=== PATIENT | male | born 1965 | race Caucasian/White ===

== ENCOUNTER → 2018-09-30 | Outpatient (CLI) | payer OTHER ==
--- NOTE | 2018-09-30 13:27 | XR ---
EXAMINATION TYPE: XR cervical spine comp DATE OF EXAM: 09/30/2018 TECHNIQUE: Frontal, lateral, oblique, and open mouth view of the cervical spine are obtained. HISTORY: M47.22 cervical spondylosis per order . Left arm tingling COMPARISON: None FINDINGS: The cervical spine is visualized in its entirety from C1 thru the top of T1 level, it is s traightened in alignment without evidence of acute fracture or dislocation. The pre-vertebral soft t issue appears within normal limits. The C1-C2 articulation is within normal limits on the open mouth view. There is anterior fusion plate with ossific fusion from C5 through C7 levels. C7 screws are so mewhat low in position encroaching near C7-T1 disc space on lateral view but appear to be within infe rior C7 vertebra and oblique images. There is mild disc space narrowing C3-C4 level. There is moderat e anterior spurring C3 and C4 vertebral body levels. Oblique images are satisfactory. Overlying soft tissue is unremarkable. Absent left C6 screw is noted on frontal view. IMPRESSION: Postsurgical changes C5-C7 level with straightened alignment. Desired arthrodesis felt pr esent. Other findings as noted above.
== END | disposition home or self-care (01) ==
LOC: RADXRMAIN 13:04
PROVIDERS: ATTEND Neurological Surgery
DX: M99.71 Connective tissue and disc stenosis of intervertebral foramina of cervical region (principal); Z98.1 Arthrodesis status
CPT/HCPCS: 72050

== ENCOUNTER → 2018-10-10 | Outpatient (CLI) | payer OTHER ==
--- NOTE | 2018-10-11 22:04 | CT ---
EXAMINATION TYPE: CT cervical spine wo con DATE OF EXAM: 10/10/2018 COMPARISON: 09/16/2018 MRI of the cervical spine from [facility]. HISTORY: Left side neck pain with radiation to the left arm. Left arm numbness also. CT DLP: 1169 mGycm. Automated Exposure Control for Dose Reduction was Utilized. TECHNIQUE: CT scan of the cervical spine is obtained without contrast, axial images are obtained, sa gittal and coronal reformatted images are also reviewed. FINDINGS: Postsurgical changes are seen of C5-C7 with anterior cervical fusion device as seen on the prior exam. There is osseous fusion of these vertebrae is and resultant straightening of the usual ce rvical lordosis. There is grade 1 anterolisthesis of C3 on C4 and a small posterior disc osteophyte c omplex of C4-C5. No evidence of acute fracture or dislocation of the cervical spine is seen. No hardw are fracture. Degenerative endplate changes are most pronounced at C3-C4. Multilevel uncovertebral hy pertrophy and facet arthropathy are seen. C2-C3: There is a small broad-based disc bulge and pronounced left facet arthropathy with uncovertebr al hypertrophy creating severe left neural foraminal narrowing and moderate right neural foraminal na rrowing. No spinal canal stenosis is evident. C3-C4: There is uncovertebral hypertrophy and facet arthropathy creating severe bilateral neural fora sophia narrowing. A left paracentral disc herniation is also seen creating moderate spinal canal steno sis despite the grade 1 anterolisthesis at this level. C4-C5: There is a small central disc herniation, uncovertebral hypertrophy and facet arthropathy crea ting moderate bilateral neural foraminal narrowing and mild spinal canal stenosis. C5-C7 postsurgical changes of anterior cervical fusion device and osseous fusion. At C5-C6 there is m ild bilateral neural foraminal narrowing and at C6-C7 there is severe right neural foraminal narrowin g and moderate left neural foraminal narrowing at C7-T1 there is no significant neural foraminal narr owing. Foraminal narrowing is from uncovertebral hypertrophy and facet arthropathy. Minimal biapical subsegmental atelectasis is seen. IMPRESSION: 1. Small central disc herniation at C4-C5 creating mild spinal canal stenosis. 2. Left paracentral disc herniation at C3-C4 creating moderate spinal canal stenosis. Grade 1 anterol isthesis is seen at this level, likely on a degenerative basis. 3. Moderate to severe multilevel degenerative disc disease creating variable degrees of neural forami nal narrowing as described above most severe at C2-C3 and C3-C4. 4. Postoperative changes of C5-C7 with resultant straightening of usual cervical lordosis. No evidenc e of acute fracture of the cervical spine or hardware fracture.
== END | disposition home or self-care (01) ==
LOC: RADCTMAIN 12:14
PROVIDERS: ATTEND Neurological Surgery
DX: M48.02 Spinal stenosis, cervical region (principal); M99.71 Connective tissue and disc stenosis of intervertebral foramina of cervical region; M50.11 Cervical disc disorder with radiculopathy, high cervical region; M43.12 Spondylolisthesis, cervical region; Z98.890 Other specified postprocedural states
CPT/HCPCS: 72125

== ENCOUNTER → 2019-11-09 | Outpatient (CLI) | payer OTHER ==
--- NOTE | 2019-11-09 12:02 | US ---
EXAMINATION TYPE: US gallbladder DATE OF EXAM: 11/09/2019 COMPARISON: NONE CLINICAL HISTORY: R10.11 RUQ PAIN. RUQ pain, nausea and vomiting for 1 month EXAM MEASUREMENTS: Liver Length: 21.4 cm Gallbladder Wall: 0.4 cm CBD: 0.6 cm Right Kidney: 12.1 x 5.0 x 6.1 cm Pancreas: Tail obscured by overlying bowel gas Liver: enlarged, attenuating Gallbladder: stones noted, with one stone in neck, sludge, thickened GB wall. No pericholecystic flu id is noted. Evidence for sonographic Flores's sign: no CBD: wnl Right Kidney: no evidence of hydronephrosis or mass IMPRESSION: 1. Cholelithiasis. There is a thickened gallbladder wall. Correlate for acute cholecystitis. 2. Hepatomegaly with mild fatty infiltration.
== END | disposition home or self-care (01) ==
LOC: RADUSWWP 10:45
PROVIDERS: ATTEND Family Medicine
DX: K80.20 Calculus of gallbladder without cholecystitis without obstruction (principal); K82.8 Other specified diseases of gallbladder; K76.0 Fatty (change of) liver, not elsewhere classified; R16.0 Hepatomegaly, not elsewhere classified
CPT/HCPCS: 76705

== ENCOUNTER 2019-12-22 07:43 | Day surgery (SDC) | payer OTHER ==
[2019-12-21 10:03] VITALS: BMI 36.5
[~2019-12-22 07:43] MED LIST: DEXAMETHASONE SOD PHOSPHATE 10 MG/ML 1 ML VIAL IV ONE; HEPARIN SODIUM,PORCINE 5,000 UNIT/ML 1 ML VIAL SQ ONE; KETOROLAC 30 MG/ML 1 ML VIAL IVP SCH; LACTATED RINGERS 1,000 ML IV SCH; LIDOCAINE 1% (10MG/ML) FOR IV START INTRADERMA PRN; METOCLOPRAMIDE 5 MG/ML 2 ML VIAL IVP PRN; ONDANSETRON 4 MG/2 ML VIAL IVP ONE
[2019-12-22 08:18] LABS: Glucose,Whole Blood 114 mg/dL (75-99)
--- NOTE | 2019-12-22 08:47 | P.GSHP ---
History of Present Illness H&P Date: 12/22/19 Chief Complaint: Right upper quadrant pain This a 54-year-old male who's had complaints of right quadrant pain. Patient workup found have gallstones. He presents today for laparoscopic cholecystectomy. Past Medical History Past Medical History: COPD, Diabetes Mellitus, Hypertension History of Any Multi-Drug Resistant Organisms: MRSA Date of last positivie culture/infection: 1999 MDRO Source:: face Past Surgical History: Appendectomy Additional Past Surgical History / Comment(s): neck fusion bone from hip. back surgery d/t congenital defect. chain saw to face with sutures Past Anesthesia/Blood Transfusion Reactions: Previous Problems w/ Anesthesia Additional Past Anesthesia/Blood Transfusion Reaction / Comment(s): combative when coming out anesthesia Smoking Status: Current every day smoker - Past Family History Mother Family Medical History: No Reported History Medications and Allergies Home Medications Medication Instructions Recorded Confirmed Type Albuterol Inhaler [Ventolin Hfa 1 - 2 puff INHALATION DAILY PRN 12/21/19 12/22/19 History Inhaler] Gabapentin 800 mg PO QID 12/21/19 12/22/19 History Hydrocodone/Acetaminophen [[place] 1 tab PO TID 12/21/19 12/22/19 History 7.5-325] Ipratropium/Albuterol Sulfate 1 puff INHALATION DAILY PRN 12/21/19 12/22/19 History [Combivent Respimat Inhaler] Omeprazole 20 mg PO DAILY 12/21/19 12/22/19 History PARoxetine HCL [Paxil] 40 mg PO DAILY 12/21/19 12/22/19 History amLODIPine [Norvasc] 10 mg PO DAILY 12/21/19 12/22/19 History buPROPion HCL [buPROPion HCL SR] 150 mg PO DAILY 12/21/19 12/22/19 History metFORMIN HCL [Glucophage] 500 mg PO BID 12/21/19 12/22/19 History Allergies Allergy/AdvReac Type Severity Reaction Status Date / Time No Known Allergies Allergy Verified 12/22/19 08:00 Surgical - Exam Vital Signs Temp Pulse Resp BP Pulse Ox 98 F 51 L 16 146/73 94 L 12/22/19 08:04 12/22/19 08:04 12/22/19 08:04 12/22/19 08:04 12/22/19 08:04 - General well developed, well nourished, no distress - Eyes PERRL - ENT normal pinna - Neck no masses - Respiratory normal expansion - Cardiovascular Rhythm: regular - Abdomen Abdomen: soft Results - Labs Abnormal Lab Results - Last 24 Hours (Table) 12/22/19 Range/Units 08:14 POC Glucose (mg/dL) 114 H (75-99) mg/dL Assessment and Plan Assessment: Right upper quadrant pain Cholelithiasis We'll perform laparoscopic cholecystectomy.
[2019-12-22] MEDS ORDERED: MIDAZOLAM 2 MG/2 ML VIAL ONE (09:00)
[2019-12-22] MEDS ORDERED: GLYCOPYRROLATE 0.2 MG/ML 2 ML VIAL ONE (09:00)
[2019-12-22] MEDS ORDERED: LIDOCAINE 1% INJ 10MG/ML (20 ML MDV) ONE (09:00)
[2019-12-22] MEDS ORDERED: ROCURONIUM BROMIDE 10 MG/ML 5 ML VIAL IV ONE (09:00)
[2019-12-22] MEDS ORDERED: KETOROLAC 30 MG/ML 1 ML VIAL ONE (09:00)
[2019-12-22] MEDS ORDERED: PROPOFOL 10 MG/ML 20 ML VIAL IV ONE (09:00)
[2019-12-22] MEDS ORDERED: fentaNYL (PF) 50 MCG/ML 2 ML AMP ONE (09:00)
[2019-12-22] MEDS ORDERED: SUCCINYLCHOLINE CHLORIDE 100 MG/5 ML SYR IV ONE (09:00)
[2019-12-22] MEDS ORDERED: NEOSTIGMINE 1 MG/ML 10 ML VIAL ONE (09:00)
[2019-12-22] MEDS ORDERED: BUPIVACAINE (PF) 0.5% 30 ML VIAL SQ ONE (09:28)
[2019-12-22] MEDS ORDERED: LACTATED RINGERS 1,000 ML IV ONE ×2 (09:57)
--- NOTE | 2019-12-22 09:58 | P.OP ---
Date of Procedure: 12/22/19 Preoperative Diagnosis: Cholecystitis Cholelithiasis Postoperative Diagnosis: Cholecystitis Cholelithiasis Hydrops of gallbladder Procedure(s) Performed: Laparoscopic cholecystectomy Anesthesia: ILYA Surgeon: Curt Macedo Estimated Blood Loss (ml): 5 Pathology: other (Gallbladder) Condition: stable Disposition: PACU Description of Procedure: The patient was placed on the operating table. The patient received a general endotracheal tube anesthesia. The patients abdomen was prepped and draped in the usual sterile fashion. Through an infraumbilical stab incision, the fascia of the anterior abdominal wall was grasped with a pair of Kochers and then the Veress needle was placed in the peritoneal cavity. Position of the Veress needle was confirmed with positive drop test. The abdomen was then insufflated. After adequate insufflation, the 10 mm trocar was placed in the peritoneal cavity. Following this the laparoscope was placed in the peritoneal cavity. The patient was placed in the head-up, right side up position and then a 5 mm trocar was placed in the right lateral and right subcostal position under direct visualization. A 8 mm trocar was placed in the epigastric position. The gallbladder was grasped in the fundus and infundibulum. Traction on the gallbladder was placed in the lateral and the cephalad positions. The triangle of Calot was visualized.. The cystic duct was bluntly dissected until the union of the cystic duct and common bile duct was seen. A critical view of safety was achieved. The cystic duct was then divided and sealed with the Harmonic scissors. A PDS Endoloop was then placed throughout the cystic duct stump. The cystic artery divided and sealed with the Harmonic scissors. The gallbladder was then removed from the liver bed using Harmonic scissors. The gallbladder was then extracted through the epigastric port site. Operative field was checked for any bleeding spots and Harmonic scissors was used to coagulate the liver bed. The abdomen was irrigated. The trocars were removed. The skin was closed using interrupted 3-0 Vicryl suture. Dermabond dressing were applied. The patient tolerated the procedure well.
[2019-12-22 10:05] VITALS: TEMP 97.2
[2019-12-22 10:15] LABS: Glucose,Whole Blood 134 mg/dL (75-99)
[2019-12-22] MEDS: HYDROmorphone 0.5 MG/0.5 ML SYRINGE IVP PRN ×4 (10:19→10:40)
[2019-12-22 11:45] VITALS: BP 141/78; PULSE 57; RESP 18
== END 2019-12-22 12:03 | disposition home or self-care (01) ==
LOC: OR 07:43
PROVIDERS: ATTEND Surgery
DX: K81.1 Chronic cholecystitis (principal); K82.1 Hydrops of gallbladder; I10 Essential (primary) hypertension; J44.9 Chronic obstructive pulmonary disease, unspecified; E11.9 Type 2 diabetes mellitus without complications; F32.9 Major depressive disorder, single episode, unspecified; K21.9 Gastro-esophageal reflux disease without esophagitis; F17.200 Nicotine dependence, unspecified, uncomplicated; Z86.14 Personal history of Methicillin resistant Staphylococcus aureus infection; Z90.49 Acquired absence of other specified parts of digestive tract; Z79.84 Long term (current) use of oral hypoglycemic drugs; Z79.899 Other long term (current) drug therapy; Z98.1 Arthrodesis status
CPT/HCPCS: 88304; 47562; J2250; J1644; J1100; J2710; J0690; J2405; J2001; J3010; J1885; J0330; J2704; J1170

== ENCOUNTER 2020-01-25 06:34 | Day surgery (SDC) | payer OTHER ==
[2020-01-20 14:07] VITALS: BMI 36.5
[~2020-01-25 06:34] MED LIST changes: -DEXAMETHASONE SOD PHOSPHATE 10 MG/ML 1 ML VIAL IV ONE; -HEPARIN SODIUM,PORCINE 5,000 UNIT/ML 1 ML VIAL SQ ONE; -KETOROLAC 30 MG/ML 1 ML VIAL IVP SCH; -METOCLOPRAMIDE 5 MG/ML 2 ML VIAL IVP PRN; -ONDANSETRON 4 MG/2 ML VIAL IVP ONE
[2020-01-25 07:09] VITALS: TEMP 98.3
[2020-01-25 07:18] LABS: Glucose,Whole Blood 107 mg/dL (75-99)
[2020-01-25] MEDS ORDERED: PROPOFOL 10 MG/ML 20 ML VIAL IV ONE (07:52)
[2020-01-25] MEDS ORDERED: LIDOCAINE 1% INJ 10MG/ML (20 ML MDV) ONE (07:52)
--- NOTE | 2020-01-25 07:54 | P.GSHP ---
History of Present Illness H&P Date: 01/25/20 Chief Complaint: Epigastric pain This a 54-year-old male who presents today for EGD. Patient's had complaints of epigastric pain. Past Medical History Past Medical History: COPD, Diabetes Mellitus, GERD/Reflux, Hypertension History of Any Multi-Drug Resistant Organisms: MRSA Date of last positivie culture/infection: 1999 MDRO Source:: face Past Surgical History: Appendectomy, Cholecystectomy Additional Past Surgical History / Comment(s): neck fusion bone from hip. back surgery d/t congenital defect. chain saw to face with sutures. COLONOSCOPY Past Anesthesia/Blood Transfusion Reactions: Previous Problems w/ Anesthesia Additional Past Anesthesia/Blood Transfusion Reaction / Comment(s): combative when coming out anesthesia Smoking Status: Current every day smoker - Past Family History Mother Family Medical History: Deep Vein Thrombosis (DVT) Medications and Allergies Home Medications Medication Instructions Recorded Confirmed Type Albuterol Inhaler [Ventolin Hfa 1 - 2 puff INHALATION DAILY PRN 12/21/19 01/25/20 History Inhaler] Gabapentin 800 mg PO QID 12/21/19 01/25/20 History Hydrocodone/Acetaminophen [[place] 1 tab PO TID 12/21/19 01/25/20 History 7.5-325] Ipratropium/Albuterol Sulfate 1 puff INHALATION DAILY PRN 12/21/19 01/25/20 History [Combivent Respimat Inhaler] Omeprazole 20 mg PO DAILY 12/21/19 01/25/20 History PARoxetine HCL [Paxil] 40 mg PO DAILY 12/21/19 01/25/20 History amLODIPine [Norvasc] 10 mg PO DAILY 12/21/19 01/25/20 History buPROPion HCL [buPROPion HCL SR] 150 mg PO DAILY 12/21/19 01/25/20 History metFORMIN HCL [Glucophage] 500 mg PO BID 12/21/19 01/25/20 History Sucralfate [Carafate] 1 gm PO BID 01/20/20 01/25/20 History Allergies Allergy/AdvReac Type Severity Reaction Status Date / Time No Known Allergies Allergy Verified 01/25/20 07:07 Surgical - Exam Vital Signs Temp Pulse Resp BP Pulse Ox 98.3 F 59 L 17 159/92 96 01/25/20 07:08 01/25/20 07:08 01/25/20 07:08 01/25/20 07:08 01/25/20 07:08 - General well developed, well nourished, no distress - Eyes PERRL - ENT normal pinna - Neck no masses - Respiratory normal expansion - Cardiovascular Rhythm: regular - Abdomen Abdomen: soft, non tender Results - Labs Abnormal Lab Results - Last 24 Hours (Table) 01/25/20 Range/Units 07:08 POC Glucose (mg/dL) 107 H (75-99) mg/dL Assessment and Plan Assessment: Epigastric pain. We'll perform EGD tonight for gastritis.
--- NOTE | 2020-01-25 08:06 | P.OP ---
Date of Procedure: 01/25/20 Preoperative Diagnosis: Epigastric pain Postoperative Diagnosis: Mild antral gastritis Procedure(s) Performed: EGD Anesthesia: MAC Surgeon: Curt Macedo Pathology: other (Antrum, esophagus) Condition: stable Disposition: PACU Description of Procedure: The patient's placed on the endoscopy table in the lateral position. He received IV sedation. The gastroscope placed oropharynx passed in the esophagus and into the stomach. Scope was then placed through the pylorus. The first and second portion of the duodenum appeared normal. The scope was then brought back the antrum this was mildly inflamed. A biopsies performed. The scope was unretroflexed and remainder the stomach appeared normal. The GE junction was visualized. There is no significant hiatal hernia. The GE junction was at 40 cm The distal esophagus appeared inflamed a biopsies performed. The proximal esophagus appeared normal. Scope was withdrawn for patient.
[2020-01-25 08:24] VITALS: BP 143/85; PULSE 55; RESP 16
== END 2020-01-25 08:38 | disposition home or self-care (01) ==
LOC: ORWHC2ENDO 06:34
PROVIDERS: ATTEND Surgery
DX: K29.50 Unspecified chronic gastritis without bleeding (principal); K21.0 Gastro-esophageal reflux disease with esophagitis; I10 Essential (primary) hypertension; E11.9 Type 2 diabetes mellitus without complications; J44.9 Chronic obstructive pulmonary disease, unspecified; Z90.49 Acquired absence of other specified parts of digestive tract; Z86.14 Personal history of Methicillin resistant Staphylococcus aureus infection; Z79.84 Long term (current) use of oral hypoglycemic drugs; Z79.899 Other long term (current) drug therapy; Z98.1 Arthrodesis status; F17.200 Nicotine dependence, unspecified, uncomplicated
CPT/HCPCS: 88305; 43239; J2001; J2704

== ENCOUNTER 2020-02-04 16:04 | Observation (INO) | payer OTHER ==
[2020-02-04 17:12] LABS: Basophils # (A) 0.1 k/uL (0-0.2); Basophils % (A) 1 %; Eosinophils # (A) 0.2 k/uL (0-0.7); Eosinophils % (A) 2 %; HCT 51.9 % (39.0-53.0); HGB 17.3 gm/dL (13.0-17.5); Lymphocytes # (A) 2.3 k/uL (1.0-4.8); Lymphocytes % (A) 17 %; MCHC 33.4 g/dL (31.0-37.0); MCV 93.1 fL (80.0-100.0); Mean Platelet Volume 6.8; Monocytes # (A) 0.9 k/uL (0-1.0); Monocytes % (A) 7 %; Neutrophils # (A) 9.6 k/uL (1.3-7.7); Neutrophils % (A) 72 %; Platelet Count 364 k/uL (150-450); RBC 5.58 m/uL (4.30-5.90); RDW 13.5 % (11.5-15.5); WBC 13.2 k/uL (3.8-10.6)
[2020-02-04 17:35] LABS: ALT 30 U/L (4-49); AST 66 U/L (17-59); African American GFR (CKD) >90 (>60 ml/min/1.73 sqM); Albumin 4.9 g/dL (3.5-5.0); Alkaline Phosphatase 94 U/L (38-126); Anion Gap 10 mmol/L; Blood Urea Nitrogen 13 mg/dL (9-20); Calcium 9.8 mg/dL (8.4-10.2); Carbon Dioxide 25 mmol/L (22-30); Chloride 102 mmol/L (98-107); Glucose 119 mg/dL (74-99); Magnesium 1.9 mg/dL (1.6-2.3); Non-African American GFR(CKD) >90 (>60 ml/min/1.73 sqM); Potassium 4.1 mmol/L (3.5-5.1); Sodium 137 mmol/L (137-145); Total Bilirubin 1.4 mg/dL (0.2-1.3); Total Protein 7.4 g/dL (6.3-8.2)
[2020-02-04] MEDS ORDERED: ASPIRIN 81 MG PO STA (17:36)
[2020-02-04] MEDS ORDERED: MORPHINE SULFATE 4 MG/ML SYRINGE IVP STA (17:36)
--- NOTE | 2020-02-04 17:38 | ED ---
Chest Pain HPI - General Chief Complaint: Chest Pain Stated Complaint: chest pain Time Seen by Provider: 02/04/20 16:10 Source: patient Mode of arrival: wheelchair Limitations: no limitations - History of Present Illness Initial Comments: The patient is a 54-year-old male with no past cardiac history presents emergency Department with reported chest pain. He states that he has had the pain for several weeks. It all started after he got his gallbladder removed 3 weeks ago. He describes it as a sharp shooting pain which is located in the center of his chest. States he is previously hospitalized at [facility] where they did an upper endoscopy on him. He stated it was negative. He did have a stress test prior to his gall bladder surgery and was normal therefore he was able to proceed with the procedure. He denies any provocative factors. States it awoke him from sleep at 2 AM. Pain has been constant. It does not take any medications for his symptoms. Does make him diaphoretic and short of breath. States the pain is 10 out of 10. He attempted to call his primary care doctor who per the patient has stated that he may require hospitalization for this continued pain. He denies history of cardiac arrhythmias. No ripping or tearing sensation to his back. Denies any vomiting. No changes in his bowel or bladder habits. Denies any unilateral numbness or weakness into his legs. - Related Data Home Medications Medication Instructions Recorded Confirmed Albuterol Inhaler [Ventolin Hfa 1 - 2 puff INHALATION RT-QID PRN 12/21/19 02/05/20 Inhaler] Gabapentin 800 mg PO QID 12/21/19 02/05/20 Hydrocodone/Acetaminophen [[place] 1 tab PO TID 12/21/19 02/05/20 7.5-325] Ipratropium/Albuterol Sulfate 1 puff INHALATION RT-QID PRN 12/21/19 02/05/20 [Combivent Respimat Inhaler] Omeprazole 20 mg PO DAILY 12/21/19 02/05/20 PARoxetine HCL [Paxil] 40 mg PO DAILY 12/21/19 02/05/20 amLODIPine [Norvasc] 10 mg PO DAILY 12/21/19 02/05/20 buPROPion HCL [buPROPion HCL SR] 150 mg PO DAILY 12/21/19 02/05/20 metFORMIN HCL [Glucophage] 500 mg PO BID 12/21/19 02/05/20 Sucralfate [Carafate] 1 gm PO BID 01/20/20 02/05/20 Allergies Allergy/AdvReac Type Severity Reaction Status Date / Time No Known Allergies Allergy Verified 02/05/20 09:58 Review of Systems ROS Statement: Those systems with pertinent positive or pertinent negative responses have been documented in the HPI. ROS Other: All systems not noted in ROS Statement are negative. EKG Findings - EKG Comments: EKG Findings:: EKG demonstrates a sinus bradycardia with a ventricular rate of 54. AK interval 186. QRS 90. QTC 413. No acute ST segment elevations or depressions concerning for ischemic changes Past Medical History Past Medical History: COPD, Diabetes Mellitus, GERD/Reflux, Hypertension History of Any Multi-Drug Resistant Organisms: MRSA Date of last positivie culture/infection: 1999 MDRO Source:: face Past Surgical History: Appendectomy, Cholecystectomy Additional Past Surgical History / Comment(s): neck fusion bone from hip. back surgery d/t congenital defect. chain saw to face with sutures. COLONOSCOPY Past Anesthesia/Blood Transfusion Reactions: Previous Problems w/ Anesthesia Additional Past Anesthesia/Blood Transfusion Reaction / Comment(s): combative when coming out anesthesia Past Psychological History: Anxiety, Depression Smoking Status: Current every day smoker Past Alcohol Use History: None Reported Past Drug Use History: None Reported - Past Family History Mother Family Medical History: Deep Vein Thrombosis (DVT) General Exam Limitations: no limitations General appearance: alert, in no apparent distress Head exam: Present: atraumatic, normocephalic, normal inspection Eye exam: Present: normal appearance, PERRL, EOMI. Absent: scleral icterus, conjunctival injection, periorbital swelling ENT exam: Present: normal exam, mucous membranes moist Neck exam: Present: normal inspection. Absent: tenderness, meningismus, lymphadenopathy Respiratory exam: Present: normal lung sounds bilaterally. Absent: respiratory distress, wheezes, rales, rhonchi, stridor Cardiovascular Exam: Present: regular rate, normal rhythm, normal heart sounds. Absent: systolic murmur, diastolic murmur, rubs, gallop, clicks GI/Abdominal exam: Present: soft, normal bowel sounds. Absent: distended, tenderness, guarding, rebound, rigid Extremities exam: Present: normal inspection, full ROM, normal capillary refill. Absent: tenderness, pedal edema, joint swelling, calf tenderness Back exam: Present: normal inspection Neurological exam: Present: alert, oriented X3, CN II-XII intact Psychiatric exam: Present: normal affect, normal mood Skin exam: Present: warm, dry, intact, normal color. Absent: rash Course Vital Signs 02/04/20 02/04/20 02/04/20 16:07 18:27 20:00 Temperature 97.5 F L 98.1 F Pulse Rate 60 62 Pulse Rate [ 160 H Left] Respiratory 18 16 18 Rate Blood Pressure 159/94 156/88 Blood Pressure 160/84 [Left Arm] O2 Sat by Pulse 97 96 98 Oximetry 02/04/20 20:30 Temperature Pulse Rate 59 L Pulse Rate [ Left] Respiratory 18 Rate Blood Pressure 134/88 Blood Pressure [Left Arm] O2 Sat by Pulse 95 Oximetry Chest Pain MDM - MDM Upon arrival the patient was placed into room 11. A thorough history and physical exam is performed. The patient is given 4 mg of morphine for pain control. He is also given a dose of aspirin. 12-lead EKG was performed which demonstrates no acute ST segment elevation. Laboratory studies were conducted. Because of the patient's persistent chest pain I did CT his chest for possible PE. Laboratory studies ventricular with blood cell count 13.2. Troponin is negative. CT of the patient's chest demonstrates no acute process. The patient does have reproducible pain with palpation of his sternum. I called and discussed case with Dr. Brito who accepted admission for the patient. We will trend his troponins and have cardiology evaluate him. The patient was transferred to the floor in stable condition Disposition Clinical Impression: Chest pain Disposition: ADMITTED IP TO THIS HOSP Condition: Stable Is patient prescribed a controlled substance at d/c from ED?: No Decision to Admit Reason: Admit from EC Decision Date: 02/04/20 Decision Time: 19:42
[2020-02-04] MEDS ORDERED: HYDROmorphone 1 MG/ML 1 ML SYRINGE IVP STA (18:57)
--- NOTE | 2020-02-04 19:25 | CT ---
EXAMINATION TYPE: CT chest angio for PE with contrast with 3-D reconstruction renderings DATE OF EXAM: 02/04/2020 COMPARISON: None HISTORY: Chest pain CT DLP: 805.2 mGycm Automated exposure control for dose reduction was used. CONTRAST: CT Chest for pulmonary embolism performed with with IV Contrast, patient injected with 100 mL of Isovue 370. FINDINGS: LUNGS: The lungs are grossly clear, there is no concerning parenchymal mass or nodule identified. The re is no pleural effusion or pneumothorax seen. The tracheobronchial tree is patent. MEDIASTINUM: There is satisfactory enhancement of the pulmonary artery and its branches, with no CT e vidence for pulmonary embolism. No acute aortic findings. No cardiomegaly or pericardial effusion. No adenopathy. OTHER: No additional significant abnormality is seen. IMPRESSION: No acute process.
[2020-02-04] MEDS ORDERED: NITROGLYCERIN OINT 1 INCH/GM PACKET TOPICAL STA (19:40)
[2020-02-04] MEDS ORDERED: NALOXONE 0.4 MG/ML 1 ML VIAL IV PRN (19:42)
[2020-02-04] MEDS ORDERED: IPRATROPIUM-ALBUTEROL 3 ML NEB INHALATION PRN (20:02)
[2020-02-04] MEDS: MORPHINE SULFATE 4 MG/ML SYRINGE IV PRN (22:03)
[2020-02-04] MEDS: GABAPENTIN 400 MG CAP PO SCH (22:04)
--- NOTE | 2020-02-04 22:59 | CT ---
EXAMINATION TYPE: CT abdomen pelvis wo con DATE OF EXAM: 02/04/2020 COMPARISON: None HISTORY: abd pain CT DLP: 1205.4 mGycm Automated exposure control for dose reduction was used. Images are obtained from the diaphragm to the floor the pelvis with no contrast. There is mild subsegmental atelectasis at both posterior lung bases. Heart appears slightly enlarged. There is no pericardial effusion. Stomach is intact. Liver shows no focal defect. Liver is enlarged and measures 21 cm in length. The bile ducts are not dilated. It is not clear if the gallbladder is p resent. There is probably a contracted gallbladder with some calcified gallstones. There are clips ap parently from cholecystectomy. There is no pancreatic mass. Spleen appears normal. There is no adrenal mass. There is contrast in both kidneys from chest CT scan earlier today. There i s no hydronephrosis. Ureters are not dilated. There is probably a 12 mm cyst in the lateral right kid lola. There is no retroperitoneal adenopathy. Bladder distends smoothly without contrast. There is no inguinal hernia. There is no free fluid in the pelvis. There is no evidence of pelvic mass. Appendix is not seen. There is no sign of a thickened appendix. There is no mesenteric edema. There is no ascites or free air. There is no evidence of bowel obstruct ion. There is some degenerative spurring in the lumbar spine. There is no evidence of focal bone dest ruction. Bony pelvis is intact. IMPRESSION: Mild hepatomegaly. Contracted gallbladder with small calcified gallstones. Mild patchy atelectasis at the lung bases.
[2020-02-05] MEDS: MORPHINE SULFATE 4 MG/ML SYRINGE IV PRN ×3 (01:04→08:50)
--- NOTE | 2020-02-05 04:44 | HP ---
HISTORY AND PHYSICAL 54-year-old white male came to the hospital with chest pain for several weeks, started after he had his gallbladder removed 3 weeks ago. His current pain is in the center of his chest. He had upper endoscopy recently which was normal. He had a stress test prior to his gallbladder surgery which was normal. Does make him diaphoretic and short of breath. Pain is 10/10. He has no ripping or tearing sensation in his back. CT of the chest was negative. He has elevated liver enzymes. Will consult with surgeon who did the surgery. HOME MEDS: Albuterol, gabapentin, Paxil, Norvasc, Wellbutrin, Glucophage, Carafate, [place]. REVIEW OF SYSTEMS: Fourteen-point review of systems negative except for mentioned in HPI. EKG shows sinus bradycardia. No ST-T changes. Negative troponin. PAST MEDICAL HISTORY: COPD, diabetes mellitus, GERD, hypertension, status post cholecystectomy, appendectomy and fusion; anxiety, depression and current everyday smoker. FAMILY HISTORY: Mother DVT. PHYSICAL EXAMINATION: Blood pressure is 150s/80s to 90s, O2 96-97, pulse rate 16, temp 97.5, respiratory 16- 18. CARDIOVASCULAR: S1-S2. LUNGS: Show mild wheeze x4. HEMATOLOGY: Negative Homans. PSYCH: Fair mood and affect. NEUROLOGIC: Alert and oriented x3. LUNGS: Show scattered wheeze, rales at the bases. ASSESSMENT: 1. Atypical chest pain. 2. Chronic obstructive pulmonary disease. 3. Diabetes. 4. Hypertension. Rule out elevated liver enzymes. Will get cardiology to clear him for discharge with possible surgeon to check him out for his liver and elevated liver enzymes. MMODL / IJN: [id number] /
[2020-02-05 06:38] LABS: Glucose,Whole Blood 146 mg/dL (75-99)
[2020-02-05 06:51] LABS: Basophils % (A) 0 %; Eosinophils # (A) 0.1 k/uL (0-0.7); Eosinophils % (A) 1 %; HCT 51.8 % (39.0-53.0); HGB 16.9 gm/dL (13.0-17.5); Lymphocytes # (A) 0.8 k/uL (1.0-4.8); Lymphocytes % (A) 8 %; MCH 30.6 pg (25.0-35.0); MCHC 32.7 g/dL (31.0-37.0); MCV 93.6 fL (80.0-100.0); Mean Platelet Volume 6.9; Monocytes # (A) 0.7 k/uL (0-1.0); Monocytes % (A) 7 %; Neutrophils # (A) 7.6 k/uL (1.3-7.7); Neutrophils % (A) 82 %; Platelet Count 338 k/uL (150-450); RBC 5.54 m/uL (4.30-5.90); RDW 13.4 % (11.5-15.5); WBC 9.3 k/uL (3.8-10.6)
[2020-02-05 06:59] LABS: African American GFR (CKD) >90 (>60 ml/min/1.73 sqM); Anion Gap 10 mmol/L; Blood Urea Nitrogen 11 mg/dL (9-20); Calcium 9.4 mg/dL (8.4-10.2); Carbon Dioxide 25 mmol/L (22-30); Chloride 101 mmol/L (98-107); Glucose 138 mg/dL (74-99); Non-African American GFR(CKD) >90 (>60 ml/min/1.73 sqM); Potassium 4.6 mmol/L (3.5-5.1); Sodium 136 mmol/L (137-145)
[2020-02-05] MEDS ORDERED: MAG HYDROX/AL HYDROX/SIMETH 30 ML, HYOSCYAMINE ELIXIR 10 ML, LIDOCAINE VISCOUS 2% 10 ML PO ONE ×3 (07:59)
[2020-02-05] MEDS: PANTOPRAZOLE 40 MG TABLET PO SCH (08:45)
[2020-02-05] MEDS: GABAPENTIN 400 MG CAP PO SCH ×4 (08:45→20:56)
[2020-02-05] MEDS: buPROPion SR 150 MG TABLET.ER PO SCH (08:45)
[2020-02-05] MEDS: amLODIPine 10 MG TAB PO SCH (08:46)
--- NOTE | 2020-02-05 09:37 | P.CRDCN ---
History of Present Illness History of present illness: HISTORY OF PRESENTING ILLNESS This is a pleasant 54-year-old male past medical history significant for COPD, diabetes mellitus, hypertension, chronic nicotine dependence, regular marijuana use and recent cholecystectomy. 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 We have been asked to see in consultation for chest pain. Patient was seen and examined laying flat resting comfortably in bed. He presented to the hospital with symptoms of epigastric discomfort that radiates around his upper torso. He states the pain is intermittent with no specific aggravating factor. He is starting to have discomfort currently as I'm examining him. He is tender in the epigastric region. He denies shortness of breath, dizziness or palpitations. He does have some mild intermittent nausea. He underwent a cholecystectomy November 2019 and then an EGD last month revealing gastritis. DIAGNOSTICS EKG reveals sinus bradycardia heart rate of 54 and no acute ischemic changes. CTA chest reveals the lungs are grossly clear with no concerning mass or nodule identified, tracheobronchial tree is patent, no CT evidence for pulmonary embolism in no acute aortic findings. Laboratory reviewed, to be VC on admission 13.2 repeat this morning 9.3, hemoglobin 16.9, platelets 338, sodium 136, potassium 4.6, creatinine 0.71, total bilirubin 1.4, cardiac enzymes negative 3. Current cardiac medications include amlodipine 10 mg daily. REVIEW OF SYSTEMS At the time of my exam: CONSTITUTIONAL: Denies fever or chills. CARDIOVASCULAR: Denies chest pain, shortness of breath, orthopnea, PND or palpitations. RESPIRATORY: Denies cough. GASTROINTESTINAL: Complains of epigastric abdominal pain and nausea. Denies diarrhea, constipation or vomiting. MUSCULOSKELETAL: Denies myalgias. NEUROLOGIC: Denies numbness, tingling or weakness. ENDOCRINE: Denies fatigue, weight change, polydipsia or polyurina. GENITOURINARY: Denies burning, hematuria or urgency with micturation. HEMATOLOGIC: Denies history of anemia or bleeding. PHYSICAL EXAMINATION Blood pressure 157/79 heart rate 64 afebrile and maintaining oxygen saturation on room air. CONSTITUTIONAL: No apparent distress. HEENT: Head is normocephalic. Pupils are equal, round. Sclerae anicteric. Mucous membranes of the mouth are moist. No JVD. No carotid bruit. CHEST EXAMINATION: Lungs are clear to auscultation. No chest wall tenderness is noted on palpation or with deep breathing. HEART EXAMINATION: Regular rate and rhythm. S1, S2 heard. No murmurs, gallops or rub. ABDOMEN: Soft, significant epigastric tenderness. Positive bowel sounds. EXTREMITIES: 2+ peripheral pulses, no lower extremity edema and no calf tenderness. NEUROLOGIC EXAMINATION: Patient is awake, alert and oriented x3. ASSESSMENT Epigastric pain and tenderness, atypical for angina. An acute coronary event has been ruled out. Hypertension Diabetes mellitus COPD Chronic nicotine dependence PLAN Pain is atypical to be related to angina likely related to GI etiology. An acute coronary event has been ruled out. Given GI cocktail x1 now. Check lipase. Ongoing medical management and evaluation. Recommend outpatient stress testing when abdominal symptoms have improved. Follow in the office with Dr. Rausch upon discharge. Thank you kindly for this consultation. Nurse Practitioner note has been reviewed, I agree with a documented findings and plan of care. Patient was seen and examined. Past Medical History Past Medical History: COPD, Diabetes Mellitus, GERD/Reflux, Hypertension History of Any Multi-Drug Resistant Organisms: MRSA Date of last positivie culture/infection: 1999 MDRO Source:: face Past Surgical History: Appendectomy, Cholecystectomy Additional Past Surgical History / Comment(s): neck fusion bone from hip. back surgery d/t congenital defect. chain saw to face with sutures. COLONOSCOPY Past Anesthesia/Blood Transfusion Reactions: Previous Problems w/ Anesthesia Additional Past Anesthesia/Blood Transfusion Reaction / Comment(s): combative when coming out anesthesia Past Psychological History: Anxiety, Depression Smoking Status: Current every day smoker Past Alcohol Use History: None Reported Past Drug Use History: None Reported - Past Family History Mother Family Medical History: Deep Vein Thrombosis (DVT) Medications and Allergies Home Medications Medication Instructions Recorded Confirmed Type Albuterol Inhaler [Ventolin Hfa 1 - 2 puff INHALATION DAILY PRN 12/21/19 02/04/20 History Inhaler] Gabapentin 800 mg PO QID 12/21/19 02/04/20 History Hydrocodone/Acetaminophen [[place] 1 tab PO TID 12/21/19 02/04/20 History 7.5-325] Ipratropium/Albuterol Sulfate 1 puff INHALATION DAILY PRN 12/21/19 02/04/20 History [Combivent Respimat Inhaler] Omeprazole 20 mg PO DAILY 12/21/19 02/04/20 History PARoxetine HCL [Paxil] 40 mg PO DAILY 12/21/19 02/04/20 History amLODIPine [Norvasc] 10 mg PO DAILY 12/21/19 02/04/20 History buPROPion HCL [buPROPion HCL SR] 150 mg PO DAILY 12/21/19 02/04/20 History metFORMIN HCL [Glucophage] 500 mg PO BID 12/21/19 02/04/20 History Sucralfate [Carafate] 1 gm PO BID 01/20/20 02/04/20 History Allergies Allergy/AdvReac Type Severity Reaction Status Date / Time No Known Allergies Allergy Verified 02/04/20 22:09 Physical Exam Vitals: Vital Signs Temp Pulse Pulse Pulse Resp BP BP 02/05/20 07:15 98.3 F 64 18 157/79 02/05/20 04:00 98.0 F 76 16 148/76 02/04/20 20:30 59 L 18 134/88 02/04/20 20:00 98.1 F 160 H 18 160/84 02/04/20 18:27 62 16 156/88 02/04/20 16:07 97.5 F L 60 18 159/94 Pulse Ox 02/05/20 07:15 95 02/05/20 04:00 97 02/04/20 20:30 95 02/04/20 20:00 98 02/04/20 18:27 96 02/04/20 16:07 97 Intake and Output 02/04/20 02/05/20 02/05/20 22:59 06:59 14:59 Other: Voiding Method Toilet Toilet # Voids 1 Weight 108.862 kg 109.5 kg Results 02/05/20 06:13 02/05/20 06:13 Cardiac Enzymes 02/04/20 02/04/20 02/04/20 Range/Units 16:56 16:56 23:07 AST 66 H (17-59) U/L Troponin I <0.012 <0.012 (0.000-0.034) ng/mL 02/05/20 Range/Units 06:13 AST (17-59) U/L Troponin I <0.012 (0.000-0.034) ng/mL Coagulation 02/04/20 Range/Units 16:56 PT 10.0 (9.0-12.0) sec APTT 24.0 (22.0-30.0) sec CBC 02/04/20 02/05/20 Range/Units 16:56 06:13 WBC 13.2 H 9.3 (3.8-10.6) k/uL RBC 5.58 5.54 (4.30-5.90) m/uL Hgb 17.3 16.9 (13.0-17.5) gm/dL Hct 51.9 51.8 (39.0-53.0) % Plt Count 364 338 (150-450) k/uL Comprehensive Metabolic Panel 02/04/20 02/05/20 Range/Units 16:56 06:13 Sodium 137 136 L (137-145) mmol/L Potassium 4.1 4.6 (3.5-5.1) mmol/L Chloride 102 101 (98-107) mmol/L Carbon Dioxide 25 25 (22-30) mmol/L BUN 13 11 (9-20) mg/dL Creatinine 0.75 0.71 (0.66-1.25) mg/dL Glucose 119 H 138 H (74-99) mg/dL Calcium 9.8 9.4 (8.4-10.2) mg/dL AST 66 H (17-59) U/L ALT 30 (4-49) U/L Alkaline Phosphatase 94 (38-126) U/L Total Protein 7.4 (6.3-8.2) g/dL Albumin 4.9 (3.5-5.0) g/dL Current Medications Generic Name Dose Route Start Last Admin Trade Name Freq PRN Reason Stop Dose Admin Albuterol/Ipratropium 3 ml 02/04/20 20:02 Duoneb 0.5 Mg-3 Mg/3 Ml Soln INHALATION DAILY PRN Dyspnea Amlodipine Besylate 10 mg 02/05/20 09:00 Norvasc PO DAILY [facility] Bupropion HCl 150 mg 02/05/20 09:00 Wellbutrin Sr PO DAILY [facility] Gabapentin 800 mg 02/04/20 22:00 02/04/20 22:04 Neurontin PO 800 mg QID FROILAN Administration Morphine Sulfate 4 mg 02/04/20 19:42 02/05/20 04:16 Morphine Sulfate (Inj) IV 4 mg Q4HR PRN Administration Severe Pain Naloxone HCl 0.2 mg 03/12/20 19:42 Narcan IV Q2M PRN Opioid Reversal Pantoprazole Sodium 40 mg 02/05/20 07:30 Protonix PO AC-[id number] FROILAN Intake and Output 02/04/20 02/05/20 02/05/20 22:59 06:59 14:59 Other: Voiding Method Toilet Toilet # Voids 1 Weight 108.862 kg 109.5 kg 02/05/20 06:13 02/05/20 06:13
[2020-02-05 09:41] LABS: Albumin 4.5 g/dL (3.5-5.0); Bilirubin, Conjugated 1.3 mg/dL (0.0-0.3); Bilirubin,Unconjugated 1.6 mg/dL (0.0-1.1); Total Bilirubin 3.9 mg/dL (0.2-1.3)
--- NOTE | 2020-02-05 10:52 | P.GSCN ---
History of Present Illness Consult date: 02/05/20 Reason for Consult: abdominal pain Requesting physician: Deuce Brito History of present illness: CHIEF COMPLAINT: Abdominal pain HISTORY OF PRESENT ILLNESS: 54-year-old male who presented to the emergency room with a chief complaint of abdominal pain. Patient has a history of laparoscopic cholecystectomy performed in November [address] Macedo. Patient also underwent EGD in January 2020 revealing mild antral gastritis. Patient reports he began having epigastric pain 2 days ago. He denies nausea or vomiting. Denies fever or chills. Denies diarrhea or constipation. Patient is currently rating his pain 10/10. Denies use of alcohol. Denies use of NSAIDs. PAST MEDICAL HISTORY: See list. PAST SURGICAL HISTORY: See list. SOCIAL HISTORY: No illicit drug use. REVIEW OF SYSTEMS: CONSTITUTIONAL: Denies fever or chills. HEENT: Denies blurred vision, vision changes, or eye pain. Denies hemoptysis CARDIOVASCULAR: Denies chest pain or pressure. RESPIRATORY: No shortness of breath. GASTROINTESTINAL: Refer to HPI for pertinent findings HEMATOLOGIC: Denies bleeding disorders. GENITOURINARY: Denies any blood in urine. SKIN: Denies pruitis. Denies rash. PHYSICAL EXAM: VITAL SIGNS: Reviewed. GENERAL: Well-developed. Appears to be in pain and uncomfortable. HEENT: No sclera icterus. Extraocular movements grossly intact. Moist buccal mucosa. Head is atraumatic, normocephalic. ABDOMEN: Soft. Nondistended. Tenderness with palpation of epigastric region NEUROLOGIC: Alert and oriented. Cranial nerves II through XII grossly intact. LABORATORY DATA: WBC 13.2. Repeat 9.3. Bilirubin 1.4 on admission. AST 66. ALT 30. Repeat labs this morning revealed bilirubin 3.9. AST 683. ALT 501. Amylase 35. Lipase 73. IMAGING: CT abdomen and pelvis: Small calcified gallstones. No pancreatic mass. Spleen appears normal., Bile ducts not dilated. Liver is enlarged and measures 21cm in length. ASSESSMENT: 1. Epigastric pain 2. Transaminitis 3. Hyperbilirubinemia 4. Suspected retained common bile duct stone 5. History of cholecystectomy, November 2019 PLAN: NPO Consult GI for evaluation. Anticipate MRCP/ERCP Pain control No surgical intervention recommended Nurse practitioner note has been reviewed by physician. Signing provider agrees with the documented findings, assessment, and plan of care. Past Medical History Past Medical History: COPD, Diabetes Mellitus, GERD/Reflux, Hypertension History of Any Multi-Drug Resistant Organisms: MRSA Year Discovered:: 1999 MDRO Source:: face Past Surgical History: Appendectomy, Cholecystectomy Additional Past Surgical History / Comment(s): neck fusion bone from hip. back surgery d/t congenital defect. chain saw to face with sutures. COLONOSCOPY Past Anesthesia/Blood Transfusion Reactions: Previous Problems w/ Anesthesia Additional Past Anesthesia/Blood Transfusion Reaction / Comm: combative when coming out anesthesia Past Psychological History: Anxiety, Depression Smoking Status: Current every day smoker Past Alcohol Use History: None Reported Past Drug Use History: None Reported - Past Family History Mother Family Medical History: Deep Vein Thrombosis (DVT) Medications and Allergies Home Medications Medication Instructions Recorded Confirmed Type Albuterol Inhaler [Ventolin Hfa 1 - 2 puff INHALATION RT-QID PRN 12/21/19 02/05/20 History Inhaler] Gabapentin 800 mg PO QID 12/21/19 02/05/20 History Hydrocodone/Acetaminophen [[place] 1 tab PO TID 12/21/19 02/05/20 History 7.5-325] Ipratropium/Albuterol Sulfate 1 puff INHALATION RT-QID PRN 12/21/19 02/05/20 History [Combivent Respimat Inhaler] Omeprazole 20 mg PO DAILY 12/21/19 02/05/20 History PARoxetine HCL [Paxil] 40 mg PO DAILY 12/21/19 02/05/20 History amLODIPine [Norvasc] 10 mg PO DAILY 12/21/19 02/05/20 History buPROPion HCL [buPROPion HCL SR] 150 mg PO DAILY 12/21/19 02/05/20 History metFORMIN HCL [Glucophage] 500 mg PO BID 12/21/19 02/05/20 History Sucralfate [Carafate] 1 gm PO BID 01/20/20 02/05/20 History Allergies Allergy/AdvReac Type Severity Reaction Status Date / Time No Known Allergies Allergy Verified 02/05/20 09:58 Surgical - Exam Vital Signs Temp Pulse Resp BP Pulse Ox 97.5 F L 60 18 159/94 97 02/04/20 16:07 02/04/20 16:07 02/04/20 16:07 02/04/20 16:07 02/04/20 16:07 Results - Labs 02/05/20 06:13 02/05/20 06:13 Abnormal Lab Results - Last 24 Hours (Table) 02/04/20 02/04/20 02/05/20 Range/Units 16:56 16:56 06:13 WBC 13.2 H (3.8-10.6) k/uL Neutrophils # 9.6 H (1.3-7.7) k/uL Lymphocytes # 0.8 L (1.0-4.8) k/uL Sodium (137-145) mmol/L Glucose 119 H (74-99) mg/dL POC Glucose (mg/dL) (75-99) mg/dL Total Bilirubin 1.4 H (0.2-1.3) mg/dL Conjugated Bilirubin (0.0-0.3) mg/dL Unconjugated Bilirubin (0.0-1.1) mg/dL Delta Bilirubin (0.0-0.2) mg/dL AST 66 H (17-59) U/L ALT (4-49) U/L Alkaline Phosphatase (38-126) U/L 02/05/20 02/05/20 02/05/20 Range/Units 06:13 06:13 06:37 WBC (3.8-10.6) k/uL Neutrophils # (1.3-7.7) k/uL Lymphocytes # (1.0-4.8) k/uL Sodium 136 L (137-145) mmol/L Glucose 138 H (74-99) mg/dL POC Glucose (mg/dL) 146 H (75-99) mg/dL Total Bilirubin 3.9 H (0.2-1.3) mg/dL Conjugated Bilirubin 1.3 H (0.0-0.3) mg/dL Unconjugated Bilirubin 1.6 H (0.0-1.1) mg/dL Delta Bilirubin 1.0 H (0.0-0.2) mg/dL AST 683 H (17-59) U/L ALT 501 H (4-49) U/L Alkaline Phosphatase 183 H (38-126) U/L Diabetes panel 02/04/20 02/05/20 02/05/20 Range/Units 16:56 06:13 06:13 Sodium 137 136 L (137-145) mmol/L Potassium 4.1 4.6 (3.5-5.1) mmol/L Chloride 102 101 (98-107) mmol/L Carbon Dioxide 25 25 (22-30) mmol/L BUN 13 11 (9-20) mg/dL Creatinine 0.75 0.71 (0.66-1.25) mg/dL Glucose 119 H 138 H (74-99) mg/dL Calcium 9.8 9.4 (8.4-10.2) mg/dL AST 66 H 683 H (17-59) U/L ALT 30 501 H (4-49) U/L Alkaline Phosphatase 94 183 H (38-126) U/L Total Protein 7.4 7.0 (6.3-8.2) g/dL Albumin 4.9 4.5 (3.5-5.0) g/dL Calcium panel 02/04/20 02/05/20 02/05/20 Range/Units 16:56 06:13 06:13 Calcium 9.8 9.4 (8.4-10.2) mg/dL Albumin 4.9 4.5 (3.5-5.0) g/dL Pituitary panel 02/04/20 02/05/20 Range/Units 16:56 06:13 Sodium 137 136 L (137-145) mmol/L Potassium 4.1 4.6 (3.5-5.1) mmol/L Chloride 102 101 (98-107) mmol/L Carbon Dioxide 25 25 (22-30) mmol/L BUN 13 11 (9-20) mg/dL Creatinine 0.75 0.71 (0.66-1.25) mg/dL Glucose 119 H 138 H (74-99) mg/dL Calcium 9.8 9.4 (8.4-10.2) mg/dL Adrenal panel 02/04/20 02/05/20 02/05/20 Range/Units 16:56 06:13 06:13 Sodium 137 136 L (137-145) mmol/L Potassium 4.1 4.6 (3.5-5.1) mmol/L Chloride 102 101 (98-107) mmol/L Carbon Dioxide 25 25 (22-30) mmol/L BUN 13 11 (9-20) mg/dL Creatinine 0.75 0.71 (0.66-1.25) mg/dL Glucose 119 H 138 H (74-99) mg/dL Calcium 9.8 9.4 (8.4-10.2) mg/dL Total Bilirubin 1.4 H 3.9 H (0.2-1.3) mg/dL AST 66 H 683 H (17-59) U/L ALT 30 501 H (4-49) U/L Alkaline Phosphatase 94 183 H (38-126) U/L Total Protein 7.4 7.0 (6.3-8.2) g/dL Albumin 4.9 4.5 (3.5-5.0) g/dL
[2020-02-05] MEDS ORDERED: HYDROmorphone 1 MG/ML 1 ML SYRINGE IVP PRN (10:59)
[2020-02-05] MEDS: HYDROmorphone 1 MG/ML 1 ML SYRINGE IVP PRN ×4 (11:14→21:43)
[2020-02-05 11:44] LABS: Glucose,Whole Blood 143 mg/dL (75-99)
[2020-02-05] MEDS: HYDROcodone/APAP 7.5-325MG 1 EACH TAB PO SCH ×2 (15:55→20:56)
[2020-02-05 16:33] LABS: Glucose,Whole Blood 124 mg/dL (75-99)
[2020-02-05 20:29] LABS: Glucose,Whole Blood 132 mg/dL (75-99)
[2020-02-05] MEDS: SUCRALFATE 1 GM TAB PO SCH (20:56)
--- NOTE | 2020-02-05 22:31 | CONS ---
CONSULTATION DATE OF DICTATION: 02/05/2020 REASON FOR CONSULTATION: Epigastric pain and elevated LFTs. HISTORY OF PRESENT ILLNESS: The patient is a 54-year-old pleasant white male who presented to the emergency room with severe chest pain that started 2 days ago. The pain was extremely intense in the epigastric area and in the lower sternal area radiating to the right upper quadrant area. When he came to the emergency room, he was noted to have elevated LFTs and mild jaundice and hence we were consulted for possible ERCP. The patient had a similar episode in November of this year. He underwent gallbladder surgery for symptomatic gallstones. During this hospitalization, he did have a CTA of the chest done that was unremarkable. He also had CT of the abdomen and pelvis done, and there was a mention of a contracted gallbladder with calcified gallstones. There was no biliary ductal dilation noted. There was evidence of hepatomegaly seen. Labs done at the time of this admission to the hospital showed a bilirubin of 3.9, AST and ALT of 683 and 501, respectively. Alkaline phosphatase is 183. PAST MEDICAL HISTORY: Past medical history is significant for hypertension, obesity, diabetes mellitus, COPD. PAST SURGICAL HISTORY: Cholecystectomy, appendectomy. HOME MEDICATIONS: Albuterol, gabapentin, Paxil, Norvasc, Wellbutrin, Glucophage, Carafate, [place]. SOCIAL HISTORY: History of smoking. No alcohol use. ALLERGIES: NONE. REVIEW OF SYSTEMS: CARDIOPULMONARY: He does complain of chest pain but no shortness of breath. GENITOURINARY: No dysuria or hematuria. MUSCULOSKELETAL: Unremarkable. SKIN: Unremarkable. ENDOCRINE: Unremarkable. PSYCHIATRIC: Unremarkable. NEUROLOGY: Unremarkable. ENT/VISION: Unremarkable. CONSTITUTIONAL: No recent weight loss. No fever, chills, night sweats. PHYSICAL EXAMINATION: Blood pressure is 133/86, pulse rate 57 per minute and afebrile. HEENT examination unremarkable. Conjunctivae pink. Sclerae anicteric. Oral cavity no lesions. NECK: No JVD or lymph node enlargement. CHEST: Clear to auscultation. HEART: Regular rate and rhythm. ABDOMEN: Soft. Bowel sounds are positive. Tenderness in the epigastric area. EXTREMITIES: No pedal edema. SKIN: No rashes. NEUROLOGIC: Alert and oriented x3. No focal deficits. LABS: WBC 9.3, hemoglobin 16.9. Platelets normal. Basic metabolic panel within normal limits. Bilirubin 3.9. AST and ALT are 683 and 501, respectively. Alkaline phosphatase 183. IMPRESSION: This is a patient who presented with acute onset of severe epigastric and chest pain that started 2 days ago. The pain continued to progressively get worse, radiating to the right upper quadrant area. Noted to have elevated serum transaminases with a bilirubin of 3.9, almost common bile duct stone. He is status post gallbladder surgery 2 months ago for symptomatic gallstones. Most likely we are dealing with choledocholithiasis. RECOMMENDATIONS: I had a lengthy discussion with the patient regarding proceeding with ERCP. He understands the risks, benefits and complications of the procedure. He will be scheduled for ERCP tomorrow morning. Thank you for this consultation. CASANDRA / MAULIKN: [id number] /
[2020-02-06] MEDS: HYDROmorphone 1 MG/ML 1 ML SYRINGE IVP PRN ×2 (01:04→04:07)
[2020-02-06] MEDS ORDERED: INDOMETHACIN 50MG SUPPOSITORY RECTAL ONE ×2 (06:00→07:30)
[2020-02-06] MEDS ORDERED: LEVOFLOXACIN 500MG-D5W PMX 500 MG in DEXTROSE/WATER 1 100ML.BAG IVPB SCH ×2 (06:00→07:00)
[2020-02-06 07:06] LABS: Glucose,Whole Blood 115 mg/dL (75-99)
[2020-02-06] MEDS ORDERED: PROPOFOL 10 MG/ML 20 ML VIAL IV ONE (07:27)
[2020-02-06] MEDS ORDERED: KETAMINE 10 MG/ML 20 ML VIAL ONE (07:27)
[2020-02-06] MEDS ORDERED: SUCCINYLCHOLINE CHLORIDE 100 MG/5 ML SYR IV ONE (07:27)
[2020-02-06] MEDS ORDERED: MIDAZOLAM 2 MG/2 ML VIAL ONE (07:27)
[2020-02-06] MEDS ORDERED: GLYCOPYRROLATE 0.2 MG/ML 2 ML VIAL ONE (07:27)
[2020-02-06] MEDS ORDERED: fentaNYL (PF) 50 MCG/ML 2 ML AMP ONE (07:27)
[2020-02-06] MEDS ORDERED: IOPAMIDOL-300 50ML BTL MISCELLANE ONE (07:50)
--- NOTE | 2020-02-06 08:20 | P.PCN ---
Date of Procedure: 02/06/20 Procedure(s) Performed: Brief history: Patient is a 54 year-old pleasant white male scheduled for an ERCP as part of evaluation of abdominal pain and elevated serum transaminases for the last 2 days' duration. he had gotten surgery for symptomatic gallstones in November of this year. Since then he has been having intermittent episodes of epigastric pain. History had severe low sternal chest pain and epigastric pain radiates to the right upper quadrant area and came into the emergency room and was noted to have elevated LFTs and mild jaundice with a bilirubin of 3.1 g/dL. Because of the clinical suspicion for retained common bile duct stone he scheduled for an ERCP today. Procedure performed: ERCP with biliarysphincterotomy, attempted balloon stone extraction, CBD stent placement Preoperative diagnoses: Epigastric pain/low sternal chest pain and elevated LFTs and jaundice IV sedation per anesthesia: Procedure: After informed consent was obtained from the patient and after the risks benefits and complications including bleeding perforation and pancreatitis explained in detail the patient was brought into the endoscopy unit. The patient was placed in prone position and IV conscious sedation was administered by anesthesia under continuous monitoring. The Olympus side-viewing duode noscope was then inserted into the mouth and esophagus intubated without any difficulty. The scope was gradually advanced into the stomach and duodenum. The major papilla was identified without any difficulty. initial cannulation resulted in opacification of the common bile duct. It appeared dilated measuring 1.5 cm in diameter. There was a almost oblong shaped 1.5 cm filling defect noted in the proximal CBD. There was intrahepatic biliary ductal dilation noted. At this time the catheter was exchanged over a guidewire and a biliary sphincterotome was passed over the guidewire into the common bile duct. A biliary sphincterotomy was performed at 12 o'clock position and was extended to the maximum length of 1 cm. Following this an 11 mm balloon was passed over the guidewire into the proximal CBD and gently withdrawn and despite multiple attempts the CBD stone could not be extracted. After trying this for 20 minutes I decided to place and CBD stent to ensure biliary drainage. Or 7-[place] 5 cm pigtail stent was placed into the common bile duct and the patient tolerated the procedure well. The pancreatic duct was intentionally not cannulated during the entire procedure. Impression: Dilated common bile duct with a 1.5 cm oblong filling defect in the proximal CBD, status post biliary sphincterotomy, attempted CBD stone extraction but unsuccessful followed by CBD stent placement as described above Pancreatic duct intentionally not cannulated Recommendations: The findings of this examination were discussed with the patient.he'll be started on a clear liquid diet. Repeat labs in the morning. If he remains stable he can be discharged home today or tomorrow. He will also be started on a Actigall 250 mg 3 times daily. Will plan a repeat ERCP in 2-3 months for stone extraction.
[2020-02-06] MEDS ORDERED: IV FLUID CONTINUATION 250 ML IV ONE (08:31)
--- NOTE | 2020-02-06 08:43 | FL ---
EXAMINATION TYPE: FL ERCP biliary duct only DATE OF EXAM: 02/06/2020 CLINICAL HISTORY: Fluoroscopic documentation during ERCP TECHNIQUE: Fluoroscopy. COMPARISON: None. FINDINGS: Fluoroscopic guidance was provided during procedure performed by Dr. Rausch. A total of 50 seconds of fluoroscopic time was utilized during the procedure and 5 spot images was acquired during ERCP. IMPRESSION: As Above.
[2020-02-06] MEDS ORDERED: PARoxetine 20 MG TAB PO SCH (09:00)
[2020-02-06 09:39] VITALS: BP 164/77; PULSE 60; RESP 18; TEMP 98.1
[2020-02-06] MEDS: amLODIPine 10 MG TAB PO SCH (09:54)
[2020-02-06] MEDS: HYDROcodone/APAP 7.5-325MG 1 EACH TAB PO SCH (09:54)
[2020-02-06] MEDS: SUCRALFATE 1 GM TAB PO SCH (09:54)
[2020-02-06] MEDS: PANTOPRAZOLE 40 MG TABLET PO SCH (09:54)
[2020-02-06] MEDS: buPROPion SR 150 MG TABLET.ER PO SCH (09:54)
[2020-02-06] MEDS: GABAPENTIN 400 MG CAP PO SCH (09:54)
[2020-02-06 10:01] LABS: Basophils % (A) 1 %; Eosinophils # (A) 0.2 k/uL (0-0.7); Eosinophils % (A) 3 %; HCT 48.9 % (39.0-53.0); Lymphocytes # (A) 0.7 k/uL (1.0-4.8); Lymphocytes % (A) 12 %; MCH 31.2 pg (25.0-35.0); MCHC 32.8 g/dL (31.0-37.0); MCV 95.3 fL (80.0-100.0); Mean Platelet Volume 6.9; Monocytes # (A) 0.5 k/uL (0-1.0); Monocytes % (A) 7 %; Neutrophils # (A) 4.8 k/uL (1.3-7.7); Neutrophils % (A) 76 %; Platelet Count 292 k/uL (150-450); RBC 5.14 m/uL (4.30-5.90); RDW 13.6 % (11.5-15.5); WBC 6.3 k/uL (3.8-10.6)
[2020-02-06 10:13] LABS: AST 708 U/L (17-59); African American GFR (CKD) >90 (>60 ml/min/1.73 sqM); Albumin 4.6 g/dL (3.5-5.0); Alkaline Phosphatase 296 U/L (38-126); Anion Gap 8 mmol/L; Blood Urea Nitrogen 16 mg/dL (9-20); Calcium 9.4 mg/dL (8.4-10.2); Carbon Dioxide 29 mmol/L (22-30); Chloride 100 mmol/L (98-107); Glucose 137 mg/dL (74-99); Non-African American GFR(CKD) 90 (>60 ml/min/1.73 sqM); Potassium 4.4 mmol/L (3.5-5.1); Sodium 137 mmol/L (137-145); Total Protein 7.1 g/dL (6.3-8.2)
[2020-02-06 11:15] LABS: ALT 1007 U/L (4-49)
[2020-02-06] MEDS ORDERED: URSODIOL 300 MG CAP PO SCH (12:30)
--- NOTE | 2020-02-06 13:57 | PN ---
PROGRESS NOTE CHIEF COMPLAINT: Choledocholithiasis. SUBJECTIVE: The patient is doing well after recent ERCP this morning. Denies pain. He is anxious to go home today. He has been cleared for discharge by GI. OBJECTIVE: Abdomen is soft, nondistended. Minimal upper abdominal tenderness. ASSESSMENT: Choledocholithiasis. PLAN: March discharge from surgical standpoint. Follow up with GI and Dr. Macedo post discharge. MMODL / IJN: [id number] /
== END 2020-02-06 11:14 ==
LOC: EC 16:04 → 1SOBS 19:42
PROVIDERS: ADMIT Family Medicine; ATTEND Family Medicine
DX: K80.70 Calculus of gallbladder and bile duct without cholecystitis without obstruction (principal); R07.89 Other chest pain; R00.1 Bradycardia, unspecified; J44.9 Chronic obstructive pulmonary disease, unspecified; E11.9 Type 2 diabetes mellitus without complications; K21.9 Gastro-esophageal reflux disease without esophagitis; I10 Essential (primary) hypertension; Z86.14 Personal history of Methicillin resistant Staphylococcus aureus infection; F41.9 Anxiety disorder, unspecified; F32.9 Major depressive disorder, single episode, unspecified; F17.200 Nicotine dependence, unspecified, uncomplicated; R16.0 Hepatomegaly, not elsewhere classified; R74.0 Nonspecific elevation of levels of transaminase and lactic acid dehydrogenase [LDH]; E80.6 Other disorders of bilirubin metabolism; Z90.49 Acquired absence of other specified parts of digestive tract; Z98.1 Arthrodesis status; Q89.9 Congenital malformation, unspecified; Z82.49 Family history of ischemic heart disease and other diseases of the circulatory system; Z79.84 Long term (current) use of oral hypoglycemic drugs; Z79.899 Other long term (current) drug therapy
CPT/HCPCS: 96376 ×2; 96374; 96375; 99285; 36415; 93005; 80053 ×2; 80048; 80076; 82150; 83690; 83735; 84484 ×2; 85025 ×3; 85610; 85730; 74328; 71275; 74176; 43264; 43274; G0378 ×3; J2250; J2270 ×2; S0106 ×2; J1956; J3010; J1170 ×3; J0330; J2704; Q9967 ×2; C2625 ×2; 43262

== ENCOUNTER → 2020-07-21 | Outpatient (CLI) | payer OTHER ==
--- NOTE | 2020-07-21 12:33 | XR ---
EXAMINATION TYPE: XR shoulder complete RT DATE OF EXAM: 07/21/2020 CLINICAL HISTORY: Pain. TECHNIQUE: Three views of the right shoulder are obtained. COMPARISON: None. FINDINGS: There is no acute fracture/dislocation evident in the right shoulder. [id number] shirley rowing of glenohumeral joint. Acromioclavicular joint is preserved. The visualized ribs are intact a nd unremarkable. IMPRESSION: As above.
--- NOTE | 2020-07-21 12:34 | XR ---
EXAMINATION TYPE: XR knee complete RT DATE OF EXAM: 07/21/2020 COMPARISON: NONE HISTORY: 54-year-old male giving out, M17.9, M75.81 TECHNIQUE: 3 views FINDINGS: Mild tricompartmental degenerative spurring. There may be mild joint space narrowing in the medial co mpartment. Limited assessment of joint effusion due to soft tissue superimposition. No acute fracture , subluxation, or dislocation. IMPRESSION: At least mild tricompartmental osteoarthrosis, greatest in the medial compartment. If instability/me chanical symptoms, MRI can be considered.
== END | disposition home or self-care (01) ==
LOC: RADXRMAIN 11:55
PROVIDERS: ATTEND Family Medicine
DX: M25.811 Other specified joint disorders, right shoulder (principal); M17.11 Unilateral primary osteoarthritis, right knee

== ENCOUNTER → 2021-01-28 | Outpatient (CLI) | payer OTHER ==
--- NOTE | 2021-01-29 12:04 | MR ---
MR right humerus within without contrast HISTORY: M 25.511, mass right deltoid Multiplanar multisequence and postcontrast images following 11.5 cc Gadavist IV. There is an overlyin g marker at the site of patient's palpable abnormality Correlation to plain film 01/16/2021 Patient body habitus and motion somewhat limits the exam. At the site of the overlying marker there i s underlying fat attenuation present. There is no discrete mass. Deltoid muscle show some underlying fatty replacement. Bone marrow signal within the humerus is within normal limits. No evident adenopat hy. IMPRESSION: Findings likely represent lipoma, correlate.
== END | disposition home or self-care (01) ==
LOC: RADMRIMAIN 12:33
PROVIDERS: ATTEND Orthopaedic Surgery
DX: M25.511 Pain in right shoulder (principal)
CPT/HCPCS: 73220; A9585

== ENCOUNTER → 2021-02-13 | Outpatient (CLI) | payer OTHER ==
--- NOTE | 2021-02-13 14:33 | MR ---
EXAMINATION TYPE: MR cervical spine wo con DATE OF EXAM: 02/13/2021 1:04 PM COMPARISON: NONE HISTORY: Neck pain going down arms into fingers x 1.5 years Multiplanar MultiSpin echo imaging of the cervical spine was performed. Comparison: none C2-C3: No evidence for degenerative disc disease. No disc bulge/herniation or protrusion. No Canal stenosis. Foramina are patent bilaterally. C3-C4: There is moderate decreased signal and loss of height. Moderate posterior disc bulge effaces t he ventral thecal sac and results in moderate central stenosis. C4-C5: There is moderate decreased signal and loss of height. Moderate posterior disc bulge effaces t he ventral thecal sac and results in severe central stenosis. There is increased signal within the ce rvical spinal cord suggesting compressive myelopathy. C5-C6: Postsurgical changes of the fusion with anterior cervical discectomy noted. Anterior fixation plate is in place. No evidence for recurrent or residual disease at this level. Normal-appearing alig nment. C6-C7: Postsurgical changes of the fusion with anterior cervical discectomy noted. Anterior fixation plate is in place. No evidence for recurrent or residual disease at this level. Normal-appearing alig nment. C7-T1: Mild to moderate degenerative disc disease with posterior disc bulge. Effacement ventral theca l sac. No evidence for disc herniation or central stenosis. No foraminal encroachment. Cervical segments are intact. There is normal alignment. Scattered ventral spondylosis identified. Craniovertebral junction relationships are within normal limits. IMPRESSION: 1. Moderate to severe central stenosis at C3-4 and C4-5 with changes of compressive myelopathy sugges sruthi. 2. Postsurgical changes of ACDF.
== END ==
LOC: RADMRIMAIN 10:41
PROVIDERS: ATTEND Orthopaedic Surgery
DX: M48.02 Spinal stenosis, cervical region (principal)
CPT/HCPCS: 72141

== ENCOUNTER → 2021-02-13 | Outpatient (CLI) | payer OTHER ==
--- NOTE | 2021-02-13 11:49 | CT ---
EXAMINATION TYPE: CT CervThoracic spine wo con DATE OF EXAM: 02/13/2021 COMPARISON: 10/10/2018 HISTORY: Right arm numbness. Neck and upper back pain. CT DLP: 1485 mGycm CONTRAST: None CT of the cervical spine and thoracic spine is performed in the axial plane at 2 mm thick sections. Reconstructed images in the coronal, and sagittal plane are reviewed on the computer. No acute fractures are evident. Cervical spine: Vertebral body alignment is normal. Post cervical fusion is present. There is diffuse disc space narrowing through the cervical spine. Vertebral body heights are preserved. No spinal canal stenosis is evident Uncovertebral joint hypertrophy is present C2-3 with moderate bilateral foraminal narrowing. Uncovert ebral joint hypertrophy is present on the left with severe foraminal narrowing at C3-4. Moderate narr owing is present on the right at C3-4. Uncovertebral joint hypertrophy with a possible minimal spondy lolisthesis is contributing to bilateral severe foraminal stenosis at C4-5. Mild bilateral foraminal narrowing is present C5-6 and more severe foraminal narrowing is present C6-7. Drastic spine: No spinal canal stenosis through the thoracic spine is evident. Vertebral body height s are preserved. Disc heights have diffuse disc space narrowing. Some anterior spondylosis may have s ome fusion within the mid thoracic spine. IMPRESSIONS: 1. Postsurgical changes cervical spine. 2. Foraminal stenosis due to uncovertebral joint hypertrophy through the cervical spine. 3. No spinal canal stenosis within the thoracic spine. Mild degenerative disc changes are present dif fusely within the thoracic spine
== END ==
LOC: RADCTMAIN 10:47
PROVIDERS: ATTEND Orthopaedic Surgery
DX: M47.814 Spondylosis without myelopathy or radiculopathy, thoracic region (principal); M99.71 Connective tissue and disc stenosis of intervertebral foramina of cervical region; Z98.1 Arthrodesis status
CPT/HCPCS: 72125; 72128

== ENCOUNTER 2021-02-16 10:59 | Emergency (ER) | payer OTHER ==
[2021-02-16 11:05] VITALS: BP 148/91; PULSE 60; RESP 18; TEMP 97.6
[2021-02-16] MEDS ORDERED: HYDROmorphone 0.5 MG/0.5 ML SYRINGE IM STA (11:31)
--- NOTE | 2021-02-16 11:38 | ED ---
General Adult HPI - General Chief complaint: Extremity Problem,Nontraumatic Stated complaint: Neck/arm pain Time Seen by Provider: 02/16/21 11:12 Source: patient Mode of arrival: ambulatory Limitations: no limitations - History of Present Illness Initial comments: 55-year-old male presenting today for chief complaint of chronic neck pain with right hand numbness. Patient states that his right hand has been numb for over a year he states he has chronic neck pain with a previous anterior approach cervical fusion. Patient states that he was told by Dr. Montelongo and his new orthopedic operations systems specialist that he would be another surgery he recently had imaging studies performed. Patient states he thought he could possibly expedite the surgery by coming to the emergency department today. He denies any weakness of the upper extremities he states his hand numbness is not changed. Patient denies a fall tract injury fevers chills or general malaise he denies a chest pain shortness of breath nausea vomiting jaw pain or additional complaints upon arrival patient appears well and nontoxic no acute distress - Related Data Home Medications Medication Instructions Recorded Confirmed Albuterol Inhaler (Mhu) [Ventolin 1 - 2 puff INHALATION RT-QID PRN 12/21/19 02/05/20 Hfa Inhaler] Gabapentin 800 mg PO QID 12/21/19 02/05/20 Hydrocodone/Acetaminophen [[place] 1 tab PO TID 12/21/19 02/05/20 7.5-325] Ipratropium/Albuterol Sulfate 1 puff INHALATION RT-QID PRN 12/21/19 02/05/20 [Combivent Respimat Inhaler] Omeprazole 20 mg PO DAILY 12/21/19 02/05/20 PARoxetine HCL [Paxil] 40 mg PO DAILY 12/21/19 02/05/20 amLODIPine [Norvasc] 10 mg PO DAILY 12/21/19 02/05/20 buPROPion HCL [buPROPion HCL SR] 150 mg PO DAILY 12/21/19 02/05/20 metFORMIN HCL [Glucophage] 500 mg PO BID 12/21/19 02/05/20 Sucralfate [Carafate] 1 gm PO BID 01/20/20 02/05/20 Allergies Allergy/AdvReac Type Severity Reaction Status Date / Time No Known Allergies Allergy Verified 02/16/21 11:05 Review of Systems ROS Statement: Those systems with pertinent positive or pertinent negative responses have been documented in the HPI. ROS Other: All systems not noted in ROS Statement are negative. Past Medical History Past Medical History: COPD, Diabetes Mellitus, GERD/Reflux, Hypertension History of Any Multi-Drug Resistant Organisms: MRSA Date of last positivie culture/infection: 1999 MDRO Source:: face Past Surgical History: Appendectomy, Cholecystectomy Additional Past Surgical History / Comment(s): neck fusion bone from hip. back surgery d/t congenital defect. chain saw to face with sutures. COLONOSCOPY Past Anesthesia/Blood Transfusion Reactions: Previous Problems w/ Anesthesia Additional Past Anesthesia/Blood Transfusion Reaction / Comment(s): combative when coming out anesthesia Past Psychological History: Anxiety, Depression Smoking Status: Current every day smoker Past Alcohol Use History: None Reported Past Drug Use History: Marijuana - Past Family History Mother Family Medical History: Deep Vein Thrombosis (DVT) General Exam - General Exam Comments Initial Comments: General: The patient is awake and alert, in no distress, and does not appear acutely ill. Eye: Pupils are equal, round and reactive to light, extra-ocular movements are intact. No nystagmus. There is normal conjunctiva bilaterally. No signs of icterus. Ears, nose, mouth and throat: There are moist mucous membranes and no oral lesions. Neck: The neck is supple, there is no tenderness or JVD. Scar right side of neck anteriorly. No midline pain. Cardiovascular: There is a regular rate and rhythm. No murmur, rub or gallop is appreciated. Respiratory: Lungs are clear to auscultation, respirations are non-labored, breath sounds are equal. No wheezes, stridor, rales, or rhonchi. Musculoskeletal: Normal ROM, no tenderness. Strength 5/5 of the UE b/l. Sensation intact of the UE exlcuding the right hand where it feels slightly less than the left. Radial pulses equal bilaterally 2+. Neurological: A&O x 3. CN II-XII intact grossly, There are no obvious motor or sensory deficits. Coordination appears grossly intact. Speech is normal. Skin: Skin is warm and dry and no rashes or lesions are noted. Psychiatric: Cooperative, appropriate mood & affect, normal judgment. Limitations: no limitations Course Vital Signs 02/16/21 11:02 Temperature 97.6 F Pulse Rate 60 Respiratory 18 Rate Blood Pressure 148/91 O2 Sat by Pulse 99 Oximetry Medical Decision Making - Medical Decision Making Neck pain no new changes this is chronic. Patient thought he might feel to expedite his surgery. Patient has no weakness or sensation deficit of the upper extremities that are new. Patient is to follow-up with his orthopedic spine surgeon and return for any worsening symptoms patient is agreeable and was discharged appearing well Disposition Clinical Impression: Chronic pain, Paresthesia and pain of both upper extremities Disposition: HOME SELF-CARE Condition: Good Instructions (If sedation given, give patient instructions): Chronic Neck Pain (DC) Additional Instructions: Please use medication as discussed. Please follow-up with Marlen Jeffrey as scheduled. Please return to emergency room if the symptoms increase or worsen or for any other concerns. Is patient prescribed a controlled substance at d/c from ED?: No Referrals: Deuce Brito MD [Primary Care Provider] - 1-2 days Time of Disposition: 11:37
== END 2021-02-16 12:12 | disposition home or self-care (01) ==
LOC: EC 10:59
DX: R20.2 Paresthesia of skin (principal); G89.29 Other chronic pain; M79.622 Pain in left upper arm; M79.621 Pain in right upper arm; J44.9 Chronic obstructive pulmonary disease, unspecified; E11.9 Type 2 diabetes mellitus without complications; K21.9 Gastro-esophageal reflux disease without esophagitis; I10 Essential (primary) hypertension; F17.210 Nicotine dependence, cigarettes, uncomplicated; Z79.84 Long term (current) use of oral hypoglycemic drugs; Z79.51 Long term (current) use of inhaled steroids
CPT/HCPCS: 99283; J1170

== ENCOUNTER → 2021-02-28 | Outpatient (CLI) | payer OTHER ==
[2021-02-28 11:48] LABS: Appearance,Urine Clear (Clear); Bilirubin,Urine Negative (Negative); Blood,Urine Negative (Negative); Color,Urine Yellow; Glucose,Urine (UA) Negative (Negative); Ketones,Urine Negative (Negative); Leukocyte Esterase,Urine Negative (Negative); Nitrite,Urine Negative (Negative); PH, Urine 5.5 (5.0-8.0); Protein,Urine Negative (Negative); Specific Gravity,Urine 1.018 (1.001-1.035); Urobilinogen,Urine <2.0 mg/dL (<2.0)
[2021-02-28 12:05] LABS: Basophils # (A) 0.1 k/uL (0-0.2); Basophils % (A) 1 %; Eosinophils # (A) 0.2 k/uL (0-0.7); Eosinophils % (A) 2 %; HCT 46.9 % (39.0-53.0); HGB 15.6 gm/dL (13.0-17.5); Lymphocytes # (A) 2.4 k/uL (1.0-4.8); Lymphocytes % (A) 24 %; MCH 31.5 pg (25.0-35.0); MCHC 33.3 g/dL (31.0-37.0); MCV 94.7 fL (80.0-100.0); Mean Platelet Volume 6.8; Monocytes # (A) 0.8 k/uL (0-1.0); Monocytes % (A) 8 %; Neutrophils # (A) 6.4 k/uL (1.3-7.7); Neutrophils % (A) 64 %; Platelet Count 369 k/uL (150-450); RBC 4.95 m/uL (4.30-5.90); RDW 14.1 % (11.5-15.5)
[2021-02-28 12:08] LABS: INR 0.9 (<1.2); Partial Thromboplastin Time 23.4 sec (22.0-30.0); Prothrombin Time 9.7 sec (9.0-12.0)
[2021-02-28 12:09] LABS: African American GFR (CKD) >90 (>60 ml/min/1.73 sqM); Anion Gap 11 mmol/L; Blood Urea Nitrogen 18 mg/dL (9-20); Carbon Dioxide 26 mmol/L (22-30); Chloride 102 mmol/L (98-107); Non-African American GFR(CKD) >90 (>60 ml/min/1.73 sqM); Potassium 4.2 mmol/L (3.5-5.1); Sodium 139 mmol/L (137-145)
== END | disposition home or self-care (01) ==
LOC: LABPAT 10:23
PROVIDERS: ATTEND Orthopaedic Surgery
DX: Z01.812 Encounter for preprocedural laboratory examination (principal); M47.12 Other spondylosis with myelopathy, cervical region; G95.9 Disease of spinal cord, unspecified
CPT/HCPCS: 36415; 80051; 81003; 82565; 84520; 85025; 85610; 85730; 87070

== ENCOUNTER 2021-03-07 05:40 | Inpatient (IN) | payer OTHER ==
[2021-03-01 10:54] VITALS: BMI 36.8
[~2021-03-07 05:40] MED LIST changes: +ACETAMINOPHEN TAB 500 MG TAB PO PRN; +DEXAMETHASONE SOD PHOSPHATE 4 MG/ML 1 ML VIAL IV ONE; +GABAPENTIN 300 MG CAP PO PRN; -LACTATED RINGERS 1,000 ML IV SCH; +MIDAZOLAM 2 MG/2 ML VIAL IV PRN; +ONDANSETRON 4 MG/2 ML VIAL IVP ONE; +TRANEXAMIC ACID 1,000 MG in SODIUM CHLORIDE 0.9% 100 ML IVPB PRN; +VANCOMYCIN 1,750 MG in SODIUM CHLORIDE 0.9% 500 ML 500 ML IVPB PRN
[2021-03-07 06:35] LABS: Glucose,Whole Blood 144 mg/dL (75-99)
[2021-03-07] MEDS: LACTATED RINGERS 1,000 ML IV SCH (06:41)
[2021-03-07] MEDS ORDERED: fentaNYL (PF) 50 MCG/ML 2 ML AMP IVP ONE (06:59)
--- NOTE | 2021-03-07 07:03 | P.HPOR ---
History of Present Illness H&P Date: 03/03/21 Chief Complaint: arm weakness, unsteady gait, neck pain this is a pleasant 55-year-old male who presents with complaints of cervical spine pain as well as upper extremity pain and weakness. The patient states that several years prior in [facility] where the patient was living he had a fusion of his cervical spine from C4 to C7. He states that he did well after surgery from this but over the past couple of years it has seemed to declined in nature. He continues to have pain in his neck as well as popping and clicking within his neck that hurt him. He has pain in his bilateral upper extremities that seems to be getting worse. He states weakness in his upper extremities right worse than left and he is right-handed so this affects him quite a bit. He denies any bowel or bladder issues he denies any perineal numbness or tingling he states no falls recently but he does feel somewhat unsteady on his feet.Patient returns for a follow up of his neck pain and MRI results of his cervical and thoracic spine. He notes significant pain. He is unable to move his neck without severe pain. He notes pain that radiates down both his arms. He is taking [place] 10mg three times daily and Gabapentin four times daily. Patient returns for a preoperative appointment for his cervical spine. 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 Patient had a previous C5-7 fusion. He takes Gabapentin and [place] for pain. Patient ambulates independently. He has proximal failure of C3-5 with severe stenosis, mylomalacia, myelopathy and pincer lesions at these levels. He continues to be unsteady on his feet, loosing his balance, falling and having difficulty with fine motor skills. He has weakness in his hands and shoulders as well. Denies any f/c/sob/cp/MCLEOD/n/v/vision changes at this time. Past Medical History Past Medical History: COPD, Diabetes Mellitus, GERD/Reflux, Hypertension, Musculoskeletal Disorder, Osteoarthritis (OA) Additional Past Medical History / Comment(s): DDD, spondylosis, ivy numbness down both arms to fingers History of Any Multi-Drug Resistant Organisms: MRSA Date of last positivie culture/infection: 1999 MDRO Source:: face Past Surgical History: Appendectomy, Back Surgery, Cholecystectomy, Orthopedic Surgery Additional Past Surgical History / Comment(s): neck fusion bone from hip. back surgery d/t congenital defect. chain saw to face with sutures. COLONOSCOPY Past Anesthesia/Blood Transfusion Reactions: Previous Problems w/ Anesthesia Additional Past Anesthesia/Blood Transfusion Reaction / Comment(s): combative when coming out anesthesia Smoking Status: Current every day smoker - Past Family History Mother Family Medical History: Deep Vein Thrombosis (DVT) Medications and Allergies Home Medications Medication Instructions Recorded Confirmed Type Albuterol Inhaler (Mhu) [Ventolin 1 - 2 puff INHALATION RT-QID PRN 12/21/19 03/07/21 History Hfa Inhaler] Gabapentin 800 mg PO QID 12/21/19 03/07/21 History Hydrocodone/Acetaminophen [[place] 1 tab PO TID 12/21/19 03/07/21 History 7.5-325] Ipratropium/Albuterol Sulfate 1 puff INHALATION RT-QID PRN 12/21/19 03/07/21 History [Combivent Respimat Inhaler] Omeprazole 20 mg PO DAILY 12/21/19 03/07/21 History PARoxetine HCL [Paxil] 40 mg PO DAILY 12/21/19 03/07/21 History amLODIPine [Norvasc] 10 mg PO DAILY 12/21/19 03/07/21 History buPROPion HCL [buPROPion HCL SR] 150 mg PO DAILY 12/21/19 03/07/21 History metFORMIN HCL [Glucophage] 500 mg PO BID 12/21/19 03/07/21 History methocarbamoL [Methocarbamol] 500 mg PO HS 03/01/21 03/07/21 History Allergies Allergy/AdvReac Type Severity Reaction Status Date / Time No Known Allergies Allergy Verified 03/01/21 10:31 Physical Examination Osteopathic Statement: *. No significant issues noted on an osteopathic structural exam other than those noted in the History and Physical/Consult. General: Awake, alert, appropriate for age, in no acute distress. HEENT: No unusual neck masses around region of lateral neck triangle, thyroid, supraclavicular groove Heart: Regular rate and rhythm, normal S1, S2 and no murmur/gallop. Lungs: Clear to auscultation bilaterally with no use of accessory muscles. Extremities: Skin warm and dry without acute lesions, coloration, temperature, skin intact, no tenderness or erythema Integument: Hairy patches: Absent Dorsal skin dimples: Absent Cafe au lait spots: Absent Surgical incisions: right-sided anterior neck incision well-healed Palpation: Please see Pain drawing on Intake sheet for further detail. Midline spinal tenderness: yes cervical E6 Paralumbar tenderness: No E6 Parathoracic tenderness: No E6 Buttocks tenderness: No E6 Special findings: posterior cervical spine tenderness. No tenderness anterior cervical spine POSTURAL and MUSCULO-SKELETAL EVALUATION: Coronal Balance: Neutral Recumbent testing: Patient is to lay flat on back Sagittal Balance: positive Shoulder Profile: [Level] Pelvic Girdle: [Level] Neck ROM: restricted secondary to pain and crepitance Lumbar ROM: Unrestricted Shoulder ROM: Symmetric in abduction, ER/IR Hip ROM: Symmetric in abduction, adduction, ER/IR Knee ROM: Symmetric and intact in Flexion / extension Hands: symmetrical some hyperthenar and thenar wasting Feet: symmetrical VASCULAR STATUS : LEFT RIGHT Wrist Pulses intact intact Pedal Pulses (Dors. pedis & post.tibialis) intact intact Color normal normal Edema Absent Absent NEUROLOGIC EXAMINATION: Mental Status: Awake and alert, fully oriented, with normal attention, concentration and memory, and fluent, appropriate speech. Cranial Nerves: I: Olfactory not tested. II: Visual acuity normal, no visual field deficit noted with confrontation. III,IV: Normal pupillary reflexes & intact extraocular movements without nystagmus. V,: Intact symmetrical facial sensation. VII: Intact symmetrical facial motor movement VIII: Hearing intact. IX,X: Intact gag, swallow, & normal voice. XI: Sternocleidomastoid, trapezius function intact. XII: Tongue midline with normal movements. L'hermitte's Sign: Negative / absent Spurling'Sign: positive on the right Cubital percussion test: Absent bilaterally. Luisa-Tinel sign - Carpal region: Absent bilaterally. Straight Leg Raising: Absent bilaterally. Crossed straight leg raise: negative O8 MOTOR EXAM (0-5/5, N/T) STRENGTH RIGHT LEFT Shoulder Abd (not part of the ROSY score) 4 4 Elbow Flexors 4 4 Elbow Extensor 4 4 Wrist Dorsiflexors 4 4 Finger Abductor 4 4 Mri Specialist 4 4 Hip Flexor (Not part of ROSY Motor score) 5 5 Knee Flexor 5 5 Knee Extensor 5 5 Ankle dorsiflexor 5 5 Ankle plantarflexion 5 5 Extensor hallucis 5 5 REFLEXES(0-4/2, NT) RIGHT LEFT Upper Extremities 2 2 Lower Extremities 2 2 Pathological Reflexes RIGHT LEFT Ramirez's Present Present Clonus Absent Absent negative Babinskis bilaterally Muscle appearance: symmetrical Rectal Tone:deferred Sensory system (0-4, N/T) Test type RU PAN RL LL Joint-Position 2 2 2 2 Vibration 2 2 2 2 Pain & LT sense 2 2 2 2 Dermatomal Deficit: C4 5 C4 5 none none Gait and Functional Evaluation: Ambulatory aids: Independent Romberg's test: Intact bilaterally Toe heel walk / heel-toe walk intact while maintaining satisfactory balance? No Squatting/straightening w/o assistance to a min of 60 degree knee flexion? No Single leg stance: Trendelenburg sign negative bilaterally Hand and finger dexterity intact bilaterally? No Disdiadochokinesis examination negative bilaterally? No Results XRAY: AP lateral flexion extension films along of the cervical spine obtained in the office today show postsurgical changes from C5 to C7 with good bony fusion and anterior plate fixation construct. The fusion appears to be in good position the hardware is in good position however there is some fairly severe adjacent segment disease at C4 5 C3 4 and C4 5.there is no instability noted at occipital cervical C1 2 joints however at C4 5 there is slight anterior listhesis with flexion. No other fractures or dislocations are noted. MRI of C spine shows post surgical changes from C5-7 with adjacent segment disease C3-5 with severes stenosis and myelomalacia at these levels with stenosis caudal as well. There is severe facet arthrosis noted as well. No fractures or dislocations. C0-1 and C1-[address] shows spondylosis with previous C5-7 fusion. No fractures or dislocation. - Labs Labs: Abnormal Lab Results - Last 24 Hours (Table) 03/07/21 Range/Units 06:30 POC Glucose (mg/dL) 144 H (75-99) mg/dL Assessment and Plan Assessment: 1. s/p C5-7 ACDF with adjacent segment disease 2. Cervical spondylitic myelopathy 3. RUE weakness Plan: Kvng Molina is a 55 year old male presenting for evaluation of sudden onset of b/l UE pain, wekness difficulty with ambulation as well as falling. It was my pleasure to have seen and examined Mr. Molina. In our visit today we have had a chance to go over subjective complaints, physical examination findings and treatments, including the natural course history without intervention and various interventional options. The imaging demonstrates severe stenosis of C3-5 with myelomalacia, pincer type lesions, spondylosis and s/o C5-7 ACDF . On physical exam, Mr. Molina demonstrates weakness in b/l UE with dermatomal deficits of C4,5,6 as well as unsteady gait and radiculopathy . I explained to the patient that as his condition progresses it could cause increased weakness, paralysis and continued or permanent issues . At this time, based on the patients imaging and physical exam, I recommend surgery in the form or a: revision fusion C3-5 with possible MIGUEL and C2-T2 decompression fusion . I discussed the risk and benefits of this procedure at length with Mr. Molina. The patient and his spouse/partneragreed to consider pursuing the procedure mentioned above. Plan: 1. Revision fusion C3-7 with possible removal of hardware C5-7 with ACDF at C3- 5 as first stage. Second stage: C2-T2 decompression and fusion. 2. Follow up with PCP for surgical clearance 3. Review of surgical risks and benefits as well as an educational packet on the proposed surgical procedure. Risks: All surgical procedures come with inherent risks, including those related to positioning, anesthesia, intraoperative findings, and postoperative complications. It is important to understand that surgery does not come with any guarantee of a successful outcome as complications and adverse events are always possible. The patient was given a handout in office today discussing the surgical procedure and risks associated with the intervention, both of which were discussed with the patient. These risks include but are not limited to the following: ? Experiencing same, different or even worse symptoms in back, neck, arms, or legs compared to before surgery. ? Requiring further surgery or other forms of treatment presently or at some time in the future at same or other levels of the intended spine surgery. ? On an extreme but fortunately relatively rare basis severe complication such as blindness, stroke, heart attack, temporary and/or permanent nerve injury, paralysis, coma, or may occur, sometimes without known explanation. ? Surgical complications may include but are not limited to risk of infection, fluid accumulation in the surgical dissection site, including a seroma or hematoma, that requires additional surgery, wound drainage, bleeding, new numbness or weakness, vision changes/loss, spinal fluid leakage, non-healing and/or infected incision, headaches, difficulty or inability to swallow, hoarseness, hemopneumothorax, pneumothorax, impotence, retrograde ejaculation, vaginal dryness; injury to nerves, spinal cord, blood vessels, lymphatics or other vital organs (i.e., bowel injury, injury to the great vessels); heterotopic bone formation; complications related to the hardware such as screws, rods, cages including misplaced hardware, device failure, instrumentation at the wrong spine level, hardware fracture/breakage, or hardware loosening; vertebral failure of the spinal column above or below the newly placed hardware; retained surgical instrumentations or devices and the need for further surgery. ? Medical risks of the planned spine surgery include but are not limited to generalized Infections to the whole body or local areas outside of the surgical site (sepsis), heart attack, bleeding, anaphylaxis, meningitis, seizure, epilepsy, hearing loss, burn barnes, laceration of the head or other areas of the body, bruising, hypersensitivity of the skin, bladder over distension; allergic reaction; shoulder injury related to positioning; fat, blood and air clots to other areas of the body like heart, lungs, brain; failure of internal organs such as lungs, kidneys, liver and excessive bleeding. If blood transfusions are necessary, note that transfusions may cause intolerance reactions such as anaphylaxis or other complex reactions. Despite best efforts, the results of spine surgery might not heal in terms of bone, soft tissues such as skin, fascia, ligaments, and joints. Additionally, in order to achieve best possible results, spine surgery may be carried out beyond the initially planned levels and involve decompression, fusion including insertion of hardware at levels other than the original intended area of surgical interest change some portions of the procedure in order to ensure the best possible outcomes. With spine surgery and spinal fusion, there are different off label uses of in strumentation (devices, implants and hardware) as well as biological substances (bone morphogenic proteins, demineralized bone matrix) as well as using extra bone from allograft sources (i.e. cadaver bone) or autograft (iliac crest bone, ribs, or the spine itself). The patient has been given information about these practices and their inherent risks and benefits. [facility] Physician Assistants are medically trained surgical providers who function in the outpatient, inpatient, and operating room setting under the direct supervision of the attending surgeon.They assist in the ope rating room with direct supervision of the attending surgeons. The patient has had a chance to review all the listed information, has been given print outs detailing this information, and has had all his/her questions answered to their satisfaction. It was my pleasure to have seen and examined Mr. Molina. In our visit today we have had a chance to go over my understanding of our patient's current condition, the natural course history without intervention and various interventional options. Questions were invited and answered, and the patient wishes to proceed as outlined above. I have seen and examined the patient for 25 minutes and we have spent more than 50% of the time in repeat and detailed counseling about the patient's condition, its natural course history with out and as much as can be predicted with surgery and re-review of various surgical treatment options. In conclusion,Mr. Molina and his spouse/partner requested we proceed with the above suggested surgery and are willing to accept risks and limitations of the suggested surgery as nature of the disease process and our best attempts at treatment for the condition. Thank you again for allowing us to be part of your patient's care. Please don't hesitate to contact me if you have any further questions. Signed and authenticated by: Kenny Azevedo [facility] [address], [address] [address] Time with Patient: Greater than 30
[2021-03-07] MEDS ORDERED: HEPARIN SODIUM,PORCINE 10,000 UNIT/ML 1 ML VIAL ONE (07:27)
[2021-03-07] MEDS ORDERED: FUROSEMIDE 10 MG/ML 2 ML VIAL ONE (07:27)
[2021-03-07] MEDS ORDERED: DEXAMETHASONE SOD PHOSPHATE 10 MG/ML 1 ML VIAL ONE (07:27)
[2021-03-07] MEDS ORDERED: SODIUM CHLORIDE 0.9% IRRIG 1,000 ML BTL IRRIGATION ONE (07:27)
[2021-03-07] MEDS ORDERED: GLYCOPYRROLATE 0.2 MG/ML 2 ML VIAL ONE (07:27)
[2021-03-07] MEDS ORDERED: SUCCINYLCHOLINE CHLORIDE VIAL 200 MG/10 ML VIAL IV ONE (07:27)
[2021-03-07] MEDS ORDERED: hydrALAZINE HCL 20 MG/ML 1 ML VIAL ONE (07:27)
[2021-03-07] MEDS ORDERED: TRANEXAMIC ACID 1,000 MG/10 ML VIAL ONE (07:27)
[2021-03-07] MEDS ORDERED: PROPOFOL 10 MG/ML 20 ML VIAL IV ONE (07:27)
[2021-03-07] MEDS ORDERED: fentaNYL (PF) 50 MCG/ML 2 ML AMP ONE (07:27)
[2021-03-07] MEDS ORDERED: ePHEDrine SULFATE/0.9% NACL/PF 50 MG/5 ML SYRINGE IV ONE (07:27)
[2021-03-07] MEDS ORDERED: LIDOCAINE 1% INJ 10MG/ML (20 ML MDV) ONE (07:27)
[2021-03-07] MEDS ORDERED: KETAMINE 10 MG/ML 20 ML VIAL ONE (07:27)
[2021-03-07] MEDS ORDERED: SODIUM CHLORIDE 0.9% 250 ML BAG ONE (07:27)
[2021-03-07] MEDS ORDERED: ROCURONIUM 10 MG/ML (5 ML VIAL) IV ONE (07:27)
[2021-03-07] MEDS ORDERED: IV FLUID CONTINUATION 1,000 ML IV ONE (07:32)
[2021-03-07] MEDS ORDERED: TRANEXAMIC ACID 2,000 MG in SODIUM CHLORIDE 0.9% 100 ML IVPB PRN (08:00)
[2021-03-07] MEDS ORDERED: BUPIVACAINE (PF) 0.25% 30 ML VIAL SQ ONE (09:03)
[2021-03-07] MEDS ORDERED: GELATIN SPONGE,ABSORB (LARGE) 1 EACH SPONGE TOPICAL ONE (09:03)
[2021-03-07] MEDS ORDERED: THROMBIN (BOVINE) 5,000 UNIT VIAL TOPICAL ONE (09:04)
--- NOTE | 2021-03-07 10:55 | P.ANPRN ---
Procedure Note - Anesthesia - Invasive Line Left Central Line Time Out Performed: Yes Date of Procedure: 03/07/21 Time of Procedure: 07:01 Location of Patient: PreOp Preparation: Sterile Prep, Sterile Dressing Ultrasound Used: No Purpose - Visualization and Identification of Vasculature: No Narrative: Central line placement per sterile protocol utilized. 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
[2021-03-07] MEDS ORDERED: LACTATED RINGERS 1,000 ML IV ONE ×3 (11:57→15:26)
[2021-03-07] MEDS ORDERED: LIDOCAINE 1% INJ 10MG/ML (20 ML MDV) SQ ONE (12:23)
--- NOTE | 2021-03-07 12:32 | P.ANPRN ---
Procedure Note - Anesthesia - Invasive Line Left Arterial Line Time Out Performed: Yes Date of Procedure: 03/07/21 Time of Procedure: 07:15 Location of Patient: PreOp Preparation: Sterile Prep, Sterile Dressing Arterial Line Location: Radial Ultrasound Used: No Purpose - Visualization and Identification of Vasculature: No Narrative: Central line placement per sterile protocol utilized. Arterial line used for intraop monitering ,for hemodynamic monitering
--- NOTE | 2021-03-07 14:44 | XR ---
EXAMINATION TYPE: XR cervical spine 1V, FL guidance operating room DATE OF EXAM: 03/07/2021 CLINICAL HISTORY: Cervical fusion TECHNIQUE: Fluoroscopy. COMPARISON: None. FINDINGS: Fluoroscopic guidance was provided during procedure performed by orthopedic surgery. A to niranjan of 100 seconds of fluoroscopic time was utilized during the procedure and 8 spot images was acqui red. IMPRESSION: As Above.
[2021-03-07] MEDS ORDERED: VANCOMYCIN 1,000 MG VIAL MISCELLANE ONE (14:55)
[2021-03-07] MEDS ORDERED: MAGNESIUM HYDROXIDE 2,400 MG/10 ML CUP PO PRN (16:03)
[2021-03-07] MEDS ORDERED: ONDANSETRON 4 MG/2 ML VIAL IVP PRN (16:03)
[2021-03-07] MEDS ORDERED: SENNOSIDES-DOCUSATE SODIUM 1 EACH TAB PO PRN (16:03)
[2021-03-07] MEDS ORDERED: hydrALAZINE HCL 20 MG/ML 1 ML VIAL IVP ONE (16:31)
[2021-03-07] MEDS: HYDROmorphone 0.5 MG/0.5 ML SYRINGE IVP PRN ×4 (17:18→17:37)
--- NOTE | 2021-03-07 17:58 | XR ---
EXAMINATION TYPE: XR chest 1V DATE OF EXAM: 03/07/2021 COMPARISON: NONE HISTORY: Line placement TECHNIQUE: Single view FINDINGS: There is no heart failure nor confluent pneumonic infiltrate. There is elevated right diaph ragm. There is slight increased interstitial markings. There is left jugular catheter with tip in the superior vena cava. No pneumothorax. IMPRESSION: Catheter in good position. There is some atelectasis right lung base. Increased interstit ial markings.
[2021-03-07 18:27] LABS: Glucose,Whole Blood 203 mg/dL (75-99)
[2021-03-07] MEDS: ACETAMINOPHEN TAB 500 MG TAB PO SCH (19:48)
[2021-03-07] MEDS: HYDROmorphone 1 MG/ML 1 ML SYRINGE IVP PRN ×2 (20:00→23:33)
[2021-03-07] MEDS ORDERED: VANCOMYCIN IV PER PHARMACY 1 EACH MISC MISCELLANE SCH (21:15)
[2021-03-07] MEDS: VANCOMYCIN 1,750 MG in SODIUM CHLORIDE 0.9% 500 ML 500 ML IVPB SCH (23:29)
[2021-03-07] MEDS: CYCLOBENZAPRINE 10 MG TAB PO PRN (23:33)
--- NOTE | 2021-03-08 00:16 | P.PN ---
Progress Note - Text Progress Note Date: 03/08/21 SPoke to nursing over the phone. Pt not maintaining sats >90% at this time with bipap and having wheezing. No overt anterior swelling noted by nursing. Drains in place. Minimal output. Pt was extubated post op and sent to ICU for monitoring. Typically, this pt would be intubated overnight after long surgery. Obtaining AP/lat xray to look for tracheal deviation but pt has hx of smoking as well and desaturation events seem to be related to global issues not necessarily anterior external swelling. Will view films. If pt needs reintubation would recommend. Would also suggest breathing tretments. Will follow.
[2021-03-08] MEDS: ACETAMINOPHEN TAB 500 MG TAB PO SCH ×5 (00:49→23:38)
--- NOTE | 2021-03-08 01:11 | XR ---
EXAM: XR Soft Tissue Neck CLINICAL HISTORY: ITS.REASON XR Reason: swelling TECHNIQUE: Frontal and lateral views of the soft tissues of the neck. COMPARISON: No relevant prior studies available. FINDINGS: Airway: Unremarkable. No abnormal narrowing. Retropharyngeal space: Surgical drains over the anterior and posterior neck. There is a small amount of gas in the retropharyngeal space, not unexpected postsurgery. Bones/joints: There is extensive surgical instrumentation throughout the cervical spine consisting of pedicle screws attached the posterior lateral rods spanning C2 through the upper thoracic spine. There are also anterior corpectomy, discectomy, and fusion plates at C3-C7. Soft tissues: Unremarkable. No abnormal soft tissue prominence. Normal epiglottis. Tubes, lines and devices: Left internal jugular vein central venous catheter extending below the inferior edge of the film. IMPRESSION: 1. There is extensive surgical instrumentation throughout the cervical spine consisting of pedicle screws attached the posterior lateral rods spanning C2 through the upper thoracic spine. There are also anterior corpectomy, discectomy, and fusion plates at C3-C7. 2. Surgical drains over the anterior and posterior neck. There is a small amount of gas in the retropharyngeal space, not unexpected postsurgery.
[2021-03-08] MEDS: DEXAMETHASONE SOD PHOSPHATE 4 MG/ML 1 ML VIAL IV SCH ×7 (02:42→23:38)
[2021-03-08] MEDS: HYDROmorphone 1 MG/ML 1 ML SYRINGE IVP PRN ×5 (02:54→16:10)
[2021-03-08 03:50] LABS: HCT 46.3 % (39.0-53.0); HGB 14.9 gm/dL (13.0-17.5); MCH 30.9 pg (25.0-35.0); MCHC 32.1 g/dL (31.0-37.0); MCV 96.2 fL (80.0-100.0); Mean Platelet Volume 6.9; Platelet Count 298 k/uL (150-450); RBC 4.82 m/uL (4.30-5.90); RDW 14.5 % (11.5-15.5); WBC 29.5 k/uL (3.8-10.6)
[2021-03-08 04:19] LABS: African American GFR (CKD) >90 (>60 ml/min/1.73 sqM); Anion Gap 11 mmol/L; Blood Urea Nitrogen 18 mg/dL (9-20); Carbon Dioxide 25 mmol/L (22-30); Chloride 102 mmol/L (98-107); Glucose 154 mg/dL (74-99); Non-African American GFR(CKD) >90 (>60 ml/min/1.73 sqM); Potassium 4.3 mmol/L (3.5-5.1); Sodium 138 mmol/L (137-145)
[2021-03-08 05:36] LABS: Glucose,Whole Blood 167 mg/dL (75-99)
[2021-03-08 05:41] LABS: ABG HCO3 28 mmol/L (21-25); ABG PCO2 43 mmHg (35-45); ABG PH 7.43 (7.35-7.45); ABG TCO2 30 mmol/L (19-24); Allen Test Performed? Yes
[2021-03-08 05:44] LABS: ABG PO2 55 mmHg (83-108)
--- NOTE | 2021-03-08 06:03 | P.CNPUL ---
History of Present Illness Consult date: 03/08/21 Reason for consult: dyspnea, COPD, hypoxemia History of present illness: A 65-year-old male patient underwent a multilevel cervical spine fusion C3 through C5 anteriorly and C2 through T2 posteriorly with decompression and the patient is currently postop day #1. Immediately following surgery, the patient was extubated and was brought up today intensive care unit. Postop, there was concern for some increased shortness of breath and poor oxygenation. For that reason the patient was In the intensive care unit overnight. He was desaturatin g and his pulse ox was as low as 89%. He was given Decadron and he was also placed on a BiPAP for several hours and currently is on oxygen at 6 L per minute nasal cannula. The x-ray of the neck was also done that showed surgical instrumentation throughout the cervical spine with hardware. Surgical drains were over the anterior and the posterior neck. There was small amount of gas in the retropharyngeal space and there was no evidence of any upper airway obstruction. Clinically, the patient does not have any stridor. A repeat chest x-ray was done today and shows smaller lung volumes. The patient's chronic elevation of the right hemidiaphragm. There is increased interstitial markings in the lung bases along with some atelectasis and some possible early infiltration of the left lower lobe. The patient's white cell count is at 29.5 and hemoglobin 14.9. Rest of the blood work is within normal limits. He is known to have COPD and is also known to have obstructive sleep apnea and the patient does not utilize any form of CPAP therapy on outpatient basis. His active problems forpain may need the surgical site and the patient is receiving a combination of dilated 1 mg every 3 hours, Flexeril and oxycodone 10 mg every 6 hours on a when necessary basis. Antibiotic prophylaxis with vancomycin. He is moving all 4 extremities without any limitation. He is admitted diaphoretic and sweaty because of his ongoing pain. No focal neurological deficit. No altered mentation. Review of Systems Constitutional: Reports fatigue, Reports weakness Eyes: denies as per HPI, denies blurred vision, denies bulging eye, denies decreased vision, denies diplopia, denies discharge, denies dry eye, denies irritation, denies itching, denies pain, denies photophobia, denies loss of peripheral vision, denies loss of vision, denies tunnel vision/blind spots Ears: deny: decreased hearing, ear discharge, earache, tinnitus Ears, nose, mouth and throat: Reports as per HPI Cardiovascular: Reports dyspnea on exertion Respiratory: Reports cough, Reports dyspnea Gastrointestinal: Reports as per HPI Genitourinary: Reports as per HPI Musculoskeletal: Reports limitation of motion, Reports neck pain, Reports neck stiffness Musculoskeletal: absent: ankle pain, ankle stiffness, ankle swelling, as per HPI, elbow pain, elbow stiffness, elbow swelling, foot pain, foot stiffness, foot swelling, hand pain, hand stiffness, hand swelling, hip pain, hip stiffness, hip swelling, knee pain, knee stiffness, knee swelling, shoulder pain, shoulder stiffness, shoulder swelling, wrist pain, wrist stiffness, wrist swelling Integumentary: Reports as per HPI Neurological: Reports as per HPI, Reports weakness Psychiatric: Reports as per HPI Endocrine: Reports as per HPI, Reports fatigue Hematologic/Lymphatic: Reports as per HPI Allergic/Immunologic: Reports as per HPI Past Medical History Past Medical History: COPD, Diabetes Mellitus, GERD/Reflux, Hypertension, Musculoskeletal Disorder, Osteoarthritis (OA) Additional Past Medical History / Comment(s): DDD, spondylosis, ivy numbness down both arms to fingers History of Any Multi-Drug Resistant Organisms: MRSA Date of last positivie culture/infection: 1999 MDRO Source:: face Past Surgical History: Appendectomy, Back Surgery, Cholecystectomy, Orthopedic Surgery Additional Past Surgical History / Comment(s): neck fusion bone from hip. back surgery d/t congenital defect. chain saw to face with sutures. COLONOSCOPY Past Anesthesia/Blood Transfusion Reactions: Previous Problems w/ Anesthesia Additional Past Anesthesia/Blood Transfusion Reaction / Comment(s): combative when coming out anesthesia Smoking Status: Current every day smoker - Past Family History Mother Family Medical History: Deep Vein Thrombosis (DVT) Medications and Allergies Home Medications Medication Instructions Recorded Confirmed Type Albuterol Inhaler (Mhu) [Ventolin 1 - 2 puff INHALATION RT-QID PRN 12/21/19 03/07/21 History Hfa Inhaler] Gabapentin 800 mg PO QID 12/21/19 03/07/21 History Hydrocodone/Acetaminophen [[facility] [place] 1 tab PO TID 12/21/19 03/07/21 History 7.5-325] Ipratropium/Albuterol Sulfate 1 puff INHALATION RT-QID PRN 12/21/19 03/07/21 History [Combivent Respimat Inhaler] Omeprazole 20 mg PO DAILY 12/21/19 03/07/21 History PARoxetine HCL [Paxil] 40 mg PO DAILY 12/21/19 03/07/21 History amLODIPine [Norvasc] 10 mg PO DAILY 12/21/19 03/07/21 History buPROPion HCL [buPROPion HCL SR] 150 mg PO DAILY 12/21/19 03/07/21 History metFORMIN HCL [Glucophage] 500 mg PO BID 12/21/19 03/07/21 History methocarbamoL [Methocarbamol] 500 mg PO HS 03/01/21 03/07/21 History Allergies Allergy/AdvReac Type Severity Reaction Status Date / Time No Known Allergies Allergy Verified 03/01/21 10:31 Physical Exam Vitals: Vital Signs Temp Pulse Pulse Pulse Resp BP BP 03/08/21 05:00 93 21 03/08/21 04:00 70 23 159/89 03/08/21 03:00 84 23 152/97 03/08/21 02:00 86 24 149/91 03/08/21 01:45 86 24 149/91 03/08/21 01:30 80 22 149/91 03/08/21 01:15 77 22 149/91 03/08/21 01:00 79 27 H 149/78 03/08/21 00:45 73 18 149/78 03/08/21 00:30 70 22 149/78 03/08/21 00:15 75 17 149/78 03/08/21 00:00 98.2 F 79 70 23 142/79 03/07/21 23:45 69 21 142/79 03/07/21 23:30 69 21 142/79 03/07/21 23:27 76 16 03/07/21 23:15 98.4 F 81 25 H 142/79 03/07/21 23:00 81 27 H 141/82 03/07/21 22:45 71 22 141/82 03/07/21 22:42 73 22 141/82 03/07/21 20:00 70 16 03/07/21 19:12 03/07/21 19:00 70 16 147/80 03/07/21 18:37 97.4 F L 71 18 126/72 03/07/21 18:01 81 18 167/98 03/07/21 17:45 78 18 168/97 03/07/21 17:30 72 18 156/88 03/07/21 17:15 64 18 162/96 03/07/21 17:02 93 18 183/90 03/07/21 16:45 93 18 210/97 03/07/21 16:27 97.3 F L 89 16 189/106 03/07/21 06:22 96.0 F L 73 16 171/91 Pulse Ox 03/08/21 05:00 91 L 03/08/21 04:00 88 L 03/08/21 03:00 87 L 03/08/21 02:00 90 L 03/08/21 01:45 90 L 03/08/21 01:30 89 L 03/08/21 01:15 93 L 03/08/21 01:00 88 L 03/08/21 00:45 90 L 03/08/21 00:30 91 L 03/08/21 00:15 90 L 03/08/21 00:00 90 L 03/07/21 23:45 91 L 03/07/21 23:30 92 L 03/07/21 23:27 91 L 03/07/21 23:15 92 L 03/07/21 23:00 89 L 03/07/21 22:45 86 L 03/07/21 22:42 86 L 03/07/21 20:00 03/07/21 19:12 92 L 03/07/21 19:00 92 L 03/07/21 18:37 88 L 03/07/21 18:01 93 L 03/07/21 17:45 93 L 03/07/21 17:30 93 L 03/07/21 17:15 92 L 03/07/21 17:02 92 L 03/07/21 16:45 92 L 03/07/21 16:27 92 L 03/07/21 06:22 97 Intake and Output 03/07/21 03/07/21 03/08/21 14:59 22:59 06:59 Intake Total 2500 460 140 Output Total 3471 840 Balance 24991965 700 Intake: IV 2500 460 140 Lactated Ringers 1,000 ml 60 140 @ 20 mls/hr IV .Q24H [facility] Rx#:[id number] Output: Drainage 80 70 Anterior Neck 10 20 Posterior Neck 70 50 Urine 2142 770 Estimated Blood Loss 200 Other: Voiding Method Indwelling Catheter Indwelling Catheter Weight 114.4 kg ABP, PAP, CO, CI - Last 8 Hours Arterial Blood Pressure 157/105 Arterial Blood Pressure 142/138 Arterial Blood Pressure 140/127 Arterial Blood Pressure 71/71 Arterial Blood Pressure 107/74 Arterial Blood Pressure 117/77 Arterial Blood Pressure 145/77 Arterial Blood Pressure 104/68 Arterial Blood Pressure 160/114 Arterial Blood Pressure 162/112 Arterial Blood Pressure 142/94 Arterial Blood Pressure 123/109 Arterial Blood Pressure 142/82 Arterial Blood Pressure 132/76 Arterial Blood Pressure 146/87 Arterial Blood Pressure 133/82 Arterial Blood Pressure 128/76 Arterial Blood Pressure 117/69 Arterial Blood Pressure 122/69 Appearance, calm, slightly diaphoretic, he is still in pain and his pain scale is in order of 8/10 at this point in time. His current BMI 38.3. Head exam was generally normal. There was no scleral icterus or corneal arcus. Mucous membranes were moist. Neck examination reveals a triple lumen catheter in his left IJ. The patient has a surgical wound site over the anterior right lateral neck and on his posterior neck. The patient has HAMLET drains bilaterally and output is serosanguineous. No significant swelling in his neck area. No stridor. He does snore while sleeping. Lungs diminished breath sound bilaterally along with some scattered rhonchi heard throughout the lung simental and there is prolongation of the exhalation phase of breathing. Breath sounds are diminished on the right compared to left. Cardiac exam revealed the PMI to be normally situated and sized. The rhythm was regular and no extrasystoles were noted during several minutes of auscultation. The first and second heart sounds were normal and physiologic splitting of the second heart sound was noted. There were no murmurs, rubs, clicks, or gallops. Abdominal exam revealed normal bowel sounds. The abdomen was soft, non-tender, and without masses, organomegaly, or appreciable enlargement of the abdominal aorta Examination of the extremities revealed easily palpable radial, femoral and pedal pulses. There was no cyanosis, clubbing or edema. Examination of the skin revealed no evidence of significant rashes, suspicious appearing nevi or other concerning lesions. Surgical wound site over the right neck and posterior neck area dry clean and intact. Results - Laboratory Findings CBC and BMP: 03/08/21 03:34 03/08/21 03:34 ABG ABG pH 7.43 (7.35-7.45) 03/08/21 05:35 ABG pCO2 43 mmHg (35-45) 03/08/21 05:35 ABG pO2 55 mmHg (83-108) L* 03/08/21 05:35 ABG O2 Saturation 89.0 % (94-97) L 03/08/21 05:35 Abnormal lab findings: Abnormal Labs 03/07/21 03/07/21 03/08/21 06:30 18:26 03:34 WBC 29.5 H ABG pO2 ABG HCO3 ABG Total CO2 ABG O2 Saturation Creatinine Glucose POC Glucose (mg/dL) 144 H 203 H 03/08/21 03/08/21 03/08/21 03:34 05:23 05:35 WBC ABG pO2 55 L* ABG HCO3 28 H ABG Total CO2 30 H ABG O2 Saturation 89.0 L Creatinine 0.64 L Glucose 154 H POC Glucose (mg/dL) 167 H - Diagnostic Findings Chest x-ray: image reviewed Assessment and Plan Plan: 1 chronic neck pain secondary to cervical spine disease and the patient is post anterior cervical and posterior cervical spine fusion along with decompression. The patient had anterior cervical C3 through C5 fusion and posterior cervical C2 through T2 fusion. The patient is currently postop day #1 2 acute hypoxic respiratory failure. The patient was extubated following surgery and the patient's blood gases showing acute hypoxic respiratory failure. No significant hypercapnia or CO2 retention. Chest x-rays revealing infiltrates in the lung bases along with chronic right hemidiaphragmatic elevation. As such, his hypoxemia is multifactorial. He has underlying COPD, chronic right hemidiaphragmatic elevation, some COPD exacerbation and new infiltrates in the lower lobes more so on the left could be atelectasis versus aspiration. 3 pain secondary to above currently on a combination of oxycodone, Dilaudid and Flexeril of Neurontin 4 COPD 5 obstructive sleep apnea currently on no treatment 6 diabetes mellitus maintained on metformin outpatient basis 7 hypertension 8 osteoarthritis 9 previous history of MRSA infection Plan We'll put the patient on DuoNeb nebulized treatments 4 times a day [id number] Continue Decadron 4 mg every 4 hours IV No signs of any upper airway obstruction at this point in time. Blood gases was noted Check pro calcitonin level Check over 19 by PCR Add IV Zosyn 3.375 g every 8 hours for possibility of aspiration pneumonia Continue pain control with oxycodone and IV Dilaudid. Continue Neurontin flexible Provide the patient incentive spirometer Patient is currently off BiPAP and the patient is currently on oxygen at 8 L. His oxidation is going to a monitored Overall condition is stable and the patient can potentially transferred to a surgical floor with close monitoring, remote telemetry. He may benefit from CPAP overnight and will keep the CPAP machine at the bedside. DVT prophylaxis with Lovenox and this will be added if okay by the surgical team.
[2021-03-08 06:23] LABS: African American GFR (CKD) >90 (>60 ml/min/1.73 sqM); Anion Gap 6 mmol/L; Blood Urea Nitrogen 15 mg/dL (9-20); Calcium 6.7 mg/dL (8.4-10.2); Carbon Dioxide 21 mmol/L (22-30); Chloride 112 mmol/L (98-107); Glucose 125 mg/dL (74-99); Non-African American GFR(CKD) >90 (>60 ml/min/1.73 sqM); Potassium 3.3 mmol/L (3.5-5.1); Sodium 139 mmol/L (137-145)
[2021-03-08] MEDS ORDERED: Potassium Replacement Protocol 1 EACH MISC MISCELLANE PRN (06:42)
[2021-03-08 07:17] LABS: Band Neutrophils % 9 %; Lymphocytes # (M) 0.59 k/uL (1.0-4.8); Monocytes # (M) 0.59 k/uL (0-1.0); Neutrophils % (M) 87 %; Nucleated Red Blood Cells 0 /100 WBC (0-0); Total Cells Counted 100
[2021-03-08] MEDS: POTASSIUM CHLORIDE ER 20 MEQ TAB.ER PO SCH ×2 (07:49→08:45)
--- NOTE | 2021-03-08 08:28 | XR ---
EXAMINATION TYPE: XR chest 1V portable DATE OF EXAM: 03/08/2021 CLINICAL HISTORY: Difficulty breathing progress study. TECHNIQUE: Single AP portable semiupright view of the chest is obtained. COMPARISON: Chest x-ray from one day earlier FINDINGS: Extensive surgical change to the cervical spine is partially imaged. Stable left internal jugular central venous catheter terminating in right atrium. Persistent low lung volumes and cardiomegaly. Elevated right hemidiaphragm with patchy right basilar opacity. Worsening left mid to lower lung opacities. IMPRESSION: Worsening right basilar atelectasis and/or infiltrate. Worsening left mid to lower lung e negro and/or infiltrates.
[2021-03-08] MEDS: DEXMEDETOMIDINE/0.9% NACL(PMX) 400 MCG in EMPTY BAG 1 BAG IV SCH ×2 (08:45→12:32)
[2021-03-08] MEDS: PIPERACILLIN-TAZOBACTAM 3.375 GM in SODIUM CHLORIDE 0.9% 100 ML IVPB SCH ×3 (08:45→23:38)
[2021-03-08] MEDS: GABAPENTIN 400 MG CAP PO SCH ×3 (08:45→21:01)
[2021-03-08] MEDS: ENOXAPARIN 40 MG/0.4 ML SYRINGE SQ SCH (08:49)
[2021-03-08] MEDS: VANCOMYCIN 1,750 MG in SODIUM CHLORIDE 0.9% 500 ML 500 ML IVPB SCH ×2 (09:45→18:03)
--- NOTE | 2021-03-08 11:32 | P.PN ---
Subjective Progress Note Date: 03/08/21 Principal diagnosis: Cervical Myelopathy Patient seen and examined this morning. He is sitting up in bed doing fairly well vital signs are stable. He is able to complete sentences he is on nasal cannula currently. His pain is moderately controlled but he is in some pain right now. He denies any new numbness or tingling. He states that his arms feel well and he is moving them around. He is a little bit confused and try to get out of bed as he has to urinate but he does have a Zavala catheter in place. He denies any fevers chills shortness of breath or chest pain at this time Objective - Vital Signs Vital signs: Vital Signs Temp 98.2 F 03/08/21 00:00 Pulse 89 03/08/21 07:00 Resp 26 H 03/08/21 07:00 BP 156/83 03/08/21 07:00 Pulse Ox 91 L 03/08/21 07:00 Intake & Output 03/07/21 03/08/21 03/08/21 18:59 06:59 18:59 Intake Total 2900 220 20 Output Total 1575 1940 110 Balance 1325 -1720 -90 Weight 114.4 kg Intake: IV 2900 220 20 Lactated Ringers 1,000 ml 220 20 @ 20 mls/hr IV .Q24H [facility] Rx#:[id number] Output: Drainage 150 Anterior Neck 30 Posterior Neck 120 Urine 1375 1790 110 Estimated Blood Loss 200 Other: Voiding Method Indwelling Catheter ABP, PAP, CO, CI - Last Documented Arterial Blood Pressure 183/101 - Exam PHYSICAL EXAMINATION: Vitals: Stable at this time General: Awake, alert, appropriate for age, in no acute distress. HEENT: No unusual neck masses around region of lateral neck triangle, thyroid, supraclavicular groove. Extremities: Skin warm and dry without no acute lesions, coloration, tempe rature, skin intact, no tenderness or erythema. Integument: Hairy patches: Absent Dorsal skin dimples: Absent [employer] spots: Absent Surgical incisions: Clean and dry Palpation: Please see Pain drawing on Intake sheet for further detail. (Tenderness = T, Nontender = NT, Swelling = S, Ecchymosis = E) Findings on Midline and paraspinal palpation and percussion: Cervical: minor TTP Thoracic: NT Lumbar: NT Sacral: NT Special findings: No hematoma no large swelling no masses anterior no tracheal deviation VASCULAR STATUS : Wrist Pulses: 2/4 bilateral radial and ulnar Pedal Pulses: 2/4 bilateral DP and PT Color: Normal Edema: None NEUROLOGIC EXAMINATION: Mental Status: Awake and alert, fully oriented, with normal attention, concentration and memory, and fluent, appropriate speech. Cranial Nerves: I: Olfactory not tested. II: Visual acuity normal, no visual field deficit noted with confrontation. III,IV: Normal pupillary reflexes & intact extraocular movements without nystagmus. V,: Intact symmetrical facial sensation. VII: Intact symmetrical facial motor movement VIII: Hearing intact. IX,X: Intact gag, swallow, & normal voice. XI: Sternocleidomastoid, trapezius function intact. XII: Tongue midline with normal movements. Motor Exam (0-5/5, N/T) STRENGTH UPPER EXTREMITY Shoulder Abd (Not part of ROSY Motor score): RIGHT 4 LEFT 4 Elbow Flexors: RIGHT 4 LEFT 4 Elbow Extensor: RIGHT 4 LEFT 4 Wrrist Dorsiflexors: RIGHT 4 LEFT 4 Finger Abductor: RIGHT 4 LEFT 4 Brass Cleaner: RIGHT 4 LEFT 4 LOWER EXTREMITY Hip Flexor (Not part of ROSY Motor Score): RIGHT 4 LEFT 4 Knee Flexor: RIGHT 4 LEFT 4 Knee Extensor: RIGHT 4 LEFT 4 Ankle Dorsiflexion: RIGHT 4 LEFT 4 Ankle Plantarflexion: RIGHT 4 LEFT 4 EHL: RIGHT 4 LEFT 4 FHL: RIGHT 4 LEFT 4 Somewhat generalized weakness right now however no focal deficits and patient states he feels like he is improving and getting stronger. REFLEXES Biecp: RIGHT 3 LEFT 3 Tricep: RIGHT 3 LEFT 3 Brachioradialis: RIGHT 3 LEFT 3 Patellar: RIGHT 3 LEFT 3 Achilles: RIGHT 3 LEFT 3 Pathological Reflexes Ramirez's: RIGHT present LEFT sent Babinski: RIGHT down going LEFT down going Clonus: RIGHT ten-12 beats LEFT 10-12 beats SENSORY Joint Position: Intact bilaterally Vibration Intact bilaterally Pain and LT sense Intact C5-T1 and L2-S1 Dermatomal deficit None Gait and Functional Evaluation: Difficulty with hand and finger dexterity still. Disdiadochokinesis examination positive bilaterally. - Labs CBC & Chem 7: 03/08/21 03:34 03/08/21 05:10 Labs: Abnormal Lab Results - Last 24 Hours (Table) 03/07/21 03/08/21 03/08/21 Range/Units 18:26 03:34 03:34 WBC 29.5 H (3.8-10.6) k/uL Neutrophils # (Manual) 28.30 H (1.3-7.7) k/uL Lymphocytes # (Manual) 0.59 L (1.0-4.8) k/uL ABG pO2 (83-108) mmHg ABG HCO3 (21-25) mmol/L ABG Total CO2 (19-24) mmol/L ABG O2 Saturation (94-97) % Potassium (3.5-5.1) mmol/L Chloride (98-107) mmol/L Carbon Dioxide (22-30) mmol/L Creatinine 0.64 L (0.66-1.25) mg/dL Glucose 154 H (74-99) mg/dL POC Glucose (mg/dL) 203 H (75-99) mg/dL Calcium (8.4-10.2) mg/dL 03/08/21 03/08/21 03/08/21 Range/Units 05:10 05:23 05:35 WBC (3.8-10.6) k/uL Neutrophils # (Manual) (1.3-7.7) k/uL Lymphocytes # (Manual) (1.0-4.8) k/uL ABG pO2 55 L* (83-108) mmHg ABG HCO3 28 H (21-25) mmol/L ABG Total CO2 30 H (19-24) mmol/L ABG O2 Saturation 89.0 L (94-97) % Potassium 3.3 L (3.5-5.1) mmol/L Chloride 112 H (98-107) mmol/L Carbon Dioxide 21 L (22-30) mmol/L Creatinine 0.44 L (0.66-1.25) mg/dL Glucose 125 H (74-99) mg/dL POC Glucose (mg/dL) 167 H (75-99) mg/dL Calcium 6.7 L (8.4-10.2) mg/dL Assessment and Plan Assessment: 1. s/p C5-7 ACDF with adjacent segment disease 2. Cervical spondylitic myelopathy 3. B/L UE weakness 4. B/L LE weakness Plan: -Appreciate medicine ICU management. Symptom Control: -Pain control: Add Precedex for pain control. -Flexeril 10 3 times a day -Decadron for every 4 Pending tests: -Aggressive ambulation protocol. OOB with all meals. OOB or in chair 4-5x daily. -PT/OT -TLSO brace Prophylaxis: -TEDs, SCDs, mechanical ppx. Early ambulation is best. -GI ppx. -Start Lovenox tomorrow Imaging/labs: -Computed tomography scan of the cervical spine pending at this time -Trend labs as appropriate Intervention: PT OT Decadron Precedex Transfer out of unit per ICU management team Dispo: Pending
[2021-03-08 12:01] LABS: Glucose,Whole Blood 183 mg/dL (75-99)
[2021-03-08 12:08] LABS: ABG HCO3 28 mmol/L (21-25); ABG Oxygen Saturation 91.2 % (94-97); ABG PCO2 40 mmHg (35-45); ABG PH 7.45 (7.35-7.45); ABG TCO2 29 mmol/L (19-24)
[2021-03-08 12:10] LABS: ABG PO2 59 mmHg (83-108)
[2021-03-08] MEDS: IPRATROPIUM-ALBUTEROL 3 ML NEB INHALATION SCH ×4 (12:15→20:31)
[2021-03-08 15:59] LABS: ABG Base Excess 1.3 mmol/L; ABG HCO3 26 mmol/L (21-25); ABG Oxygen Saturation 92.1 % (94-97); ABG PCO2 39 mmHg (35-45); ABG PH 7.43 (7.35-7.45); ABG PO2 63 mmHg (83-108); ABG TCO2 27 mmol/L (19-24)
[2021-03-08 16:00] LABS: Allen Test Performed? yes
[2021-03-08] MEDS: LACTATED RINGERS 1,000 ML IV SCH (16:20)
--- NOTE | 2021-03-08 16:28 | CONS ---
CONSULTATION This 55-year-old male is status post multi-level cervical fusion, C3, C5 anterior C2 with decompression, day 1, extubated in the ICU. Labs were reviewed. X-rays were reviewed. Pain control. Please see further orders. Fourteen-point review of systems negative except for pain, swelling and difficult movement of his joints. PAST MEDICAL HISTORY: COPD, diabetes mellitus, hypertension, GERD, osteoarthritis. SURGERIES: Appendectomy, back surgery, cholecystectomy, orthopedic surgery. HOME MEDICATIONS: Methocarbamol, Glucophage, Wellbutrin, Norvasc, Paxil, gabapentin, Ventolin. ALLERGIES: Negative. PHYSICAL EXAMINATION: VITAL SIGNS: Blood pressure 140s to 150s over 70s, respiratory rate 17 to 22, pulse 70s to 80s. CARDIOVASCULAR: S1, S2. LUNGS: Transmitted upper airway sounds. HEMATOLOGY: Negative Homans. PSYCH: Fair mood and affect. NEUROLOGIC: Alert oriented x3. Surgical packing over the anterior neck. HAMLET drains. White count 29.5, hemoglobin is 14.9. ASSESSMENT: 1. Chronic neck pain, status post surgery, fusion, day 2, due to hypoxemic respiratory failure. 2. Possible pneumonia versus chronic obstructive pulmonary disease. 3. Pain medicines, chronic pain disease. 4. Chronic obstructive pulmonary disease. 5. Sleep apnea. 6. Diabetes mellitus. 7. Hypertension. 8. Osteoarthritis. He is on steroids, IV antibiotics, pain control. Please see further orders. MMODL / IJN: [id number] /
[2021-03-08 16:45] LABS: Glucose,Whole Blood 193 mg/dL (75-99)
[2021-03-08] MEDS ORDERED: FUROSEMIDE 10 MG/ML 2 ML VIAL IV ONE (17:15)
[2021-03-08] MEDS: PARoxetine 20 MG TAB PO SCH (18:03)
[2021-03-08] MEDS: INSULIN ASPART (NovoLOG) 100 UNIT/ML VIAL SQ SCH ×2 (18:11→23:39)
[2021-03-08] MEDS: buPROPion SR 150 MG TABLET.ER PO SCH (20:53)
[2021-03-08] MEDS ORDERED: INSULIN ASPART (NovoLOG) 100 UNIT/ML VIAL SQ SCH (21:00)
[2021-03-08 21:34] LABS: Glucose,Whole Blood 286 mg/dL (75-99)
--- NOTE | 2021-03-08 21:55 | XR ---
EXAMINATION TYPE: XR chest 1V portable DATE OF EXAM: 03/08/2021 COMPARISON: Today HISTORY: Respiratory distress TECHNIQUE: Single view FINDINGS: There is some diffuse pneumonia in the left lung. There is elevated right diaphragm with so me atelectasis and minimal infiltrate right lung base. There is no heart failure. There is left jugul ar catheter with tip in the superior vena cava. IMPRESSION: Bilateral pneumonic infiltrates slightly improved compared to exam this morning.
[2021-03-08 23:15] LABS: Glucose,Whole Blood 260 mg/dL (75-99)
[2021-03-09] MEDS: VANCOMYCIN 1,750 MG in SODIUM CHLORIDE 0.9% 500 ML 500 ML IVPB SCH ×3 (02:58→18:17)
[2021-03-09] MEDS: DEXAMETHASONE SOD PHOSPHATE 4 MG/ML 1 ML VIAL IV SCH ×6 (02:58→23:06)
[2021-03-09 04:34] LABS: Glucose,Whole Blood 177 mg/dL (75-99)
[2021-03-09] MEDS: ACETAMINOPHEN TAB 500 MG TAB PO SCH ×4 (05:55→23:07)
[2021-03-09 06:34] LABS: Glucose,Whole Blood 257 mg/dL (75-99)
[2021-03-09] MEDS: INSULIN ASPART (NovoLOG) 100 UNIT/ML VIAL SQ SCH ×4 (06:36→20:45)
[2021-03-09 07:23] LABS: Basophils % (A) 0 %; Eosinophils # (A) 0.2 k/uL (0-0.7); Eosinophils % (A) 1 %; HCT 41.7 % (39.0-53.0); HGB 14.5 gm/dL (13.0-17.5); Lymphocytes # (A) 0.6 k/uL (1.0-4.8); Lymphocytes % (A) 3 %; MCH 32.6 pg (25.0-35.0); MCHC 34.7 g/dL (31.0-37.0); Mean Platelet Volume 7.1; Monocytes % (A) 4 %; Neutrophils % (A) 92 %; Platelet Count 264 k/uL (150-450); RBC 4.44 m/uL (4.30-5.90); WBC 22.8 k/uL (3.8-10.6)
[2021-03-09 07:45] LABS: African American GFR (CKD) >90 (>60 ml/min/1.73 sqM); Anion Gap 7 mmol/L; Blood Urea Nitrogen 24 mg/dL (9-20); Calcium 8.9 mg/dL (8.4-10.2); Carbon Dioxide 27 mmol/L (22-30); Chloride 103 mmol/L (98-107); Glucose 172 mg/dL (74-99); Magnesium 2.3 mg/dL (1.6-2.3); Non-African American GFR(CKD) >90 (>60 ml/min/1.73 sqM); Potassium 4.3 mmol/L (3.5-5.1); Sodium 137 mmol/L (137-145)
[2021-03-09] MEDS: IPRATROPIUM-ALBUTEROL 3 ML NEB INHALATION SCH ×4 (08:01→20:25)
--- NOTE | 2021-03-09 08:04 | XR ---
EXAMINATION TYPE: XR chest 1V portable DATE OF EXAM: 03/09/2021 CLINICAL HISTORY: Difficulty breathing progress study. TECHNIQUE: Single AP portable upright view of the chest is obtained. COMPARISON: Chest x-ray from one and 2 days earlier FINDINGS: Surgical change to the cervical spine is partially imaged. Prominent multilevel spurring i n thoracic spine. Persistent left internal jugular central venous catheter, tip less well seen on cur rent study. Persistent low lung volumes and cardiomegaly. Elevated right hemidiaphragm with patchy right mid to b asilar opacity. More prominent left mid to lower lung opacities redemonstrated. More prominent conflu ent opacities left lung base noted. IMPRESSION: Continued Worsening right mid to basilar atelectasis and/or infiltrate. Continued worseni ng left mid to lower lung infiltrates.
--- NOTE | 2021-03-09 08:34 | P.PN ---
Subjective Progress Note Date: 03/09/21 Principal diagnosis: Status post C5-C7 ACDF, C2-T2 posterior stabilized fusion, cervical spondylitic myelopathy Patient was evaluated by myself and Dr. Jeffrey today at bedside in the ICU. Patient is currently on BiPAP and being followed by the charter driver on the unit. Patient's home meds were restarted yesterday, the confusion and agitation has improved significantly. Currently patient is feeling well answering questions adequately. He's having no significant neck pain either anterior or posterior. He denies any acute changes in his shortness of breath. He denies any acute chest pain. He denies any worsening symptoms with regards to the numbness and tingling or weakness in the bilateral upper or lower extremities. He was able to get to the side of the bed yesterday, he has not ambulated at this time. There has been some concern with possible fluid overload along surrounding the heart at this time. Positionally in bed, the patient's sats have decreased depending on if the patient is elevated versus lying flat. Patient is scheduled to receive a breathing treatment today. The charter driver has been also updated on his status and will continue to follow. A cardiology consult will also be placed. Objective - Vital Signs Vital signs: Vital Signs Temp 98.3 F 03/09/21 04:00 Pulse 68 03/09/21 08:12 Resp 22 03/09/21 06:00 BP 154/93 03/09/21 06:00 Pulse Ox 100 03/09/21 06:00 Intake & Output 03/08/21 03/09/21 03/09/21 18:59 06:59 18:59 Intake Total 1564.922 340 Output Total 1395 1400 Balance 169.922 -1060 Weight 105.8 kg Intake: IV 1440 340 Lactated Ringers 1,000 ml 240 240 @ 20 mls/hr IV .Q24H [facility] Rx#:[id number] Piperacillin-Tazobactam 3 200 100 .375 gm In Sodium Chloride 0.9% 100 ml @ 25 mls/hr IVPB Q8HR [facility] Rx# :[id number] Vancomycin 1,750 mg In 1000 Sodium Chloride 0.9% 500 ml 500 ml @ 167 mls/hr IVPB Q12HR [facility] Rx#: [id number] Intake, IV Titration 64.922 Amount Dexmedetomidine/0.9% NaCl 64.922 (Pmx) 400 mcg In Empty Bag 1 bag @ Titrate IV . Q0M [facility] Rx#:[id number] Oral 60 Output: Drainage 210 30 Anterior Neck 10 0 Posterior Neck 200 30 Urine 1185 1370 Other: Voiding Method Indwelling Catheter Indwelling Catheter ABP, PAP, CO, CI - Last Documented Arterial Blood Pressure 123/88 - Exam Gen: AOx3, NAD VSS stable at this time Integument: Drains are intact both anterior and posterior. The bandage was changed on the posterior incision, cellerate ointment was then applied. The torsten and sutures are all in good position and condition. There is no active drainage visualized. Palpation: Minimal tenderness with palpation along the paraspinal region of the posterior cervical region. No significant tenderness is appreciated in the anterior neck with palpation ROM: Fullr range of motion is noted in all major muscle groups of the bilateral upper and lower extremities Sensory Exam: Senory exam to light touch is intact C5-T1 Senosry exam to light touch is intact L2-S1 Motor: 4-5 strength is appreciated in all major muscle groups in the bilateral upper and lower extremities Reflexes: 3/4 in all upper extremity and lower extremity Positive Philippe's test bilaterally Positive clonus bilaterally - Labs CBC & Chem 7: 03/09/21 06:49 03/09/21 06:49 Labs: Abnormal Lab Results - Last 24 Hours (Table) 03/08/21 03/08/21 03/08/21 Range/Units 11:59 12:01 15:57 WBC (3.8-10.6) k/uL Neutrophils # (1.3-7.7) k/uL Lymphocytes # (1.0-4.8) k/uL ABG pO2 59 L* 63 L (83-108) mmHg ABG HCO3 28 H 26 H (21-25) mmol/L ABG Total CO2 29 H 27 H (19-24) mmol/L ABG O2 Saturation 91.2 L 92.1 L (94-97) % BUN (9-20) mg/dL Creatinine (0.66-1.25) mg/dL Glucose (74-99) mg/dL POC Glucose (mg/dL) 183 H (75-99) mg/dL 03/08/21 03/08/21 03/08/21 Range/Units 16:43 21:32 23:13 WBC (3.8-10.6) k/uL Neutrophils # (1.3-7.7) k/uL Lymphocytes # (1.0-4.8) k/uL ABG pO2 (83-108) mmHg ABG HCO3 (21-25) mmol/L ABG Total CO2 (19-24) mmol/L ABG O2 Saturation (94-97) % BUN (9-20) mg/dL Creatinine (0.66-1.25) mg/dL Glucose (74-99) mg/dL POC Glucose (mg/dL) 193 H 286 H 260 H (75-99) mg/dL 03/09/21 03/09/21 03/09/21 Range/Units 04:32 06:33 06:49 WBC (3.8-10.6) k/uL Neutrophils # (1.3-7.7) k/uL Lymphocytes # (1.0-4.8) k/uL ABG pO2 (83-108) mmHg ABG HCO3 (21-25) mmol/L ABG Total CO2 (19-24) mmol/L ABG O2 Saturation (94-97) % BUN 24 H (9-20) mg/dL Creatinine 0.58 L (0.66-1.25) mg/dL Glucose 172 H (74-99) mg/dL POC Glucose (mg/dL) 177 H 257 H (75-99) mg/dL 03/09/21 Range/Units 06:49 WBC 22.8 H (3.8-10.6) k/uL Neutrophils # 21.0 H (1.3-7.7) k/uL Lymphocytes # 0.6 L (1.0-4.8) k/uL ABG pO2 (83-108) mmHg ABG HCO3 (21-25) mmol/L ABG Total CO2 (19-24) mmol/L ABG O2 Saturation (94-97) % BUN (9-20) mg/dL Creatinine (0.66-1.25) mg/dL Glucose (74-99) mg/dL POC Glucose (mg/dL) (75-99) mg/dL Assessment and Plan Assessment: Postop day #2 status post C5-C7 ACDF, C2-T2 posterior stabilized patient Cervical spondylitic myelopathy Other medical comorbidities Plan: Pain control, continue with current medication regimen DVT prophylaxis, continue use of PIERRE hose and SCDs, Lovenox can be restarted today Wound care, continue both anterior and posterior drain. We'll likely change anterior dressing and pull anterior drain tomorrow PT/OT evaluation, hopeful for patient to ambulate today with the assistance of walker. Hard c-collar must be worn when ambulating Cardiology consult placed, appreciate recommendations Other medical claims analyst and recommendations We'll continue to follow during inpatient stay Time with Patient: Less than 30
[2021-03-09] MEDS ORDERED: VANCOMYCIN TROUGH DUE 1 EACH MISC MISCELLANE ONE ×2 (09:00→17:00)
--- NOTE | 2021-03-09 09:07 | P.PN ---
Subjective Progress Note Date: 03/09/21 A 65-year-old male patient underwent a multilevel cervical spine fusion C3 through C5 anteriorly and C2 through T2 posteriorly with decompression and the patient is currently postop day #1. Immediately following surgery, the patient was extubated and was brought up today intensive care unit. Postop, there was concern for some increased shortness of breath and poor oxygenation. For that reason the patient was In the intensive care unit overnight. He was desaturating and his pulse ox was as low as 89%. He was given Decadron and he was also placed on a BiPAP for several hours and currently is on oxygen at 6 L per minute nasal cannula. The x-ray of the neck was also done that showed surgical instrumentation throughout the cervical spine with hardware. Surgical drains were over the anterior and the posterior neck. There was small amount of gas in the retropharyngeal space and there was no evidence of any upper airway obstruction. Clinically, the patient does not have any stridor. A repeat chest x-ray was done today and shows smaller lung volumes. The patient's chronic elevation of the right hemidiaphragm. There is increased interstitial markings in the lung bases along with some atelectasis and some possible early infiltration of the left lower lobe. The patient's white cell count is at 29.5 and hemoglobin 14.9. Rest of the blood work is within normal limits. He is known to have COPD and is also known to have obstructive sleep apnea and the patient does not utilize any form of CPAP therapy on outpatient basis. His active problems forpain may need the surgical site and the patient is receiving a combination of dilated 1 mg every 3 hours, Flexeril and oxycodone 10 mg every 6 hours on a when necessary basis. Antibiotic prophylaxis with vancomycin. He is moving all 4 extremities without any limitation. He is admitted diaphoretic and sweaty because of his ongoing pain. No focal neurological deficit. No altered mentation. On 03/09/2021, the patient is on BiPAP. He is postop day #2 following his C- spine surgery and postoperatively developed some increase his fluid distress and hypoxemia along with some restlessness and agitation. For that reason, the meredith ent got admitted to the intensive care unit. I had them on 60 of oxygen by nasal cannula and he was doing relatively okay by yesterday evening and subsequently was placed on BiPAP at the pressures of 14/6 cm of water with an FiO2 of 70%. He is able to generate tidal volumes of 800 mL with a respiration of 22 and a minute ventilation of 20 L per minute. Note that the patient was being treated on and off with BiPAP throughout the day yesterday. The chest x- ray from today showing development of lower lobe active pulmonary infiltrates most consistent with pneumonia/atelectasis. I do not appreciate any fluid. He also has chronic right hemidiaphragmatic elevation. The spine surgeon wanted to get a follow-up CAT scan of his C-spine. He went down to CAT scan and he was unable to lay down flat and the testing was aborted. He was brought back to the ICU. Currently his white cell count of 22.8. The rest of the blood work shows normal renal function, normal electrolytes, the pro-calcitonin level LEVEL WAS AT 0.05. IN ANY RATE, I SUSPECTED PNEUMONIA AND I COVERED THEM WITH with a comb ination of antibiotics including Zosyn and vancomycin. He is afebrile. As stated, the white cell count is mildly elevated at 22.8. He is hemodynamically stable. No hypotension. Neurologically, he is awake and alert and following commands. He is receiving Dilaudid for pain control 1 mg every 3 hours in addition to oxycodone 10 mg every 6 hours. He is also on Flexeril and gabapentin. He is moving all 4 extremities. He has adequate motor function to upper and lower extremities bilaterally. No stridor. He has HAMLET drains in his back and output is 0 mL anterior, 2 50 mL posterior, serosanguineous, bloody. Objective - Vital Signs Vital signs: Vital Signs Temp 98.3 F 03/09/21 04:00 Pulse 68 03/09/21 08:12 Resp 22 03/09/21 06:00 BP 154/93 03/09/21 06:00 Pulse Ox 100 03/09/21 06:00 Intake & Output 03/08/21 03/09/21 03/09/21 18:59 06:59 18:59 Intake Total 1564.922 340 Output Total 1395 1400 Balance 169.922 -1060 Weight 105.8 kg Intake: IV 1440 340 Lactated Ringers 1,000 ml 240 240 @ 20 mls/hr IV .Q24H [facility] Rx#:[id number] Piperacillin-Tazobactam 3 200 100 .375 gm In Sodium Chloride 0.9% 100 ml @ 25 mls/hr IVPB Q8HR [facility] Rx# :[id number] Vancomycin 1,750 mg In 1000 Sodium Chloride 0.9% 500 ml 500 ml @ 167 mls/hr IVPB Q12HR [facility] Rx#: [id number] Intake, IV Titration 64.922 Amount Dexmedetomidine/0.9% NaCl 64.922 (Pmx) 400 mcg In Empty Bag 1 bag @ Titrate IV . Q0M [facility] Rx#:[id number] Oral 60 Output: Drainage 210 30 Anterior Neck 10 0 Posterior Neck 200 30 Urine 1185 1370 Other: Voiding Method Indwelling Catheter Indwelling Catheter ABP, PAP, CO, CI - Last Documented Arterial Blood Pressure 123/88 - Exam Appearance, calm, slightly diaphoretic, he is still in pain and his pain scale is in order of 5/10 at this point in time. His current BMI 38.3. Head exam was generally normal. There was no scleral icterus or corneal arcus. Mucous membranes were moist. Neck examination reveals a triple lumen catheter in his left IJ. The patient has a surgical wound site over the anterior right lateral neck and on his posterior neck. The patient has HAMLET drains bilaterally and output is serosanguineous. No significant swelling in his neck area. No stridor. He does snore while sleeping. Lungs diminished breath sound bilaterally along with some scattered rhonchi heard throughout the lung simental and there is prolongation of the exhalation phase of breathing. Breath sounds are diminished on the right compared to left. Cardiac exam revealed the PMI to be normally situated and sized. The rhythm was regular and no extrasystoles were noted during several minutes of auscultation. The first and second heart sounds were normal and physiologic splitting of the second heart sound was noted. There were no murmurs, rubs, clicks, or gallops. Abdominal exam revealed normal bowel sounds. The abdomen was soft, non-tender, and without masses, organomegaly, or appreciable enlargement of the abdominal aorta Examination of the extremities revealed easily palpable radial, femoral and pedal pulses. There was no cyanosis, clubbing or edema. Examination of the skin revealed no evidence of significant rashes, suspicious appearing nevi or other concerning lesions. Surgical wound site over the right neck and posterior neck area dry clean and intact. - Labs CBC & Chem 7: 03/09/21 06:49 03/09/21 06:49 Labs: Abnormal Lab Results - Last 24 Hours (Table) 03/08/21 03/08/21 03/08/21 Range/Units 11:59 12:01 15:57 WBC (3.8-10.6) k/uL Neutrophils # (1.3-7.7) k/uL Lymphocytes # (1.0-4.8) k/uL ABG pO2 59 L* 63 L (83-108) mmHg ABG HCO3 28 H 26 H (21-25) mmol/L ABG Total CO2 29 H 27 H (19-24) mmol/L ABG O2 Saturation 91.2 L 92.1 L (94-97) % BUN (9-20) mg/dL Creatinine (0.66-1.25) mg/dL Glucose (74-99) mg/dL POC Glucose (mg/dL) 183 H (75-99) mg/dL 03/08/21 03/08/21 03/08/21 Range/Units 16:43 21:32 23:13 WBC (3.8-10.6) k/uL Neutrophils # (1.3-7.7) k/uL Lymphocytes # (1.0-4.8) k/uL ABG pO2 (83-108) mmHg ABG HCO3 (21-25) mmol/L ABG Total CO2 (19-24) mmol/L ABG O2 Saturation (94-97) % BUN (9-20) mg/dL Creatinine (0.66-1.25) mg/dL Glucose (74-99) mg/dL POC Glucose (mg/dL) 193 H 286 H 260 H (75-99) mg/dL 03/09/21 03/09/21 03/09/21 Range/Units 04:32 06:33 06:49 WBC (3.8-10.6) k/uL Neutrophils # (1.3-7.7) k/uL Lymphocytes # (1.0-4.8) k/uL ABG pO2 (83-108) mmHg ABG HCO3 (21-25) mmol/L ABG Total CO2 (19-24) mmol/L ABG O2 Saturation (94-97) % BUN 24 H (9-20) mg/dL Creatinine 0.58 L (0.66-1.25) mg/dL Glucose 172 H (74-99) mg/dL POC Glucose (mg/dL) 177 H 257 H (75-99) mg/dL 03/09/21 Range/Units 06:49 WBC 22.8 H (3.8-10.6) k/uL Neutrophils # 21.0 H (1.3-7.7) k/uL Lymphocytes # 0.6 L (1.0-4.8) k/uL ABG pO2 (83-108) mmHg ABG HCO3 (21-25) mmol/L ABG Total CO2 (19-24) mmol/L ABG O2 Saturation (94-97) % BUN (9-20) mg/dL Creatinine (0.66-1.25) mg/dL Glucose (74-99) mg/dL POC Glucose (mg/dL) (75-99) mg/dL Assessment and Plan Plan: 1 chronic neck pain secondary to cervical spine disease and the patient is post anterior cervical and posterior cervical spine fusion along with decompression. The patient had anterior cervical C3 through C5 fusion and posterior cervical C2 through T2 fusion. The patient is currently postop day #2 2 acute hypoxic respiratory failure. The patient was extubated following surgery and the patient's blood gases showing acute hypoxic respiratory failure. No significant hypercapnia or CO2 retention. Chest x-rays revealing infiltrates in the lung bases along with chronic right hemidiaphragmatic elevation. As such, his hypoxemia is multifactorial. He has underlying COPD, chronic right hemidiaphragmatic elevation, some COPD exacerbation and new infiltrates in the lower lobes more so on the left could be atelectasis versus aspiration. There is further worsening of the infiltration of the left lower lobe. The patient is currently on examination Zosyn and vancomycin. Pro calcitonin levels are low. Suspect atelectasis. Currently on BiPAP at a pressure of 13/6 cm of water. Underlying CHF is doubtful. Cardiology consultation has been obtained. 3 pain secondary to above currently on a combination of oxycodone, Dilaudid and Flexeril of Neurontin 4 COPD 5 obstructive sleep apnea currently on no treatment 6 diabetes mellitus maintained on metformin outpatient basis 7 hypertension 8 osteoarthritis 9 previous history of MRSA infection Plan We'll put the patient on DuoNeb nebulized treatments 4 times a day [id number] Continue Decadron 4 mg every 4 hours IV No signs of any upper airway obstruction at this point in time. Blood gases was noted Check pro calcitonin level came back low Check over 19 by PCR was negative IV Zosyn 3.375 g every 8 hours for possibility of aspiration pneumonia in combination with vancomycin. The pro calcitonin level was negative. Continue pain control with oxycodone and IV Dilaudid. Continue Neurontin flexible Provide the patient incentive spirometer Patient is currently on BiPAP cardiology consult Down the FiO2 down to 50% Depression is bronchospastic and wheezy compared to yesterday HEENT the patient intensive care unit DVT prophylaxis with Lovenox We'll continue to follow.
[2021-03-09] MEDS: buPROPion SR 150 MG TABLET.ER PO SCH ×2 (09:48→21:08)
[2021-03-09] MEDS: GABAPENTIN 400 MG CAP PO SCH ×3 (09:48→21:08)
[2021-03-09] MEDS: PARoxetine 20 MG TAB PO SCH (09:48)
[2021-03-09] MEDS: PIPERACILLIN-TAZOBACTAM 3.375 GM in SODIUM CHLORIDE 0.9% 100 ML IVPB SCH ×3 (09:49→23:06)
[2021-03-09] MEDS: ENOXAPARIN 40 MG/0.4 ML SYRINGE SQ SCH (09:49)
[2021-03-09] MEDS: amLODIPine 10 MG TAB PO SCH (09:50)
[2021-03-09] MEDS ORDERED: FUROSEMIDE 10 MG/ML 4 ML VIAL IV STA (10:15)
--- NOTE | 2021-03-09 10:43 | P.CRDCN ---
History of Present Illness History of present illness: HISTORY OF PRESENTING ILLNESS This is a pleasant 55-year-old male past medical history significant for hypertension, COPD, diabetes mellitus, spondylosis, degenerative disc disease and chronic nicotine/marijuana dependence. He is status post cervical spine fusion with decompression, POD#2. 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 We have been asked to see in consultation for possible heart failure. He was sent to the hospital for upper extremity weakness per ortho and underwent surgery thereafter on the . Initially after extubation he felt ok, per the pt. However, in the eveing of the he began to feel some increased dyspnes. Then yesterday he states he started feeling more short of breath. He denies chest pain, dizziness or palpitations. There is no EKG on the chart. Telemetry tracings reveal sinus mechanism with no arrhythmias. Chest xray this morning reveals worsening right mid to basilar atelectasis and/or infiltrate with worsening left to mid lower lung infiltrates as well. He is currently on Bipap and was given one dose of IV lasix last night per ortho. According to the patient his breathing doesn't feel any better today compared to yesterday. Laboratory data reviewed, WBC 22.8, b ilirubin 0.5, platelets 264, sodium 137, potassium 4.3, creatinine 0.58, magnesium 2.3 and pro-calcitonin 0.05. Current cardiac medications include amlodipine 10 mg daily. REVIEW OF SYSTEMS At the time of my exam: CONSTITUTIONAL: Denies fever or chills. CARDIOVASCULAR: Complains of shortness of breath and orthopnea. Denies chest pain, shortness of breath, orthopnea, PND or palpitations. RESPIRATORY: Denies cough. GASTROINTESTINAL: Denies abdominal pain, diarrhea, constipation, nausea or vomit ing. MUSCULOSKELETAL: Complains of surgical incision site discomfort. NEUROLOGIC: Denies numbness, tingling, headacbe or weakness. ENDOCRINE: Denies fatigue, weight change, polydipsia or polyurina. GENITOURINARY: Denies burning, hematuria or urgency with micturation. HEMATOLOGIC: Denies history of anemia or bleeding. PHYSICAL EXAMINATION Blood pressure 154/93 heart rate 68 afebrile and maintaining oxygen saturation on bipap. CONSTITUTIONAL: No apparent distress. HEENT: Head is normocephalic. Pupils are equal, round. Sclerae anicteric. Mucous membranes of the mouth are moist. No JVD. No carotid bruit. Right neck HAMLET drain with dressing in place, left IJ access. CHEST EXAMINATION: Course crackles in the right mid and base, rhonchi on the left. No wheezes. No chest wall tenderness is noted on palpation or with deep breathing. HEART EXAMINATION: Regular rate and rhythm. S1, S2 heard. No murmurs, gallops or rub. ABDOMEN: Soft, nontender. Positive bowel sounds. EXTREMITIES: 2+ peripheral pulses, no lower extremity edema and no calf tenderness. NEUROLOGIC EXAMINATION: Patient is awake, alert and oriented x3. ASSESSMENT Acute hypoxic respiratory failure Cervical spine disease s/p fusion and decompression POD#2 Hypertension Diabetes mellitus COPD Chronic nicotine dependence Daily marijuana use PLAN Obtain baseline EKG. Obtain 2D echocardiogram and doppler study to assess cardiac structure and function. Check NTproBNP. Add atorvastatin 40 mg daily and losartan 25 mg daily. Initiate daily lasix 40 mg, first dose now. Document accurate intake and output along with daily weights. Follow renal function and electrolytes in the morning. We will continue to follow and make recommendations accordingly. Thank you kindly for this consultation. Nurse Practitioner note has been reviewed, I agree with a documented findings and plan of care. Patient was seen and examined. Past Medical History Past Medical History: COPD, Diabetes Mellitus, GERD/Reflux, Hypertension, Musculoskeletal Disorder, Osteoarthritis (OA) Additional Past Medical History / Comment(s): DDD, spondylosis, ivy numbness down both arms to fingers History of Any Multi-Drug Resistant Organisms: MRSA Date of last positivie culture/infection: 1999 MDRO Source:: face Past Surgical History: Appendectomy, Back Surgery, Cholecystectomy, Orthopedic Surgery Additional Past Surgical History / Comment(s): neck fusion bone from hip. back surgery d/t congenital defect. chain saw to face with sutures. COLONOSCOPY Past Anesthesia/Blood Transfusion Reactions: Previous Problems w/ Anesthesia Additional Past Anesthesia/Blood Transfusion Reaction / Comment(s): combative when coming out anesthesia Smoking Status: Current every day smoker - Past Family History Mother Family Medical History: Deep Vein Thrombosis (DVT) Medications and Allergies Home Medications Medication Instructions Recorded Confirmed Type Albuterol Inhaler (Mhu) [Ventolin 1 - 2 puff INHALATION RT-QID PRN 12/21/19 03/07/21 History Hfa Inhaler] Gabapentin 400 mg PO TID 12/21/19 03/08/21 History Hydrocodone/Acetaminophen [[place] 1 tab PO TID 12/21/19 03/07/21 History 7.5-325] Ipratropium/Albuterol Sulfate 1 puff INHALATION RT-QID PRN 12/21/19 03/07/21 History [Combivent Respimat Inhaler] Omeprazole 20 mg PO DAILY 12/21/19 03/07/21 History PARoxetine HCL [Paxil] 40 mg PO DAILY 12/21/19 03/07/21 History amLODIPine [Norvasc] 10 mg PO DAILY 12/21/19 03/07/21 History buPROPion HCL [buPROPion HCL SR] 150 mg PO BID 12/21/19 03/08/21 History metFORMIN HCL [Glucophage] 500 mg PO BID 12/21/19 03/07/21 History methocarbamoL [Methocarbamol] 500 mg PO HS 03/01/21 03/07/21 History Allergies Allergy/AdvReac Type Severity Reaction Status Date / Time No Known Allergies Allergy Verified 03/01/21 10:31 Physical Exam Vitals: Vital Signs Temp Pulse Pulse Resp BP Pulse Ox 03/09/21 08:12 68 03/09/21 08:02 70 03/09/21 06:00 75 22 154/93 100 03/09/21 05:00 77 26 H 183/103 96 03/09/21 04:00 98.3 F 81 86 29 H 150/98 97 03/09/21 03:00 80 27 H 179/95 100 03/09/21 02:00 94 24 171/101 95 03/09/21 01:00 94 27 H 147/101 95 03/09/21 00:00 99.1 F 100 92 26 H 171/88 92 L 03/08/21 23:40 94 21 99 03/08/21 23:00 97 23 150/96 97 03/08/21 22:00 101 H 26 H 164/109 98 03/08/21 21:00 192/99 03/08/21 20:00 98.2 F 87 84 28 H 91 L 03/08/21 19:00 77 31 H 158/107 91 L 03/08/21 18:00 68 26 H 148/84 92 L 03/08/21 17:00 67 33 H 121/78 92 L 03/08/21 16:00 64 27 H 92/79 93 L 03/08/21 15:00 59 L 25 H 113/90 96 03/08/21 14:00 62 27 H 114/77 97 03/08/21 13:00 58 L 21 116/75 93 L 03/08/21 12:27 68 03/08/21 12:15 64 03/08/21 12:00 72 35 H 119/71 94 L 03/08/21 11:00 69 22 142/78 92 L 03/08/21 10:00 72 22 150/90 94 L 03/08/21 09:00 80 26 H 160/97 91 L Intake and Output 03/08/21 03/09/21 03/09/21 22:59 06:59 14:59 Intake Total 820 260 Output Total 1270 660 Balance -450 -400 Intake: IV 760 260 Lactated Ringers 1,000 ml 160 160 @ 20 mls/hr IV .Q24H [facility] Rx#:[id number] Piperacillin-Tazobactam 3 100 100 .375 gm In Sodium Chloride 0.9% 100 ml @ 25 mls/hr IVPB Q8HR [facility] Rx# :[id number] Vancomycin 1,750 mg In 500 Sodium Chloride 0.9% 500 ml 500 ml @ 167 mls/hr IVPB Q12HR [facility] Rx#: [id number] Oral 60 Output: Drainage 30 30 Anterior Neck 0 Posterior Neck 30 30 Urine 1240 630 Other: Voiding Method Indwelling Catheter Indwelling Catheter Weight 105.8 kg Results 03/09/21 06:49 03/09/21 06:49 CBC 03/09/21 Range/Units 06:49 WBC 22.8 H (3.8-10.6) k/uL RBC 4.44 (4.30-5.90) m/uL Hgb 14.5 (13.0-17.5) gm/dL Hct 41.7 (39.0-53.0) % Plt Count 264 (150-450) k/uL Comprehensive Metabolic Panel 03/09/21 Range/Units 06:49 Sodium 137 (137-145) mmol/L Potassium 4.3 (3.5-5.1) mmol/L Chloride 103 (98-107) mmol/L Carbon Dioxide 27 (22-30) mmol/L BUN 24 H (9-20) mg/dL Creatinine 0.58 L (0.66-1.25) mg/dL Glucose 172 H (74-99) mg/dL Calcium 8.9 (8.4-10.2) mg/dL Current Medications Generic Name Dose Route Start Last Admin Trade Name Freq PRN Reason Stop Dose Admin Acetaminophen 1,000 mg 03/07/21 18:00 03/09/21 05:55 Acetaminophen Tab 500 Mg Tab PO Not Given Q6HR [facility] Hydrocodone Bitart/Acetaminophen 1 each 03/07/21 16:08 Hydrocodone/Apap 7.5-325mg 1 Each Tab PO Q6H PRN Pain Albuterol/Ipratropium 3 ml 03/08/21 08:00 03/09/21 08:01 Ipratropium-Albuterol 3 Ml Neb INHALATION 3 ml RT-QID [facility] Administration Bupropion HCl 150 mg 03/08/21 19:00 03/08/21 20:53 Bupropion Sr 150 Mg Tablet.Er PO 150 mg BID [facility] Administration Cyclobenzaprine HCl 10 mg 03/07/21 16:03 03/07/21 23:33 Cyclobenzaprine 10 Mg Tab PO 10 mg TID PRN Administration Muscle Spasm Dexamethasone Sodium Phosphate 4 mg 03/08/21 01:45 03/09/21 02:58 Dexamethasone Sod Phosphate 4 Mg/Ml 1 Ml Vial IV 4 mg Q4HR [facility] Administration Enoxaparin Sodium 40 mg 03/08/21 09:00 03/08/21 08:49 Enoxaparin 40 Mg/0.4 Ml Syringe SQ Not Given DAILY [facility] Gabapentin 400 mg 03/08/21 22:00 03/08/21 21:01 Gabapentin 400 Mg Cap PO 400 mg TID [facility] Administration Hydromorphone HCl 1 mg 03/07/21 16:03 03/08/21 16:10 Hydromorphone 1 Mg/Ml 1 Ml Syringe IVP 1 mg Q3HR PRN Administration Pain Scale of 7 - 10 Hydromorphone HCl 0.5 mg 03/07/21 16:03 Hydromorphone 0.5 Mg/0.5 Ml Syringe IVP Q3HR PRN Pain Scale 4 - 6 Lactated Ringer's 1,000 mls @ 20 mls/hr 03/06/21 15:30 03/08/21 16:20 Lactated Ringers IV 20 mls/hr .Q24H [facility] Administration Piperacillin Sod/Tazobactam 100 mls @ 25 mls/hr 03/08/21 08:00 03/08/21 23:38 Sod 3.375 gm/ Sodium Chloride IVPB 25 mls/hr Q8HR [facility] Administration Vancomycin HCl 1,750 mg/ 500 mls @ 167 mls/hr 03/08/21 18:00 03/09/21 02:58 Sodium Chloride IVPB 167 mls/hr Q8H [facility] Administration Insulin Aspart 0 unit 03/08/21 17:43 03/09/21 06:36 Insulin Aspart (Novolog) 100 Unit/Ml Vial SQ 6 unit ACHS [facility] Administration Protocol Lidocaine HCl 0.1 ml 03/06/21 15:21 03/07/21 06:43 Lidocaine 1% (10mg/Ml) For Iv Start INTRADERMA 0.1 ml PER PROTOCOL PRN Administration IV Start Magnesium Hydroxide 2,400 mg 03/07/21 16:03 Magnesium Hydroxide 2,400 Mg/10 Ml Cup PO DAILY PRN Constipation Miscellaneous Information 1 each 03/08/21 06:42 Potassium Replacement Protocol 1 Each Misc MISCELLANE DAILY PRN Per Protocol Protocol Miscellaneous Information 0 each 03/09/21 09:00 Vancomycin Trough Due 1 Each Misc MISCELLANE 03/09/21 09:01 DIRECTED ONE Ondansetron HCl 4 mg 03/07/21 16:03 Ondansetron 4 Mg/2 Ml Vial IVP Q8HR PRN Nausea And Vomiting Oxycodone HCl 5 mg 03/07/21 16:03 Oxycodone Hcl 5 Mg Tab PO Q4HR PRN Pain Scale 4 - 6 Oxycodone HCl 10 mg 03/07/21 16:03 03/08/21 20:53 Oxycodone Hcl 5 Mg Tab PO 10 mg Q6H PRN Administration Pain Scale 7 - 10 Paroxetine HCl 40 mg 03/08/21 17:15 03/08/21 18:03 Paroxetine 20 Mg Tab PO 40 mg DAILY [facility] Administration Senna/Docusate Sodium 2 each 03/07/21 16:03 Sennosides-Docusate Sodium 1 Each Tab PO DAILY PRN Constipation Intake and Output 03/08/21 03/09/21 03/09/21 22:59 06:59 14:59 Intake Total 820 260 Output Total 1270 660 Balance -450 -400 Intake: IV 760 260 Lactated Ringers 1,000 ml 160 160 @ 20 mls/hr IV .Q24H [facility] Rx#:[id number] Piperacillin-Tazobactam 3 100 100 .375 gm In Sodium Chloride 0.9% 100 ml @ 25 mls/hr IVPB Q8HR [facility] Rx# :[id number] Vancomycin 1,750 mg In 500 Sodium Chloride 0.9% 500 ml 500 ml @ 167 mls/hr IVPB Q12HR [facility] Rx#: [id number] Oral 60 Output: Drainage 30 30 Anterior Neck 0 Posterior Neck 30 30 Urine 1240 630 Other: Voiding Method Indwelling Catheter Indwelling Catheter Weight 105.8 kg 03/09/21 06:49 03/09/21 06:49
[2021-03-09] MEDS ORDERED: LOSARTAN 25 MG TAB PO SCH (10:45)
--- NOTE | 2021-03-09 11:00 | ECHOF ---
Referral Reason:dypnea, post op MEASUREMENTS -------- HEIGHT: 172.7 cm WEIGHT: 105.7 kg BP: RVIDd: 2.6 cm (< 3.3) IVSd: 1.2 cm (0.6 - 1.1) LVIDd: 4.7 cm (3.9 - 5.3) LVPWd: 1.3 cm (0.6 - 1.1) IVSs: 1.5 cm LVIDs: 3.0 cm LVPWs: 1.8 cm Ao Diam: 3.6 cm (2.0 - 3.7) AV Cusp: 2.2 cm (1.5 - 2.6) LA Diam: 3.5 cm (2.7 - 3.8) MV EXCURSION: 15.618 mm (> 18.000) MV EF SLOPE: 99 mm/s (70 - 150) EPSS: 0.8 cm MV E Jatinder: 0.98 m/s MV DecT: 240 ms MV A Jatinder: 0.88 m/s MV E/A Ratio: 1.11 RAP: 5.00 mmHg RVSP: 15.95 mmHg FINDINGS -------- This was a technically difficult study with suboptimal views. The left ventricular size is normal. There is mild concentric left ventricular hypertrophy. Overa ll left ventricular systolic function is normal with, an EF between 55 - 60 %. The right ventricle is normal in size. The left atrial size is normal. The right atrial size is normal. The aortic valve is trileaflet and appears structurally normal. The mitral valve is normal. There is trace mitral regurgitation. The tricuspid valve appears structurally normal. Trace tricuspid regurgitation present. Right trish tricular systolic pressure is normal at < 35 mmHg. There is no pulmonic regurgitation present. The aortic root size is normal. IVC Not well visulized. There is no pericardial effusion. CONCLUSIONS -------- 1. The left ventricular size is normal. 2. There is mild concentric left ventricular hypertrophy. 3. Overall left ventricular systolic function is normal with, an EF between 55 - 60 %. 4. There is trace mitral regurgitation. 5. Trace tricuspid regurgitation present. 6. There is no pericardial effusion. STEEL WELDER: Swati Lino [facility]
[2021-03-09 12:22] LABS: Glucose,Whole Blood 233 mg/dL (75-99)
[2021-03-09] MEDS: HYDROcodone/APAP 7.5-325MG 1 EACH TAB PO PRN ×2 (12:22→22:22)
[2021-03-09] MEDS: ATORVASTATIN 40 MG TAB PO SCH (12:22)
[2021-03-09] MEDS: CYCLOBENZAPRINE 10 MG TAB PO PRN ×2 (12:23→22:22)
[2021-03-09] MEDS: HYDROmorphone 0.5 MG/0.5 ML SYRINGE IVP PRN (14:30)
[2021-03-09] MEDS: LACTATED RINGERS 1,000 ML IV SCH (16:40)
[2021-03-09 17:14] LABS: Glucose,Whole Blood 482 mg/dL (75-99)
--- NOTE | 2021-03-09 17:29 | PN ---
PROGRESS NOTE This patient is a 55-year-old white male who is desaturating into the 70s when he lies flat for a CT scan of his head, neck and chest which was ordered today. He still remains on 15 L of oxygen. He is sitting up in bed, breathing normally, sitting up in a chair, giving appropriate answers. His pain is not under control, /. We are going to get rid of the fast-acting Oxy and give him long-acting Oxy twice a day and stagger it with [place] and tramadol. Remains on broad-spectrum antibiotics. CT scans have been ordered. Lungs are clear. CARDIOVASCULAR: S1, S2. PSYCH: Fair mood and affect. Ejection fraction 55% to 60% on his echo. Possibly he has some aspiration pneumonia of some kind maybe. CT scan has been ordered. He has a history of COPD and nicotine addiction. He is status post spinal surgery. Continues on BiPAP. Pain control as mentioned above. Prognosis guarded. We are treating him for possible aspiration pneumonia. His COVID is negative. Prognosis guarded. Please see further orders. MMODL / IJN: [id number] /
[2021-03-09 20:47] LABS: Glucose,Whole Blood 121 mg/dL (75-99)
[2021-03-09] MEDS: oxyCODONE ER 10 MG TAB.ER.12H PO SCH (21:08)
[2021-03-09] MEDS: VANCOMYCIN 2,000 MG in SODIUM CHLORIDE 0.9% 500 ML 500 ML IVPB SCH (23:08)
[2021-03-10] MEDS: HYDROcodone/APAP 7.5-325MG 1 EACH TAB PO PRN ×3 (05:44→18:39)
[2021-03-10] MEDS: DEXAMETHASONE SOD PHOSPHATE 4 MG/ML 1 ML VIAL IV SCH ×4 (05:48→20:41)
[2021-03-10 06:07] LABS: Basophils % (A) 0 %; Eosinophils % (A) 0 %; HCT 41.4 % (39.0-53.0); HGB 14.1 gm/dL (13.0-17.5); Lymphocytes # (A) 0.8 k/uL (1.0-4.8); Lymphocytes % (A) 5 %; MCH 31.9 pg (25.0-35.0); MCV 93.9 fL (80.0-100.0); Mean Platelet Volume 7.2; Monocytes # (A) 1.1 k/uL (0-1.0); Monocytes % (A) 6 %; Neutrophils # (A) 15.7 k/uL (1.3-7.7); Neutrophils % (A) 88 %; Platelet Count 292 k/uL (150-450); RBC 4.41 m/uL (4.30-5.90); RDW 13.7 % (11.5-15.5); WBC 17.8 k/uL (3.8-10.6)
[2021-03-10] MEDS: ACETAMINOPHEN TAB 500 MG TAB PO SCH ×2 (06:16→11:03)
[2021-03-10 06:22] LABS: ALT 60 U/L (4-49); AST 48 U/L (17-59); African American GFR (CKD) >90 (>60 ml/min/1.73 sqM); Albumin 3.9 g/dL (3.5-5.0); Alkaline Phosphatase 69 U/L (38-126); Anion Gap 6 mmol/L; Blood Urea Nitrogen 29 mg/dL (9-20); Carbon Dioxide 28 mmol/L (22-30); Chloride 102 mmol/L (98-107); Glucose 167 mg/dL (74-99); Non-African American GFR(CKD) >90 (>60 ml/min/1.73 sqM); Sodium 136 mmol/L (137-145); Total Bilirubin 1.8 mg/dL (0.2-1.3); Total Protein 6.4 g/dL (6.3-8.2)
--- NOTE | 2021-03-10 07:52 | XR ---
EXAMINATION TYPE: XR chest 1V portable DATE OF EXAM: 03/10/2021 COMPARISON: 03/09/2020 INDICATION: Short of breath TECHNIQUE: Single frontal view of the chest is obtained. FINDINGS: The heart size is normal. The pulmonary vasculature is normal. Mild infiltrate remains at the left base. Mild infiltrate is along the right diaphragm. Findings hav e improved. The central venous catheter tip is within the superior vena cava region. IMPRESSION: 1. Improving bibasilar infiltrates.
[2021-03-10 08:09] LABS: Glucose,Whole Blood 224 mg/dL (75-99)
[2021-03-10] MEDS: INSULIN ASPART (NovoLOG) 100 UNIT/ML VIAL SQ SCH ×4 (08:10→22:23)
[2021-03-10] MEDS: IPRATROPIUM-ALBUTEROL 3 ML NEB INHALATION SCH ×4 (08:25→21:11)
--- NOTE | 2021-03-10 08:48 | P.PN ---
Subjective Progress Note Date: 03/10/21 Principal diagnosis: Status post C5-C7 ACDF, C2-T2 posterior stabilized fusion, cervical spondylitic myelopathy Patient was evaluated by myself and Dr. Jeffrey today at bedside in the ICU. Patient was sitting up in the hospital chair. He is utilizing nasal cannula for oxygen at this time. He continues to improve. Currently patient is feeling well answering questions adequately. He's having no significant neck pain either anterior or posterior. He denies any acute ch anges in his shortness of breath. He denies any acute chest pain. He denies any worsening symptoms with regards to the numbness and tingling or weakness in the bilateral upper or lower extremities. Objective - Vital Signs Vital signs: Vital Signs Temp 98.3 F 03/10/21 04:00 Pulse 69 03/10/21 08:00 Resp 18 03/10/21 08:00 BP 160/83 03/10/21 08:00 Pulse Ox 97 03/10/21 08:25 Intake & Output 03/09/21 03/10/21 03/10/21 18:59 06:59 18:59 Intake Total 840 240 20 Output Total 1310 630 30 Balance -470 -390 -10 Intake: IV 840 240 20 Lactated Ringers 1,000 ml 240 240 20 @ 20 mls/hr IV .Q24H [facility] Rx#:[id number] Piperacillin-Tazobactam 3 100 .375 gm In Sodium Chloride 0.9% 100 ml @ 25 mls/hr IVPB Q8HR [facility] Rx# :[id number] Vancomycin 1,750 mg In 500 Sodium Chloride 0.9% 500 ml 500 ml @ 167 mls/hr IVPB Q12HR [facility] Rx#: [id number] Output: Drainage 30 Anterior Neck 0 Posterior Neck 30 Urine 1310 600 30 Other: Voiding Method Indwelling Catheter Indwelling Catheter ABP, PAP, CO, CI - Last Documented Arterial Blood Pressure 123/88 - Exam Gen: AOx3, NAD VSS stable at this time Integument: Drains are intact both anterior and posterior. The bandage was changed on the posterior incision, cellerate ointment was then applied. The torsten and sutures are all in good position and condition. There is no active drainage visualized. Palpation: Minimal tenderness with palpation along the paraspinal region of the posterior cervical region. No significant tenderness is appreciated in the anterior neck with palpation ROM: Fullr range of motion is noted in all major muscle groups of the bilateral upper and lower extremities Sensory Exam: Senory exam to light touch is intact C5-T1 Senos[place] exam to light touch is intact L2-S1 Motor: 4-5 strength is appreciated in all major muscle groups in the bilateral upper and lower extremities Reflexes: 3/4 in all upper extremity and lower extremity Positive Philippe's test bilaterally Positive clonus bilaterally - Labs CBC & Chem 7: 03/10/21 05:30 03/10/21 05:30 Labs: Abnormal Lab Results - Last 24 Hours (Table) 03/09/21 03/09/21 03/09/21 Range/Units 12:20 17:12 20:45 WBC (3.8-10.6) k/uL Neutrophils # (1.3-7.7) k/uL Lymphocytes # (1.0-4.8) k/uL Monocytes # (0-1.0) k/uL Sodium (137-145) mmol/L BUN (9-20) mg/dL Glucose (74-99) mg/dL POC Glucose (mg/dL) 233 H 482 H 121 H (75-99) mg/dL Total Bilirubin (0.2-1.3) mg/dL ALT (4-49) U/L 03/10/21 03/10/21 03/10/21 Range/Units 05:30 05:30 08:06 WBC 17.8 H (3.8-10.6) k/uL Neutrophils # 15.7 H (1.3-7.7) k/uL Lymphocytes # 0.8 L (1.0-4.8) k/uL Monocytes # 1.1 H (0-1.0) k/uL Sodium 136 L (137-145) mmol/L BUN 29 H (9-20) mg/dL Glucose 167 H (74-99) mg/dL POC Glucose (mg/dL) 224 H (75-99) mg/dL Total Bilirubin 1.8 H (0.2-1.3) mg/dL ALT 60 H (4-49) U/L Assessment and Plan Assessment: Postop day #2 status post C5-C7 ACDF, C2-T2 posterior stabilized patient Cervical spondylitic myelopathy Other medical comorbidities Plan: Pain control, continue with current medication regimen Will decrease dexamethasone to 2 mg IV q6hr DVT prophylaxis, continue use of PIERRE hose and SCDs, Lovenox can be restarted today Wound care, drains had been changed to under gravity, we'll hopefully remove anterior drain on 03/11/2021. Anticipate discharge of the posterior drain within the next day or 2. PT/OT evaluation, hopeful for patient to ambulate today with the assistance of walker. Hard c-collar must be worn when ambulating Plan to remove urinary catheter today, patient will be able to use bedside urinal for I/O Other medical staff coordinator recommendations We'll continue to follow during inpatient stay Time with Patient: Less than 30
[2021-03-10] MEDS: oxyCODONE ER 10 MG TAB.ER.12H PO SCH ×2 (08:54→20:41)
[2021-03-10] MEDS: GABAPENTIN 400 MG CAP PO SCH ×3 (08:55→22:23)
[2021-03-10] MEDS: LOSARTAN 50 MG TAB PO SCH (08:55)
[2021-03-10] MEDS: VANCOMYCIN 2,000 MG in SODIUM CHLORIDE 0.9% 500 ML 500 ML IVPB SCH ×2 (08:55→15:49)
[2021-03-10] MEDS: ATORVASTATIN 40 MG TAB PO SCH (08:55)
[2021-03-10] MEDS: amLODIPine 10 MG TAB PO SCH (08:55)
[2021-03-10] MEDS: PARoxetine 20 MG TAB PO SCH (08:55)
[2021-03-10] MEDS: PIPERACILLIN-TAZOBACTAM 3.375 GM in SODIUM CHLORIDE 0.9% 100 ML IVPB SCH ×2 (08:56→15:49)
[2021-03-10] MEDS: ENOXAPARIN 40 MG/0.4 ML SYRINGE SQ SCH (08:56)
[2021-03-10] MEDS ORDERED: FUROSEMIDE 10 MG/ML 4 ML VIAL IV SCH (09:00)
[2021-03-10] MEDS: buPROPion SR 150 MG TABLET.ER PO SCH ×2 (09:08→22:21)
--- NOTE | 2021-03-10 10:20 | P.PN ---
Subjective Progress Note Date: 03/10/21 A 65-year-old male patient underwent a multilevel cervical spine fusion C3 through C5 anteriorly and C2 through T2 posteriorly with decompression and the patient is currently postop day #1. Immediately following surgery, the patient was extubated and was brought up today intensive care unit. Postop, there was concern for some increased shortness of breath and poor oxygenation. For that reason the patient was In the intensive care unit overnight. He was desaturating and his pulse ox was as low as 89%. He was given Decadron and he was also placed on a BiPAP for several hours and currently is on oxygen at 6 L per minute nasal cannula. The x-ray of the neck was also done that showed surgical instrumentation throughout the cervical spine with hardware. Surgical drains were over the anterior and the posterior neck. There was small amount of gas in the retropharyngeal space and there was no evidence of any upper airway obstruction. Clinically, the patient does not have any stridor. A repeat chest x-ray was done today and shows smaller lung volumes. The patient's chronic elevation of the right hemidiaphragm. There is increased interstitial markings in the lung bases along with some atelectasis and some possible early infiltration of the left lower lobe. The patient's white cell count is at 29.5 and hemoglobin 14.9. Rest of the blood work is within normal limits. He is known to have COPD and is also known to have obstructive sleep apnea and the patient does not utilize any form of CPAP therapy on outpatient basis. His active problems forpain may need the surgical site and the patient is receiving a combination of dilated 1 mg every 3 hours, Flexeril and oxycodone 10 mg every 6 hours on a when necessary basis. Antibiotic prophylaxis with vancomycin. He is moving all 4 extremities without any limitation. He is admitted diaphoretic and sweaty because of his ongoing pain. No focal neurological deficit. No altered mentation. On 03/09/2021, the patient is on BiPAP. He is postop day #2 following his C- spine surgery and postoperatively developed some increase his fluid distress and hypoxemia along with some restlessness and agitation. For that reason, the meredith ent got admitted to the intensive care unit. I had them on 60 of oxygen by nasal cannula and he was doing relatively okay by yesterday evening and subsequently was placed on BiPAP at the pressures of 14/6 cm of water with an FiO2 of 70%. He is able to generate tidal volumes of 800 mL with a respiration of 22 and a minute ventilation of 20 L per minute. Note that the patient was being treated on and off with BiPAP throughout the day yesterday. The chest x- ray from today showing development of lower lobe active pulmonary infiltrates most consistent with pneumonia/atelectasis. I do not appreciate any fluid. He also has chronic right hemidiaphragmatic elevation. The spine surgeon wanted to get a follow-up CAT scan of his C-spine. He went down to CAT scan and he was unable to lay down flat and the testing was aborted. He was brought back to the ICU. Currently his white cell count of 22.8. The rest of the blood work shows normal renal function, normal electrolytes, the pro-calcitonin level LEVEL WAS AT 0.05. IN ANY RATE, I SUSPECTED PNEUMONIA AND I COVERED THEM WITH with a comb ination of antibiotics including Zosyn and vancomycin. He is afebrile. As stated, the white cell count is mildly elevated at 22.8. He is hemodynamically stable. No hypotension. Neurologically, he is awake and alert and following commands. He is receiving Dilaudid for pain control 1 mg every 3 hours in addition to oxycodone 10 mg every 6 hours. He is also on Flexeril and gabapentin. He is moving all 4 extremities. He has adequate motor function to upper and lower extremities bilaterally. No stridor. He has HAMLET drains in his back and output is 0 mL anterior, 2 50 mL posterior, serosanguineous, bloody. Or 2020, the patient is awake and alert and sitting up on a chair as the patient is postop day #3. Doing much better. No significant respiratory distress. Currently on 10 L of oxygen by nasal cannula. Given diuretics yesterday which also helped him with his overall respiratory status. His follow-up chest x-ray shows improvement in the lower lobe pulmonary infiltration. There is some atelectatic changes still in the lung bases. Overall lung expansions improved on today's chest x-ray. Her net fluid balance over the past 24 hours while being on Lasix has been -890 mL. He is using incentive spirometer. Overnight, he refused the BiPAP. And is currently off the BiPAP for the past 24 hours. He is producing adequate amount of urine output. Still unable to do the CAT scan of the neck because of inability to lay down flat. Antibiotic coverage includes a combination of Zosyn and vancomycin. He is afebrile. His pro-calcitonin level was low at 0.05. He remains in adequate pain control with a combination of Dilaudid and oxycodone. He is also on Flexeril and gabapentin. Moving all 4 extremities. Drains are in place. Output is minimal anteriorly, posterior drain is draining approximately 1 20 mL throughout the night. In terms of the rest of the blood work, the patient has a white cell count of 17.8 with a hemoglobin of 14. Renal function is stable. Objective - Vital Signs Vital signs: Vital Signs Temp 97.4 F L 03/10/21 09:00 Pulse 69 03/10/21 10:00 Resp 15 03/10/21 10:00 BP 148/84 03/10/21 10:00 Pulse Ox 94 L 03/10/21 10:00 Intake & Output 03/09/21 03/10/21 03/10/21 18:59 06:59 18:59 Intake Total 840 240 80 Output Total 1310 630 880 Balance -470 -390 -800 Intake: IV 840 240 80 Lactated Ringers 1,000 ml 240 240 80 @ 20 mls/hr IV .Q24H [facility] Rx#:[id number] Piperacillin-Tazobactam 3 100 .375 gm In Sodium Chloride 0.9% 100 ml @ 25 mls/hr IVPB Q8HR [facility] Rx# :[id number] Vancomycin 1,750 mg In 500 Sodium Chloride 0.9% 500 ml 500 ml @ 167 mls/hr IVPB Q12HR [facility] Rx#: [id number] Output: Drainage 30 Anterior Neck 0 Posterior Neck 30 Urine 1310 600 880 Other: Voiding Method Indwelling Catheter Indwelling Catheter Indwelling Catheter # Bowel Movements 1 ABP, PAP, CO, CI - Last Documented Arterial Blood Pressure 123/88 - Exam Appearance, calm, slightly diaphoretic, he is still in pain and his pain scale is in order of 5/10 at this point in time. His current BMI 38.3. The patient is currently on 10 L of oxygen by nasal cannula. Head exam was generally normal. There was no scleral icterus or corneal arcus. Mucous membranes were moist. Neck examination reveals a triple lumen catheter in his left IJ. The patient has a surgical wound site over the anterior right lateral neck and on his posterior neck. The patient has HAMLET drains bilaterally and output is serosanguineous. No significant swelling in his neck area. No stridor. He does snore while sleeping. Lungs diminished breath sound bilaterally along with some scattered rhonchi he nica throughout the lung simental and there is prolongation of the exhalation phase of breathing. Breath sounds are diminished on the right compared to left. Cardiac exam revealed the PMI to be normally situated and sized. The rhythm was regular and no extrasystoles were noted during several minutes of auscultation. The first and second heart sounds were normal and physiologic splitting of the second heart sound was noted. There were no murmurs, rubs, clicks, or gallops. Abdominal exam revealed normal bowel sounds. The abdomen was soft, non-tender, and without masses, organomegaly, or appreciable enlargement of the abdominal aorta Examination of the extremities revealed easily palpable radial, femoral and pedal pulses. There was no cyanosis, clubbing or edema. Examination of the skin revealed no evidence of significant rashes, suspicious appearing nevi or other concerning lesions. Surgical wound site over the right neck and posterior neck area dry clean and intact. - Labs CBC & Chem 7: 03/10/21 05:30 03/10/21 05:30 Labs: Abnormal Lab Results - Last 24 Hours (Table) 03/09/21 03/09/21 03/09/21 Range/Units 12:20 17:12 20:45 WBC (3.8-10.6) k/uL Neutrophils # (1.3-7.7) k/uL Lymphocytes # (1.0-4.8) k/uL Monocytes # (0-1.0) k/uL Sodium (137-145) mmol/L BUN (9-20) mg/dL Glucose (74-99) mg/dL POC Glucose (mg/dL) 233 H 482 H 121 H (75-99) mg/dL Total Bilirubin (0.2-1.3) mg/dL ALT (4-49) U/L 03/10/21 03/10/21 03/10/21 Range/Units 05:30 05:30 08:06 WBC 17.8 H (3.8-10.6) k/uL Neutrophils # 15.7 H (1.3-7.7) k/uL Lymphocytes # 0.8 L (1.0-4.8) k/uL Monocytes # 1.1 H (0-1.0) k/uL Sodium 136 L (137-145) mmol/L BUN 29 H (9-20) mg/dL Glucose 167 H (74-99) mg/dL POC Glucose (mg/dL) 224 H (75-99) mg/dL Total Bilirubin 1.8 H (0.2-1.3) mg/dL ALT 60 H (4-49) U/L Assessment and Plan Plan: 1 chronic neck pain secondary to cervical spine disease and the patient is post anterior cervical and posterior cervical spine fusion along with decompression. The patient had anterior cervical C3 through C5 fusion and posterior cervical C2 through T2 fusion. The patient is currently postop day #3 2 acute hypoxic respiratory failure. The patient was extubated following surgery and the patient's blood gases showing acute hypoxic respiratory failure. No significant hypercapnia or CO2 retention. Chest x-rays revealing infi ltrates in the lung bases along with chronic right hemidiaphragmatic elevation. As such, his hypoxemia is multifactorial. He has underlying COPD, chronic right hemidiaphragmatic elevation, some COPD exacerbation and new infiltrates in the lower lobes more so on the left could be atelectasis versus aspiration. The patient further improvement with the use of diuretics. He is using incentive spirometer. His currently off the BiPAP at 10 L about 2 by nasal cannula. No stridor. 3 pain secondary to above currently on a combination of oxycodone, Dilaudid and Flexeril of Neurontin 4 COPD 5 obstructive sleep apnea currently on no treatment 6 diabetes mellitus maintained on metformin outpatient basis 7 hypertension 8 osteoarthritis 9 previous history of MRSA infection Plan We'll put the patient on DuoNeb nebulized treatments 4 times a day [id number] Continue Decadron 4 mg every 4 hours IV, may taper off the Decadron dose No signs of any upper airway obstruction at this point in time. Repeat chest x-ray showing improvement in the aeration and atelectatic changes in the lower lobes Check pro calcitonin level came back low Check over 19 by PCR was negative IV Zosyn 3.375 g every 8 hours for possibility of aspiration pneumonia in combination with vancomycin. The pro calcitonin level was negative. Continue pain control with oxycodone and IV Dilaudid. Continue Neurontin flexible Provide the patient incentive spirometer Patient is currently on BiPAP cardiology consult Down the FiO2 down to 50%, we'll place the patient on 8l by nasal cannula and gradually wean it down to maintain a saturation above 90%. May remove the Zavala catheter. DVT prophylaxis with Lovenox We'll continue to follow. HAMLET drain to gravity. The patient can be transferred out of the intensive care unit today.
--- NOTE | 2021-03-10 10:24 | PN ---
PROGRESS NOTE Mr. Molina is a 55-year-old male with a known history of tobacco use, who underwent cervical fusion. Postoperatively and post extubation he became is dyspneic and that persisted. Cardiology consultation was requested. He is feeling much better this morning. He is sitting up in the chair. His breathing is better. He denies any chest pain. He denies any dizziness or palpitation. Hemodynamically, he is stable. His blood pressure is under better control. He had an echocardiogram that revealed a preserved left ventricular size and systolic function with no significant valvular disease. He continues to be at this time on atorvastatin 40 mg daily, amlodipine 10 mg daily. He is on Lasix 40 mg IV q24 hours, Cozaar 25 mg daily. PHYSICAL EXAMINATION: Blood pressure running in the 140s with a heart rate in 60s LUNGS: No wheezes or rales. HEART: Regular rate and rhythm, S1, S2. No S3. No rub appreciated. ABDOMEN: Soft, nontender. EXTREMITIES: No edema. LAB DATA: Revealed a hemoglobin of 14.1, white blood cells 17.8. BUN and creatinine 29 and 0.6. His NT proBNP was 361. IMPRESSION: 1. Respiratory difficulty with no clear evidence of congestive heart failure. Patient did not have fluid overload and some of it could be related to his chronic obstructive lung disease. 2. Status post cervical fusion. 3. Prior history of smoking. 4. History of hypertension. RECOMMENDATION: I will continue IV diuretic for 24 hours. I will increase the dose of his losartan. We will follow his renal function and depending on his progress further recommendation will be made. MMODL / IJN: [id number] /
[2021-03-10] MEDS: CYCLOBENZAPRINE 10 MG TAB PO PRN ×3 (11:03→22:21)
[2021-03-10] MEDS: HYDROmorphone 0.5 MG/0.5 ML SYRINGE IVP PRN ×3 (11:03→17:17)
[2021-03-10] MEDS ORDERED: ACETAMINOPHEN TAB 500 MG TAB PO PRN (11:34)
[2021-03-10 12:18] LABS: Glucose,Whole Blood 161 mg/dL (75-99)
[2021-03-10 17:09] LABS: Glucose,Whole Blood 174 mg/dL (75-99)
[2021-03-10 21:16] LABS: Glucose,Whole Blood 163 mg/dL (75-99)
[2021-03-10] MEDS: LACTATED RINGERS 1,000 ML IV SCH (22:20)
[2021-03-11] MEDS: DEXAMETHASONE SOD PHOSPHATE 4 MG/ML 1 ML VIAL IV SCH ×4 (00:59→08:40)
[2021-03-11] MEDS: HYDROmorphone 0.5 MG/0.5 ML SYRINGE IVP PRN ×2 (01:03→11:19)
[2021-03-11] MEDS: VANCOMYCIN 2,000 MG in SODIUM CHLORIDE 0.9% 500 ML 500 ML IVPB SCH ×4 (01:07→23:13)
[2021-03-11] MEDS: PIPERACILLIN-TAZOBACTAM 3.375 GM in SODIUM CHLORIDE 0.9% 100 ML IVPB SCH ×2 (01:08→08:41)
[2021-03-11] MEDS: HYDROcodone/APAP 7.5-325MG 1 EACH TAB PO PRN ×4 (03:36→21:59)
[2021-03-11 07:13] LABS: Glucose,Whole Blood 179 mg/dL (75-99)
[2021-03-11] MEDS: LOSARTAN 50 MG TAB PO SCH (08:39)
[2021-03-11] MEDS: GABAPENTIN 400 MG CAP PO SCH ×3 (08:39→20:17)
[2021-03-11] MEDS: oxyCODONE ER 10 MG TAB.ER.12H PO SCH ×2 (08:39→20:17)
[2021-03-11] MEDS: amLODIPine 10 MG TAB PO SCH (08:39)
[2021-03-11] MEDS: ENOXAPARIN 40 MG/0.4 ML SYRINGE SQ SCH (08:39)
[2021-03-11] MEDS: buPROPion SR 150 MG TABLET.ER PO SCH ×2 (08:39→20:17)
[2021-03-11] MEDS: INSULIN ASPART (NovoLOG) 100 UNIT/ML VIAL SQ SCH ×4 (08:39→20:16)
[2021-03-11] MEDS: ATORVASTATIN 40 MG TAB PO SCH (08:39)
[2021-03-11] MEDS: PARoxetine 20 MG TAB PO SCH (08:41)
[2021-03-11 08:50] LABS: African American GFR (CKD) >90 (>60 ml/min/1.73 sqM); Anion Gap 7 mmol/L; Blood Urea Nitrogen 33 mg/dL (9-20); Calcium 9.2 mg/dL (8.4-10.2); Carbon Dioxide 31 mmol/L (22-30); Chloride 99 mmol/L (98-107); Glucose 167 mg/dL (74-99); Non-African American GFR(CKD) >90 (>60 ml/min/1.73 sqM); Potassium 4.4 mmol/L (3.5-5.1); Sodium 137 mmol/L (137-145)
[2021-03-11] MEDS: IPRATROPIUM-ALBUTEROL 3 ML NEB INHALATION SCH ×4 (09:38→21:02)
--- NOTE | 2021-03-11 10:03 | P.PN ---
Subjective Progress Note Date: 03/11/21 Principal diagnosis: Cervical Myelopathy Pt s/e this AM. Doing very well and much better than first few pos top days. He is sitting in chair has been up and about. Zavala is out and voiding appropriately. Has had BM. Denies any f/c/sob/cp at this time. Denies any other symptoms. States his arms feel much better and that they are regaining their strength and function. No new numbness/tingling. Denies any perineal numbness/tingling. Denies any UI or BI. Objective - Vital Signs Vital signs: Vital Signs Temp 98.2 F 03/11/21 07:33 Pulse 63 03/11/21 09:38 Resp 18 03/11/21 07:33 BP 132/86 03/11/21 07:33 Pulse Ox 96 03/11/21 09:43 Intake & Output 03/10/21 03/11/21 03/11/21 18:59 06:59 18:59 Intake Total 1400 222 Output Total 2020 Balance -620 222 Weight 109.5 kg Intake: IV 200 Lactated Ringers 1,000 ml 200 @ 20 mls/hr IV .Q24H [facility] Rx#:[id number] Oral 1200 222 Output: Drainage 90 Anterior Neck 30 Posterior Neck 60 Urine 1930 Other: Voiding Method Urinal # Voids 1 # Bowel Movements 1 ABP, PAP, CO, CI - Last Documented Arterial Blood Pressure 123/88 - Exam PHYSICAL EXAMINATION: Vitals: Stable at this time General: Awake, alert, appropriate for age, in no acute distress. HEENT: No unusual neck masses around region of lateral neck triangle, thyroid, supraclavicular groove. Extremities: Skin warm and dry without no acute lesions, coloration, temperature, skin intact, no tenderness or erythema. Integument: Hairy patches: Absent Dorsal skin dimples: Absent [employer] au la[employer] spots: Absent Surgical incisions: Clean and dry Palpation: Please see Pain drawing on Intake sheet for further detail. (Tenderness = T, Nontender = NT, Swelling = S, Ecchymosis = E) Findings on Midline and paraspinal palpation and percussion: Cervical: minor TTP Thoracic: NT Lumbar: NT Sacral: NT Special findings: No hematoma no large swelling no masses anterior no tracheal deviation VASCULAR STATUS : Wrist Pulses: 2/4 bilateral radial and ulnar Pedal Pulses: 2/4 bilateral DP and PT Color: Normal Edema: None NEUROLOGIC EXAMINATION: Mental Status: Awake and alert, fully oriented, with normal attention, concentration and memory, and fluent, appropriate speech. Cranial Nerves: I: Olfactory not tested. II: Visual acuity normal, no visual field deficit noted with confrontation. III,IV: Normal pupillary reflexes & intact extraocular movements without nystagmus. V,: Intact symmetrical facial sensation. VII: Intact symmetrical facial motor movement VIII: Hearing intact. IX,X: Intact gag, swallow, & normal voice. XI: Sternocleidomastoid, trapezius function intact. XII: Tongue midline with normal movements. Motor Exam (0-5/5, N/T) STRENGTH UPPER EXTREMITY Shoulder Abd (Not part of ROSY Motor score): RIGHT 4 LEFT 4 Elbow Flexors: RIGHT 4 LEFT 4 Elbow Extensor: RIGHT 4 LEFT 4 Wrrist Dorsiflexors: RIGHT 4 LEFT 4 Finger Abductor: RIGHT 4 LEFT 4 Relationship Mgr: RIGHT 4 LEFT 4 LOWER EXTREMITY Hip Flexor (Not part of ROSY Motor Score): RIGHT 4 LEFT 4 Knee Flexor: RIGHT 4 LEFT 4 Knee Extensor: RIGHT 4 LEFT 4 Ankle Dorsiflexion: RIGHT 4 LEFT 4 Ankle Plantarflexion: RIGHT 4 LEFT 4 EHL: RIGHT 4 LEFT 4 FHL: RIGHT 4 LEFT 4 Somewhat generalized weakness right now however no focal deficits and patient states he feels like he is improving and getting stronger. REFLEXES Biecp: RIGHT 3 LEFT 3 Tricep: RIGHT 3 LEFT 3 Brachioradialis: RIGHT 3 LEFT 3 Patellar: RIGHT 3 LEFT 3 Achilles: RIGHT 3 LEFT 3 Pathological Reflexes Ramirez's: RIGHT present LEFT Present much improved and less brisk than previously. Babinski: RIGHT down going LEFT down going Clonus: RIGHT ten-12 beats LEFT 10-12 beats improving. Less brisk. SENSORY Joint Position: Intact bilaterally Vibration Intact bilaterally Pain and LT sense Intact C5-T1 and L2-S1 Dermatomal deficit None Gait and Functional Evaluation: Difficulty with hand and finger dexterity still. Disdiadochokinesis examination positive bilaterally. - Labs CBC & Chem 7: 03/10/21 05:30 03/11/21 07:57 Labs: Abnormal Lab Results - Last 24 Hours (Table) 03/10/21 03/10/21 03/10/21 Range/Units 12:07 17:07 21:15 Carbon Dioxide (22-30) mmol/L BUN (9-20) mg/dL Creatinine (0.66-1.25) mg/dL Glucose (74-99) mg/dL POC Glucose (mg/dL) 161 H 174 H 163 H (75-99) mg/dL 03/11/21 03/11/21 Range/Units 07:11 07:57 Carbon Dioxide 31 H (22-30) mmol/L BUN 33 H (9-20) mg/dL Creatinine 0.65 L (0.66-1.25) mg/dL Glucose 167 H (74-99) mg/dL POC Glucose (mg/dL) 179 H (75-99) mg/dL Assessment and Plan Assessment: 55 yo male POD4 Revision fusion C3-7 with Posterior C2-T2 decompression fusion. for cervical spondylotic mylopathy. 1. s/p C5-7 ACDF with adjacent segment disease C3-5 2. Cervical spondylitic myelopathy 3. B/L UE weakness 4. B/L LE weakness Plan: -Appreciate medicine, cardio and pulmonary management. Symptom Control: -Pain control: Adequate at this time -Flexeril 10 3 times a day -Stop decadron Pending tests: -Aggressive ambulation protocol. OOB with all meals. OOB or in chair 4-5x daily. -PT/OT -Hard C collar when up and about. NO need when sleeping or sitting still. Prophylaxis: -TEDs, SCDs, mechanical ppx. Early ambulation is best. -GI ppx. -Lovenox Imaging/labs: -Computed tomography scan of the cervical spine pending at this time, He has been unable to lay flat for CT of C spine post op. We will attempt one more time today. -Trend labs as appropriate Intervention: PT OT CT scan attempt today Anterior drain DC DC posterior tomorrow Cont vanco/zosyn Case management eval and set up for home care Dispo: Home with home care tomorrow 03/12
[2021-03-11] MEDS: FUROSEMIDE 20 MG TAB PO SCH (10:10)
[2021-03-11 12:05] LABS: Glucose,Whole Blood 164 mg/dL (75-99)
--- NOTE | 2021-03-11 14:08 | CT ---
EXAMINATION TYPE: CT cervical spine wo con DATE OF EXAM: 03/11/2021 COMPARISON: CT cervical spine February 13, 2021 HISTORY: S/P Cervical Fusion CT DLP: 806.2 mGycm. Automated Exposure Control for Dose Reduction was Utilized. TECHNIQUE: CT scan of the cervical spine is obtained without contrast, axial images are obtained, sa gittal and coronal reformatted images are also reviewed. FINDINGS: There is new long segment posterior fusion hardware running from C2 level through the T2 ve rtebra bilaterally. There is persistent anterior fusion plate with ossific fusion involving the C5-C7 vertebra. There is new anterior fusion hardware and metallic disc material at C3-C4 and C4-C5 levels on current study. There is long segment spinous process resection. Spinal canal grossly preserved. A lignment is straightened and satisfactory. Axial images redemonstrate multilevel uncovertebral facet degenerative changes contributing to multil evel bilateral neural foraminal narrowing. There is posterior percutaneous drainage catheter terminat ing at the posterior C3 level. There is artifact from extensive metallic hardware. There is more foca l posterior fluid collection in the upper thoracic spine axial image 97 for reference along the poste rior incision. Overlying vertical skin torsten noted. Visualized lung apices show groundglass opaciti es without pneumothorax. Respiratory motion artifact degradation is present. IMPRESSION: As above.
--- NOTE | 2021-03-11 14:20 | P.PN ---
Subjective Progress Note Date: 03/11/21 A 65-year-old male patient underwent a multilevel cervical spine fusion C3 through C5 anteriorly and C2 through T2 posteriorly with decompression and the patient is currently postop day #1. Immediately following surgery, the patient was extubated and was brought up today intensive care unit. Postop, there was concern for some increased shortness of breath and poor oxygenation. For that reason the patient was In the intensive care unit overnight. He was desaturating and his pulse ox was as low as 89%. He was given Decadron and he was also placed on a BiPAP for several hours and currently is on oxygen at 6 L per minute nasal cannula. The x-ray of the neck was also done that showed surgical instrumentation throughout the cervical spine with hardware. Surgical drains were over the anterior and the posterior neck. There was small amount of gas in the retropharyngeal space and there was no evidence of any upper airway obstruction. Clinically, the patient does not have any stridor. A repeat chest x-ray was done today and shows smaller lung volumes. The patient's chronic elevation of the right hemidiaphragm. There is increased interstitial markings in the lung bases along with some atelectasis and some possible early infiltration of the left lower lobe. The patient's white cell count is at 29.5 and hemoglobin 14.9. Rest of the blood work is within normal limits. He is known to have COPD and is also known to have obstructive sleep apnea and the patient does not utilize any form of CPAP therapy on outpatient basis. His active problems forpain may need the surgical site and the patient is receiving a combination of dilated 1 mg every 3 hours, Flexeril and oxycodone 10 mg every 6 hours on a when necessary basis. Antibiotic prophylaxis with vancomycin. He is moving all 4 extremities without any limitation. He is admitted diaphoretic and sweaty because of his ongoing pain. No focal neurological deficit. No altered mentation. On 03/09/2021, the patient is on BiPAP. He is postop day #2 following his C- spine surgery and postoperatively developed some increase his fluid distress and hypoxemia along with some restlessness and agitation. For that reason, the patient got admitted to the intensive care unit. I had them on 60 of oxygen by nasal cannula and he was doing relatively okay by yesterday evening and subsequently was placed on BiPAP at the pressures of 14/6 cm of water with an FiO2 of 70%. He is able to generate tidal volumes of 800 mL with a respiration of 22 and a minute ventilation of 20 L per minute. Note that the patient was being treated on and off with BiPAP throughout the day yesterday. The chest x- ray from today showing development of lower lobe active pulmonary infiltrates most consistent with pneumonia/atelectasis. I do not appreciate any fluid. He also has chronic right hemidiaphragmatic elevation. The spine surgeon wanted to get a follow-up CAT scan of his C-spine. He went down to CAT scan and he was unable to lay down flat and the testing was aborted. He was brought back to the ICU. Currently his white cell count of 22.8. The rest of the blood work shows normal renal function, normal electrolytes, the pro-calcitonin level LEVEL WAS AT 0.05. IN ANY RATE, I SUSPECTED PNEUMONIA AND I COVERED THEM WITH with a combination of antibiotics including Zosyn and vancomycin. He is afebrile. As stated, the white cell count is mildly elevated at 22.8. He is hemodynamically stable. No hypotension. Neurologically, he is awake and alert and following commands. He is receiving Dilaudid for pain control 1 mg every 3 hours in addition to oxycodone 10 mg every 6 hours. He is also on Flexeril and gabapentin. He is moving all 4 extremities. He has adequate motor function to upper and lower extremities bilaterally. No stridor. He has HAMLET drains in his back and output is 0 mL anterior, 2 50 mL posterior, serosanguineous, bloody. Or 2020, the patient is awake and alert and sitting up on a chair as the patient is postop day #3. Doing much better. No significant respiratory distress. Currently on 10 L of oxygen by nasal cannula. Given diuretics yesterday which also helped him with his overall respiratory status. His follow-up chest x-ray shows improvement in the lower lobe pulmonary infiltration. There is some atelectatic changes still in the lung bases. Overall lung expansions improved on today's chest x-ray. Her net fluid balance over the past 24 hours while being on Lasix has been -890 mL. He is using incentive spirometer. Overnight, he refused the BiPAP. And is currently off the BiPAP for the past 24 hours. He is producing adequate amount of urine output. Still unable to do the CAT scan of the neck because of inability to lay down flat. Antibiotic coverage includes a combination of Zosyn and vancomycin. He is afebrile. His pro-calcitonin level was low at 0.05. He remains in adequate pain control with a combination of Dilaudid and oxycodone. He is also on Flexeril and gabapentin. Moving all 4 extremities. Drains are in place. Output is minimal anteriorly, posterior drain is draining approximately 1 20 mL throughout the night. In terms of the rest of the blood work, the patient has a white cell count of 17.8 with a hemoglobin of 14. Renal function is stable. On 03/11/2021 patient seen in follow-up on medical surgical floor, today is postoperative day #4, status post multilevel cervical spine fusion. he is doing very well, currently on room air, satting 94%, he is afebrile, lung sounds are clear to auscultation, he is working on his incentive spirometer, doing well, no altered mentation, no confusional agitation, he is sitting up in the chair, eating lunch, he responded well to diuretics, his oxygen was weaned off, and we canceled CTA chest. His echocardiogram has been reviewed showing preserved LV function. Renal function is stable, today's labs have been reviewed, patient remains on a combination of Zosyn and vancomycin. His had no fever or chills, last white blood cell count was trending down, was down to 17.8, hemoglobin was 14.1. Despite calcitonin level was negative at 0.05. Objective - Vital Signs Vital signs: Vital Signs Temp 98.2 F 03/11/21 07:33 Pulse 63 03/11/21 09:38 Resp 18 03/11/21 07:33 BP 132/86 03/11/21 07:33 Pulse Ox 94 L 03/11/21 11:22 Intake & Output 03/10/21 03/11/21 03/11/21 18:59 06:59 18:59 Intake Total 1400 222 600 Output Total 2019 Balance -620 222 600 Weight 109.5 kg Intake: IV 200 600 Lactated Ringers 1,000 ml 200 @ 20 mls/hr IV .Q24H [facility] Rx#:[id number] Piperacillin-Tazobactam 3 100 .375 gm In Sodium Chloride 0.9% 100 ml @ 25 mls/hr IVPB Q8HR [facility] Rx# :[id number] Vancomycin 2,000 mg In 500 Sodium Chloride 0.9% 500 ml 500 ml @ 167 mls/hr IVPB Q8H [facility] Rx#: [id number] Oral 1200 222 Output: Drainage 90 Anterior Neck 30 Posterior Neck 60 Urine 1930 Other: Voiding Method Urinal # Voids 1 # Bowel Movements 1 ABP, PAP, CO, CI - Last Documented Arterial Blood Pressure 123/88 - Exam GENERAL EXAM: Alert, very pleasant, 55-year-old white male, sitting up in the chair, eating lunch, he is currently on room air, comfortable, room air pulse ox is 94% comfortable in no apparent distress. HEAD: Normocephalic/atraumatic. EYES: Normal reaction of pupils, equal size. Conjunctiva pink, sclera white. NOSE: Clear with pink turbinates. THROAT: No erythema or exudates. NECK: No masses, no JVD, no thyroid enlargement, no adenopathy. Patient has a surgical incision on the back of his neck, covered with a dressing, there is a HAMLET drain with minimal amount of serosanguineous output CHEST: No chest wall deformity. Symmetrical expansion. LUNGS: Equal air entry with no crackles, wheeze, rhonchi or dullness. CVS: Regular rate and rhythm, normal S1 and S2, no gallops, no murmurs, no rubs ABDOMEN: Soft, nontender. No hepatosplenomegaly, normal bowel sounds, no guarding or rigidity. EXTREMITIES: No clubbing, no edema, no cyanosis, 2+ pulses and upper and lower extremities. MUSCULOSKELETAL: Muscle strength and tone normal. SPINE: No scoliosis or deformity SKIN: No rashes CENTRAL NERVOUS SYSTEM: Alert and oriented -3. No focal deficits, tone is normal in all 4 extremities. PSYCHIATRIC: Alert and oriented -3. Appropriate affect. Intact judgment and insight. - Labs CBC & Chem 7: 03/10/21 05:30 03/11/21 07:57 Labs: Abnormal Lab Results - Last 24 Hours (Table) 03/10/21 03/10/21 03/11/21 Range/Units 17:07 21:15 07:11 Carbon Dioxide (22-30) mmol/L BUN (9-20) mg/dL Creatinine (0.66-1.25) mg/dL Glucose (74-99) mg/dL POC Glucose (mg/dL) 174 H 163 H 179 H (75-99) mg/dL 03/11/21 03/11/21 Range/Units 07:57 12:02 Carbon Dioxide 31 H (22-30) mmol/L BUN 33 H (9-20) mg/dL Creatinine 0.65 L (0.66-1.25) mg/dL Glucose 167 H (74-99) mg/dL POC Glucose (mg/dL) 164 H (75-99) mg/dL Assessment and Plan Plan: 1 chronic neck pain secondary to cervical spine disease and the patient is post anterior cervical and posterior cervical spine fusion along with decompression. The patient had anterior cervical C3 through C5 fusion and posterior cervical C2 through T2 fusion. The patient is currently postop day #4 2 acute hypoxic respiratory failure. The patient was extubated following surgery and the patient's blood gases showing acute hypoxic respiratory failure. No significant hypercapnia or CO2 retention. Chest x-rays revealing infiltrates in the lung bases along with chronic right hemidiaphragmatic e levation. As such, his hypoxemia is multifactorial. He has underlying COPD, chronic right hemidiaphragmatic elevation, some COPD exacerbation and new infiltrates in the lower lobes more so on the left could be atelectasis versus aspiration. The patient further improvement with the use of diuretics. He is using incentive spirometer. His currently off the BiPAP at 10 L about 2 by nasal cannula. No stridor. 3 pain secondary to above currently on a combination of oxycodone, Dilaudid and Flexeril of Neurontin 4 COPD 5 obstructive sleep apnea currently on no treatment 6 diabetes mellitus maintained on metformin outpatient basis 7 hypertension 8 osteoarthritis 9 previous history of MRSA infection Plan: Patient is currently on room air Maintaining stable O2 saturations Continue oral diuretics Procalcitonin level was low Discontinue antibiotics Clinical stable Anticipated discharge home in the next 24 hours I performed a history & physical examination of the patient and discussed their management with my nurse practitioner, Manda Vaca. I reviewed the nurse practitioner's note and agree with the documented findings and plan of care. Lung sounds are positive for diminished breath sounds The findings and the impression was discussed with the patient. I attest to the documentation by the nurse practitioner. Time with Patient: Less than 30
[2021-03-11] MEDS: LACTATED RINGERS 1,000 ML IV SCH (15:31)
[2021-03-11 16:34] LABS: Glucose,Whole Blood 174 mg/dL (75-99)
--- NOTE | 2021-03-11 17:37 | PN ---
PROGRESS NOTE 55-year-old white male, examined in ICU on 03/10/2021. He is breathing better. He is on 4 L oxygen. He is sitting up in bed. He says his arms have no numbness and tingling. He feels much better. He can tell his surgery helped him. Blood pressure 130s over 80s, pulse 60s, respiratory 18, O2 is 96 on 2-4 L, temp 98.2. LUNGS show scattered rhonchi and wheeze. CARDIOVASCULAR S1, S2. GI soft. ASSESSMENT: 1. Nicotine addiction. 2. Chronic obstructive pulmonary disease exacerbation, status post surgical laminectomy. 3. Cranial nerves are intact. 4. White count 17.8 secondary to possible aspiration pneumonia. 5. He has some prerenal renal azotemia secondary to dehydration. 6. Continue oral intake, fluids, antibiotics. 7. Prognosis guarded. The patient is getting better, was sent out of the ICU on 03/10/2021. MMODL / MAULIKN: [id number] /
--- NOTE | 2021-03-11 17:46 | PN ---
PROGRESS NOTE 55-year-old white male on room air. Sitting up in on the 3rd floor, doing well. O2 saturation 91-94 on room air, pulse 65, respiratory 16 to 18, blood pressure 128/75, temp 98.4. CARDIOVASCULAR S1-S2. LUNGS clear. GI soft. HEMATOLOGY: Negative Homans. PSYCH: Fair mood and affect. ASSESSMENT: 1. Status post cervical decompression. 2. Chronic obstructive pulmonary disease. 3. Nicotine addiction. 4. Possible aspiration pneumonia. He will possibly be able to be discharged home in the morning as he is doing much better. He is back on room air now. Sating in the 90s. Possible discharge home tomorrow. MMODL / IJN: [id number] /
[2021-03-11 20:10] LABS: Glucose,Whole Blood 158 mg/dL (75-99)
[2021-03-12] MEDS: HYDROcodone/APAP 7.5-325MG 1 EACH TAB PO PRN (05:08)
[2021-03-12 07:01] LABS: Glucose,Whole Blood 94 mg/dL (75-99)
[2021-03-12] MEDS: INSULIN ASPART (NovoLOG) 100 UNIT/ML VIAL SQ SCH ×2 (07:17→11:46)
[2021-03-12] MEDS: ENOXAPARIN 40 MG/0.4 ML SYRINGE SQ SCH (07:42)
[2021-03-12] MEDS: GABAPENTIN 400 MG CAP PO SCH (07:43)
[2021-03-12] MEDS: ATORVASTATIN 40 MG TAB PO SCH (07:43)
[2021-03-12] MEDS: PARoxetine 20 MG TAB PO SCH (07:43)
[2021-03-12] MEDS: VANCOMYCIN 2,000 MG in SODIUM CHLORIDE 0.9% 500 ML 500 ML IVPB SCH (07:43)
[2021-03-12] MEDS: FUROSEMIDE 20 MG TAB PO SCH (07:43)
[2021-03-12] MEDS: oxyCODONE ER 10 MG TAB.ER.12H PO SCH (07:43)
[2021-03-12] MEDS: LOSARTAN 50 MG TAB PO SCH (07:43)
[2021-03-12] MEDS: amLODIPine 10 MG TAB PO SCH (07:43)
[2021-03-12] MEDS: buPROPion SR 150 MG TABLET.ER PO SCH (07:43)
[2021-03-12 07:53] LABS: African American GFR (CKD) >90 (>60 ml/min/1.73 sqM); Non-African American GFR(CKD) >90 (>60 ml/min/1.73 sqM)
[2021-03-12 08:24] VITALS: BP 159/91; PULSE 51; RESP 17; TEMP 98.1
[2021-03-12] MEDS: IPRATROPIUM-ALBUTEROL 3 ML NEB INHALATION SCH ×2 (08:33→13:02)
[2021-03-12] MEDS: HYDROmorphone 0.5 MG/0.5 ML SYRINGE IVP PRN (09:29)
[2021-03-12 11:22] LABS: Basophils # (A) 0.01 X 10*3/uL (0.00-0.10); Basophils % (A) 0.1 %; Eosinophils % (A) 1.8 %; HGB 12.5 g/dL (13.0-17.0); Lymphocytes # (A) 2.37 X 10*3/uL (0.90-5.00); Lymphocytes % (A) 21.9 %; MCH 31.3 pg (27.0-32.0); MCHC 32.1 g/dL (32.0-37.0); MCV 97.5 fL (80.0-97.0); Mean Platelet Volume 9.3 fL (9.5-12.2); Monocytes # (A) 0.99 X 10*3/uL (0.20-1.00); Monocytes % (A) 9.1 %; Neutrophils # (A) 7.13 X 10*3/uL (1.80-7.70); Neutrophils % (A) 65.8 %; Platelet Count 303 X 10*3/uL (140-440); RDW 14.3 % (11.5-14.5); WBC 10.84 X 10*3/uL (4.50-10.00)
[2021-03-12 11:44] LABS: Glucose,Whole Blood 119 mg/dL (75-99)
--- NOTE | 2021-03-12 12:00 | P.DS ---
Providers Date of admission: 03/07/21 05:40 Expected date of discharge: 03/12/21 Attending physician: Kenny Jeffrey DO Consults: 03/07/21 16:03 Consult Physician Routine Consulting Provider: Deuce Brito Consult Reason/Comments: medical management Do you want consulting provider notified?: Yes 03/07/21 17:38 Consult Physician Routine Consulting Provider: Marine Ramírez Consult Reason/Comments: icu management Do you want consulting provider notified?: Yes 03/09/21 08:08 Consult Physician Routine Consulting Provider: Antony Menard Consult Reason/Comments: Evaluate heart function Do you want consulting provider notified?: Already Contacted Primary care physician: Deuce Brito [facility] Course: Date of admission: 03/07/2021 Date of discharge: 03/12/2021 Admission diagnosis: Cervical myelopathy Discharge diagnosis: Same Attending physician: Dr. Jeffrey Surgical procedures: Revision fusion C3-7 with Posterior C2-T2 decompression fusion; C5-7 ACDF Brief history: Patient is a 55-year-old male with a history of cervical myelopathy. At this point patient has failed conservative treatment measures and has opted to proceed with a elective Revision fusion C3-7 with Posterior C2- T2 decompression fusion; C5-7 ACDF. Hospital course: Details of patient's surgery can be found in operative report. Patient tolerated the procedure well and was subsequently transported to orthopedic floor. Patient's orthopeidc and medical care was provided daily. Patient had daily laboratory tests performed for evaluation of overall blood counts. Patient had daily physical therapy to include strengthening range of motion as well as education with walker ambulation. Patient was treated with Lovenox for their postoperative DVT prophylaxis during their inpatient stay. Patient was noted to have a relatively uneventful postoperative course. Patient reported satisfactory pain control with oral pain medications by postoperative day 5. Patient showed satisfactory progress with physical therapy. Patient moved steadily through the program and had no difficulty meeting the goals by postoperative day 5. Given patient's otherwise satisfactory course and having met physical therapy goals, plan is to discharge patient home on postoperative day 5. Discharge condition/disposition: Patient will be discharged home in stable condition. Discharge medications: Instructions are given on resumption of patient's normal daily medications per primary care recommendation, in addition patient will be prescribed oxycodone 10 mg ER; Flexeril 10 mg; gabapentin 400 mg; senna.. Spine Discharge and Recovery Instructions Medications: See medication list All medication refills should be obtained through your primary care doctor or your clinic spine surgeon. Please discuss prescription refills at your follow up appointment. Do not call the hospital for medication refills. Dressing: Leave your dressing in place for a total of 5 days post operatively. Then you may remove your dressing and leave open to air. Keep the area clean and if not able to keep area clean, then cover with sterile gauze and tape. Showering: You may shower 3 days after your procedure allowing soap and water to run over incision. Do not scrub. Do not soak. Blot dry. Follow up: Please confirm a follow up appointment with your surgeon 3 weeks post operatively. Please make an appointment to follow up with your PCP in 1-2 weeks after surgery for evaluation 3 phase, 3-week plan POST OP WEEKS 1-3 1. Lifting/carrying/pushing/pulling limited to less than 5 pounds. 2. Do not sit for longer than 15 minutes at one time. Get up and walk around. Prolonged sitting is NOT advised. If you lay down, see if you can tolerate laying down on you front (belly side) 3. Walk for periods of 15 minutes = 1 mile but no longer; do it multiple times times each day. 4. Ice your low back after activity. POST OP WEEKS 3-6 1. Lifting limited to less than 20 pounds. 2. Do not sit for longer than 30 minutes at a time. Frequently change positions. Use a sit-to stand workstation or take frequent breaks from sitting if you have returned to work. 3. Walk for 30 minutes each day. If possible, do these three or more times a day POST OP WEEKS 6+ At your 6-week appointment we will give you a physical therapy referral to focus on a core stabilization and strengthening program. You should also work on leg & buttock strengthening, hamstring & quadriceps stretching, and continue a low impact aerobic activity program such as swimming, walking, or riding a stationary bicycle. During the initial 6 weeks after your surgery, you are at the highest risk of re-injuring your spine. You should generally avoid BLTs (bending, lifting and twisting combination motions) and follow the above guidelines to reduce the chance of reinjury. You can anticipate post op appointments in our office at approximately 3 weeks and 6 weeks after your surgery. INCISION CARE: If your incision is not draining you do NOT need to cover it with a dressing. Keep your incision clean, dry and intact. In most cases, we apply skin glue, torsten or sutures to the incision at the time of surgery. This will be like a crust or have the appearance of a scab and will fall off in time on its own. The stitches or torsten need to be removed at 3 weeks post op appointment. You may begin to shower 3 days after surgery (this allows the glue to holden well). However, please avoid scrubbing the incision site or peeling off any of the skin glue. This will ensure optimal healing of your incision. Also, during this time avoid soaking the incision area in water - this includes swimming pools, hot tubs or baths. No ointments, lotions or oils on the incision until your surgeon allows. Leave torsten, sutures or glue in place. Neurological dysfunction that comes on suddenly can also be a sign of a stroke. Below some common symptoms of a stroke are listed: B - balance difficulty such as sudden onset walking or leaning to one side - NEW E - eye problem such as sudden double vision or trouble seeing on one side - NEW F - Facial weakness or numbness on one side - NEW A - Arm or leg weakness or numbness on one side - NEW S - Slurred speech or difficulty with word finding - NEW T - Time is BRAIN! Call 911 as soon as you recognize these symptoms Diet: Consume a regular diet rich in vegetables and lean protein such as chicken or fish. You should consume in a ratio of approximately 20% fats|40% carbohydrates|40%protein. Vegetables, sweet potatoes, brown rice or quinoa are examples of good carbohydrates. Chips, white bread, cookies and sweets/sugar are examples of bad carbohydrates. Limit your bad carbs, go wild with good carbs. "Life's Simple 7" Guidelines as per [place] [employer] These will help you reclaim your life after surgery and vessel scrapper helper in your recovery, keeping in mind your restrictions. (1) Get Active. Physical activity can help people lose weight, control high blood pressure and cholesterol, feel emotionally better, and sleep better. (2) Control Cholesterol. Avoid a diet high in saturated fat, trans fat, & chol esterol. Limit whole milk & cream, ice cream, butter, egg yolks, processed meats (like sausage and hot dogs), and fatty meats. Choose healthy foods that are low in saturated fat, trans fat and cholesterol which include: Fruits and vegetables, fiber rich grain products (like whole grain pasta and brown rice), lean meat such as chicken, fish, nuts, seeds, and legumes. (3) Eat Better. Eat small portions. Shop at the grocery with a list and do not stray from it. Tips for a healthy diet include: Limit sodium intake to less than 1500mg daily, avoid prepackaged, processed, and fast foods, choose a diet rich in fruits, vegetables, and whole grain, high fiber foods, and limit saturated & cholesterol in your diet. (4) Manage Blood Pressure. If you have high blood pressure, you should have a cuff at home so that you can check your blood pressure regularly. Be sure you have a good cuff. An arm one is generally better than a wrist one. Bring the cuff to a doctor's appointment to validate that the measurements that your cuff are taking are accurate. Take your blood pressure twice daily when you are sitting down and relaxing. Record the numbers in a log and bring this log with you to your doctors' appointments. (5) Lose Weight if your BMI is above 25. A healthy BMI is between 19-25. To calculate Your BMI, you may use a Standard BMI Calculator on the NIH BMI websi te: <www.nhlbi.nih.gov/guidelines/obesity/BMI/bmicalc.htm>. Weigh oneself daily. If you are overweight, set a goal to lose weight. A pound a week loss if needed is a good target. (6) Reduce Blood Sugar. Limit foods and liquids with "added sugars." (Added sugars include sucrose, fructose, glucose, maltose, dextrose, high fructose corn syrup, corn syrup, concentrated fruit juice and honey). (7) Stop Smoking. If you smoke, quitting smoking is one of the best things that you can do for your health. Smoking increases your risk of heart attack, stroke, and peripheral vascular disease, which is a build-up of plaque in your arteries. Please discard all the cigarettes and lighters in your house. Have a plan for what you will do when you have the urge to smoke. Direct and second-hand smoke shortens your life as well as the lives of your family, friends and others around you. For your health and the health of those around you, please consider quitting! Proper Bending Body Mechanics: Maintain a wide stance with one foot slightly in front of the other. Keep your back straight. Bend utilizing the strength in your hips and knees. Do not bend at the waist. Maintain the lifted object at your waist-level close to your body. Avoid lifting weight that causes immediately pain or pain anywhere in the body afterwards. Smoking/Nicotine If there was ever one thing that you could do to increase your overall health, decrease your risk of cardiovascular problems by about 39% the second you make the choice, it is to STOP SMOKING. Your body's most instant gratification is the second you stop smoking. We have all heard the studies, read the articles but it is true, smoking is extremely bad for your overall health, and moreover it is detrimental to your bone health. Nicotine, IN ANY FORM, kills bone cells, prevents your body from healing fractures, and significantly prolongs healing after surgery. In spine surgery specifically, it increases your risk of not healing your bones to create a fusion and increases your risk of having a revision surgery due to this up to 60%. I know it is hard. I know it feels impossible. But there are ways. Take control of your life. We are here to help you through it. And when you are ready, ask us and we can direct you to help if you desire. Use the START Plan to Quit Smoking (please visit the Helpguide.org website listed below for more information): S = Set a quit date. Choose a date within the next 2 weeks, so you have enough time to prepare without losing your motivation to quit. If you mainly smoke at work, quit on the weekend, so you have a few days to adjust to the change. T = Tell family, friends, and co-workers that you plan to quit. Let your friends and family in on your plan to quit smoking and tell them you need their support and encouragement to stop. Look for a quit alistair who wants to stop smoking as well. You can help each other get through the rough times. A = Anticipate and plan for the challenges you'll face while quitting. Most people who begin smoking again do so within the first 3 months. You can help yourself make it through by preparing ahead for common challenges, such as nicotine withdrawal and cigarette cravings. R = Remove cigarettes and other tobacco products from your home, car, and work. Throw away all your cigarettes (no emergency pack!), lighters, ashtrays, and matches. Wash your clothes and freshen up anything that smells like smoke. Shampoo your car, clean your drapes and carpet, and steam your furniture. T = Talk to your doctor about getting help to quit. Your doctor can prescribe medication to help with withdrawal and suggest other alternatives. If you can't see a doctor, you can get many products over the counter at your local pharmacy or grocery store, including the nicotine patch, nicotine lozenges, and nicotine gum. Resources for Quitting Smoking: <https://www.[place].gov/documents/[facility]/Quit_Tobacco_Resources_for_patients_313 480_7.pdf> Supplementation: Take recommended dosages of Vitamin D and Calcium to help fortify your bones and help them to heal. See your health maintenance packet for dosages and recommended levels. DVT/VTE prophylaxis: You will be given compression stockings from the hospital. Wear these daily for the first two weeks after surgery. You may take them off at night. You may be prescribed a medication to help thin your blood. Take this as directed. If you are not prescribed this medication, early and frequent ambulation has been shown to be the best prophylaxis to deep vein thrombosis and sequelae related to this event. Assessment: Cervical myelopathy Procedures: -Revision fusion C3-7 with Posterior C2-T2 decompression fusion -C5-7 ACDF Patient Condition at Discharge: Good Plan - Discharge Summary Discharge Rx Participant: Yes New Discharge Prescriptions: New Cyclobenzaprine [Flexeril] 10 mg PO HS #30 tab oxyCODONE ER [OxyCONTIN] 10 mg PO Q12HR #10 tab Sennosides/Docusate Sodium [Senna-S 8.6-50 mg Tablet] 1 each PO BID #20 tablet Changed Gabapentin 400 mg PO TID PRN #30 tab PRN Reason: Pain No Action buPROPion HCL [buPROPion HCL SR] 150 mg PO BID PARoxetine HCL [Paxil] 40 mg PO DAILY metFORMIN HCL [Glucophage] 500 mg PO BID amLODIPine [Norvasc] 10 mg PO DAILY Omeprazole 20 mg PO DAILY Hydrocodone/Acetaminophen [Peosta 7.5-325] 1 tab PO TID Ipratropium/Albuterol Sulfate [Combivent Respimat Inhaler] 1 puff INHALATION RT-QID PRN PRN Reason: Dyspnea Albuterol Inhaler (Mhu) [Ventolin Hfa Inhaler] 1 - 2 puff INHALATION RT-QID PRN PRN Reason: Dyspnea methocarbamoL [Methocarbamol] 500 mg PO HS Discharge Medication List Albuterol Inhaler (Mhu) [Ventolin Hfa Inhaler] 1 - 2 puff INHALATION RT-QID PRN 12/21/19 [History] Hydrocodone/Acetaminophen [Peosta 7.5-325] 1 tab PO TID 12/21/19 [History] Ipratropium/Albuterol Sulfate [Combivent Respimat Inhaler] 1 puff INHALATION RT- QID PRN 12/21/19 [History] Omeprazole 20 mg PO DAILY 12/21/19 [History] PARoxetine HCL [Paxil] 40 mg PO DAILY 12/21/19 [History] amLODIPine [Norvasc] 10 mg PO DAILY 12/21/19 [History] buPROPion HCL [buPROPion HCL SR] 150 mg PO BID 12/21/19 [History] metFORMIN HCL [Glucophage] 500 mg PO BID 12/21/19 [History] methocarbamoL [Methocarbamol] 500 mg PO HS 03/01/21 [History] Cyclobenzaprine [Flexeril] 10 mg PO HS #30 tab 03/12/21 [Rx] Gabapentin 400 mg PO TID PRN #30 tab 03/12/21 [Rx] Sennosides/Docusate Sodium [Senna-S 8.6-50 mg Tablet] 1 each PO BID #20 tablet 03/12/21 [Rx] oxyCODONE ER [OxyCONTIN] 10 mg PO Q12HR #10 tab 03/12/21 [Rx] Follow up Appointment(s)/Referral(s): [facility], [NON-STAFF] - ([facility] will call you to arrange your first visit. ) Marine Ramírez MD [STAFF PHYSICIAN] - 2 Weeks Kenny Jeffrey DO [Doctor of Osteopathic Medicine] - 10 Days Patient Instructions/Handouts: *Surgery [facility] - ([place]) Cervical Surgery Discharge Instructions Activity/Diet/Wound Care/Special Instructions: Spine Discharge and Recovery Instructions Date of Surgery: 03/07/2021 Diagnosis: Cervical myelopathy Procedure: -Revision fusion C3-7 with Posterior C2-T2 decompression fusion -C5-7 ACDF] Medications: See medication list All medication refills should be obtained through your primary care doctor or your clinic spine surgeon. Please discuss prescription refills at your follow up appointment. Do not call the hospital for medication refills. Dressing: Leave your dressing in place for a total of 5 days post operatively. Then you m ay remove your dressing and leave open to air. Keep the area clean and if not able to keep area clean, then cover with sterile gauze and tape. Showering: You may shower 3 days after your procedure allowing soap and water to run over incision. Do not scrub. Do not soak. Blot dry. Follow up: Please confirm a follow up appointment with your surgeon 3 weeks post operatively. Please make an appointment to follow up with your PCP in 1-2 weeks after surgery for evaluation 3 phase, 3-week plan POST OP WEEKS 1-3 1. Lifting/carrying/pushing/pulling limited to less than 5 pounds. 2. Do not sit for longer than 15 minutes at one time. Get up and walk around. Prolonged sitting is NOT advised. If you lay down, see if you can tolerate laying down on you front (belly side) 3. Walk for periods of 15 minutes = 1 mile but no longer; do it multiple times times each day. 4. Ice your low back after activity. POST OP WEEKS 3-6 1. Lifting limited to less than 20 pounds. 2. Do not sit for longer than 30 minutes at a time. Frequently change positions. Use a sit-to stand workstation or take frequent breaks from sitting if you have returned to work. 3. Walk for 30 minutes each day. If possible, do these three or more times a day POST OP WEEKS 6+ At your 6-week appointment we will give you a physical therapy referral to focus on a core stabilization and strengthening program. You should also work on leg & buttock strengthening, hamstring & quadriceps stretching, and continue a low i mpact aerobic activity program such as swimming, walking, or riding a stationary bicycle. During the initial 6 weeks after your surgery, you are at the highest risk of re-injuring your spine. You should generally avoid BLTs (bending, lifting and twisting combination motions) and follow the above guidelines to reduce the chance of reinjury. You can anticipate post op appointments in our office at approximately 3 weeks and 6 weeks after your surgery. INCISION CARE: If your incision is not draining you do NOT need to cover it with a dressing. Keep your incision clean, dry and intact. In most cases, we apply skin glue, torsten or sutures to the incision at the time of surgery. This will be like a crust or have the appearance of a scab and will fall off in time on its own. The stitches or torsten need to be removed at 3 weeks post op appointment. You may begin to shower 3 days after surgery (this allows the glue to holden well). However, please avoid scrubbing the incision site or peeling off any of the skin glue. This will ensure optimal healing of your incision. Also, during this time avoid soaking the incision area in water - this includes swimming pools, hot tubs or baths. No ointments, lotions or oils on the incision until your surgeon allows. Leave torsten, sutures or glue in place. Neurological dysfunction that comes on suddenly can also be a sign of a stroke. Below some common symptoms of a stroke are listed: B - balance difficulty such as sudden onset walking or leaning to one side - NEW E - eye problem such as sudden double vision or trouble seeing on one side - NEW F - Facial weakness or numbness on one side - NEW A - Arm or leg weakness or numbness on one side - NEW S - Slurred speech or difficulty with word finding - NEW T - Time is BRAIN! Call 911 as soon as you recognize these symptoms Diet: Consume a regular diet rich in vegetables and lean protein such as chicken or fish. You should consume in a ratio of approximately 20% fats|40% carbohydrates|40%protein. Vegetables, sweet potatoes, brown rice or quinoa are examples of good carbohydrates. Chips, white bread, cookies and sweets/sugar are examples of bad carbohydrates. Limit your bad carbs, go wild with good carbs. "Life's Simple 7" Guidelines as per [place] [employer] These will help you reclaim your life after surgery and vessel scrapper helper in your recovery, keeping in mind your restrictions. (1) Get Active. Physical activity can help people lose weight, control high blood pressure and cholesterol, feel emotionally better, and sleep better. (2) Control Cholesterol. Avoid a diet high in saturated fat, trans fat, & cholesterol. Limit whole milk & cream, ice cream, butter, egg yolks, processed meats (like sausage and hot dogs), and fatty meats. Choose healthy foods that are low in saturated fat, trans fat and cholesterol which include: Fruits and vegetables, fiber rich grain products (like whole grain pasta and brown rice), lean meat such as chicken, fish, nuts, seeds, and legumes. (3) Eat Better. Eat small portions. Shop at the grocery with a list and do n ot stray from it. Tips for a healthy diet include: Limit sodium intake to less than 1500mg daily, avoid prepackaged, processed, and fast foods, choose a diet rich in fruits, vegetables, and whole grain, high fiber foods, and limit saturated & cholesterol in your diet. (4) Manage Blood Pressure. If you have high blood pressure, you should have a cuff at home so that you can check your blood pressure regularly. Be sure you have a good cuff. An arm one is generally better than a wrist one. Bring the cuff to a doctor's appointment to validate that the measurements that your cuff are taking are accurate. Take your blood pressure twice daily when you are sitting down and relaxing. Record the numbers in a log and bring this log with you to your doctors' appointments. (5) Lose Weight if your BMI is above 25. A healthy BMI is between 19-25. To calculate Your BMI, you may use a Standard BMI Calculator on the NIH BMI website: <www.nhlbi.nih.gov/guidelines/obesity/BMI/bmicalc.htm>. Weigh oneself daily. If you are overweight, set a goal to lose weight. A pound a week loss if needed is a good target. (6) Reduce Blood Sugar. Limit foods and liquids with "added sugars." (Added sugars include sucrose, fructose, glucose, maltose, dextrose, high fructose corn syrup, corn syrup, concentrated fruit juice and honey). (7) Stop Smoking. If you smoke, quitting smoking is one of the best things that you can do for your health. Smoking increases your risk of heart attack, stroke, and peripheral vascular disease, which is a build-up of plaque in your arteries. Please discard all the cigarettes and lighters in your house. Have a plan for what you will do when you have the urge to smoke. Direct and second- hand smoke shortens your life as well as the lives of your family, friends and others around you. For your health and the health of those around you, please consider quitting! Proper Bending Body Mechanics: Maintain a wide stance with one foot slightly in front of the other. Keep your back straight. Bend utilizing the strength in your hips and knees. Do not bend at the waist. Maintain the lifted object at your waist-level close to your body. Avoid lifting weight that causes immediately pain or pain anywhere in the body afterwards. Smoking/Nicotine If there was ever one thing that you could do to increase your overall health, decrease your risk of cardiovascular problems by about 39% the second you make the choice, it is to STOP SMOKING. Your body's most instant gratification is the second you stop smoking. We have all heard the studies, read the articles but it is true, smoking is extremely bad for your overall health, and moreover it is detrimental to your bone health. Nicotine, IN ANY FORM, kills bone cells, prevents your body from healing fractures, and significantly prolongs healing after surgery. In spine surgery specifically, it increases your risk of not healing your bones to create a fusion and increases your risk of having a revision surgery due to this up to 60%. I know it is hard. I know it feels impossible. But there are ways. Take control of your life. We are here to help you through it. And when you are ready, ask us and we can direct you to help if you desire. Use the START Plan to Quit Smoking (please visit the Helpguide.org website listed below for more information): S = Set a quit date. Choose a date within the next 2 weeks, so you have enough time to prepare without losing your motivation to quit. If you mainly smoke at work, quit on the weekend, so you have a few days to adjust to the change. T = Tell family, friends, and co-workers that you plan to quit. Let your friends and family in on your plan to quit smoking and tell them you need their support and encouragement to stop. Look for a quit alistair who wants to stop smoking as well. You can help each other get through the rough times. A = Anticipate and plan for the challenges you'll face while quitting. Most people who begin smoking again do so within the first 3 months. You can help yourself make it through by preparing ahead for common challenges, such as nicotine withdrawal and cigarette cravings. R = Remove cigarettes and other tobacco products from your home, car, and work. Throw away all your cigarettes (no emergency pack!), lighters, ashtrays, and matches. Wash your clothes and freshen up anything that smells like smoke. Shampoo your car, clean your drapes and carpet, and steam your furniture. T = Talk to your doctor about getting help to quit. Your doctor can prescribe medication to help with withdrawal and suggest other alternatives. If you can't see a doctor, you can get many products over the counter at your local pharmacy or grocery store, including the nicotine patch, nicotine lozenges, and nicotine gum. Resources for Quitting Smoking: <https://www.[place].gov/documents/mdch/Quit_Toba cco_Resources_for_patients_313480_7.pdf> Supplementation: Take recommended dosages of Vitamin D and Calcium to help fortify your bones and help them to heal. See your health maintenance packet for dosages and recommended levels. DVT/VTE prophylaxis: You will be given compression stockings from the hospital. Wear these daily for the first two weeks after surgery. You may take them off at night. You may be prescribed a medication to help thin your blood. Take this as directed. If you are not prescribed this medication, early and frequent ambulation has been shown to be the best prophylaxis to deep vein thrombosis and sequelae related to this event. Discharge Disposition: HOME SELF-CARE
--- NOTE | 2021-03-12 12:08 | P.PN ---
Subjective Progress Note Date: 03/12/21 Principal diagnosis: Cervical myelopathy Upon entering room patient was sitting in chair. Patient said he is comfortable and ready to go home. Patient said he is having minimal neck pain. He did say he did have a little bit of itching right at the site of where the drain tube was inserted. He denies any fever, chills, chest pain, shortness of breath. Denies any vision changes. Objective - Vital Signs Vital signs: Vital Signs Temp 98.1 F 03/12/21 07:22 Pulse 51 L 03/12/21 07:22 Resp 17 03/12/21 07:22 BP 159/91 03/12/21 07:22 Pulse Ox 93 L 03/12/21 07:22 Intake & Output 03/11/21 03/12/21 03/12/21 18:59 06:59 18:59 Intake Total 600 500 Output Total 20 Balance 580 500 Weight 112.037 kg Intake: IV 600 500 Piperacillin-Tazobactam 3 100 .375 gm In Sodium Chloride 0.9% 100 ml @ 25 mls/hr IVPB Q8HR FROILAN Rx# :[id number] Vancomycin 2,000 mg In 500 500 Sodium Chloride 0.9% 500 ml 500 ml @ 167 mls/hr IVPB Q8H FROILAN Rx#: [id number] Output: Drainage 20 Posterior Neck 20 Other: # Voids 1 ABP, PAP, CO, CI - Last Documented Arterial Blood Pressure 123/88 - Exam The incision site is clean, dry, and intact. Posterior tube was removed with minimal serosanguineous drainage. Posterior cervical dressing was replaced. - Labs CBC & Chem 7: 03/12/21 07:00 03/12/21 07:00 Labs: Abnormal Lab Results - Last 24 Hours (Table) 03/11/21 03/11/21 03/11/21 Range/Units 12:02 16:32 20:08 WBC (4.50-10.00) X 10*3/uL RBC (4.40-5.60) X 10*6/uL Hgb (13.0-17.0) g/dL Hct (39.6-50.0) % MCV (80.0-97.0) fL MPV (9.5-12.2) fL Immature Gran # (0.00-0.04) X 10*3/uL Creatinine (0.66-1.25) mg/dL POC Glucose (mg/dL) 164 H 174 H 158 H (75-99) mg/dL 03/12/21 03/12/21 03/12/21 Range/Units 07:00 07:00 11:41 WBC 10.84 H (4.50-10.00) X 10*3/uL RBC 4.00 L (4.40-5.60) X 10*6/uL Hgb 12.5 L (13.0-17.0) g/dL Hct 39.0 L (39.6-50.0) % MCV 97.5 H (80.0-97.0) fL MPV 9.3 L (9.5-12.2) fL Immature Gran # 0.14 H (0.00-0.04) X 10*3/uL Creatinine 0.63 L (0.66-1.25) mg/dL POC Glucose (mg/dL) 119 H (75-99) mg/dL Assessment and Plan Plan: Assessment: 55 yo male POD4 Revision fusion C3-7 with Posterior C2-T2 decompression fusion. for cervical spondylotic mylopathy. 1. s/p C5-7 ACDF with adjacent segment disease C3-5 2. Cervical spondylitic myelopathy 3. B/L UE weakness 4. B/L LE weakness Plan: -Appreciate medicine, cardio and pulmonary management. Symptom Control: -Pain control: Adequate at this time -Flexeril 10 3 times a day Pending tests: -Aggressive ambulation protocol. OOB with all meals. OOB or in chair 4-5x daily. -PT/OT -Hard C collar when up and about. NO need when sleeping or sitting still. Prophylaxis: -TEDs, SCDs, mechanical ppx. Early ambulation is best. -GI ppx. -Lovenox Imaging/labs: -Computed tomography scan of the cervical spine completed -Trend labs as appropriate Intervention: PT OT Posterior drain removed Cont vanco/zosyn Case management eval and set up for home care -Discharge home today -F/u in 10 days in office Time with Patient: Less than 30
--- NOTE | 2021-03-14 11:41 | P.OP ---
Date of Procedure: 03/07/21 Preoperative Diagnosis: 1. Cervical spondylotic Myelopathy 2. C3-4 and C4-5 adaject segment disease 3. s/p C5-7 ACDF 4. Severe cervical stenosis C3-4 and C4-5 with myelopathy 5. UE weakness 6. LE weakness 7. Mechanical neck pain Postoperative Diagnosis: 1. Cervical spondylotic Myelopathy 2. C3-4 and C4-5 adaject segment disease 3. s/p C5-7 ACDF 4. Severe cervical stenosis C3-4 and C4-5 with myelopathy 5. UE weakness 6. LE weakness 7. Mechanical neck pain Implants: [place] anterior cervical interbody 8 mm x 8 deg lordotic 14x16 footprint x2. Anesthesia: GETA Surgeon: Kenny Jeffrey Staff Technologist #1: Gideon Tapia (Stage I: Was present for the entire case and was necessary due to the complexity of the case. Stage II:) Estimated Blood Loss (ml): 25 (Stage II: ) IV fluids (ml): 1,200 (Stage II:) Urine output (ml): 0 (Stage II:) Pathology: none sent Condition: stable Disposition: ICU Indications for Procedure: this is a pleasant 55-year-old male who presents with complaints of cervical spine pain as well as upper extremity pain and weakness. The patient states that several years prior in [facility] where the patient was living he had a fusion of his cervical spine from C4 to C7. He states that he did well after surgery from this but over the past couple of years it has seemed to declined in nature. He continues to have pain in his neck as well as popping and clicking within his neck that hurt him. He has pain in his bilateral upper extremities that seems to be getting worse. He states weakness in his upper extremities right worse than left and he is right-handed so this affects him quite a bit. He denies any bowel or bladder issues he denies any perineal numbness or tingling he states no falls recently but he does feel somewhat unsteady on his feet.Patient returns for a follow up of his neck pain and MRI results of his cervical and thoracic spine. He notes significant pain. He is unable to move his neck without severe pain. He notes pain that radiates down both his arms. He is taking [place] 10mg three times daily and Gabapentin four times daily. Patient returns for a preoperative appointment for his cervical spine. 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 Patient had a previous C5-7 fusion. He takes Gabapentin and [place] for pain. Patient ambulates independently. He has proximal failure of C3-5 with severe stenosis, mylomalacia, myelopathy and pincer lesions at these levels. He continues to be unsteady on his feet, loosing his balance, falling and having difficulty with fine motor skills. He has weakness in his hands and shoulders as well. Denies any f/c/sob/cp/MCLEOD/n/v/vision changes at this time. Operative Findings: Stage I: Severely stenotic and spondylotic C3-5 with anterior plate fixation C5- 7 with osteophytic overgrowth and good fusion at C5-7. Description of Procedure: The patient was seen and examined in the preoperative area. All preoperative protocols were followed. Informed consent was obtained risks and benefits of the procedure were discussed at length. Risks including bleeding infection michael ge to the surrounding tissue and risk of reoperation were discussed with the patient. Risk of anesthesia up to and including was a discussed with the patient. These are outlined in the risk review. They were willing to accept these risks and all of the risks of surgery. The patient was given a weight- based dose of antibiotics in the form of vancomycin weight-based dose. The patient was seen and evaluated by the anesthesia team who deemed them fit for surgery. The site was marked, the patient was willing to proceed with the procedure. The patient was transferred to the operative suite by the Department of anesthesia. They were then drifted off to sleep by the department anesthesia general endotracheal intubation. The patient tolerated this well. Arterial line as well as central line were placed by anesthesia [Zavala catheter was placed by nursing staff, atraumatically]. Once confirmation of lines and ventilation the patient was transferred to a flattop Waldo table very carefully. Calvillo-Wells tongs were placed and 10 pounds of traction placed on the head. Shoulder roll was placed as well as neck roll for appropriate visualization and extension. Shoulders were then taped down with 3 inch tape. All bony prominences including wrists, elbows, axilla, chest, hips, and thighs, and feet were padded very well. Special attention was paid to the genitalia and these were padded accordingly. SCDs were placed on bilateral lower extremities and were connected. Arms were well padded and placed at the patient's side tucked and secured. Once in position, again we confirmed good ventilation capabilities and that lines were running appropriately. The patient's anterior cervical spine was then exposed. 1010s were placed outlining the incision site. Standard alcohol was used to clean the incision site and allowed to dry. C-arm was used to biomark the patient and confirm level for incision which was marked with a skin marker. Operative briefing was performed with all teams and everyone in agreement to proceed. The patient was then prepped and draped in a normal sterile fashion. Timeout was then performed and all parties were in agreement with the procedure to be performed. Stage I: The previous incision site was identified and infiltrated with quarter percent Marcaine epinephrine. A standard Streeter-Alvarado approach to the anterior cervical neck was then taken through this previous incision. There were good planes identified between the sternocleidomastoid and the strap muscles medially the omohyoid was identified. Deep cervical fascia was identified. The esophagus and trachea were gently and atraumatically released. Deep cervical fascia was released which allowed identification of the anterior longitudinal ligament as well as the scar over the previous plate. We then used blunt dissection to mobilize the esophagus and trachea cranially as well as caudally from this area to allow full visualization of the anterior cervical spine. Once we had good visualization of longus coli bilaterally a [place] was used and a lateral fluoroscopy taken to confirm levels C3-C4 and C4-C5. Plate was also visualized. These were then marked with a little Bovie. We then proceeded with dissection of the anterior longitudinal ligament and the longus coli bilaterally as well as visualization of the plate and dissection of this. We explored the fusion and the plate at C5 to C7. There was solid fusion in this area of the plate was nonmobile there was no loose screws and so was elected to keep this in place. Once the longus coli were dissected laterally and the uncovertebral joints visualized at C3 4 and 45 we placed the Trimline retractors underneath the longus coli. This allowed for good visualization of the disc spaces at 3445. We then performed discectomy L3 4 using curettes Harpal Danita as well as Kerrisons and pituitary. We cleaned off anterior osteophytes with rongeur. Traction pins were placed under lateral fluoroscopic guidance. Distractor was placed which allowed for visualization posteriorly. Discectomy was taken back to the posterior longitudinal ligament was then identified. We then used a high-speed bur to bur off the cranial portion of the C3 posterior endplate and osteophyte complex as well as the cranial portion of the C4 superior endplate. This allowed for good visualization in this area of the PLL. 60 curet was then used to access posterior to the PLL and PLL was released using curette as well as Kerrison rongeur. Bilateral foraminotomies were performed at the C4 3 C4 level. Once good decompression was accomplished meticulous hemostasis was performed with FloSeal. The disc space was irrigated thoroughly. End plates were scraped and made flush. We then trialed our spacers. We placed an 8 mm 8 lordotic interbody spacer with graft. This was impacted into place under lateral fluoroscopy. Once in good position distraction was removed. We then placed the superior and inferior screws through the anterior plate on this graft. 1 superior screw and one inferior screw were placed with a punch followed by the screw. These had good purchase and was in good position on AP and lateral fluoroscopy. The distraction pin and C3 was then removed and bone wax was placed in its void. Motors were checked after decompression and after graft placement and there was no changes. Attention was then drawn to the C4-C5 interspace. Distraction pin was unable to be placed in C5 secondary to the plate fixation was artery there and so a lamina resin filterer distractor was used for distraction. C4 distraction pin was then removed and bone wax placed in its void. Anterior osteophytes were removed from C4 and C5 using Kerrison rongeur and Harpal Danita. Discectomy was performed using Kerrison rongeurs as well as curettes. Once PLL was identified distractor was placed to allow for visualization of PLL and foramen. We first placed a distractor on the left-hand side of the disc space which allowed us to clear the right-hand side PLL as well as perform foraminotomies on the side. We then replaced the lamina resin filterer on the left-hand side and were able to perform the PLL release decompression and foraminotomies on the right-hand side. Once good decompression and release had been performed we then placed a sizer into the interspace under lateral fluoroscopy. An 8 mm 8 lordotic spacer was chosen. This was filled with bone graft and was then impacted under lateral fluoroscopy. Once in good position the screws were placed through the anterior plate of this graft 1 superior one inferior. An awl was placed first through these followed by the screw. There is good purchase in both of the screws. AP and lateral fluoroscopy confirmed good placement of the grafts as well as good reduction of kyphosis at these levels as well as distraction of the interspace. Motors were checked after decompression and graft placement with no changes. Meticulous hemostasis was then performed using FloSeal as well as irrigation. The wound was copiously irrigated with normal sterile saline. Final AP and lateral fluoroscopy's taken. We then placed Surgicel over these areas. The fusion was once again investigated caudally and there was good perfusion block failure. We then placed a drain deep to the fascia. A layered closure was then performed first with 3-0 Vicryl in the platysma followed by 3-0 Vicryl in the subcu followed by 4-0 running Monocryl in the subcuticular region. This was then cleaned and sterilely dressed with ex-glue Telfa 4 x 4's and Tegaderm. The drain was sewn in to place with nylon stitch and was holding good suction. The patient was placed in a soft collar and was moved from the [facility] table to his hospital bed atraumatically. The beds were then changed to the [facility]. Calvillo-Wells tongs as well as the 10 pounds of traction had been removed prior to this without any issue. Seville head track coach was then placed on the patient. [place] was then positioned on the table. Once everyone was ready we position the patient prone on the [facility] table with the [place] head track coach. Stage II: Once the patient was in position prone within [place] headholder in a spine [facility] we took lateral fluoroscopy to position the patient's neck once he was in a good position we visualized that the grafts were sewn in place with no issues and the c-collar was removed. The patient's arms were then well padded and tucked at his side attention was paid to the patient's chest axilla hips genitalia and knees and ankles to make sure that there are completely padded. Zavala was still in place. Arms were then tucked to the side and he was wrapped and taped to the table. 3 inch tape was then used to take down the shoulders lateral fluoroscopy again confirmed good visualization. We then prepped and draped the patient normal sterile fashion. Timeout was again performed and all parties in agreement with the second stage procedure to be performed. No new antibiotics were needed and the patient was still running on a TXA infusion. Midline skin incision was made from just below the inion to around the level of T2. Subcu dissection was taken down to the cervical thoracic fascia the nuchal ligament was identified and split. Palpation then revealed the spinous processes from C2 down to T2. The fascia was then opened midline in this area and subperiosteal dissection was taken out over the lamina of C2 through T2. We identified the joints at each of these levels as well as the transverse processes at T2 and T1. Once dissection was complete good visualization was intact. Meticulous hemostasis was performed. We then under lateral fluoroscopy placed the C2 screw on the left using first a high-speed bur followed by a drill in increments of 2 mm up to 22 mm. After each drilling 2 mm we used a ball probe to palpate the pedicle which was congruent and had 4 tracey. Under lateral fluoroscopy then we placed a C2 screw on the left atraumatically with no issues. We then turned our attention to the right handed C2 screw in the same process was formed under lateral fluoroscopy high-speed bur was used to create a starting point and then a drill with drill guide was used in 2 mm increments to a 24 mm screw. After each drilling session ball probe was used to confirm within the pedicle. Once this was confirmed a screw was placed under lateral fluoroscopy in this area. There were no issues with the screw placement either. High-speed bur was then used to create starting points in the lateral masses of C3 through C6 as well as in T1 and T2 bilaterally. We then drilled lateral masses at a 14 mm depth under lateral fluoroscopy bilaterally. Ball probe was then used to probe each of these holes male had good bony bottoms. We then placed the screws atraumatically from C3 to C6 bilaterally. Then under AP fluoroscopy we placed T2 screws using a pedicle finder as well as a probe. Pedicle finder was placed under AP fluoroscopy and measured and a 35 mm 5 hole screw was placed in T2 on the right followed by a 35 mm 50 screw on the right T1 and the similar fashion. We then repeated this on the left-hand side. Final AP and lateral fluoroscopy confirmed good placement of screws from C2 to T2. C2 screw on the left had a slightly lateral starting point but was safe. We then measured and cut a dual core armand from 3.5 to 4.0 armand. This was then bent into position for lordosis in the cervical spine and transition into T1 and T2. The armand on the right hand side was then placed loosely. We then performed a reduction of the head into a more lordotic position. Motors were checked after this and were stable. We then locked the right handed armand into place with set screws. We then bent and placed the left-handed armand. A connector was placed on the end of the armand to allow for connection to the C2 screw as it was a slightly lateral starting point however was still safe. The left-sided armand was then tightened. All set screws were then final tightened from C2 to T2 bilaterally. There confirmed in good position. We then performed a bilateral laminotomy decompression of C2 to C7. We then removed the lamina from C2 to C7 atraumatically. Meticulous hemostasis was performed. We performed bilateral foraminotomies at C4 5 and C3 4. This was done with Kerrison Ronjair. Again meticulous hemostasis was performed. Motors were run after decompression and were stable. The patient's MA P was maintained at 80 or above during this no issue. We then copiously irrigated the wound with normal sterile saline 3 L. FloSeal was then placed in the gutters followed by Surgicel. We then placed 2 cross connectors at the before meals 6 C7 level and the see to C3 level. The facet joints had been decorticated bilaterally from C2 to C7 prior to screw placement. We then placed bone graft posterior lateral as well as in the facet joints that had been decorticated. We placed Surgicel over this to hold it in place. We inspected the wounds the screws had been placed and final tightened with the rods in good position bone graft had been placed. We then placed 2 g of vancomycin deep within the wound. Surgicel had been placed over the dura there was meticulous hemostasis in this area a deep drain was then placed in this wound as well. We then proceeded with layered closure of the trapezial fascia and the posterior cervical fascia with #1 Vicryl followed by a running unidirectional barbed strata fix suture oh size. We then placed 0 PDS in the subcu region followed by a second running unidirectional strata fix suture. We then placed 2-0 PDS suture in the subcu region followed by a running 2-0 nylon stitch in the skin. The drain was sewn in with 2-0 nylon. Igor were used for skin closure as well. Cellerate powder was placed in the subcu region prior to closure. We then cleaned the wound thoroughly and dressed it sterilely with Cellerate gel followed by Telfa 4 x 4's and Tegaderm. Final motors were run all intraoperative neuro monitoring showed good motors SSEPs and MEP's with no changes from baseline during first stage and second stage procedure. The patient was transferred back to her hospital bed atraumatically. The Alonso clamp was removed and the pinholes inspected there was no drainage or bleeding from these areas. Drains continued to hold suction and were in good position. Patient was then awakened slowly by anesthesia and extubated by the department of anesthesia having tolerated the procedure very well with no complications. He was transferred to the postoperative care unit in stable condition with plans for ICU stay overnight due to his breathing status, COPD and health status. He was stable in PACU on 5 L O2.
== END 2021-03-12 13:01 | disposition home health service (06) | DRG 453 ==
LOC: 2ORMAIN 05:40 → 2SICU 18:30 → 4SSUR 03-10 20:54
PROVIDERS: ADMIT Orthopaedic Surgery; ATTEND Orthopaedic Surgery
PROC: 5A09457 Assistance with Respiratory Ventilation, 24-96 Consecutive Hours, Continuous Positive Airway Pressure (ICD-10-PCS; 2021-03-07)
PROC: 0RG4071 Fusion of Cervicothoracic Vertebral Joint with Autologous Tissue Substitute, Posterior Approach, Posterior Column, Open Approach (ICD-10-PCS; principal; 2021-03-07 07:30)
PROC: 0RB30ZZ Excision of Cervical Vertebral Disc, Open Approach (ICD-10-PCS; principal; 2021-03-07 07:30)
PROC: 0RG20A0 Fusion of 2 or more Cervical Vertebral Joints with Interbody Fusion Device, Anterior Approach, Anterior Column, Open Approach (ICD-10-PCS; principal; 2021-03-07 07:30)
PROC: 4A11X4G Monitoring of Peripheral Nervous Electrical Activity, Intraoperative, External Approach (ICD-10-PCS; principal; 2021-03-07 07:30)
PROC: 0RP104Z Removal of Internal Fixation Device from Cervical Vertebral Joint, Open Approach (ICD-10-PCS; principal; 2021-03-07 07:30)
PROC: 0RG2071 Fusion of 2 or more Cervical Vertebral Joints with Autologous Tissue Substitute, Posterior Approach, Posterior Column, Open Approach (ICD-10-PCS; principal; 2021-03-07 07:30)
PROC: 05HN33Z Insertion of Infusion Device into Left Internal Jugular Vein, Percutaneous Approach (ICD-10-PCS; 2021-03-07 07:30)
PROC: 4A133B1 Monitoring of Arterial Pressure, Peripheral, Percutaneous Approach (ICD-10-PCS; 2021-03-07 07:30)
PROC: 4A133J1 Monitoring of Arterial Pulse, Peripheral, Percutaneous Approach (ICD-10-PCS; 2021-03-07 07:30)
PROC: 03HY32Z Insertion of Monitoring Device into Upper Artery, Percutaneous Approach (ICD-10-PCS; 2021-03-07 07:30)
PROC: 5A0935A Assistance with Respiratory Ventilation, Less than 24 Consecutive Hours, High Flow/Velocity Cannula (ICD-10-PCS; 2021-03-11)
DX: M47.12 Other spondylosis with myelopathy, cervical region (principal); J69.0 Pneumonitis due to inhalation of food and vomit; J96.01 Acute respiratory failure with hypoxia; G95.89 Other specified diseases of spinal cord; J98.11 Atelectasis; J44.1 Chronic obstructive pulmonary disease with (acute) exacerbation; E11.9 Type 2 diabetes mellitus without complications; M47.22 Other spondylosis with radiculopathy, cervical region; G47.33 Obstructive sleep apnea (adult) (pediatric); K21.9 Gastro-esophageal reflux disease without esophagitis; I10 Essential (primary) hypertension; M19.90 Unspecified osteoarthritis, unspecified site; M48.02 Spinal stenosis, cervical region; Z20.822 Contact with and (suspected) exposure to COVID-19; E86.0 Dehydration; G89.29 Other chronic pain; Q89.9 Congenital malformation, unspecified; R26.81 Unsteadiness on feet; F17.200 Nicotine dependence, unspecified, uncomplicated; F12.90 Cannabis use, unspecified, uncomplicated; Z71.6 Tobacco abuse counseling; Z79.84 Long term (current) use of oral hypoglycemic drugs; Z79.899 Other long term (current) drug therapy; Z98.1 Arthrodesis status; Z86.14 Personal history of Methicillin resistant Staphylococcus aureus infection; Z90.49 Acquired absence of other specified parts of digestive tract; Z87.19 Personal history of other diseases of the digestive system; Z98.890 Other specified postprocedural states; Z83.2 Family history of diseases of the blood and blood-forming organs and certain disorders involving the immune mechanism
CPT/HCPCS: 36600; 70360; 71045; 72020; 72125; 80048; 80053; 80202; 82565; 82805; 83735; 83880; 84145; 85025; 86850; 86891; 86900; 86901; 93306; 94640; 94660; C1762

== ENCOUNTER → 2021-06-15 | Outpatient (CLI) | payer OTHER ==
--- NOTE | 2021-06-15 16:24 | XR ---
EXAMINATION TYPE: XR shoulder complete RT DATE OF EXAM: 06/15/2021 CLINICAL HISTORY: pain TECHNIQUE: Three views of the right shoulder are obtained. COMPARISON: None FINDINGS: There is no acute fracture/dislocation evident. The acromioclavicular and glenohumeral po int spaces appear within normal limits. The visualized ribs are intact and unremarkable. IMPRESSION: 1. There is no acute fracture or dislocation. ICD 10 NO FRACTURE, INITIAL EVALUATION
== END | disposition home or self-care (01) ==
LOC: RADXRMAIN 15:52
PROVIDERS: ATTEND Family Medicine
DX: M75.81 Other shoulder lesions, right shoulder (principal)

== ENCOUNTER → 2021-09-11 | Outpatient (CLI) | payer OTHER ==
[2021-09-11 18:52] LABS: Basophils # (A) 0.06 X 10*3/uL (0.00-0.10); Basophils % (A) 0.7 %; Eosinophils # (A) 0.25 X 10*3/uL (0.04-0.35); Eosinophils % (A) 2.8 %; HCT 45.8 % (39.6-50.0); HGB 15.4 g/dL (13.0-17.0); Lymphocytes # (A) 2.16 X 10*3/uL (0.90-5.00); Lymphocytes % (A) 23.8 %; MCH 30.3 pg (27.0-32.0); MCHC 33.6 g/dL (32.0-37.0); MCV 90.2 fL (80.0-97.0); Mean Platelet Volume 9.3 fL (9.5-12.2); Monocytes # (A) 0.97 X 10*3/uL (0.20-1.00); Monocytes % (A) 10.7 %; Neutrophils % (A) 61.7 %; Platelet Count 369 X 10*3/uL (140-440); RBC 5.08 X 10*6/uL (4.40-5.60); RDW 15.2 % (11.5-14.5); WBC 9.07 X 10*3/uL (4.50-10.00)
[2021-09-11 20:43] LABS: Erythrocyte Sedimentation Rate 3 mm/Hr (0-20)
[2021-09-11 21:23] LABS: Albumin 4.5 g/dL (3.8-4.9); C Reactive Protein 0.5 mg/dL (0.00-0.80); Total Protein 6.6 g/dL (6.2-8.2)
== END | disposition home or self-care (01) ==
LOC: LABWHC1 13:51
PROVIDERS: ATTEND Orthopaedic Surgery
DX: M54.2 Cervicalgia (principal)
CPT/HCPCS: 36415; 82040; 82306; 84155; 85025; 85652; 86140

== ENCOUNTER → 2021-10-04 | Outpatient (CLI) | payer OTHER ==
--- NOTE | 2021-10-04 09:11 | MR ---
MRI CERVICAL SPINE: CLINICAL HISTORY: Neck pain. Prior surgery. TECHNIQUE: Multiplanar, multisequence imaging of the cervical spine is performed without IV contrast. COMPARISON: MRI cervical spine February 13, 2021. Cervical spine x-ray September 08, 2021 FINDINGS: Sagittal images of the cervical spine show the craniocervical junction to remain within nor mal limits. There is interval successful decompression of the spinal canal narrowing and cord comprom ise at C3-C4 and C4-C5 levels. Spinal cord shows satisfactory caliber and signal as it courses the ce rvical spine on current study. Vertebral alignment is satisfactory. There is extensive artifact from anterior fusion devices and lower cervical fusion plate along with artificial disc material C3-C4 an d C4-C5 levels and posterior fusion hardware running entire cervical spine into upper thoracic spine. Some ossific fusion in the lower cervical spine is redemonstrated. Axial images show C2-C3 level to appear within normal limits. Axial images at C3-C4 and C4-C5 levels show artifact from surgical change, there are patent bilateral neural foramina and spinal canal is grossly preserved. Axial images at C5-C6 and C6-C7 and C7-T1 levels show significant artifact and surgical change. Spina l canal is grossly preserved. Neural foramina are grossly patent. Extensive posterior scar tissue is seen. There is a suspected tiny 9 mm thin-walled fluid collection posteriorly sagittal image 15 presumed postsurgical seroma. IMPRESSION: Interval successful spinal canal and cord decompression. Spinal cord shows normal caliber and signal currently. Alignment is straightened and satisfactory.
== END | disposition home or self-care (01) ==
LOC: RADMRIMAIN 08:05
PROVIDERS: ATTEND Orthopaedic Surgery
DX: M54.2 Cervicalgia (principal)
CPT/HCPCS: 72141

== ENCOUNTER 2021-10-18 11:25 | Day surgery (SDC) | payer OTHER ==
[2021-10-13 13:58] VITALS: BMI 36.5
[~2021-10-18 11:25] MED LIST changes: -GABAPENTIN 300 MG CAP PO PRN; +HYDROmorphone 0.5 MG/0.5 ML SYRINGE IVP PRN; +LACTATED RINGERS 1,000 ML IV SCH; +ONDANSETRON 4 MG/2 ML VIAL IVP PRN; +Pre Op ABX Message 1 EACH MISC MISCELLANE ONE; -TRANEXAMIC ACID 1,000 MG in SODIUM CHLORIDE 0.9% 100 ML IVPB PRN
--- NOTE | 2021-10-18 12:09 | P.HPOR ---
History of Present Illness H&P Date: 10/09/21 Age: 56 year Height: 5'8" Weight: 240 lbs BP:138/70 BMI: 36.49 kg/m2 Occupation: Disabled VAS: 5 CHIEF COMPLAINT: S/P C5-C7 cervical fusion HISTORY: Xrays No new xrays taken today. Trauma or injury No Work-Related No Pain description aching. Location posterior Activity Modification No Hand Dominance right DOI: Chronic, no injury or trauma. DOS: (03/07/2021) TREATMENTS COMPLETED: 6 weeks of PT completed? None post-op Physician directed home exercise completed? None post-op Medications No Alternative interventions Chiropractic?: No Brace: No Injections No RFA: No SUBJECTIVE: Today Mr. Molina presents to the office for a follow up evaluation of his cervical spine. Since the time of the last appointment the patient notes that he has had continued drainage about the surgical sites on the posterior cervical spine, with clear fluid. Patient denies any fevers or chills associated with this. Otherwise he does report some intermittent cervical pain but this does wax and wane, describing it as a general "soreness". Patient is currently taking [place]/Gabapentin for pain with good effect. Otherwise the patient denies any issues at this time. HPI: Mr. Molina was last seen on 09/08/2021 regarding his cervical spine. Today he notes that he has been improving since the last appointment, still reporting some intermittent drainage from a cyst near the incision but minimal pain at this time. Additionally the patient has since completed his course of anti- biotics given to him at his last appointment. Overall the patient is happy with the progress that he has made. He states he fell recently however, and is having low back pain related to this. He states his RUE is having some issues today and states that it seems weaker than normal. The incision is well healed except for the one area with cyst where there is still some drainage. Patient last presented on 07/28/2021 for a follow up appointment regarding his cervical spine. He noted that he has been having some drainage from a pinhole region in the incision and that he previously had a sebaceous cyst in this area that was taken care of by his PCP. This had been ongoing, he reported, since after his surgery. These cysts did not bring him pain but he was concerned about the amount of drainage he has at the surgical site. Other than this the patient denied any pain or noteworthy issues at this time. Of note, Mr. Molina did note that he had been having increased lower back pain over the last several months that was starting to limit his ambulation. He described increased pain with ambulation and standing for extended periods of time.Despite this, at the time of his last appointment he states that he was improving and denied any other issues at that time. The patients' past social, medical, family, surgical history, as well as review of systems, have been reviewed. Please refer to the Neurosurgery History and Physical form that has been scanned in to our electronic medical record system. Review of Systems 14 points review of systems completed and as stated in HPI, all other systems reviewed are negative. Constitutional: Reports as per HPI Past Medical History Past Medical History: COPD, Diabetes Mellitus, GERD/Reflux, Hypertension, Musculoskeletal Disorder Additional Past Medical History / Comment(s): Degenerative Disc Disease, Spondylosis, bilateral numbness down both arms to fingers. Wears right knee brace. History of Any Multi-Drug Resistant Organisms: MRSA Date of last positivie culture/infection: 1999 MDRO Source:: face Past Surgical History: Appendectomy, Cholecystectomy Additional Past Surgical History / Comment(s): Neck fusion with bone from hip, back surgery d/t congenital defect,. multiple sutures to face due to chain saw accident, Colonoscopy. Past Anesthesia/Blood Transfusion Reactions: Previous Problems w/ Anesthesia Additional Past Anesthesia/Blood Transfusion Reaction / Comment(s): "Combative when coming out anesthesia." Past Psychological History: Anxiety, Depression Smoking Status: Current every day smoker Past Alcohol Use History: None Reported, Rare Additional Past Alcohol Use History / Comment(s): Smoker for 30 years, 1 ppd. Past Drug Use History: Marijuana Additional Drug Use History / Comment(s): USES MARIJUANA DAILY-INSTRUCTED TO REFRAIN FROM USE FOR AT LEAST 24 HOURS PRIOR TO PROCEDURE. - Past Family History Mother Family Medical History: Deep Vein Thrombosis (DVT) Sister(s) Family Medical History: Cancer Additional Family Medical History / Comment(s): Colon cancer X2 sisters. Medications and Allergies Home Medications Medication Instructions Recorded Confirmed Type Albuterol Inhaler (Mhu) [Ventolin 1 - 2 puff INHALATION RT-QID PRN 12/21/1909/25 History Hfa Inhaler] Hydrocodone/Acetaminophen [[place] 1 tab PO TID PRN 12/21/19 10/13/21 History 7.5-325] Ipratropium/Albuterol Sulfate 1 puff INHALATION RT-QID PRN 12/21/19 10/13/21 History [Combivent Respimat Inhaler] Omeprazole 20 mg PO QAM 12/21/19 10/13/21 History PARoxetine HCL [Paxil] 40 mg PO QAM 12/21/19 10/13/21 History amLODIPine [Norvasc] 10 mg PO QAM 12/21/19 10/13/21 History buPROPion HCL [buPROPion HCL SR] 150 mg PO BID 12/21/19 10/13/21 History metFORMIN HCL [Glucophage] 500 mg PO BID 12/21/19 10/13/21 History methocarbamoL [Methocarbamol] 500 mg PO HS 03/01/21 10/13/21 History Docusate [Colace] 100 mg PO DAILY 10/13/21 10/13/21 History Gabapentin 400 mg PO QID 10/13/21 10/13/21 History Allergies Allergy/AdvReac Type Severity Reaction Status Date / Time No Known Allergies Allergy Verified 10/13/21 13:38 Physical Examination Osteopathic Statement: *. No significant issues noted on an osteopathic structural exam other than those noted in the History and Physical/Consult. General: Awake, alert, appropriate for age, in no acute distress. HEENT: No unusual neck masses around region of lateral neck triangle, thyroid, supraclavicular groove Heart: Regular rate and rhythm, normal S1, S2 and no murmur/gallop. Lungs: Clear to auscultation bilaterally with no use of accessory muscles. Extremities: Skin warm and dry without acute lesions, coloration, temperature, skin intact, no tenderness or erythema Integument: Hairy patches: Absent Dorsal skin dimples: Absent Cafe au lait spots: Absent Surgical incisions: No Palpation: Please see Pain drawing on Intake sheet for further detail. Midline spinal tenderness: No E6 Paralumbar tenderness: No E6 Parathoracic tenderness: No E6 Buttocks tenderness: No E6 Special findings: -There is NO irritation or erythema around the posterior incision which is healing. There is an area in the midportion the incision which is still healing.There is mild serous drainage likely from suture irritation below the skin. No purulence noted. Serous drainage from this area mild. - The anterior wound is healing very well there is still some glue in place which is removed there is no erythema or ecchymosis or edema no tenderness to palpation around either wounds. POSTURAL and MUSCULO-SKELETAL EVALUATION: Coronal Balance: NEUTRAL Recumbent testing: Patient is able to lay flat on back Sagittal Balance: NEUTRAL Shoulder Profile: LEVEL Pelvic Girdle: LEVEL Neck ROM: RESTRICTED Lumbar ROM: UNRESTRICTED Shoulder ROM: Symmetrical Hip ROM: Symmetrical Knee ROM: Symmetrical Hands: Normal appearance, symmetrical Feet: Normal appearance, Symmetrical VASCULAR STATUS : LEFT RIGHT Wrist Pulses INTACT INTACT Pedal Pulses (Dors. pedis & post.tibialis) INTACT INTACT Color NORMAL NORMAL Edema Absent Absent NEUROLOGIC EXAMINATION: Mental Status:Awake and alert, fully oriented, with normal attention, concentration and memory, and fluent, appropriate speech. Cranial Nerves: I: Olfactory not tested. II: Visual acuity normal, no visual field deficit noted with confrontation. III,IV: Normal pupillary reflexes & intact extraocular movements without nystagmus. V,: Intact symmetrical facial sensation. VII: Intact symmetrical facial motor movement VIII: Hearing intact. IX,X: Intact gag, swallow, & normal voice. XI: Sternocleidomastoid, trapezius function intact. XII: Tongue midline with normal movements. L'hermitte's Sign: Negative / absent Spurling'Sign: Absent bilaterally. Cubital percussion test: Absent bilaterally. Luisa-Tinel sign - Carpal region: Absent bilaterally. Straight Leg Raising: Absent bilaterally. Crossed straight leg raise: negative O8 MOTOR EXAM (0-5/5, N/T) STRENGTH RIGHT LEFT Shoulder Abd (not part of the ROSY score) 5 5 Elbow Flexors 4+ 4+ Elbow Extensor 4+ 4+ Wrist Dorsiflexors 5 5 Finger Abductor 5 5 Career Development Engineer 4+ 4+ Hip Flexor (Not part of ROSY Motor score) 5 5 Knee Flexor 5 5 Knee Extensor 5 5 Ankle dorsiflexor 5 5 Ankle plantarflexion 5 5 Extensor hallucis 5 5 REFLEXES(0-4/2, NT) RIGHT LEFT Upper Extremities 2 2 Lower Extremities 2 2 Pathological Reflexes RIGHT LEFT Ramirez's Present Present Clonus # of beats: 5 # of beats: 5 Babinski Absent Absent # Indicates mechanical impairment Muscle appearance: Symmetrical, without signs of atrophy or dystrophy. Sensory system (0-4, N/T) Test type RU PAN RL LL Joint-Position 2 2 2 2 Vibration 2 2 2 2 Pain & LT sense 2 2 2 2 Dermatomal Deficit: C4-C5 C6-7 None None Gait and Functional Evaluation: Ambulatory aids: Independent Romberg's test: Intact bilaterally Toe heel walk / heel-toe walk intact while maintaining satisfactory balance? yes Squatting/straightening w/o assistance to a min of 60 degree knee flexion? yes Single leg stance: intact Trendelenburg sign negative bilaterally Hand and finger dexterity intact bilaterally? yes Disdiadochokinesis examination negative bilaterally? yes Results RADIOGRAPHIC STUDIES: XRay taken on 06/26/21 of Cervical was reviewed by Dr. Hassan and indicates: -hardware in good position of evidence of fracture or hardware failure or migration at this time overall alignment maintained as well and good healing noted XRay taken on 07/28/21 of Cervical was reviewed by Dr. Hassan and indicates: - hardware in position no interval changes no hardware failure or migration maintained alignment with good bony fusion XRay taken on 09/08/21 of Cervical and Lumbar spine was reviewed by Dr. Hassan and indicates: These are reviewed. There is good fusion of the C spine noted anterior and posterior with hardware in position without evidence of fracture failure or migration. lumbar spine films demonstrate spondylosis in the lower lumbar regions L4 to S1. There is no acute fracture or dislocation. Overall alignment is fairly well maintained. No instability. AP pelvis demonstrates congruent level pelvis O fracture dislocation MRI scan from 10/04/21 of Cervical Spine: This demonstrates a small superficial collection of fluid, seroma like and cyst like. This is likely from previous cyst in this area but it seems to be communicating with superficial space. There is no evidence of deep fluid collection, infection or hardware involvement. This is all suprafacial. There are no other lesions noted at this time. Hardware in goodposition. Assessment and Plan Assessment: It was my pleasure to have seen and examined Kvng. I reviewed the patient's clinical syndrome, physical findings, and imaging studies during the appointment today. It is my impression that the patient has a diagnosis of. 1. S/P C5-C7 cervical fusion- recovering appropriately at this time. The drainage that was prevalent at the time of the previous appointment has waned significantly this is also likely coming from a cyst that is in his skin near the incision site. Overall he has made great progress since the last appointment. 2. Low back contusion status post fall from standing I outlined the natural course history without intervention and various interventional options. Plan: 1. Based on the patient's continued drainage and seroma, in order to prevent any future complications, I do feel a I&D is needed to resolve this. We will plan on incision and drainage of posterior neck. All risks and benefits were discussed and the patient expressed understanding. He would like to proceed with scheduling. 2. Continue with supplements, health maintenance, home exercise programs. Ambulate daily Take medications as directed Ice and rest for pain and swelling control. Surgical Procedure Risk Review Kvng Molina is a 56 year old male presenting for evaluation of sudden onset of *cyst formation with drainage from posterior neck. It was my pleasure to have seen and examined Mr. Molina. In our visit today we have had a chance to go over subjective complaints, physical examination findings and treatments, including the natural course history without intervention and various interventional options. The imaging demonstrates *small superficial fluid collection with skin communication, no deep fluid collections . On physical exam, Mr. Molina demonstrates *small cyst sinus tract post neck . I explained to the patient that as his condition progresses it could cause *continued drainage, possible adjunct faculty for medical terminology and infective processes . At this time, based on the patients imaging and physical exam, I recommend surgery in the form or a: *incision and drainage with cyst evacuation and closure . I discussed the risk and benefits of this procedure at length with Mr. Molina. The patient spouseagreed to consider pursuing the procedure mentioned above. Plan: 1. *Incision and drainage posterior neck wound 2. * Follow up with PCP for surgical clearance 3. * Review of surgical risks and benefits as well as an educational packet on the proposed surgical procedure. 4. DEL Risks: All surgical procedures come with inherent risks, including those related to positioning, anesthesia, intraoperative findings, and postoperative complications. It is important to understand that surgery does not come with any guarantee of a successful outcome as complications and adverse events are always possible. The patient was given a handout in office today discussing the surgical procedure and risks associated with the intervention, both of which were discussed with the patient. These risks include but are not limited to the following: ? Experiencing same, different or even worse symptoms in back, neck, arms, or legs compared to before surgery. ? Requiring further surgery or other forms of treatment presently or at some time in the future at same or other levels of the intended spine surgery. ? On an extreme but fortunately relatively rare basis severe complication such as blindness, stroke, heart attack, temporary and/or permanent nerve injury, paralysis, coma, or may occur, sometimes without known explanation. ? Surgical complications may include but are not limited to risk of infection, fluid accumulation in the surgical dissection site, including a seroma or hematoma, that requires additional surgery, wound drainage, bleeding, new numbness or weakness, vision changes/loss, spinal fluid leakage, non-healing and/or infected incision, headaches, difficulty or inability to swallow, hoarseness, hemopneumothorax, pneumothorax, impotence, retrograde ejaculation, vaginal dryness; injury to nerves, spinal cord, blood vessels, lymphatics or other vital organs (i.e., bowel injury, injury to the great vessels); heterotopic bone formation; complications related to the hardware such as screws, rods, cages including misplaced hardware, device failure, instrumentation at the wrong spine level, hardware fracture/breakage, or hardware loosening; vertebral failure of the spinal column above or below the newly placed hardware; retained surgical instrumentations or devices and the need for further surgery. ? Medical risks of the planned spine surgery include but are not limited to generalized Infections to the whole body or local areas outside of the surgical site (sepsis), heart attack, bleeding, anaphylaxis, meningitis, seizure, epilepsy, hearing loss, burn barnes, laceration of the head or other areas of the body, bruising, hypersensitivity of the skin, bladder over distension; allergic reaction; shoulder injury related to positioning; fat, blood and air clots to other areas of the body like heart, lungs, brain; failure of internal organs such as lungs, kidneys, liver and excessive bleeding. If blood transfusions are necessary, note that transfusions may cause intolerance reactions such as anaphylaxis or other complex reactions. Despite best efforts, the results of spine surgery might not heal in terms of bone, soft tissues such as skin, fascia, ligaments, and joints. Additionally, in order to achieve best possible results, spine surgery may be carried out beyond the initially planned levels and involve decompression, fusion including insertion of hardware at levels other than the original intended area of surgical interest change some portions of the procedure in order to ensure the best possible outcomes. With spine surgery and spinal fusion, there are different off label uses of instrumentation (devices, implants and hardware) as well as biological substances (bone morphogenic proteins, demineralized bone matrix) as well as using extra bone from allograft sources (i.e. cadaver bone) or autograft (iliac crest bone, ribs, or the spine itself). The patient has been given information about these practices and their inherent risks and benefits. [facility] Physician Assistants are medically trained surgical providers who function in the outpatient, inpatient, and operating room setting under the direct supervision of the attending surgeon.They assist in the operating room with direct supervision of the attending surgeons. The patient has had a chance to review all the listed information, has been given print outs detailing this information, and has had all his/her questions answered to their satisfaction. It was my pleasure to have seen and examined Mr. Molina. In our visit today we have had a chance to go over my understanding of our patient's current condition, the natural course history without intervention and various interventional options. Questions were invited and answered, and the patient wishes to proceed as outlined above. I have seen and examined the patient for 25 minutes and we have spent more than 50% of the time in repeat and detailed counseling about the patient's condition, its natural course history with out and as much as can be predicted with surgery and re-review of various surgical treatment options. In conclusion,Mr. Molina and his spouse/partner requested we proceed with the yosi joseph suggested surgery and are willing to accept risks and limitations of the suggested surgery as nature of the disease process and our best attempts at treatment for the condition. Thank you again for allowing us to be part of your patient's care. Please don't hesitate to contact me if you have any further questions. Signed and authenticated by: Kenny Azevedo [facility] [address] [address]
[2021-10-18 12:11] LABS: Glucose,Whole Blood 116 mg/dL (75-99)
[2021-10-18] MEDS ORDERED: VANCOMYCIN IV PER PHARMACY 1 EACH MISC MISCELLANE PRN (12:18)
[2021-10-18] MEDS ORDERED: NEOSTIGMINE 1 MG/ML 10 ML VIAL ONE (12:44)
[2021-10-18] MEDS ORDERED: ePHEDrine 50 MG/ML 1 ML AMP ONE (12:44)
[2021-10-18] MEDS ORDERED: MIDAZOLAM 2 MG/2 ML VIAL ONE (12:44)
[2021-10-18] MEDS ORDERED: PROPOFOL 10 MG/ML 20 ML VIAL IV ONE (12:44)
[2021-10-18] MEDS ORDERED: ROCURONIUM 10 MG/ML (5 ML VIAL) IV ONE (12:44)
[2021-10-18] MEDS ORDERED: PHENYLEPHRINE-0.9% NACL SYG 1,000 MCG/10 ML SYRINGE ONE (12:44)
[2021-10-18] MEDS ORDERED: fentaNYL (PF) 50 MCG/ML 2 ML AMP ONE (12:44)
[2021-10-18] MEDS ORDERED: GLYCOPYRROLATE 0.2 MG/ML 2 ML VIAL ONE (12:44)
[2021-10-18] MEDS ORDERED: LIDOCAINE 1% INJ 10MG/ML (20 ML MDV) ONE (12:44)
[2021-10-18] MEDS ORDERED: ALBUTEROL HFA INHALER INHALATION ONE (12:44)
[2021-10-18] MEDS ORDERED: SUCCINYLCHOLINE CHLORIDE 100 MG/5 ML SYR IV ONE (12:44)
[2021-10-18] MEDS ORDERED: ceFAZolin 3,000 MG in SODIUM CHLORIDE 0.9% IRRIGATIO 3,000 ML IRRIGATION ONE (13:23)
[2021-10-18] MEDS ORDERED: BUPIVACAINE (PF) 0.25% 30 ML VIAL SQ ONE ×2 (13:44)
[2021-10-18] MEDS ORDERED: VANCOMYCIN 1,000 MG VIAL MISCELLANE ONE (13:45)
[2021-10-18] MEDS ORDERED: LACTATED RINGERS 1,000 ML IV ONE (14:05)
--- NOTE | 2021-10-18 14:29 | P.OP ---
Date of Procedure: 10/18/21 Preoperative Diagnosis: 1. Posterior neck cyst Postoperative Diagnosis: 1. Posterior neck cyst Procedure(s) Performed: 1. Incision and drainage Posterior neck using the following: -Knife for incision and excision of cyst material, tracey and skin 2. Excision of posterior neck cyst 4 x 5 x 3 cm using the following: -Knife and bovi for excision of cyst material, tracey and skin -Cuette to scrape out cyst material -6L irrigation for irrigation of materials 3. Irrigation and debridment of skin, soft tissue and bone using the following: -Knife for excision of cyst material, tracey and skin -Cuette to scrape out cyst material -6L irrigation for irrigation of materials -Rongure for bone removal 4. Complex closure posterior neck 4 x 5 x 3 cm Anesthesia: GETA Surgeon: Kenny Jeffrey Photo Lab Manager #1: Cliff Ny (Was present and necessary for the entire case due to complexity of the case) Estimated Blood Loss (ml): 20 IV fluids (ml): 1,500 Urine output (ml): 0 Pathology: other (x 2 cultures posterior superficial neck; Post neck cyst specimine) Condition: stable Disposition: PACU Indications for Procedure: 56-year-old male who is being followed in the office presented after 9 months for small pinhole drainage area in his posterior neck. This was about the incision however was not necessarily related to the incision the patient has multiple different areas of sebaceous cysts on the back of his neck. The patient's primary care doctor apparently tried to take care of this and removed the sebaceous cyst however it has not stopped draining since. The patient was worked up with labs MRI and found to have what appears to be a intra-nuchal ligament cyst like fluid collection. The patient's labs were negative for gross infection there is no deep tracking fluid or infection. The patient denies any fevers or chills. We discussed that since this been going on for some time now that the best course of action would likely to be to cut it out and he agreed. We discussed all risks and benefits related to this clinic risk of bleeding infection damage to the surrounding tissue and risk of reoperation risk of anesthesia up to and including use willing to assume these risks and all the risks outlined in the risk review. Patient seen preoperatively all preoperative protocols followed. The patient's consent was confirmed with him and signed. The site was marked patient was given a weight-based dose of vancomycin anesthesia see the patient and deemed them fit for surgery. Description of Procedure: The patient was seen and examined in the preoperative area. All preoperative protocols were followed. Informed consent was obtained risks and benefits of the procedure were discussed at length. Risks including bleeding infection damage to the surrounding tissue and risk of reoperation were discussed with the patient. Risk of anesthesia up to and including was a discussed with the patient. These are outlined in the risk review. They were willing to accept these risks and all of the risks of surgery. The patient was given a weight- based dose of antibiotics in the form of vancomycin weight-based dose. The patient was seen and evaluated by the anesthesia team who deemed them fit for surgery. The site was marked, the patient was willing to proceed with the procedure. The patient was transferred to the operative suite by the Department of anesthesia. They were then drifted off to sleep by the department anesthesia and GETA was performed. The patient tolerated this well. . Once confirmation of lines and ventilation the patient was transferred to a prone Waldo table very carefully. All bony prominences including wrists, elbows, axilla, chest, hips, and thighs, and feet were padded very well. Special attention was paid to the genitalia and these were padded accordingly. SCDs were placed on bilateral lower extremities and were connected. Arms were well padded and placed on arm boards up and out in the 90/90 position. Once in position, again we confirmed good ventilation capabilities and that lines were running appropriately. The patient's posterior cervical spine was then exposed. 1010s were placed ou tlining the incision site. Standard alcohol was used to clean the incision site and allowed to dry. C-arm was used to biomark the patient and confirm level for incision which was marked with a skin marker. Operative briefing was performed with all teams and everyone in agreement to proceed. The patient was then prepped and draped in a normal sterile fashion. Timeout was then performed and all parties were in agreement with the procedure to be performed. Area was then marked with a skin marker and a an elliptical incision was made around the pinhole area of the cyst track. This was dissected down following the track and removing the skin and the tract until it was removed. We then performed blunt dissection down to where the cyst was more open which was seemingly within the nuchal ligament posteriorly. We then excised the capsule of the cyst we took cultures of it as well as remove the gelatinous type material that was inside of it and sent this for culture and for pathology. O nce this was removed entirely we did probe and used curettes to scrape the sides and tracey and there was no deep communication nor fluid other fluid collections and the tracey were completely removed. We then created flaps within the scarred muscle tissue and superficial to the nuchal ligament to allow for good closure using a Bovie. We excised any other tissue using a knife and curet. We used shahid Calvo to remove some intra-nuchal ligament bone that was still present. This is done with the Umesh as well. We removed any other material that appeared cystlike or scarlike to clean the area. We then irrigated the area with 6 L of antibiotic solution followed by Irricept followed by 6 L of normal sterile saline. Thoroughly and this time we were scraping with a curette as well. Once we cleared the whole area and placed vancomycin deep within the void as well as Cellerate powder. We then performed a layered closure first with 0 PDS to close the deep scar tissue as well as approximate the scrape the edges of the removed cyst tracey to decrease th. We then closed the scarred muscle layers as well as the nuchal ligament layers. We followed this with a superficial subcu tissue closure with 2-0 PDS and then closed the skin with a 2-0 nylon. The wound edges approximated very well. We then cleaned it and sterilely dressed it with an opti foam dressing. The patient was transferred back to their hospital bed atraumatically. Patient was then awakened and extubated by the department of anesthesia having tolerated the procedure very well with no complications. They were transferred to the postoperative care unit in stable condition.
--- NOTE | 2021-10-18 14:31 | P.PN ---
Progress Note - Text Progress Note Date: 10/18/21 Brief Post Op: Surgeon: Rachele Assist: Bobby Pre op dx; posterior neck cyst Post op dx: Of severe neck cyst Procedure: Incision and drainage with irrigation and debridement and excision of posterior neck cyst Anesthesia: GETA EBL: 20 mL Fluids: 1100 cc UO: 0 mL Dispo: Stable to PACU Post op Plan: DC home when awake and stable for home with self care per PACU and anesthesia Keep dressing CDI, remove in 3-5 days OK toshower, do not submerge incision No creames or savs on incision Take abx and meds as directed f/u in 2 weeks in office
[2021-10-18 14:32] VITALS: RESP 16
[2021-10-18 14:37] VITALS: TEMP 97.7
[2021-10-18 14:42] LABS: Glucose,Whole Blood 142 mg/dL (75-99)
[2021-10-18 15:22] VITALS: BP 123/79; PULSE 74
== END 2021-10-18 15:37 | disposition home or self-care (01) ==
LOC: OR 11:25
PROVIDERS: ATTEND Orthopaedic Surgery
DX: L72.0 Epidermal cyst (principal); J44.9 Chronic obstructive pulmonary disease, unspecified; E11.9 Type 2 diabetes mellitus without complications; K21.9 Gastro-esophageal reflux disease without esophagitis; I10 Essential (primary) hypertension; F41.9 Anxiety disorder, unspecified; F32.A Depression, unspecified; F17.210 Nicotine dependence, cigarettes, uncomplicated; R20.0 Anesthesia of skin; Z86.14 Personal history of Methicillin resistant Staphylococcus aureus infection; Z90.49 Acquired absence of other specified parts of digestive tract; Z98.1 Arthrodesis status; S30.0XXA Contusion of lower back and pelvis, initial encounter; W18.30XA Fall on same level, unspecified, initial encounter; Z98.890 Other specified postprocedural states; Z82.49 Family history of ischemic heart disease and other diseases of the circulatory system; Z80.0 Family history of malignant neoplasm of digestive organs; Z79.84 Long term (current) use of oral hypoglycemic drugs; Z79.899 Other long term (current) drug therapy
CPT/HCPCS: 11426; 13132; 13133 ×3; 88304; 87070; 87205; 87075; J2250; J3370; J1100; J2710; J2405; J0690; J2001; J3010; J2370; J0330; J2704

== ENCOUNTER → 2022-03-29 | Outpatient (CLI) | payer OTHER ==
--- NOTE | 2022-03-29 08:41 | CT ---
EXAMINATION TYPE: CT lumbar spine wo con DATE OF EXAM: 03/29/2022 8:21 AM COMPARISON: None HISTORY: Low back pain, DDD CT DLP: 2459.7 mGycm Automated exposure control for dose reduction was used. Unenhanced CT of the lumbar spine was performed. Bone and soft tissue window settings are submitted as well as coronal and sagittal reconstructions. L1-L2: Normal disc space height. No disc herniation protrusion or central stenosis. No facet joint arthropathy. No evidence for foraminal encroachment. Ventral spondylosis. L2-L3: Moderate degenerative disc space narrowing with moderate broad-based posterior disc bulge. Eff acement ventral thecal sac with mild central stenosis noted. Mild facet joint arthropathy. Foramina a re patent bilaterally. L3-L4: Mild degenerative disc space narrowing. Posterior disc bulge. Effacement ventral thecal sac. B ilateral lateral recess stenosis suggested. No evidence for tara central stenosis. Foramina are aleman nt bilaterally. L4-L5: Mild degenerative disc space narrowing. Decompressive laminectomy change. Broad-based posterio r disc bulge effaces the ventral thecal sac without overt central stenosis. Mild bilateral foraminal encroachment. Minimal ventral spondylosis. L5-S1: Normal disc space height. No disc herniation protrusion or central stenosis. No facet joint arthropathy. No evidence for foraminal encroachment. IMPRESSION: 1. Multilevel degenerative disc disease. 2. Mild central stenosis L2-3 with bilateral lateral recess stenosis at L3-4. 2. Decompressive laminectomy L4-5
== END | disposition home or self-care (01) ==
LOC: RADCTMAIN 08:03
PROVIDERS: ATTEND Family Medicine
DX: M51.36 Other intervertebral disc degeneration, lumbar region (principal)
CPT/HCPCS: 72131

== ENCOUNTER → 2022-04-09 | Outpatient (CLI) | payer OTHER ==
--- NOTE | 2022-04-09 15:50 | XR ---
EXAMINATION TYPE: XR knee complete RT DATE OF EXAM: 04/09/2022 CLINICAL HISTORY: Pain for 4 months TECHNIQUE: Three views of the right knee are obtained. COMPARISON: Right knee x-ray July 21, 2020. FINDINGS: There is no acute fracture/dislocation evident in right knee. Moderate narrowing with mild spurring patellofemoral compartment redemonstrated. Moderate narrowing with mild/moderate spurring m edial tibial femoral compartment redemonstrated. The overlying soft tissue appears unremarkable. IMPRESSION: As above. No significant change or degenerative progression from prior.
== END | disposition home or self-care (01) ==
LOC: RADXRMAIN 14:07
PROVIDERS: ATTEND Family Medicine
DX: M17.11 Unilateral primary osteoarthritis, right knee (principal); M25.661 Stiffness of right knee, not elsewhere classified

== ENCOUNTER → 2022-06-06 | Outpatient (CLI) | payer OTHER ==
--- NOTE | 2022-06-06 14:48 | MR ---
EXAMINATION TYPE: MR lumbar spine wo con DATE OF EXAM: 06/06/2022 COMPARISON: None HISTORY: Low back pain into buttocks/legs. Hx surgery. TECHNIQUE: Multiplanar, multisequence images of the lumbar spine were acquired without IV contrast. L1-L2: Mild decreased signal and loss of height compatible with degenerative disc disease. Posterior disc bulge with effacement of the ventral thecal sac. There is no evidence for central stenosis or di sc herniation. Foramina are patent. L2-L3: Mild decreased signal ossified compatible degenerative disc disease. Circumferential disc bulg e greatest posteriorly with effacement of the ventral thecal sac. Hypertrophy of the ligamentum flavu m and facet joint arthropathy contribute to a mild to moderate central stenosis. L3-L4: Mild decreased signal and loss of height compatible with degenerative disc disease. Posterior disc bulge with effacement of the ventral thecal sac. There is no evidence for central stenosis or di sc herniation. Foramina are patent. Lumbar laminectomy with fusion. L4-L5: Mild decreased signal and loss of height compatible with degenerative disc disease. Posterior disc bulge with effacement of the ventral thecal sac. There is no evidence for central stenosis or di sc herniation. Moderate foraminal encroachment bilaterally. Lumbar laminectomy with fusion. L5-S1: Normal disc appearance without desiccation. No herniation, protrusion or disc bulging. No ca nal stenosis is present. Foramina are patent bilaterally. Lumbar segments are intact. No paraspinal masses are identified. Conus medullaris has a normal appe arance. IMPRESSION: 1. Multilevel degenerative disc disease. 2. Central stenosis at L2-3. 3. Postoperative lumbar laminectomy and fusion L4-5 and L5-S1.
== END | disposition home or self-care (01) ==
LOC: RADMRIMAIN 12:37
PROVIDERS: ATTEND Orthopaedic Surgery
DX: M47.26 Other spondylosis with radiculopathy, lumbar region (principal); M48.062 Spinal stenosis, lumbar region with neurogenic claudication
CPT/HCPCS: 72148

== ENCOUNTER → 2022-09-27 | Outpatient (CLI) | payer OTHER ==
[2022-09-27 12:49] VITALS: BP 155/125; PULSE 98; RESP 18
--- NOTE | 2022-09-27 15:05 | P.PAINPG ---
PQRS Measure Charge Sheet Comment: HISTORY OF PRESENT ILLNESS: 57 yr old male w at side as a referral from Dr Jeffrey/ Dr Brito presents today w severe and chronic LBP secondary to DDD, spondylosis and facet arthropathy without myelopathy for evaluation. Pt states his pain level is 10/10 in intensity, constant, localized in the mid to lower aspect of his lumbar spine, sharp/ burning in character w shooting pain towards the BL buttocks. Pain is provoked by walking for periods of 15 min or more. Pain is alleviated w meds (Tyl, Neurontin, Moran), heat, ice, laying supine, repositioning and rest. States he can not afford PT due to the couple living on $800 per month and can not travel multiple times a week to another town for PT. PMH: COPD, Diabetes Mellitus, GERD, HTN, MDD/ Anxiety PSH: C5-C7 Fusion, C2-T2 Decompressive Laminectomy, L3-L5 Laminectomy w Fusion, Appendectomy, Cholecystectomy, Hx of Facial Laceration, Colonoscopy (2020) SH: 30 pack/ yr tobacco user, +Cannabis use, Rare ETOH use FH: Mo- DVT. Sister- Colon CA. Sister 32- Colon CA. All: NKDA Meds: See list REVIEW OF ORGAN SYSTEMS: CONSTITUTIONAL: No fevers or chills. No recent weight loss. NEUROLOGICAL: + numbness and tingling along the distal extremities. No seizure disorders or headaches. MUSCULOSKELETAL: + pain PSYCHIATRIC: Denies current depression or suicidal thoughts. Physical Examinations : Constitutional : Cooperative , not in acute distress . Neurologic : Cranial nerve II to XII intact. No focal neurological deficits. Psychiatric : alert & oriented x 3. Matching mood & appropriate affect. Judgment & insight intact. Musculoskeletal : Cervical Spine Motor strength in the deltoid and biceps: Normal right side. Normal Left side Motor strength biceps and the wrist extensors: Normal right side . Normal left side Motor strength in the triceps muscle: Normal right side. Normal left side Deep tendon reflexes: Normal at the biceps. Normal at Brachioradialis. Normal at triceps Vertebral body tenderness to deep palpation over Cervical facet loading test: positive bilaterally Spurling test: positive bilaterally Neck distraction test: positive bilaterally Philippe sign: positive bilaterally Lumbar spine Motor strength lower extremities ,thigh and legs 5/5 Right side , 5/5 Left side Deep tendon reflexes : Normal Knee Jerk. Normal Ankle Jerk Vertebral body tenderness over L4, L5 Lumbar facet Loading Test: positive Right / positive Left Range of motion of the lumbar spine Flexion 30 degrees, extension 10 degrees Straight Leg Raise test: Left/ Right positive at <40 degree Liv test: positive right / positive left. Severe tenderness over the Sacroiliac joint on the Right / Left sides Gaenslen test: positive bilaterally Seated flexion test: positive bilaterally. Sacral spine : Severe tenderness over the Sacroiliac joint: right side / left side Range of motion: Flexion of the lumbar spine <60 degrees Range of motion: Extension of the lumbar spine <20 degrees Gaenslen's Test positive Stas's Test positive Liv test: positive right side / left side Thigh Thrust Test Sacral Thrust Test Imaging: MRI without contrast of the lumbar spine from 06/06/22 reviewed Assessment/ Plan : Lumbar DDD, lumbar spondylosis, Post laminectomy syndrome Recommendation of BL TFESI L4-L5. May need a series of injections, up to 3 w ithin a 6 mo period ,for optimal pain relief. Risks, benefits of procedure discussed and patient verbalized understanding. Denies aspirin or anti- coagulant use and admits to medical history of diabetes. Protocol for discontinuation/ continuation of medications jon procedure discussed. All questions answered. I have spent greater than 30 minutes on patient care today. Dr German was available by phone for the evaluation of this patient. The time was used to review the medical records including relevant urine studies and Prescription history (MAPs), review of the available imaging, evaluation and examination of the patient, coordination of care with the medical staff and if applicable referring physicians, as well as creation of the medical record PQRS Narrative: Smoking Status Current every day smoker Home Medications: Ambulatory Orders Albuterol Inhaler [Ventolin Hfa Inhaler] 1 - 2 puff INHALATION RT-QID PRN 12/21/19 Hydrocodone/Acetaminophen [Moran 7.5-325] 1 tab PO TID PRN 12/21/19 Ipratropium/Albuterol Sulfate [Combivent Respimat Inhaler] 1 puff INHALATION RT- QID PRN 12/21/19 Omeprazole 20 mg PO QAM 12/21/19 PARoxetine HCL [Paxil] 40 mg PO QAM 12/21/19 amLODIPine [Norvasc] 10 mg PO QAM 12/21/19 buPROPion HCL [buPROPion HCL SR] 150 mg PO BID 12/21/19 metFORMIN HCL [Glucophage] 500 mg PO BID 12/21/19 methocarbamoL [Methocarbamol] 500 mg PO HS 03/01/21 Docusate [Colace] 100 mg PO DAILY 10/13/21 Gabapentin 400 mg PO QID 10/13/21 HYDROcodone/APAP 7.5-325MG [Moran 7.5] 1 each PO Q8HR PRN #24 tab 10/18/21 cefaDROXiL [Duricef] 500 mg PO Q12HR #28 cap 10/18/21 Controlled Substance Measures - Controlled Substance Measures Is patient prescribed a controlled substance at discharge?: No
== END | disposition home or self-care (01) ==
LOC: PNWHC3 12:02
PROVIDERS: ATTEND Specialist
DX: M47.896 Other spondylosis, lumbar region (principal); M51.36 Other intervertebral disc degeneration, lumbar region
CPT/HCPCS: 99211

== ENCOUNTER 2022-11-08 09:35 | Day surgery (SDC) | payer OTHER ==
[2022-11-06 11:03] VITALS: BMI 35.4
[~2022-11-08 09:35] MED LIST changes: -ACETAMINOPHEN TAB 500 MG TAB PO PRN; -DEXAMETHASONE SOD PHOSPHATE 4 MG/ML 1 ML VIAL IV ONE; -HYDROmorphone 0.5 MG/0.5 ML SYRINGE IVP PRN; -LIDOCAINE 1% (10MG/ML) FOR IV START INTRADERMA PRN; -MIDAZOLAM 2 MG/2 ML VIAL IV PRN; -ONDANSETRON 4 MG/2 ML VIAL IVP ONE; -ONDANSETRON 4 MG/2 ML VIAL IVP PRN; -Pre Op ABX Message 1 EACH MISC MISCELLANE ONE; -VANCOMYCIN 1,750 MG in SODIUM CHLORIDE 0.9% 500 ML 500 ML IVPB PRN
[2022-11-08 10:15] LABS: Glucose,Whole Blood 130 mg/dL (70-110)
[2022-11-08 10:18] VITALS: RESP 16; TEMP 97.7
[2022-11-08] MEDS ORDERED: DEXAMETHASONE SOD PHOSPHATE 10 MG/ML 1 ML VIAL ONE (11:20)
[2022-11-08] MEDS ORDERED: LIDOCAINE 4% (PF) 5 ML AMP ONE (11:20)
[2022-11-08] MEDS ORDERED: fentaNYL (PF) 50 MCG/ML 2 ML AMP ONE (11:20)
[2022-11-08] MEDS ORDERED: IOPAMIDOL M200 10 ML VIAL ONE (11:20)
[2022-11-08] MEDS ORDERED: MIDAZOLAM 2 MG/2 ML VIAL ONE (11:20)
--- NOTE | 2022-11-08 11:38 | P.PCN ---
Description of Procedure: Date of Procedure: 11/08/22 Surgeon: Gil Ulrich Pathology: none sent Condition: stable Disposition: PACU Description of Procedure: Preoperative Diagnosis: lumbar radiculopathy Postoperative Diagnosis: Same as above Procedure(s) Performed: Bilateral Transforaminal epidural steroid injection for level L4-L5 on side under fluoroscopic guidance Anesthesia: MAC (IV moderate conscious sedation with fentanyl and Versed) Surgeon: Gil Ulrich Condition: stable Disposition: PACU Description of Procedure: . The patient was seen and identified in the preoperative area. Risks, benefits, complications, and alternatives were discussed with the patient. The patient agreed to proceed with the procedure and signed the consent. IV was started, and vital signs were stable. Patient was taken to the OR and time out was completed. The patient was placed in the prone position on procedure table and a pillow was placed under the abdomen to reduce lumbar lordosis. The lumbosacral area was prepped and draped in the usual sterile fashion. Critical pause was taken. Vital signs were closely monitored during the procedure. Conscious sedation was used during the procedure to decrease patients anxiety. Lidocaine 1% was used to numb the skin up at the target points that were chosen as follows: For the L4--L5 level the target point was at the 6 o'clock position of L-4 pedicle in the Rt oblique view. The correct view was obtained by squaring off the L4 vertebra on the AP view of fluoroscopy then the C-arm was tilted to the Rt oblique position to an angle at which the superior articular process of the lower vertebra would point to the middle of the pedicle above it at the 6 o'clock position as mentioned above . Then I used 3-1/2 inch 22-gauge Quincke spinal needle to get to the target point mentioned above by touching the inferior edge of the L4 pedicle and then walking off the bone and into the superior part of the L4-5 foramen using the lateral view of fluoroscopy. I then injected 1 mL of Isovue contrast dye which showed typical epidurogram around the L4 nerve root and into the epidural space. Then I injected 1 mL of lidocaine 2% +7.5 mg of Decadron.. The procedure was repeated on the left side in the same manner. Patient tolerated procedure well,and was transferred to PACU in stable condition. A copy of the needle placement picture was saved to the fluoroscopy machine. Sedation time:[id number]
[2022-11-08] MEDS ORDERED: IV FLUID CONTINUATION 1,000 ML IV ONE (11:41)
--- NOTE | 2022-11-08 11:50 | FL ---
Intraoperative/procedural fluoroscopic services were provided. Total fluoroscopy time is 27 seconds w ith a total of 4 submitted images to PACS. Please see the operative/procedural note for further detai ls.
[2022-11-08 12:05] VITALS: BP 138/83; PULSE 72
== END 2022-11-08 12:14 | disposition home or self-care (01) ==
LOC: ORPAIN 09:35
PROVIDERS: ATTEND Anesthesiology
DX: M54.16 Radiculopathy, lumbar region (principal); J44.9 Chronic obstructive pulmonary disease, unspecified; F17.200 Nicotine dependence, unspecified, uncomplicated; E11.9 Type 2 diabetes mellitus without complications
CPT/HCPCS: 64483; J2001; J2250; J1100; J3010; Q9966; 99152

== ENCOUNTER 2023-03-05 05:33 | Day surgery (SDC) | payer OTHER ==
[2023-03-05] MEDS ORDERED: LIDOCAINE 1% (10MG/ML) FOR IV START INTRADERMA PRN (05:47)
[2023-03-05] MEDS ORDERED: LACTATED RINGERS 1,000 ML IV SCH (05:47)
[2023-03-05 06:25] LABS: Glucose,Whole Blood 143 mg/dL (70-110)
[2023-03-05 06:33] VITALS: TEMP 97.8
[2023-03-05] MEDS ORDERED: PROPOFOL 10 MG/ML 20 ML VIAL IV ONE (07:15)
[2023-03-05] MEDS ORDERED: LIDOCAINE 2% INJ 20 MG/ML (2 ML VIAL) ONE (07:15)
[2023-03-05] MEDS ORDERED: BENZOCAINE SPRAY 1 CAN TOPICAL ONE (07:18)
[2023-03-05] MEDS ORDERED: HYDROcodone/APAP 7.5-325MG 1 EACH TAB PO PRN (07:39)
[2023-03-05] MEDS ORDERED: NON FORMULARY DRUG (Ipratropium/Albuterol Sulfate [Combivent Respimat Inhaler] 1 INHALER M INHALATION PRN (07:39)
[2023-03-05] MEDS ORDERED: methocarbamoL 500 MG TAB PO PRN (07:39)
[2023-03-05] MEDS ORDERED: SODIUM CHLORIDE 0.9% 1,000 ML IV SCH (07:45)
--- NOTE | 2023-03-05 07:45 | P.PCN ---
Date of Procedure: 03/05/23 Description of Procedure: Indication: Atrial fibrillation Procedure Description: After explaining the procedure to the patient, it's risk and complications, blood pressure, heart rate and O2 saturation were monitored. The throat was sprayed with Cetacaine. Patient received sedation per anesthesia department. The probe was introduced into the esophagus without difficulty. Images were obtained. Following that, the probe was removed. There was no immediate complication. Findings: Left atrial size is mildly dilated, left atrial appendage is normal. Left ventricular size is normal. Ejection fraction is 50-55%. The aortic valve, mitral valve and tricuspid valve appeared to be normal. Descending thoracic aorta appears to be normal. The intra-atrial septum is highly mobile. No pericardial effusion was noted. Descending thoracic aorta appears to be normal. Contrast bubble study revealed leads mild shunting across the intra-atrial septum. Doppler: Pulse wave and color Doppler were obtained, and revealed mild mitral and tricuspid regurgitation, there was no shunting across the intra-atrial septum Conclusion: 1. Mildly dilated left atrium with normal appearance of the left atrial appendage 2. Left ventricle systolic function is borderline normal 3. Mild mitral and tricuspid regurgitation 4. Intra-atrial septum is highly mobile with late mild shunting with contrast bubble study 5. No pericardial effusion Cardioversion: After obtaining sedated state and performing CAITLYN a synchronized biphasic cardioversion using 150 and subsequently 200 J was successful in restoring sinus mechanism. There was no immediate complication.
[2023-03-05 08:39] VITALS: RESP 15
[2023-03-05 08:58] VITALS: BP 122/82; PULSE 65
[2023-03-05] MEDS ORDERED: amLODIPine 10 MG TAB PO SCH (09:00)
[2023-03-05] MEDS ORDERED: SENNOSIDES-DOCUSATE SODIUM 1 EACH TAB PO SCH (09:00)
[2023-03-05] MEDS ORDERED: LOSARTAN 50 MG TAB PO SCH (09:00)
[2023-03-05] MEDS ORDERED: NON FORMULARY DRUG (Paroxetine Hcl [Paxil] 40 MG Tablet) PO SCH (09:00)
[2023-03-05] MEDS ORDERED: NON FORMULARY DRUG (Bupropion Hcl [Bupropion Hcl Sr] 150 MG Tab.Er.12h) PO SCH (09:00)
[2023-03-05] MEDS ORDERED: NON FORMULARY DRUG (Omeprazole [Omeprazole] 20 MG Capsule.Dr) PO SCH (09:00)
[2023-03-05] MEDS ORDERED: APIXABAN 5 MG TAB PO SCH (09:00)
[2023-03-05] MEDS ORDERED: NON FORMULARY DRUG (Gabapentin [Gabapentin] 800 MG Tablet) PO SCH (09:00)
[2023-03-05] MEDS ORDERED: metFORMIN 500 MG TAB PO SCH (09:00)
[2023-03-05] MEDS ORDERED: METOPROLOL SUCCINATE (ER) 50 MG TAB.ER.24H PO SCH (18:30)
[2023-03-05] MEDS ORDERED: hydroCHLOROthiazide 12.5 MG CAP PO SCH (18:30)
[2023-03-05] MEDS ORDERED: ATORVASTATIN 40 MG TAB PO SCH (21:00)
== END 2023-03-05 09:05 | disposition home or self-care (01) ==
LOC: OR 05:33
PROVIDERS: ATTEND Internal Medicine Interventional Cardiology
DX: I08.1 Rheumatic disorders of both mitral and tricuspid valves (principal); I48.11 Longstanding persistent atrial fibrillation; E78.2 Mixed hyperlipidemia; I10 Essential (primary) hypertension; G47.33 Obstructive sleep apnea (adult) (pediatric); E11.9 Type 2 diabetes mellitus without complications; J44.1 Chronic obstructive pulmonary disease with (acute) exacerbation; F17.210 Nicotine dependence, cigarettes, uncomplicated; F12.90 Cannabis use, unspecified, uncomplicated; K21.9 Gastro-esophageal reflux disease without esophagitis; Z79.01 Long term (current) use of anticoagulants; Z79.84 Long term (current) use of oral hypoglycemic drugs; Z79.899 Other long term (current) drug therapy; Z79.52 Long term (current) use of systemic steroids
CPT/HCPCS: 93312; 93320; 93325; 92960; J2704; J2001

== ENCOUNTER → 2023-03-11 | Outpatient (CLI) | payer OTHER ==
[~2023-03-11] MED LIST changes: -LACTATED RINGERS 1,000 ML IV SCH; +REGADENOSON 0.4 MG/5 ML SYRINGE IV PRN
--- NOTE | 2023-03-11 18:08 | CA ---
Lexiscan Nuclear Stress Test Report Name: Kvng Molina Exam Date: 03/11/2023 10:23 Exam Location: [facility] Ht (in): 68 Wt (lb): 240 BSA: 2.21 Ordering Phys: Antony Menard MD Referring Phys: NI, Technologist: EVERTON,, Age: 57 Gender: M : 1965 Procedure CPT: Indications: R07.9 CHEST PAIN ICD-10 Codes: Patient History: A-fib, Palpitations and pre surgery Medications: Meds past 24 hrs: Pretest Chest Pain: STRESS TEST Lexiscan Protocol Exercise Duration (min:sec): 01:[address] Depressions (mm): Angina Score: Carrasco Score: Resting HR (bpm): 79 Peak HR (bpm): 141 Resting BP (mmHg): 138 / 103 Peak BP (mmHg): 150 / 92 MPHR: 161 Target HR: 137 % MPHR: 88 METS: 1.0 Total Dose: Peak Dose: Atropine: Double Product: 79885 BP Response: Stress Termination: INFUSION COMPLETE Stress Symptoms: VOMITING Stress Summary: ECG ANALYSIS Resting ECG: Baseline EKG shows atrial fibrillation with nonspecific ST-T wave changes Stress ECG: Patient was given intravenous Lexiscan as a protocol did not have chest pain or diagnostic ST segment depression CONCLUSIONS Negative stress test by EKG criteria Cardiolite portion of the stress test will be reported separately Dr. Nate Rausch MD (Electronically Signed) Final Date: 11 March 2023 18:08
--- NOTE | 2023-03-13 07:29 | NM ---
EXAMINATION TYPE: NM stress lexiscan cardiolite DATE OF EXAM: 03/11/2023 COMPARISON: NONE HISTORY: Chest pain TECHNIQUE: After the intravenous administration of 9.6 mCi Tc 99m Sestamibi - Cardiolite resting SPE CT images acquired 75 minutes post injection. At peak stress 24.8 mCi Tc 99m Sestamibi - Stress images obtained 40 minutes post injection The patient was stressed with 0.4mg Lexiscan. FINDINGS: There is a small fixed defect along the inferior wall with some extension towards the lateral wall. C orrelate for prior infarct. This defect appears underrepresented on the polar maps. Wall motion is no rmal. Ejection fraction is calculated to be 75 %. IMPRESSION: 1. Suggestion of a small fixed defect along the distal inferior wall extending to the apex. 2. No stress-induced ischemic changes.
== END | disposition home or self-care (01) ==
LOC: RADNMMAIN 08:16
PROVIDERS: ATTEND Internal Medicine Interventional Cardiology
DX: R07.9 Chest pain, unspecified (principal); I48.11 Longstanding persistent atrial fibrillation; Z82.49 Family history of ischemic heart disease and other diseases of the circulatory system
CPT/HCPCS: 93017; 78452; A9500; J2785

== ENCOUNTER → 2023-11-15 | Outpatient (CLI) | payer OTHER ==
--- NOTE | 2023-11-15 13:40 | CT ---
EXAMINATION TYPE: CT lumbar spine wo con CT DLP: 2240.9 mGycm, Automated exposure control for dose reduction was used. DATE OF EXAM: 11/15/2023 11:04 AM COMPARISON: 03/29/2022.. CLINICAL INDICATION:Male, 58 years old with history of M54.50 LOW BACK PAIN; PHH, low back pain TECHNIQUE: Multiple axial images were obtained from the midportion of T11 through the sacroiliac taty nts. Soft tissue and bone windows in coronal and sagittal planes were obtained and reviewed. Contrast used: mL of , none. Oral contrast used: none. FINDINGS: Multilevel degeneration changes throughout the spine with osteophyte formation disc space n arrowing and facet joint arthropathy. There is post surgical change at L4 with laminectomy changes. T here is a small caliber of the spinal canal throughout the visualized spine. Visualized neural forame n demonstrate narrowing worse at L4-L5 which is severe bilaterally due to facet joint arthropathy and disc bulging. There is multilevel neural foraminal stenosis which is mild at the other levels throug hout the spine. There is no evidence for significant spinal canal stenosis. No evidence of fracture. Alignment is within normal limits. L5 hemisacralization of the right transverse process. IMPRESSION: Moderate degeneration changes of the spine with postsurgical changes of L4 laminectomy. There is [place] re bilateral L4-L5 neural foraminal stenosis. Findings are not significantly changed from prior.. 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
== END | disposition home or self-care (01) ==
LOC: RADCTMAIN 10:11
PROVIDERS: ATTEND Orthopaedic Surgery
DX: M47.816 Spondylosis without myelopathy or radiculopathy, lumbar region (principal); M99.73 Connective tissue and disc stenosis of intervertebral foramina of lumbar region
CPT/HCPCS: 72131

== ENCOUNTER 2023-11-18 11:26 | Inpatient (IN) | payer OTHER ==
[2023-11-18] MEDS ORDERED: NITROGLYCERIN OINT 1 INCH/GM PACKET TOPICAL STA (11:31)
[2023-11-18] MEDS ORDERED: ASPIRIN 81 MG PO STA (11:31)
--- NOTE | 2023-11-18 12:42 | ED ---
General Adult HPI - General Chief complaint: Chest Pain Stated complaint: Chest pain Time Seen by Provider: 11/18/23 11:35 Source: patient, EMS, RN notes reviewed, old records reviewed Mode of arrival: EMS Limitations: no limitations - History of Present Illness Initial comments: This is a 58-year-old male who presents emergency Department complaining of chest pain radiated to his back according to EMS family stated he also got up and was lightheaded and passed out hit his head on the floor. Patient is on blood thinners. Patient denies headache patient denies neck pain patient denies numbness weakness. Patient does admit that he was having chest pain radiated to his back earlier. Patient states he is a smoker does have diabetes high blood pressure and high cholesterol. Patient states she does occasionally get chest pain but he would've come in today but his called EMS. - Related Data Home Medications Medication Instructions Recorded Confirmed PARoxetine HCL [Paxil] 40 mg PO DAILY 12/21/19 11/18/23 amLODIPine [Norvasc] 10 mg PO DAILY 12/21/19 11/18/23 buPROPion HCL [buPROPion HCL SR] 150 mg PO BID 12/21/19 11/18/23 metFORMIN HCL [Glucophage] 500 mg PO BID 12/21/19 11/18/23 Gabapentin 800 mg PO QID 11/06/22 11/18/23 Apixaban [Eliquis] 5 mg PO DAILY 03/01/23 11/18/23 Atorvastatin [Lipitor] 40 mg PO HS 03/01/23 11/18/23 Metoprolol Succinate (ER) [Toprol 50 mg PO DAILY 03/01/23 11/18/23 XL] Budesonide [Pulmicort] 1 mg INHALATION RT-BID 11/18/23 11/18/23 Budesonide/Formoterol Fumarate 2 puff INHALATION RT-BID 11/18/23 11/18/23 [Symbicort 160-4.5 Mcg Inhaler] HYDROcodone/APAP 10-325MG [[place] 1 tab PO QID 11/18/23 11/18/23 10-325] Ipratropium Nebulized [Atrovent 0.5 mg INHALATION RT-QID 11/18/23 11/18/23 Nebulized 0.2 MG/ML] Montelukast [Singulair] 10 mg PO HS 11/18/23 11/18/23 Omeprazole [PriLOSEC] 40 mg PO DAILY 11/18/23 11/18/23 Rivaroxaban [Xarelto] 10 mg PO DAILY 11/18/23 11/18/23 dilTIAZem HCL [Cardizem CD] 120 mg PO DAILY 11/18/23 11/18/23 Allergies Allergy/AdvReac Type Severity Reaction Status Date / Time No Known Allergies Allergy Verified 11/18/23 11:42 Review of Systems ROS Statement: Those systems with pertinent positive or pertinent negative responses have been documented in the HPI. ROS Other: All systems not noted in ROS Statement are negative. Past Medical History Past Medical History: Atrial Fibrillation, COPD, Diabetes Mellitus, GERD/Reflux, Hyperlipidemia, Hypertension, Musculoskeletal Disorder, Sleep Apnea/CPAP/BIPAP Additional Past Medical History / Comment(s): Pt recently hospitalized [facility] for afib/palpitations/difficulty breathing, NIDDM type II, muscle cramps, SU with current testing being done, DDD, spinal spondylosis, bilateral numbness down both arms to fingers, bilateral knees occasionally buckle/wears right knee brace at times, chronic pain. History of Any Multi-Drug Resistant Organisms: MRSA Date of last positivie culture/infection: 1999 MDRO Source:: face Past Surgical History: Appendectomy, Cholecystectomy, Orthopedic Surgery Additional Past Surgical History / Comment(s): Cervical fusion/cage with bone from hip, back surgery d/t congenital defect,. 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 Past Anesthesia/Blood Transfusion Reactions: Previous Problems w/ Anesthesia Additional Past Anesthesia/Blood Transfusion Reaction / Comment(s): "Combative when coming out anesthesia." Pt has never had a blood transfusion. Past Psychological History: Anxiety, Depression, PTSD Smoking Status: Former smoker - Past Family History Mother Family Medical History: Deep Vein Thrombosis (DVT) Sister(s) Family Medical History: Cancer Additional Family Medical History / Comment(s): Colon cancer X2 sisters. Father Family Medical History: Myocardial Infarction (NE) Additional Family Medical History / Comment(s): at 43 yrs of NE General Exam - General Exam Comments Initial Comments: GENERAL: Patient is well-developed and well-nourished. Patient is nontoxic and well- hydrated and is in no acute distress. Patient with fall sleep as soon as he stopped talking to him ENT: Neck is soft and supple. No significant lymphadenopathy is noted. Oropharynx is clear. Moist mucous membranes. Neck has full range of motion without eliciting any pain. EYES: The sclera were anicteric and conjunctiva were pink and moist. Extraocular movements were intact and pupils were equal round and reactive to light. Eyelids were unremarkable. PULMONARY: Unlabored respirations. Good breath sounds bilaterally. No audible rales rhonchi or wheezing was noted. CARDIOVASCULAR: There is a regular rate and rhythm without any murmurs gallops or rubs. ABDOMEN: Soft and nontender with normal bowel sounds. SKIN: Skin is clear with no lesions or rashes and otherwise unremarkable. NEUROLOGIC: Patient is alert and oriented x3. Cranial nerves II through XII are grossly intact. Motor and sensory are also intact. Normal speech, volume and content. Symmetrical smile. MUSCULOSKELETAL: Normal extremities with adequate strength and full range of motion. LYMPHATICS: No significant lymphadenopathy is noted PSYCHIATRIC: Normal psychiatric evaluation. 664 Limitations: no limitations Course Vital Signs 11/18/23 11/18/23 11/18/23 11:31 12:53 13:17 Temperature 97.9 F Pulse Rate 91 105 H 99 Respiratory 28 H 18 22 Rate Blood Pressure 145/108 196/131 141/120 O2 Sat by Pulse 95 85 L 93 L Oximetry 11/18/23 11/18/23 11/18/23 13:36 13:38 14:12 Temperature Pulse Rate 116 H 103 H Respiratory 24 26 H Rate Blood Pressure 183/140 179/116 O2 Sat by Pulse 87 L 91 L 91 L Oximetry 11/18/23 11/18/23 15:07 15:17 Temperature Pulse Rate 84 112 H Respiratory Rate Blood Pressure O2 Sat by Pulse Oximetry Medical Decision Making - Medical Decision Making EKG is interpreted by myself. EKG shows atrial fibrillation at 92 bpm QRS is under 40 QT interval 347 QTC is 397. Patient's EKG shows no ST segment elevation or depression. Was pt. sent in by a medical professional or institution (, PA, [employer], urgent care, hospital, or intermediate...) When possible be specific @ -No Did you speak to anyone other than the patient for history (EMS, parent, family, police, friend...)? What history was obtained from this source @ -EMS gave quite a bit of the history from family Did you review nursing and triage notes (agree or disagree)? Why? @ -I reviewed and agree with nursing and triage notes Were old charts reviewed (outside hosp., previous admission, EMS record, old EKG, old radiological studies, urgent care reports/EKG's, intermediate records)? Report findings @ -I reviewed prior charts in prior laboratory on this patient Differential Diagnosis (chest pain, altered mental status, abdominal pain women, abdominal pain men, vaginal bleeding, weakness, fever, dyspnea, syncope, headache, dizziness, GI bleed, back pain, seizure, CVA, palpatations, mental health, musculoskeletal)? @ -Differential Dyspnea: Coronary syndrome, arrhythmia, tamponade, asthma, COPD, pulmonary embolism, p neumonia, pneumothorax, pulmonary effusion, anaphylaxis, diabetic ketoacidosis, flailed chest, pulmonary contusion, diaphragmatic rupture, anemia, neuromuscular, this is not meant to be an all-inclusive list. Differential Chest Pain: Stable Angina, Unstable Angina, STEMI, NSTEMI Aortic Dissection, Pneumothorax, Musculoskeletal, Esophageal Spasm GERD, Cholecystitis, Pancreatitis, Zoster, this is not meant to be an all-inclusive list. EKG interpreted by me (3pts min.). @ -As above X-rays interpreted by me (1pt min.). @ -Chest x-ray is consistent with pulmonary edema CT interpreted by me (1pt min.). @ -CT of the brain and C-spine showed no acute abnormality U/S interpreted by me (1pt. min.). @ -None done What testing was considered but not performed or refused? (CT, X-rays, U/S, labs)? Why? @ -None What meds were considered but not given or refused? Why? @ -None Did you discuss the management of the patient with other professionals (professionals i.e. DrJohnnie, PA, [employer], lab, RT, psych nurse, oncology social work, category analyst, teacher, border patrol officer, telephonic nurse case manager)? Give summary @ -I spoke with Dr. Brito he agreed to admit the patient Was smoking cessation discussed for >3mins.? @ -No Was critical care preformed (if so, how long)? @ -No Were there social determinants of health that impacted care today? How? (Homelessness, low income, unemployed, alcoholism, drug addiction, transportation, low edu. Level, literacy, decrease access to med. care, long-term, rehab)? @ -No Was there de-escalation of care discussed even if they declined (Discuss DNR or withdrawal of care, Hospice)? DNR status @ -No What co-morbidities impacted this encounter? (DM, HTN, Smoking, COPD, CAD, Cancer, CVA, ARF, Chemo, Hep., AIDS, mental health diagnosis, sleep apnea, morbid obesity)? @ -None Was patient admitted / discharged? Hospital course, mention meds given and route, prescriptions, significant lab abnormalities, going to OR and other pertinent info. @ -Patient has some congestive heart failure patient was given Lasix Nitropaste emergency department. Patient had high blood pressure was given 5 hydralazine. Patient no longer had any chest pain after he was here for a while. Patient's computed tomography scan of the brain and C-spine were negative. Patient's cardiac enzymes are negative. I will admit the patient to Dr. Brito consult cardiology Undiagnosed new problem with uncertain prognosis? @ -No Drug Therapy requiring intensive monitoring for toxicity (Heparin, Nitro, Insulin, Cardizem)? @ -No Were any procedures done? @ -No Diagnosis/symptom? @ -Chest pain Acute, or Chronic, or Acute on Chronic? @ -Acute Uncomplicated (without systemic symptoms) or Complicated (systemic symptoms)? @ -Complicated Side effects of treatment? @ -No Exacerbation, Progression, or Severe Exacerbation? @ -No Poses a threat to life or bodily function? How? (Chest pain, [place], [place], pneumonia, PE, COPD, DKA, ARF, appy, cholecystitis, CVA, Diverticulitis, Homicidal, Suicidal, threat to staff... and all critical care pts) @ -Yes this did lead to an NE and an organ dysfunction Diagnosis/symptom? @ -Pulmonary edema Acute, or Chronic, or Acute on Chronic? @ -Acute Uncomplicated (without systemic symptoms) or Complicated (systemic symptoms)? @ -Complicated Side effects of treatment? @ -none Exacerbation, Progression, or Severe Exacerbation] @ -no Poses a threat to life or bodily function? @ -Yes this could lead to hypoxia and an organ dysfunction Diagnosis/symptom? @ -Hypertensive urgency Acute, or Chronic, or Acute on Chronic? @ -Acute Uncomplicated (without systemic symptoms) or Complicated (systemic symptoms)? @ -Complicated Side effects of treatment? @ -none Exacerbation, Progression, or Severe Exacerbation] @ -no Poses a threat to life or bodily function? @ -no - Lab Data Result diagrams: 11/18/23 11:42 11/18/23 11:42 Lab Results 11/18/23 11/18/23 11/18/23 Range/Units 11:42 11:42 11:42 WBC 9.6 (3.8-10.6) k/uL RBC 4.65 (4.30-5.90) m/uL Hgb 13.4 (13.0-17.5) gm/dL Hct 40.8 (39.0-53.0) % MCV 87.8 (80.0-100.0) fL MCH 28.9 (25.0-35.0) pg MCHC 33.0 (31.0-37.0) g/dL RDW 15.8 H (11.5-15.5) % Plt Count 314 (150-450) k/uL MPV 8.5 Neutrophils % 67 % Lymphocytes % 19 % Monocytes % 10 % Eosinophils % 3 % Basophils % 1 % Neutrophils # 6.4 (1.3-7.7) k/uL Lymphocytes # 1.8 (1.0-4.8) k/uL Monocytes # 0.9 (0-1.0) k/uL Eosinophils # 0.3 (0-0.7) k/uL Basophils # 0.1 (0-0.2) k/uL Hypochromasia Slight PT 11.6 (10.0-12.5) sec INR 1.1 (<1.2) APTT 20.3 L (22.0-30.0) sec D-Dimer 0.38 (<0.60) mg/L FEU VBG pH (7.31-7.41) VBG pCO2 (37-51) mmHg VBG HCO3 (24-28) mmol/L Sodium 137 (137-145) mmol/L Potassium 5.7 H (3.5-5.1) mmol/L Chloride 105 (98-107) mmol/L Carbon Dioxide 23 (22-30) mmol/L Anion Gap 9 mmol/L BUN 17 (9-20) mg/dL Creatinine 0.64 L (0.66-1.25) mg/dL Est GFR (CKD-EPI)AfAm >90 (>60 ml/min/1.73 sqM) Est GFR (CKD-EPI)NonAf >90 (>60 ml/min/1.73 sqM) Glucose 115 H (74-99) mg/dL Calcium 8.5 (8.4-10.2) mg/dL Magnesium 1.7 (1.6-2.3) mg/dL Total Bilirubin 1.1 (0.2-1.3) mg/dL AST 47 (17-59) U/L ALT 30 (4-49) U/L Alkaline Phosphatase 65 (38-126) U/L Troponin I (0.000-0.034) ng/mL NT-Pro-B Natriuret Pep pg/mL Total Protein 6.6 (6.3-8.2) g/dL Albumin 4.0 (3.5-5.0) g/dL 11/18/23 11/18/23 11/18/23 Range/Units 11:42 14:32 14:32 WBC (3.8-10.6) k/uL RBC (4.30-5.90) m/uL Hgb (13.0-17.5) gm/dL Hct (39.0-53.0) % MCV (80.0-100.0) fL MCH (25.0-35.0) pg MCHC (31.0-37.0) g/dL RDW (11.5-15.5) % Plt Count (150-450) k/uL MPV Neutrophils % % Lymphocytes % % Monocytes % % Eosinophils % % Basophils % % Neutrophils # (1.3-7.7) k/uL Lymphocytes # (1.0-4.8) k/uL Monocytes # (0-1.0) k/uL Eosinophils # (0-0.7) k/uL Basophils # (0-0.2) k/uL Hypochromasia PT (10.0-12.5) sec INR (<1.2) APTT (22.0-30.0) sec D-Dimer (<0.60) mg/L FEU VBG pH 7.33 (7.31-7.41) VBG pCO2 52 H (37-51) mmHg VBG HCO3 27 (24-28) mmol/L Sodium (137-145) mmol/L Potassium (3.5-5.1) mmol/L Chloride (98-107) mmol/L Carbon Dioxide (22-30) mmol/L Anion Gap mmol/L BUN (9-20) mg/dL Creatinine (0.66-1.25) mg/dL Est GFR (CKD-EPI)AfAm (>60 ml/min/1.73 sqM) Est GFR (CKD-EPI)NonAf (>60 ml/min/1.73 sqM) Glucose (74-99) mg/dL Calcium (8.4-10.2) mg/dL Magnesium (1.6-2.3) mg/dL Total Bilirubin (0.2-1.3) mg/dL AST (17-59) U/L ALT (4-49) U/L Alkaline Phosphatase (38-126) U/L Troponin I 0.018 (0.000-0.034) ng/mL NT-Pro-B Natriuret Pep 1750 pg/mL Total Protein (6.3-8.2) g/dL Albumin (3.5-5.0) g/dL Disposition Clinical Impression: Chest pain, Hypertensive urgency, Pulmonary edema Disposition: ADMITTED IP TO THIS HOSP Referrals: Deuce Brito MD [Primary Care Provider] - 1-2 days Time of Disposition: 15:34
[2023-11-18 12:59] LABS: Basophils # (A) 0.1 k/uL (0-0.2); Basophils % (A) 1 %; Eosinophils # (A) 0.3 k/uL (0-0.7); Eosinophils % (A) 3 %; HCT 40.8 % (39.0-53.0); HGB 13.4 gm/dL (13.0-17.5); Hypochromasia Slight; Lymphocytes # (A) 1.8 k/uL (1.0-4.8); Lymphocytes % (A) 19 %; MCH 28.9 pg (25.0-35.0); MCV 87.8 fL (80.0-100.0); Mean Platelet Volume 8.5; Monocytes # (A) 0.9 k/uL (0-1.0); Monocytes % (A) 10 %; Neutrophils # (A) 6.4 k/uL (1.3-7.7); Neutrophils % (A) 67 %; Platelet Count 314 k/uL (150-450); RBC 4.65 m/uL (4.30-5.90); RDW 15.8 % (11.5-15.5); WBC 9.6 k/uL (3.8-10.6)
[2023-11-18 13:01] LABS: INR 1.1 (<1.2); Prothrombin Time 11.6 sec (10.0-12.5)
--- NOTE | 2023-11-18 13:05 | CT ---
EXAMINATION TYPE: CT brain rocioine wo con DATE OF EXAM: 11/18/2023 COMPARISON: Cervical spine 03/11/2021 HISTORY: 58-year-old male trauma, pain, Got dizzy and fell, on Apmetrix CT DLP: 2022.3 mGycm Automated exposure control for dose reduction was used. Technique: Examination of the head was done in axial plane without intravenous contrast. Coronal and sagittal reconstructions performed. CT of the cervical spine was obtained in axial plane without intravenous injection of contrast mater ial. Coronal and sagittal reformatted images were obtained from the axial views for evaluation of f ractures, spinal alignment and canal. FINDINGS: Head: There is no evidence of acute intracranial hemorrhage, acute ischemic changes, mass, mass-effect, or extra-axial fluid collection. There is no effacement of cerebral sulci or basal subarachnoid cister ns. There is no hydrocephalus. There is no midline shift. Schrader-white matter distinction is preserv ed. Leftward nasal septal deviation. Old blowout fracture medial right orbital wall. Trace mucosal thicke ba ethmoid air cells. Mastoid air cells are well pneumatized. Cervical spine: Assessment of the cervical spine is markedly degraded by the patient moving. No cranial cervical junction abnormality or predental space widening. Degenerative change of the C1 d ens articulation. There are postsurgical change of ACDF from C3 through C7 levels and posterior cervical fusion from C2 through T2 levels. Laminectomy change along the levels of ACDF. There is a fixed grade 1 anterolisthesis along the fused C7-T1. No obvious displaced fracture is seen. Hyperostotic changes contribute to variable moderate neuroforaminal stenoses throughout. Sagittal and coronal reformatted images confirm above findings. COMBINED IMPRESSION: 1. No acute intracranial abnormality seen. 2. Very limited assessment of the cervical spine as the patient was moving. Extensive ACDF C3-C7 and extensive posterior cervical fusion from C2-T2 levels. Laminectomy along the ACDF levels. No displace d fracture is seen.
[2023-11-18 13:07] LABS: ALT 30 U/L (4-49); African American GFR (CKD) >90 (>60 ml/min/1.73 sqM); Anion Gap 9 mmol/L; Blood Urea Nitrogen 17 mg/dL (9-20); Calcium 8.5 mg/dL (8.4-10.2); Carbon Dioxide 23 mmol/L (22-30); Chloride 105 mmol/L (98-107); Glucose 115 mg/dL (74-99); Non-African American GFR(CKD) >90 (>60 ml/min/1.73 sqM); Sodium 137 mmol/L (137-145); Total Bilirubin 1.1 mg/dL (0.2-1.3); Total Protein 6.6 g/dL (6.3-8.2)
[2023-11-18 13:21] LABS: AST 47 U/L (17-59); Alkaline Phosphatase 65 U/L (38-126); Magnesium 1.7 mg/dL (1.6-2.3); Potassium 5.7 mmol/L (3.5-5.1)
[2023-11-18 13:26] LABS: Partial Thromboplastin Time 20.3 sec (22.0-30.0)
--- NOTE | 2023-11-18 13:36 | XR ---
EXAMINATION TYPE: XR chest 2V DATE OF EXAM: 11/18/2023 COMPARISON: 03/10/2021 HISTORY: 58-year-old male with chest pain TECHNIQUE: AP and lateral views FINDINGS: The heart is moderately enlarged. Diffuse interstitial and vascular density. Some Aleksandar B lines are also present. Prominent ACDF and posterior cervical fusion hardware. No sizable pleural effusion. IMPRESSION: CHF with cardiomegaly and interstitial pulmonary edema.
[2023-11-18] MEDS ORDERED: methylPREDNISolone SOD SUCCI 125 MG/2 ML VIAL IV STA (14:06)
[2023-11-18] MEDS ORDERED: IPRATROPIUM-ALBUTEROL 3 ML NEB INHALATION STA (14:06)
[2023-11-18] MEDS ORDERED: FUROSEMIDE 10 MG/ML 4 ML VIAL IV STA (14:08)
[2023-11-18 14:45] LABS: VBG PH 7.33 (7.31-7.41)
[2023-11-18] MEDS ORDERED: hydrALAZINE HCL 20 MG/ML 1 ML VIAL IVP STA (15:48)
[2023-11-18] MEDS: DILTIAZEM CD 120 MG CAP.ER.24H PO SCH (22:18)
[2023-11-18] MEDS: amLODIPine 10 MG TAB PO SCH (22:19)
[2023-11-18] MEDS: metFORMIN 500 MG TAB PO SCH (22:19)
[2023-11-18] MEDS: MONTELUKAST 10 MG TAB PO SCH (22:20)
[2023-11-18] MEDS: HYDROcodone/APAP 10-325MG 1 EACH TAB PO SCH (22:30)
[2023-11-18] MEDS: GABAPENTIN 400 MG CAP PO SCH (22:30)
[2023-11-19] MEDS: FUROSEMIDE 10 MG/ML 4 ML VIAL IV SCH ×3 (03:07→21:20)
[2023-11-19] MEDS ORDERED: ASPIRIN 325 MG TAB PO SCH (09:00)
[2023-11-19] MEDS ORDERED: METOPROLOL SUCCINATE (ER) 50 MG TAB.ER.24H PO SCH (09:00)
[2023-11-19] MEDS: HYDROcodone/APAP 10-325MG 1 EACH TAB PO SCH ×4 (10:21→21:19)
[2023-11-19] MEDS: DILTIAZEM CD 120 MG CAP.ER.24H PO SCH (10:22)
[2023-11-19] MEDS: amLODIPine 10 MG TAB PO SCH (10:22)
[2023-11-19] MEDS: PARoxetine 20 MG TAB PO SCH (10:22)
[2023-11-19] MEDS: GABAPENTIN 400 MG CAP PO SCH ×4 (10:22→21:18)
[2023-11-19] MEDS: metFORMIN 500 MG TAB PO SCH ×2 (10:22→17:04)
--- NOTE | 2023-11-19 10:30 | P.CRDCN ---
History of Present Illness Consult date: 11/19/23 History of present illness: History of Present Illness: The patient is a 58-year-old male with a history of hypertension, hyperlipidemia, diabetes and chronic persistent atrial fibrillation who presented with symptoms of dyspnea and cough. He has been complaining of dys pnea for a week, worse today. He has a history of chronic tobacco use. He has underwent cardioversion in February that was successful in restoring sinus mechanism but shortly after reverted to atrial fibrillation and has been evaluated to undergo ablation following his back surgery. The patient denies any PND, orthopnea or peripheral edema. He has no chest discomfort. He denies any dizziness or palpitations. He is unaware of the atrial fibrillation. His echocardiogram showed an ejection fraction of 50-55% and his MPI showed no evidence of stress-induced ischemia. His coronary risk factors are positive for hypertension, hyperlipidemia, diabetes and chronic tobacco use. Medications: Amlodipine 10 mg daily, atorvastatin 40 mg daily, gabapentin, losartan 50 mg daily, metformin,Xarelto 20 mg daily Review of Systems: Respiratory: Dyspnea on exertion, cough and wheezing GI: No nausea or vomiting . No history of peptic ulcer disease. No recent GI bleed. : No hematuria or dysuria. Nervous System: No stroke or seizure. Physical Examination: 4-year-old male, alert and oriented no apparent distress ,Blood pressure 125/90, Heart rate 120 Head: Normocephalic. Eyes: Sclerae nonicteric. Neck: Good carotid upstroke, no bruit, no jugular venous distention. Lungs: Decreased breath sounds bilaterally with rhonchi Heart: Irregular rate and rhythm, S1-S2, no S3, no rub. No murmur. Abdomen: Soft nontender, positive bowel sounds no organomegaly. Extremities: No edema, intact distal pulses. Labs: Hemoglobin 13.4, potassium 5.7, BUN 17, creatinine 0.64. Troponin 0.018. NT proBNP 1750. Chest x-ray with mild CHF EKG: Atrial fibrillation with nonspecific ST-T wave changes Impression: 1. Progressive dyspnea with a combination of exacerbation of COPD and mild CHF with preserved systolic function 2. Chronic persistent atrial fibrillation, scheduled to undergo ablation 3. Hypertension 4. Hyperlipidemia 5. Chronic tobacco use 6. History of diabetes Plan: 1. Stop IV Cardizem 2. Start beta rylan 3. Continue anticoagulation 4. IV diuresis for 24 hours 5. Smoking cessation 6. Depending on his progress further recommendations will be made, thank you for this consult we will follow with you. Past Medical History Past Medical History: Atrial Fibrillation, COPD, Diabetes Mellitus, GERD/Reflux, Hyperlipidemia, Hypertension, Musculoskeletal Disorder, Sleep Apnea/CPAP/BIPAP Additional Past Medical History / Comment(s): Pt recently hospitalized [facility] for afib/palpitations/difficulty breathing, NIDDM type II, muscle cramps, SU with current testing being done, DDD, spinal spondylosis, bilateral numbness down both arms to fingers, bilateral knees occasionally buckle/wears right knee brace at times, chronic pain. History of Any Multi-Drug Resistant Organisms: MRSA Date of last positivie culture/infection: 1999 MDRO Source:: face Past Surgical History: Appendectomy, Cholecystectomy, Orthopedic Surgery Additional Past Surgical History / Comment(s): Cervical fusion/cage with bone from hip, back surgery d/t congenital defect,. 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 Past Anesthesia/Blood Transfusion Reactions: Previous Problems w/ Anesthesia Additional Past Anesthesia/Blood Transfusion Reaction / Comment(s): "Combative when coming out anesthesia." Pt has never had a blood transfusion. Past Psychological History: Anxiety, Depression, PTSD Smoking Status: Former smoker - Past Family History Mother Family Medical History: Deep Vein Thrombosis (DVT) Sister(s) Family Medical History: Cancer Additional Family Medical History / Comment(s): Colon cancer X2 sisters. Father Family Medical History: Myocardial Infarction ([place]) Additional Family Medical History / Comment(s): at 43 yrs of [place] Medications and Allergies Home Medications Medication Instructions Recorded Confirmed Type PARoxetine HCL [Paxil] 40 mg PO DAILY 12/21/19 11/18/23 History amLODIPine [Norvasc] 10 mg PO DAILY 12/21/19 11/18/23 History buPROPion HCL [buPROPion HCL SR] 150 mg PO BID 12/21/19 11/18/23 History metFORMIN HCL [Glucophage] 500 mg PO BID 12/21/19 11/18/23 History Gabapentin 800 mg PO QID 11/06/22 11/18/23 History Apixaban [Eliquis] 5 mg PO DAILY 03/01/23 11/18/23 History Atorvastatin [Lipitor] 40 mg PO HS 03/01/23 11/18/23 History Metoprolol Succinate (ER) [Toprol 50 mg PO DAILY 03/01/23 11/18/23 History XL] Budesonide [Pulmicort] 1 mg INHALATION RT-BID 11/18/23 11/18/23 History Budesonide/Formoterol Fumarate 2 puff INHALATION RT-BID 11/18/23 11/18/23 History [Symbicort 160-4.5 Mcg Inhaler] HYDROcodone/APAP 10-325MG [[place] 1 tab PO QID 11/18/23 11/18/23 History 10-325] Ipratropium Nebulized [Atrovent 0.5 mg INHALATION RT-QID 11/18/23 11/18/23 H istory Nebulized 0.2 MG/ML] Montelukast [Singulair] 10 mg PO HS 11/18/23 11/18/23 History Omeprazole [PriLOSEC] 40 mg PO DAILY 11/18/23 11/18/23 History Rivaroxaban [Xarelto] 10 mg PO DAILY 11/18/23 11/18/23 History dilTIAZem HCL [Cardizem CD] 120 mg PO DAILY 11/18/23 11/18/23 History Allergies Allergy/AdvReac Type Severity Reaction Status Date / Time No Known Allergies Allergy Verified 11/18/23 11:42 Physical Exam Vitals: Vital Signs Temp Pulse Resp BP Pulse Ox 11/19/23 02:00 111 H 18 112/88 97 11/18/23 22:32 120 H 18 125/95 97 11/18/23 21:38 110 H 142/106 95 11/18/23 18:59 112 H 22 153/128 94 L 11/18/23 17:30 142/97 11/18/23 17:16 101 H 22 149/107 95 11/18/23 15:20 108 H 24 143/101 94 L 11/18/23 15:17 112 H 11/18/23 15:07 84 11/18/23 14:12 103 H 26 H 179/116 91 L 11/18/23 13:38 91 L 11/18/23 13:36 116 H 24 183/140 87 L 11/18/23 13:17 99 22 141/120 93 L 11/18/23 12:53 105 H 18 196/131 85 L 11/18/23 11:31 97.9 F 91 28 H 145/108 95 Intake and Output 11/18/23 11/19/23 11/19/23 22:59 06:59 14:59 Output Total 1550 900 Balance -1550 -900 Output: Urine 1550 900 Male - External 1550 900 Results 11/18/23 11:42 11/18/23 11:42 Cardiac Enzymes 11/18/23 11/18/23 Range/Units 11:42 11:42 AST 47 (17-59) U/L Troponin I 0.018 (0.000-0.034) ng/mL Coagulation 11/18/23 Range/Units 11:42 PT 11.6 (10.0-12.5) sec APTT 20.3 L (22.0-30.0) sec CBC 11/18/23 Range/Units 11:42 WBC 9.6 (3.8-10.6) k/uL RBC 4.65 (4.30-5.90) m/uL Hgb 13.4 (13.0-17.5) gm/dL Hct 40.8 (39.0-53.0) % Plt Count 314 (150-450) k/uL Comprehensive Metabolic Panel 11/18/23 Range/Units 11:42 Sodium 137 (137-145) mmol/L Potassium 5.7 H (3.5-5.1) mmol/L Chloride 105 (98-107) mmol/L Carbon Dioxide 23 (22-30) mmol/L BUN 17 (9-20) mg/dL Creatinine 0.64 L (0.66-1.25) mg/dL Glucose 115 H (74-99) mg/dL Calcium 8.5 (8.4-10.2) mg/dL AST 47 (17-59) U/L ALT 30 (4-49) U/L Alkaline Phosphatase 65 (38-126) U/L Total Protein 6.6 (6.3-8.2) g/dL Albumin 4.0 (3.5-5.0) g/dL Current Medications Generic Name Dose Route Start Last Admin Trade Name Freq PRN Reason Stop Dose Admin Hydrocodone Bitart/Acetaminophen 1 each 11/18/23 22:00 11/19/23 10:21 Hydrocodone/Apap 10-325mg 1 Each Tab PO 1 each QID FROILAN Administration Amlodipine Besylate 10 mg 11/18/23 20:45 11/18/23 22:19 Amlodipine 10 Mg Tab PO 10 mg DAILY FROILAN Administration Aspirin 325 mg 11/19/23 09:00 Aspirin 325 Mg Tab PO DAILY FROILAN Diltiazem HCl 120 mg 11/18/23 20:45 11/18/23 22:18 Diltiazem Cd 120 Mg Cap.Er.24h PO 120 mg DAILY FROILAN Administration Furosemide 40 mg 11/19/23 00:00 11/19/23 03:07 Furosemide 10 Mg/Ml 4 Ml Vial IV Not Given Q8H FROILAN Gabapentin 800 mg 11/18/23 22:00 11/19/23 10:22 Gabapentin 400 Mg Cap PO 800 mg QID FROILAN Administration Metformin HCl 500 mg 11/18/23 21:00 11/18/23 22:19 Metformin 500 Mg Tab PO 500 mg AC-BID FROILAN Administration Metoprolol Succinate 50 mg 11/19/23 09:00 Metoprolol Succinate (Er) 50 Mg Tab.Er.24h PO DAILY FROILAN Montelukast Sodium 10 mg 11/18/23 21:00 11/18/23 22:20 Montelukast 10 Mg Tab PO 10 mg HS FROILAN Administration Paroxetine HCl 40 mg 11/19/23 09:00 Paroxetine 20 Mg Tab PO DAILY FROILAN Intake and Output 11/18/23 11/19/23 11/19/23 22:59 06:59 14:59 Output Total 1550 900 Balance -1550 -900 Output: Urine 1550 900 Male - External 1550 900 11/18/23 11:42 11/18/23 11:42
[2023-11-19] MEDS ORDERED: SYMBICORT 160-4.5 MCG INHALER INHALATION SCH ×2 (10:33→20:00)
[2023-11-19] MEDS ORDERED: BUDESONIDE 1 MG/2 ML NEBU INHALATION SCH (10:33)
[2023-11-19] MEDS: ATORVASTATIN 40 MG TAB PO SCH (11:59)
[2023-11-19] MEDS: PANTOPRAZOLE 40 MG TABLET PO SCH (11:59)
[2023-11-19] MEDS: DAPAGLIFLOZIN PROPANEDIOL 10 MG TABLET PO SCH (12:00)
[2023-11-19] MEDS: buPROPion SR 150 MG TABLET.ER PO SCH ×2 (12:00→21:18)
[2023-11-19] MEDS ORDERED: NALOXONE 0.4 MG/ML 1 ML VIAL IV PRN (12:12)
[2023-11-19] MEDS ORDERED: MELATONIN 3 MG TABLET PO PRN (12:12)
[2023-11-19] MEDS ORDERED: ALPRAZolam 0.25 MG TAB PO PRN (12:12)
[2023-11-19] MEDS ORDERED: ONDANSETRON 4 MG/2 ML VIAL IVP PRN (12:12)
[2023-11-19] MEDS ORDERED: CALCIUM CARBONATE 500 MG CHEWABLE PO PRN (12:12)
[2023-11-19] MEDS ORDERED: LACTULOSE 20 GM/30 ML CUP PO PRN (12:12)
[2023-11-19] MEDS ORDERED: ACETAMINOPHEN TAB 325 MG TAB PO PRN (12:12)
[2023-11-19] MEDS: IPRATROPIUM 0.5 MG/2.5 ML NEBU INHALATION SCH ×3 (12:13→21:33)
[2023-11-19] MEDS: methylPREDNISolone SOD SUCCI 40 MG/ML 1 ML VIAL IV SCH ×3 (14:00→23:38)
[2023-11-19] MEDS: guaiFENesin 600 MG TABLET.ER PO SCH ×3 (14:00→21:19)
[2023-11-19] MEDS: NICOTINE 21MG/24HR PATCH TRANSDERM SCH (14:00)
[2023-11-19 16:28] LABS: Glucose,Whole Blood 185 mg/dL (70-110)
[2023-11-19] MEDS ORDERED: RIVAROXABAN 20 MG TAB PO SCH (17:30)
--- NOTE | 2023-11-19 19:54 | P.HPIM ---
History of Present Illness H&P Date: 11/19/23 Chief Complaint: Short of breath This is a 58-year-old patient who follows with Dr. Deuce Brito. I'm rounding for Dr. Deuce Brito Patient has multiple medical problems. Presents with increasing shortness of breath with activity even walking about 10 feet. No fever no chills. Wheezing. Has been a smoker up to about a week ago. Appetite is fair. Questionable mesha st discomfort. Patient is disabled. Lives with his ex-. Smoked for a long time. Denies any edema. No obvious orthopnea. Review of systems: GEN.: Tired EYES: None HEENT: None NECK: None RESPIRATORY: As above CARDIOVASCULAR: As above GASTROINTESTINAL: None GENITOURINARY: None MUSCULOSKELETAL: None LYMPHATICS: None HEMATOLOGICAL: None PSYCHIATRY: None NEUROLOGICAL: None Past medical history to include: Ht fibrillation, COPD, diabetes, GERD, hypertension, hyperlipidemia, obstructive sleep apnea, spondylosis, anxiety depression Social history: This is his ex-. Patient smoked for 43 years stopped week ago. Have finished a pack a day. Also does marijuana and the formal smoking and intervals. Physical examination: VITAL SIGNS: 97.9, 105, 18, 140/100, 85% on 3 L upon presentation GENERAL: BMI 39.5, declining but awake tired. EYES: Pupils equal. Conjunctiva normal. HEENT: External appearance of nose and ears normal, oral cavity grossly normal. NECK: JVD unable to assess; masses not palpable. HEART: First and second heart sounds are normal; no edema. LUNGS: Respiratory rate increased, diminished breath sound Protonix patient. ABDOMEN: Soft, nontender, liver spleen not palpable, no masses palpable. PSYCH: Alert and oriented x3; mood and affect normal. MUSCULOSKELETAL:No Clubbing/cyanosis;muscles-grossly intact NEUROLOGICAL: Cranial nerves grossly intact; no facial asymmetry, power and sensation grossly intact. LYMPHATICS: No lymph nodes palpable in the axilla and neck INVESTIGATIONS, reviewed in the clinical context: White count 9.60 globin 30.4 platelets 314 sodium 137 potassium 5.7 creatinine 0.64 Troponin I 0.018. ProBNP 1750 EKG tracing personally reviewed by me-atrial fibrillation. Rate 92 Chest x-ray film personally reviewed by me-cardiomegaly, venous prominence Assessment and plan: -Acute congestive heart failure exacerbation. EF not known. 2-D echocardiogram. IV Lasix 40 mg every 12 Sodium chloride restricted 2000 mL a day. Follow with cardiology -Acute COPD exacerbation in a current smoker Atrovent. IV Solu-Medrol. Nebulized Perforomist and Pulmicort -Obesity BMI 39.5 Weight loss measures -Persistent atrial fibrillation, rate controlled Xarelto. Toprol-XL 50 mg twice a day -Chronic nicotine dependence cigarette smoker Nicotine patch -Hyperlipidemia Lipitor 40 mg daily at bedtime -Essential hypertension Toprol-XL 50 mg twice a day. -Diabetes mellitus type 2 on oral hypoglycemic Follow Accu-Cheks with sliding scale -Obstructive sleep apnea-testing of the abdomen. Pending CPAP -Primary osteoarthritis -Full code 2-D echocardiogram. IV Lasix. Bronchodilators steroids. Discussed with patient. Past Medical History Past Medical History: Atrial Fibrillation, COPD, Diabetes Mellitus, GERD/Reflux, Hyperlipidemia, Hypertension, Musculoskeletal Disorder, Sleep Apnea/CPAP/BIPAP Additional Past Medical History / Comment(s): Pt recently hospitalized [facility] for afib/palpitations/difficulty breathing, NIDDM type II, muscle cramps, SU with current testing being done, DDD, spinal spondylosis, bilateral numbness down both arms to fingers, bilateral knees occasionally buckle/wears right knee brace at times, chronic pain. History of Any Multi-Drug Resistant Organisms: MRSA Date of last positivie culture/infection: 1999 MDRO Source:: face Past Surgical History: Appendectomy, Cholecystectomy, Orthopedic Surgery Additional Past Surgical History / Comment(s): Cervical fusion/cage with bone from hip, back surgery d/t congenital defect,. 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 Past Anesthesia/Blood Transfusion Reactions: Previous Problems w/ Anesthesia Additional Past Anesthesia/Blood Transfusion Reaction / Comment(s): "Combative when coming out anesthesia." Pt has never had a blood transfusion. Past Psychological History: Anxiety, Depression, PTSD Smoking Status: Former smoker - Past Family History Mother Family Medical History: Deep Vein Thrombosis (DVT) Sister(s) Family Medical History: Cancer Additional Family Medical History / Comment(s): Colon cancer X2 sisters. Father Family Medical History: Myocardial Infarction ([place]) Additional Family Medical History / Comment(s): at 43 yrs of [place] Medications and Allergies Home Medications Medication Instructions Recorded Confirmed Type PARoxetine HCL [Paxil] 40 mg PO DAILY 12/21/19 11/18/23 History amLODIPine [Norvasc] 10 mg PO DAILY 12/21/19 11/18/23 History buPROPion HCL [buPROPion HCL SR] 150 mg PO BID 12/21/19 11/18/23 History metFORMIN HCL [Glucophage] 500 mg PO BID 12/21/19 11/18/23 History Gabapentin 800 mg PO QID 11/06/22 11/18/23 History Apixaban [Eliquis] 5 mg PO DAILY 03/01/23 11/18/23 History Atorvastatin [Lipitor] 40 mg PO HS 03/01/23 11/18/23 History Metoprolol Succinate (ER) [Toprol 50 mg PO DAILY 03/01/23 11/18/23 History XL] Budesonide [Pulmicort] 1 mg INHALATION RT-BID 11/18/23 11/18/23 History Budesonide/Formoterol Fumarate 2 puff INHALATION RT-BID 11/18/23 11/18/23 History [Symbicort 160-4.5 Mcg Inhaler] HYDROcodone/APAP 10-325MG [[place] 1 tab PO QID 11/18/23 11/18/23 History 10-325] Ipratropium Nebulized [Atrovent 0.5 mg INHALATION RT-QID 11/18/23 11/18/23 History Nebulized 0.2 MG/ML] Montelukast [Singulair] 10 mg PO HS 11/18/23 11/18/23 History Omeprazole [PriLOSEC] 40 mg PO DAILY 11/18/23 11/18/23 History Rivaroxaban [Xarelto] 10 mg PO DAILY 11/18/23 11/18/23 History dilTIAZem HCL [Cardizem CD] 120 mg PO DAILY 11/18/23 11/18/23 History Allergies Allergy/AdvReac Type Severity Reaction Status Date / Time No Known Allergies Allergy Verified 11/18/23 11:42 Physical Exam Vitals: Vital Signs Temp Pulse Resp BP Pulse Ox 11/19/23 02:00 111 H 18 112/88 97 11/18/23 22:32 120 H 18 125/95 97 11/18/23 21:38 110 H 142/106 95 11/18/23 18:59 112 H 22 153/128 94 L 11/18/23 17:30 142/97 11/18/23 17:16 101 H 22 149/107 95 11/18/23 15:20 108 H 24 143/101 94 L 11/18/23 15:17 112 H 11/18/23 15:07 84 11/18/23 14:12 103 H 26 H 179/116 91 L 11/18/23 13:38 91 L 11/18/23 13:36 116 H 24 183/140 87 L 11/18/23 13:17 99 22 141/120 93 L 11/18/23 12:53 105 H 18 196/131 85 L 11/18/23 11:31 97.9 F 91 28 H 145/108 95 Intake and Output 11/18/23 11/19/23 11/19/23 22:59 06:59 14:59 Output Total 1550 900 Balance -1550 -900 Output: Urine 1550 900 Male - External 1550 900 Results CBC & Chem 7: 11/18/23 11:42 11/18/23 11:42 Labs: Abnormal Lab Results - Last 24 Hours (Table) 11/18/23 11/18/23 11/18/23 Range/Units 11:42 11:42 11:42 RDW 15.8 H (11.5-15.5) % APTT 20.3 L (22.0-30.0) sec VBG pCO2 (37-51) mmHg Potassium 5.7 H (3.5-5.1) mmol/L Creatinine 0.64 L (0.66-1.25) mg/dL Glucose 115 H (74-99) mg/dL 11/18/23 Range/Units 14:32 RDW (11.5-15.5) % APTT (22.0-30.0) sec VBG pCO2 52 H (37-51) mmHg Potassium (3.5-5.1) mmol/L Creatinine (0.66-1.25) mg/dL Glucose (74-99) mg/dL
[2023-11-19 20:06] LABS: Glucose,Whole Blood 171 mg/dL (70-110)
[2023-11-19 20:40] LABS: African American GFR (CKD) 82 (>60 ml/min/1.73 sqM); Anion Gap 15 mmol/L; Blood Urea Nitrogen 24 mg/dL (9-20); Calcium 9.7 mg/dL (8.4-10.2); Carbon Dioxide 22 mmol/L (22-30); Chloride 101 mmol/L (98-107); Glucose 152 mg/dL (74-99); Non-African American GFR(CKD) 71 (>60 ml/min/1.73 sqM); Potassium 4.5 mmol/L (3.5-5.1); Sodium 138 mmol/L (137-145)
[2023-11-19] MEDS: METOPROLOL SUCCINATE (ER) 50 MG TAB.ER.24H PO SCH (21:18)
[2023-11-19] MEDS: MONTELUKAST 10 MG TAB PO SCH (21:19)
[2023-11-19] MEDS: BUDESONIDE 1 MG/2 ML NEBU INHALATION SCH (21:33)
[2023-11-19] MEDS: FORMOTEROL FUMARATE 20 MCG/2 ML NEBU INHALATION SCH (21:33)
[2023-11-20 05:55] LABS: Glucose,Whole Blood 172 mg/dL (70-110)
[2023-11-20] MEDS: metFORMIN 500 MG TAB PO SCH (06:42)
--- NOTE | 2023-11-20 08:08 | CA ---
Transthoracic Echo Report Name: Kvng Molina Age: 58 Gender: M : 1965 Exam Date: 11/19/2023 14:43 Exam Location: [facility] Ht (in): 68 Wt (lb): 260 Ordering Physician: Clarisse Gaffney Attending/Referring Phys: [id number], Yeimy Grid Maker Angelika Macdonald RDCS Procedure CPT: Indications: Chest Pain Cardiac Hx: Technical Quality: Technically difficult study Contrast 1: Definity Total Dose (mL): 2 Contrast 2: Total Dose (mL): MEASUREMENTS (Male / Female) Normal Values 2D ECHO LV Diastolic Diameter PLAX 3.8 cm 4.2 - 5.9 / 3.9 - 5.3 cm LV Systolic Diameter PLAX 2.8 cm IVS Diastolic Thickness 1.9 cm 0.6 - 1.0 / 0.6 - 0.9 cm LVPW Diastolic Thickness 1.7 cm 0.6 - 1.0 / 0.6 - 0.9 cm LV Relative Wall Thickness 1.0 RV Internal Dim ED PLAX 4.2 cm LA Volume 93.9 cm??? 18 - 58 / 22 - 52 cm??? LA Volume Index 38.6 cm???/m??? 16 - 28 cm???/m??? M-MODE Aortic Root Diameter MM 3.9 cm LA Systolic Diameter MM 5.1 cm LA Ao Ratio MM 1.3 AV Cusp Separation MM 1.9 cm DOPPLER AV Peak Velocity 138.0 cm/s AV Peak Gradient 7.6 mmHg AV Mean Velocity 81.1 cm/s AV Mean Gradient 3.2 mmHg AV Velocity Time Integral 22.5 cm LVOT Peak Velocity 105.8 cm/s LVOT Peak Gradient 4.5 mmHg LVOT Velocity Time Integral 20.2 cm MV Area PHT 3.3 cm??? Mitral E Point Velocity 122.6 cm/s Mitral A Point Velocity 0.7 cm/s Mitral E to A Ratio 173.1 MV Deceleration Time 227.0 ms MV E' Velocity 7.2 cm/s Mitral E to MV E' Ratio 17.0 FINDINGS Left Ventricle Moderately increased left ventricular wall thickness. Left ventricular cavity size normal. No obvious regional wall motion abnormalities. Left ventricular ejection fraction is estimated at 50-55 %. Right Ventricle Mild right ventricular dilatation. Right Atrium Normal right atrial size. Left Atrium Moderately increased left atrial volume. Mildly increased left atrial area. Mitral Valve Structurally normal mitral valve. Mild mitral annular calcification. Mitral valve thickened. Mild mitral regurgitation. Aortic Valve No aortic valve stenosis or regurgitation. Tricuspid Valve Structurally normal tricuspid valve. Trace to mild tricuspid regurgitation. Pulmonic Valve Structurally normal pulmonic valve. Pericardium No pericardial effusion. Aorta Normal size aortic root and proximal ascending aorta. CONCLUSIONS Left ventricular ejection fraction 50-55% Moderately increased left ventricular wall thickness Mild right ventricular dilation Moderately dilated left atrium Mild mitral calcification Mild mitral regurgitation Previewed by: Dr. Luis Carlos Kim DO (Electronically Signed) Final Date: 20 November 2023 08:08
[2023-11-20 08:18] LABS: African American GFR (CKD) >90 (>60 ml/min/1.73 sqM); Anion Gap 13 mmol/L; Blood Urea Nitrogen 29 mg/dL (9-20); Calcium 9.7 mg/dL (8.4-10.2); Carbon Dioxide 25 mmol/L (22-30); Chloride 100 mmol/L (98-107); Glucose 175 mg/dL (74-99); Non-African American GFR(CKD) >90 (>60 ml/min/1.73 sqM); Potassium 4.1 mmol/L (3.5-5.1); Sodium 138 mmol/L (137-145)
[2023-11-20] MEDS: FORMOTEROL FUMARATE 20 MCG/2 ML NEBU INHALATION SCH (08:32)
[2023-11-20] MEDS: BUDESONIDE 1 MG/2 ML NEBU INHALATION SCH (08:32)
[2023-11-20] MEDS: IPRATROPIUM 0.5 MG/2.5 ML NEBU INHALATION SCH ×2 (08:32→11:36)
[2023-11-20] MEDS: methylPREDNISolone SOD SUCCI 40 MG/ML 1 ML VIAL IV SCH (09:05)
[2023-11-20] MEDS: PANTOPRAZOLE 40 MG TABLET PO SCH (09:06)
[2023-11-20] MEDS: GABAPENTIN 400 MG CAP PO SCH (09:06)
[2023-11-20] MEDS: ATORVASTATIN 40 MG TAB PO SCH (09:06)
[2023-11-20] MEDS: PARoxetine 20 MG TAB PO SCH (09:06)
[2023-11-20] MEDS: METOPROLOL SUCCINATE (ER) 50 MG TAB.ER.24H PO SCH (09:06)
[2023-11-20] MEDS: HYDROcodone/APAP 10-325MG 1 EACH TAB PO SCH (09:06)
[2023-11-20] MEDS: guaiFENesin 600 MG TABLET.ER PO SCH (09:06)
[2023-11-20] MEDS: FUROSEMIDE 10 MG/ML 4 ML VIAL IV SCH (09:06)
[2023-11-20] MEDS: buPROPion SR 150 MG TABLET.ER PO SCH (09:07)
[2023-11-20] MEDS: DAPAGLIFLOZIN PROPANEDIOL 10 MG TABLET PO SCH (09:08)
[2023-11-20] MEDS: NICOTINE 21MG/24HR PATCH TRANSDERM SCH (09:08)
[2023-11-20 10:36] VITALS: BP 133/95; RESP 18; TEMP 97.9
--- NOTE | 2023-11-20 11:40 | P.PN ---
Subjective HISTORY OF PRESENT ILLNESS: 11/19/2023 The patient is a 58-year-old male with a history of hypertension, hyperlipidemia, diabetes and chronic persistent atrial fibrillation who presented with symptoms of dyspnea and cough. He has been complaining of dyspnea for a week, worse today. He has a history of chronic tobacco use. He has underwent cardioversion in February that was successful in restoring sinus mechanism but shortly after reverted to atrial fibrillation and has been evaluated to undergo ablation following his back surgery. The patient denies any PND, orthopnea or peripheral edema. He has no chest discomfort. He denies any dizziness or palpitations. He is unaware of the atrial fibrillation. His echocardiogram showed an ejection fraction of 50-55% and his MPI showed no evidence of stress-induced ischemia. His coronary risk factors are positive for hypertension, hyperlipidemia, diabetes and chronic tobacco use. Medications: Amlodipine 10 mg daily, atorvastatin 40 mg daily, gabapentin, losartan 50 mg daily, metformin,Xarelto 20 mg daily 11/20/2023 Patient examined this morning at the bedside. Patient currently denies chest pain or pressure. He denies shortness of breath. He remains on IV Lasix 40 mg every 12 hours. Telemetry reveals atrial fibrillation with controlled ventricular rate. PHYSICAL EXAM: VITAL SIGNS: Reviewed. GENERAL: Well-developed in no acute distress. NECK: Supple. No JVD or thyromegaly LUNGS: Respirations even and unlabored. Lungs essentially clear to auscultation bilaterally. HEART: Irregular rate and rhythm. S1 and S2 heard. EXTREMITIES: Normal range of motion. No clubbing or cyanosis. Peripheral pulses intact. No lower extremity edema ASSESSMENT: Progressive dyspnea with accommodation of exacerbation of COPD and mild CHF with preserved EF Persistent atrial fibrillation scheduled to undergo ablation in near future Hypertension Hyperlipidemia Diabetes Nicotine dependence PLAN: Discontinue IV Lasix Begin oral Lasix 40 mg daily Continue additional cardiac medications Patient is currently stable from a cardiac perspective Patient to follow-up post discharge with Dr. Menard Nurse practitioner note has been reviewed by physician. Signing provider agrees with the documented findings, assessment, and plan of care. Objective - Vital Signs Vital signs: Vital Signs Temp 97.9 F 11/20/23 09:05 Pulse 86 11/20/23 09:05 Resp 18 11/20/23 09:05 BP 133/95 11/20/23 09:05 Pulse Ox 97 11/20/23 09:05 FiO2 Intake & Output 11/19/23 11/20/23 11/20/23 18:59 06:59 18:59 Intake Total 358 702 Output Total 2525 500 Balance 358 -2525 202 Weight 117.934 kg 106.1 kg Intake: Oral 358 702 Output: Urine 2525 500 Other: # Voids 1 1 # Bowel Movements 1 - Labs CBC & Chem 7: 11/18/23 11:42 11/20/23 07:23 Labs: Abnormal Lab Results - Last 24 Hours (Table) 11/19/23 11/19/23 11/19/23 Range/Units 16:26 19:57 20:05 BUN 24 H (9-20) mg/dL Glucose 152 H (74-99) mg/dL POC Glucose (mg/dL) 185 H 171 H (70-110) mg/dL 11/20/23 11/20/23 Range/Units 05:54 07:23 BUN 29 H (9-20) mg/dL Glucose 175 H (74-99) mg/dL POC Glucose (mg/dL) 172 H (70-110) mg/dL
[2023-11-20 11:52] VITALS: PULSE 80
--- NOTE | 2023-11-20 19:11 | P.DS ---
Providers Date of admission: 11/18/23 15:36 Expected date of discharge: 11/20/23 Attending physician: Deuce Brito Consults: 11/18/23 15:34 Consult Physician Routine Consulting Provider: [facility] Consult Reason/Comments: Chest pain, hypertensive urgency Do you want consulting provider notified?: Yes Primary care physician: Deuce Pandyatnceasar [facility] Course: Chief Complaint: Short of breath This is a 58-year-old patient who follows with Dr. Deuce Brito. I'm rounding for Dr. Deuce Brito Patient has multiple medical problems. Presents with increasing shortness of breath with activity even walking about 10 feet. No fever no chills. Wheezing. Has been a smoker up to about a week ago. Appetite is fair. Questionable chest discomfort. Patient is disabled. Lives with his ex-. Smoked for a long time. Denies any edema. No obvious orthopnea. 11/20/2023: Admitted with acute COPD exacerbation and CHF exacerbation. Was put on steroids bronchodilators with Lasix. This morning doing much better. Up and about. Breathing much improved. Counseled about smoking. Seen by cardiology. Patient placed on Farxiga. Prednisone taper. Apparently patient is taking both eliquis and xarelto at home. Reminded not to take eliquis. Nicotine patch. Discussion and discharge planning more than 35 minutes Past medical history to include: Ht fibrillation, COPD, diabetes, GERD, hypertension, hyperlipidemia, obstructive sleep apnea, spondylosis, anxiety depression Social history: This is his ex-. Patient smoked for 43 years stopped week ago. Have finished a pack a day. Also does marijuana and the formal smoking and intervals. Physical examination: VITAL SIGNS: 87.9, 86, 18, 133/95, 97% room air GENERAL: Laying of more comfortable EYES: Pupils equal. Conjunctiva normal. HEENT: External appearance of nose and ears normal, oral cavity grossly normal. NECK: JVD unable to assess; masses not palpable. HEART: First and second heart sounds are normal; no edema. LUNGS: Respiratory rate was, diminished breath sound ABDOMEN: Soft, nontender, liver spleen not palpable, no masses palpable. PSYCH: Alert and oriented x3; mood and affect normal. MUSCULOSKELETAL:No Clubbing/cyanosis;muscles-grossly intact INVESTIGATIONS, reviewed in the clinical context: 2-D echocardiogram: Moderate left ventricle wall thickness. EF 50-55%. December 21: Potassium 4.1 creatinine 0.87 White count 9.60 globin 30.4 platelets 314 sodium 137 potassium 5.7 creatinine 0.64 Troponin I 0.018. ProBNP 1750 EKG tracing personally reviewed by me-atrial fibrillation. Rate 92 Chest x-ray film personally reviewed by me-cardiomegaly, venous prominence Assessment and plan: -Acute congestive heart failure exacerbation. Diastolic dysfunction EF 50-55% IV Lasix discontinue. Lasix 40 mg by mouth daily. Farxiga Fluid restricted 2000 mL a day. -Acute COPD exacerbation in a current smoker: Better Atrovent. IV Solu-Medrol. Nebulized Perforomist and Pulmicort DC on prednisone taper. -Obesity BMI 39.5 Weight loss measures -Persistent atrial fibrillation, rate controlled Xarelto. Toprol-XL 50 mg twice a day Patient told to stop eliquis study was also taking at home. -Chronic nicotine dependence cigarette smoker Nicotine patch -Hyperlipidemia Lipitor 40 mg daily at bedtime -Essential hypertension Toprol-XL 50 mg a day. -Diabetes mellitus type 2 on oral hypoglycemic Follow Accu-Cheks with sliding scale. Farxiga -Obstructive sleep apnea-testing of the abdomen. Pending CPAP -Primary osteoarthritis -Full code Disposition: Home Past Medical History Past Medical History: Atrial Fibrillation, COPD, Diabetes Mellitus, GERD/Reflux, Hyperlipidemia, Hypertension, Musculoskeletal Disorder, Sleep Apnea/CPAP/BIPAP Additional Past Medical History / Comment(s): Pt recently hospitalized [facility] for afib/palpitations/difficulty breathing, NIDDM type II, muscle cramps, SU with current testing being done, DDD, spinal spondylosis, bilateral numbness down both arms to fingers, bilateral knees occasionally buckle/wears right knee brace at times, chronic pain. History of Any Multi-Drug Resistant Organisms: MRSA Date of last positivie culture/infection: 1999 MDRO Source:: face Past Surgical History: Appendectomy, Cholecystectomy, Orthopedic Surgery Additional Past Surgical History / Comment(s): Cervical fusion/cage with bone from hip, back surgery d/t congenital defect,. 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 Past Anesthesia/Blood Transfusion Reactions: Previous Problems w/ Anesthesia Additional Past Anesthesia/Blood Transfusion Reaction / Comment(s): "Combative when coming out anesthesia." Pt has never had a blood transfusion. Past Psychological History: Anxiety, Depression, PTSD Smoking Status: Former smoker - Past Family History Mother Family Medical History: Deep Vein Thrombosis (DVT) Sister(s) Family Medical History: Cancer Additional Family Medical History / Comment(s): Colon cancer X2 sisters. Father Family Medical History: Myocardial Infarction ([place]) Additional Family Medical History / Comment(s): at 43 yrs of [place] Plan - Discharge Summary Discharge Rx Participant: No New Discharge Prescriptions: New Dapagliflozin Propanediol [Farxiga] 10 mg PO DAILY #30 tab predniSONE 10 mg PO DAILY #30 tab Rivaroxaban [Xarelto] 20 mg PO W/SUPPER #30 tab Nicotine 21Mg/24Hr Patch [Habitrol] 1 patch TRANSDERM DAILY #14 patch Furosemide [Lasix] 40 mg PO DAILY #30 tab Continue buPROPion HCL [buPROPion HCL SR] 150 mg PO BID PARoxetine HCL [Paxil] 40 mg PO DAILY metFORMIN HCL [Glucophage] 500 mg PO BID Omeprazole [PriLOSEC] 40 mg PO DAILY HYDROcodone/APAP 10-325MG [[place] 10-325] 1 tab PO QID Montelukast [Singulair] 10 mg PO HS Gabapentin 800 mg PO QID Metoprolol Succinate (ER) [Toprol XL] 50 mg PO DAILY Atorvastatin [Lipitor] 40 mg PO HS dilTIAZem HCL [Cardizem CD] 120 mg PO DAILY Ipratropium Nebulized [Atrovent Nebulized 0.2 MG/ML] 0.5 mg INHALATION RT-QID Budesonide/Formoterol Fumarate [Symbicort 160-4.5 Mcg Inhaler] 2 puff INHALATION RT-BID Budesonide [Pulmicort] 1 mg INHALATION RT-BID Discontinued amLODIPine [Norvasc] 10 mg PO DAILY Rivaroxaban [Xarelto] 10 mg PO DAILY Apixaban [Eliquis] 5 mg PO DAILY Discharge Medication List PARoxetine HCL [Paxil] 40 mg PO DAILY 12/21/19 [History] buPROPion HCL [buPROPion HCL SR] 150 mg PO BID 12/21/19 [History] metFORMIN HCL [Glucophage] 500 mg PO BID 12/21/19 [History] Gabapentin 800 mg PO QID 11/06/22 [History] Atorvastatin [Lipitor] 40 mg PO HS 03/01/23 [History] Metoprolol Succinate (ER) [Toprol XL] 50 mg PO DAILY 03/01/23 [History] Budesonide [Pulmicort] 1 mg INHALATION RT-BID 11/18/23 [History] Budesonide/Formoterol Fumarate [Symbicort 160-4.5 Mcg Inhaler] 2 puff INHALATION RT-BID 11/18/23 [History] HYDROcodone/APAP 10-325MG [[place] 10-325] 1 tab PO QID 11/18/23 [History] Ipratropium Nebulized [Atrovent Nebulized 0.2 MG/ML] 0.5 mg INHALATION RT-QID 11/18/23 [History] Montelukast [Singulair] 10 mg PO HS 11/18/23 [History] Omeprazole [PriLOSEC] 40 mg PO DAILY 11/18/23 [History] dilTIAZem HCL [Cardizem CD] 120 mg PO DAILY 11/18/23 [History] Dapagliflozin Propanediol [Farxiga] 10 mg PO DAILY #30 tab 11/20/23 [Rx] Furosemide [Lasix] 40 mg PO DAILY #30 tab 11/20/23 [Rx] Nicotine 21Mg/24Hr Patch [Habitrol] 1 patch TRANSDERM DAILY #14 patch 11/20/23 [Rx] Rivaroxaban [Xarelto] 20 mg PO W/SUPPER #30 tab 11/20/23 [Rx] predniSONE 10 mg PO DAILY #30 tab 11/20/23 [Rx] Follow up Appointment(s)/Referral(s): Randa Marino MD [STAFF PHYSICIAN] - 12/02/23 2:15 pm Deuce Brito MD [Primary Care Provider] - 1-2 days Patient Instructions/Handouts: Heart Failure (DC) Discharge Disposition: HOME SELF-CARE
[2023-11-21] MEDS ORDERED: FUROSEMIDE 40 MG TAB PO SCH (09:00)
== END 2023-11-20 12:30 | disposition home or self-care (01) | DRG 199 ==
LOC: EC 11:26 → 3SCARD 15:36
PROVIDERS: ADMIT Family Medicine; ATTEND Family Medicine
DX: I16.0 Hypertensive urgency (principal); I11.0 Hypertensive heart disease with heart failure; I50.33 Acute on chronic diastolic (congestive) heart failure; J44.1 Chronic obstructive pulmonary disease with (acute) exacerbation; I48.19 Other persistent atrial fibrillation; E11.42 Type 2 diabetes mellitus with diabetic polyneuropathy; Z68.39 Body mass index [BMI] 39.0-39.9, adult; E66.9 Obesity, unspecified; F17.210 Nicotine dependence, cigarettes, uncomplicated; G47.33 Obstructive sleep apnea (adult) (pediatric); G89.29 Other chronic pain; M47.9 Spondylosis, unspecified; G47.30 Sleep apnea, unspecified; E78.5 Hyperlipidemia, unspecified; M19.91 Primary osteoarthritis, unspecified site; Z79.01 Long term (current) use of anticoagulants; Z87.798 Personal history of other (corrected) congenital malformations; Z86.14 Personal history of Methicillin resistant Staphylococcus aureus infection; Z82.49 Family history of ischemic heart disease and other diseases of the circulatory system; Z79.84 Long term (current) use of oral hypoglycemic drugs; Z79.899 Other long term (current) drug therapy; Z79.51 Long term (current) use of inhaled steroids; Z79.891 Long term (current) use of opiate analgesic; Z98.1 Arthrodesis status
CPT/HCPCS: 36415; 70450; 71046; 72125; 80048; 80053; 82803; 83735; 83880; 84484; 85025; 85379; 85610; 85730; 93005; 93306; 94640; 94760; 96374; 96375; 99285

== ENCOUNTER 2023-12-31 12:17 | Observation (INO) | payer OTHER ==
--- NOTE | 2023-12-31 12:34 | ED ---
General Adult HPI - General Chief complaint: Chest Pain Stated complaint: Chest Pain Time Seen by Provider: 12/31/23 12:27 Source: patient, EMS, RN notes reviewed Mode of arrival: EMS Limitations: no limitations - History of Present Illness Initial comments: Patient is a pleasant 58-year-old male present to the emergency department with concerns with chest discomfort. Onset of symptoms was prior to arrival. Discomfort felt like an ache. Discomfort was 7/10. Patient did have associated dyspnea and diaphoresis. Patient had mild nausea. Those have resolved. Discomfort improved to 3/10 with nitroglycerin and aspirin. No history of similar symptoms previously. No new back pain. No leg pain or swelling. - Related Data Home Medications Medication Instructions Recorded Confirmed PARoxetine HCL [Paxil] 40 mg PO DAILY 12/21/19 11/18/23 buPROPion HCL [buPROPion HCL SR] 150 mg PO BID 12/21/19 11/18/23 metFORMIN HCL [Glucophage] 500 mg PO BID 12/21/19 11/18/23 Gabapentin 800 mg PO QID 11/06/22 11/18/23 Atorvastatin [Lipitor] 40 mg PO HS 03/01/23 11/18/23 Metoprolol Succinate (ER) [Toprol 50 mg PO DAILY 03/01/23 11/18/23 XL] Budesonide [Pulmicort] 1 mg INHALATION RT-BID 11/18/23 11/18/23 Budesonide/Formoterol Fumarate 2 puff INHALATION RT-BID 11/18/23 11/18/23 [Symbicort 160-4.5 Mcg Inhaler] HYDROcodone/APAP 10-325MG [[place] 1 tab PO QID 11/18/23 11/18/23 10-325] Ipratropium Nebulized [Atrovent 0.5 mg INHALATION RT-QID 11/18/23 11/18/23 Nebulized 0.2 MG/ML] Montelukast [Singulair] 10 mg PO HS 11/18/23 11/18/23 Omeprazole [PriLOSEC] 40 mg PO DAILY 11/18/23 11/18/23 dilTIAZem HCL [Cardizem CD] 120 mg PO DAILY 11/18/23 11/18/23 Previous Rx's Medication Instructions Recorded Dapagliflozin Propanediol [Farxiga] 10 mg PO DAILY #30 tab 11/20/23 Furosemide [Lasix] 40 mg PO DAILY #30 tab 11/20/23 Nicotine 21Mg/24Hr Patch [Habitrol] 1 patch TRANSDERM DAILY #14 patch 11/20/23 Rivaroxaban [Xarelto] 20 mg PO W/SUPPER #30 tab 11/20/23 predniSONE 10 mg PO DAILY #30 tab 11/20/23 Allergies Allergy/AdvReac Type Severity Reaction Status Date / Time No Known Allergies Allergy Verified 12/31/23 12:26 Review of Systems ROS Statement: Those systems with pertinent positive or pertinent negative responses have been documented in the HPI. ROS Other: All systems not noted in ROS Statement are negative. Constitutional: Denies: fever Eyes: Denies: eye pain ENT: Denies: ear pain Respiratory: Reports: as per HPI Cardiovascular: Reports: as per HPI, chest pain Endocrine: Denies: fatigue Gastrointestinal: Denies: abdominal pain Past Medical History Past Medical History: Atrial Fibrillation, COPD, Diabetes Mellitus, GERD/Reflux, Hyperlipidemia, Hypertension, Musculoskeletal Disorder, Sleep Apnea/CPAP/BIPAP Additional Past Medical History / Comment(s): Pt recently hospitalized [facility] for afib/palpitations/difficulty breathing, NIDDM type II, muscle cramps, SU with current testing being done, DDD, spinal spondylosis, bilateral numbness down both arms to fingers, bilateral knees occasionally buckle/wears right knee brace at times, chronic pain. History of Any Multi-Drug Resistant Organisms: MRSA Date of last positivie culture/infection: 1999 MDRO Source:: face Past Surgical History: Appendectomy, Cholecystectomy, Orthopedic Surgery Additional Past Surgical History / Comment(s): Cervical fusion/cage with bone from hip, back surgery d/t congenital defect,. 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 Past Anesthesia/Blood Transfusion Reactions: Previous Problems w/ Anesthesia Additional Past Anesthesia/Blood Transfusion Reaction / Comment(s): "Combative when coming out anesthesia." Pt has never had a blood transfusion. Past Psychological History: Anxiety, Depression, PTSD Smoking Status: Former smoker Past Alcohol Use History: None Reported Past Drug Use History: None Reported - Past Family History Mother Family Medical History: Deep Vein Thrombosis (DVT) Sister(s) Family Medical History: Cancer Additional Family Medical History / Comment(s): Colon cancer X2 sisters. Father Family Medical History: Myocardial Infarction ([place]) Additional Family Medical History / Comment(s): at 43 yrs of [place] General Exam Limitations: no limitations General appearance: alert, in no apparent distress Head exam: Present: normocephalic Eye exam: Present: normal appearance Neck exam: Present: normal inspection Respiratory exam: Present: normal lung sounds bilaterally Cardiovascular Exam: Present: regular rate, irregular rhythm Expanded Peripheral pulses: 2+: Radial (R), Radial (L), Posterior Tibialis (R), Posterior Tibialis (L) GI/Abdominal exam: Present: soft. Absent: tenderness, pulsatile mass Extremities exam: Present: normal inspection. Absent: pedal edema, calf tenderness Neurological exam: Present: alert Psychiatric exam: Present: normal affect, normal mood Skin exam: Present: normal color Course Vital Signs 12/31/23 12:29 Temperature 98.6 F Pulse Rate 79 Respiratory 18 Rate Blood Pressure 115/73 O2 Sat by Pulse 95 Oximetry EKG Findings - EKG Results: EKG: interpreted by FLORINDA, normal axis, normal QRS, normal ST/T EKG shows: atrial fibrillation Medical Decision Making - Medical Decision Making Was pt. sent in by a medical professional or institution (, PA, PHARMACEUTICAL SERVICE REPRESENTATIVE, urgent care, hospital, or fpc...) When possible be specific @ -No Did you speak to anyone other than the patient for history (EMS, parent, family, police, friend...)? What history was obtained from this source @ -No Did you review nursing and triage notes (agree or disagree)? Why? @ -I reviewed and agree with nursing and triage notes Were old charts reviewed (outside hosp., previous admission, EMS record, old EKG, old radiological studies, urgent care reports/EKG's, fpc records)? Report findings @ -Previous chest x-ray reviewed Differential Diagnosis (chest pain, altered mental status, abdominal pain women, abdominal pain men, vaginal bleeding, weakness, fever, dyspnea, syncope, h eadache, dizziness, GI bleed, back pain, seizure, CVA, palpatations, mental health, musculoskeletal)? @ -Differential Chest Pain: Stable Angina, Unstable Angina, STEMI, NSTEMI Aortic Dissection, Pneumothorax, Musculoskeletal, Esophageal Spasm GERD, Cholecystitis, Pancreatitis, Zoster, this is not meant to be an all-inclusive list. EKG interpreted by me (3pts min.). @ -As above X-rays interpreted by me (1pt min.). @ -Chest x-ray shows cardiomegaly and mild interstitial changes, improved from previous CT interpreted by me (1pt min.). @ -None done U/S interpreted by me (1pt. min.). @ -None done What testing was considered but not performed or refused? (CT, X-rays, U/S, labs)? Why? @ -None What meds were considered but not given or refused? Why? @ -None Did you discuss the management of the patient with other professionals (professionals i.e. DrJohnnie, PA, PHARMACEUTICAL SERVICE REPRESENTATIVE, lab, RT, psych nurse, social media marketing specialist, compensation advisor, teacher, ecological technical officer, correctional case records supervisor)? Give summary @ -Dr. Brito who will admit his patient. Was smoking cessation discussed for >3mins.? @ -No Was critical care preformed (if so, how long)? @ -No Were there social determinants of health that impacted care today? How? (Home lessness, low income, unemployed, alcoholism, drug addiction, transportation, low edu. Level, literacy, decrease access to med. care, mcc, rehab)? @ -No Was there de-escalation of care discussed even if they declined (Discuss DNR or withdrawal of care, Hospice)? DNR status @ -No What co-morbidities impacted this encounter? (DM, HTN, Smoking, COPD, CAD, Cancer, CVA, ARF, Chemo, Hep., AIDS, mental health diagnosis, sleep apnea, morbid obesity)? @ -None Was patient admitted / discharged? Hospital course, mention meds given and route, prescriptions, significant lab abnormalities, going to OR and other pertinent info. @ -Patient reevaluated and somewhat further improved. Discomfort 01/04. P atient presents with chest pain that does sound anginal with improvement with nitroglycerin. Patient will be admitted with cardiac consult. 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 Admission orders written. Consult placed. Undiagnosed new problem with uncertain prognosis? @ -No Drug Therapy requiring intensive monitoring for toxicity (Heparin, Nitro, Insulin, Cardizem)? @ -No Were any procedures done? @ -No Diagnosis/symptom? @ -Chest pain Acute, or Chronic, or Acute on Chronic? @ -Acute Uncomplicated (without systemic symptoms) or Complicated (systemic symptoms)? @ -Default Side effects of treatment? @ -No Exacerbation, Progression, or Severe Exacerbation? @ -No Poses a threat to life or bodily function? How? (Chest pain, [place], [place], pneumonia, PE, COPD, DKA, ARF, appy, cholecystitis, CVA, Diverticulitis, Homicidal, Suicidal, threat to staff... and all critical care pts) @ -Potential threat to cardiac function with pain - Lab Data Result diagrams: 12/31/23 12:42 12/31/23 12:42 Lab Results 12/31/23 12/31/23 12/31/23 Range/Units 12:42 12:42 12:42 WBC 9.9 (3.8-10.6) k/uL RBC 4.71 (4.30-5.90) m/uL Hgb 13.5 (13.0-17.5) gm/dL Hct 41.0 (39.0-53.0) % MCV 87.1 (80.0-100.0) fL MCH 28.7 (25.0-35.0) pg MCHC 33.0 (31.0-37.0) g/dL RDW 16.3 H (11.5-15.5) % Plt Count 291 (150-450) k/uL MPV 6.9 Neutrophils % 77 % Lymphocytes % 13 % Monocytes % 6 % Eosinophils % 1 % Basophils % 1 % Neutrophils # 7.6 (1.3-7.7) k/uL Lymphocytes # 1.3 (1.0-4.8) k/uL Monocytes # 0.6 (0-1.0) k/uL Eosinophils # 0.1 (0-0.7) k/uL Basophils # 0.1 (0-0.2) k/uL Anisocytosis Slight PT 10.7 (10.0-12.5) sec INR 1.0 (<1.2) APTT 24.3 (22.0-30.0) sec Sodium 139 (137-145) mmol/L Potassium 3.9 (3.5-5.1) mmol/L Chloride 108 H (98-107) mmol/L Carbon Dioxide 26 (22-30) mmol/L Anion Gap 5 mmol/L BUN 13 (9-20) mg/dL Creatinine 0.79 (0.66-1.25) mg/dL Est GFR (CKD-EPI)AfAm >90 (>60 ml/min/1.73 sqM) Est GFR (CKD-EPI)NonAf >90 (>60 ml/min/1.73 sqM) Glucose 136 H (74-99) mg/dL Calcium 9.0 (8.4-10.2) mg/dL Magnesium 1.8 (1.6-2.3) mg/dL Total Bilirubin 0.9 (0.2-1.3) mg/dL AST 32 (17-59) U/L ALT 26 (4-49) U/L Alkaline Phosphatase 79 (38-126) U/L Troponin I (0.000-0.034) ng/mL Total Protein 6.2 L (6.3-8.2) g/dL Albumin 4.0 (3.5-5.0) g/dL 12/31/23 Range/Units 12:42 WBC (3.8-10.6) k/uL RBC (4.30-5.90) m/uL Hgb (13.0-17.5) gm/dL Hct (39.0-53.0) % MCV (80.0-100.0) fL MCH (25.0-35.0) pg MCHC (31.0-37.0) g/dL RDW (11.5-15.5) % Plt Count (150-450) k/uL MPV Neutrophils % % Lymphocytes % % Monocytes % % Eosinophils % % Basophils % % Neutrophils # (1.3-7.7) k/uL Lymphocytes # (1.0-4.8) k/uL Monocytes # (0-1.0) k/uL Eosinophils # (0-0.7) k/uL Basophils # (0-0.2) k/uL Anisocytosis PT (10.0-12.5) sec INR (<1.2) APTT (22.0-30.0) sec Sodium (137-145) mmol/L Potassium (3.5-5.1) mmol/L Chloride (98-107) mmol/L Carbon Dioxide (22-30) mmol/L Anion Gap mmol/L BUN (9-20) mg/dL Creatinine (0.66-1.25) mg/dL Est GFR (CKD-EPI)AfAm (>60 ml/min/1.73 sqM) Est GFR (CKD-EPI)NonAf (>60 ml/min/1.73 sqM) Glucose (74-99) mg/dL Calcium (8.4-10.2) mg/dL Magnesium (1.6-2.3) mg/dL Total Bilirubin (0.2-1.3) mg/dL AST (17-59) U/L ALT (4-49) U/L Alkaline Phosphatase (38-126) U/L Troponin I <0.012 (0.000-0.034) ng/mL Total Protein (6.3-8.2) g/dL Albumin (3.5-5.0) g/dL Disposition Clinical Impression: Chest pain Disposition: ADMITTED IP TO THIS HOSP Is patient prescribed a controlled substance at d/c from ED?: No Referrals: Deuce Brito MD [Primary Care Provider] - 1-2 days Time of Disposition: 13:19
[2023-12-31] MEDS: ASPIRIN 81 MG PO STA (12:35)
[2023-12-31 12:46] LABS: Anisocytosis Slight; Basophils # (A) 0.1 k/uL (0-0.2); Basophils % (A) 1 %; Eosinophils # (A) 0.1 k/uL (0-0.7); Eosinophils % (A) 1 %; HGB 13.5 gm/dL (13.0-17.5); Lymphocytes # (A) 1.3 k/uL (1.0-4.8); Lymphocytes % (A) 13 %; MCH 28.7 pg (25.0-35.0); MCV 87.1 fL (80.0-100.0); Mean Platelet Volume 6.9; Monocytes # (A) 0.6 k/uL (0-1.0); Monocytes % (A) 6 %; Neutrophils # (A) 7.6 k/uL (1.3-7.7); Neutrophils % (A) 77 %; Platelet Count 291 k/uL (150-450); RBC 4.71 m/uL (4.30-5.90); RDW 16.3 % (11.5-15.5); WBC 9.9 k/uL (3.8-10.6)
[2023-12-31] MEDS: NITROGLYCERIN OINT 1 INCH/GM PACKET TOPICAL STA (12:47)
[2023-12-31 12:55] LABS: Partial Thromboplastin Time 24.3 sec (22.0-30.0); Prothrombin Time 10.7 sec (10.0-12.5)
[2023-12-31 12:58] LABS: ALT 26 U/L (4-49); AST 32 U/L (17-59); African American GFR (CKD) >90 (>60 ml/min/1.73 sqM); Alkaline Phosphatase 79 U/L (38-126); Anion Gap 5 mmol/L; Blood Urea Nitrogen 13 mg/dL (9-20); Carbon Dioxide 26 mmol/L (22-30); Chloride 108 mmol/L (98-107); Glucose 136 mg/dL (74-99); Magnesium 1.8 mg/dL (1.6-2.3); Non-African American GFR(CKD) >90 (>60 ml/min/1.73 sqM); Potassium 3.9 mmol/L (3.5-5.1); Sodium 139 mmol/L (137-145); Total Bilirubin 0.9 mg/dL (0.2-1.3); Total Protein 6.2 g/dL (6.3-8.2)
--- NOTE | 2023-12-31 13:09 | XR ---
EXAMINATION TYPE: XR chest 2V DATE OF EXAM: 12/31/2023 12:55 PM CLINICAL INDICATION:Male, 58 years old with history of Chest Pain; [facility] COMPARISON: Chest radiographs from 11/18/2023 TECHNIQUE: XR chest 2V Frontal and lateral views of the chest. FINDINGS: Lungs/Pleura: There is no evidence of pleural effusion, focal consolidation, or pneumothorax. Pulmonary vascularity: Pulmonary vascular congestion. Heart/mediastinum: Cardiomediastinal silhouette is enlarged and stable. Musculoskeletal: No acute osseous pathology. There is fixation hardware in the lower cervical spine. IMPRESSION: Cardiomegaly and mild pulmonary vascular congestion. Correlate with BNP for congestive heart failure.
[2023-12-31] MEDS ORDERED: NITROGLYCERIN SL TABS 0.4 MG TAB SUBLINGUAL PRN (13:16)
[2023-12-31] MEDS: GABAPENTIN 400 MG CAP PO SCH (17:24)
[2023-12-31] MEDS: HYDROcodone/APAP 10-325MG 1 EACH TAB PO SCH (17:24)
[2023-12-31] MEDS: NITROGLYCERIN OINT 1 INCH/GM PACKET TOPICAL SCH (17:25)
[2023-12-31] MEDS: RIVAROXABAN 20 MG TAB PO SCH (17:25)
--- NOTE | 2023-12-31 18:01 | CT ---
EXAMINATION TYPE: CT chest wo con DATE OF EXAM: 12/31/2023 COMPARISON: None HISTORY: Chest and back pain. CT DLP: 771.[address] of the chest was performed with lung and mediastinal window settings submitted. The la ck of contrast limits evaluation of the vascular, mediastinal and parenchymal structures including th e upper abdomen. LUNGS: The lungs are clear and free of infiltrate. No atelectasis. No pulmonary nodule or mass is de tected. No pleural effusion. No CT evidence of interstitial lung disease. MEDIASTINUM/GALO: Thoracic aorta is of normal caliber with limited evaluation given lack of contrast . The heart is mildly enlarged. No evidence for mediastinal mass. No lymph nodes greater than 1cm . UPPER ABDOMEN: No significant abnormality is seen. OTHER: No significant other abnormality. IMPRESSION: 1. No significant abnormality appreciated.
[2023-12-31] MEDS: SYMBICORT 160-4.5 MCG INHALER INHALATION SCH (18:18)
[2023-12-31] MEDS: IPRATROPIUM 0.5 MG/2.5 ML NEBU INHALATION SCH (18:19)
[2023-12-31] MEDS: BUDESONIDE 1 MG/2 ML NEBU INHALATION SCH (18:20)
[2023-12-31 21:11] LABS: Glucose,Whole Blood 105 mg/dL (70-110)
[2023-12-31] MEDS: buPROPion SR 150 MG TABLET.ER PO SCH (21:14)
[2023-12-31] MEDS: DILTIAZEM CD 120 MG CAP.ER.24H PO SCH (21:14)
[2023-12-31] MEDS: PARoxetine 20 MG TAB PO SCH (21:15)
[2023-12-31] MEDS: metFORMIN 500 MG TAB PO SCH (21:15)
[2023-12-31] MEDS: MONTELUKAST 10 MG TAB PO SCH (21:15)
[2023-12-31] MEDS: ATORVASTATIN 40 MG TAB PO SCH (21:15)
--- NOTE | 2023-12-31 22:01 | HP ---
HISTORY AND PHYSICAL HISTORY OF PRESENT ILLNESS: This is a 58-year-old male complaining of chest discomfort, felt like an ache, 06/03, associated with dyspnea, diaphoresis, nausea. Nitroglycerin took his pain down to 3/10 from a 06/03. MEDICINES: 1. Paxil 40 daily. 2. Wellbutrin 150 b.i.d. 3. Metformin 500 b.i.d. 4. Gabapentin 800 t.i.d. 5. Lipitor 40 daily. 6. Metoprolol-XL 50 daily. 7. Pulmicort 1 mg b.i.d. 8. Symbicort 160/4.5 two puffs b.i.d. 9. [place] 10/325 q.i.d. 10.Cardizem 120 daily. 11.Prilosec 40 daily. 12.Singulair 10 daily. 13.DuoNeb updrafts q.i.d. ALLERGIES: Negative. REVIEW OF SYSTEMS: A 14-point review of systems negative except for mentioned in HPI. PAST MEDICAL HISTORY: Atrial fibrillation, COPD, diabetes, GERD, hypertension, anemia, history of MRSA, appendectomy, cholecystectomy, orthopedic surgery. FAMILY HISTORY: Mother with DVT. Sister with cancer of the colon. Father, myocardial infarction. PHYSICAL EXAMINATION: VITAL SIGNS: Temperature 98.6, pulse 79, respiratory rate 16 to 18, blood pressure 115/73, O2 95. Rule out myocardial infarction. Check a D-dimer. Continue on home medicines. Wait for Cardiology consult. Possibly order echo if not done. Prognosis guarded. MMODL / IJN: [id number] /
[2024-01-01] MEDS: PANTOPRAZOLE 40 MG TABLET PO SCH (05:40)
[2024-01-01 07:35] VITALS: BP 153/85; RESP 20; TEMP 97.9
[2024-01-01] MEDS ORDERED: ASPIRIN 325 MG TAB PO SCH (09:00)
[2024-01-01 09:01] LABS: Chol/HDL Ratio 3.91 Ratio; LDL Cholesterol,Calculated 60.8 mg/dL (0.0-131.0)
[2024-01-01] MEDS: DAPAGLIFLOZIN PROPANEDIOL 10 MG TABLET PO SCH (09:22)
[2024-01-01] MEDS: METOPROLOL SUCCINATE (ER) 50 MG TAB.ER.24H PO SCH (09:22)
[2024-01-01] MEDS: FUROSEMIDE 40 MG TAB PO SCH (09:22)
[2024-01-01] MEDS: NICOTINE 21MG/24HR PATCH TRANSDERM SCH (09:23)
--- NOTE | 2024-01-01 10:57 | P.CRDCN ---
History of Present Illness Consult date: 01/01/24 Consult reason: chest pain History of present illness: History of present illness: This is a 58-year-old male patient of Dr. Menard with past medical history of COPD, chronic diastolic heart failure, tobacco use and dependence, persistent atrial fibrillation on Xarelto, diabetes mellitus type 2, hypertension, hyperlipidemia. We have been asked to evaluate the patient for chest pain. Patient states that he came in the hospital due to shortness of breath and pain on the left side that seems to be worsening. He states that he has quit smoking since he was in the office on December 26 and is now vaping. He complains of cough with sputum production and wheezing. No lower extremity edema. He denies any palpitations, no lightheadedness or dizziness, no syncopal episodes. He denies having any fever. He states that shortness of breath have been going on for about a few days. Patient was last seen in the office on December 26 and plan for evaluation by Dr. Silveira for ablation prior to spinal surgery that is currently on hold. Recommendations were for patient to undergo spinal surgery prior to ablation due to needing to hold anticoagulation for the surgery. Dr. Jeffrey will not perform the back surgery until patient has completed his cardiac procedure. EKG atrial fibrillation with ventricular rate of 83 bpm. Chest x-ray: Cardiomegaly and mild pulmonary vascular congestion. Correlate for congestive heart failure. CT of the chest without contrast revealed no significant abnormality. CBC is unremarkable. INR is 1, D-dimer 0.38. Potassium 3.9, BUN 13 creatinine 0.79. Liver function tests are normal. Magnesium 1.8. Troponin negative x 3 draws. Triglycerides 124, cholesterol 115, LDL 60, HDL 29. Home cardiac medications: Atorvastatin 40 mg at bedtime, Farxiga 10 mg daily, Cardizem CD 120 mg at bedtime, Lasix 40 mg daily, Toprol XL 50 mg daily, Xarelto 20 mg with supper. Patient is also on nicotine patch. Echocardiogram performed on 11/19/2023 revealed EF of 50 to 55%, moderately increased left ventricular wall thickness. Mild right ventricular dilation. Moderately dilated left atrium. Mild mitral calcification. Mild mitral regurgitation. Lexiscan stress test performed on 03/13/2023 revealed suggestion of small fixed defect along the distal inferior wall extending to the apex. No stress-induced ischemic changes. Review Of Systems: At the time of my exam: CONSTITUTIONAL: Denies fever or chills. HEENT: Denies blurred vision, vision changes, or eye pain. Denies hemoptysis CARDIOVASCULAR: Denies chest pain. Denies orthopnea. Denies PND. Denies palpitations RESPIRATORY: Reports shortness of breath. Reports cough, reports wheezing. GASTROINTESTINAL: Denies abdominal pain. Denies nausea or vomiting. HEMATOLOGIC: Denies bleeding disorders. GENITOURINARY: Denies any blood in urine. SKIN: Denies pruitis. Denies rash. Physical examination: Gen: This is a 58-year-old male resting on the edge of the bed in no acute distress VS: reviewed HEENT: Head is atraumatic, normocephalic. Pupils equal, round. Sclerae is anicteric. NECK: Supple. No JVD. LUNGS: Clear to auscultation. No wheezes or rhonchi. No intercostal retractions. HEART: Irregular rate and rhythm. No murmur. ABDOMEN: Soft No tenderness. EXTREMITIES: No pedal edema. No calf tenderness. NEUROLOGICAL: Patient is awake, alert and oriented x3. Assessment: Atypical chest pain, acute coronary syndrome ruled out Shortness of breath secondary to chronic obstructive pulmonary disease Persistent atrial fibrillation on Xarelto Chronic diastolic heart failure Tobacco use and dependence, continue abstinence Diabetes mellitus type 2 Hypertension Dyslipidemia Plan: Continue patient's home cardiac medications Discontinue aspirin and Nitropaste Patient is cleared for discharge and may follow-up in the office as planned. Thank you kindly for this consultation. Nurse practitioner note has been reviewed, I agree with documented findings and plan of care. Patient was seen and examined. Past Medical History Past Medical History: Atrial Fibrillation, Heart Failure, COPD, Diabetes Me llitus, GERD/Reflux, Hyperlipidemia, Hypertension, Musculoskeletal Disorder, Sleep Apnea/CPAP/BIPAP Additional Past Medical History / Comment(s): Pt recently hospitalized [facility] for afib/palpitations/difficulty breathing, NIDDM type II, muscle cramps, SU with current testing being done, DDD, spinal spondylosis, bilateral numbness down both arms to fingers, bilateral knees occasionally buckle/wears right knee brace at times, chronic pain. History of Any Multi-Drug Resistant Organisms: MRSA Date of last positivie culture/infection: 1999 MDRO Source:: face Past Surgical History: Appendectomy, Cholecystectomy, Orthopedic Surgery Additional Past Surgical History / Comment(s): Cervical fusion/cage with bone from hip, back surgery d/t congenital defect,. 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 Past Anesthesia/Blood Transfusion Reactions: Previous Problems w/ Anesthesia Additional Past Anesthesia/Blood Transfusion Reaction / Comment(s): "Combative when coming out anesthesia." Pt has never had a blood transfusion. Past Psychological History: Anxiety, Depression, PTSD Additional Psychological History / Comment(s): Pt resides with exspouse. Smoking Status: Former smoker Past Alcohol Use History: None Reported Additional Past Alcohol Use History / Comment(s): Pt started smoking 1979 and was a ppd smoker. Pt quit smoking 01/2023. Past Drug Use History: None Reported Additional Drug Use History / Comment(s): USES MARIJUANA DAILY BOTH SMOKING AND EDIBLES-INSTRUCTED TO REFRAIN FROM USE FOR AT LEAST 24 HOURS PRIOR TO PROCEDURE. - Past Family History Mother Family Medical History: Deep Vein Thrombosis (DVT) Sister(s) Family Medical History: Cancer Additional Family Medical History / Comment(s): Colon cancer X2 sisters. Father Family Medical History: Myocardial Infarction (AR) Additional Family Medical History / Comment(s): at 43 yrs of [place] Medications and Allergies Home Medications Medication Instructions Recorded Confirmed Type PARoxetine HCL [Paxil] 40 mg PO HS 12/21/19 12/31/23 History buPROPion HCL [buPROPion HCL SR] 150 mg PO BID 12/21/19 12/31/23 History metFORMIN HCL [Glucophage] 500 mg PO BID 12/21/19 12/31/23 History Gabapentin 800 mg PO QID 11/06/22 12/31/23 History Atorvastatin [Lipitor] 40 mg PO HS 03/01/23 12/31/23 History Metoprolol Succinate (ER) [Toprol 50 mg PO DAILY 03/01/23 12/31/23 History XL] Budesonide [Pulmicort] 1 mg INHALATION RT-BID 11/18/23 12/31/23 History Budesonide/Formoterol Fumarate 2 puff INHALATION RT-BID 11/18/23 12/31/23 History [Symbicort 160-4.5 Mcg Inhaler] HYDROcodone/APAP 10-325MG [[place] 1 tab PO QID 11/18/23 12/31/23 History 10-325] Ipratropium Nebulized [Atrovent 0.5 mg INHALATION RT-QID 11/18/23 12/31/23 History Nebulized 0.2 MG/ML] Montelukast [Singulair] 10 mg PO HS 11/18/23 12/31/23 History Omeprazole [PriLOSEC] 40 mg PO DAILY 11/18/23 12/31/23 History dilTIAZem HCL [Cardizem CD] 120 mg PO HS 11/18/23 12/31/23 History Dapagliflozin Propanediol [Farxiga] 10 mg PO DAILY #30 tab 11/20/23 12/31/23 Rx Furosemide [Lasix] 40 mg PO DAILY #30 tab 11/20/23 12/31/23 Rx Nicotine 21Mg/24Hr Patch [Habitrol] 1 patch TRANSDERM DAILY #14 patch 11/20/23 12/31/23 Rx Rivaroxaban [Xarelto] 20 mg PO W/SUPPER #30 tab 11/20/23 12/31/23 Rx Allergies Allergy/AdvReac Type Severity Reaction Status Date / Time No Known Allergies Allergy Verified 12/31/23 14:14 Physical Exam Vitals: Vital Signs Temp Pulse Pulse Resp BP BP Pulse Ox 01/01/24 07:00 97.9 F 72 20 153/85 95 01/01/24 01:14 98.2 F 80 16 156/99 96 12/31/23 21:01 98.1 F 84 15 190/103 98 12/31/23 20:24 98.3 F 72 18 152/95 100 12/31/23 18:58 69 18 144/84 95 12/31/23 18:30 65 12/31/23 18:21 69 12/31/23 17:17 72 18 151/100 95 12/31/23 15:33 84 18 142/97 96 12/31/23 12:29 98.6 F 79 18 115/73 95 Intake and Output 12/31/23 01/01/24 01/01/24 22:59 06:59 14:59 Other: # Voids 1 3 Weight 108.862 kg Results 12/31/23 12:42 12/31/23 12:42 Cardiac Enzymes 12/31/23 12/31/23 12/31/23 Range/Units 12:42 12:42 15:31 AST 32 (17-59) U/L Troponin I <0.012 <0.012 (0.000-0.034) ng/mL 12/31/23 Range/Units 18:36 AST (17-59) U/L Troponin I <0.012 (0.000-0.034) ng/mL Coagulation 12/31/23 Range/Units 12:42 PT 10.7 (10.0-12.5) sec APTT 24.3 (22.0-30.0) sec CBC 12/31/23 Range/Units 12:42 WBC 9.9 (3.8-10.6) k/uL RBC 4.71 (4.30-5.90) m/uL Hgb 13.5 (13.0-17.5) gm/dL Hct 41.0 (39.0-53.0) % Plt Count 291 (150-450) k/uL Comprehensive Metabolic Panel 12/31/23 Range/Units 12:42 Sodium 139 (137-145) mmol/L Potassium 3.9 (3.5-5.1) mmol/L Chloride 108 H (98-107) mmol/L Carbon Dioxide 26 (22-30) mmol/L BUN 13 (9-20) mg/dL Creatinine 0.79 (0.66-1.25) mg/dL Glucose 136 H (74-99) mg/dL Calcium 9.0 (8.4-10.2) mg/dL AST 32 (17-59) U/L ALT 26 (4-49) U/L Alkaline Phosphatase 79 (38-126) U/L Total Protein 6.2 L (6.3-8.2) g/dL Albumin 4.0 (3.5-5.0) g/dL Current Medications Generic Name Dose Route Start Last Admin Trade Name Freq PRN Reason Stop Dose Admin Hydrocodone Bitart/Acetaminophen 1 each 12/31/23 18:00 12/31/23 21:15 Hydrocodone/Apap 10-325mg 1 Each Tab PO 1 each QID [facility] Administration Aspirin 325 mg 01/01/24 09:00 Aspirin 325 Mg Tab PO DAILY FRO[facility]AN Atorvastatin Calcium 40 mg 12/31/23 21:00 12/31/23 21:15 Atorvastatin 40 Mg Tab PO 40 mg HS FROILAN Administration Budesonide 1 mg 12/31/23 20:00 12/31/23 18:20 Budesonide 1 Mg/2 Ml Nebu INHALATION 1 mg RT-BID [facility] Administration Budesonide/Formoterol Fumarate 2 puff 12/31/23 20:00 12/31/23 18:18 Symbicort 160-4.5 Mcg Inhaler INHALATION Not Given RT-BID [facility] Bupropion HCl 150 mg 12/31/23 21:00 12/31/23 21:14 Bupropion Sr 150 Mg Tablet.Er PO 150 mg BID [facility]AN Administration Dapagliflozin 10 mg 01/01/24 09:00 Dapagliflozin Propanediol 10 Mg Tablet PO DAILY [facility] Diltiazem HCl 120 mg 12/31/23 21:00 12/31/23 21:14 Diltiazem Cd 120 Mg Cap.Er.24h PO 120 mg [facility] Administration Furosemide 40 mg 01/01/24 09:00 Furosemide 40 Mg Tab PO DAILY [facility] Gabapentin 800 mg 12/31/23 18:00 12/31/23 21:15 Gabapentin 400 Mg Cap PO 800 mg QID [facility] Administration Ipratropium [place] 0.5 mg 12/31/23 20:00 12/31/23 18:19 Ipratropium 0.5 Mg/2.5 Ml Nebu INHALATION 0.5 mg RT-QID [facility] Administration Metformin HCl 500 mg 12/31/23 21:00 12/31/23 21:15 Metformin 500 Mg Tab PO 500 mg BID [facility] Administration Metoprolol Succinate 50 mg 01/01/24 09:00 Metoprolol Succinate (Er) 50 Mg Tab.Er.24h PO DAILY [facility] Montelukast Sodium 10 mg 12/31/23 21:00 12/31/23 21:15 Montelukast 10 Mg Tab PO 10 mg [facility] Administration Nicotine 1 patch 01/01/24 09:00 Nicotine 21mg/24hr Patch TRANSDERM DAILY [facility] Nitroglycerin 0.4 mg 12/31/23 13:16 Nitroglycerin Sl Tabs 0.4 Mg Tab SUBLINGUAL Q5M PRN Chest Pain Nitroglycerin 1 inch 12/31/23 18:00 01/01/24 05:40 Nitroglycerin Oint 1 Inch/Gm Packet TOPICAL Not Given Q6HR [facility] Pantoprazole Sodium 40 mg 01/01/24 07:30 01/01/24 05:40 Pantoprazole 40 Mg Tablet PO 40 mg DAILY@0730 [facility] Administration Paroxetine HCl 40 mg 12/31/23 21:00 12/31/23 21:15 Paroxetine 20 Mg Tab PO 40 mg HS [facility] Administration Rivaroxaban 20 mg 12/31/23 17:30 12/31/23 17:25 Rivaroxaban 20 Mg Tab PO 20 mg W/SUPPER [facility]AN Administration Protocol Intake and Output 12/31/23 01/01/24 01/01/24 22:59 06:59 14:59 Other: # Voids 1 3 Weight 108.862 kg 12/31/23 12:42 12/31/23 12:42
[2024-01-01 12:44] VITALS: PULSE 68
== END 2024-01-01 14:14 | disposition home or self-care (01) ==
LOC: EC 12:17 → 6NMEDSUR 13:17
PROVIDERS: ADMIT Family Medicine; ATTEND Family Medicine
DX: R07.89 Other chest pain (principal); I48.19 Other persistent atrial fibrillation; J44.9 Chronic obstructive pulmonary disease, unspecified; I11.0 Hypertensive heart disease with heart failure; I50.32 Chronic diastolic (congestive) heart failure; I34.0 Nonrheumatic mitral (valve) insufficiency; E11.9 Type 2 diabetes mellitus without complications; E78.5 Hyperlipidemia, unspecified; Z79.84 Long term (current) use of oral hypoglycemic drugs; Z79.51 Long term (current) use of inhaled steroids; Z79.01 Long term (current) use of anticoagulants; Z79.52 Long term (current) use of systemic steroids; Z79.899 Other long term (current) drug therapy; F17.290 Nicotine dependence, other tobacco product, uncomplicated; Z82.49 Family history of ischemic heart disease and other diseases of the circulatory system
CPT/HCPCS: 99285; 36415; 94640 ×3; 93005; 85379; 80061; 80053; 83735; 84484; 85025; 85610; 85730; 71046; 71250; G0378 ×2; S4990; S0106 ×2

== ENCOUNTER → 2024-02-22 | Outpatient (CLI) | payer OTHER ==
--- NOTE | 2024-02-25 16:20 | MR ---
EXAMINATION TYPE: MR lumbar spine wo con DATE OF EXAM: 02/22/2024 COMPARISON: 06/06/2022 HISTORY: Low back pain that radiates down left and right leg. CONTRAST: 0 mL intravenous Gadavist. TECHNIQUE: Multiplanar, multisequence images of the lumbar spine were acquired. FINDINGS: L5-S1: No significant disc bulge or disc herniation. No spinal canal stenosis. No foraminal stenosi s. This level is decompressed with a laminectomy L4-L5: Mild disc bulging is present with anterior thecal sac contact. No AP spinal canal stenosis pre sent. This level is decompressed with a laminectomy No spinal canal stenosis. No foraminal stenosis . L3-L4: No significant disc bulge or disc herniation. No spinal canal stenosis. No foraminal stenosi s. Some facet hypertrophy is present with mild posterior lateral thecal sac contact. L2-L3: No significant disc bulge or disc herniation. No spinal canal stenosis. No foraminal stenosi s. Left facet hypertrophy is present without significant thecal sac compression L1-L2: No significant disc bulge or disc herniation. No spinal canal stenosis. No foraminal stenosi s. T12-L1: No significant disc bulge or disc herniation. No spinal canal stenosis. No foraminal stenos is. Comparison: No significant interval change is evident. IMPRESSION: 1. Mild disc bulging L4-5 without spinal canal stenosis. 2. Mild facet hypertrophy on the left L3-4 with mild thecal sac contact.
== END | disposition home or self-care (01) ==
LOC: RADMRIMAIN 09:16
PROVIDERS: ATTEND Orthopaedic Surgery
DX: M43.26 Fusion of spine, lumbar region (principal); M47.816 Spondylosis without myelopathy or radiculopathy, lumbar region; M51.36 Other intervertebral disc degeneration, lumbar region
CPT/HCPCS: 72148

== ENCOUNTER → 2024-05-13 | Outpatient (CLI) | payer OTHER ==
[2024-05-13 10:39] LABS: INR 0.9 (<1.2); Partial Thromboplastin Time 25.1 sec (22.0-30.0); Prothrombin Time 10.3 sec (10.0-12.5)
[2024-05-13 15:21] LABS: Basophils # (A) 0.08 X 10*3/uL (0.00-0.10); Basophils % (A) 0.9 %; Eosinophils # (A) 0.22 X 10*3/uL (0.04-0.35); Eosinophils % (A) 2.6 %; HCT 48.9 % (39.6-50.0); HGB 15.4 g/dL (13.0-17.0); Lymphocytes % (A) 23.2 %; MCH 27.6 pg (27.0-32.0); MCHC 31.5 g/dL (32.0-37.0); MCV 87.8 FL (80.0-97.0); Mean Platelet Volume 9.1 FL (9.5-12.2); Monocytes # (A) 0.98 X 10*3/uL (0.20-1.00); Monocytes % (A) 11.4 %; NRBC Per 100 WBC 0 X 10*3/uL (0.00-0.01); Neutrophils % (A) 61.6 %; Platelet Count 352 X 10*3/uL (140-440); RBC 5.57 X 10*6/uL (4.40-5.60); WBC 8.61 X 10*3/uL (4.50-10.00)
[2024-05-13 16:13] LABS: BUN/Creat Ratio 25.89 Ratio (12.00-20.00); Blood Urea Nitrogen 23.3 mg/dL (9.0-27.0); Calcium 9.7 mg/dL (8.7-10.3); Carbon Dioxide 21.6 mmol/L (21.6-31.8); Chloride 104 mmol/L (96-109); Glucose 146 mg/dL (70-110); Potassium 4.6 mmol/L (3.5-5.5); Sodium 140 mmol/L (135-145)
== END | disposition home or self-care (01) ==
LOC: LABPAT 09:02
PROVIDERS: ATTEND Orthopaedic Surgery
DX: Z01.812 Encounter for preprocedural laboratory examination (principal); M48.061 Spinal stenosis, lumbar region without neurogenic claudication; M47.26 Other spondylosis with radiculopathy, lumbar region; Z22.322 Carrier or suspected carrier of Methicillin resistant Staphylococcus aureus; Z79.01 Long term (current) use of anticoagulants
CPT/HCPCS: 80048; 85025; 85610; 85730; 86850; 86900; 86901; 87070

== ENCOUNTER 2024-05-19 08:11 | Inpatient (IN) | payer OTHER ==
--- NOTE | 2024-05-19 06:20 | P.HPOR ---
History of Present Illness H&P Date: 05/13/24 .D:Date: 05/13/24 : 08:51am .T:Title: [facility] HISTORY AND PHYSICAL Age: 58 year Height: 5'8" Weight: 243 lbs BP:138/70 BMI: 36.95 kg/m2 Occupation: Disabled VAS: 5 IMPRESSION: It was my pleasure to have seen and examined Kvng. I reviewed the patient's clinical syndrome, physical findings, and imaging studies during the appointment today. It is my impression that the patient has a diagnosis of. 1. L2-S1 spondylosis with stenosis s/o previous L4-5 laminectomy with Adjacent segment disease 2. Bilateral lower extremity radiculopathy 3. Bilateral lower extremity weakness 4. Neurogenic claudication Spine Surgery Risk Review Mr. Molina is presenting for evaluation of low back pain. It was my pleasure to have seen and examined Mr. Molina. In our visit today we have had a chance to go over subjective complaints, physical examination findings and treatments including the natural course history without intervention and various interventional options. The patients imaging demonstrates: [facility] Lum[facility]: - Re-reviewed with the patient today. FINDINGS: Multilevel degeneration changes throughout the spine with osteophyte formation disc space narrowing and facet joint arthropathy. There is post fox gical change at L4 with laminectomy changes. There is a small caliber of the spinal canal throughout the visualized spine. Visualized neural foramen demonstrate narrowing worse at L4-L5 which is severe bilaterally due to facet joint arthropathy and disc bulging. There is multilevel neural foraminal stenosis which is mild at the other levels throughout the spine. There is no evidence for significant spinal canal stenosis. No evidence of fracture. Alignment is within normal limits. L5 hemisacralization of the right transverse process. IMPRESSION: Moderate degeneration changes of the spine with postsurgical changes of L4 laminectomy. There is severe bilateral L4-L5 neural foraminal stenosis. Findings are not significantly changed from prior.. 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 XRay taken on 05/07/22 of Lumbar Spine and Pelvis: - Re-reviewed with the patient today. AP pelvis shows severe R hip OA with joint space narrowing, subchondral sclerosis and cysts as well as femoral head remodeling. Lumbar films show severe spondylosis of L5-S1 with near complete disc collapse and evidence of vacuum disc. There are anterior osteophyte changes from L3-S1 with L4-5 disc collapse as well. N ofracture noted. no lesions noted. There is flattening of the normal lumbar lordosis with only about 20 deg of LL measured with a PI of 45. No other lesions noted. Coronal balance maintained. Post surgical changes noted at L4-5 with lami defect centrally. MRI from 06/06/2022 of the lumbar spine demonstrates: - Re-reviewed with the patient today. images reviewed with the patient demonstrate postsurgical changes L4-L5 with laminectomy defect good decompression as noted in this area. There is disc bulging with a annular defect at L4-L5 there is bilateral foraminal stenosis right greater than left at L4-L5 which could be contributing to the patient's symptoms. There is also spondylosis noted at L4 through S1 with disc height loss desiccation facet arthropathy and overgrowth contributing to foraminal stenosis as well. No lesions or fractures noted. Somewhat flattened lumbar lordosis at around 20. On physical exam, Mr. Molina demonstrates: A continued ache-like, throbbing, burning pain throughout the low back that radiates down into the bilateral lower extremities from the anterior thighs down into the feet. He states his leg pain is associated with numbness and tingling. He notes intermittent cold "icicle" sensations throughout the bilateral foot. The patient states his symptoms worsen after prolonged sitting. He reports experiencing severe sleep disturbances related to his ongoing pain and associated symptoms. The patient notes his symptoms have become debilitating. He can barly walk today in clinic because his legs have become so weak and painful. I have explained to the patient that as their condition progresses it will cause further neurological deficits and eventual paralysis. Based on the patients imaging, physical exam, and the rapid progression and disabling nature of their symptoms, at this time I recommend surgery in the form of a: revision L2-S1 decompression and fusion. I discussed the risk and benefits of this procedure at length with Mr. Molina. The patient agreed to considered pursuing the procedure abovementioned. Prior to surgery, she should follow up with her PCP (Cardio, ID, IM etc) for clearance. Questions were invited and answered, and the patient wishes to proceed as outlined below. Currently, I am recommendin.Revision L2-S1 decompression and fusion 3.Review of surgical risks and benefits as well as an educational packet on the proposed surgical procedure. Risks: All surgical procedures come with inherent risks, including those related to positioning, anesthesia, intraoperative findings, and postoperative complications. It is important to understand that surgery does not come with any guarantee of a successful outcome as complications and adverse events are always possible. The patient was given a handout in office today discussing the surgical p rocedure and risks associated with the intervention, both of which were discussed with the patient. These risks include but are not limited to the following: * Experiencing same, different or even worse symptoms in back, neck, arms, or legs compared to before surgery. Requiring further surgery or other forms of treatment presently or at some time in the future at same or other levels of the intended spine surgery. On an extreme but fortunately relatively rare basis severe complication such as blindness, stroke, heart attack, temporary and/or permanent nerve injury, paralysis, coma, or may occur, sometimes without known explanation. Surgical complications may include but are not limited to risk of infection, fluid accumulation in the surgical dissection site, including a seroma or h ematoma, that requires additional surgery, wound drainage, bleeding, new numbness or weakness, vision changes/loss, spinal fluid leakage, non-healing and/or infected incision, headaches, difficulty or inability to swallow, hoarseness, hemopneumothorax, pneumothorax, impotence, retrograde ejaculation, vaginal dryness; injury to nerves, spinal cord, blood vessels, lymphatics or other vital organs (i.e., bowel injury, injury to the great vessels); heterotopic bone formation; complications related to the hardware such as screws, rods, cages including misplaced hardware, device failure, instrumenta tion at the wrong spine level, hardware fracture/breakage, or hardware loosening; vertebral failure of the spinal column above or below the newly placed hardware; retained surgical instrumentations or devices and the need for further surgery. * Medical risks of the planned spine surgery include but are not limited to generalized Infections to the whole body or local areas outside of the surgica l site (sepsis), heart attack, bleeding, anaphylaxis, meningitis, seizure, epilepsy, hearing loss, burn barnes, laceration of the head or other areas of the body, bruising, hypersensitivity of the skin, bladder over distension; allergic reaction; shoulder injury related to positioning; fat, blood and air clots to other areas of the body like heart, lungs, brain; failure of internal organs such as lungs, kidneys, liver and excessive bleeding. If blood transfusions are necessary, note that transfusions may cause intolerance reactions such as anaphylaxis or other complex reactions. Despite best efforts, the results of spine surgery might not heal in terms of bone, soft tissues such as skin, fascia, ligaments, and joints. Additionally, in order to achieve best possible results, spine surgery may be carried out beyond the initially planned levels and involve decompression, fusion including insertion of hardware at levels other than the original intended area of surgical interest change some portions of the procedure in order to ensure the best possible outcomes. With spine surgery and spinal fusion, there are different off label uses of instrumentation (devices, implants and hardware) as well as biological substances (bone morphogenic proteins, demineralized bone matrix) as well as using extra bone from allograft sources (i.e. cadaver bone) or autograft (iliac crest bone, ribs, or the spine itself). The patient has been given information about these practices and their inherent risks and benefits. [facility] is an educational center that serves as a training facility for neurosurgical and orthopedic [employer] and Nursing students. Physician assistants are medically trained surgical providers who function in the outpatient, inpatient, and operating room setting under the direct supervision of the attending surgeon. [facility] has multiple operating rooms with single and overlapping rooms running daily. They currently function under the required guidelines as produced by the [facility] Finance Committee with regards to the overlapping rooms and will continue to comply with changes to this policy as they occur. The requirements include and are complied with as follows: (1) the critical portions of the overlapping rooms will not occur at the same time, (2) the attending physician will be physically present during the critical portions of the procedure and immediately available during the entire case, and (3) a back-up attending is designated should the primary attending not be immediately available. The patient has had a chance to review all the listed information, has been given print outs detailing this information, and has had all his/her questions answered to their satisfaction. It was my pleasure to have seen and examined Mr. Molina. In our visit today we have had a chance to go over my understanding of our patient's current condition, the natural course history without intervention and various interventional options. Questions were invited and answered, and the patient wishes to proceed as outlined above. I have seen and examined the patient for 25 minutes and we have spent more than 50% of the time in repeat and detailed couns eling about the patient's condition, its natural course history with out and as much as can be predicted with surgery and re-review of various surgical treatment options. In conclusion, Mr. Molina requested we proceed with the above suggested surgery and are willing to accept risks and limitations of the suggested surgery as nature of the disease process and our best attempts at treatment for the condition. Thank you again for allowing us to be part of your patient's care. Please don't hesitate to contact me if you have any further questions. FOLLOW UP: Post Procedure PLAN AT NEXT VISIT: X-Rays AP/LAT of Lumbar Spine PATIENT EDUCATION: Medications Reviewed: YES In our visit today Mr. Molina and I have had a chance to go over my understanding of the patient's current condition, the natural course history without intervention and various interventional options. Questions were invited and answered, and the patient wishes to proceed as outlined above. I will be sure to keep you updated after Mr. Molina returns here for further follow-up. Thank you again for your referral. Please do not hesitate to contact me if you have any further questions. Signed and authenticated by: Kenny Osorio [facility] [address] [place] [id number] This message is confidential, intended only for the named recipient(s) and may contain information that is privileged or exempt from disclosure under applicable law. If you are not the intended recipient(s), you are notified that the dissemination, distribution or copying of this information is strictly prohibited. If you received this message in error, please notify the sender then delete this message. # SIGNED BY Kenny Jeffrey (GOO)05/13/2024 12:32PM Past Medical History Past Medical History: Atrial Fibrillation, Heart Failure, COPD, Diabetes Mellitus, GERD/Reflux, Hypertension, Musculoskeletal Disorder, Sleep Apnea/CPAP/BIPAP Additional Past Medical History / Comment(s): DDD, spinal spondylosis, RT ARM numbness down armto fingers, bilateral knees occasionally buckle/wears right knee brace at times, chronic pain. NO CPAP USED History of Any Multi-Drug Resistant Organisms: MRSA Date of last positivie culture/infection: 1999 MDRO Source:: face Past Surgical History: Appendectomy, Cholecystectomy, Orthopedic Surgery Additional Past Surgical History / Comment(s): Cervical fusion/cage with bone from hip, back surgery d/t congenital defect,. 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 Past Anesthesia/Blood Transfusion Reactions: Previous Problems w/ Anesthesia Additional Past Anesthesia/Blood Transfusion Reaction / Comment(s): "Combative when coming out anesthesia." Pt has never had a blood transfusion. Smoking Status: Former smoker - Past Family History Mother Family Medical History: Deep Vein Thrombosis (DVT) Sister(s) Family Medical History: Cancer Additional Family Medical History / Comment(s): Colon cancer X2 sisters. Father Family Medical History: Myocardial Infarction ([place]) Additional Family Medical History / Comment(s): at 43 yrs of [place] Medications and Allergies Home Medications Medication Instructions Recorded Confirmed Type PARoxetine HCL [Paxil] 40 mg PO HS 12/21/19 05/18/24 History buPROPion HCL [buPROPion HCL SR] 150 mg PO BID 12/21/19 05/18/24 History metFORMIN HCL [Glucophage] 500 mg PO BID 12/21/19 05/18/24 History Gabapentin 800 mg PO QID 11/06/22 05/18/24 History Atorvastatin [Lipitor] 40 mg PO HS 03/01/23 05/18/24 History Budesonide [Pulmicort] 1 mg INHALATION RT-BID 11/18/23 05/18/24 History Budesonide/Formoterol Fumarate 2 puff INHALATION RT-BID 11/18/23 05/18/24 History [Symbicort 160-4.5 Mcg Inhaler] HYDROcodone/APAP 10-325MG [[place] 1 tab PO QID 11/18/23 05/18/24 History 10-325] Ipratropium Nebulized [Atrovent 0.5 mg INHALATION RT-QID 11/18/23 05/18/24 History Nebulized 0.2 MG/ML] Montelukast [Singulair] 10 mg PO HS 11/18/23 05/18/24 History Omeprazole [PriLOSEC] 40 mg PO DAILY 11/18/23 05/18/24 History Dapagliflozin Propanediol [Farxiga] 10 mg PO DAILY #30 tab 11/20/23 05/18/24 Rx Furosemide [Lasix] 40 mg PO DAILY #30 tab 11/20/23 05/18/24 Rx Rivaroxaban [Xarelto] 20 mg PO W/SUPPER #30 tab 11/20/23 05/18/24 Rx Doxycycline [Vibramycin] 100 mg PO BID 05/18/24 05/18/24 History Allergies Allergy/AdvReac Type Severity Reaction Status Date / Time No Known Allergies Allergy Verified 05/18/24 12:15 Physical Examination Osteopathic Statement: *. No significant issues noted on an osteopathic structural exam other than those noted in the History and Physical/Consult.
[~2024-05-19 08:11] MED LIST changes: +ACETAMINOPHEN TAB 500 MG TAB PO PRN; +GABAPENTIN 300 MG CAP PO PRN; +ONDANSETRON 4 MG/2 ML VIAL IVP PRN; -REGADENOSON 0.4 MG/5 ML SYRINGE IV PRN; +TRANEXAMIC 1,000 MG/100ML-NACL 1,000 MG in SALINE 1 100ML.BAG IVPB PRN
[2024-05-19] MEDS ORDERED: MIDAZOLAM 2 MG/2 ML VIAL IV PRN (08:26)
[2024-05-19] MEDS ORDERED: fentaNYL (PF) 50 MCG/ML 2 ML AMP IVP PRN (08:26)
[2024-05-19] MEDS ORDERED: LIDOCAINE 1% (10MG/ML) FOR IV START INTRADERMA PRN (08:26)
[2024-05-19 09:13] LABS: Glucose,Whole Blood 130 mg/dL (70-110)
[2024-05-19] MEDS: MIDAZOLAM 2 MG/2 ML VIAL IVP ONE (09:15)
[2024-05-19] MEDS: fentaNYL (PF) 50 MCG/ML 2 ML AMP IVP ONE (09:17)
[2024-05-19] MEDS: LACTATED RINGERS 1,000 ML IV SCH (09:29)
[2024-05-19] MEDS ORDERED: VANCOMYCIN IV PER PHARMACY 1 EACH MISC MISCELLANE PRN (09:30)
[2024-05-19] MEDS: IV FLUID CONTINUATION 1,000 ML IV ONE (09:38)
[2024-05-19] MEDS: DEXAMETHASONE SOD PHOSPHATE 4 MG/ML 1 ML VIAL IV ONE (10:00)
[2024-05-19] MEDS: ONDANSETRON 4 MG/2 ML VIAL IVP ONE (10:00)
--- NOTE | 2024-05-19 10:05 | P.ANPRN ---
Procedure Note - Anesthesia - Invasive Line Right Central Line Time Out Performed: Yes Date of Procedure: 05/19/24 Time of Procedure: 09:15 Location of Patient: PreOp Preparation: Sterile Prep, Sterile Dressing [place] Estephania Line Location: Internal Jugular Ultrasound Used: Yes Purpose - Visualization and Identification of Vasculature: Yes Needle Guage: 7 f Narrative: Invasive line placement per sterile protocol utilized. triple lumen Central line
--- NOTE | 2024-05-19 10:06 | P.ANPRN ---
Procedure Note - Anesthesia - Invasive Line Right Arterial Line Time Out Performed: Yes Date of Procedure: 05/19/24 Time of Procedure: 09:33 Location of Patient: PreOp Preparation: Sterile Prep, Sterile Dressing Arterial Line Location: Radial Ultrasound Used: No Purpose - Visualization and Identification of Vasculature: No Image Stored and Saved: No Narrative: Invasive line placement per sterile protocol utilized.
[2024-05-19] MEDS ORDERED: NEOSTIGMINE 1 MG/ML 10 ML VIAL ONE (10:07)
[2024-05-19] MEDS ORDERED: PROPOFOL 10 MG/ML 20 ML VIAL IV ONE (10:07)
[2024-05-19] MEDS ORDERED: HYDROmorphone (PF) 1 MG/ML ONE (10:07)
[2024-05-19] MEDS ORDERED: ROCURONIUM 10 MG/ML (5 ML VIAL) IV ONE (10:07)
[2024-05-19] MEDS ORDERED: TRANEXAMIC 1,000 MG/100ML-NACL PREMIX BAG ONE (10:07)
[2024-05-19] MEDS ORDERED: PHENYLEPHRINE 10 MG/ML VIAL ONE (10:07)
[2024-05-19] MEDS ORDERED: SUCCINYLCHOLINE CHLORIDE 200 MG/10 ML VIAL IV ONE (10:07)
[2024-05-19] MEDS ORDERED: fentaNYL (PF) 50 MCG/ML 2 ML AMP ONE (10:07)
[2024-05-19] MEDS ORDERED: LIDOCAINE 1% INJ 10MG/ML (20 ML MDV) ONE (10:07)
[2024-05-19] MEDS ORDERED: GLYCOPYRROLATE 0.2 MG/ML 2 ML VIAL ONE (10:07)
[2024-05-19] MEDS ORDERED: KETAMINE HCL IN 0.9 % NACL 50 MG/5 ML SYRINGE ONE (10:07)
[2024-05-19] MEDS ORDERED: MIDAZOLAM 2 MG/2 ML VIAL ONE (10:07)
[2024-05-19] MEDS ORDERED: ALBUMIN HUMAN 5% (25gm) 500 ML VIAL IVPB ONE (10:07)
--- NOTE | 2024-05-19 10:23 | XR ---
EXAMINATION TYPE: XR chest 1V DATE OF EXAM: 05/19/2024 COMPARISON: 12/31/2023 HISTORY: 58-year-old male Central line placement TECHNIQUE: Single frontal view of the chest is obtained. FINDINGS: ACDF and posterior cervical fusion hardware noted. Heart mildly enlarged. Slight increased interstitial and perihilar densities. Right IJ CVC tip within the right atrium. No consolidation or pleural effusion. IMPRESSION: 1. Right IJ CVC tip in the right atrium. 2. Correlate for CHF and worsening pulmonary vascular congestion.
[2024-05-19] MEDS: LACTATED RINGERS 1,000 ML IV ONE ×2 (10:52→16:42)
[2024-05-19] MEDS: GENTAMICIN 80 MG in SODIUM CHLORIDE 0.9% IRRIGATIO 3,000 ML IRRIGATION ONE (10:57)
[2024-05-19] MEDS: ceFAZolin 3,000 MG in SODIUM CHLORIDE 0.9% IRRIGATIO 3,000 ML IRRIGATION ONE (10:57)
[2024-05-19] MEDS: THROMBIN (BOVINE) 5,000 UNIT VIAL TOPICAL ONE (10:57)
[2024-05-19] MEDS ORDERED: MAGNESIUM HYDROXIDE 2,400 MG/30 ML CUP PO PRN (11:57)
[2024-05-19] MEDS ORDERED: HYDROcodone/APAP 10-325MG 1 EACH TAB PO PRN (11:57)
[2024-05-19] MEDS ORDERED: SENNOSIDES-DOCUSATE SODIUM 1 EACH TAB PO PRN (11:57)
[2024-05-19 13:22] LABS: ABG Base Excess -2.1 mmol/L; ABG Glucose Whole Blood 158 mg/dL (75-99); ABG HCO3 24 mmol/L (21-25); ABG Hematocrit 42 % (34.0-46.0); ABG Ionized Calcium 4.7 mg/dL (4.5-5.3); ABG Lactic Acid Whole Blood 1.6 mmol/L (0.5-1.6); ABG Oxygen Saturation 97.9 % (94-97); ABG PCO2 47 mmHg (35-45); ABG PH 7.32 (7.35-7.45); ABG PO2 167 mmHg (83-108); ABG Potassium Whole Blood 3.9 mmol/L (3.4-4.5); ABG Sodium Whole Blood 140 mmol/L (135-146); ABG TCO2 22 mmol/L (19-24); Allen Test Performed? Yes
[2024-05-19] MEDS: VANCOMYCIN 1,000 MG VIAL MISCELLANE ONE (16:08)
[2024-05-19 16:40] LABS: ABG Base Excess -2.9 mmol/L; ABG Glucose Whole Blood 184 mg/dL (75-99); ABG HCO3 24 mmol/L (21-25); ABG Hematocrit 40 % (34.0-46.0); ABG Ionized Calcium 4.7 mg/dL (4.5-5.3); ABG Lactic Acid Whole Blood 1.7 mmol/L (0.5-1.6); ABG Oxygen Saturation 98.3 % (94-97); ABG PCO2 50 mmHg (35-45); ABG PH 7.29 (7.35-7.45); ABG PO2 156 mmHg (83-108); ABG Potassium Whole Blood 3.6 mmol/L (3.4-4.5); ABG Sodium Whole Blood 142 mmol/L (135-146); ABG TCO2 22 mmol/L (19-24); Allen Test Performed? Yes
--- NOTE | 2024-05-19 17:13 | P.OP ---
Date of Procedure: 05/19/24 Preoperative Diagnosis: Current Active Problems Lumbar stenosis with neurogenic claudication (Acute) Lumbosacral spondylosis with radiculopathy (Acute) Weakness of both lower extremities (Acute) Facet arthropathy, lumbosacral (Acute) Facet arthropathy, lumbar (Acute) Previous back surgery (Acute) Postoperative Diagnosis: Current Active Problems Lumbar stenosis with neurogenic claudication (Acute) Lumbosacral spondylosis with radiculopathy (Acute) Weakness of both lower extremities (Acute) Facet arthropathy, lumbosacral (Acute) Facet arthropathy, lumbar (Acute) Previous back surgery (Acute) Procedure(s) Performed: 1. L2-3 POSTEROLATERAL AND INTERBODY FUSION (57747) 2. L3-4 POSTEROLATERAL AND INTERBODY FUSION (68533) 3. L4-5 POSTEROLATERAL AND INTERBODY FUSION (53300) 4. L5-S1 POSTEROLATERAL AND INTERBODY FUSION (57478) 5. BILATERAL OPEN SACROILLIAC JOINT FUSION FOR LONG CONSTRUCT STABILITY AND SACROILLITIS 6. L2-PELVIS SEGMENTAL INSTRUMENTATION (23791) 6. L2-3, L3-4, L4-5, L5-S1 BILATERAL LAMINECTOMY, FACETECTOMY AND FORAMINOTOMY FOR DECOMPRESSION AND CAGE PLACEMENT (87439, 67605) 7. ATTACHMENT OF THE CAUDAL END OF THE CONSTRUCT TO THE PELVIS, NOT SACRUM (07170) 8. INSERTION OF BIOMECHANICAL DEVICES L2-3, L3-4, L4-5, L5-S1 (13017 X4), CAGES 9. USE OF Coull NAVIGATION FOR SCREW PLACEMENT (06190) USE OF IONM ALL SCREWS TESTING > 20 mA CPTMOD 22 THIS CASE TOOK 75% LONGER THAN EXPECTED DUE TO CORMORBID CONDITIONS, HIGH BMI >35, EXTENT OF LUMBAR DISEASE AND HIGH TECHNICALITY OF THE CASE. Implants: -JOSE EVEREST RODS AND SCREWS -SIROS B/L SIJ SCREWS -GLOBUS SABLE CAGES 12MM LONG 9-17 8 DEG; 10MM 9-17 8 DEG X3 -MAGNATOS, CONTOUR, ARTHROCELL, ALLOCELL, DBM, AUTOGRAFT Anesthesia: GETA Surgeon: Kenny Jeffrey Bowstring Maker #1: Gdieon Tapia (WAS PRESENT AND ASSISTED WITH ALL ASPECTS OF THE CASE FROM POSITIONING TO DRESSING) Estimated Blood Loss (ml): 700 IV fluids (ml): 2,700 Urine output (ml): 450 Pathology: none sent Condition: stable Disposition: PACU Indications for Procedure: Mr. Molina is presenting for evaluation of low back pain. It was my pleasure to have seen and examined Mr. Molina. In our visit today we have had a chance to go over subjective complaints, physical examination findings and treatments including the natural course history without intervention and various interventional options. The patients imaging demonstrates: [facility] - Re-reviewed with the patient today. FINDINGS: Multilevel degeneration changes throughout the spine with osteophyte formation disc space narrowing and facet joint arthropathy. There is post fox gical change at L4 with laminectomy changes. There is a small caliber of the spinal canal throughout the visualized spine. Visualized neural foramen demonstrate narrowing worse at L4-L5 which is severe bilaterally due to facet joint arthropathy and disc bulging. There is multilevel neural foraminal stenosis which is mild at the other levels throughout the spine. There is no evidence for significant spinal canal stenosis. No evidence of fracture. Alignment is within normal limits. L5 hemisacralization of the right transverse process. IMPRESSION: Moderate degeneration changes of the spine with postsurgical changes of L4 laminectomy. There is severe bilateral L4-L5 neural foraminal stenosis. Findings are not significantly changed from prior.. 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 XRay taken on 05/07/22 of Lumbar Spine and Pelvis: - Re-reviewed with the patient today. AP pelvis shows severe R hip OA with joint space narrowing, subchondral sclerosis and cysts as well as femoral head remodeling. Lumbar films show severe spondylosis of L5-S1 with near complete disc collapse and evidence of vacuum disc. There are anterior osteophyte changes from L3-S1 with L4-5 disc collapse as well. N ofracture noted. no lesions noted. There is flattening of the normal lumbar lordosis with only about 20 deg of LL measured with a PI of 45. No other lesions noted. Coronal balance maintained. Post surgical changes noted at L4-5 with lami defect centrally. MRI from 06/06/2022 of the lumbar spine demonstrates: - Re-reviewed with the patient today. images reviewed with the patient demonstrate postsurgical changes L4-L5 with laminectomy defect good decompression as noted in this area. There is disc bulging with a annular defect at L4-L5 there is bilateral foraminal stenosis right greater than left at L4-L5 which could be contributing to the patient's symptoms. There is also spondylosis noted at L4 through S1 with disc height loss desiccation facet arthropathy and overgrowth contributing to foraminal stenosis as well. No lesions or fractures noted. Somewhat flattened lumbar lordosis at around 20. On physical exam, Mr. Molina demonstrates: A continued ache-like, throbbing, burning pain throughout the low back that radiates down into the bilateral lower extremities from the anterior thighs down into the feet. He states his leg pain is associated with numbness and tingling. He notes intermittent cold "icicle" s ensations throughout the bilateral foot. The patient states his symptoms worsen after prolonged sitting. He reports experiencing severe sleep disturbances related to his ongoing pain and associated symptoms. The patient notes his symptoms have become debilitating. He can barly walk today in clinic because his legs have become so weak and painful. I have explained to the patient that as their condition progresses it will cause further neurological deficits and eventual paralysis. Based on the patients imaging, physical exam, and the rapid progression and disabling nature of their symptoms, at this time I recommend surgery in the form of a: revision L2-S1 decompression and fusion. I discussed the risk and benefits of this procedure at length with Mr. Molina. The patient agreed to considered pursuing the procedure abovementioned. Prior to surgery, she should follow up with her PCP (Cardio, ID, IM etc) for clearance. Questions were invited and answered, and the patient wishes to proceed as outlined below. Currently, I am recommendin.Revision L2-S1 decompression and fusion Description of Procedure: L2-PELVIS DECOMPRESSION AND FUSION (KRISTEN) The patient was seen and examined in the preoperative area. All preoperative protocols were followed. Informed consent was obtained, risks and benefits of the procedure were discussed at length. Risks including bleeding infection damage to the surrounding tissue and risk of reoperation were discussed with the patient. Risk of anesthesia up to and including was discussed with the patient. These are outlined in the risk review. They were willing to accept these risks and all the risks of surgery. The patient was given a weight-based dose of antibiotics in the form of 3 g Ancef. The patient was seen and evaluated by the anesthesia team who deemed them fit for surgery. The site was marked, the patient was willing to proceed with the procedure. The patient was transferred to the operative suite by the Department of anesthesia. They were then drifted off to sleep by the department anesthesia and GETA was performed. The patient tolerated this well. Zavala catheter was placed by nursing staff, a-traumatically. Once confirmation of lines and ventilation the patient was transferred to a prone Trios spine table very carefully. The head was secured and stable. X Ray confirmed alignment. All bony prominences including wrists, elbows, axilla, chest, hips, and thighs, and feet were padded very well. Special attention was paid to the genitalia, and these were padded accordingly. SCDs were placed on bilateral lower extremities and were connected. Arms were well padded and placed at 90/90 up and out and well padded. Safety strap and tape placed on the patient. Once in position, again we confirmed good ventilation capabilities and that lines were running appropriately. The patients lumbosacral pelvic was then exposed. Hair was removed for incision. 1010s were placed outlining the incision site. Standard alcohol was used to clean the incision site and allowed to dry. C-arm was used to bio-hodan the patient and confirm level for incision which was marked with a skin marker. Operative briefing was performed with all teams and everyone in agreement to proceed. The patient was then prepped and draped in a normal sterile fashion. Timeout was then performed, and all parties agreed with the procedure to be performed. Midline skin incision was then made over the previously bookmarked area and dissection taken down to the lumbosacral fascia which was identified and cleaned with a singh. There was excessive sub-q adipose that was obtrusive and needed to be retracted. Once midline was identified, fasciotomy was made over the SP of L1-S1 and pelvis. Subperiosteal dissection was then taken down over the lamina and facet joints and TPs were exposed and trough made posterolateral. TPs were then decorticated with a high speed fina for lateral fusion. Dissection was taken out over the sacrum to the pelvis. SI joint identified and modified [place] starting point for pelvic screws identified as well. Retractors placed. Wound was irrigated and lateral image with penfield 4 placed at the pars of L4 confirmed levels for operation. SP clamp was then placed for the Pyrolia navigation tracker and secured. The wound was then filled with NSS and Z-drape. A 3D Ziehm spin was then obtained and registered. Once confirmation of accur acy screws were then placed from L2-Pelvis using navigation. Navigated high speed fina was used to make a dispatcher ship pilot hole followed by a navigated awl-tap passed through the pedicle into the body. A ball tip probe then confirmed within the pedicle. Screw was then measured and placed using a navigated screwdriver. After screws were placed from L2-S1, AP image confirmed safe placement of screws. Lateral images as well as navigation were then used to place bilateral pelvic screws. Starting point selected just lateral to the SI joint and S2 pseudo facet. Lateral image taken and fina used to make the dispatcher ship pilot hole. Gearshift then used to pass into the pelvis under lateral imaging just above the sciatic notch. 30 deg/30deg iliac oblique then taken to confirm within the teardrop and ball tip probe used to probe good bone. Screw was then measured and selected and placed under lateral imaging. This was repeated on the contralateral side. Screws were then visualized and appeared safe. Screws were then tested, and reliably tested screws tested above 20 mA. We then proceeded to decompression and interbody placement. Starting at L5-S1, bilateral laminectomy, complete facetectomy and fo raminotomies were performed using high speed bur, Kerrison rongeur. There was exuberant bone formation, osteophytes and scar tissue surrounding these joints as well as the dura. Once exposed the neural elements were protected. Osteotome was used to make osteotomy in L5 and S1 and for complete disc removal. Osteotome was then used to widen this bilaterally. This was passed into the anterior 1/3 of L5. This allowed for loosening of this level and correction. A cage was then selected based on shaving and trials. Bleeding endplates were encountered and cartilage removed. Autograft, allograft were then placed anterior to the cage. The cage was then impacted into place under lateral imaging while protecting neural elements. The cage was then expanded into position and showed good lift and correction. Methodist of lordosis and height achieved. Meticulous hemostasis then performed. Cage was backfilled with DBM and the area irrigated. We then proceeded to L4-5. At L4-5, bilateral laminectomy, complete facetectomy and foraminotomy was performed as described above. Again, exuberant scar tissue and bone formation was encountered and at this level due to previous laminectomy here and central defect with large scar bed and dural scarring as well as neural scarring. There was also a large disc osteophyte complex that was identified once disc space was found. The dura was carefully dissected off this anteriorly and b/l. Once encountered, the disc space was then accessed in a similar fashion and neural elements protected. Once completed and complete discectomy performed there was good mobility at this level. Cage was then sized and selected. Autograft and allograft was then placed anterior in the disc space and the cage was then inserted and impacted into place under lateral. AP image, as before, was taken to ensure midline placement. The cage was then expanded into position. During expansion, the cage seemed to fail to expand completely on the RHS. The LHS expanded very well and recreated height and lordosis. The cage was tested and was very stable and since it was in safe position without any other issues it was elected to keep the cage in position. The wound was irrigated. Meticulous hemostasis then performed, and attention turned to L3-4. At L3-4 again bilateral laminectomy, complete facetectomy and foraminotomy were performed. The neural elements were less scared at this level; however, it was very unstable. The elements were then protected, and disc space accessed. Sequential shaving performed until desired height and lordosis. Cage selected, and graft placed anterior to the cage within the disc space. Cage was then placed under lateral image, expanded and had good height, lordosis and deformity correction. The wound was irrigated, and meticulous hemostasis performed once again. At L2-3 again bilateral laminectomy, complete facetectomy and foraminotomy were performed. The elements were then protected, and disc space accessed. Sequential shaving performed until desired height and lordosis. Cage selected, and graft placed anterior to the cage within the disc space. Cage was then placed under lateral image, expanded and had good height, lordosis and deformity correction. The wound was irrigated, and meticulous hemostasis performed once again. Attention was then drawn to armand placement. Rods were selected, measured, cut and bent to appropriate lordosis. They were then secured into pelvic screws b/l. Sequential reduction then done into each screw and set screw placed. Set screws were then final tightened and lateral image showed good lordosis reduction with increase around 10 deg from starting. Once rods were secured, cross links were selected and placed and final tightened. The wound was then irrigated with 3L Ancef irrigation, 3L gentamicin irrigation, 1L Betadine, 1L Irricept and 3L NSS. Surgicel was then placed on the dura, which was inspected and had no injury. Then, in the posterolateral gutter was placed, MagnatOs, Autograft and allograft. This was impacted into position and surgical placed over it. 2g Vanco powder was then placed deep in the wound. A deep, subfascial drain was placed and a superficial facial drain placed. We then proceeded with layered closure. #1 PDS placed in the deep fascia. 0 Vicryl placed in the deep subq, 2-0 placed in the superficial subq and torsten placed in the skin. The wound edges approximated very well. The wound was then cleaned with ETOH and dressed with adaptic, 4x4, ABD pads and foam tape. Drains sewed into position. IONM confirmed no changes. The patient was then transferred off the [facility] spine table to their hospital bed a-traumatically. Drains continued to hold suction. The patient was then extubated and transferred to the ICU in stable condition having tolerated the procedure with no complications.
--- NOTE | 2024-05-19 17:39 | XR ---
EXAMINATION TYPE: XR lumbar spine 2 or 3V, FL guidance operating room Intraoperative/procedural fluor oscopic services were provided. Total fluoroscopy time is 84 seconds with a total of 7 submitted imag es to PACS. Please see the operative/procedural note for further details. DAP: 87.6 Gycm2
[2024-05-19] MEDS: HYDROmorphone 0.5 MG/0.5 ML SYRINGE IVP PRN (17:58)
[2024-05-19] MEDS: IPRATROPIUM-ALBUTEROL 3 ML NEB INHALATION STA ×2 (18:41→20:18)
[2024-05-19] MEDS: LABETALOL SYRINGE 5 MG/ML (4 ML SYR) IVP STA (18:42)
[2024-05-19 20:06] LABS: Glucose,Whole Blood 169 mg/dL (70-110)
[2024-05-19] MEDS: GABAPENTIN 400 MG CAP PO SCH ×2 (21:07→21:44)
[2024-05-19] MEDS: HYDROmorphone 1 MG/ML 1 ML SYRINGE IVP PRN (21:07)
[2024-05-19] MEDS: LABETALOL 5 MG/ML VIAL MDV IVP STA (21:15)
[2024-05-19] MEDS ORDERED: DILTIAZEM 5 MG/ML 5 ML VIAL IVP STA (21:30)
[2024-05-19] MEDS: DILTIAZEM 125 MG in SODIUM CHLORIDE 0.9% 100 ML IV SCH (21:52)
[2024-05-19] MEDS: DILTIAZEM DRIP BOLUS FROM BAG 1 MG SOLN IV STA (21:53)
[2024-05-19] MEDS: VANCOMYCIN 1,750 MG in SODIUM CHLORIDE 0.9% 500 ML 500 ML IVPB ONE ×2 (21:59→22:54)
[2024-05-19] MEDS: oxyCODONE-APAP 7.5-325MG 1 EACH TAB PO PRN (22:52)
[2024-05-20] MEDS: CYCLOBENZAPRINE 10 MG TAB PO PRN (00:56)
--- NOTE | 2024-05-20 01:45 | P.CNPUL ---
History of Present Illness Consult date: 05/20/24 Requesting physician: Kenny Jeffrey Reason for consult: other (ICU management) Chief complaint: Elective lumbar back surgery History of present illness: Patient is a 58-year-old white male with past medical history significant for obstructive sleep apnea with home CPAP, COPD, ex tobacco smoker, marijuana smoker, atrial fibrillation with previous cardioversion, diabetes mellitus, hypertension, heart failure, and prior cervical level spine surgery. His primary care provider is Dr. Deuce Brito. Patient has been having issues with lower back pain with radiculopathy like symptoms. He was found to have severe L2-S1 spondylosis with stenosis. Patient was brought into the hospital yesterday for an elective L2-S1 posteriorlateral and interbody fusion and cage placement. Patient was extubated postoperatively and transferred to the intensive care unit. Postoperatively, he was noted to be lethargic and confused. Blood gases were drawn which showed a PaO2 of 156, pCO2 of 50, pH of 7.29. Patient was placed on BiPAP per my supervising physician recommendation. Current BiPAP settings are 12/5 with an FiO2 40%. Patient is generating tidal volumes between 400 and 500. Respiratory rate is in the mid 20s. He is in no respiratory distress. Chest x-ray postoperatively shows cardiomegaly with slight increased interstitial and perihilar densities. No consolidations or pleural effusions. Concerning for mild CHF exacerbation. Patient is known to have chronic diastolic heart failure. Most recent available echocardiogram from October, demonstrated preserved left ventricular ejection fraction of 50 to 55% as well as mild mitral regurgitation. He takes Lasix daily while at home. Also, has history of paroxysmal atrial fibrillation and is normally anticoagulated on Eliquis, this was stopped preoperatively for the procedure. He did go into atrial fibrillation with rapid ventricular response postoperatively. Was started on a Cardizem infusion which is currently infusing at 5 mg/h. Rate is better controlled in the low 100s. Blood pressure is normotensive. Patient is currently lying supine in bed. He is on BiPAP with above-mentioned settings. He is alert and answers my questions appropriately. He is complaint at the moment is his postsurgical back pain. He is receiving a combination of as needed Dilaudid and [place]'s. Lower extremity strength is intact and he denies any weakness or numbness. He will be monitored in the intensive care unit. Review of Systems REVIEW OF SYSTEMS: CONSTITUTIONAL: Denies any recent significant weight loss or weight gain. EYES: Denies change in vision. EARS, NOSE, MOUTH, THROAT: Denies headaches, denies sore throat. CARDIOVASCULAR: Denies chest pain, palpitations or syncopal episodes. RESPIRATORY: Denies shortness of breath, cough, congestion or hemoptysis. GASTROINTESTINAL: Denies change in appetite, abdominal pain, nausea and vomiting, or diarrhea GENITOURINARY: Denies hematuria, denies infections. MUSKULOSKELETAL: Admits postsurgical lumbar back pain. No lower extremity weakness or numbness. No urinary or fecal incontinence. INTEGUMENTARY: Denies rash, denies eczema. NEUROLOGICAL: Denies recent memory loss, no recent seizure activity. PSYCHIATRIC: Denies anxiety, denies depression. HEMATOLOGIC/LYMPHATIC: Denies anemia, denies enlarged lymph node Past Medical History Past Medical History: Atrial Fibrillation, Heart Failure, COPD, Diabetes Mellitus, GERD/Reflux, Hypertension, Musculoskeletal Disorder, Sleep Apnea/CPAP/BIPAP Additional Past Medical History / Comment(s): DDD, spinal spondylosis, RT ARM numbness down armto fingers, bilateral knees occasionally buckle/wears right knee brace at times, chronic pain. NO CPAP USED History of Any Multi-Drug Resistant Organisms: MRSA Date of last positivie culture/infection: 1999 MDRO Source:: face Past Surgical History: Appendectomy, Cholecystectomy, Orthopedic Surgery Additional Past Surgical History / Comment(s): Cervical fusion/cage with bone from hip, back surgery d/t congenital defect,. 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 Past Anesthesia/Blood Transfusion Reactions: Previous Problems w/ Anesthesia Additional Past Anesthesia/Blood Transfusion Reaction / Comment(s): "Combative when coming out anesthesia." Pt has never had a blood transfusion. Smoking Status: Former smoker - Past Family History Mother Family Medical History: Deep Vein Thrombosis (DVT) Sister(s) Family Medical History: Cancer Additional Family Medical History / Comment(s): Colon cancer X2 sisters. Father Family Medical History: Myocardial Infarction ([place]) Additional Family Medical History / Comment(s): at 43 yrs of [place] Medications and Allergies Home Medications Medication Instructions Recorded Confirmed Type PARoxetine HCL [Paxil] 40 mg PO HS 12/21/19 05/18/24 History buPROPion HCL [buPROPion HCL SR] 150 mg PO BID 12/21/19 05/18/24 History metFORMIN HCL [Glucophage] 500 mg PO BID 12/21/19 05/18/24 History Gabapentin 800 mg PO QID 11/06/22 05/18/24 History Atorvastatin [Lipitor] 40 mg PO HS 03/01/23 05/18/24 History Budesonide [Pulmicort] 1 mg INHALATION RT-BID 11/18/23 05/18/24 History Budesonide/Formoterol Fumarate 2 puff INHALATION RT-BID 11/18/23 05/18/24 H istory [Symbicort 160-4.5 Mcg Inhaler] HYDROcodone/APAP 10-325MG [[place] 1 tab PO QID 11/18/23 05/18/24 History 10-325] Ipratropium Nebulized [Atrovent 0.5 mg INHALATION RT-QID 11/18/23 05/19/24 History Nebulized 0.2 MG/ML] Montelukast [Singulair] 10 mg PO HS 11/18/23 05/18/24 History Omeprazole [PriLOSEC] 40 mg PO DAILY 11/18/23 05/18/24 History Dapagliflozin Propanediol [Farxiga] 10 mg PO DAILY #30 tab 11/20/23 05/19/24 Rx Furosemide [Lasix] 40 mg PO DAILY #30 tab 11/20/23 05/18/24 Rx Rivaroxaban [Xarelto] 20 mg PO W/SUPPER #30 tab 11/20/23 05/18/24 Rx Doxycycline [Vibramycin] 100 mg PO BID 05/18/24 05/18/24 History Allergies Allergy/AdvReac Type Severity Reaction Status Date / Time No Known Allergies Allergy Verified 05/19/24 08:41 Physical Exam Vitals: Vital Signs Temp Pulse Pulse Resp BP BP BP 05/20/24 00:00 106 H 108 H 19 135/93 05/19/24 23:30 96 18 135/93 05/19/24 23:23 05/19/24 23:00 100 9 L 135/93 05/19/24 22:30 126 H 18 135/93 05/19/24 22:00 116 H 19 135/93 05/19/24 21:39 06/25/24 21:30 141 H 14 135/93 05/19/24 21:21 05/19/24 21:00 98.0 F 138 H 17 135/93 05/19/24 20:15 117 H 20 129/68 133/59 05/19/24 20:00 138 H 22 123/76 134/70 05/19/24 19:30 113 H 20 129/73 134/69 05/19/24 19:15 134 H 22 137/89 144/73 05/19/24 19:00 139 H 22 132/64 139/71 05/19/24 18:45 113 H 26 H 144/72 153/80 05/19/24 18:30 126 H 24 139/86 148/73 05/19/24 18:15 118 H 26 H 143/80 121/69 05/19/24 17:44 126 H 28 H 164/68 05/19/24 17:29 97.5 F L 144 H 18 145/74 05/19/24 09:54 86 16 155/88 05/19/24 08:57 97.8 F 75 16 181/92 Pulse Ox FiO2 05/20/24 00:00 93 L 35 05/19/24 23:30 93 L 05/19/24 23:23 40 05/19/24 23:00 97 05/19/24 22:30 93 L 05/19/24 22:00 94 L 35 05/19/24 21:39 40 05/19/24 21:30 96 05/19/24 21:21 40 05/19/24 21:00 94 L 05/19/24 20:15 95 50 05/19/24 20:00 95 50 05/19/24 19:30 95 50 05/19/24 19:15 86 L 05/19/24 19:00 91 L 05/19/24 18:45 90 L 05/19/24 18:30 87 L 05/19/24 18:15 91 L 05/19/24 17:44 91 L 05/19/24 17:29 93 L 05/19/24 09:54 98 05/19/24 08:57 95 Intake and Output 05/19/24 05/19/24 05/20/24 14:59 22:59 06:59 Intake Total 2051 775 550 Output Total 1575 150 Balance 2051 -800 400 Intake: IV 2051 600 Intake, IV Titration 75 550 Amount Diltiazem 125 mg In 5 10 Sodium Chloride 0.9% 100 ml @ 5 MG/HR 5 mls/hr IV .Q24H [facility] Rx#:[id number] Lactated Ringers 1,000 ml 20 40 @ 20 mls/hr IV .Q24H [facility] Rx#:[id number] Vancomycin 1,750 mg In 500 Sodium Chloride 0.9% 500 ml 500 ml @ 167 mls/hr IVPB ONCE ONE Rx#: [id number] ceFAZolin 2 gm In Sodium 50 Chloride 0.9% 50 ml @ 100 mls/hr IVPB Q8H [facility] Rx#: [id number] Oral 100 Output: Urine 825 150 Estimated Blood Loss 750 Other: Voiding Method Indwelling Catheter Weight 114.1 kg 118.2 kg ABP, PAP, CO, CI - Last 8 Hours Arterial Blood Pressure 118/73 Arterial Blood Pressure 119/72 Arterial Blood Pressure 118/72 Arterial Blood Pressure 109/71 Arterial Blood Pressure 112/69 Arterial Blood Pressure 129/80 Arterial Blood Pressure 146/94 GENERAL EXAM: Alert, 58-year-old obese white male, comfortable in no apparent distress. HEAD: Normocephalic and atraumatic EYES: Normal reaction of pupils, equal size. NOSE: Clear with pink turbinates. THROAT: No erythema or exudates. NECK: No masses, no JVD. Right IJ central line catheter CHEST: No chest wall deformity. LUNGS: Equal air entry with diminished lung sounds bilateral. No crackles, wheeze, rhonchi or dullness. On BiPAP with settings 12/5 and FiO2 of 40%. No conversational dyspnea or accessory muscle use.. CVS: S1 and S2 normal with no audible murmur, irregular rhythm. No extra heart sounds ABDOMEN: No hepatosplenomegaly, active bowel sounds, no guarding or rigidity. SPINE: Postsurgical lumbar dressing intact, without any drainage or shadowing. Hemovac drain with very minimal amount of sanguinous output. SKIN: No rashes CENTRAL NERVOUS SYSTEM: Currently alert and oriented x 3. No focal deficits, tone is normal in all 4 extremities. Bilateral lower extremity strength graded 5/5. Sensation intact. EXTREMITIES: There is no peripheral edema, clubbing, or cyanosis. Peripheral pulses are intact. Results - Laboratory Findings ABG ABG pH 7.29 (7.35-7.45) L 05/19/24 16:42 ABG pCO2 50 mmHg (35-45) H 05/19/24 16:42 ABG pO2 156 mmHg (83-108) H 05/19/24 16:42 ABG O2 Saturation 98.3 % (94-97) H 05/19/24 16:42 Abnormal lab findings: Abnormal Labs 05/19/24 05/19/24 05/19/24 09:11 13:24 16:42 ABG pH 7.32 L 7.29 L ABG pCO2 47 H 50 H ABG pO2 167 H 156 H ABG O2 Saturation 97.9 H 98.3 H ABG Glucose 158 H 184 H ABG Lactic Acid 1.7 H Hemoglobin 12.9 L POC Glucose (mg/dL) 130 H Arterial Blood Glucose 158 H 184 H 05/19/24 20:05 ABG pH ABG pCO2 ABG pO2 ABG O2 Saturation ABG Glucose ABG Lactic Acid Hemoglobin POC Glucose (mg/dL) 169 H Arterial Blood Glucose - Diagnostic Findings Chest x-ray: image reviewed Assessment and Plan Assessment: Severe L2-S1 spondylosis and stenosis status postoperative day #1 following an L2-S1 posterior lateral and interbody fusion and cage placement. No intraoperative complications were reported. Postoperatively, while in the intensive care unit patient was noted to be increasingly lethargic and confused. ABG was drawn consistent with hypercapnic respiratory failure. Patient was placed on BiPAP. Acute hypoxemic and hypercapnic respiratory failure, currently on BiPAP, likely secondary to a combination of medication effect and possible a mild exacerbation of diastolic congestive heart failure. Chest x-ray postoperatively shows cardiomegaly with slight increased interstitial and perihilar densities. No consolidations or pleural effusions. Concerning for mild CHF exacerbation. Hypercapnic encephalopathy, improved Atrial fibrillation with rapid ventricular response, patient has history of paroxysmal atrial fibrillation and previous cardioversion, currently in A-fib RVR and was started on a Cardizem infusion which is infusing at 5 mg/h. Rate is better controlled. Anticoagulation was held preoperatively for the procedure. History of obstructive sleep apnea, reportedly with home CPAP Chronic obstructive pulmonary disease Former tobacco smoker Marijuana smoker History of hypertension History of diabetes mellitus History of heart failure with preserved ejection fraction, most recent available echocardiogram was noted History of prior C2-T2 decompression and fusion Plan: Patient's medications, labs, chest x-ray reviewed Continue on BiPAP with current settings, at least throughout the night Signs of CO2 narcosis improved with BiPAP Will restart Lasix in the form of 40 mg IV daily. Repeat chest x-ray in the morning Add DuoNebs [id number], budesonide inhalation, formoterol inhalation Continue on Cardizem infusion for rate control. Restart anticoagulation when cleared by orthopedic surgeon Cardiology has been consulted Postoperative pain is being managed with a combination of as needed Dilaudid and [place]'s. Follow-up CT of the lumbar spine is ordered. Activity orders per orthopedic surgery Protonix for GI prophylaxis SCDs are on Patient is currently being monitored in the intensive care unit. Will continue to follow make recommendations along the way. I have personally seen and examined the patient, performed the documentation and the assessment and plan as written. Number of minutes spent on the visit:20 Time with Patient: Greater than 30
[2024-05-20] MEDS: FUROSEMIDE 10 MG/ML 4 ML VIAL IV SCH ×2 (02:12→08:25)
[2024-05-20] MEDS: HYDROcodone/APAP 10-325MG 1 EACH TAB PO PRN (03:06)
[2024-05-20 03:36] LABS: Basophils % (A) 0 %; Eosinophils % (A) 0 %; HCT 42.6 % (39.0-53.0); HGB 12.9 gm/dL (13.0-17.5); Lymphocytes # (A) 1.1 k/uL (1.0-4.8); Lymphocytes % (A) 7 %; MCH 27.3 pg (25.0-35.0); MCHC 30.3 g/dL (31.0-37.0); MCV 89.9 fL (80.0-100.0); Mean Platelet Volume 7.4; Monocytes # (A) 1.1 k/uL (0-1.0); Monocytes % (A) 6 %; Neutrophils # (A) 14.2 k/uL (1.3-7.7); Neutrophils % (A) 86 %; Platelet Count 272 k/uL (150-450); RBC 4.74 m/uL (4.30-5.90); RDW 15.6 % (11.5-15.5); WBC 16.6 k/uL (3.8-10.6)
[2024-05-20 03:55] LABS: African American GFR (CKD) >90 (>60 ml/min/1.73 sqM); Anion Gap 6 mmol/L; Blood Urea Nitrogen 15 mg/dL (9-20); Calcium 8.6 mg/dL (8.4-10.2); Carbon Dioxide 25 mmol/L (22-30); Chloride 108 mmol/L (98-107); Glucose 148 mg/dL (74-99); Non-African American GFR(CKD) >90 (>60 ml/min/1.73 sqM); Potassium 3.6 mmol/L (3.5-5.1); Sodium 139 mmol/L (137-145)
[2024-05-20] MEDS ORDERED: Potassium Replacement Protocol 1 EACH MISC MISCELLANE PRN (04:39)
[2024-05-20 05:21] LABS: Glucose,Whole Blood 164 mg/dL (70-110)
[2024-05-20] MEDS: POTASSIUM CHLORIDE ER 20 MEQ TAB.ER PO SCH (05:46)
[2024-05-20] MEDS: INSULIN ASPART (NovoLOG) 100 UNIT/ML VIAL SQ SCH (06:26)
--- NOTE | 2024-05-20 07:34 | XR ---
EXAMINATION TYPE: XR chest 1V portable DATE OF EXAM: 05/20/2024 HISTORY: Shortness of breath. COMPARISON: 05/19/2024 TECHNIQUE: Single view of the chest is submitted. FINDINGS: Demonstrated are scattered senescent parenchymal change. There is no evidence for focal infiltrate. Continued cardiomegaly with pulmonary venous congestion. No evidence for overt failure. Central venou s line unchanged in position. Hilar and mediastinal structures are within normal limits. Degenerative changes are seen of the dorsal spine. IMPRESSION: 1. Continued cardiomegaly with pulmonary venous congestion. No evidence for overt failure. Central v enous line unchanged in position.
[2024-05-20] MEDS ORDERED: VANCOMYCIN IV PER PHARMACY 1 EACH MISC MISCELLANE PRN (07:35)
[2024-05-20] MEDS: HEPARIN SODIUM,PORCINE 5,000 UNIT/ML 1 ML VIAL SQ SCH (07:50)
[2024-05-20] MEDS: SENNOSIDES-DOCUSATE SODIUM 1 EACH TAB PO SCH (07:50)
[2024-05-20] MEDS: PANTOPRAZOLE 40 MG TABLET PO SCH (07:50)
[2024-05-20] MEDS: buPROPion SR 150 MG TABLET.ER PO SCH (07:50)
[2024-05-20] MEDS: FORMOTEROL FUMARATE 20 MCG/2 ML NEBU INHALATION SCH (07:52)
[2024-05-20] MEDS: IPRATROPIUM-ALBUTEROL 3 ML NEB INHALATION SCH (07:52)
[2024-05-20] MEDS: BUDESONIDE 1 MG/2 ML NEBU INHALATION SCH (07:52)
[2024-05-20] MEDS ORDERED: IPRATROPIUM 0.5 MG/2.5 ML NEBU INHALATION SCH (08:00)
--- NOTE | 2024-05-20 08:09 | P.CRDCN ---
History of Present Illness History of present illness: HISTORY OF PRESENTING ILLNESS This is a pleasant 58-year-old with past medical history significant for COPD, chronic diastolic heart failure, tobacco abuse, persistent atrial fibrillation, diabetes mellitus type 2, hypertension, hyperlipidemia. He follows in the office with Dr. Menard. Patient presented for elective lumbar surgery which was performed yesterday without incident with approximately 450 mL blood loss. Patient did receive IV fluid resuscitation. He had been told to hold his Lasix for 10 days prior to surgery however was not having any significant lower extremity edema or worsening shortness breath. Patient is very limited in terms of his activities secondary to orthopedic issues and does not walk more than a block. After surgery patient had troubles weaning from a respiratory standpoint and also had A. fib with RVR with heart rates in the 100 to 1:30 range. He was given IV Cardizem 10 with a drip at 5 and heart rates in the 90s to 100s. Currently he denies any chest pain or pressure. He remains on BiPAP however this is attempting to be weaned today. Anticoagulation is still on hold per orthopedic surgery. Chest x-ray showing cardiomegaly with pulmonary vascular congestion. He did receive IV Lasix yesterday with approximately 1500 mL output. Creatinine remains stable with potassium of 3.6. REVIEW OF SYSTEMS At the time of my exam: CONSTITUTIONAL: Denies fever or chills. CARDIOVASCULAR: Denies chest pain, +shortness of breath, +orthopnea, no PND or palpitations. RESPIRATORY: Denies cough. GASTROINTESTINAL: Denies abdominal pain, diarrhea, constipation, nausea or vomiting. MUSCULOSKELETAL: Denies myalgias. NEUROLOGIC: Denies numbness, tingling or weakness. ENDOCRINE: Denies fatigue, weight change, polydipsia or polyurina. GENITOURINARY: Denies burning, hematuria or urgency with micturation. HEMATOLOGIC: Denies history of anemia or bleeding. PHYSICAL EXAMINATION Vital signs reviewed. CONSTITUTIONAL: No apparent distress. HEENT: Head is normocephalic. Pupils are equal, round. Sclerae anicteric. Mucous membranes of the mouth are moist. No JVD. No carotid bruit. CHEST EXAMINATION: Lungs are clear to auscultation. No chest wall tenderness is noted on palpation or with deep breathing. HEART EXAMINATION: Irregular rate and rhythm. S1, S2 heard. No murmurs, gallops or rub. ABDOMEN: Soft, nontender. Positive bowel sounds. EXTREMITIES: 2+ peripheral pulses, no lower extremity edema and no calf tenderness. NEUROLOGIC EXAMINATION: Patient is awake, alert and oriented x3. ASSESSMENT Acute on chronic diastolic heart failure Acute on chronic respiratory failure mainly related to heart failure as well as component of COPD Persistent atrial fibrillation with RVR Hypertension Hyperlipidemia Diabetes mellitus type 2 Status post lumbar surgery 05/19 PLAN Patient with respiratory failure likely mainly related to heart failure with IV fluids given throughout surgery and diuretics have been hold for 10 days prior to surgery. Continue IV Lasix 40 mg IV twice a day and monitor response. Add Cardizem 30 mg oral every 6 hours and weaned drip as able. No need to repeat echo with recent echo from 10/2023. If it improves from a respiratory standpoint likely will be able to be transferred out of ICU today. Past Medical History Past Medical History: Atrial Fibrillation, Heart Failure, COPD, Diabetes Mellitus, GERD/Reflux, Hypertension, Musculoskeletal Disorder, Sleep Apnea/CPAP/BIPAP Additional Past Medical History / Comment(s): DDD, spinal spondylosis, RT ARM numbness down armto fingers, bilateral knees occasionally buckle/wears right knee brace at times, chronic pain. NO CPAP USED History of Any Multi-Drug Resistant Organisms: MRSA Date of last positivie culture/infection: 1999 MDRO Source:: face Past Surgical History: Appendectomy, Cholecystectomy, Orthopedic Surgery Additional Past Surgical History / Comment(s): Cervical fusion/cage with bone from hip, back surgery d/t congenital defect,. 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 Past Anesthesia/Blood Transfusion Reactions: Previous Problems w/ Anesthesia Additional Past Anesthesia/Blood Transfusion Reaction / Comment(s): "Combative when coming out anesthesia." Pt has never had a blood transfusion. Smoking Status: Former smoker - Past Family History Mother Family Medical History: Deep Vein Thrombosis (DVT) Sister(s) Family Medical History: Cancer Additional Family Medical History / Comment(s): Colon cancer X2 sisters. Father Family Medical History: Myocardial Infarction ([place]) Additional Family Medical History / Comment(s): at 43 yrs of [place] Medications and Allergies Home Medications Medication Instructions Recorded Confirmed Type PARoxetine HCL [Paxil] 40 mg PO HS 12/21/19 05/18/24 History buPROPion HCL [buPROPion HCL SR] 150 mg PO BID 12/21/19 05/18/24 History metFORMIN HCL [Glucophage] 500 mg PO BID 12/21/19 05/18/24 History Gabapentin 800 mg PO QID 11/06/22 05/18/24 History Atorvastatin [Lipitor] 40 mg PO HS 03/01/23 05/18/24 History Budesonide [Pulmicort] 1 mg INHALATION RT-BID 11/18/23 05/18/24 History Budesonide/Formoterol Fumarate 2 puff INHALATION RT-BID 11/18/23 05/18/24 History [Symbicort 160-4.5 Mcg Inhaler] HYDROcodone/APAP 10-325MG [Rentz 1 tab PO QID 11/18/23 05/18/24 History 10-325] Ipratropium Nebulized [Atrovent 0.5 mg INHALATION RT-QID 11/18/23 05/19/24 History Nebulized 0.2 MG/ML] Montelukast [Singulair] 10 mg PO HS 11/18/23 05/18/24 History Omeprazole [PriLOSEC] 40 mg PO DAILY 11/18/23 05/18/24 History Dapagliflozin Propanediol [Farxiga] 10 mg PO DAILY #30 tab 11/20/23 05/19/24 Rx Furosemide [Lasix] 40 mg PO DAILY #30 tab 11/20/23 05/18/24 Rx Rivaroxaban [Xarelto] 20 mg PO W/SUPPER #30 tab 11/20/23 05/18/24 Rx Doxycycline [Vibramycin] 100 mg PO BID 05/18/24 05/18/24 History Allergies Allergy/AdvReac Type Severity Reaction Status Date / Time No Known Allergies Allergy Verified 05/19/24 08:41 Physical Exam Vitals: Vital Signs Temp Pulse Pulse Resp BP BP BP 05/20/24 08:08 116 H 05/20/24 08:00 100.3 F H 87 16 121/68 05/20/24 07:52 90 05/20/24 07:51 05/20/24 07:49 05/20/24 07:00 103 H 22 124/85 05/20/24 06:00 103 H 23 05/20/24 05:00 93 22 138/77 05/20/24 04:00 98.5 F 103 H 22 05/20/24 03:24 05/20/24 03:00 120 H 19 115/69 05/20/24 02:00 94 18 134/70 05/20/24 01:30 99 18 05/20/24 01:00 95 10 L 05/20/24 00:00 106 H 108 H 19 05/19/24 23:30 96 18 05/19/24 23:23 05/19/24 23:00 100 9 L 05/19/24 22:30 126 H 18 05/19/24 22:00 116 H 19 05/19/24 21:39 05/19/24 21:30 141 H 14 05/19/24 21:21 05/19/24 21:00 98.0 F 138 H 17 135/93 05/19/24 20:15 117 H 20 129/68 133/59 05/19/24 20:00 138 H 22 123/76 134/70 05/19/24 19:30 113 H 20 129/73 134/69 05/19/24 19:15 134 H 22 137/89 144/73 05/19/24 19:00 139 H 22 132/64 139/71 05/19/24 18:45 113 H 26 H 144/72 153/80 05/19/24 18:30 126 H 24 139/86 148/73 05/19/24 18:15 118 H 26 H 143/80 121/69 05/19/24 17:44 126 H 28 H 164/68 05/19/24 17:29 97.5 F L 144 H 18 145/74 05/19/24 09:54 86 16 155/88 05/19/24 08:57 97.8 F 75 16 181/92 Pulse Ox FiO2 05/20/24 08:08 05/20/24 08:00 95 40 05/20/24 07:52 05/20/24 07:51 95 40 05/20/24 07:49 35 05/20/24 07:00 95 05/20/24 06:00 95 05/20/24 05:00 95 05/20/24 04:00 95 40 05/20/24 03:24 35 05/20/24 03:00 94 L 05/20/24 02:00 95 40 05/20/24 01:30 96 06/26/24 01:00 97 05/20/24 00:00 93 L 40 05/19/24 23:30 93 L 05/19/24 23:23 40 05/19/24 23:00 97 05/19/24 22:30 93 L 05/19/24 22:00 94 L 40 05/19/24 21:39 40 05/19/24 21:30 96 05/19/24 21:21 40 05/19/24 21:00 94 L 05/19/24 20:15 95 50 05/19/24 20:00 95 50 05/19/24 19:30 95 50 05/19/24 19:15 86 L 05/19/24 19:00 91 L 05/19/24 18:45 90 L 05/19/24 18:30 87 L 05/19/24 18:15 91 L 05/19/24 17:44 91 L 05/19/24 17:29 93 L 05/19/24 09:54 98 05/19/24 08:57 95 Intake and Output 05/19/24 05/20/24 05/20/24 22:59 06:59 14:59 Intake Total 775 1200 25 Output Total 1575 2115 40 Balance -800 -915 -15 Intake: IV 600 Intake, IV Titration 75 700 25 Amount Diltiazem 125 mg In 5 40 5 Sodium Chloride 0.9% 100 ml @ 5 MG/HR 5 mls/hr IV .Q24H [facility] Rx#:[id number] Lactated Ringers 1,000 ml 20 160 20 @ 20 mls/hr IV .Q24H [facility] Rx#:[id number] Vancomycin 1,750 mg In 500 Sodium Chloride 0.9% 500 ml 500 ml @ 167 mls/hr IVPB ONCE ONE Rx#: [id number] ceFAZolin 2 gm In Sodium 50 Chloride 0.9% 50 ml @ 100 mls/hr IVPB Q8H [facility] Rx#: [id number] Oral 100 500 Output: Drainage 150 Lower Back 150 Urine 825 1965 40 Estimated Blood Loss 750 Other: Voiding Method Indwelling Catheter # Bowel Movements 0 Weight 118.2 kg 118.2 kg ABP, PAP, CO, CI - Last 8 Hours Arterial Blood Pressure 100/78 Arterial Blood Pressure 116/63 Arterial Blood Pressure 128/75 Arterial Blood Pressure 124/72 Arterial Blood Pressure 121/71 Arterial Blood Pressure 130/76 Arterial Blood Pressure 113/66 Arterial Blood Pressure 103/67 Arterial Blood Pressure 125/79 Results 05/20/24 03:20 05/20/24 03:20 CBC 05/20/24 Range/Units 03:20 WBC 16.6 H (3.8-10.6) k/uL RBC 4.74 (4.30-5.90) m/uL Hgb 12.9 L (13.0-17.5) gm/dL Hct 42.6 (39.0-53.0) % Plt Count 272 (150-450) k/uL Comprehensive Metabolic Panel 05/20/24 Range/Units 03:20 Sodium 139 (137-145) mmol/L Potassium 3.6 (3.5-5.1) mmol/L Chloride 108 H (98-107) mmol/L Carbon Dioxide 25 (22-30) mmol/L BUN 15 (9-20) mg/dL Creatinine 0.62 L (0.66-1.25) mg/dL Glucose 148 H (74-99) mg/dL Calcium 8.6 (8.4-10.2) mg/dL Current Medications Generic Name Dose Route Start Last Admin Trade Name Freq PRN Reason Stop Dose Admin Hydrocodone Bitart/Acetaminophen 1 each 05/19/24 17:30 05/20/24 03:06 Hydrocodone/Apap 10-325mg 1 Each Tab PO 06/18/24 11:58 1 each Q4HR PRN Administration Pain Scale 7 to 10 Albuterol/Ipratropium 3 ml 05/20/24 08:00 05/20/24 07:52 Ipratropium-Albuterol 3 Ml Neb INHALATION 3 ml RT-QID [facility] Administration Atorvastatin Calcium 40 mg 05/20/24 21:00 Atorvastatin 40 Mg Tab PO HS [facility] Budesonide 1 mg 05/20/24 08:00 05/20/24 07:52 Budesonide 1 Mg/2 Ml Nebu INHALATION 1 mg RT-BID [facility] Administration Bupropion HCl 150 mg 05/20/24 09:00 05/20/24 07:50 Bupropion Sr 150 Mg Tablet.Er PO 150 mg BID [facility]AN Administration Cyclobenzaprine HCl 10 mg 05/19/24 11:57 05/20/24 07:50 Cyclobenzaprine 10 Mg Tab PO 06/18/24 11:58 10 mg TID PRN Administration Muscle Spasm Formoterol Fumarate 20 mcg 05/20/24 08:00 05/20/24 07:52 Formoterol Fumarate 20 Mcg/2 Ml Nebu INHALATION 20 mcg RT-BID [facility]AN Administration Furosemide 40 mg 05/20/24 01:30 05/20/24 07:44 Furosemide 10 Mg/Ml 4 Ml Vial IV Not Given DAILY [facility] Gabapentin 800 mg 05/19/24 13:00 05/20/24 07:50 Gabapentin 400 Mg Cap PO 06/18/24 13:01 800 mg QID [facility] Administration Heparin Sodium (Porcine) 5,000 unit 05/20/24 09:00 05/20/24 07:50 Heparin Sodium,Porcine 5,000 Unit/Ml 1 Ml Vial SQ 06/19/24 09:01 5,000 unit Q12HR [facility] Administration Hydromorphone HCl 0.5 mg 05/19/24 11:57 Hydromorphone 0.5 Mg/0.5 Ml Syringe IVP 06/18/24 11:58 Q3HR PRN Pain Scale 4 - 6 Hydromorphone HCl 1 mg 05/19/24 11:57 05/20/24 03:49 Hydromorphone 1 Mg/Ml 1 Ml Syringe IVP 06/18/24 11:58 1 mg Q3HR PRN Administration Pain Scale of 7 - 10 Lactated Ringer's 1,000 mls @ 20 mls/hr 05/19/24 08:26 05/20/24 08:07 Lactated Ringers IV 06/18/24 08:27 20 mls/hr .Q24H [facility] Administration Diltiazem HCl 125 mg/ Sodium 125 mls @ 5 mls/hr 05/19/24 21:30 05/19/24 21:52 Chloride IV 5 mg/hr .Q24H [facility] 5 mls/hr Administration 5 MG/HR Vancomycin HCl 1,750 mg/ 500 mls @ 167 mls/hr 05/20/24 08:00 Sodium Chloride IVPB Q8HR [facility] Insulin Aspart 0 unit 05/20/24 07:30 05/20/24 06:26 Insulin Aspart (Novolog) 100 Unit/Ml Vial SQ 2 unit ACHS FROILAN Administration Protocol Lidocaine HCl 0.1 ml 05/19/24 08:26 Lidocaine 1% (10mg/Ml) For Iv Start INTRADERMA 06/18/24 08:27 PER PROTOCOL PRN IV Start Magnesium Hydroxide 2,400 mg 05/19/24 11:57 Magnesium Hydroxide 2,400 Mg/30 Ml Cup PO 06/18/24 11:58 DAILY PRN Constipation Miscellaneous Information 1 each 05/20/24 04:39 Potassium Replacement Protocol [address] [facility] MISCELLANE DAILY PRN Per Protocol Protocol Miscellaneous Information 0 each 05/20/24 23:00 Vancomycin Trough Due 1 Each Misc MISCELLANE 05/20/24 23:01 DIRECTED ONE Montelukast Sodium 10 mg 05/20/24 21:00 Montelukast 10 Mg Tab PO HS [facility] Oxycodone/Acetaminophen 1 each 05/19/24 11:59 05/20/24 05:46 Oxycodone-Apap 7.5-325mg 1 Each Tab PO 06/18/24 12:00 1 each Q6HR PRN Administration Pain Scale 7 to 10 Pantoprazole Sodium 40 mg 05/20/24 09:00 05/20/24 07:50 Pantoprazole 40 Mg Tablet PO 40 mg DAILY [facility] Administration Paroxetine HCl 40 mg 05/20/24 21:00 Paroxetine 20 Mg Tab PO HS [facility] Polyethylene Glycol 17 gm 05/20/24 09:00 Polyethylene Glycol 3350 17 Gm Powd.Pack PO 06/19/24 09:01 DAILY [facility] Senna/Docusate Sodium 2 each 05/20/24 09:00 05/20/24 07:50 Sennosides-Docusate Sodium 1 Each Tab PO 06/19/24 09:01 2 each DAILY [facility]OILAN Administration Intake and Output 05/19/24 05/20/24 05/20/24 22:59 06:59 14:59 Intake Total 775 1200 25 Output Total 1575 2115 40 Balance -800 -915 -15 Intake: IV 600 Intake, IV Titration 75 700 25 Amount Diltiazem 125 mg In 5 40 5 Sodium Chloride 0.9% 100 ml @ 5 MG/HR 5 mls/hr IV .Q24H [facility] Rx#:[id number] Lactated Ringers 1,000 ml 20 160 20 @ 20 mls/hr IV .Q24H [facility] Rx#:[id number] Vancomycin 1,750 mg In 500 Sodium Chloride 0.9% 500 ml 500 ml @ 167 mls/hr IVPB ONCE ONE Rx#: [id number] ceFAZolin 2 gm In Sodium 50 Chloride 0.9% 50 ml @ 100 mls/hr IVPB Q8H [facility] Rx#: [id number] Oral 100 500 Output: Drainage 150 Lower Back 150 Urine 825 1965 40 Estimated Blood Loss 750 Other: Voiding Method Indwelling Catheter # Bowel Movements 0 Weight 118.2 kg 118.2 kg 05/20/24 03:20 05/20/24 03:20
[2024-05-20] MEDS: VANCOMYCIN 1,750 MG in SODIUM CHLORIDE 0.9% 500 ML 500 ML IVPB SCH ×2 (08:16→18:36)
[2024-05-20] MEDS: DILTIAZEM ORAL 30 MG TAB PO SCH (08:25)
--- NOTE | 2024-05-20 09:26 | P.PN ---
Subjective Progress Note Date: 05/20/24 Principal diagnosis: 1. L2-S1 spondylosis with stenosis s/o previous L4-5 laminectomy with Adjacent segment disease 2. Bilateral lower extremity radiculopathy 3. Bilateral lower extremity weakness 4. Neurogenic claudication Patient seen and examined this morning in the ICU. He was admitted to the ICU from PACU due to hypoxia and irregular heart rate. Patient does have history of Afib. He is resting in bed. Patient is currently on BiPap at 40 FiO2 saturation 95%, BP 128/75 HR irregular 103. Patient is somewhat lethargic this morning. He does state he is in pain. Informed patient to use his call light to request medication. Hemovac is from lumbar incision with output of 150ml overnight. Patient is able to wiggle his toes and lift his feet off of the bed. As he becomes more alert and medically stable, please encourage increase of activity and to work with PT. Objective - Vital Signs Vital signs: Vital Signs Temp 100.3 F H 05/20/24 08:00 Pulse 93 05/20/24 08:15 Resp 16 05/20/24 08:00 BP 121/68 05/20/24 08:00 Pulse Ox 92 L 05/20/24 08:49 FiO2 40 05/20/24 08:00 Intake & Output 05/19/24 05/20/24 05/20/24 18:59 06:59 18:59 Intake Total 2652 1375 1145 Output Total 1200 2490 145 Balance 1452 -1115 1000 Weight 114.1 kg 118.2 kg Intake: IV 2652 520 Invasive Line 1 10 Invasive Line 2 10 Vancomycin 1,750 mg In 500 Sodium Chloride 0.9% 500 ml 500 ml @ 167 mls/hr IVPB ONCE ONE Rx#: [id number] Intake, IV Titration 775 25 Amount Diltiazem 125 mg In 45 5 Sodium Chloride 0.9% 100 ml @ 5 MG/HR 5 mls/hr IV .Q24H [facility] Rx#:[id number] Lactated Ringers 1,000 ml 180 20 @ 20 mls/hr IV .Q24H [facility] Rx#:[id number] Vancomycin 1,750 mg In 500 Sodium Chloride 0.9% 500 ml 500 ml @ 167 mls/hr IVPB ONCE ONE Rx#: [id number] ceFAZolin 2 gm In Sodium 50 Chloride 0.9% 50 ml @ 100 mls/hr IVPB Q8H [facility] Rx#: [id number] Oral 600 600 Output: Drainage 150 60 Lower Back 150 60 Urine 450 2340 85 Estimated Blood Loss 750 Other: Voiding Method Indwelling Catheter Indwelling Catheter # Bowel Movements 0 ABP, PAP, CO, CI - Last Documented Arterial Blood Pressure 100/78 - Exam Physical Examination General: The patient is awake and alert, in no acute distress Skin: Skin is warm and dry with no obvious rashes or lesions. Surgical incision to the lumbar spine, Hemovac is present with 150 mL output overnight. Eye: Pupils are equal, round and reactive to light, extra-ocular movements are intact; there is normal conjunctiva bilaterally. Neck: The neck is supple, there is no tenderness and ROM intact. Cardiovascular: There is a regular rate and rhythm. No murmur, rub or gallop is appreciated. Respiratory: Lungs are clear to auscultation, respirations are non-labored, breath sounds are equal. Gastrointestinal: Soft, non-distended, non-tender abdomen. Back: There is no tenderness to palpation in the midline, paralumbar, parathoracic or buttocks region. There is no obvious deformity . Musculoskeletal: ROM limited secondary to pain and stiffness from surgical procedure. Muscle strength in all major muscle groups of bilateral upper extremities 5/5, bilateral lower extremities 4-/5. Neurological: CN 2-12 intact. There are no obvious motor or sensory deficits. Movement and coordination equal and intact. Sensory exam to light touch intact C5-T1 and intact from L2-S1. Reflexes 2/4 in bilateral upper and lower extremities. Negative Hoffmans, babinski, and clonus signs. Psychiatric: Cooperative, appropriate mood & affect, normal judgment. - Labs CBC & Chem 7: 05/20/24 03:20 05/20/24 03:20 Labs: Abnormal Lab Results - Last 24 Hours (Table) 05/19/24 05/19/24 05/19/24 Range/Units 09:11 13:24 16:42 WBC (3.8-10.6) k/uL Hgb (13.0-17.5) gm/dL MCHC (31.0-37.0) g/dL RDW (11.5-15.5) % Neutrophils # (1.3-7.7) k/uL Monocytes # (0-1.0) k/uL ABG pH 7.32 L 7.29 L (7.35-7.45) ABG pCO2 47 H 50 H (35-45) mmHg ABG pO2 167 H 156 H (83-108) mmHg ABG O2 Saturation 97.9 H 98.3 H (94-97) % ABG Glucose 158 H 184 H (75-99) mg/dL ABG Lactic Acid 1.7 H (0.5-1.6) mmol/L Hemoglobin 12.9 L (13.0-17.5) gm/dL Chloride (98-107) mmol/L Creatinine (0.66-1.25) mg/dL Glucose (74-99) mg/dL POC Glucose (mg/dL) 130 H (70-110) mg/dL Arterial Blood Glucose 158 H 184 H (75-99) mg/dL 05/19/24 05/20/24 05/20/24 Range/Units 20:05 03:20 03:20 WBC 16.6 H (3.8-10.6) k/uL Hgb 12.9 L (13.0-17.5) gm/dL MCHC 30.3 L (31.0-37.0) g/dL RDW 15.6 H (11.5-15.5) % Neutrophils # 14.2 H (1.3-7.7) k/uL Monocytes # 1.1 H (0-1.0) k/uL ABG pH (7.35-7.45) ABG pCO2 (35-45) mmHg ABG pO2 (83-108) mmHg ABG O2 Saturation (94-97) % ABG Glucose (75-99) mg/dL ABG Lactic Acid (0.5-1.6) mmol/L Hemoglobin (13.0-17.5) gm/dL Chloride 108 H (98-107) mmol/L Creatinine 0.62 L (0.66-1.25) mg/dL Glucose 148 H (74-99) mg/dL POC Glucose (mg/dL) 169 H (70-110) mg/dL Arterial Blood Glucose (75-99) mg/dL 05/20/24 Range/Units 05:20 WBC (3.8-10.6) k/uL Hgb (13.0-17.5) gm/dL MCHC (31.0-37.0) g/dL RDW (11.5-15.5) % Neutrophils # (1.3-7.7) k/uL Monocytes # (0-1.0) k/uL ABG pH (7.35-7.45) ABG pCO2 (35-45) mmHg ABG pO2 (83-108) mmHg ABG O2 Saturation (94-97) % ABG Glucose (75-99) mg/dL ABG Lactic Acid (0.5-1.6) mmol/L Hemoglobin (13.0-17.5) gm/dL Chloride (98-107) mmol/L Creatinine (0.66-1.25) mg/dL Glucose (74-99) mg/dL POC Glucose (mg/dL) 164 H (70-110) mg/dL Arterial Blood Glucose (75-99) mg/dL Assessment and Plan Assessment: Postop day 1: Revision L2-S1 decompression and fusion 1. L2-S1 spondylosis with stenosis s/o previous L4-5 laminectomy with Adjacent segment disease 2. Bilateral lower extremity radiculopathy 3. Bilateral lower extremity weakness 4. Neurogenic claudication Plan: -Appreciate search engine optimization consultant and team management. -Activity: When patient is more alert and medically stable encourage to ambulate QID, OOB all meals, up and about, limit lifting bending twisting to less than 5 lbs. Use walker or cane if needed for stability. -Daily PT/OT, increase ambulation strength and balance. -Brace when up and about, not needed in bed or chair -Pain control: Adequate at this time -Meds: reviewed -GI ppx: senna, Miralax -DC mari when up and about, bedside commode if needed -DVT PPX: OK to restart Heparin tonight -Hygiene: Shower today. Maintain dressing clean and dry. Meticulous cleaning after BMs away from the incision site -Drains: Maintain for now. Continue to monitor and record output q shift. -Encourage IS 10x/hr -Dispo: Clinically pending *I reviewed and discussed this case with my attending Dr. Jeffrey, whom has reviewed this chart and films and is in agreement with assessment and plan of care as outlined above. I have personally seen and examined the patient, performed the documentation and the assessment and plan as written. Number of minutes spent on the visit: 20m.
--- NOTE | 2024-05-20 09:36 | CT ---
EXAMINATION TYPE: CT lumbar spine wo con DATE OF EXAM: 05/20/2024 COMPARISON: 11/15/2023 HISTORY: S/P REVISION L2-S1 DECOMPRESSION FUSION. CT DLP: 1973.[address] of the lumbar spine was performed. Bone and soft tissue window settings are submitted as well as coronal and sagittal reconstructions. L1-L2: Mild to moderate degenerative disc space narrowing. No significant disc bulge or herniation. N o central stenosis. Spinal canal appears congenitally diminutive in size. Ventral spondylosis. L2-L3: Postoperative changes of the decompressive laminectomy. Intervertebral spacer is in place. Ped icular screws noted. Postoperative alignment is near-anatomic. Streak artifact limits evaluation. L3-L4: Postoperative changes of the decompressive laminectomy. Intervertebral spacer is in place. Ped icular screws noted. Postoperative alignment is near-anatomic. Streak artifact limits evaluation. L4-L5: Postoperative changes of the decompressive laminectomy. Intervertebral spacer is in place. Ped icular screws noted. Postoperative alignment is near-anatomic. Streak artifact limits evaluation. L5-S1: Postoperative changes of the decompressive laminectomy. Intervertebral spacer is in place. Ped icular screws noted. Postoperative alignment is near-anatomic. Streak artifact limits evaluation. Operative soft tissue changes appreciated. No paraspinal masses are identified. Lumbar segments are free if fracture. IMPRESSION: 1. Postoperative changes as noted above.
[2024-05-20] MEDS: polyethylene glycoL 3350 17 GM POWD.PACK PO SCH (09:57)
[2024-05-20 11:19] LABS: Glucose,Whole Blood 158 mg/dL (70-110)
[2024-05-20 16:42] LABS: Glucose,Whole Blood 181 mg/dL (70-110)
[2024-05-20] MEDS: NICOTINE 7MG/24HR PATCH TRANSDERM SCH (18:10)
[2024-05-20 20:15] LABS: Glucose,Whole Blood 161 mg/dL (70-110)
[2024-05-20] MEDS: PARoxetine 20 MG TAB PO SCH (20:41)
[2024-05-20] MEDS: MONTELUKAST 10 MG TAB PO SCH (20:41)
[2024-05-20] MEDS: ATORVASTATIN 40 MG TAB PO SCH (20:42)
[2024-05-20] MEDS ORDERED: HEPARIN SODIUM,PORCINE 5,000 UNIT/ML 1 ML VIAL SQ SCH (21:00)
[2024-05-21 06:13] LABS: Glucose,Whole Blood 162 mg/dL (70-110)
[2024-05-21] MEDS: HYDROmorphone 0.5 MG/0.5 ML SYRINGE IVP PRN (06:42)
[2024-05-21] MEDS: VANCOMYCIN TROUGH DUE 1 EACH MISC MISCELLANE ONE (10:18)
[2024-05-21 10:19] LABS: African American GFR (CKD) >90 (>60 ml/min/1.73 sqM); Non-African American GFR(CKD) >90 (>60 ml/min/1.73 sqM)
[2024-05-21 11:35] LABS: Glucose,Whole Blood 199 mg/dL (70-110)
--- NOTE | 2024-05-21 12:54 | P.PN ---
Subjective Progress Note Date: 05/21/24 Principal diagnosis: Back pain. Patient is a 58-year-old white male with past medical history significant for obstructive sleep apnea with home CPAP, COPD, ex tobacco smoker, marijuana smoker, atrial fibrillation with previous cardioversion, diabetes mellitus, hypertension, heart failure, and prior cervical level spine surgery. His primary care provider is Dr. Deuce Brito. Patient has been having issues with lower back pain with radiculopathy like symptoms. He was found to have severe L2-S1 spondylosis with stenosis. Patient was brought into the hospital yesterday for an elective L2-S1 posteriorlateral and interbody fusion and cage placement. Patient was extubated postoperatively and transferred to the intensive care unit. Postoperatively, he was noted to be lethargic and confused. Blood gases were drawn which showed a PaO2 of 156, pCO2 of 50, pH of 7.29. Patient was placed on BiPAP per my supervising physician recommendation. Current BiPAP settings are 12/5 with an FiO2 40%. Patient is generating tidal volumes between 400 and 500. Respiratory rate is in the mid 20s. He is in no respiratory distress. Chest x-ray postoperatively shows cardiomegaly with slight increased interstitial and perihilar densities. No consolidations or pleural effusions. Concerning for mild CHF exacerbation. Patient is known to have chronic diastolic heart failure. Most recent available echocardiogram from October, demonstrated preserved left ventricular ejection fraction of 50 to 55% as well as mild mitral regurgitation. He takes Lasix daily while at [facility]. Also, has history of paroxysmal atrial fibrillation and is normally anticoagulated on Eliquis, this was stopped preoperatively for the procedure. He did go into atrial fibrillation with rapid ventricular response postoperatively. Was started on a Cardizem infusion which is currently infusing at 5 mg/h. Rate is better controlled in the low 100s. Blood pressure is normotensive. Patient is currently lying supine in bed. He is on BiPAP with above-mentioned settings. He is alert and answers my questions appropriately. He is complaint at the moment is his postsurgical back pain. He is receiving a combination of as needed Dilaudid and [place]'s. Lower extremity strength is intact and he denies any weakness or numbness. He will be monitored in the intensive care unit. Progress note dated May 21, 2024. The patient is seen today in room 364. The patient is currently on room air. Is not receiving any IV fluids. The patient did use BiPAP last night, with settings of 12/5, and 40%. He used it during the evening, when he was sleeping. Currently, he has no distress. He denies any shortness of breath, cough, wheezing, chest tightness, or phlegm production. He also denies any chest pain or pressure. His primary care physician is Dr. Deuce Brito. Current labs today only include a creatinine of 0.64, glucose of 199. Chest x-ray from yesterday shows evidence of cardiomegaly, pulmonary vascular congestion. Objective - Vital Signs Vital signs: Vital Signs Temp 98.3 F 05/21/24 12:18 Pulse 100 05/21/24 12:18 Resp 18 05/21/24 12:18 BP 102/75 05/21/24 12:18 Pulse Ox 95 05/21/24 12:18 FiO2 40 05/21/24 01:08 Intake & Output 05/20/24 05/21/24 05/21/24 18:59 06:59 18:59 Intake Total 2725.667 520 130 Output Total 1895 1125 600 Balance 830.667 -605 -470 Weight 115.6 kg Intake: IV 550 20 10 Invasive Line 1 20 Invasive Line 2 30 20 10 Vancomycin 1,750 mg In 500 Sodium Chloride 0.9% 500 ml 500 ml @ 167 mls/hr IVPB ONCE ONE Rx#: [id number] Intake, IV Titration 175.667 Amount Diltiazem 125 mg In 95.667 Sodium Chloride 0.9% 100 ml @ 5 MG/HR 5 mls/hr IV .Q24H [facility] Rx#:[id number] Lactated Ringers 1,000 ml 80 @ 20 mls/hr IV .Q24H [facility] Rx#:[id number] Oral 2000 500 120 Output: Drainage 160 175 Lower Back 160 175 Urine 1735 950 600 Other: Voiding Method Indwelling Catheter Urinal Toilet Urinal # Voids 1 # Bowel Movements 0 ABP, PAP, CO, CI - Last Documented Arterial Blood Pressure 115/77 - Exam No acute distress, oriented 3. Currently on room air. HEENT examination is grossly unremarkable. Mucous membranes are moist. No oral lesions. Neck supple. Full range of motion. No adenopathy thyromegaly or neck vein distention. Cardiovascular examination reveals regular rhythm rate. S1-S2 normal. No S3 or S4. No discernible murmur noted. Heart rate 100 bpm. Lungs reveal mostly clear breath sounds. Minimal bilateral rhonchi. No wheezes. No crackles. Breath sounds equal bilaterally. Room air saturation 95%. Abdomen soft bowel sounds are heard. No masses or tenderness. Extremities are intact. No cyanosis clubbing or edema. Skin is without rash or lesion. Neurologic examination is brief but nonfocal. - Labs CBC & Chem 7: 05/20/24 03:20 05/21/24 09:34 Labs: Abnormal Lab Results - Last 24 Hours (Table) 05/20/24 05/20/24 05/21/24 Range/Units 16:38 20:13 06:12 Creatinine (0.66-1.25) mg/dL POC Glucose (mg/dL) 181 H 161 H 162 H (70-110) mg/dL 05/21/24 05/21/24 Range/Units 09:34 11:33 Creatinine 0.64 L (0.66-1.25) mg/dL POC Glucose (mg/dL) 199 H (70-110) mg/dL Assessment and Plan Assessment: Severe L2-S1 spondylosis and stenosis status postoperative day #2 following an L2-S1 posterior lateral and interbody fusion and cage placement. Acute hypoxemic and hypercapnic respiratory failure, currently on BiPAP, likely secondary to a combination of medication effect and possible a mild exacerbation of diastolic congestive heart failure. Hypercapnic encephalopathy, improved. Atrial fibrillation with rapid ventricular response. History of obstructive sleep apnea. Chronic obstructive pulmonary disease. Former tobacco smoker. Marijuana smoker. History of hypertension. History of diabetes mellitus. History of heart failure with preserved ejection fraction. History of prior C2-T2 decompression and fusion. Plan: Plan dated May 21, 2024. The patient is doing well. He spent the evening, in the intensive care unit, and then was discharged out of the ICU. The patient is currently stable. He did use BiPAP overnight, with settings of 12/5 and 40%. Currently he is on room air. Is not receiving any IV fluids. Labs, x-rays, medications are reviewed. Prognosis is guarded. We will continue to follow make recommendations along the way. Time with Patient: Less than 30
--- NOTE | 2024-05-21 13:04 | P.PN ---
Subjective Progress Note Date: 05/21/24 Principal diagnosis: Status post [id number] posterior lateral decompression and fusion, multiple medical comorbidities Patient was evaluated today at bedside, he was transferred out of the ICU and is on a cardiac stepdown unit. Patient was resting in his hospital chair, he appea red to be in no acute distress. He has been ambulating well to and from the bathroom. He continues to urinate with no issues. He has been utilizing the BiPAP at night, he also does have a CPAP machine present. Currently being followed by other medical specialties. Patient states that the pain is controlled with his current medications, we did up his pain medication to Percocet 7.5 mg / 325 mg, he is also been utilizing the 1 mg of IV Dilaudid as needed. Currently has no headaches, lightheadedness, chest pain, shortness of breath Objective - Vital Signs Vital signs: Vital Signs Temp 98.3 F 05/21/24 12:18 Pulse 100 05/21/24 12:18 Resp 18 05/21/24 12:18 BP 102/75 05/21/24 12:18 Pulse Ox 95 05/21/24 12:18 FiO2 40 05/21/24 01:08 Intake & Output 05/20/24 05/21/24 05/21/24 18:59 06:59 18:59 Intake Total 2725.667 520 130 Output Total 1895 1125 600 Balance 830.667 -605 -470 Weight 115.6 kg Intake: IV 550 20 10 Invasive Line 1 20 Invasive Line 2 30 20 10 Vancomycin 1,750 mg In 500 Sodium Chloride 0.9% 500 ml 500 ml @ 167 mls/hr IVPB ONCE ONE Rx#: [id number] Intake, IV Titration 175.667 Amount Diltiazem 125 mg In 95.667 Sodium Chloride 0.9% 100 ml @ 5 MG/HR 5 mls/hr IV .Q24H [facility] Rx#:[id number] Lactated Ringers 1,000 ml 80 @ 20 mls/hr IV .Q24H [facility] Rx#:[id number] Oral 2000 500 120 Output: Drainage 160 175 Lower Back 160 175 Urine 1735 950 600 Other: Voiding Method Indwelling Catheter Urinal Toilet Urinal # Voids 1 # Bowel Movements 0 ABP, PAP, CO, CI - Last Documented Arterial Blood Pressure 115/77 - Exam Gen: AOx3, NAD VSS stable at this time Integument: Postoperative dressing was removed today at bedside. Igor are all in good position and condition. There is no active drainage appreciated. Palpation: Tenderness with palpation to the lower thoracic and lumbar spine ROM: Full range of motion in all major muscle groups of the bilateral upper and lower extremities Sensory Exam: [Senory exam to light touch is intact C5-T1] [Senosry exam to light touch is intact L2-S1] Motor: 5/5 strength appreciated in the bilateral upper extremities with shoulder eleva tion, shoulder abduction, elbow extension, elbow flexion, wrist extension, wrist flexion, form maker plaster 4/5 strength appreciated in the bilateral lower extremities with hip flexion, knee extension, knee flexion, 5/5 strength appreciated the bilateral lower extremities with plantarflexion, dorsiflexion, EHL, FHL Reflexes: [2/4 in all UE and LE] [Hoffmans] [Babinski] [Clonus] Special Test: [] - Labs CBC & Chem 7: 05/20/24 03:20 05/21/24 09:34 Labs: Abnormal Lab Results - Last 24 Hours (Table) 05/20/24 05/20/24 05/21/24 Range/Units 16:38 20:13 06:12 Creatinine (0.66-1.25) mg/dL POC Glucose (mg/dL) 181 H 161 H 162 H (70-110) mg/dL 05/21/24 05/21/24 Range/Units 09:34 11:33 Creatinine 0.64 L (0.66-1.25) mg/dL POC Glucose (mg/dL) 199 H (70-110) mg/dL
--- NOTE | 2024-05-21 14:52 | P.PN ---
Subjective HISTORY OF PRESENTING ILLNESS This is a pleasant 58-year-old with past medical history significant for COPD, chronic diastolic heart failure, tobacco abuse, persistent atrial fibrillation, diabetes mellitus type 2, hypertension, hyperlipidemia. He follows in the office with Dr. Menard. Patient presented for elective lumbar surgery which was perf ormed yesterday without incident with approximately 450 mL blood loss. Patient did receive IV fluid resuscitation. He had been told to hold his Lasix for 10 days prior to surgery however was not having any significant lower extremity edema or worsening shortness breath. Patient is very limited in terms of his activities secondary to orthopedic issues and does not walk more than a block. After surgery patient had troubles weaning from a respiratory standpoint and also had A. fib with RVR with heart rates in the 100 to 1:30 range. He was given IV Cardizem 10 with a drip at 5 and heart rates in the 90s to 100s. Currently he denies any chest pain or pressure. He remains on BiPAP however t his is attempting to be weaned today. Anticoagulation is still on hold per orthopedic surgery. Chest x-ray showing cardiomegaly with pulmonary vascular congestion. He did receive IV Lasix yesterday with approximately 1500 mL output. Creatinine remains stable with potassium of 3.6. 05/21 Seen and examined. Has been diuresed and improved SOB. No chest pain or pressure. Cr stable. REVIEW OF SYSTEMS At the time of my exam: CONSTITUTIONAL: Denies fever or chills. CARDIOVASCULAR: Denies chest pain, +shortness of breath, +orthopnea, no PND or palpitations. RESPIRATORY: Denies cough. GASTROINTESTINAL: Denies abdominal pain, diarrhea, constipation, nausea or vomiting. MUSCULOSKELETAL: Denies myalgias. NEUROLOGIC: Denies numbness, tingling or weakness. ENDOCRINE: Denies fatigue, weight change, polydipsia or polyurina. GENITOURINARY: Denies burning, hematuria or urgency with micturation. HEMATOLOGIC: Denies history of anemia or bleeding. PHYSICAL EXAMINATION Vital signs reviewed. CONSTITUTIONAL: No apparent distress. HEENT: Head is normocephalic. Pupils are equal, round. Sclerae anicteric. Mucous membranes of the mouth are moist. No JVD. No carotid bruit. CHEST EXAMINATION: Lungs are clear to auscultation. No chest wall tenderness is noted on palpation or with deep breathing. HEART EXAMINATION: Irregular rate and rhythm. S1, S2 heard. No murmurs, gallops or rub. ABDOMEN: Soft, nontender. Positive bowel sounds. EXTREMITIES: 2+ peripheral pulses, no lower extremity edema and no calf tenderness. NEUROLOGIC EXAMINATION: Patient is awake, alert and oriented x3. ASSESSMENT Acute on chronic diastolic heart failure Acute on chronic respiratory failure mainly related to heart failure as well as component of COPD Persistent atrial fibrillation with RVR Hypertension Hyperlipidemia Diabetes mellitus type 2 Status post lumbar surgery 05/19 PLAN Continue IV Lasix and likely transition over to oral diuretics tomorrow. Continue with oral cardizem. Further DC planning and possibel DC from cardio standpoint tomorrow. Objective - Vital Signs Vital signs: Vital Signs Temp 98.3 F 05/21/24 12:18 Pulse 100 05/21/24 12:18 Resp 18 05/21/24 12:18 BP 102/75 05/21/24 12:18 Pulse Ox 95 05/21/24 12:18 FiO2 40 05/21/24 01:08 Intake & Output 05/20/24 05/21/24 05/21/24 18:59 06:59 18:59 Intake Total 2725.667 520 380 Output Total 1895 1125 750 Balance 830.667 -605 -370 Weight 115.6 kg Intake: IV 550 20 20 Invasive Line 1 20 Invasive Line 2 30 20 20 Vancomycin 1,750 mg In 500 Sodium Chloride 0.9% 500 ml 500 ml @ 167 mls/hr IVPB ONCE ONE Rx#: [id number] Intake, IV Titration 175.667 Amount Diltiazem 125 mg In 95.667 Sodium Chloride 0.9% 100 ml @ 5 MG/HR 5 mls/hr IV .Q24H [facility] Rx#:[id number] Lactated Ringers 1,000 ml 80 @ 20 mls/hr IV .Q24H [facility] Rx#:[id number] Oral 2000 500 360 Output: Drainage 160 175 Lower Back 160 175 Urine 1735 950 750 Other: Voiding Method Indwelling Catheter Urinal Toilet Urinal # Voids 1 # Bowel Movements 0 ABP, PAP, CO, CI - Last Documented Arterial Blood Pressure 115/77 - Labs CBC & Chem 7: 05/20/24 03:20 05/21/24 09:34 Labs: Abnormal Lab Results - Last 24 Hours (Table) 0605/20/24 05/21/24 Range/Units 16:38 20:13 06:12 Creatinine (0.66-1.25) mg/dL POC Glucose (mg/dL) 181 H 161 H 162 H (70-110) mg/dL 05/21/24 05/21/24 Range/Units 09:34 11:33 Creatinine 0.64 L (0.66-1.25) mg/dL POC Glucose (mg/dL) 199 H (70-110) mg/dL
[2024-05-21 16:20] LABS: Glucose,Whole Blood 192 mg/dL (70-110)
[2024-05-21 20:01] LABS: Glucose,Whole Blood 180 mg/dL (70-110)
--- NOTE | 2024-05-22 02:13 | PN ---
PROGRESS NOTE SUBJECTIVE: Status post lumbar stenosis surgery, he is up ambulating. He had a bandage issue with his back, was folded off due to rubbing. He had a seepage coming out of the wound, large amount of serous fluid soaking his clothes twice. Waiting for renal, neurosurgeon to come to reassess this tomorrow. We will check labs in the morning. Continues on COPD treatment, status post lumbar stenosis. His legs are much better after surgery. OBJECTIVE: CARDIOVASCULAR: S1, S2. LUNGS: Transmitted upper sounds. GI: Soft. HEMATOLOGY: Negative for Homans. PSYCH: Fair mood and effect. VITAL SIGNS: Blood pressure is 120s to 150s over 70s to 80s, pulse 81 to 110, pulse rate low 100s, temp 98.3, saturating 94 to 96 on room air. Prognosis guarded. Continue current treatment. Wound dressing. Will be reassessed by surgeon in the morning. Continue with home medications, breathing treatments, PT OT. Prognosis guarded. MMODL / IJN: [id number] /
[2024-05-22 06:06] LABS: Glucose,Whole Blood 164 mg/dL (70-110)
[2024-05-22 08:48] LABS: African American GFR (CKD) >90 (>60 ml/min/1.73 sqM); Non-African American GFR(CKD) >90 (>60 ml/min/1.73 sqM)
[2024-05-22 12:24] LABS: Glucose,Whole Blood 146 mg/dL (70-110)
--- NOTE | 2024-05-22 14:08 | P.PN ---
Subjective Progress Note Date: 05/22/24 Principal diagnosis: Back pain. Patient is a 58-year-old white male with past medical history significant for obstructive sleep apnea with home CPAP, COPD, ex tobacco smoker, marijuana smoker, atrial fibrillation with previous cardioversion, diabetes mellitus, hypertension, heart failure, and prior cervical level spine surgery. His primary care provider is Dr. Deuce Brito. Patient has been having issues with lower back pain with radiculopathy like symptoms. He was found to have severe L2-S1 spondylosis with stenosis. Patient was brought into the hospital yesterday for an elective L2-S1 posteriorlateral and interbody fusion and cage placement. Patient was extubated postoperatively and transferred to the intensive care unit. Postoperatively, he was noted to be lethargic and confused. Blood gases were drawn which showed a PaO2 of 156, pCO2 of 50, pH of 7.29. Patient was placed on BiPAP per my supervising physician recommendation. Current BiPAP settings are 12/5 with an FiO2 40%. Patient is generating tidal volumes between 400 and 500. Respiratory rate is in the mid 20s. He is in no respiratory distress. Chest x-ray postoperatively shows cardiomegaly with slight increased interstitial and perihilar densities. No consolidations or pleural effusions. Concerning for mild CHF exacerbation. Patient is known to have chronic diastolic heart failure. Most recent available echocardiogram from October, demonstrated preserved left ventricular ejection fraction of 50 to 55% as well as mild mitral regurgitation. He takes Lasix daily while at [facility]. Also, has history of paroxysmal atrial fibrillation and is normally anticoagulated on Eliquis, this was stopped preoperatively for the procedure. He did go into atrial fibrillation with rapid ventricular response postoperatively. Was started on a Cardizem infusion which is currently infusing at 5 mg/h. Rate is better controlled in the low 100s. Blood pressure is normotensive. Patient is currently lying supine in bed. He is on BiPAP with above-mentioned settings. He is alert and answers my questions appropriately. He is complaint at the moment is his postsurgical back pain. He is receiving a combination of as needed Dilaudid and [place]'s. Lower extremity strength is intact and he denies any weakness or numbness. He will be monitored in the intensive care unit. Progress note dated May 21, 2024. The patient is seen today in room 364. The patient is currently on room air. Is not receiving any IV fluids. The patient did use BiPAP last night, with settings of 12/5, and 40%. He used it during the evening, when he was sleeping. Currently, he has no distress. He denies any shortness of breath, cough, wheezing, chest tightness, or phlegm production. He also denies any chest pain or pressure. His primary care physician is Dr. Deuce Brito. Current labs today only include a creatinine of 0.64, glucose of 199. Chest x-ray from yesterday shows evidence of cardiomegaly, pulmonary vascular congestion. Progress note dated May 22, 2024. The patient is seen today in room 364. Is currently using oxygen, 2 L. No IV fluids. He did use a BiPAP device overnight, with settings of 12/6, and 40%. The patient is not having any shortness of breath. The patient's saturations likely dropped, and oxygen was applied. He denies any cough, wheezing, chest tightness, or phlegm production. Current labs include a creatinine of 0.59, and a glucose of 146. Objective - Vital Signs Vital signs: Vital Signs Temp 98.1 F 05/22/24 09:08 Pulse 88 05/22/24 12:17 Resp 17 05/22/24 11:16 BP 114/81 05/22/24 11:16 Pulse Ox 94 L 05/22/24 11:16 FiO2 40 05/21/24 01:08 Intake & Output 05/21/24 05/22/24 05/22/24 18:59 06:59 18:59 Intake Total 620 350 Output Total 1150 950 930 Balance -530 -950 -580 Weight 115.5 kg Intake: IV 20 Invasive Line 2 20 Oral 600 350 Output: Urine 1150 950 930 Other: Voiding Method Toilet Toilet Toilet Urinal Urinal Urinal # Voids 1 1 # Bowel Movements 1 ABP, PAP, CO, CI - Last Documented Arterial Blood Pressure 115/77 - Exam No acute distress, oriented 3. Currently on 2 L. HEENT examination is grossly unremarkable. Mucous membranes are moist. No oral lesions. Neck supple. Full range of motion. No adenopathy thyromegaly or neck vein dist ention. Cardiovascular examination reveals regular rhythm rate. S1-S2 normal. No S3 or S4. No discernible murmur noted. Heart rate 88 bpm. Lungs reveal mostly clear breath sounds. Minimal bilateral rhonchi. No wheezes. No crackles. Breath sounds equal bilaterally. 2 L saturation is 98%. Abdomen soft bowel sounds are heard. No masses or tenderness. Extremities are intact. No cyanosis clubbing or edema. Skin is without rash or lesion. Neurologic examination is brief but nonfocal. - Labs CBC & Chem 7: 05/20/24 03:20 05/22/24 07:55 Labs: Abnormal Lab Results - Last 24 Hours (Table) 05/21/24 05/21/24 05/22/24 Range/Units 16:18 19:59 06:05 Creatinine (0.66-1.25) mg/dL POC Glucose (mg/dL) 192 H 180 H 164 H (70-110) mg/dL 05/22/24 05/22/24 Range/Units 07:55 12:21 Creatinine 0.59 L (0.66-1.25) mg/dL POC Glucose (mg/dL) 146 H (70-110) mg/dL Assessment and Plan Assessment: Severe L2-S1 spondylosis and stenosis status postoperative day #3 following an L2-S1 posterior lateral and interbody fusion and cage placement. Acute hypoxemic and hypercapnic respiratory failure, currently on BiPAP, likely secondary to a combination of medication effect and possible a mild exacerbation of diastolic congestive heart failure. Hypercapnic encephalopathy, improved. Atrial fibrillation with rapid ventricular response. History of obstructive sleep apnea. Chronic obstructive pulmonary disease. Former tobacco smoker. Marijuana smoker. History of hypertension. History of diabetes mellitus. History of heart failure with preserved ejection fraction. History of prior C2-T2 decompression and fusion. Plan: Plan dated May 21, 2024. The patient is doing well. He spent the evening, in the intensive care unit, and then was discharged out of the ICU. The patient is currently stable. He did use BiPAP overnight, with settings of 12/5 and 40%. Currently he is on room air. Is not receiving any IV fluids. Labs, x-rays, medications are reviewed. Prognosis is guarded. We will continue to follow make recommendations along the way. Plan dated May 22, 2024. The patient is seen today in room 364. He is currently on 2 L of oxygen. The patient is not having any respiratory issues. I suspect his saturations dropped, and the nurses apply the oxygen. He denies any shortness of breath, cough, wheezing, chest tightness, phlegm production, or chest pain. The patient is recovering from his recent surgery. Labs, x-rays, medications are reviewed. We will continue to follow make recommendations. Prognosis is guarded. The patient will continue to use BiPAP at nighttime. Time with Patient: Less than 30
--- NOTE | 2024-05-22 15:39 | P.PN ---
Subjective Progress Note Date: 05/22/24 Principal diagnosis: Status post [id number] posterior lateral decompression and fusion, multiple medical comorbidities Patient was evaluated today at bedside, resting in his hospital chair, he appeared to be in no acute distress. He has been ambulating well to and from the bathroom. He continues to urinate with no issues. Currently being followed by other medical specialties. Patient states that the pain is controlled with his current medications. Currently has no headaches, lightheadedness, dizziness,chest pain, shortness of breath Objective - Vital Signs Vital signs: Vital Signs Temp 98.1 F 05/22/24 09:08 Pulse 89 05/22/24 15:21 Resp 17 05/22/24 15:21 BP 118/73 05/22/24 15:21 Pulse Ox 98 05/22/24 15:21 FiO2 40 05/21/24 01:08 Intake & Output 05/21/24 05/22/24 05/22/24 18:59 06:59 18:59 Intake Total 620 350 Output Total 1150 950 930 Balance -530 -950 -580 Weight 115.5 kg Intake: IV 20 Invasive Line 2 20 Oral 600 350 Output: Urine 1150 950 930 Other: Voiding Method Toilet Toilet Toilet Urinal Urinal Urinal # Voids 1 1 # Bowel Movements 1 ABP, PAP, CO, CI - Last Documented Arterial Blood Pressure 115/77 - Exam Gen: AOx3, NAD VSS stable at this time Integument: ABDs are in good position and condition with surgical tape. There is some bloody serosanguineous drainage noted. Igor remain in good position and condition. 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, clam treader 4/5 strength appreciated in the bilateral lower extremities with hip flexion, knee extension, knee flexion, 5/5 strength appreciated the bilateral lower extremities with plantarflexion, dorsiflexion, EHL, FHL Reflexes: 2/4 in all UE and LE Negative Philippe's bilaterally Negative clonus bilaterally - Labs CBC & Chem 7: 05/20/24 03:20 05/22/24 07:55 Labs: Abnormal Lab Results - Last 24 Hours (Table) 05/21/24 05/21/24 05/22/24 Range/Units 16:18 19:59 06:05 Creatinine (0.66-1.25) mg/dL POC Glucose (mg/dL) 192 H 180 H 164 H (70-110) mg/dL 05/22/24 05/22/24 Range/Units 07:55 12:21 Creatinine 0.59 L (0.66-1.25) mg/dL POC Glucose (mg/dL) 146 H (70-110) mg/dL Assessment and Plan Assessment: Postoperative day #3 status post [id number] posterior lateral decompression and fusion, bilateral SI joint fusion Multiple medical comorbidities Plan: Pain control, continue with current combination of medications, this to include the Percocet, Flexeril, gabapentin and the IV Dilaudid for severe breakthrough pain DVT prophylaxis, patient is currently on heparin 5000 units every 12 hours. He does take Xarelto for his A-fib, this can be restarted per cardiology's recommendations Wound care, continue to monitor. Continue to utilize ABDs and dressing changes as needed. Patient's LSO brace was brought in by family yesterday, he has been utilizing it when up and ambulating Weight-bear as tolerated, recommend use of walker at all times Continue with PT/OT Other medical specialty recommendations appreciated Discharge planning: Will continue to follow the patient during the hospital stay. Hoping for discharge to home with home health care in the next 24-48 hours Time with Patient: Less than 30
[2024-05-22 16:35] LABS: Glucose,Whole Blood 158 mg/dL (70-110)
[2024-05-22 20:09] LABS: Glucose,Whole Blood 170 mg/dL (70-110)
--- NOTE | 2024-05-22 21:01 | P.PN ---
Subjective HISTORY OF PRESENTING ILLNESS This is a pleasant 58-year-old with past medical history significant for COPD, chronic diastolic heart failure, tobacco abuse, persistent atrial fibrillation, diabetes mellitus type 2, hypertension, hyperlipidemia. He follows in the office with Dr. Menard. Patient presented for elective lumbar surgery which was perf ormed yesterday without incident with approximately 450 mL blood loss. Patient did receive IV fluid resuscitation. He had been told to hold his Lasix for 10 days prior to surgery however was not having any significant lower extremity edema or worsening shortness breath. Patient is very limited in terms of his activities secondary to orthopedic issues and does not walk more than a block. After surgery patient had troubles weaning from a respiratory standpoint and also had A. fib with RVR with heart rates in the 100 to 1:30 range. He was given IV Cardizem 10 with a drip at 5 and heart rates in the 90s to 100s. Currently he denies any chest pain or pressure. He remains on BiPAP however t his is attempting to be weaned today. Anticoagulation is still on hold per orthopedic surgery. Chest x-ray showing cardiomegaly with pulmonary vascular congestion. He did receive IV Lasix yesterday with approximately 1500 mL output. Creatinine remains stable with potassium of 3.6. 05/21 Seen and examined. Has been diuresed and improved SOB. No chest pain or pressure. Cr stable. 05/22 patient seen and examined. Patient remains on IV Lasix. Patient cleared to restart anticoagulation per ortho. Having significant back pain. PHYSICAL EXAMINATION Vital signs reviewed. CONSTITUTIONAL: No apparent distress. HEENT: Head is normocephalic. Pupils are equal, round. Sclerae anicteric. Mucous membranes of the mouth are moist. No JVD. No carotid bruit. CHEST EXAMINATION: Lungs are clear to auscultation. No chest wall tenderness is noted on palpation or with deep breathing. HEART EXAMINATION: Irregular rate and rhythm. S1, S2 heard. No murmurs, gallops or rub. ABDOMEN: Soft, nontender. Positive bowel sounds. EXTREMITIES: 2+ peripheral pulses, no lower extremity edema and no calf ten derness. NEUROLOGIC EXAMINATION: Patient is awake, alert and oriented x3. ASSESSMENT Acute on chronic diastolic heart failure Acute on chronic respiratory failure mainly related to heart failure as well as component of COPD Persistent atrial fibrillation with RVR Hypertension Hyperlipidemia Diabetes mellitus type 2 Status post lumbar surgery 05/19 PLAN Transition to oral Lasix tomorrow. Adjust Cardizem to long-acting. Place patient back on anticoagulation as he is cleared for anticoagulation per orthopedic surgery. Objective - Vital Signs Vital signs: Vital Signs Temp 98.3 F 05/22/24 19:44 Pulse 101 H 05/22/24 19:44 Resp 18 05/22/24 19:44 BP 134/78 05/22/24 19:44 Pulse Ox 94 L 05/22/24 19:44 FiO2 40 05/21/24 01:08 Intake & Output 05/22/24 05/22/24 05/23/24 06:59 18:59 06:59 Intake Total 590 Output Total 950 930 Balance -950 -340 Weight 115.5 kg Intake: Oral 590 Output: Urine 950 930 Other: Voiding Method Toilet Toilet Toilet Urinal Urinal Urinal # Voids 1 1 # Bowel Movements 1 ABP, PAP, CO, CI - Last Documented Arterial Blood Pressure 115/77 - Labs CBC & Chem 7: 05/20/24 03:20 05/22/24 07:55 Labs: Abnormal Lab Results - Last 24 Hours (Table) 05/22/24 05/22/24 05/22/24 Range/Units 06:05 07:55 12:21 Creatinine 0.59 L (0.66-1.25) mg/dL POC Glucose (mg/dL) 164 H 146 H (70-110) mg/dL 05/22/24 05/22/24 Range/Units 16:25 20:07 Creatinine (0.66-1.25) mg/dL POC Glucose (mg/dL) 158 H 170 H (70-110) mg/dL
[2024-05-22] MEDS: RIVAROXABAN 20 MG TAB PO SCH (21:09)
[2024-05-23 06:15] LABS: Glucose,Whole Blood 155 mg/dL (70-110)
[2024-05-23 06:16] LABS: Basophils % (A) 0 %; Eosinophils # (A) 0.1 k/uL (0-0.7); Eosinophils % (A) 1 %; HCT 33.1 % (39.0-53.0); HGB 10.1 gm/dL (13.0-17.5); Hypochromasia Slight; Lymphocytes % (A) 10 %; MCH 27.5 pg (25.0-35.0); MCHC 30.7 g/dL (31.0-37.0); MCV 89.7 fL (80.0-100.0); Mean Platelet Volume 8.8; Monocytes # (A) 0.8 k/uL (0-1.0); Monocytes % (A) 8 %; Neutrophils # (A) 7.6 k/uL (1.3-7.7); Neutrophils % (A) 77 %; Platelet Count 235 k/uL (150-450); RBC 3.69 m/uL (4.30-5.90); RDW 15.8 % (11.5-15.5); WBC 9.8 k/uL (3.8-10.6)
[2024-05-23 07:06] LABS: ALT 41 U/L (4-49); AST 53 U/L (17-59); African American GFR (CKD) >90 (>60 ml/min/1.73 sqM); Albumin 3.2 g/dL (3.5-5.0); Alkaline Phosphatase 115 U/L (38-126); Anion Gap 5 mmol/L; Blood Urea Nitrogen 15 mg/dL (9-20); Calcium 8.4 mg/dL (8.4-10.2); Carbon Dioxide 33 mmol/L (22-30); Chloride 94 mmol/L (98-107); Glucose 132 mg/dL (74-99); Non-African American GFR(CKD) >90 (>60 ml/min/1.73 sqM); Sodium 132 mmol/L (137-145); Total Bilirubin 1.8 mg/dL (0.2-1.3); Total Protein 5.5 g/dL (6.3-8.2)
[2024-05-23] MEDS: POTASSIUM CHLORIDE ER 20 MEQ TAB.ER PO SCH (08:19)
[2024-05-23] MEDS: DILTIAZEM CD 180 MG CAP.ER.24H PO SCH (08:19)
[2024-05-23] MEDS: FUROSEMIDE 40 MG TAB PO SCH (08:20)
--- NOTE | 2024-05-23 10:16 | PN ---
PROGRESS NOTE DATE OF SERVICE: 05/22/2024 SUBJECTIVE: His wound looks good. OBJECTIVE: CARDIOVASCULAR: S1, S2. LUNGS: Clear. GI: Soft. HEMATOLOGY: Negative for Homans. He is up ambulating. The pain is under decent control. He continues his breathing treatments for COPD. He is on oxygen. He is to continue with PT/OT. He has some serous drainage seeping out of his wound, but the wound itself looks intact with torsten intact with no redness, excoriation, or fluctuance. Continue current treatments for COPD, hypertension. Prognosis guarded. PT/OT. Possible discharge soon. MMODL / IJN: [id number] /
--- NOTE | 2024-05-23 10:48 | P.PN ---
Subjective Progress Note Date: 05/23/24 Principal diagnosis: Status post [id number] posterior lateral decompression and fusion, multiple medical comorbidities Patient was evaluated today at bedside, resting in his hospital chair, he appeared to be in no acute distress. He has been ambulating well to and from the bathroom. He continues to urinate with no issues. He did have a small bowel movement yesterday. He is hoping to be able to shower today.Currently being followed by other medical specialties. Patient states that the pain is controlled with his current medications. Currently has no headaches, lightheade dness, dizziness,chest pain, shortness of breath Objective - Vital Signs Vital signs: Vital Signs Temp 98.4 F 05/23/24 08:00 Pulse 82 05/23/24 08:49 Resp 18 05/23/24 08:00 BP 129/76 05/23/24 08:00 Pulse Ox 98 05/23/24 08:28 FiO2 40 05/21/24 01:08 Intake & Output 05/22/24 05/23/24 05/23/24 18:59 06:59 18:59 Intake Total 590 18 Output Total 930 1500 Balance -340 -1500 18 Intake: IV 18 Invasive Line 7 18 Oral 590 Output: Urine 930 1500 Other: Voiding Method Toilet Toilet Urinal Urinal # Voids 1 # Bowel Movements 1 1 ABP, PAP, CO, CI - Last Documented Arterial Blood Pressure 115/77 - Exam Gen: AOx3, NAD VSS stable at this time Integument: dressing was removed today at bedside, bloody serosanguineous fluid noted on dressing. Igor in good position and condition, new bandage was applied 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, precipitator 4/5 strength appreciated in the bilateral lower extremities with hip flexion, knee extension, knee flexion, 5/5 strength appreciated the bilateral lower extremities with plantarflexion, dorsiflexion, EHL, FHL Reflexes: 2/4 in all UE and LE Negative Philippe's bilaterally Negative clonus bilaterally - Labs CBC & Chem 7: 05/23/24 05:45 05/23/24 05:45 Labs: Abnormal Lab Results - Last 24 Hours (Table) 05/22/24 05/22/24 05/22/24 Range/Units 12:21 16:25 20:07 RBC (4.30-5.90) m/uL Hgb (13.0-17.5) gm/dL Hct (39.0-53.0) % MCHC (31.0-37.0) g/dL RDW (11.5-15.5) % Sodium (137-145) mmol/L Potassium (3.5-5.1) mmol/L Chloride (98-107) mmol/L Carbon Dioxide (22-30) mmol/L Creatinine (0.66-1.25) mg/dL Glucose (74-99) mg/dL POC Glucose (mg/dL) 146 H 158 H 170 H (70-110) mg/dL Total Bilirubin (0.2-1.3) mg/dL Total Protein (6.3-8.2) g/dL Albumin (3.5-5.0) g/dL 05/23/24 05/23/24 05/23/24 Range/Units 05:45 05:45 06:13 RBC 3.69 L (4.30-5.90) m/uL Hgb 10.1 L (13.0-17.5) gm/dL Hct 33.1 L (39.0-53.0) % MCHC 30.7 L (31.0-37.0) g/dL RDW 15.8 H (11.5-15.5) % Sodium 132 L (137-145) mmol/L Potassium 3.0 L (3.5-5.1) mmol/L Chloride 94 L (98-107) mmol/L Carbon Dioxide 33 H (22-30) mmol/L Creatinine 0.62 L (0.66-1.25) mg/dL Glucose 132 H (74-99) mg/dL POC Glucose (mg/dL) 155 H (70-110) mg/dL Total Bilirubin 1.8 H (0.2-1.3) mg/dL Total Protein 5.5 L (6.3-8.2) g/dL Albumin 3.2 L (3.5-5.0) g/dL Assessment and Plan Assessment: Postoperative day #4 status post [id number] posterior lateral decompression and fusion, bilateral SI joint fusion Multiple medical comorbidities Plan: Pain control, continue with current combination of medications, we will discontinue [place] at this time. Okay to continue with the gabapentin, Flexeril and Percocet. Again discussed with patient the need to try to start discontinuing use of the Dilaudid DVT prophylaxis, okay to restart Xarelto Wound care, continue to monitor. Continue to utilize ABDs and dressing changes as needed. LSO brace to be utilized when up and ambulating longer distances, for transferring purposes he does not need to wear No bending, lifting or twisting Weight-bear as tolerated, recommend use of walker at all times Continue with PT/OT Other medical specialty recommendations appreciated Discharge planning: discussed with patient discharge options, he will discuss with his the possibility of going home versus home care versus subacute rehab. If they decide on rehab, this will happen later next week.
[2024-05-23] MEDS: VANCOMYCIN TROUGH DUE 1 EACH MISC MISCELLANE ONE (10:59)
[2024-05-23 11:33] LABS: Glucose,Whole Blood 120 mg/dL (70-110)
--- NOTE | 2024-05-23 11:53 | P.PN ---
Subjective Progress Note Date: 05/23/24 Principal diagnosis: Back pain. Patient is a 58-year-old white male with past medical history significant for obstructive sleep apnea with home CPAP, COPD, ex tobacco smoker, marijuana smoker, atrial fibrillation with previous cardioversion, diabetes mellitus, hypertension, heart failure, and prior cervical level spine surgery. His primary care provider is Dr. Deuce Brito. Patient has been having issues with lower back pain with radiculopathy like symptoms. He was found to have severe L2-S1 spondylosis with stenosis. Patient was brought into the hospital yesterday for an elective L2-S1 posteriorlateral and interbody fusion and cage placement. Patient was extubated postoperatively and transferred to the intensive care unit. Postoperatively, he was noted to be lethargic and confused. Blood gases were drawn which showed a PaO2 of 156, pCO2 of 50, pH of 7.29. Patient was placed on BiPAP per my supervising physician recommendation. Current BiPAP settings are 12/5 with an FiO2 40%. Patient is generating tidal volumes between 400 and 500. Respiratory rate is in the mid 20s. He is in no respiratory distress. Chest x-ray postoperatively shows cardiomegaly with slight increased interstitial and perihilar densities. No consolidations or pleural effusions. Concerning for mild CHF exacerbation. Patient is known to have chronic diastolic heart failure. Most recent available echocardiogram from October, demonstrated preserved left ventricular ejection fraction of 50 to 55% as well as mild mitral regurgitation. He takes Lasix daily while at [facility]. Also, has history of paroxysmal atrial fibrillation and is normally anticoagulated on Eliquis, this was stopped preoperatively for the procedure. He did go into atrial fibrillation with rapid ventricular response postoperatively. Was started on a Cardizem infusion which is currently infusing at 5 mg/h. Rate is better controlled in the low 100s. Blood pressure is normotensive. Patient is currently lying supine in bed. He is on BiPAP with above-mentioned settings. He is alert and answers my questions appropriately. He is complaint at the moment is his postsurgical back pain. He is receiving a combination of as needed Dilaudid and Dahlgren's. Lower extremity strength is intact and he denies any weakness or numbness. He will be monitored in the intensive care unit. Progress note dated May 21, 2024. The patient is seen today in room 364. The patient is currently on room air. Is not receiving any IV fluids. The patient did use BiPAP last night, with settings of 12/5, and 40%. He used it during the evening, when he was sleeping. Currently, he has no distress. He denies any shortness of breath, cough, wheezing, chest tightness, or phlegm production. He also denies any chest pain or pressure. His primary care physician is Dr. Deuce Brito. Current labs today only include a creatinine of 0.64, glucose of 199. Chest x-ray from yesterday shows evidence of cardiomegaly, pulmonary vascular congestion. Progress note dated May 22, 2024. The patient is seen today in room 364. Is currently using oxygen, 2 L. No IV fluids. He did use a BiPAP device overnight, with settings of 12/6, and 40%. The patient is not having any shortness of breath. The patient's saturations likely dropped, and oxygen was applied. He denies any cough, wheezing, chest tightness, or phlegm production. Current labs include a creatinine of 0.59, and a glucose of 146. Progress note dated May 23, 2024. The patient is seen today in room 364. The patient not requiring any suppl emental oxygen. The patient states he did not use the BiPAP device last night. Other than pain, the patient is doing very well. Current labs include a white count of 9.8, hemoglobin 10.1, hematocrit 33.1, and a normal platelet count. Sodium 132, potassium 3, chloride 94, CO2 33, BUN 15, creatinine 0.62. Glucose is 120. Albumin is 3.2. No radiographs to report on. Objective - Vital Signs Vital signs: Vital Signs Temp 98.4 F 05/23/24 08:00 Pulse 82 05/23/24 08:49 Resp 18 05/23/24 08:00 BP 129/76 05/23/24 08:00 Pulse Ox 98 05/23/24 08:28 FiO2 40 05/21/24 01:08 Intake & Output 05/22/24 05/23/24 05/23/24 18:59 06:59 18:59 Intake Total 590 18 Output Total 930 1500 Balance -340 -1500 18 Intake: IV 18 Invasive Line 7 18 Oral 590 Output: Urine 930 1500 Other: Voiding Method Toilet Toilet Urinal Urinal # Voids 1 # Bowel Movements 1 1 ABP, PAP, CO, CI - Last Documented Arterial Blood Pressure 115/77 - Exam No acute distress, oriented 3. Currently on room air. Saturations are 98%. HEENT examination is grossly unremarkable. Mucous membranes are moist. No oral lesions. Neck supple. Full range of motion. No adenopathy thyromegaly or neck vein distention. Cardiovascular examination reveals regular rhythm rate. S1-S2 normal. No S3 or S4. No discernible murmur noted. Heart rate 82 bpm. Lungs reveal mostly clear breath sounds. Minimal bilateral rhonchi. No wheezes. No crackles. Breath sounds equal bilaterally. Room air saturation is 98%. Abdomen soft bowel sounds are heard. No masses or tenderness. Extremities are intact. No cyanosis clubbing or edema. Skin is without rash or lesion. Neurologic examination is brief but nonfocal. - Labs CBC & Chem 7: 05/23/24 05:45 05/23/24 05:45 Labs: Abnormal Lab Results - Last 24 Hours (Table) 05/22/24 05/22/24 05/22/24 Range/Units 12:21 16:25 20:07 RBC (4.30-5.90) m/uL Hgb (13.0-17.5) gm/dL Hct (39.0-53.0) % MCHC (31.0-37.0) g/dL RDW (11.5-15.5) % Sodium (137-145) mmol/L Potassium (3.5-5.1) mmol/L Chloride (98-107) mmol/L Carbon Dioxide (22-30) mmol/L Creatinine (0.66-1.25) mg/dL Glucose (74-99) mg/dL POC Glucose (mg/dL) 146 H 158 H 170 H (70-110) mg/dL Total Bilirubin (0.2-1.3) mg/dL Total Protein (6.3-8.2) g/dL Albumin (3.5-5.0) g/dL 05/23/24 05/23/24 05/23/24 Range/Units 05:45 05:45 06:13 RBC 3.69 L (4.30-5.90) m/uL Hgb 10.1 L (13.0-17.5) gm/dL Hct 33.1 L (39.0-53.0) % MCHC 30.7 L (31.0-37.0) g/dL RDW 15.8 H (11.5-15.5) % Sodium 132 L (137-145) mmol/L Potassium 3.0 L (3.5-5.1) mmol/L Chloride 94 L (98-107) mmol/L Carbon Dioxide 33 H (22-30) mmol/L Creatinine 0.62 L (0.66-1.25) mg/dL Glucose 132 H (74-99) mg/dL POC Glucose (mg/dL) 155 H (70-110) mg/dL Total Bilirubin 1.8 H (0.2-1.3) mg/dL Total Protein 5.5 L (6.3-8.2) g/dL Albumin 3.2 L (3.5-5.0) g/dL 05/23/24 Range/Units 11:31 RBC (4.30-5.90) m/uL Hgb (13.0-17.5) gm/dL Hct (39.0-53.0) % MCHC (31.0-37.0) g/dL RDW (11.5-15.5) % Sodium (137-145) mmol/L Potassium (3.5-5.1) mmol/L Chloride (98-107) mmol/L Carbon Dioxide (22-30) mmol/L Creatinine (0.66-1.25) mg/dL Glucose (74-99) mg/dL POC Glucose (mg/dL) 120 H (70-110) mg/dL Total Bilirubin (0.2-1.3) mg/dL Total Protein (6.3-8.2) g/dL Albumin (3.5-5.0) g/dL Assessment and Plan Assessment: Severe L2-S1 spondylosis and stenosis status postoperative day #4 following an L2-S1 posterior lateral and interbody fusion and cage placement. Acute hypoxemic and hypercapnic respiratory failure, currently on BiPAP, likely secondary to a combination of medication effect and possible a mild exacerbation of diastolic congestive heart failure. Hypercapnic encephalopathy, improved. Atrial fibrillation with rapid ventricular response. History of obstructive sleep apnea. Chronic obstructive pulmonary disease. Former tobacco smoker. Marijuana smoker. History of hypertension. History of diabetes mellitus. History of heart failure with preserved ejection fraction. History of prior C2-T2 decompression and fusion. Plan: Plan dated May 21, 2024. The patient is doing well. He spent the evening, in the intensive care unit, and then was discharged out of the ICU. The patient is currently stable. He did use BiPAP overnight, with settings of 12/5 and 40%. Currently he is on room air. Is not receiving any IV fluids. Labs, x-rays, medications are reviewed. Prognosis is guarded. We will continue to follow make recommendations along the way. Plan dated May 22, 2024. The patient is seen today in room 364. He is currently on 2 L of oxygen. The patient is not having any respiratory issues. I suspect his saturations dropped, and the nurses apply the oxygen. He denies any shortness of breath, cough, wheezing, chest tightness, phlegm production, or chest pain. The patient is recovering from his recent surgery. Labs, x-rays, medications are reviewed. We will continue to follow make recommendations. Prognosis is guarded. The patient will continue to use BiPAP at nighttime. Plan dated May 23, 2024. The patient appears to be doing relatively well. He is sitting in a chair next to the hospital bed. The patient states that he is not using oxygen at the time. He is not short of breath. Denies any coughing, wheezing, chest tightness, or phlegm production. Likewise, the patient did not use the BiPAP device last night. Labs, x-rays, medications are reviewed. We will follow the patient, and make recommendations. Prognosis is guarded. Time with Patient: Less than 30
[2024-05-23] MEDS: SODIUM CHLORIDE 0.9% 1,000 ML IV SCH (12:58)
--- NOTE | 2024-05-23 14:26 | P.PN ---
Subjective Progress Note Date: 05/23/24 HISTORY OF PRESENTING ILLNESS This is a pleasant 58-year-old with past medical history significant for COPD, chronic diastolic heart failure, tobacco abuse, persistent atrial fibrillation, diabetes mellitus type 2, hypertension, hyperlipidemia. He follows in the office with Dr. Menard. Patient presented for elective lumbar surgery which was performed yesterday without incident with approximately 450 mL blood loss. Patient did receive IV fluid resuscitation. He had been told to hold his Lasix for 10 days prior to surgery however was not having any significant lower extremity edema or worsening shortness breath. Patient is very limited in terms of his activities secondary to orthopedic issues and does not walk more than a block. After surgery patient had troubles weaning from a respiratory standpoint and also had A. fib with RVR with heart rates in the 100 to 1:30 range. He was given IV Cardizem 10 with a drip at 5 and heart rates in the 90s to 100s. Currently he denies any chest pain or pressure. He remains on BiPAP however this is attempting to be weaned today. Anticoagulation is still on hold per orthopedic surgery. Chest x-ray showing cardiomegaly with pulmonary vascular congestion. He did receive IV Lasix yesterday with approximately 1500 mL output. Creatinine remains stable with potassium of 3.6. 05/21 Seen and examined. Has been diuresed and improved SOB. No chest pain or pressure. Cr stable. 05/22 patient seen and examined. Patient remains on IV Lasix. Patient cleared to restart anticoagulation per ortho. Having significant back pain. 05/23 Patient is still having significant back pain. Denies any chest pain or pressure. PHYSICAL EXAMINATION Vital signs reviewed. CONSTITUTIONAL: No apparent distress. HEENT: Head is normocephalic. Pupils are equal, round. Sclerae anicteric. Mucous membranes of the mouth are moist. No JVD. No carotid bruit. CHEST EXAMINATION: Lungs are clear to auscultation. No chest wall tenderness is noted on palpation or with deep breathing. HEART EXAMINATION: Irregular rate and rhythm. S1, S2 heard. No murmurs, gallops or rub. ABDOMEN: Soft, nontender. Positive bowel sounds. EXTREMITIES: 2+ peripheral pulses, trace lower extremity edema and no calf tenderness. NEUROLOGIC EXAMINATION: Patient is awake, alert and oriented x3. ASSESSMENT Acute on chronic diastolic heart failure Acute on chronic respiratory failure mainly related to heart failure as well as component of COPD Persistent atrial fibrillation with RVR Hypertension Hyperlipidemia Diabetes mellitus type 2 Status post lumbar surgery 05/19 PLAN Continue with anticoagulation. Continue with oral Lasix. Pain is not well controlled. He is planning for rehab next week. Patient seen and examined in rounds with Dr. Kim plan of care agreed upon. Objective - Vital Signs Vital signs: Vital Signs Temp 98.4 F 05/23/24 08:00 Pulse 82 05/23/24 08:49 Resp 18 05/23/24 08:00 BP 129/76 05/23/24 08:00 Pulse Ox 98 05/23/24 08:28 FiO2 40 05/21/24 01:08 Intake & Output 05/22/24 05/23/24 05/23/24 18:59 06:59 18:59 Intake Total 590 18 Output Total 930 1500 Balance -340 -1500 18 Intake: IV 18 Invasive Line 7 18 Oral 590 Output: Urine 930 1500 Other: Voiding Method Toilet Toilet Urinal Urinal # Voids 1 # Bowel Movements 1 1 ABP, PAP, CO, CI - Last Documented Arterial Blood Pressure 115/77 - Labs CBC & Chem 7: 05/23/24 05:45 05/23/24 05:45 Labs: Abnormal Lab Results - Last 24 Hours (Table) 05/22/24 05/22/24 05/23/24 Range/Units 16:25 20:07 05:45 RBC (4.30-5.90) m/uL Hgb (13.0-17.5) gm/dL Hct (39.0-53.0) % MCHC (31.0-37.0) g/dL RDW (11.5-15.5) % Sodium 132 L (137-145) mmol/L Potassium 3.0 L (3.5-5.1) mmol/L Chloride 94 L (98-107) mmol/L Carbon Dioxide 33 H (22-30) mmol/L Creatinine 0.62 L (0.66-1.25) mg/dL Glucose 132 H (74-99) mg/dL POC Glucose (mg/dL) 158 H 170 H (70-110) mg/dL Total Bilirubin 1.8 H (0.2-1.3) mg/dL Total Protein 5.5 L (6.3-8.2) g/dL Albumin 3.2 L (3.5-5.0) g/dL 05/23/24 05/23/24 05/23/24 Range/Units 05:45 06:13 11:31 RBC 3.69 L (4.30-5.90) m/uL Hgb 10.1 L (13.0-17.5) gm/dL Hct 33.1 L (39.0-53.0) % MCHC 30.7 L (31.0-37.0) g/dL RDW 15.8 H (11.5-15.5) % Sodium (137-145) mmol/L Potassium (3.5-5.1) mmol/L Chloride (98-107) mmol/L Carbon Dioxide (22-30) mmol/L Creatinine (0.66-1.25) mg/dL Glucose (74-99) mg/dL POC Glucose (mg/dL) 155 H 120 H (70-110) mg/dL Total Bilirubin (0.2-1.3) mg/dL Total Protein (6.3-8.2) g/dL Albumin (3.5-5.0) g/dL
[2024-05-23 16:37] LABS: Glucose,Whole Blood 182 mg/dL (70-110)
[2024-05-23 20:21] LABS: Glucose,Whole Blood 129 mg/dL (70-110)
[2024-05-24 06:00] LABS: Glucose,Whole Blood 145 mg/dL (70-110)
[2024-05-24 08:42] LABS: African American GFR (CKD) >90 (>60 ml/min/1.73 sqM); Non-African American GFR(CKD) >90 (>60 ml/min/1.73 sqM)
--- NOTE | 2024-05-24 09:49 | P.PN ---
Subjective Progress Note Date: 05/24/24 Principal diagnosis: Back pain. Patient is a 58-year-old white male with past medical history significant for obstructive sleep apnea with home CPAP, COPD, ex tobacco smoker, marijuana smoker, atrial fibrillation with previous cardioversion, diabetes mellitus, hypertension, heart failure, and prior cervical level spine surgery. His primary care provider is Dr. Deuce Brito. Patient has been having issues with lower back pain with radiculopathy like symptoms. He was found to have severe L2-S1 spondylosis with stenosis. Patient was brought into the hospital yesterday for an elective L2-S1 posteriorlateral and interbody fusion and cage placement. Patient was extubated postoperatively and transferred to the intensive care unit. Postoperatively, he was noted to be lethargic and confused. Blood gases were drawn which showed a PaO2 of 156, pCO2 of 50, pH of 7.29. Patient was placed on BiPAP per my supervising physician recommendation. Current BiPAP settings are 12/5 with an FiO2 40%. Patient is generating tidal volumes between 400 and 500. Respiratory rate is in the mid 20s. He is in no respiratory distress. Chest x-ray postoperatively shows cardiomegaly with slight increased interstitial and perihilar densities. No consolidations or pleural effusions. Concerning for mild CHF exacerbation. Patient is known to have chronic diastolic heart failure. Most recent available echocardiogram from October, demonstrated preserved left ventricular ejection fraction of 50 to 55% as well as mild mitral regurgitation. He takes Lasix daily while at [facility]. Also, has history of paroxysmal atrial fibrillation and is normally anticoagulated on Eliquis, this was stopped preoperatively for the procedure. He did go into atrial fibrillation with rapid ventricular response postoperatively. Was started on a Cardizem infusion which is currently infusing at 5 mg/h. Rate is better controlled in the low 100s. Blood pressure is normotensive. Patient is currently lying supine in bed. He is on BiPAP with above-mentioned settings. He is alert and answers my questions appropriately. He is complaint at the moment is his postsurgical back pain. He is receiving a combination of as needed Dilaudid and [place]'s. Lower extremity strength is intact and he denies any weakness or numbness. He will be monitored in the intensive care unit. Progress note dated May 21, 2024. The patient is seen today in room 364. The patient is currently on room air. Is not receiving any IV fluids. The patient did use BiPAP last night, with settings of 12/5, and 40%. He used it during the evening, when he was sleeping. Currently, he has no distress. He denies any shortness of breath, cough, wheezing, chest tightness, or phlegm production. He also denies any chest pain or pressure. His primary care physician is Dr. Deuce Brito. Current labs today only include a creatinine of 0.64, glucose of 199. Chest x-ray from yesterday shows evidence of cardiomegaly, pulmonary vascular congestion. Progress note dated May 22, 2024. The patient is seen today in room 364. Is currently using oxygen, 2 L. No IV fluids. He did use a BiPAP device overnight, with settings of 12/6, and 40%. The patient is not having any shortness of breath. The patient's saturations likely dropped, and oxygen was applied. He denies any cough, wheezing, chest tightness, or phlegm production. Current labs include a creatinine of 0.59, and a glucose of 146. Progress note dated May 23, 2024. The patient is seen today in room 364. The patient not requiring any suppl emental oxygen. The patient states he did not use the BiPAP device last night. Other than pain, the patient is doing very well. Current labs include a white count of 9.8, hemoglobin 10.1, hematocrit 33.1, and a normal platelet count. Sodium 132, potassium 3, chloride 94, CO2 33, BUN 15, creatinine 0.62. Glucose is 120. Albumin is 3.2. No radiographs to report on. Progress note dated May 24, 2024. The patient was seen in room 364. Currently he is on room air. He did not use BiPAP last night. He is not receiving any IV fluids. His pain is much better controlled. He denies any shortness of breath, cough, wheezing, chest tightness, phlegm production, chest pain or pressure, or any GI issues. Labs today include a creatinine of 0.51. Objective - Vital Signs Vital signs: Vital Signs Temp 98.2 F 05/24/24 03:25 Pulse 112 H 05/24/24 03:25 Resp 16 05/24/24 03:25 BP 124/75 06/30/24 03:25 Pulse Ox 94 L 05/24/24 03:25 FiO2 40 05/21/24 01:08 Intake & Output 05/23/24 05/24/24 05/24/24 18:59 06:59 18:59 Intake Total 18 118 Output Total 1280 Balance 18 -1162 Intake: IV 18 Invasive Line 7 18 Oral 118 Output: Urine 1280 Other: Voiding Method Toilet Urinal ABP, PAP, CO, CI - Last Documented Arterial Blood Pressure 115/77 - Exam No acute distress, oriented 3. Currently on room air. Saturations are 95 %. HEENT examination is grossly unremarkable. Mucous membranes are moist. No oral lesions. Neck supple. Full range of motion. No adenopathy thyromegaly or neck vein distention. Cardiovascular examination reveals regular rhythm rate. S1-S2 normal. No S3 or S4. No discernible murmur noted. Heart rate 93 bpm. Lungs reveal mostly clear breath sounds. Minimal bilateral rhonchi. No wheezes. No crackles. Breath sounds equal bilaterally. Room air saturation is 95 %. Abdomen soft bowel sounds are heard. No masses or tenderness. Extremities are intact. No cyanosis clubbing or edema. Skin is without rash or lesion. Neurologic examination is brief but nonfocal. - Labs CBC & Chem 7: 05/23/24 05:45 05/24/24 06:57 Labs: Abnormal Lab Results - Last 24 Hours (Table) 05/23/24 05/23/24 05/23/24 Range/Units 11:31 16:36 20:20 Creatinine (0.66-1.25) mg/dL POC Glucose (mg/dL) 120 H 182 H 129 H (70-110) mg/dL 05/24/24 05/24/24 Range/Units 05:58 06:57 Creatinine 0.51 L (0.66-1.25) mg/dL POC Glucose (mg/dL) 145 H (70-110) mg/dL Assessment and Plan Assessment: Severe L2-S1 spondylosis and stenosis status postoperative day #5 following an L2-S1 posterior lateral and interbody fusion and cage placement. Acute hypoxemic and hypercapnic respiratory failure, currently on BiPAP, likely secondary to a combination of medication effect and possible a mild exacerbation of diastolic congestive heart failure. Hypercapnic encephalopathy, improved. Atrial fibrillation with rapid ventricular response. History of obstructive sleep apnea. Chronic obstructive pulmonary disease. Former tobacco smoker. Marijuana smoker. History of hypertension. History of diabetes mellitus. History of heart failure with preserved ejection fraction. History of prior C2-T2 decompression and fusion. Plan: Plan dated May 21, 2024. The patient is doing well. He spent the evening, in the intensive care unit, and then was discharged out of the ICU. The patient is currently stable. He did use BiPAP overnight, with settings of 12/5 and 40%. Currently he is on room air. Is not receiving any IV fluids. Labs, x-rays, medications are reviewed. Prognosis is guarded. We will continue to follow make recommendations along the way. Plan dated May 22, 2024. The patient is seen today in room 364. He is currently on 2 L of oxygen. The patient is not having any respiratory issues. I suspect his saturations dropped, and the nurses apply the oxygen. He denies any shortness of breath, cough, wheezing, chest tightness, phlegm production, or chest pain. The patient is recovering from his recent surgery. Labs, x-rays, medications are reviewed. We will continue to follow make recommendations. Prognosis is guarded. The patient will continue to use BiPAP at nighttime. Plan dated May 23, 2024. The patient appears to be doing relatively well. He is sitting in a chair next to the hospital bed. The patient states that he is not using oxygen at the time. He is not short of breath. Denies any coughing, wheezing, chest tightness, or phlegm production. Likewise, the patient did not use the BiPAP device last night. Labs, x-rays, medications are reviewed. We will follow the patient, and make recommendations. Prognosis is guarded. Plan dated May 24, 2024. The patient is seen today in room 364. The patient is doing well. He denies any shortness of breath, chest pain or pressure, or any other complaints for that matter. He is currently on room air. He did not use BiPAP last night. We will continue to follow the patient, make recommendations along the way. The patient's prognosis overall, has been good. Time with Patient: Less than 30
[2024-05-24 11:20] LABS: Glucose,Whole Blood 155 mg/dL (70-110)
--- NOTE | 2024-05-24 11:26 | P.PN ---
Subjective Progress Note Date: 05/24/24 Principal diagnosis: Status post [id number] posterior lateral decompression and fusion, multiple medical comorbidities Patient was evaluated today at bedside, resting in his hospital chair.patient admits to worsening pain today. We did discontinue the [place] yesterday because he was also utilizing the Percocet. He has continued to ambulate well with the assistance of the walker and brace. He states he did have a bowel movement earlier this morning. Currently has no headaches, lightheadedness, dizziness,chest pain, shortness of breath Objective - Vital Signs Vital signs: Vital Signs Temp 97.7 F 05/24/24 08:00 Pulse 90 05/24/24 08:00 Resp 18 05/24/24 08:00 BP 131/67 05/24/24 08:00 Pulse Ox 94 L 05/24/24 08:00 FiO2 40 05/21/24 01:08 Intake & Output 05/23/24 05/24/24 05/24/24 18:59 06:59 18:59 Intake Total 18 118 Output Total 1280 Balance 18 -1162 Intake: IV 18 Invasive Line 7 18 Oral 118 Output: Urine 1280 Other: Voiding Method Toilet Urinal ABP, PAP, CO, CI - Last Documented Arterial Blood Pressure 115/77 - Exam Gen: AOx3, NAD VSS stable at this time Integument: Postop dressing was again removed today and changed at bedside. Andrews are in good position and condition. 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 4/5 strength appreciated in the bilateral lower extremities with hip flexion, knee extension, knee flexion, 5/5 strength appreciated the bilateral lower extremities with plantarflexion, dorsiflexion, EHL, FHL Reflexes: 2/4 in all UE and LE Negative Philippe's bilaterally Negative clonus bilaterally - Labs CBC & Chem 7: 05/23/24 05:45 05/24/24 06:57 Labs: Abnormal Lab Results - Last 24 Hours (Table) 05/23/24 05/23/24 05/23/24 Range/Units 11:31 16:36 20:20 Creatinine (0.66-1.25) mg/dL POC Glucose (mg/dL) 120 H 182 H 129 H (70-110) mg/dL 05/24/24 05/24/24 05/24/24 Range/Units 05:58 06:57 11:16 Creatinine 0.51 L (0.66-1.25) mg/dL POC Glucose (mg/dL) 145 H 155 H (70-110) mg/dL Assessment and Plan Assessment: Postoperative day #5 status post [id number] posterior lateral decompression and fusion, bilateral SI joint fusion Multiple medical comorbidities Plan: Pain control, did adjust the Percocet to 10 mg / 325 mg every 4 hours. Continue to try to limit the Dilaudid as best as possible. DVT prophylaxis, patient has resumed his Xarelto Wound care, continue to monitor. Continue to utilize ABDs and dressing changes as needed. LSO brace to be utilized when up and ambulating longer distances, for transferring purposes he does not need to wear No bending, lifting or twisting Weight-bear as tolerated, recommend use of walker at all times Continue with PT/OT Other medical specialty recommendations appreciated Discharge planning: Home health care versus subacute rehab, hopeful discharge in the next 24 to 48 hours Time with Patient: Less than 30
[2024-05-24] MEDS: oxyCODONE-APAP 7.5-325MG 1 EACH TAB PO SCH (11:58)
--- NOTE | 2024-05-24 13:39 | P.PN ---
Subjective Progress Note Date: 05/24/24 HISTORY OF PRESENTING ILLNESS This is a pleasant 58-year-old with past medical history significant for COPD, chronic diastolic heart failure, tobacco abuse, persistent atrial fibrillation, diabetes mellitus type 2, hypertension, hyperlipidemia. He follows in the office with Dr. Menard. Patient presented for elective lumbar surgery which was performed yesterday without incident with approximately 450 mL blood loss. Patient did receive IV fluid resuscitation. He had been told to hold his Lasix for 10 days prior to surgery however was not having any significant lower extremity edema or worsening shortness breath. Patient is very limited in terms of his activities secondary to orthopedic issues and does not walk more than a block. After surgery patient had troubles weaning from a respiratory standpoint and also had A. fib with RVR with heart rates in the 100 to 1:30 range. He was given IV Cardizem 10 with a drip at 5 and heart rates in the 90s to 100s. Currently he denies any chest pain or pressure. He remains on BiPAP however this is attempting to be weaned today. Anticoagulation is still on hold per orthopedic surgery. Chest x-ray showing cardiomegaly with pulmonary vascular congestion. He did receive IV Lasix yesterday with approximately 1500 mL output. Creatinine remains stable with potassium of 3.6. 05/21 Seen and examined. Has been diuresed and improved SOB. No chest pain or pressure. Cr stable. 05/22 patient seen and examined. Patient remains on IV Lasix. Patient cleared to restart anticoagulation per ortho. Having significant back pain. 05/23 Patient is still having significant back pain. Denies any chest pain or pressure. 05/24 He is still having a significant amount of pain. Percocets have been changed to be scheduled for better pain control. Heart rates are [id number]. PHYSICAL EXAMINATION Vital signs reviewed. CONSTITUTIONAL: No apparent distress. HEENT: Head is normocephalic. Pupils are equal, round. Sclerae anicteric. Mucous membranes of the mouth are moist. No JVD. No carotid bruit. CHEST EXAMINATION: Lungs are clear to auscultation. No chest wall tenderness is noted on palpation or with deep breathing. HEART EXAMINATION: Irregular rate and rhythm. S1, S2 heard. No murmurs, gallops or rub. ABDOMEN: Soft, nontender. Positive bowel sounds. EXTREMITIES: 2+ peripheral pulses, trace lower extremity edema and no calf tenderness. NEUROLOGIC EXAMINATION: Patient is awake, alert and oriented x3. ASSESSMENT Acute on chronic diastolic heart failure Acute on chronic respiratory failure mainly related to heart failure as well as component of COPD Persistent atrial fibrillation with RVR Hypertension Hyperlipidemia Diabetes mellitus type 2 Status post lumbar surgery 05/19 PLAN Continue with anticoagulation. Continue with oral Lasix. Pain is not well controlled. With current regimen. He is planning for rehab next week. Cardiology to sign off please call with any questions or concerns. Follow-up in office in 1-2 weeks. Patient seen and examined in rounds with Dr. Kim plan of care agreed upon. Objective - Vital Signs Vital signs: Vital Signs Temp 97.7 F 05/24/24 08:00 Pulse 90 05/24/24 08:00 Resp 18 05/24/24 08:00 BP 131/67 05/24/24 08:00 Pulse Ox 94 L 05/24/24 08:00 FiO2 40 05/21/24 01:08 Intake & Output 05/23/24 05/24/24 05/24/24 18:59 06:59 18:59 Intake Total 18 118 Output Total 1280 Balance 18 -1162 Intake: IV 18 Invasive Line 7 18 Oral 118 Output: Urine 1280 Other: Voiding Method Toilet Urinal ABP, PAP, CO, CI - Last Documented Arterial Blood Pressure 115/77 - Labs CBC & Chem 7: 05/23/24 05:45 05/24/24 06:57 Labs: Abnormal Lab Results - Last 24 Hours (Table) 05/23/24 05/23/24 05/24/24 Range/Units 16:36 20:20 05:58 Creatinine (0.66-1.25) mg/dL POC Glucose (mg/dL) 182 H 129 H 145 H (70-110) mg/dL 05/24/24 05/24/24 Range/Units 06:57 11:16 Creatinine 0.51 L (0.66-1.25) mg/dL POC Glucose (mg/dL) 155 H (70-110) mg/dL
[2024-05-24 14:10] LABS: ALT 42 U/L (4-49); AST 43 U/L (17-59); Albumin 3.1 g/dL (3.5-5.0); Alkaline Phosphatase 140 U/L (38-126); Anion Gap 8 mmol/L; Blood Urea Nitrogen 12 mg/dL (9-20); Calcium 8.3 mg/dL (8.4-10.2); Carbon Dioxide 27 mmol/L (22-30); Chloride 96 mmol/L (98-107); Glucose 128 mg/dL (74-99); Potassium 3.1 mmol/L (3.5-5.1); Sodium 131 mmol/L (137-145); Total Bilirubin 2.2 mg/dL (0.2-1.3); Total Protein 5.3 g/dL (6.3-8.2)
[2024-05-24 16:03] LABS: Glucose,Whole Blood 149 mg/dL (70-110)
[2024-05-24 19:58] LABS: Glucose,Whole Blood 165 mg/dL (70-110)
[2024-05-25 05:54] LABS: Glucose,Whole Blood 157 mg/dL (70-110)
--- NOTE | 2024-05-25 06:54 | PN ---
PROGRESS NOTE 58-year-old white male. Waiting for rehab placement versus going home. He is status post lumbar surgery. His wound looks intact. He sat 94 on room air. I will have him on breathing treatment for COPD. Blood pressure 149/91. Sodium was little bit low. Give him some fluids overnight. Sodium was 132. We are going to recheck it today. I think he is a bit dehydrated. We will see what the CBC is today. Still pending. PT/OT. Possibly go home next day or 2. He looks pretty stable to me at this point. Prognosis guarded. MMODL / IJN: [id number] /
[2024-05-25 08:47] LABS: Basophils % (A) 0 %; Eosinophils # (A) 0.1 k/uL (0-0.7); Eosinophils % (A) 1 %; HCT 31.7 % (39.0-53.0); HGB 10.1 gm/dL (13.0-17.5); Hypochromasia Slight; Lymphocytes # (A) 0.8 k/uL (1.0-4.8); Lymphocytes % (A) 8 %; MCH 28.4 pg (25.0-35.0); MCV 88.8 fL (80.0-100.0); Mean Platelet Volume 8.3; Monocytes # (A) 0.8 k/uL (0-1.0); Monocytes % (A) 9 %; Neutrophils # (A) 7.8 k/uL (1.3-7.7); Neutrophils % (A) 79 %; Platelet Count 299 k/uL (150-450); RBC 3.57 m/uL (4.30-5.90); RDW 15.8 % (11.5-15.5); WBC 9.8 k/uL (3.8-10.6)
[2024-05-25 08:55] LABS: ALT 42 U/L (4-49); AST 40 U/L (17-59); African American GFR (CKD) >90 (>60 ml/min/1.73 sqM); Alkaline Phosphatase 169 U/L (38-126); Anion Gap 4 mmol/L; Blood Urea Nitrogen 12 mg/dL (9-20); Calcium 8.2 mg/dL (8.4-10.2); Carbon Dioxide 30 mmol/L (22-30); Chloride 98 mmol/L (98-107); Glucose 193 mg/dL (74-99); Non-African American GFR(CKD) >90 (>60 ml/min/1.73 sqM); Potassium 2.9 mmol/L (3.5-5.1); Sodium 132 mmol/L (137-145); Total Bilirubin 1.6 mg/dL (0.2-1.3); Total Protein 5.2 g/dL (6.3-8.2)
[2024-05-25] MEDS: VANCOMYCIN TROUGH DUE 1 EACH MISC MISCELLANE ONE (09:53)
[2024-05-25] MEDS ORDERED: Potassium Replacement Protocol 1 EACH MISC MISCELLANE PRN ×2 (10:12→17:46)
[2024-05-25] MEDS: POTASSIUM CHLORIDE ER 20 MEQ TAB.ER PO SCH ×3 (10:26→20:24)
[2024-05-25 11:35] LABS: Glucose,Whole Blood 151 mg/dL (70-110)
[2024-05-25 13:17] VITALS: BMI 38.7
--- NOTE | 2024-05-25 14:46 | P.PN ---
Subjective Progress Note Date: 05/25/24 Principal diagnosis: Status post [id number] posterior lateral decompression and fusion, multiple medical comorbidities Patient was evaluated today at bedside, he was visualized ambulating with the assistance of his walker. Patient is continue to improve. He feels that the pain is better controlled today with the current regimen. He has been trying to limit the use of the IV pain medication. We have discussed earlier the possibility of discharge to home versus subacute rehab. Currently has no headaches, lightheadedness, dizziness,chest pain, shortness of breath Objective - Vital Signs Vital signs: Vital Signs Temp 98.3 F 05/25/24 04:00 Pulse 100 05/25/24 11:25 Resp 18 05/25/24 11:10 BP 123/83 05/25/24 11:10 Pulse Ox 96 05/25/24 11:10 FiO2 40 05/21/24 01:08 Intake & Output 05/24/24 05/25/24 05/25/24 18:59 06:59 18:59 Intake Total 330 400 118 Output Total 850 Balance 330 -450 118 Weight 115.5 kg Intake: Oral 330 400 118 Output: Urine 850 Other: Voiding Method Toilet Urinal # Voids 2 2 # Bowel Movements 1 ABP, PAP, CO, CI - Last Documented Arterial Blood Pressure 115/77 - Exam Gen: AOx3, NAD VSS stable at this time Integument: Incision is well-healing, torsten are in good position and condition. He is having mild serosanguineous drainage from the distal aspect of the incision. 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 appreciated in the bilateral lower extremities with hip flexion, knee extension, knee flexion, 5/5 strength appreciated the bilateral lower extremities with plantarflexion, dorsiflexion, EHL, FHL Reflexes: 2/4 in all UE and LE Negative Philippe's bilaterally Negative clonus bilaterally - Labs CBC & Chem 7: 05/25/24 08:20 05/25/24 08:20 Labs: Abnormal Lab Results - Last 24 Hours (Table) 05/24/24 05/24/24 05/25/24 Range/Units 16:01 19:56 05:52 RBC (4.30-5.90) m/uL Hgb (13.0-17.5) gm/dL Hct (39.0-53.0) % RDW (11.5-15.5) % Neutrophils # (1.3-7.7) k/uL Lymphocytes # (1.0-4.8) k/uL Sodium (137-145) mmol/L Potassium (3.5-5.1) mmol/L Creatinine (0.66-1.25) mg/dL Glucose (74-99) mg/dL POC Glucose (mg/dL) 149 H 165 H 157 H (70-110) mg/dL Calcium (8.4-10.2) mg/dL Total Bilirubin (0.2-1.3) mg/dL Alkaline Phosphatase (38-126) U/L Total Protein (6.3-8.2) g/dL Albumin (3.5-5.0) g/dL 05/25/24 05/25/24 05/25/24 Range/Units 08:20 08:20 11:30 RBC 3.57 L (4.30-5.90) m/uL Hgb 10.1 L (13.0-17.5) gm/dL Hct 31.7 L (39.0-53.0) % RDW 15.8 H (11.5-15.5) % Neutrophils # 7.8 H (1.3-7.7) k/uL Lymphocytes # 0.8 L (1.0-4.8) k/uL Sodium 132 L (137-145) mmol/L Potassium 2.9 L (3.5-5.1) mmol/L Creatinine 0.55 L (0.66-1.25) mg/dL Glucose 193 H (74-99) mg/dL POC Glucose (mg/dL) 151 H (70-110) mg/dL Calcium 8.2 L (8.4-10.2) mg/dL Total Bilirubin 1.6 H (0.2-1.3) mg/dL Alkaline Phosphatase 169 H (38-126) U/L Total Protein 5.2 L (6.3-8.2) g/dL Albumin 3.0 L (3.5-5.0) g/dL Assessment and Plan Assessment: Postoperative day #6 status post [id number] posterior lateral decompression and fusion, bilateral SI joint fusion Multiple medical comorbidities Plan: Pain control, continue current regimen DVT prophylaxis, patient has resumed his Xarelto Wound care, continue to monitor. Continue to utilize ABDs and dressing changes as needed. LSO brace to be utilized when up and ambulating longer distances, for transferring purposes he does not need to wear No bending, lifting or twisting Weight-bear as tolerated, recommend use of walker at all times Continue with PT/OT Other medical specialty recommendations appreciated Discharge planning: Discharge to home with home health care on 05/26/2024 Time with Patient: Less than 30
[2024-05-25 16:28] LABS: Glucose,Whole Blood 208 mg/dL (70-110)
[2024-05-25 20:00] LABS: Glucose,Whole Blood 232 mg/dL (70-110)
--- NOTE | 2024-05-25 20:25 | P.PN ---
Subjective Progress Note Date: 05/25/24 Patient is a 58-year-old white male with past medical history significant for obstructive sleep apnea with home CPAP, COPD, ex tobacco smoker, marijuana smoker, atrial fibrillation with previous cardioversion, diabetes mellitus, hypertension, heart failure, and prior cervical level spine surgery. His [facility] care provider is Dr. Deuce Brito. Patient has been having issues with lower back pain with radiculopathy like symptoms. He was found to have severe L2-S1 spondylosis with stenosis. Patient was brought into the hospital yesterday for an elective L2-S1 posteriorlateral and interbody fusion and cage placement. Patient was extubated postoperatively and transferred to the intensive care unit. Postoperatively, he was noted to be lethargic and confused. Blood gases were drawn which showed a PaO2 of 156, pCO2 of 50, pH of 7.29. Patient was placed on BiPAP per my supervising physician recommendation. Current BiPAP settings are 12/5 with an FiO2 40%. Patient is generating tidal volumes between 400 and 500. Respiratory rate is in the mid 20s. He is in no respiratory distress. Chest x-ray postoperatively shows cardiomegaly with slight increased interstitial and perihilar densities. No consolidations or pleural effusions. Concerning for mild CHF exacerbation. Patient is known to have chronic diastolic heart failure. Most recent available echocardiogram from October, demonstrated preserved left ventricular ejection fraction of 50 to 55% as well as mild mitral regurgitation. He takes Lasix daily while at home. Also, has history of paroxysmal atrial fibrillation and is normally anticoagulated on Eliquis, this was stopped preoperatively for the procedure. He did go into atrial fibrillation with rapid ventricular response postoperatively. Was started on a Cardizem infusion which is currently infusing at 5 mg/h. Rate is better controlled in the low 100s. Blood pressure is normotensive. Patient is currently lying supine in bed. He is on BiPAP with above-mentioned settings. He is alert and answers my questions appropriately. He is complaint at the moment is his postsurgical back pain. He is receiving a combination of as needed Dilaudid and Ophiem's. Lower extremity strength is intact and he denies any weakness or numbness. He will be monitored in the intensive care unit. Progress note dated May 21, 2024. The patient is seen today in room 364. The patient is currently on room air. Is not receiving any IV fluids. The patient did use BiPAP last night, with settings of 12/5, and 40%. He used it during the evening, when he was sleeping. Currently, he has no distress. He denies any shortness of breath, cough, wheezing, chest tightness, or phlegm production. He also denies any chest pain or pressure. His primary care physician is Dr. Deuce Brito. Current labs today only include a creatinine of 0.64, glucose of 199. Chest x-ray from yesterday shows evidence of cardiomegaly, pulmonary vascular congestion. Progress note dated May 22, 2024. The patient is seen today in room 364. Is currently using oxygen, 2 L. No IV fluids. He did use a BiPAP device overnight, with settings of 12/6, and 40%. The patient is not having any shortness of breath. The patient's saturations likely dropped, and oxygen was applied. He denies any cough, wheezing, chest tightness, or phlegm production. Current labs include a creatinine of 0.59, and a glucose of 146. Progress note dated May 23, 2024. The patient is seen today in room 364. The patient not requiring any supplemental oxygen. The patient states he did not use the BiPAP device last night. Other than pain, the patient is doing very well. Current labs include a white count of 9.8, hemoglobin 10.1, hematocrit 33.1, and a normal platelet count. Sodium 132, potassium 3, chloride 94, CO2 33, BUN 15, creatinine 0.62. Glucose is 120. Albumin is 3.2. No radiographs to report on. Progress note dated May 24, 2024. The patient was seen in room 364. Currently he is on room air. He did not use BiPAP last night. He is not receiving any IV fluids. His pain is much better controlled. He denies any shortness of breath, cough, wheezing, chest tightness, phlegm production, chest pain or pressure, or any GI issues. Labs today include a creatinine of 0.51. 05/25/2024, the patient is being seen for a follow-up. The patient is calm and comfortable. Denies having any specific complaints. The patient is postop day #6 following his lumbar spine surgery and surgery was done for severe L2-S1 spondylosis and stenosis. The patient had laminectomy and fusion and cage placement. The patient is also known to have COPD. He developed an acute on top of chronic hypoxic and hypercapnic respiratory failure treated with BiPAP and it was stopped about the patient also has a component of CHF. The patient is known to have advanced COPD. Been followed up by Dr. Marino on outpatient basis. He has been maintained on budesonide nebulized treatments [id number] and albuterol chest on x-ray basis. He is also maintained on O2 on outpatient basis. He is an ex-smoker. He is a marijuana smoker. He has chronic atrial fibrillation previous cardioversion and patient has diabetes mellitus hypertension and has comorbid conditions. He is currently off the BiPA P and the patient is currently on room air oxygen with a pulse ox ranging between 92 to 96%. Remains on DuoNeb that was treatments on the clock. He is on a combination performance of Pulmicort twice a day. He is on anticoagulation with Xarelto. He was also given IV antibiotics and the patient is currently taking Bactrim and vancomycin. He is ambulating with the assistance of a walker. He is looking into possible discharge to rehabilitation. Objective - Vital Signs Vital signs: Vital Signs Temp 98.3 F 05/25/24 04:00 Pulse 100 05/25/24 11:25 Resp 18 05/25/24 11:10 BP 123/83 05/25/24 11:10 Pulse Ox 96 05/25/24 11:10 FiO2 40 05/21/24 01:08 Intake & Output 05/24/24 05/25/24 05/25/24 18:59 06:59 18:59 Intake Total 330 400 118 Output Total 850 Balance 330 -450 118 Intake: Oral 330 400 118 Output: Urine 850 Other: Voiding Method Toilet Urinal # Voids 2 2 # Bowel Movements 1 ABP, PAP, CO, CI - Last Documented Arterial Blood Pressure 115/77 - Exam No acute distress, oriented 3. Currently on room air. Saturations are 95 %. The patient is currently on room air oxygen. HEENT examination is grossly unremarkable. Mucous membranes are moist. No oral lesions. Neck supple. Full range of motion. No adenopathy thyromegaly or neck vein distention. Cardiovascular examination reveals regular rhythm rate. S1-S2 normal. No S3 or S4. No discernible murmur noted. Lungs reveal mostly clear breath sounds. Minimal bilateral rhonchi. No wheezes. No crackles. Breath sounds equal bilaterally. Abdomen soft bowel sounds are heard. No masses or tenderness. Extremities are intact. No cyanosis clubbing or edema. Skin is without rash or lesion. Surgical site over the lumbar area is dry clean and intact. Neurologic examination is brief but nonfocal. Neurologically, the patient is awake and alert and the patient does not have any focal neurological deficit. Cranial nerves are essentially intact. - Labs CBC & Chem 7: 05/25/24 08:20 05/25/24 17:07 Labs: Abnormal Lab Results - Last 24 Hours (Table) 05/24/24 05/24/24 05/24/24 Range/Units 06:57 16:01 19:56 RBC (4.30-5.90) m/uL Hgb (13.0-17.5) gm/dL Hct (39.0-53.0) % RDW (11.5-15.5) % Neutrophils # (1.3-7.7) k/uL Lymphocytes # (1.0-4.8) k/uL Sodium 131 L (137-145) mmol/L Potassium 3.1 L (3.5-5.1) mmol/L Chloride 96 L (98-107) mmol/L Creatinine (0.66-1.25) mg/dL Glucose 128 H (74-99) mg/dL POC Glucose (mg/dL) 149 H 165 H (70-110) mg/dL Calcium 8.3 L (8.4-10.2) mg/dL Total Bilirubin 2.2 H (0.2-1.3) mg/dL Alkaline Phosphatase 140 H (38-126) U/L Total Protein 5.3 L (6.3-8.2) g/dL Albumin 3.1 L (3.5-5.0) g/dL 05/25/24 05/25/24 05/25/24 Range/Units 05:52 08:20 08:20 RBC 3.57 L (4.30-5.90) m/uL Hgb 10.1 L (13.0-17.5) gm/dL Hct 31.7 L (39.0-53.0) % RDW 15.8 H (11.5-15.5) % Neutrophils # 7.8 H (1.3-7.7) k/uL Lymphocytes # 0.8 L (1.0-4.8) k/uL Sodium 132 L (137-145) mmol/L Potassium 2.9 L (3.5-5.1) mmol/L Chloride (98-107) mmol/L Creatinine 0.55 L (0.66-1.25) mg/dL Glucose 193 H (74-99) mg/dL POC Glucose (mg/dL) 157 H (70-110) mg/dL Calcium 8.2 L (8.4-10.2) mg/dL Total Bilirubin 1.6 H (0.2-1.3) mg/dL Alkaline Phosphatase 169 H (38-126) U/L Total Protein 5.2 L (6.3-8.2) g/dL Albumin 3.0 L (3.5-5.0) g/dL 05/25/24 Range/Units 11:30 RBC (4.30-5.90) m/uL Hgb (13.0-17.5) gm/dL Hct (39.0-53.0) % RDW (11.5-15.5) % Neutrophils # (1.3-7.7) k/uL Lymphocytes # (1.0-4.8) k/uL Sodium (137-145) mmol/L Potassium (3.5-5.1) mmol/L Chloride (98-107) mmol/L Creatinine (0.66-1.25) mg/dL Glucose (74-99) mg/dL POC Glucose (mg/dL) 151 H (70-110) mg/dL Calcium (8.4-10.2) mg/dL Total Bilirubin (0.2-1.3) mg/dL Alkaline Phosphatase (38-126) U/L Total Protein (6.3-8.2) g/dL Albumin (3.5-5.0) g/dL Assessment and Plan Plan: Severe L2-S1 spondylosis and stenosis status postoperative day # 6 following an L2-S1 posterior lateral and interbody fusion and cage placement. Acute hypoxemic and hypercapnic respiratory failure, currently on BiPAP, likely secondary to a combination of medication effect and possible a mild exacerbation of diastolic congestive heart failure. Acute on top of chronic hypercapnic respiratory failure with hypercapnic encephalopathy, improved. Atrial fibrillation with rapid ventricular response. Current rate is controlled and the patient is on anticoagulation. History of obstructive sleep apnea. Chronic obstructive pulmonary disease. The patient has been followed up with Dr. 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 Former tobacco smoker. Marijuana smoker. History of hypertension. History of diabetes mellitus. History of heart failure with preserved ejection fraction. History of prior C2-T2 decompression and fusion. Plan: Titrate oxygen flow to maintain saturation above 90%, currently on 2 L Continue DuoNeb nebulized treatments [id number] Continue budesonide and Perforomist nebulized treatments twice a day Continue Lasix 40 mg p.o. daily Continue anticoagulation with Xarelto Increase mobility and the patient is ambulating with the help of a walker. Spine surgery is on the case and will continue to follow.
--- NOTE | 2024-05-26 00:52 | PN ---
PROGRESS NOTE SUBJECTIVE: This is a 58-year-old white male status post lumbar stenosis surgery. His sodium was almost back to normal. His potassium was normal. He is breathing better. He is on his breathing treatments, wears oxygen at night. OBJECTIVE: CARDIOVASCULAR: S1, S2. LUNGS: Clear. GI: Soft. Incision intact. No signs of bleeding. Possible discharge home tomorrow. Consults. Vital signs are reviewed. Continue PT OT at home. His hemoglobin is 10.1. He has acute on chronic anemia, hyponatremia, hypokalemia. Increase the potassium by mouth, potassium in the morning prior to going home. Sugars have been 100 to 200s. Appears stable. Please see further orders. MMODL / IJN: [id number] /
[2024-05-26 05:41] LABS: Glucose,Whole Blood 158 mg/dL (70-110)
[2024-05-26 10:17] VITALS: RESP 18
[2024-05-26 11:11] LABS: Glucose,Whole Blood 173 mg/dL (70-110)
[2024-05-26 12:18] VITALS: BP 142/90; PULSE 120; TEMP 98.4
[2024-05-26 12:46] LABS: ALT 48 U/L (4-49); African American GFR (CKD) >90 (>60 ml/min/1.73 sqM); Albumin 3.1 g/dL (3.5-5.0); Alkaline Phosphatase 184 U/L (38-126); Blood Urea Nitrogen 12 mg/dL (9-20); Calcium 8.6 mg/dL (8.4-10.2); Carbon Dioxide 28 mmol/L (22-30); Chloride 90 mmol/L (98-107); Glucose 138 mg/dL (74-99); Non-African American GFR(CKD) >90 (>60 ml/min/1.73 sqM); Total Bilirubin 1.3 mg/dL (0.2-1.3); Total Protein 5.3 g/dL (6.3-8.2)
[2024-05-26 12:52] LABS: Basophils % (A) 0 %; Eosinophils # (A) 0.1 k/uL (0-0.7); Eosinophils % (A) 1 %; HCT 31.2 % (39.0-53.0); HGB 9.8 gm/dL (13.0-17.5); Hypochromasia Slight; Lymphocytes % (A) 10 %; MCH 28.5 pg (25.0-35.0); MCHC 31.6 g/dL (31.0-37.0); MCV 90.2 fL (80.0-100.0); Mean Platelet Volume 7.6; Monocytes # (A) 0.8 k/uL (0-1.0); Monocytes % (A) 8 %; Neutrophils # (A) 7.8 k/uL (1.3-7.7); Neutrophils % (A) 78 %; Platelet Count 426 k/uL (150-450); RBC 3.46 m/uL (4.30-5.90); RDW 15.8 % (11.5-15.5)
--- NOTE | 2024-05-26 13:03 | P.PN ---
Subjective Progress Note Date: 05/26/24 Principal diagnosis: Status post [id number] posterior lateral decompression and fusion, multiple medical comorbidities Patient was evaluated today at bedside, he was visualized ambulating with the assistance of his walker. Patient is continue to improve. He feels that the pain is better controlled today with the current regimen. Currently has no headaches, lightheadedness, dizziness,chest pain, shortness of breath Objective - Vital Signs Vital signs: Vital Signs Temp 98.4 F 05/26/24 12:00 Pulse 120 H 05/26/24 12:00 Resp 18 05/26/24 12:00 BP 142/90 05/26/24 12:00 Pulse Ox 95 05/26/24 12:00 FiO2 40 05/21/24 01:08 Intake & Output 05/25/24 05/26/24 05/26/24 18:59 06:59 18:59 Intake Total 118 240 898 Output Total 250 Balance -132 240 898 Weight 115.5 kg 120.6 kg Intake: Oral 118 240 898 Output: Urine 250 Other: Voiding Method Toilet Urinal # Voids 1 # Bowel Movements 1 3 ABP, PAP, CO, CI - Last Documented Arterial Blood Pressure 115/77 - Exam Gen: AOx3, NAD VSS stable at this time Integument: Incision is well-healing, torsten are in good position and condition. He is having mild serosanguineous drainage from the distal aspect of the incision. 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 strength appreciated in the bilateral lower extremities with hip flexion, k nee extension, knee flexion, 5/5 strength appreciated the bilateral lower extremities with plantarflexion, dorsiflexion, EHL, FHL Reflexes: 2/4 in all UE and LE Negative Philippe's bilaterally Negative clonus bilaterally - Labs CBC & Chem 7: 05/26/24 11:55 05/25/24 17:07 Labs: Abnormal Lab Results - Last 24 Hours (Table) 05/25/24 05/25/24 05/25/24 Range/Units 16:27 17:07 19:59 RBC (4.30-5.90) m/uL Hgb (13.0-17.5) gm/dL Hct (39.0-53.0) % RDW (11.5-15.5) % Potassium 3.2 L (3.5-5.1) mmol/L POC Glucose (mg/dL) 208 H 232 H (70-110) mg/dL 05/26/24 05/26/24 05/26/24 Range/Units 05:39 11:09 11:55 RBC 3.46 L (4.30-5.90) m/uL Hgb 9.8 L (13.0-17.5) gm/dL Hct 31.2 L (39.0-53.0) % RDW 15.8 H (11.5-15.5) % Potassium (3.5-5.1) mmol/L POC Glucose (mg/dL) 158 H 173 H (70-110) mg/dL Assessment and Plan Assessment: Postoperative day #7 status post [id number] posterior lateral decompression and fusion, bilateral SI joint fusion Multiple medical comorbidities Plan: Pain control, plan for dc on percocet 7.5mg/325mg. He has gabapentin at home. We will also utilize Flexeril 10 mg DVT prophylaxis, patient has resumed his Xarelto Wound care, continue to monitor. Continue to utilize ABDs and dressing changes as needed. LSO brace to be utilized when up and ambulating longer distances, for transferring purposes he does not need to wear No bending, lifting or twisting Weight-bear as tolerated, recommend use of walker at all times Continue with PT/OT Other medical specialty recommendations appreciated Discharge planning: stable for discharge home today Time with Patient: Less than 30
--- NOTE | 2024-05-26 13:06 | P.PN ---
Subjective Progress Note Date: 05/26/24 Patient is a 58-year-old white male with past medical history significant for obstructive sleep apnea with home CPAP, COPD, ex tobacco smoker, marijuana smoker, atrial fibrillation with previous cardioversion, diabetes mellitus, hypertension, heart failure, and prior cervical level spine surgery. [facility] provider is Dr. Deuce Brito. Patient has been having issues with lower back pain with radiculopathy like symptoms. He was found to have severe L2-S1 spondylosis with stenosis. Patient was brought into the hospital yesterday for an elective L2-S1 posteriorlateral and interbody fusion and cage placement. Patient was extubated postoperatively and transferred to the intensive care unit. Postoperatively, he was noted to be lethargic and confused. Blood gases were drawn which showed a PaO2 of 156, pCO2 of 50, pH of 7.29. Patient was placed on BiPAP per my supervising physician recommendation. Current BiPAP settings are 12/5 with an FiO2 40%. Patient is generating tidal volumes between 400 and 500. Respiratory rate is in the mid 20s. He is in no respiratory distress. Chest x-ray postoperatively shows cardiomegaly with slight increased interstitial and perihilar densities. No consolidations or pleural effusions. Concerning for mild CHF exacerbation. Patient is known to have chronic diastolic heart failure. Most recent available echocardiogram from October, demonstrated preserved left ventricular ejection fraction of 50 to 55% as well as mild mitral regurgitation. He takes Lasix daily while at home. Also, has history of paroxysmal atrial fibrillation and is normally anticoagulated on Eliquis, this was stopped preoperatively for the procedure. He did go into atrial fibrillation with rapid ventricular response postoperatively. Was started on a Cardizem infusion which is currently infusing at 5 mg/h. Rate is better controlled in the low 100s. Blood pressure is normotensive. Patient is currently lying supine in bed. He is on BiPAP with above-mentioned settings. He is alert and answers my questions appropriately. He is complaint at the moment is his postsurgical back pain. He is receiving a combination of as needed Dilaudid and Itmann's. Lower extremity strength is intact and he denies any weakness or numbness. He will be monitored in the intensive care unit. Progress note dated May 21, 2024. The patient is seen today in room 364. The patient is currently on room air. Is not receiving any IV fluids. The patient did use BiPAP last night, with settings of 12/5, and 40%. He used it during the evening, when he was sleeping. Currently, he has no distress. He denies any shortness of breath, cough, wheezing, chest tightness, or phlegm production. He also denies any chest pain or pressure. His primary care physician is Dr. Deuce Brito. Current labs today only include a creatinine of 0.64, glucose of 199. Chest x-ray from yesterday shows evidence of cardiomegaly, pulmonary vascular congestion. Progress note dated May 22, 2024. The patient is seen today in room 364. Is currently using oxygen, 2 L. No IV fluids. He did use a BiPAP device overnight, with settings of 12/6, and 40%. The patient is not having any shortness of breath. The patient's saturations likely dropped, and oxygen was applied. He denies any cough, wheezing, chest tightness, or phlegm production. Current labs include a creatinine of 0.59, and a glucose of 146. Progress note dated May 23, 2024. The patient is seen today in room 364. The patient not requiring any supplemental oxygen. The patient states he did not use the BiPAP device last night. Other than pain, the patient is doing very well. Current labs include a white count of 9.8, hemoglobin 10.1, hematocrit 33.1, and a normal platelet count. Sodium 132, potassium 3, chloride 94, CO2 33, BUN 15, creatinine 0.62. Glucose is 120. Albumin is 3.2. No radiographs to report on. Progress note dated May 24, 2024. The patient was seen in room 364. Currently he is on room air. He did not use BiPAP last night. He is not receiving any IV fluids. His pain is much better controlled. He denies any shortness of breath, cough, wheezing, chest tightness, phlegm production, chest pain or pressure, or any GI issues. Labs today include a creatinine of 0.51. 05/25/2024, the patient is being seen for a follow-up. The patient is calm and comfortable. Denies having any specific complaints. The patient is postop day #6 following his lumbar spine surgery and surgery was done for severe L2-S1 spondylosis and stenosis. The patient had laminectomy and fusion and cage placement. The patient is also known to have COPD. He developed an acute on top of chronic hypoxic and hypercapnic respiratory failure treated with BiPAP and it was stopped about the patient also has a component of CHF. The patient is known to have advanced COPD. Been followed up by Dr. Marino on outpatient basis. He has been maintained on budesonide nebulized treatments [id number] and albuterol chest on x-ray basis. He is also maintained on O2 on outpatient basis. He is an ex-smoker. He is a marijuana smoker. He has chronic atrial fibrillation previous cardioversion and patient has diabetes mellitus hypertension and has comorbid conditions. He is currently off the BiPA P and the patient is currently on room air oxygen with a pulse ox ranging between 92 to 96%. Remains on DuoNeb that was treatments on the clock. He is on a combination performance of Pulmicort twice a day. He is on anticoagulation with Xarelto. He was also given IV antibiotics and the patient is currently taking Bactrim and vancomycin. He is ambulating with the assistance of a walker. He is looking into possible discharge to rehabilitation. Vascular on 05/26/2024, the patient is ambulating with the help of a walker. posterior lateral decompression and fusion. Is calm and comfortable. No respiratory distress. ElectrolytesFrom yesterday were all stable. The hemoglobin is at 9.8 with a white cell count of 10.The patient is currently on room air oxygen with a pulse ox of 95%. He is utilizing DuoNeb nebulized treatments [id number].He is on oral Lasix.He is on anticoagulation with Xarelto.Pain is under adequate control the patient on lactated Ringer at rate of 20 cc an hour. He has a nicotine patch. No altered mentation. No chest pain. No shortness of breath. Objective - Vital Signs Vital signs: Vital Signs Temp 98.3 F 05/26/24 08:45 Pulse 110 H 05/26/24 08:45 Resp 18 05/26/24 08:45 BP 120/80 05/26/24 08:45 Pulse Ox 95 05/26/24 08:45 FiO2 40 05/21/24 01:08 Intake & Output 05/25/24 05/26/24 05/26/24 18:59 06:59 18:59 Intake Total 118 240 898 Output Total 250 Balance -132 240 898 Weight 115.5 kg 120.6 kg Intake: Oral 118 240 898 Output: Urine 250 Other: Voiding Method Toilet Urinal # Voids 1 # Bowel Movements 1 4 ABP, PAP, CO, CI - Last Documented Arterial Blood Pressure 115/77 - Exam No acute distress, oriented 3. Currently on room air. Saturations are 95 %. The patient is currently on room air oxygen. HEENT examination is grossly unremarkable. Mucous membranes are moist. No oral lesions. Neck supple. Full range of motion. No adenopathy thyromegaly or neck vein dist ention. Cardiovascular examination reveals regular rhythm rate. S1-S2 normal. No S3 or S4. No discernible murmur noted. Lungs reveal mostly clear breath sounds. Minimal bilateral rhonchi. No wheezes. No crackles. Breath sounds equal bilaterally. Abdomen soft bowel sounds are heard. No masses or tenderness. Extremities are intact. No cyanosis clubbing or edema. Skin is without rash or lesion. Surgical site over the lumbar area is dry clean and intact. Neurologic examination is brief but nonfocal. Neurologically, the patient is awake and alert and the patient does not have any focal neurological deficit. Cranial nerves are essentially intact. - Labs CBC & Chem 7: 05/26/24 11:55 05/25/24 17:07 Labs: Abnormal Lab Results - Last 24 Hours (Table) 05/25/24 05/25/24 05/25/24 Range/Units 11:30 16:27 17:07 Potassium 3.2 L (3.5-5.1) mmol/L POC Glucose (mg/dL) 151 H 208 H (70-110) mg/dL 05/25/24 05/26/24 Range/Units 19:59 05:39 Potassium (3.5-5.1) mmol/L POC Glucose (mg/dL) 232 H 158 H (70-110) mg/dL Assessment and Plan Plan: Severe L2-S1 spondylosis and stenosis status postoperative day # 7 following an L2-S1 posterior lateral and interbody fusion and cage placement. Acute hypoxemic and hypercapnic respiratory failure, currently on BiPAP, likely secondary to a combination of medication effect and possible a mild exacerbation of diastolic congestive heart failure. The patient is currently on room air ox ygen. No significant respiratory distress. Acute on top of chronic hypercapnic respiratory failure with hypercapnic encephalopathy, improved. Atrial fibrillation with rapid ventricular response. Current rate is controlled and the patient is on anticoagulation. History of obstructive sleep apnea. Chronic obstructive pulmonary disease. The patient has been followed up with Dr. 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 Former tobacco smoker. Marijuana smoker. History of hypertension. History of diabetes mellitus. History of heart failure with preserved ejection fraction. History of prior C2-T2 decompression and fusion. Plan: Titrate oxygen flow to maintain saturation above 90%, currently on 2 L, currently on room air oxygen Continue DuoNeb nebulized treatments [id number] Continue budesonide and Perforomist nebulized treatments twice a day Continue Lasix 40 mg p.o. daily Continue anticoagulation with Xarelto Increase mobility and the patient is ambulating with the help of a walker. Spine surgery is on the case and will continue to follow. Discharge planning is in progress
[2024-05-26 13:44] LABS: Anion Gap 16 mmol/L; Potassium 3.6 mmol/L (3.5-5.1); Sodium 134 mmol/L (137-145)
[2024-05-26 14:52] LABS: Polychromasia Present
--- NOTE | 2024-05-26 15:29 | P.DS ---
Providers Date of admission: 05/19/24 19:10 Expected date of discharge: 05/26/24 Attending physician: Kenny Jeffrey DO Consults: 05/19/24 12:00 Consult Physician Routine Consulting Provider: Deuce Brito Reason/Comments: Medical Management s/p revision L2-S1 decompr fusion Do you want consulting provider notified?: Yes 05/19/24 20:10 Consult Physician Routine Consulting Provider: Pedro Lopez Reason/Comments: Icu management Do you want consulting provider notified?: Already Contacted Primary care physician: Deuce Brito [facility] Hospital Course: Date of admission: 05/19/2024 Date of discharge: 05/26/2024 Admission diagnosis: status post [id number] decompression and fusion, open bilateral SI joint fusions bilaterally Discharge diagnosis: same Attending physician: Dr. Jeffrey Surgical procedures: [id number] posterior lateral decompression and fusion, bilateral SI joint fusions Brief history: Patient is a 58-year-old male with a history of chronic low back symptoms, bilateral lower extremity weakness with radiculopathy, multilevel lumbar spondylosis with varying degrees of neuroforaminal and central canal stenosis. At this point patient has failed conservative treatment measures and has opted to proceed with a elective [id number] posterior lateral decompression and fusion, bilateral open SI joint fusions. Hospital course: Details of patient's surgery can be found in operative report. Patient tolerated the procedure well and was subsequently transported to orthopedic floor. Patient's orthopeidc and medical care was provided daily. Patient had daily laboratory tests performed for evaluation of overall blood counts. Patient had daily physical therapy to include strengthening range of motion as well as education with walker ambulation. Patient was treated with Xarelto for their postoperative DVT prophylaxis during their inpatient stay. Patient was noted to have a relatively uneventful postoperative course. Patient reported satisfactory pain control with oral pain medications by postoperative day 5. Patient showed satisfactory progress with physical therapy. Patient moved steadily through the program and had no difficulty meeting the goals by postoperative day 7. Given patient's otherwise satisfactory course and having met physical therapy goals, plan is to discharge patient home on postoperative day 7. Discharge condition/disposition: Patient will be discharged home in stable condition. Discharge medications: Instructions are given on resumption of patient's normal daily medications per primary care recommendation, in addition patient will be prescribed Percocet 7.5 mg / 325 mg, Flexeril 10 mg, Duricef 500 mg. Spine Discharge and Recovery Instructions Medications: See medication list All medication refills should be obtained through your primary care doctor or your clinic spine surgeon. Please discuss prescription refills at your follow up appointment. Do not call the hospital for medication refills. Dressing: Leave your dressing in place for a total of 5 days post operatively. Then you may remove your dressing and leave open to air. Keep the area clean and if not able to keep area clean, then cover with sterile gauze and tape. Showering: You may shower 3 days after your procedure allowing soap and water to run over incision. Do not scrub. Do not soak. Blot dry. Follow up: Please confirm a follow up appointment with your surgeon 3 weeks post operatively. Please make an appointment to follow up with your PCP in 1-2 weeks after surgery for evaluation `3 phase, 3-week plan POST OP WEEKS 1-3 1. Lifting/carrying/pushing/pulling limited to less than 5 pounds. 2. Do not sit for longer than 15 minutes at one time. Get up and walk around. Prolonged sitting is NOT advised. If you lay down, see if you can tolerate laying down on you front (belly side) 3. Walk for periods of 15 minutes = 1 mile but no longer; do it multiple times times each day. 4. Ice your low back after activity. POST OP WEEKS 3-6 1. Lifting limited to less than 20 pounds. 2. Do not sit for longer than 30 minutes at a time. Frequently change positions. Use a sit-to stand workstation or take frequent breaks from sitting if you have returned to work. 3. Walk for 30 minutes each day. If possible, do these three or more times a day POST OP WEEKS 6+ At your 6-week appointment we will give you a physical therapy referral to focus on a core stabilization and strengthening program. You should also work on leg & buttock strengthening, hamstring & quadriceps stretching, and continue a low impact aerobic activity program such as swimming, walking, or riding a stationary bicycle. During the initial 6 weeks after your surgery, you are at the highest risk of re-injuring your spine. You should generally avoid BLTs (bending, lifting and twisting combination motions) and follow the above guidelines to reduce the chance of reinjury. You can anticipate post op appointments in our office at approximately 3 weeks and 6 weeks after your surgery. INCISION CARE: If your incision is not draining you do NOT need to cover it with a dressing. Keep your incision clean, dry and intact. In most cases, we apply skin glue, torsten or sutures to the incision at the time of surgery. This will be like a crust or have the appearance of a scab and will fall off in time on its own. The stitches or torsten need to be removed at 3 weeks post op appointment. You may begin to shower 3 days after surgery (this allows the glue to holden well). However, please avoid scrubbing the incision site or peeling off any of the skin glue. This will ensure optimal healing of your incision. Also, during this time avoid soaking the incision area in water - this includes swimming pools, hot tubs or baths. No ointments, lotions or oils on the incision until your surgeon allows. Leave torsten, sutures or glue in place. Neurological dysfunction that comes on suddenly can also be a sign of a stroke. Below some common symptoms of a stroke are listed: B - balance difficulty such as sudden onset walking or leaning to one side - NEW E - eye problem such as sudden double vision or trouble seeing on one side - NEW F - Facial weakness or numbness on one side - NEW A - Arm or leg weakness or numbness on one side - NEW S - Slurred speech or difficulty with word finding - NEW T - Time is BRAIN! Call 911 as soon as you recognize these symptoms Diet: Consume a regular diet rich in vegetables and lean protein such as chicken or fish. You should consume in a ratio of approximately 20% fats|40% carbohydrates |40%protein. Vegetables, sweet potatoes, brown rice or quinoa are examples of good carbohydrates. Chips, white bread, cookies and sweets/sugar are examples of bad carbohydrates. Limit your bad carbs, go wild with good carbs. 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 (1) Get Active. Physical activity can help people lose weight, control high blood pressure and cholesterol, feel emotionally better, and sleep better. (2) Control Cholesterol. Avoid a diet high in saturated fat, trans fat, & cholesterol. Limit whole milk & cream, ice cream, butter, egg yolks, processed meats (like sausage and hot dogs), and fatty meats. Choose healthy foods that are low in saturated fat, trans fat and cholesterol which include: Fruits and vegetables, fiber rich grain products (like whole grain pasta and brown rice), lean meat such as chicken, fish, nuts, seeds, and legumes. (3) Eat Better. Eat small portions. Shop at the grocery with a list and do not stray from it. Tips for a healthy diet include: Limit sodium intake to less than 1500mg daily, avoid prepackaged, processed, and fast foods, choose a diet rich in fruits, vegetables, and whole grain, high fiber foods, and limit saturated & cholesterol in your diet. (4) Manage Blood Pressure. If you have high blood pressure, you should have a cuff at home so that you can check your blood pressure regularly. Be sure you have a good cuff. An arm one is generally better than a wrist one. Bring the cuff to a doctor's appointment to validate that the measurements that your cuff are taking are accurate. Take your blood pressure twice daily when you are sitting down and relaxing. Record the numbers in a log and bring this log with you to your doctors' appointments. (5) Lose Weight if your BMI is above 25. A healthy BMI is between 19-25. To calculate Your BMI, you may use a Standard BMI Calculator on the NIH BMI website: <www.nhlbi.nih.gov/guidelines/obesity/BMI/bmicalc.htm>. Weigh oneself daily. If you are overweight, set a goal to lose weight. A pound a week loss if needed is a good target. (6) Reduce Blood Sugar. Limit foods and liquids with "added sugars." (Added sugars include sucrose, fructose, glucose, maltose, dextrose, high fructose corn syrup, corn syrup, concentrated fruit juice and honey). (7) Stop Smoking. If you smoke, quitting smoking is one of the best things that you can do for your health. Smoking increases your risk of heart attack, stroke, and peripheral vascular disease, which is a build-up of plaque in your arteries. Please discard all the cigarettes and lighters in your house. Have a plan for what you will do when you have the urge to smoke. Direct and second- hand smoke shortens your life as well as the lives of your family, friends and others around you. For your health and the health of those around you, please consider quitting! Proper Bending Body Mechanics: Maintain a wide stance with one foot slightly in front of the other. Keep your back straight. Bend utilizing the strength in your hips and knees. Do not bend at the waist. Maintain the lifted object at your waist-level close to your body. Avoid lifting weight that causes immediately pain or pain anywhere in the body afterwards. Smoking/Nicotine If there was ever one thing that you could do to increase your overall health, decrease your risk of cardiovascular problems by about 39% the second you make the choice, it is to STOP SMOKING. Your body's most instant gratification is the second you stop smoking. We have all heard the studies, read the articles but it is true, smoking is extremely bad for your overall health, and moreover it is detrimental to your bone health. Nicotine, IN ANY FORM, kills bone cells, prevents your body from healing fractures, and significantly prolongs healing after surgery. In spine surgery specifically, it increases your risk of not healing your bones to create a fusion and increases your risk of having a revision surgery due to this up to 60%. I know it is hard. I know it feels impossible. But there are ways. Take control of your life. We are here to help you through it. And when you are ready, ask us and we can direct you to help if you desire. Use the START Plan to Quit Smoking (please visit the Helpguide.org website listed below for more information): S = Set a quit date. Choose a date within the next 2 weeks, so you have enough time to prepare without losing your motivation to quit. If you mainly smoke at work, quit on the weekend, so you have a few days to adjust to the change. T = Tell family, friends, and co-workers that you plan to quit. Let your friends and family in on your plan to quit smoking and tell them you need their support and encouragement to stop. Look for a quit alistair who wants to stop smoking as well. You can help each other get through the rough times. A = Anticipate and plan for the challenges you'll face while quitting. Most people who begin smoking again do so within the first 3 months. You can help yourself make it through by preparing ahead for common challenges, such as nicotine withdrawal and cigarette cravings. R = Remove cigarettes and other tobacco products from your home, car, and work. Throw away all your cigarettes (no emergency pack!), lighters, ashtrays, and matches. Wash your clothes and freshen up anything that smells like smoke. Shampoo your car, clean your drapes and carpet, and steam your furniture. T = Talk to your doctor about getting help to quit. Your doctor can prescribe medication to help with withdrawal and suggest other alternatives. If you can't see a doctor, you can get many products over the counter at your local pharmacy or grocery store, including the nicotine patch, nicotine lozenges, and nicotine gum. Resources for Quitting Smoking: <https://www.[place].gov/documents/[facility]/Quit_Tobacco_Resources_for_patients_313 480_7.pdf> Supplementation: Take recommended dosages of Vitamin D and Calcium to help fortify your bones and help them to heal. See your health maintenance packet for dosages and recommended levels. DVT/VTE prophylaxis: You will be given compression stockings from the hospital. Wear these daily for the first two weeks after surgery. You may take them off at night. You may be prescribed a medication to help thin your blood. Take this as directed. If you are not prescribed this medication, early and frequent ambulation has been shown to be the best prophylaxis to deep vein thrombosis and sequelae related to this event. Procedures: [id number] decompression and fusion, open bilateral SI joint fusion Patient Condition at Discharge: Good Plan - Discharge Summary Discharge Rx Participant: Yes New Discharge Prescriptions: New Cyclobenzaprine [Flexeril] 10 mg PO BID PRN #30 tab PRN Reason: Muscle Spasm cefaDROXiL [Duricef] 500 mg PO Q12HR 5 Days #10 cap oxyCODONE-APAP 7.5-325MG [Percocet 7.5-325 mg] 1 tab PO Q4HR PRN 7 Days #42 tab PRN Reason: Pain No Action buPROPion HCL [buPROPion HCL SR] 150 mg PO BID PARoxetine HCL [Paxil] 40 mg PO HS metFORMIN HCL [Glucophage] 500 mg PO BID Omeprazole [PriLOSEC] 40 mg PO DAILY HYDROcodone/APAP 10-325MG [[place] 10-325] 1 tab PO QID Montelukast [Singulair] 10 mg PO HS Dapagliflozin Propanediol [Farxiga] 10 mg PO DAILY #30 tab Rivaroxaban [Xarelto] 20 mg PO W/SUPPER #30 tab Doxycycline [Vibramycin] 100 mg PO BID Gabapentin 800 mg PO QID Atorvastatin [Lipitor] 40 mg PO HS Ipratropium Nebulized [Atrovent Nebulized 0.2 MG/ML] 0.5 mg INHALATION RT-QID Budesonide/Formoterol Fumarate [Symbicort 160-4.5 Mcg Inhaler] 2 puff INHALATION RT-BID Budesonide [Pulmicort] 1 mg INHALATION RT-BID Furosemide [Lasix] 40 mg PO DAILY #30 tab Discharge Medication List PARoxetine HCL [Paxil] 40 mg PO HS 12/21/19 [History] buPROPion HCL [buPROPion HCL SR] 150 mg PO BID 12/21/19 [History] metFORMIN HCL [Glucophage] 500 mg PO BID 12/21/19 [History] Gabapentin 800 mg PO QID 11/06/22 [History] Atorvastatin [Lipitor] 40 mg PO HS 03/01/23 [History] Budesonide [Pulmicort] 1 mg INHALATION RT-BID 11/18/23 [History] Budesonide/Formoterol Fumarate [Symbicort 160-4.5 Mcg Inhaler] 2 puff INHALATION RT-BID 11/18/23 [History] HYDROcodone/APAP 10-325MG [[place] 10-325] 1 tab PO QID 11/18/23 [History] Ipratropium Nebulized [Atrovent Nebulized 0.2 MG/ML] 0.5 mg INHALATION RT-QID 11/18/23 [History] Montelukast [Singulair] 10 mg PO HS 11/18/23 [History] Omeprazole [PriLOSEC] 40 mg PO DAILY 11/18/23 [History] Dapagliflozin Propanediol [Farxiga] 10 mg PO DAILY #30 tab 11/20/23 [Rx] Furosemide [Lasix] 40 mg PO DAILY #30 tab 11/20/23 [Rx] Rivaroxaban [Xarelto] 20 mg PO W/SUPPER #30 tab 11/20/23 [Rx] Doxycycline [Vibramycin] 100 mg PO BID 05/18/24 [History] Cyclobenzaprine [Flexeril] 10 mg PO BID PRN #30 tab 05/26/24 [Rx] cefaDROXiL [Duricef] 500 mg PO Q12HR 5 Days #10 cap 05/26/24 [Rx] oxyCODONE-APAP 7.5-325MG [Percocet 7.5-325 mg] 1 tab PO Q4HR PRN 7 Days #42 tab 05/26/24 [Rx] Follow up Appointment(s)/Referral(s): Kenny Jeffrey DO [Doctor of Osteopathic Medicine] - 2 Weeks (call office after 2pm or tomorrow to schedule an apppintment.) Patient Instructions/Handouts: Lumbar Spinal Fusion (DC) Activity/Diet/Wound Care/Special Instructions: Spine Discharge and Recovery Instructions Medications: See medication list All medication refills should be obtained through your primary care doctor or your clinic spine surgeon. Please discuss prescription refills at your follow up appointment. Do not call the hospital for medication refills. Dressing: Leave your dressing in place for a total of 5 days post operatively. Then you may remove your dressing and leave open to air. Keep the area clean and if not able to keep area clean, then cover with sterile gauze and tape. Showering: You may shower 3 days after your procedure allowing soap and water to run over incision. Do not scrub. Do not soak. Blot dry. Follow up: Please confirm a follow up appointment with your surgeon 3 weeks post operatively. Please make an appointment to follow up with your PCP in 1-2 weeks after surgery for evaluation `3 phase, 3-week plan POST OP WEEKS 1-3 1. Lifting/carrying/pushing/pulling limited to less than 5 pounds. 2. Do not sit for longer than 15 minutes at one time. Get up and walk around. Prolonged sitting is NOT advised. If you lay down, see if you can tolerate laying down on you front (belly side) 3. Walk for periods of 15 minutes = 1 mile but no longer; do it multiple times times each day. 4. Ice your low back after activity. POST OP WEEKS 3-6 1. Lifting limited to less than 20 pounds. 2. Do not sit for longer than 30 minutes at a time. Frequently change positions. Use a sit-to stand workstation or take frequent breaks from sitting if you have returned to work. 3. Walk for 30 minutes each day. If possible, do these three or more times a day POST OP WEEKS 6+ At your 6-week appointment we will give you a physical therapy referral to focus on a core stabilization and strengthening program. You should also work on leg & buttock strengthening, hamstring & quadriceps stretching, and continue a low impact aerobic activity program such as swimming, walking, or riding a stationary bicycle. During the initial 6 weeks after your surgery, you are at the highest risk of re-injuring your spine. You should generally avoid BLTs (bending, lifting and twisting combination motions) and follow the above guidelines to reduce the chance of reinjury. You can anticipate post op appointments in our office at approximately 3 weeks and 6 weeks after your surgery. INCISION CARE: If your incision is not draining you do NOT need to cover it with a dressing. Keep your incision clean, dry and intact. In most cases, we apply skin glue, torsten or sutures to the incision at the time of surgery. This will be like a crust or have the appearance of a scab and will fall off in time on its own. The stitches or torsten need to be removed at 3 weeks post op appointment. You may begin to shower 3 days after surgery (this allows the glue to holden well). However, please avoid scrubbing the incision site or peeling off any of the skin glue. This will ensure optimal healing of your incision. Also, during this time avoid soaking the incision area in water - this includes swimming pools, hot tubs or baths. No ointments, lotions or oils on the incision until your surgeon allows. Leave torsten, sutures or glue in place. Neurological dysfunction that comes on suddenly can also be a sign of a stroke. Below some common symptoms of a stroke are listed: B - balance difficulty such as sudden onset walking or leaning to one side - NEW E - eye problem such as sudden double vision or trouble seeing on one side - NEW F - Facial weakness or numbness on one side - NEW A - Arm or leg weakness or numbness on one side - NEW S - Slurred speech or difficulty with word finding - NEW T - Time is BRAIN! Call 911 as soon as you recognize these symptoms Diet: Consume a regular diet rich in vegetables and lean protein such as chicken or fish. You should consume in a ratio of approximately 20% fats|40% carbohydrates|40%protein. Vegetables, sweet potatoes, brown rice or quinoa are examples of good carbohydrates. Chips, white bread, cookies and sweets/sugar are examples of bad carbohydrates. Limit your bad carbs, go wild with good carbs. 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 (1) Get Active. Physical activity can help people lose weight, control high blood pressure and cholesterol, feel emotionally better, and sleep better. (2) Control Cholesterol. Avoid a diet high in saturated fat, trans fat, & cholesterol. Limit whole milk & cream, ice cream, butter, egg yolks, processed meats (like sausage and hot dogs), and fatty meats. Choose healthy foods that are low in saturated fat, trans fat and cholesterol which include: Fruits and vegetables, fiber rich grain products (like whole grain pasta and brown rice), lean meat such as chicken, fish, nuts, seeds, and legumes. (3) Eat Better. Eat small portions. Shop at the grocery with a list and do not stray from it. Tips for a healthy diet include: Limit sodium intake to less than 1500mg daily, avoid prepackaged, processed, and fast foods, choose a diet rich in fruits, vegetables, and whole grain, high fiber foods, and limit s aturated & cholesterol in your diet. (4) Manage Blood Pressure. If you have high blood pressure, you should have a cuff at home so that you can check your blood pressure regularly. Be sure you have a good cuff. An arm one is generally better than a wrist one. Bring the cuff to a doctor's appointment to validate that the measurements that your cuff are taking are accurate. Take your blood pressure twice daily when you are sitting down and relaxing. Record the numbers in a log and bring this log with you to your doctors' appointments. (5) Lose Weight if your BMI is above 25. A healthy BMI is between 19-25. To calculate Your BMI, you may use a Standard BMI Calculator on the NIH BMI website: <www.nhlbi.nih.gov/guidelines/obesity/BMI/bmicalc.htm>. Weigh oneself daily. If you are overweight, set a goal to lose weight. A pound a week loss if needed is a good target. (6) Reduce Blood Sugar. Limit foods and liquids with "added sugars." (Added sugars include sucrose, fructose, glucose, maltose, dextrose, high fructose corn syrup, corn syrup, concentrated fruit juice and honey). (7) Stop Smoking. If you smoke, quitting smoking is one of the best things that you can do for your health. Smoking increases your risk of heart attack, stroke, and peripheral vascular disease, which is a build-up of plaque in your arteries. Please discard all the cigarettes and lighters in your house. Have a plan for what you will do when you have the urge to smoke. Direct and second- hand smoke shortens your life as well as the lives of your family, friends and others around you. For your health and the health of those around you, please consider quitting! Proper Bending Body Mechanics: Maintain a wide stance with one foot slightly in front of the other. Keep your back straight. Bend utilizing the strength in your hips and knees. Do not bend at the waist. Maintain the lifted object at your waist-level close to your body. Avoid lifting weight that causes immediately pain or pain anywhere in the body afterwards. Smoking/Nicotine If there was ever one thing that you could do to increase your overall health, decrease your risk of cardiovascular problems by about 39% the second you make the choice, it is to STOP SMOKING. Your body's most instant gratification is the second you stop smoking. We have all heard the studies, read the articles but it is true, smoking is extremely bad for your overall health, and moreover it is detrimental to your bone health. Nicotine, IN ANY FORM, kills bone cells, prevents your body from healing fractures, and significantly prolongs healing after surgery. In spine surgery specifically, it increases your risk of not healing your bones to create a fusion and increases your risk of having a revision surgery due to this up to 60%. I know it is hard. I know it feels impossible. But there are ways. Take control of your life. We are here to help you through it. And when you are ready, ask us and we can direct you to help if you desire. Use the START Plan to Quit Smoking (please visit the [email or web address] website listed below for more information): S = Set a quit date. Choose a date within the next 2 weeks, so you have enough time to prepare without losing your motivation to quit. If you mainly smoke at work, quit on the weekend, so you have a few days to adjust to the change. T = Tell family, friends, and co-workers that you plan to quit. Let your friends and family in on your plan to quit smoking and tell them you n eed their support and encouragement to stop. Look for a quit alistair who wants to stop smoking as well. You can help each other get through the rough times. A = Anticipate and plan for the challenges you'll face while quitting. Most people who begin smoking again do so within the first 3 months. You can help yourself make it through by preparing ahead for common challenges, such as nicotine withdrawal and cigarette cravings. R = Remove cigarettes and other tobacco products from your home, car, and work. Throw away all your cigarettes (no emergency pack!), lighters, ashtrays, and matches. Wash your clothes and freshen up anything that smells like smoke. Shampoo your car, clean your drapes and carpet, and steam your furniture. T = Talk to your doctor about getting help to quit. Your doctor can prescribe medication to help with withdrawal and suggest other alternatives. If you can't see a doctor, you can get many products over the counter at your local pharmacy or grocery store, including the nicotine patch, nicotine lozenges, and nicotine gum. Resources for Quitting Smoking: <https://www.[place].gov/documents/[facility]/Quit_Tobacco_Resources_for_patients_313 480_7.pdf> Supplementation: Take recommended dosages of Vitamin D and Calcium to help fortify your bones and help them to heal. See your health maintenance packet for dosages and recommended levels. DVT/VTE prophylaxis: You will be given compression stockings from the hospital. Wear these daily for the first two weeks after surgery. You may take them off at night. You may be prescribed a medication to help thin your blood. Take this as directed. If you are not prescribed this medication, early and frequent ambulation has been shown to be the best prophylaxis to deep vein thrombosis and sequelae related to this event. Discharge Disposition: HOME WITH HOME HEALTH SERVICES
[2024-05-26 15:49] LABS: AST 46 U/L (17-59)
--- NOTE | 2024-05-26 22:48 | PN ---
PROGRESS NOTE SUBJECTIVE: This is a 58-year-old white male status post lumbar surgery. Pulse rate is 110 to 120, blood pressure is 120s to 140s over 70s, temperature 98.4. Sugars have been mid 100s, hemoglobin is 10.1. The patient's on-call doctor wants to be discharged home today. Waiting for order of electrolytes to be done and see sodium level. May have to add oral potassium supplementation. He continues to breathe better on his breathing treatments, wears oxygen at night. He is on potassium protocol, add K-Dur 20 mEq daily as he has low potassium and possibly increase his beta rylan for tachycardia. He apparently wants to go home today, we will see what doctor recommends. Continue on K- Dur 20 mEq b.i.d. at this time. PROGNOSIS: Guarded. MMODL / IJN: [id number] /
--- NOTE | 2024-05-27 15:47 | CDI ---
Documentation Clarification Form Date: 05/27/2024 03:34:30 PM From: Destiny Meier Phone: Admit Date: 05/19/2024 07:10:00 PM Patient Name: Kvng Molina Visit Number: [id number] Discharge Date: 05/26/2024 02:42:00 PM ATTENTION: The Clinical Documentation Specialists (CDI) and [facility] Coding Staff appreciate your assistance in clarifying documentation. Please respond to the clarification below the line at the bottom and electronically sign. The CDI & [facility] Coding staff will review the response and follow-up if needed. Please note: Queries are made part of the Legal Health Record. If you have any questions, please contact the author of this message via ITS. Dr. Deuce Brito Your patient has an abnormal lab value: glucoseof 199 per Progress Note 05/21. Please clarify if there is an additional diagnosis and/or clinical significance related to this value. History/Risk Factors: 58yo M, DMII, ACDHF, ACH/HRF, COPD, persistent A Fib, HTN, HLD, lumbar stenosis with neurogenic claudication, lumbosacral spondylosis with radiculopathy, facet arthroplasty, L & LS Clinical indicators: Glucose: 05/20 130-184 05/21 162-199 05/22 146-192 Treatment: Insulin Aspart 0 unit; Insulin Aspart (Novolog) 100 Unit/Ml Vial SQ 2 unit Home Meds: Metformin HCL [Glucophage] 500 mg PO BID Is there an additional diagnosis and/or clinical significance related to the above lab result/information? [ ] Diabetes Mellitus Type II with hyperglycemia [ ] No additional diagnosis/Not clinically significant [ ] Other, please specify [ ] Unable to determine (Template Last Revised: December 2020) MTDD
--- NOTE | 2024-06-04 13:31 | PN ---
PROGRESS NOTE Diabetes type 2 with hyperglycemia. MMODL / IJN: [id number] /
== END 2024-05-26 14:42 | disposition home health service (06) | DRG 304 ==
LOC: OR 08:11 → 4SSUR 17:20 → 2SICU 19:10 → OR 19:17 → 2SICU 19:25 → 3SCARD 05-20 13:21
PROVIDERS: ADMIT Orthopaedic Surgery; ATTEND Orthopaedic Surgery
PROC: 01NB0ZZ Release Lumbar Nerve, Open Approach (ICD-10-PCS; 2024-05-19)
PROC: 01NR0ZZ Release Sacral Nerve, Open Approach (ICD-10-PCS; 2024-05-19)
PROC: 0SG10AJ Fusion of 2 or more Lumbar Vertebral Joints with Interbody Fusion Device, Posterior Approach, Anterior Column, Open Approach (ICD-10-PCS; 2024-05-19)
PROC: 0SG30AJ Fusion of Lumbosacral Joint with Interbody Fusion Device, Posterior Approach, Anterior Column, Open Approach (ICD-10-PCS; 2024-05-19)
PROC: 0SG3071 Fusion of Lumbosacral Joint with Autologous Tissue Substitute, Posterior Approach, Posterior Column, Open Approach (ICD-10-PCS; 2024-05-19)
PROC: 0ST20ZZ Resection of Lumbar Vertebral Disc, Open Approach (ICD-10-PCS; 2024-05-19)
PROC: 8E0WXBF Computer Assisted Procedure of Trunk Region, With Fluoroscopy (ICD-10-PCS; 2024-05-19)
PROC: 0QH304Z Insertion of Internal Fixation Device into Left Pelvic Bone, Open Approach (ICD-10-PCS; 2024-05-19)
PROC: 0QH204Z Insertion of Internal Fixation Device into Right Pelvic Bone, Open Approach (ICD-10-PCS; 2024-05-19)
PROC: 0SG1071 Fusion of 2 or more Lumbar Vertebral Joints with Autologous Tissue Substitute, Posterior Approach, Posterior Column, Open Approach (ICD-10-PCS; principal; 2024-05-19 10:15)
PROC: 5A09357 Assistance with Respiratory Ventilation, Less than 24 Consecutive Hours, Continuous Positive Airway Pressure (ICD-10-PCS; 2024-05-20)
DX: M48.062 Spinal stenosis, lumbar region with neurogenic claudication (principal); M25.78 Osteophyte, vertebrae; M47.27 Other spondylosis with radiculopathy, lumbosacral region; M47.816 Spondylosis without myelopathy or radiculopathy, lumbar region; G47.8 Other sleep disorders; M51.A0 Intervertebral annulus fibrosus defect, lumbar region, unspecified size; M51.86 Other intervertebral disc disorders, lumbar region; M16.11 Unilateral primary osteoarthritis, right hip; M85.851 Other specified disorders of bone density and structure, right thigh; M85.651 Other cyst of bone, right thigh; I11.0 Hypertensive heart disease with heart failure; G47.33 Obstructive sleep apnea (adult) (pediatric); J44.9 Chronic obstructive pulmonary disease, unspecified; I48.19 Other persistent atrial fibrillation; E78.5 Hyperlipidemia, unspecified; J96.21 Acute and chronic respiratory failure with hypoxia; J96.22 Acute and chronic respiratory failure with hypercapnia; I50.33 Acute on chronic diastolic (congestive) heart failure; T50.905A Adverse effect of unspecified drugs, medicaments and biological substances, initial encounter; Z87.891 Personal history of nicotine dependence; E87.1 Hypo-osmolality and hyponatremia; G93.49 Other encephalopathy; Z98.1 Arthrodesis status; Z86.14 Personal history of Methicillin resistant Staphylococcus aureus infection; Q89.8 Other specified congenital malformations; Z79.84 Long term (current) use of oral hypoglycemic drugs; Z79.899 Other long term (current) drug therapy; Z79.51 Long term (current) use of inhaled steroids; Z79.891 Long term (current) use of opiate analgesic; G89.29 Other chronic pain; Z79.01 Long term (current) use of anticoagulants; E11.65 Type 2 diabetes mellitus with hyperglycemia
CPT/HCPCS: 71045; 72100; 72131; 80048; 80053; 80202; 82565; 82805; 84132; 85025; 86891; 94640; 94660; 94760

== ENCOUNTER 2024-06-06 10:57 | Inpatient (IN) | payer OTHER ==
[2024-06-06] MEDS: HYDROmorphone 1 MG/ML 1 ML SYRINGE IVP STA (11:20)
[2024-06-06 11:37] LABS: ALT 34 U/L (4-49); AST 41 U/L (17-59); African American GFR (CKD) >90 (>60 ml/min/1.73 sqM); Albumin 3.2 g/dL (3.5-5.0); Alkaline Phosphatase 153 U/L (38-126); Anion Gap 8 mmol/L; Anisocytosis Slight; Basophils % (A) 0 %; Blood Urea Nitrogen 14 mg/dL (9-20); Calcium 8.4 mg/dL (8.4-10.2); Carbon Dioxide 23 mmol/L (22-30); Chloride 106 mmol/L (98-107); Eosinophils # (A) 0.1 k/uL (0-0.7); Eosinophils % (A) 1 %; Glucose 135 mg/dL (74-99); HCT 32.5 % (39.0-53.0); HGB 9.9 gm/dL (13.0-17.5); Hypochromasia Moderate; Lymphocytes # (A) 0.9 k/uL (1.0-4.8); Lymphocytes % (A) 10 %; MCH 27.2 pg (25.0-35.0); MCHC 30.3 g/dL (31.0-37.0); MCV 89.7 fL (80.0-100.0); Mean Platelet Volume 7.2; Monocytes # (A) 0.7 k/uL (0-1.0); Monocytes % (A) 7 %; Neutrophils # (A) 7.3 k/uL (1.3-7.7); Neutrophils % (A) 80 %; Non-African American GFR(CKD) >90 (>60 ml/min/1.73 sqM); Platelet Count 648 k/uL (150-450); Poikilocytosis Slight; RBC 3.62 m/uL (4.30-5.90); RDW 16.1 % (11.5-15.5); Sodium 137 mmol/L (137-145); Total Bilirubin 1.6 mg/dL (0.2-1.3); Total Protein 5.5 g/dL (6.3-8.2); WBC 9.2 k/uL (3.8-10.6)
--- NOTE | 2024-06-06 12:17 | ED ---
General Adult HPI - General Chief complaint: Fall Stated complaint: Fall Time Seen by Provider: 06/06/24 11:00 Source: patient, EMS, RN notes reviewed, old records reviewed Mode of arrival: EMS - History of Present Illness Initial comments: This is a 58-year-old male who presents to the emergency department having back pain. Patient had back surgery on May 19. Patient states he fell recently and twisted his back but he did not land on his back or land on his knees. Patient states that since then his pain is increased. Patient denies numbness or weakness. Patient denies any fever or chills. Patient denies any problems urinating or with urinary retention. Patient states that Dr. Jeffrey did the surgery and end follow-up he was told that the screws had come loose. - Related Data Home Medications Medication Instructions Recorded Confirmed PARoxetine HCL [Paxil] 40 mg PO HS 12/21/19 06/05/24 buPROPion HCL [buPROPion HCL SR] 150 mg PO BID 12/21/19 06/05/24 metFORMIN HCL [Glucophage] 500 mg PO BID 12/21/19 06/05/24 Gabapentin 800 mg PO QID 11/06/22 06/05/24 Atorvastatin [Lipitor] 40 mg PO HS 03/01/23 06/05/24 Budesonide [Pulmicort] 1 mg INHALATION RT-BID 11/18/23 06/05/24 Budesonide/Formoterol Fumarate 2 puff INHALATION RT-BID 11/18/23 06/05/24 [Symbicort 160-4.5 Mcg Inhaler] HYDROcodone/APAP 10-325MG [[place] 1 tab PO QID PRN 11/18/23 06/05/24 10-325] Ipratropium Nebulized [Atrovent 0.5 mg INHALATION RT-QID 11/18/23 06/05/24 Nebulized 0.2 MG/ML] Montelukast [Singulair] 10 mg PO HS 11/18/23 06/05/24 Omeprazole [PriLOSEC] 40 mg PO DAILY 11/18/23 06/05/24 Doxycycline [Vibramycin] 100 mg PO BID 05/18/24 06/05/24 Previous Rx's Medication Instructions Recorded Dapagliflozin Propanediol [Farxiga] 10 mg PO DAILY #30 tab 11/20/23 Furosemide [Lasix] 40 mg PO DAILY #30 tab 11/20/23 Rivaroxaban [Xarelto] 20 mg PO W/SUPPER #30 tab 11/20/23 Cyclobenzaprine [Flexeril] 10 mg PO BID PRN #30 tab 05/26/24 cefaDROXiL [Duricef] 500 mg PO Q12HR 5 Days #10 cap 05/26/24 oxyCODONE HCL/ACETAMINOPHEN 1 tab PO Q4HR PRN #42 tab 05/27/24 [Percocet 7.5-325 mg] Allergies Allergy/AdvReac Type Severity Reaction Status Date / Time No Known Allergies Allergy Verified 06/06/24 11:03 Review of Systems ROS Statement: Those systems with pertinent positive or pertinent negative responses have been documented in the HPI. ROS Other: All systems not noted in ROS Statement are negative. Past Medical History Past Medical History: Atrial Fibrillation, Heart Failure, COPD, Diabetes Mellitus, GERD/Reflux, Hypertension, Musculoskeletal Disorder, Sleep Apnea/CPAP/BIPAP Additional Past Medical History / Comment(s): DDD, spinal spondylosis, right arm numbness down to fingers, bilateral knees occasionally buckle/wears right knee brace at times, chronic pain, no CPAP use. History of Any Multi-Drug Resistant Organisms: MRSA Date of last positivie culture/infection: 1999 MDRO Source:: face Past Surgical History: Appendectomy, Cholecystectomy, Orthopedic Surgery Additional Past Surgical History / Comment(s): Cervical fusion/cage with bone from hip, back surgery d/t congenital defect, multiple sutures to face due to chain saw accident, facial MRSA with surgery to remove, colonoscopy, L2-Pelvis decompression and fusion, bilateral SI joint fusions. Past Anesthesia/Blood Transfusion Reactions: Previous Problems w/ Anesthesia Additional Past Anesthesia/Blood Transfusion Reaction / Comment(s): "Combative when coming out anesthesia." Pt has never had a blood transfusion. Past Psychological History: Anxiety, Depression, PTSD Smoking Status: Former smoker Past Alcohol Use History: None Reported Past Drug Use History: Marijuana - Past Family History Mother Family Medical History: Deep Vein Thrombosis (DVT) Sister(s) Family Medical History: Cancer Additional Family Medical History / Comment(s): Colon cancer X2 sisters. Father Family Medical History: Myocardial Infarction ([place]) Additional Family Medical History / Comment(s): at 43 yrs of [place]. General Exam - General Exam Comments Initial Comments: GENERAL: Patient is well-developed and well-nourished. Patient is nontoxic and well- hydrated and is in moderate distress. ENT: Neck is soft and supple. No significant lymphadenopathy is noted. Oropharynx is clear. Moist mucous membranes. Neck has full range of motion without eliciting any pain. EYES: The sclera were anicteric and conjunctiva were pink and moist. Extraocular movements were intact and pupils were equal round and reactive to light. Eyelids were unremarkable. PULMONARY: Unlabored respirations. Good breath sounds bilaterally. No audible rales rhonchi or wheezing was noted. CARDIOVASCULAR: There is a regular rate and rhythm without any murmurs gallops or rubs. ABDOMEN: Soft and nontender with normal bowel sounds. SKIN: Skin is clear with no lesions or rashes and otherwise unremarkable. NEUROLOGIC: Patient is alert and oriented x3. Cranial nerves II through XII are grossly intact. Motor and sensory are also intact. Normal speech, volume and content. Symmetrical smile. MUSCULOSKELETAL: Normal extremities with adequate strength and full range of motion. Patient has tenderness to the lumbosacral spine. Unable to do any straight leg test because of his back pain at this time LYMPHATICS: No significant lymphadenopathy is noted PSYCHIATRIC: Normal psychiatric evaluation. Course Vital Signs 06/06/24 06/06/24 06/06/24 10:58 11:10 11:30 Temperature 98.1 F Pulse Rate 95 142 H 120 H Respiratory 20 28 H 18 Rate Blood Pressure 146/116 136/116 129/113 O2 Sat by Pulse 95 96 96 Oximetry 06/06/24 06/06/24 06/06/24 11:45 12:00 12:15 Temperature Pulse Rate 137 H 112 H 144 H Respiratory 14 22 21 Rate Blood Pressure 131/118 144/102 O2 Sat by Pulse 95 95 99 Oximetry Medical Decision Making - Medical Decision Making EKG is interpreted by myself. EKG shows atrial fibrillation with rapid ventricular response at 141 bpm QRS 99 QT interval 320 QTc is 392. Patient EKG shows no ST segment ovation or depression. Was pt. sent in by a medical professional or institution (, PA, PERSONNEL COUNSELOR, urgent care, hospital, or skilled nursing...) When possible be specific @ -No Did you speak to anyone other than the patient for history (EMS, parent, family, police, friend...)? What history was obtained from this source @ -No Did you review nursing and triage notes (agree or disagree)? Why? @ -I reviewed and agree with nursing and triage notes Were old charts reviewed (outside hosp., previous admission, EMS record, old EKG, old radiological studies, urgent care reports/EKG's, skilled nursing records)? Report findings @ -No old charts were reviewed Differential Diagnosis? @ -Differential Back Pain: Strain, zoster, cauda equina syndrome, epidural abscess, vertebral osteomye litis, discitis, fracture, subluxation, disc herniation, DJD, spinal stenosis, dissection, AAA, pancreatitis, peptic ulcer disease, pyelonephritis, kidney stone, this is not meant to be an all-inclusive list. EKG interpreted by me (3pts min.). @ -As above X-rays interpreted by me (1pt min.). @ -None done CT interpreted by me (1pt min.). @ -CT of the lumbar spine and shows multiple fractures with Dr. Jeffrey is aware of U/S interpreted by me (1pt. min.). @ -None done What testing was considered but not performed or refused? (CT, X-rays, U/S, labs)? Why? @ -None What meds were considered but not given or refused? Why? @ -None Did you discuss the management of the patient with other professionals (professionals i.e. , PA, PERSONNEL COUNSELOR, lab, RT, psych nurse, marriage and family social worker, storage architect, teacher, county health officer, pillowcase maker)? Give summary @ -I spoke with Dr. Jeffrey he will admit the patient I will consult Dr. Brito Was smoking cessation discussed for >3mins.? @ -No Was critical care preformed (if so, how long)? @ -No Were there social determinants of health that impacted care today? How? ( Homelessness, low income, unemployed, alcoholism, drug addiction, transportation, low edu. Level, literacy, decrease access to med. care, custodial, rehab)? @ -No Was there de-escalation of care discussed even if they declined (Discuss DNR or withdrawal of care, Hospice)? DNR status @ -No What co-morbidities impacted this encounter? (DM, HTN, Smoking, COPD, CAD, Cancer, CVA, ARF, Chemo, Hep., AIDS, mental health diagnosis, sleep apnea, morbid obesity)? @ -None Was patient admitted / discharged? Hospital course, mention meds given and route, prescriptions, significant lab abnormalities, going to OR and other pertinent info. @ -Patient has multiple lumbar spine fractures that are new and Dr. Jeffrey will admit the patient with a consult to Dr. Brito Undiagnosed new problem with uncertain prognosis? @ -No Drug Therapy requiring intensive monitoring for toxicity (Heparin, Nitro, Insulin, Cardizem)? @ -No Were any procedures done? @ -No Diagnosis/symptom? @ -Lumbar spine fractures Acute, or Chronic, or Acute on Chronic? @ -Default Uncomplicated (without systemic symptoms) or Complicated (systemic symptoms)? @ -Acute complicated Side effects of treatment? @ -No Exacerbation, Progression, or Severe Exacerbation? @ -No Poses a threat to life or bodily function? How? (Chest pain, [place], [place], pneumonia, PE, COPD, DKA, ARF, appy, cholecystitis, CVA, Diverticulitis, Homicidal, Suicidal, threat to staff... and all critical care pts) @ -Yes this can lead to neurologic deficit - Lab Data Result diagrams: 06/06/24 11:14 06/06/24 11:14 Lab Results 06/06/24 06/06/24 Range/Units 11:14 11:14 WBC 9.2 (3.8-10.6) k/uL RBC 3.62 L (4.30-5.90) m/uL Hgb 9.9 L (13.0-17.5) gm/dL Hct 32.5 L (39.0-53.0) % MCV 89.7 (80.0-100.0) fL MCH 27.2 (25.0-35.0) pg MCHC 30.3 L (31.0-37.0) g/dL RDW 16.1 H (11.5-15.5) % Plt Count 648 H (150-450) k/uL MPV 7.2 Neutrophils % 80 % Lymphocytes % 10 % Monocytes % 7 % Eosinophils % 1 % Basophils % 0 % Neutrophils # 7.3 (1.3-7.7) k/uL Lymphocytes # 0.9 L (1.0-4.8) k/uL Monocytes # 0.7 (0-1.0) k/uL Eosinophils # 0.1 (0-0.7) k/uL Basophils # 0.0 (0-0.2) k/uL Hypochromasia Moderate Poikilocytosis Slight Anisocytosis Slight Sodium 137 (137-145) mmol/L Potassium 4.0 (3.5-5.1) mmol/L Chloride 106 (98-107) mmol/L Carbon Dioxide 23 (22-30) mmol/L Anion Gap 8 mmol/L BUN 14 (9-20) mg/dL Creatinine 0.47 L (0.66-1.25) mg/dL Est GFR (CKD-EPI)AfAm >90 (>60 ml/min/1.73 sqM) Est GFR (CKD-EPI)NonAf >90 (>60 ml/min/1.73 sqM) Glucose 135 H (74-99) mg/dL Calcium 8.4 (8.4-10.2) mg/dL Total Bilirubin 1.6 H (0.2-1.3) mg/dL AST 41 (17-59) U/L ALT 34 (4-49) U/L Alkaline Phosphatase 153 H (38-126) U/L Total Protein 5.5 L (6.3-8.2) g/dL Albumin 3.2 L (3.5-5.0) g/dL Disposition Clinical Impression: Fracture of lumbar spine without cord injury, Fall Disposition: ADMITTED IP TO THIS HOSP Referrals: Deuce Brito MD [Primary Care Provider] - 1-2 days Time of Disposition: 12:50
--- NOTE | 2024-06-06 12:38 | CT ---
EXAMINATION TYPE: CT lumbar spine wo con CT DLP: 1856.3 mGycm, Automated exposure control for dose reduction was used. DATE OF EXAM: 06/06/2024 11:58 AM COMPARISON: CT 05/20/2024. CLINICAL INDICATION:Male, 58 years old with history of Increased pain postop; PHH, BACK PAIN POST OP TECHNIQUE: Multiple axial images were obtained from the midportion of T11 through the sacroiliac taty nts. Soft tissue and bone windows in coronal and sagittal planes were obtained and reviewed. Contrast used: mL of , (None, if empty). Oral contrast used: (None, if empty). FINDINGS: Postsurgical changes at L2-S1 with bilateral sacral fixation screws. There is new compression deformity to the superior endplate of L2 with height loss down to the pedicl e screws. There is possible loosening of the left pedicle screw is 205 image 43. There is a fracture through the vertebral body series 205 image 30 which is new. Additional new fractures of the right transverse process of L2 with mild displacement series 301 imag e 25 right transverse process of L3 is 201 image 37. Fractures are seen around the left L2 and L3 pedicles surrounding the hardware series 201 image 21 an d 201 image 31. There is mild displacement. Discectomy at L2-L3, L3-L4, L4-L5 and L5-S1 appear present. And L5-S1 no priors similar the actual amezquita rdware does appear intact. Within the limitations of exam the spinal canal is patent. There is some susceptibility artifact whic h limits evaluation. The neural foramen are grossly intact also given the limitations exam. Subcutaneous gas and fluid in the present. Area measuring roughly 12.1 x 3.4 cm. IMPRESSION: 1. New compression fracture of the L2 vertebral body with compression of the vertebral body down to the pedicle screws bilaterally and loosening of the left pedicle screw. Hardware does appear intact. 2. May 2 right transverse process of L2 and L3 fractures. 3. New Left pedicle/transverse process of L2 and L3 fractures around the hardware with mild displace ment. 4. Subcutaneous gas in the surgical bed correlate for signs and symptoms of infection versus normal postop change. Findings communicated to Dr. Jeffrey on 06/06/2024 12:[address] Pedro Merritt.
[2024-06-06] MEDS: SODIUM CHLORIDE 0.9% 1,000 ML IV ONE (13:44)
--- NOTE | 2024-06-06 13:49 | P.HPOR ---
History of Present Illness H&P Date: 06/06/24 Chief Complaint: Hardware failure lumbar spine, L2-L3 fracture Patient is a 58-year-old male who presented to [facility] earlier this morning after tripping and falling while at home. Patient is known to our orthopedic group, he recently underwent a revision [id number] posterior lateral decompression and fusion with bilateral open SI joint fusions on 05/19/[address] Jeffrey. Patient was recently seen in the office on 06/03/2024 for his first postop visit. Patient's incision has been healing well, torsten were removed. Patient had admitted at that time he was doing a little bit of bending and twisting and there may have been a possible fall, x-rays demonstrated hardware failure at the L2 region. Options for treatment were discussed at that office visit, patient was boarded for a revision [id number] decompression and fusion for 06/09/2024. Patient was evaluated today in the ER at bedside he was resting comfortably. He states that he tripped over a cat while using his cane and fell to his hands and knees. Patient has noticed worsening pain in the lumbar area since that fall. He is not utilizing his LSO brace today in hospital. He states he has been utilizing the cane. He denies any numbness or tingling to the bilateral lower extremities. He denies any genital or perineal numbness or tingling at this time. He denies any loss of bowel or bladder function at this time. He states he feels most pain with initiating movement. He stated besides the recent fall he has been doing fairly well at home. Review of Systems Constitutional: Reports as per HPI Past Medical History Past Medical History: Atrial Fibrillation, Heart Failure, COPD, Diabetes Mellitus, GERD/Reflux, Hypertension, Musculoskeletal Disorder, Sleep Apnea/CPAP/BIPAP Additional Past Medical History / Comment(s): DDD, spinal spondylosis, right arm numbness down to fingers, bilateral knees occasionally buckle/wears right knee brace at times, chronic pain, no CPAP use. History of Any Multi-Drug Resistant Organisms: MRSA Date of last positivie culture/infection: 1999 MDRO Source:: face Past Surgical History: Appendectomy, Cholecystectomy, Orthopedic Surgery Additional Past Surgical History / Comment(s): Cervical fusion/cage with bone from hip, back surgery d/t congenital defect, multiple sutures to face due to chain saw accident, facial MRSA with surgery to remove, colonoscopy, L2-Pelvis decompression and fusion, bilateral SI joint fusions. Past Anesthesia/Blood Transfusion Reactions: Previous Problems w/ Anesthesia Additional Past Anesthesia/Blood Transfusion Reaction / Comment(s): "Combative when coming out anesthesia." Pt has never had a blood transfusion. Past Psychological History: Anxiety, Depression, PTSD Smoking Status: Former smoker Past Alcohol Use History: None Reported Past Drug Use History: Marijuana - Past Family History Mother Family Medical History: Deep Vein Thrombosis (DVT) Sister(s) Family Medical History: Cancer Additional Family Medical History / Comment(s): Colon cancer X2 sisters. Father Family Medical History: My[place] Infarction ([place]) Additional Family Medical History / Comment(s): at 43 yrs of [place]. Medications and Allergies Home Medications Medication Instructions Recorded Confirmed Type PARoxetine HCL [Paxil] 40 mg PO HS 12/21/19 06/06/24 History buPROPion HCL [buPROPion HCL SR] 150 mg PO BID 12/21/19 06/06/24 History metFORMIN HCL [Glucophage] 500 mg PO BID 12/21/19 06/06/24 History Gabapentin 800 mg PO QID 11/06/22 06/06/24 History Atorvastatin [Lipitor] 40 mg PO HS 03/01/23 06/06/24 History Budesonide [Pulmicort] 1 mg INHALATION RT-BID 11/18/23 06/06/24 History HYDROcodone/APAP 10-325MG [[place] 1 tab PO QID PRN 11/18/23 06/06/24 History 10-325] Ipratropium Nebulized [Atrovent 0.5 mg INHALATION RT-QID 11/18/23 06/06/24 History Nebulized 0.2 MG/ML] Montelukast [Singulair] 10 mg PO HS 11/18/23 06/06/24 History Omeprazole [PriLOSEC] 40 mg PO DAILY 11/18/23 06/06/24 History Dapagliflozin Propanediol [Farxiga] 10 mg PO DAILY #30 tab 11/20/23 06/06/24 Rx Furosemide [Lasix] 40 mg PO DAILY #30 tab 11/20/23 06/06/24 Rx Doxycycline [Vibramycin] 100 mg PO BID 05/18/24 06/06/24 History Cyclobenzaprine [Flexeril] 10 mg PO BID PRN #30 tab 05/26/24 06/06/24 Rx Rivaroxaban [Xarelto] 10 mg PO W/SUPPER 06/06/24 06/06/24 History cefaDROXiL [Duricef] 500 mg PO Q12HR 06/06/24 06/06/24 History oxyCODONE-APAP 10-325MG [Percocet 1 tab PO Q6HR PRN 06/06/24 06/06/24 History 10-325 mg] Allergies Allergy/AdvReac Type Severity Reaction Status Date / Time No Known Allergies Allergy Verified 06/06/24 13:25 Physical Examination Gen: AOx3, NAD VSS stable at this time Integument: Incision is well-healed, there is a small area noted toward the distal end with superficial dehiscence. There are no areas of erythema or fluctuance appreciated 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, physician aide 4/5 strength appreciated in the bilateral lower extremities with hip flexion, knee extension, knee flexion, 5/5 strength appreciated the bilateral lower extremities with plantarflexion, dorsiflexion, EHL, FHL Reflexes: 2/4 in all UE and LE Negative Philippe's bilaterally Negative clonus bilaterally Results - Labs Labs: Abnormal Lab Results - Last 24 Hours (Table) 06/06/24 06/06/24 Range/Units 11:14 11:14 RBC 3.62 L (4.30-5.90) m/uL Hgb 9.9 L (13.0-17.5) gm/dL Hct 32.5 L (39.0-53.0) % MCHC 30.3 L (31.0-37.0) g/dL RDW 16.1 H (11.5-15.5) % Plt Count 648 H (150-450) k/uL Lymphocytes # 0.9 L (1.0-4.8) k/uL Creatinine 0.47 L (0.66-1.25) mg/dL Glucose 135 H (74-99) mg/dL Total Bilirubin 1.6 H (0.2-1.3) mg/dL Alkaline Phosphatase 153 H (38-126) U/L Total Protein 5.5 L (6.3-8.2) g/dL Albumin 3.2 L (3.5-5.0) g/dL H & H 06/06/24 Range/Units 11:14 Hgb 9.9 L (13.0-17.5) gm/dL Hct 32.5 L (39.0-53.0) % Result Diagrams: 06/06/24 11:14 06/06/24 11:14 - Diagnostic results CT Scan - lumbar: report reviewed, image reviewed Assessment and Plan Assessment: History of recent [id number] posterior lateral decompression and fusion, bilateral open SI joint fusions Hardware failure L2-L3 L2 vertebral body compression fracture L2-L3 right-sided transverse process fractures L2-L3 left-sided pedicle and transverse process fractures Status post recent fall Other medical comorbidities Plan: Imaging: CT scan of the lumbar spine without contrast was reviewed, this to include images and reports. Images demonstrated surgical hardware from [id number] along with the SI joint fusion screws. Compression deformity involving the L2 vertebral body is noted. Right-sided transverse process fractures at L2 and L3, pedicle and transverse process fractures on the left of L2-L3. Remaining hardware appears to be intact. Plan: I was able to review the case, this to include both physical exam findings and imaging studies my attending Dr. Summers sent. Dr. Summers's and spoke with the ER room staff regarding this patient. Patient is already scheduled for surgery for 06/09/2024. We would like to keep the patient in hospital at this time for further evaluation and management. Thoracic CT scan without contrast has been ordered for surgical planning Pain control, will resume home medications DVT prophylaxis, SCDs and PIERRE hose at this time. Will discuss with cardiology holding Xarelto due to upcoming surgery and consider other options Limited activity at this time due to hardware failure, discussed with patient he needs to have family member bring his LSO brace Encourage incentive spirometer PT/OT after surgery Cardiology consult will be placed due to his cardiac history Internal medicine recommendations appreciated Will continue to follow during patient during hospital stay Time with Patient: Less than 30
[2024-06-06] MEDS ORDERED: CYCLOBENZAPRINE 10 MG TAB PO PRN (13:50)
--- NOTE | 2024-06-06 14:15 | CT ---
EXAMINATION TYPE: CT thoracic spine wo con CT DLP: 1962.8 mGycm, Automated exposure control for dose reduction was used. DATE OF EXAM: 06/06/2024 1:48 PM COMPARISON: Same day lumbar spine.. CLINICAL INDICATION:Male, 58 years old with history of previous lumbar surgery, recent fall; PHH, Fal l, recent lumbar surgery TECHNIQUE: Axial images of the thoracic spine were obtained without contrast. Coronal and sagittal re formats were performed. Contrast used: mL of , none Oral contrast used: none FINDINGS: Postsurgical changes of the lumbar spine with fractures described on same day lumbar spine CT. The visualized vertebrae within the thoracic spine are intact. There is hardware seen in the lowe r cervical spine hardware appears intact. No evidence of fracture within the visualized cervical spin e. No significant spinal canal or neural foraminal stenosis and thoracic spine. IMPRESSION: 1. The lower thoracic spine appears intact without evidence of fracture. 2. No spinal canal or neural foraminal stenosis is identified. 3. Please see dedicated lumbar spine for findings regarding the fractures in the lumbar spine and amezquita rdware failure.
[2024-06-06] MEDS: oxyCODONE-APAP 7.5-325MG 1 EACH TAB PO PRN (14:29)
[2024-06-06] MEDS: DILTIAZEM 125 MG in SODIUM CHLORIDE 0.9% 100 ML IV SCH (15:18)
[2024-06-06 16:30] LABS: Glucose,Whole Blood 118 mg/dL (70-110)
[2024-06-06] MEDS: IPRATROPIUM 0.5 MG/2.5 ML NEBU INHALATION SCH (16:56)
[2024-06-06] MEDS: GABAPENTIN 400 MG CAP PO SCH (17:35)
[2024-06-06] MEDS: CEPHALEXIN 250 MG CAP PO SCH (17:35)
[2024-06-06] MEDS: oxyCODONE-APAP 10-325MG 1 EACH TAB PO PRN (18:09)
[2024-06-06 19:51] LABS: Glucose,Whole Blood 107 mg/dL (70-110)
[2024-06-06] MEDS: BUDESONIDE 1 MG/2 ML NEBU INHALATION SCH (20:08)
[2024-06-06] MEDS: MONTELUKAST 10 MG TAB PO SCH (21:12)
[2024-06-06] MEDS: PARoxetine 20 MG TAB PO SCH (21:12)
[2024-06-06] MEDS: ATORVASTATIN 40 MG TAB PO SCH (21:12)
[2024-06-06] MEDS: buPROPion SR 150 MG TABLET.ER PO SCH (21:12)
[2024-06-06] MEDS: metFORMIN 500 MG TAB PO SCH (21:12)
[2024-06-07 06:02] LABS: Glucose,Whole Blood 126 mg/dL (70-110)
[2024-06-07] MEDS: METOPROLOL SUCCINATE (ER) 50 MG TAB.ER.24H PO SCH (09:13)
[2024-06-07] MEDS: DAPAGLIFLOZIN PROPANEDIOL 10 MG TABLET PO SCH (09:14)
[2024-06-07] MEDS: CYCLOBENZAPRINE 10 MG TAB PO PRN (09:14)
[2024-06-07] MEDS: FUROSEMIDE 40 MG TAB PO SCH (09:14)
[2024-06-07] MEDS: PANTOPRAZOLE 40 MG TABLET PO SCH (09:14)
[2024-06-07] MEDS: DILTIAZEM CD 120 MG CAP.ER.24H PO SCH (09:14)
--- NOTE | 2024-06-07 09:33 | P.CRDCN ---
History of Present Illness History of present illness: HISTORY OF PRESENT ILLNESS: This is a 58-year-old male with a past medical history significant for hypertension, hyperlipidemia, diabetes, and atrial fibrillation. Patient follows in the office with Dr. Menard. We have been asked to see the patient in consultation for atrial fibrillation. Patient examined at the bedside. Recently underwent surgery at the end of April with Dr. Jeffrey. Patient is scheduled for revision surgery on June 09, 2024. Patient presented to the hospital after sustaining a fall at home. Patient denies losing consciousness. Patient currently denies chest pain or pressure. He denies shortness of breath. He is complaining of significant back pain at the time of examination. He remains in atrial fibrillation with heart rate in the 110s. Patient was prescribed metoprolol and Cardizem on an outpatient basis which has not yet been resumed. DIAGNOSTICS: - EKG reveals atrial fibrillation with RVR. - Laboratory data: WBC 9.2. Hemoglobin 9.9. Platelet count 648. Sodium 137. Potassium 4.0. BUN 14. Creatinine 0.47. - Current home cardiac medications include Farxiga 10 mg daily, Xarelto 10 mg at night, Lasix 40 mg daily, Lipitor 40 mg at night. - Most recent echocardiogram obtained in October 2023 revealed ejection fraction 50 to 55%, mild MR, trace to mild TR -Patient underwent Lexiscan stress test in February 2023 revealing small fixed de fect along the distal inferior wall extending to the apex. No stress-induced ischemic changes. REVIEW OF SYSTEMS: At the time of my exam: CONSTITUTIONAL: Denies fever or chills. HEENT: Denies blurred vision, vision changes, or eye pain. Denies hemoptysis CARDIOVASCULAR: Denies chest pain. Denies orthopnea. Denies PND. Denies palpitations RESPIRATORY: Denies shortness of breath. GASTROINTESTINAL: Denies abdominal pain. Denies nausea or vomiting. HEMATOLOGIC: Denies bleeding disorders. GENITOURINARY: Denies any blood in urine. SKIN: Denies pruitis. Denies rash. PHYSICAL EXAM: VITAL SIGNS: Reviewed. GENERAL: Well-developed in no acute distress. HEENT: Head is normocephalic. Pupils are equal, round. Sclerae anicteric. Mucous membranes of the mouth are moist. Neck supple. No JVD or thyromegaly LUNGS: Respirations even and unlabored. Lungs essentially clear to auscultation bilaterally. HEART: Mildly tachycardic. Irregular rate and rhythm. S1 and S2 heard. ABDOMEN: Soft. Nondistended. Nontender. EXTREMITIES: Normal range of motion. No clubbing or cyanosis. Peripheral pulses intact. No lower extremity edema NEUROLOGIC: Awake and alert. Oriented x 3. ASSESSMENT: Status post mechanical fall Recent revision [id number] posterior lateral decompression and fusion with bilateral open SI joint fusions, 05/19/2024 Hardware failure L2-L3 L2 vertebral body compression fracture L2-L3 right-sided transverse process fractures L2-L3 left-sided pedicle and transverse process fractures Persistent atrial fibrillation Hypertension Hyperlipidemia Diabetes PLAN: Obtain 2D echo to assess cardiac structure and function Xarelto remains on hold for upcoming surgery Patient is scheduled to undergo surgery with Dr. Jeffrey on 06/09/2024 Discontinue IV Cardizem Resume oral metoprolol and oral Cardizem Continue telemetry monitoring There are no absolute contraindications for patient to proceed with surgery from a cardiac standpoint Further recommendations pending patient course Nurse practitioner note has been reviewed by physician. Signing provider agrees with the documented findings, assessment, and plan of care documented by PIG CONVEYOR OPERATOR as a scribe. Past Medical History Past Medical History: Atrial Fibrillation, Heart Failure, COPD, Diabetes Mellitus, GERD/Reflux, Hypertension, Musculoskeletal Disorder, Sleep Apnea/CPAP/BIPAP Additional Past Medical History / Comment(s): DDD, spinal spondylosis, right arm numbness down to fingers, bilateral knees occasionally buckle/wears right knee brace at times, chronic pain, no CPAP use. History of Any Multi-Drug Resistant Organisms: MRSA Date of last positivie culture/infection: 1999 MDRO Source:: face Past Surgical History: Appendectomy, Cholecystectomy, Orthopedic Surgery Additional Past Surgical History / Comment(s): Cervical fusion/cage with bone from hip, back surgery d/t congenital defect, multiple sutures to face due to chain saw accident, facial MRSA with surgery to remove, colonoscopy, L2-Pelvis decompression and fusion, bilateral SI joint fusions. Past Anesthesia/Blood Transfusion Reactions: Previous Problems w/ Anesthesia Additional Past Anesthesia/Blood Transfusion Reaction / Comment(s): "Combative when coming out anesthesia." Pt has never had a blood transfusion. Past Psychological History: Anxiety, Depression, PTSD Additional Psychological History / Comment(s): Pt resides with exspouse. Smoking Status: Former smoker Past Alcohol Use History: None Reported Additional Past Alcohol Use History / Comment(s): Started smoking in 1979 and was a ppd smoker, quit 01/2023. Past Drug Use History: Marijuana Additional Drug Use History / Comment(s): USES MARIJUANA DAILY BOTH SMOKING AND EDIBLES-INSTRUCTED TO REFRAIN FROM USE FOR AT LEAST 24 HOURS PRIOR TO PROCEDURE. - Past Family History Mother Family Medical History: Deep Vein Thrombosis (DVT) Sister(s) Family Medical History: Cancer Additional Family Medical History / Comment(s): Colon cancer X2 sisters. Father Family Medical History: Myocardial Infarction ([place]) Additional Family Medical History / Comment(s): at 43 yrs of [place]. Medications and Allergies Home Medications Medication Instructions Recorded Confirmed Type PARoxetine HCL [Paxil] 40 mg PO HS 12/21/19 06/06/24 History buPROPion HCL [buPROPion HCL SR] 150 mg PO BID 12/21/19 06/06/24 History metFORMIN HCL [Glucophage] 500 mg PO BID 12/21/19 06/06/24 History Gabapentin 800 mg PO QID 11/06/22 06/06/24 History Atorvastatin [Lipitor] 40 mg PO HS 03/01/23 06/06/24 History Budesonide [Pulmicort] 1 mg INHALATION RT-BID 11/18/23 06/06/24 History HYDROcodone/APAP 10-325MG [[place] 1 tab PO QID PRN 11/18/23 06/06/24 History 10-325] Ipratropium Nebulized [Atrovent 0.5 mg INHALATION RT-QID 11/18/23 06/06/24 History Nebulized 0.2 MG/ML] Montelukast [Singulair] 10 mg PO HS 11/18/23 06/06/24 History Omeprazole [PriLOSEC] 40 mg PO DAILY 11/18/23 06/06/24 History Dapagliflozin Propanediol [Farxiga] 10 mg PO DAILY #30 tab 11/20/23 06/06/24 Rx Furosemide [Lasix] 40 mg PO DAILY #30 tab 11/20/23 06/06/24 Rx Doxycycline [Vibramycin] 100 mg PO BID 05/18/24 06/06/24 History Cyclobenzaprine [Flexeril] 10 mg PO BID PRN #30 tab 05/26/24 06/06/24 Rx Rivaroxaban [Xarelto] 10 mg PO W/SUPPER 06/06/24 06/06/24 History cefaDROXiL [Duricef] 500 mg PO Q12HR 06/06/24 06/06/24 History oxyCODONE-APAP 10-325MG [Percocet 1 tab PO Q6HR PRN 06/06/24 06/06/24 History 10-325 mg] Allergies Allergy/AdvReac Type Severity Reaction Status Date / Time No Known Allergies Allergy Verified 06/06/24 13:25 Physical Exam Vitals: Vital Signs Temp Pulse Pulse Resp BP BP Pulse Ox 06/07/24 02:00 98 16 136/73 90 L 06/06/24 20:21 96 06/06/24 20:10 95 06/06/24 20:00 98.1 F 116 H 16 137/80 98 06/06/24 18:11 97.8 F 57 L 16 144/101 96 06/06/24 17:12 93 06/06/24 16:56 115 H 06/06/24 15:58 115 H 18 143/93 94 L 06/06/24 15:15 130 H 15 131/110 96 06/06/24 15:00 118 H 21 134/120 98 06/06/24 14:45 129 H 20 116/93 95 06/06/24 14:30 120 H 18 140/122 96 06/06/24 14:15 105 H 17 131/109 96 06/06/24 14:00 115 H 21 152/117 97 06/06/24 13:45 124 H 22 152/117 95 06/06/24 13:30 123 H 25 H 147/112 97 06/06/24 13:15 123 H 21 139/107 95 06/06/24 13:00 154 H 25 H 143/119 97 06/06/24 12:45 124 H 17 142/103 98 06/06/24 12:30 107 H 19 143/118 96 06/06/24 12:15 144 H 21 144/102 99 06/06/24 12:00 112 H 22 95 06/06/24 11:45 137 H 14 131/118 95 06/06/24 11:30 120 H 18 129/113 96 06/06/24 11:10 142 H 28 H 136/116 96 06/06/24 10:58 98.1 F 95 20 146/116 95 Intake and Output 06/06/24 06/07/24 06/07/24 22:59 06:59 14:59 Intake Total 540 Output Total 325 Balance -325 540 Intake: Oral 540 Output: Urine 325 Other: Voiding Method Toilet # Voids 1 # Bowel Movements 1 Weight 113.398 kg Results 06/06/24 11:14 06/06/24 11:14 Cardiac Enzymes 06/06/24 Range/Units 11:14 AST 41 (17-59) U/L CBC 06/06/24 Range/Units 11:14 WBC 9.2 (3.8-10.6) k/uL RBC 3.62 L (4.30-5.90) m/uL Hgb 9.9 L (13.0-17.5) gm/dL Hct 32.5 L (39.0-53.0) % Plt Count 648 H (150-450) k/uL Comprehensive Metabolic Panel 06/06/24 Range/Units 11:14 Sodium 137 (137-145) mmol/L Potassium 4.0 (3.5-5.1) mmol/L Chloride 106 (98-107) mmol/L Carbon Dioxide 23 (22-30) mmol/L BUN 14 (9-20) mg/dL Creatinine 0.47 L (0.66-1.25) mg/dL Glucose 135 H (74-99) mg/dL Calcium 8.4 (8.4-10.2) mg/dL AST 41 (17-59) U/L ALT 34 (4-49) U/L Alkaline Phosphatase 153 H (38-126) U/L Total Protein 5.5 L (6.3-8.2) g/dL Albumin 3.2 L (3.5-5.0) g/dL Current Medications Generic Name Dose Route Start Last Admin Trade Name Freq PRN Reason Stop Dose Admin Atorvastatin Calcium 40 mg 06/06/24 21:00 06/06/24 21:12 Atorvastatin 40 Mg Tab PO 40 mg HS FROILAN Administration Budesonide 1 mg 06/06/24 20:00 06/06/24 20:08 Budesonide 1 Mg/2 Ml Nebu INHALATION 1 mg RT-BID FROILAN Administration Bupropion HCl 150 mg 06/06/24 21:00 06/06/24 21:12 Bupropion Sr 150 Mg Tablet.Er PO 150 mg BID FROILAN Administration Cephalexin 250 mg 06/06/24 18:00 06/07/24 04:48 Cephalexin 250 Mg Cap PO 06/14/24 00:01 250 mg Q6HR FROILAN Administration Cyclobenzaprine HCl 10 mg 06/06/24 14:54 Cyclobenzaprine 10 Mg Tab PO BID PRN Muscle Spasm Dapagliflozin 10 mg 06/07/24 09:00 Dapagliflozin Propanediol 10 Mg Tablet PO DAILY FROILAN Furosemide 40 mg 06/07/24 09:00 Furosemide 40 Mg Tab PO DAILY FROILAN Gabapentin 800 mg 06/06/24 18:00 06/06/24 21:12 Gabapentin 400 Mg Cap PO 800 mg QID FROILAN Administration Diltiazem HCl 125 mg/ Sodium 125 mls @ 5 mls/hr 06/06/24 15:00 06/06/24 15:18 Chloride IV 5 mg/hr .Q24H FROILAN 5 mls/hr Administration 5 MG/HR Ipratropium [place] 0.5 mg 06/06/24 16:00 06/06/24 20:08 Ipratropium 0.5 Mg/2.5 Ml Nebu INHALATION 0.5 mg RT-QID FROILAN Administration Metformin HCl 500 mg 06/06/24 21:00 06/06/24 21:12 Metformin 500 Mg Tab PO 500 mg BID FROILAN Administration Montelukast Sodium 10 mg 06/06/24 21:00 06/06/24 21:12 Montelukast 10 Mg Tab PO 10 mg HS FROILAN Administration Oxycodone/Acetaminophen 1 each 06/06/24 13:50 06/07/24 05:20 Oxycodone-Apap 7.5-325mg 1 Each Tab PO 1 each Q6HR PRN Administration Pain Scale 9 To 10 Oxycodone/Acetaminophen 1 each 06/06/24 14:54 06/07/24 04:48 Oxycodone-Apap 10-325mg 1 Each Tab PO 1 each Q6HR PRN Administration Pain Pantoprazole Sodium 40 mg 06/07/24 09:00 Pantoprazole 40 Mg Tablet PO DAILY FROILAN Paroxetine HCl 40 mg 06/06/24 21:00 06/06/24 21:12 Paroxetine 20 Mg Tab PO 40 mg HS FROILAN Administration Intake and Output 0706/07/24 06/07/24 22:59 06:59 14:59 Intake Total 540 Output Total 325 Balance -325 540 Intake: Oral 540 Output: Urine 325 Other: Voiding Method Toilet # Voids 1 # Bowel Movements 1 Weight 113.398 kg 06/06/24 11:14 06/06/24 11:14
[2024-06-07 11:54] LABS: Glucose,Whole Blood 140 mg/dL (70-110)
--- NOTE | 2024-06-07 12:03 | P.PN ---
Subjective Progress Note Date: 06/07/24 Principal diagnosis: L2-L3 fracture, hardware failure L2-L3, history of recent [id number] decompression and fusion and open bilateral SI joint fusion Patient evaluated today at bedside, he is resting comfortably. He feels that the pain is controlled with current medications. He notices most discomfort when he attempts to ambulate. He denies any issues with urination. He denies any chest pain, shortness of breath, nausea or vomiting. Patient has been evaluated by cardiology. Objective - Vital Signs Vital signs: Vital Signs Temp 98.1 F 06/07/24 08:00 Pulse 88 06/07/24 11:26 Resp 16 06/07/24 08:00 BP 133/87 06/07/24 08:00 Pulse Ox 97 06/07/24 08:00 FiO2 Intake & Output 06/06/24 06/07/24 06/07/24 18:59 06:59 18:59 Intake Total 540 240 Output Total 325 Balance -325 540 240 Weight 113.398 kg Intake: Oral 540 240 Output: Urine 325 Other: Voiding Method Toilet Toilet # Voids 1 # Bowel Movements 1 - Exam Gen: AOx3, NAD VSS stable at this time Integument: Incision is well-healed, there is a small area noted toward the distal end with superficial dehiscence. 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 cut off saw operator 4/5 strength appreciated in the bilateral lower extremities with hip flexion, knee extension, knee flexion, 5/5 strength appreciated the bilateral lower extremities with plantarflexion, dorsiflexion, EHL, FHL Reflexes: 2/4 in all UE and LE Negative Philippe's bilaterally Negative clonus bilaterally - Labs CBC & Chem 7: 06/06/24 11:14 06/06/24 11:14 Labs: Abnormal Lab Results - Last 24 Hours (Table) 06/06/24 06/07/24 06/07/24 Range/Units 16:28 06:00 11:53 POC Glucose (mg/dL) 118 H 126 H 140 H (70-110) mg/dL Assessment and Plan Assessment: History of recent [id number] posterior lateral decompression and fusion, bilateral open SI joint fusions Hardware failure L2-L3 L2 vertebral body compression fracture L2-L3 right-sided transverse process fractures L2-L3 left-sided pedicle and transverse process fractures Status post recent fall Other medical comorbidities Plan: Plan: Pain control, will resume home medications DVT prophylaxis, SCDs and PIERRE hose at this time. Limited activity at this time due to hardware failure, discussed with patient he needs to have family member bring his LSO brace Encourage incentive spirometer PT/OT after surgery Other medical specialty recommendations appreciated Surgery scheduled for 06/09/2024 Will continue to follow during patient during hospital stay Time with Patient: Less than 30
--- NOTE | 2024-06-07 12:28 | P.HPIM ---
History of Present Illness H&P Date: 06/07/24 Chief Complaint: back pain and shortness of breath 58-year-old male seen and evaluated examinedon medical floor, patient has severe degree of degenerative joint disease osteoarthritis of exertional the skeleton he is status post C-spine surgery in the past and recently in April had lumbar surgery. Patient came back due to back pain, patient has a history of fall since then pain has been escalated, denies any numbness however denies any weakness and [place] no fever or chills, denies any bowel or bladder related problem, patient is being admitted to hospital with Dr. Summers sent on consult for spine surgery. Patient has. History of the atrial fibrillation,depression, type 2 diabetes mellitus, dyslipidemia, COPD, degenerative joint disease osteoarthritis, GERD labs included a bruising on 9.2 hemoglobin remained 9.9/32 platelet count 648, creatinine 0.47 glucose 135CT of lumbar spine postsurgical changes in L2-S1 with bilateral sacral fixation screw, compression deformity in L2 hours seen which is new,should also noted to have the transverse process L2-L3 fracture with hardware displacement, computed tomography scan of the thoracic spine within normal limit patient has been evaluated by spine surgery and being scheduled for revision surgery on June 09. Patient also noted to be in A. fib with rapid ventricular response Review of Systems All systems: negative Past Medical History Past Medical History: Atrial Fibrillation, Heart Failure, COPD, Diabetes Mellitus, GERD/Reflux, Hypertension, Musculoskeletal Disorder, Sleep Apnea/CPAP/BIPAP Additional Past Medical History / Comment(s): DDD, spinal spondylosis, right arm numbness down to fingers, bilateral knees occasionally buckle/wears right knee brace at times, chronic pain, no CPAP use. History of Any Multi-Drug Resistant Organisms: MRSA Date of last positivie culture/infection: 1999 MDRO Source:: face Past Surgical History: Appendectomy, Cholecystectomy, Orthopedic Surgery Additional Past Surgical History / Comment(s): Cervical fusion/cage with bone from hip, back surgery d/t congenital defect, multiple sutures to face due to chain saw accident, facial MRSA with surgery to remove, colonoscopy, L2-Pelvis decompression and fusion, bilateral SI joint fusions. Past Anesthesia/Blood Transfusion Reactions: Previous Problems w/ Anesthesia Additional Past Anesthesia/Blood Transfusion Reaction / Comment(s): "Combative when coming out anesthesia." Pt has never had a blood transfusion. Past Psychological History: Anxiety, Depression, PTSD Additional Psychological History / Comment(s): Pt resides with exspouse. Smoking Status: Former smoker Past Alcohol Use History: None Reported Additional Past Alcohol Use History / Comment(s): Started smoking in 1979 and was a ppd smoker, quit 01/2023. Past Drug Use History: Marijuana Additional Drug Use History / Comment(s): USES MARIJUANA DAILY BOTH SMOKING AND EDIBLES-INSTRUCTED TO REFRAIN FROM USE FOR AT LEAST 24 HOURS PRIOR TO PROCEDURE. - Past Family History Mother Family Medical History: Deep Vein Thrombosis (DVT) Sister(s) Family Medical History: Cancer Additional Family Medical History / Comment(s): Colon cancer X2 sisters. Father Family Medical History: Myocardial Infarction (OR) Additional Family Medical History / Comment(s): at 43 yrs of OR. Medications and Allergies Home Medications Medication Instructions Recorded Confirmed Type PARoxetine HCL [Paxil] 40 mg PO HS 12/21/19 06/06/24 History buPROPion HCL [buPROPion HCL SR] 150 mg PO BID 12/21/19 06/06/24 History metFORMIN HCL [Glucophage] 500 mg PO BID 12/21/19 06/06/24 History Gabapentin 800 mg PO QID 11/06/22 06/06/24 History Atorvastatin [Lipitor] 40 mg PO HS 03/01/23 06/06/24 History Budesonide [Pulmicort] 1 mg INHALATION RT-BID 11/18/23 06/06/24 History HYDROcodone/APAP 10-325MG [[place] 1 tab PO QID PRN 11/18/23 06/06/24 History 10-325] Ipratropium Nebulized [Atrovent 0.5 mg INHALATION RT-QID 11/18/23 06/06/24 History Nebulized 0.2 MG/ML] Montelukast [Singulair] 10 mg PO HS 11/18/23 06/06/24 History Omeprazole [PriLOSEC] 40 mg PO DAILY 11/18/23 06/06/24 History Dapagliflozin Propanediol [Farxiga] 10 mg PO DAILY #30 tab 11/20/23 06/06/24 Rx Furosemide [Lasix] 40 mg PO DAILY #30 tab 11/20/23 06/06/24 Rx Doxycycline [Vibramycin] 100 mg PO BID 05/18/24 06/06/24 History Cyclobenzaprine [Flexeril] 10 mg PO BID PRN #30 tab 05/26/24 06/06/24 Rx Rivaroxaban [Xarelto] 10 mg PO W/SUPPER 06/06/24 06/06/24 History cefaDROXiL [Duricef] 500 mg PO Q12HR 06/06/24 06/06/24 History oxyCODONE-APAP 10-325MG [Percocet 1 tab PO Q6HR PRN 06/06/24 06/06/24 History 10-325 mg] Allergies Allergy/AdvReac Type Severity Reaction Status Date / Time No Known Allergies Allergy Verified 06/06/24 13:25 Physical Exam Vitals: Vital Signs Temp Pulse Pulse Resp BP BP Pulse Ox 06/07/24 11:26 88 06/07/24 11:15 90 06/07/24 08:05 92 06/07/24 08:00 98.1 F 101 H 16 133/87 97 06/07/24 07:49 90 06/07/24 02:00 98 16 136/73 90 L 06/06/24 20:21 96 06/06/24 20:10 95 06/06/24 20:00 98.1 F 116 H 16 137/80 98 06/06/24 18:11 97.8 F 57 L 16 144/101 96 06/06/24 17:12 93 06/06/24 16:56 115 H 06/06/24 15:58 115 H 18 143/93 94 L 06/06/24 15:15 130 H 15 131/110 96 06/06/24 15:00 118 H 21 134/120 98 06/06/24 14:45 129 H 20 116/93 95 06/06/24 14:30 120 H 18 140/122 96 06/06/24 14:15 105 H 17 131/109 96 06/06/24 14:00 115 H 21 152/117 97 06/06/24 13:45 124 H 22 152/117 95 06/06/24 13:30 123 H 25 H 147/112 97 06/06/24 13:15 123 H 21 139/107 95 06/06/24 13:00 154 H 25 H 143/119 97 06/06/24 12:45 124 H 17 142/103 98 06/06/24 12:30 107 H 19 143/118 96 Intake and Output 06/06/24 06/07/24 06/07/24 22:59 06:59 14:59 Intake Total 540 240 Output Total 325 Balance -325 540 240 Intake: Oral 540 240 Output: Urine 325 Other: Voiding Method Toilet Toilet # Voids 1 # Bowel Movements 1 Weight 113.398 kg - Constitutional General appearance: average body habitus, cooperative, disheveled - EENT Eyes: PERRLA, poor dentition ENT: normal oropharynx Ears: bilateral: normal - Neck Neck: normal ROM Carotids: bilateral: upstroke normal Thyroid: bilateral: normal size - Respiratory Respiratory: bilateral: diminished - Cardiovascular Rhythm: irregularly irregular Heart sounds: normal: S1, S2 - Gastrointestinal General gastrointestinal: normal bowel sounds, soft - Integumentary Integumentary: normal turgor - Musculoskeletal Musculoskeletal: gait normal, generalized weakness, strength equal bilaterally - Psychiatric Psychiatric: A&O x's 3, appropriate affect, intact judgment & insight Results CBC & Chem 7: 06/06/24 11:14 06/06/24 11:14 Labs: Abnormal Lab Results - Last 24 Hours (Table) 06/06/24 06/07/24 06/07/24 Range/Units 16:28 06:00 11:53 POC Glucose (mg/dL) 118 H 126 H 140 H (70-110) mg/dL Assessment and Plan Assessment: status post mechanical fall with L2 compression fracture and fracture of transverse process L1-L2 with hardware displacement, evaluated by spine surgery patient is scheduled for June 09 for revision Back pain related to above continue pain medications Persistent atrial fibrillation status post IV Cardizem drip now back on oral medication controlled ventricular response now cardiovascular services following patient is back on oral Cardizem as well as the bed rylan metoprolol. Anticoagulation Xeralto on hold due to instability spine surgery Plan: as above Time with Patient: Greater than 30
[2024-06-07 17:02] LABS: Glucose,Whole Blood 121 mg/dL (70-110)
[2024-06-07 20:23] LABS: Glucose,Whole Blood 166 mg/dL (70-110)
[2024-06-08 06:33] LABS: Glucose,Whole Blood 171 mg/dL (70-110)
[2024-06-08 08:08] LABS: Anisocytosis Slight; Basophils % (A) 0 %; Eosinophils # (A) 0.1 k/uL (0-0.7); Eosinophils % (A) 1 %; HCT 32.5 % (39.0-53.0); HGB 9.6 gm/dL (13.0-17.5); Hypochromasia Marked; Lymphocytes % (A) 10 %; MCH 26.8 pg (25.0-35.0); MCHC 29.5 g/dL (31.0-37.0); MCV 90.9 fL (80.0-100.0); Mean Platelet Volume 7.5; Monocytes % (A) 10 %; Neutrophils # (A) 7.2 k/uL (1.3-7.7); Neutrophils % (A) 77 %; Platelet Count 516 k/uL (150-450); Poikilocytosis Slight; RBC 3.58 m/uL (4.30-5.90); WBC 9.4 k/uL (3.8-10.6)
[2024-06-08 08:17] LABS: ALT 27 U/L (4-49); AST 23 U/L (17-59); African American GFR (CKD) >90 (>60 ml/min/1.73 sqM); Albumin 3.1 g/dL (3.5-5.0); Alkaline Phosphatase 141 U/L (38-126); Anion Gap 6 mmol/L; Blood Urea Nitrogen 18 mg/dL (9-20); Calcium 8.4 mg/dL (8.4-10.2); Carbon Dioxide 27 mmol/L (22-30); Chloride 104 mmol/L (98-107); Glucose 143 mg/dL (74-99); Non-African American GFR(CKD) >90 (>60 ml/min/1.73 sqM); Potassium 4.1 mmol/L (3.5-5.1); Sodium 137 mmol/L (137-145); Total Bilirubin 1.2 mg/dL (0.2-1.3); Total Protein 5.5 g/dL (6.3-8.2)
--- NOTE | 2024-06-08 08:51 | P.PN ---
Subjective Progress Note Date: 06/08/24 Principal diagnosis: Hardware failure lumbar spine L2-L3 fracture History of recent [id number] decompression and fusion and open bilateral SI joint fusion Patient seen and examined this morning. Patient is resting in bed with his eyes closed. He is easily awoken with verbal stimuli. Patient does report his pain is managed on current regimen, although he does report increased pain with activity. Patient does admit that he did have a fall post -surgical onto his hands and knees while attempting to maneuver around his cat. Surgical incision to the lumbar spine, small area at the distal end of the incision is open with small amount of light brown drainage. Dressing is intact. Patient denies any fever/chills, nausea/vomiting, or shortness of breath. Patient is scheduled for surgery, Revision [id number] tomorrow, 06/09/24. Patient will be NPO at MA. Encourage use of incentive spirometer. Objective - Vital Signs Vital signs: Vital Signs Temp 98.0 F 06/08/24 06:00 Pulse 94 06/08/24 06:00 Resp 23 06/08/24 06:00 BP 156/99 06/08/24 06:00 Pulse Ox 93 L 06/08/24 06:00 FiO2 Intake & Output 06/07/24 06/08/24 06/08/24 18:59 06:59 18:59 Intake Total 240 222 Output Total 1200 Balance 240 -978 Weight 112.9 kg Intake: Oral 240 222 Output: Urine 1200 Other: Voiding Method Toilet Urinal # Voids 2 2 # Bowel Movements 1 - Exam Physical Examination General: The patient is awake and alert, in no acute distress Skin: Skin is warm and dry with no obvious rashes or lesions. Surgical incision to the lumbar spine, distal end of incision has a small opening with a small amount of light brown drainage. Dressing is intact. Eye: Pupils are equal, round and reactive to light, extra-ocular movements are intact; there is normal conjunctiva bilaterally. Neck: The neck is supple, there is no tenderness and ROM intact. Cardiovascular: There is a regular rate and rhythm. No murmur, rub or gallop is appreciated. Respiratory: Lungs are clear to auscultation, respirations are non-labored, breath sounds are equal. Gastrointestinal: Soft, non-distended, non-tender abdomen. Back: There is no tenderness to palpation in the midline, paralumbar, parathoracic or buttocks region. There is no obvious deformity . Musculoskeletal: ROM limited secondary to pain and stiffness from surgical procedure. Muscle strength in all major muscle groups of bilateral upper extre mities 5/5, bilateral lower extremities 4/5. Neurological: CN 2-12 intact. There are no obvious motor or sensory deficits. Movement and coordination equal and intact. Sensory exam to light touch intact C5-T1 and intact from L2-S1. Reflexes 2/4 in bilateral upper and lower extremities. Negative Hoffmans, babinski, and clonus signs. Psychiatric: Cooperative, appropriate mood & affect, normal judgment. - Labs CBC & Chem 7: 06/08/24 06:17 06/08/24 06:17 Labs: Abnormal Lab Results - Last 24 Hours (Table) 06/07/24 06/07/24 06/07/24 Range/Units 11:53 17:01 20:06 RBC (4.30-5.90) m/uL Hgb (13.0-17.5) gm/dL Hct (39.0-53.0) % MCHC (31.0-37.0) g/dL RDW (11.5-15.5) % Plt Count (150-450) k/uL POC Glucose (mg/dL) 140 H 121 H 166 H (70-110) mg/dL 06/08/24 06/08/24 Range/Units 06:17 06:25 RBC 3.58 L (4.30-5.90) m/uL Hgb 9.6 L (13.0-17.5) gm/dL Hct 32.5 L (39.0-53.0) % MCHC 29.5 L (31.0-37.0) g/dL RDW 16.0 H (11.5-15.5) % Plt Count 516 H (150-450) k/uL POC Glucose (mg/dL) 171 H (70-110) mg/dL Assessment and Plan Assessment: History of recent [id number] posterior lateral decompression and fusion, bilateral open SI joint fusions Hardware failure L2-L3 L2 vertebral body compression fracture L2-L3 right-sided transverse process fractures L2-L3 left-sided pedicle and transverse process fractures Status post recent fall Other medical comorbidities Plan: -Appreciate educational consultant and team management. -NPO at Midnight -Surgery scheduled for tomorrow, 06/09/24, Revision [id number] decompression and fusion -Activity: Limit lifting bending twisting to less than 5 lbs. Use walker or cane if needed for stability. -Brace when up and about, not needed in bed or chair; family is to bring in LSO brace -Pain control: Adequate at this time -Meds: reviewed -GI ppx: senna -DVT PPX: TEDs, SCDs -Hygiene: Shower today with Hibiclens. Maintain dressing clean and dry. Meticulous cleaning after BMs away from the incision site -Encourage IS 10x/hr *I reviewed and discussed this case with my attending Dr. Jeffrey, whom has reviewed this chart and films and is in agreement with assessment and plan of care as outlined above. I have personally seen and examined the patient, performed the documentation and the assessment and plan as written. Number of minutes spent on the visit: 20m.
[2024-06-08] MEDS: SENNOSIDES-DOCUSATE SODIUM 1 EACH TAB PO SCH (09:54)
[2024-06-08] MEDS: METOPROLOL SUCCINATE (ER) 25 MG TAB.ER.24H PO STA (09:54)
[2024-06-08] MEDS: KETOROLAC 15 MG/ML 1 ML VIAL IVP PRN (09:55)
[2024-06-08 11:53] LABS: Glucose,Whole Blood 147 mg/dL (70-110)
--- NOTE | 2024-06-08 13:46 | PN ---
PROGRESS NOTE SUBJECTIVE: He is seen by Dr. Lopez on admission for hardware failure, lumbar spine L2-L3 fracture, history of L2 pelvis decompression fusion of the SI joint and followup postsurgical, understands the , small area of the distal end of the incision is open, small amount of light brown drainage. Dressing is intact. The patient is scheduled for surgery for revision of the T10 pelvis. OBJECTIVE: VITAL SIGNS: Temperature 98, pulse 94, respiratory rate 20 to 23, blood pressure 156/99, and O2 93. LUNGS: Scattered rhonchi. HEART: S1, S2. HEMATOLOGY: Negative for Homans. PSYCH: Fair mood and affect. ENDOCRINE: BMI is over 40. LABS: Reviewed. ASSESSMENT: History of recent L2 pelvis compression, lateral decompression and fusion, bilateral open SI joint fusions, hardware failure L2-L3, compression fracture at L2, right-sided transverse process fractures L2-L3, left-sided pedicle transverse process fractures L2, L3, status post fall. He apparently is going to need some surgery. Continue with pain medicines. Prognosis guarded. MMODL / IJN: [id number] /
[2024-06-08] MEDS: HYDROmorphone 0.5 MG/0.5 ML SYRINGE IVP PRN ×2 (14:11→17:21)
--- NOTE | 2024-06-08 15:00 | P.PN ---
Subjective Progress Note Date: 06/08/24 HISTORY OF PRESENT ILLNESS: This is a 58-year-old male with a past medical history significant for hype rtension, hyperlipidemia, diabetes, and atrial fibrillation. Patient follows in the office with Dr. Menard. We have been asked to see the patient in consultation for atrial fibrillation. Patient examined at the bedside. Recently underwent surgery at the end of April with Dr. Jeffrey. Patient is scheduled for revision surgery on June 09, 2024. Patient presented to the hospital after sustaining a fall at home. Patient denies losing consciousness. Patient currently denies chest pain or pressure. He denies shortness of breath. He is complaining of significant back pain at the time of examination. He remains in atrial fibrillation with heart rate in the 110s. Patient was prescribed met oprolol and Cardizem on an outpatient basis which has not yet been resumed. DIAGNOSTICS: - EKG reveals atrial fibrillation with RVR. - Laboratory data: WBC 9.2. Hemoglobin 9.9. Platelet count 648. Sodium 137. Potassium 4.0. BUN 14. Creatinine 0.47. - Current home cardiac medications include Farxiga 10 mg daily, Xarelto 10 mg at night, Lasix 40 mg daily, Lipitor 40 mg at night. - Most recent echocardiogram obtained in October 2023 revealed ejection fraction 50 to 55%, mild MR, trace to mild TR -Patient underwent Lexiscan stress test in February 2023 revealing small fixed defect along the distal inferior wall extending to the apex. No stress-induced ischemic changes. 06/08 Patient is seen today for in follow-up. No complaints of chest pain, palpitations, shortness of breath. Echocardiogram remains pending. Blood pressure 136/87, heart rate 88, pulse ox 99% on room air. Repeat blood work reveals hemoglobin 9.6. Potassium 4.1, sodium 137, BUN 18 and creatinine 0.61. PHYSICAL EXAM: VITAL SIGNS: Reviewed. GENERAL: Well-developed in no acute distress. HEENT: Head is normocephalic. Pupils are equal, round. Sclerae anicteric. Mucous membranes of the mouth are moist. Neck supple. No JVD or thyromegaly LUNGS: Respirations even and unlabored. Lungs essentially clear to auscultation bilaterally. HEART: Mildly tachycardic. Irregular rate and rhythm. S1 and S2 heard. ABDOMEN: Soft. Nondistended. Nontender. EXTREMITIES: Normal range of motion. No clubbing or cyanosis. Peripheral pulses intact. No lower extremity edema NEUROLOGIC: Awake and alert. Oriented x 3. ASSESSMENT: Status post mechanical fall Recent revision [id number] posterior lateral decompression and fusion with bilateral open SI joint fusions, 05/19/2024 Hardware failure L2-L3 L2 vertebral body compression fracture L2-L3 right-sided transverse process fractures L2-L3 left-sided pedicle and transverse process fractures Persistent atrial fibrillation Hypertension Hyperlipidemia Diabetes PLAN: Obtain 2D echo to assess cardiac structure and function Xarelto remains on hold for upcoming surgery Patient is scheduled to undergo surgery with Dr. Jeffrey on 06/09/2024 Continue current cardiac medications: Atorvastatin 40 mg at bedtime, Farxiga 10 mg daily, Cardizem CD 120 mg daily, Lasix 40 mg oral daily Increase Toprol-XL to 75 mg daily and additional 25 mg to be given now Continue telemetry monitoring There are no absolute contraindications for patient to proceed with surgery from a cardiac standpoint Further recommendations pending patient course Nurse practitioner note has been reviewed by physician. Signing provider agrees with the documented findings, assessment, and plan of care documented by MANAGER OF GLOBAL as a scribe. Objective - Vital Signs Vital signs: Vital Signs Temp 97.6 F 06/08/24 08:45 Pulse 66 06/08/24 09:15 Resp 18 06/08/24 09:15 BP 129/87 06/08/24 08:45 Pulse Ox 94 L 06/08/24 09:03 FiO2 Intake & Output 06/07/24 06/08/24 06/08/24 18:59 06:59 18:59 Intake Total 240 222 Output Total 1200 Balance 240 -978 Weight 112.9 kg Intake: Oral 240 222 Output: Urine 1200 Other: Voiding Method Toilet Urinal # Voids 2 2 # Bowel Movements 1 - Labs CBC & Chem 7: 06/08/24 06:17 06/08/24 06:17 Labs: Abnormal Lab Results - Last 24 Hours (Table) 06/07/24 06/07/24 06/07/24 Range/Units 11:53 17:01 20:06 RBC (4.30-5.90) m/uL Hgb (13.0-17.5) gm/dL Hct (39.0-53.0) % MCHC (31.0-37.0) g/dL RDW (11.5-15.5) % Plt Count (150-450) k/uL Creatinine (0.66-1.25) mg/dL Glucose (74-99) mg/dL POC Glucose (mg/dL) 140 H 121 H 166 H (70-110) mg/dL Alkaline Phosphatase (38-126) U/L Total Protein (6.3-8.2) g/dL Albumin (3.5-5.0) g/dL 06/08/24 06/08/24 06/08/24 Range/Units 06:17 06:17 06:25 RBC 3.58 L (4.30-5.90) m/uL Hgb 9.6 L (13.0-17.5) gm/dL Hct 32.5 L (39.0-53.0) % MCHC 29.5 L (31.0-37.0) g/dL RDW 16.0 H (11.5-15.5) % Plt Count 516 H (150-450) k/uL Creatinine 0.61 L (0.66-1.25) mg/dL Glucose 143 H (74-99) mg/dL POC Glucose (mg/dL) 171 H (70-110) mg/dL Alkaline Phosphatase 141 H (38-126) U/L Total Protein 5.5 L (6.3-8.2) g/dL Albumin 3.1 L (3.5-5.0) g/dL
--- NOTE | 2024-06-08 16:36 | CA ---
Transthoracic Echo Report Name: Kvng Molina Age: 58 Gender: M : 1965 Exam Date: 06/08/2024 14:44 Exam Location: [facility] Ht (in): 68 Wt (lb): 250 Ordering Physician: Eugenie Traylor Attending/Referring Phys: [id number], [address] Painter Helper Brittany Carreno, OMER Procedure CPT: Indications: LV function Cardiac Hx: Technical Quality: Poor, Technically difficult study Contrast 1: Definity Total Dose (mL): Contrast 2: Total Dose (mL): MEASUREMENTS (Male / Female) Normal Values 2D ECHO LV Diastolic Diameter PLAX 4.4 cm 4.2 - 5.9 / 3.9 - 5.3 cm LV Systolic Diameter PLAX 3.2 cm IVS Diastolic Thickness 1.3 cm 0.6 - 1.0 / 0.6 - 0.9 cm LVPW Diastolic Thickness 1.3 cm 0.6 - 1.0 / 0.6 - 0.9 cm LV Relative Wall Thickness 0.6 RV Internal Dim ED PLAX 3.8 cm LA Systolic Diameter LX 4.7 cm 3.0 - 4.0 / 2.7 - 3.8 cm M-MODE Aortic Root Diameter MM 3.2 cm LA Systolic Diameter MM 5.1 cm LA Ao Ratio MM 1.6 AV Cusp Separation MM 2.1 cm DOPPLER AV Peak Velocity 142.2 cm/s AV Peak Gradient 8.1 mmHg AV Mean Velocity 110.9 cm/s AV Mean Gradient 5.3 mmHg AV Velocity Time Integral 29.2 cm TR Peak Velocity 317.7 cm/s TR Peak Gradient 40.4 mmHg Right Ventricular Systolic Press 50.4 mmHg FINDINGS Left Ventricle Left ventricular ejection fraction is estimated at 25-30 %. Mildly increased septal wall thickness. Left ventricular cavity size normal. Global left ventricular hypokinesis. Right Ventricle Mild right ventricular dilatation. Moderate pulmonary hypertension. Right Atrium Mild right atrial dilatation. Left Atrium Mildly increased left atrial diameter. Mitral Valve Structurally normal mitral valve. Mild mitral regurgitation. No mitral stenosis. Mitral valve thickened. Aortic Valve Trileaflet aortic valve. No aortic valve stenosis or regurgitation. Thickened aortic valve without stenosis. Tricuspid Valve Structurally normal tricuspid valve. Mild tricuspid regurgitation. Pulmonic Valve Structurally normal pulmonic valve. Trace pulmonic regurgitation. Pericardium No pericardial or pleural effusion. Echo free space anterior to the right ventricle likely represents a fat pad. Aorta Normal size aortic root and proximal ascending aorta. CONCLUSIONS Left ventricular ejection fraction 25-30% Mildly increased left ventricular thickness RVSP 50 Mild mitral regurgitation Mild tricuspid regurgitation Previewed by: Dr. Luis Carlos Kim DO (Electronically Signed) Final Date: 08 June 2024 16:35
[2024-06-08] MEDS: FERROUS SULFATE 325 MG TAB PO SCH (17:00)
[2024-06-08 17:05] LABS: Glucose,Whole Blood 263 mg/dL (70-110)
[2024-06-08 20:03] LABS: Glucose,Whole Blood 141 mg/dL (70-110)
[2024-06-09 05:38] LABS: Glucose,Whole Blood 104 mg/dL (70-110)
[2024-06-09] MEDS: METOPROLOL SUCCINATE (ER) 25 MG TAB.ER.24H PO SCH ×2 (08:57→21:51)
[2024-06-09] MEDS: IV FLUID CONTINUATION 900 ML IV ONE (11:13)
[2024-06-09 11:23] LABS: Glucose,Whole Blood 115 mg/dL (70-110)
[2024-06-09] MEDS: FUROSEMIDE 10 MG/ML 4 ML VIAL IV STA (11:42)
[2024-06-09] MEDS: ONDANSETRON 4 MG/2 ML VIAL IVP STA (11:43)
[2024-06-09] MEDS: MIDAZOLAM 2 MG/2 ML VIAL IVP ONE (12:43)
--- NOTE | 2024-06-09 12:52 | P.PN ---
Progress Note - Text Progress Note Date: 06/09/24 Spine Surgery Clinical and Risk Review Kvng Molina is a 58 yo male presenting for evaluation of back pain and debility with LE weakness after several falls at home and hospital after his L2-Pelvis decompression and fusion. Three weeks ago he had this done and was recovered and eventually sent home on POD5. He was at home and followed up in office. Upon follow up it was found that his top screws at L2 had failed and that he had a fracture at L2 and L1. He was boarded for surgery. He went home and had another fall and presented to the ED with increased pain and debility. He was found to have now multiple fractures with loose screws at L2, L3, fracture at L2, L3 L1-2 region with instability. He was admitted and worked up for this and cleared for surgery. It was my pleasure to have seen and examined Kvng Molina. In our visit today we have had a chance to go over subjective complaints, physical examination findings and treatments including the natural course history without intervention and various interventional options. The patients imaging demonstrates multiple new fractures L2, L3, L1-2 region with kypohosis, proximal junctional failure, hardware failure. There is instability at L1-2 region. There is ankylosis at T9-10 region. No other fracturesnoted. The lower hardware is intact. On physical exam, Kvng Molina demonstrates severe low back pain, increased pain, debility and inability to perform ADLs as well as increased leg weakness and pain along with dehiscence of the lower 2 cm of his wound due to falls and splitting the wound open. Some drainage from the area as well. 4-/5 in LE b/l with decreased ambulation tolerance. 2/4 DTR LE. 3/4 UE due to previous SCI and myelopathy. NO changes here. SILT L2-S2 at this time. No BB issues. I have explained to the patient that as their condition progresses it will cause further neurological deficits and eventual paralysis. Based on the patients imaging, physical exam, and the rapid progression and disabling nature of their symptoms, at this time I recommend surgery in the form or a: Open treatment L1-2 fracture with revision [id number] decompression and fusion with stabilization. I discussed the risk and benefits of this procedure at length with Kvng Molina. The patient agreed to considered pursuing the procedure abovementioned. Prior to surgery, she should follow up with her PCP (Cardio, ID, IM etc) for clearance. Questions were invited and answered, and the patient wishes to proceed as outlined below. Currently, I am recommendin. Open treatment L1-2 fracture with revision [id number] decompression and fusion with stabilizationOpen treatment L1-2 fracture with revision [id number] decompression and fusion with stabilization 2. Follow up with PCP for surgical clearance 3. Review of surgical risks and benefits as well as an educational packet on the proposed surgical procedure. Risks: All surgical procedures come with inherent risks, including those related to positioning, anesthesia, intraoperative findings, and postoperative complications. It is important to understand that surgery does not come with any guarantee of a successful outcome as complications and adverse events are always possible. The patient was given a handout in office today discussing the surgical procedure and risks associated with the intervention, both of which were discussed with the patient. These risks include but are not limited to the following: * Experiencing same, different or even worse symptoms in back, neck, arms, or legs compared to before surgery. * Requiring further surgery or other forms of treatment presently or at some time in the future at same or other levels of the intended spine surgery. * On an extreme but fortunately relatively rare basis severe complication such as blindness, stroke, heart attack, temporary and/or permanent nerve injury, paralysis, coma, or may occur, sometimes without known explanation. * Surgical complications may include but are not limited to risk of infection, fluid accumulation in the surgical dissection site, including a seroma or hematoma, that requires additional surgery, wound drainage, bleeding, new numbness or weakness, vision changes/loss, spinal fluid leakage, non-healing and/or infected incision, headaches, difficulty or inability to swallow, hoarseness, hemopneumothorax, pneumothorax, impotence, retrograde ejaculation, vaginal dryness; injury to nerves, spinal cord, blood vessels, lymphatics or other vital organs (i.e., bowel injury, injury to the great vessels); heterotopic bone formation; complications related to the hardware such as screws, rods, cages including misplaced hardware, device failure, instrumentation at the wrong spine level, hardware fracture/breakage, or hardware loosening; vertebral failure of the spinal column above or below the newly placed hardware; retained surgical instrumentations or devices and the need for further surgery. * Medical risks of the planned spine surgery include but are not limited to generalized Infections to the whole body or local areas outside of the surgical site (sepsis), heart attack, bleeding, anaphylaxis, meningitis, seizure, epilepsy, hearing loss, burn barnes, laceration of the head or other areas of the body, bruising, hypersensitivity of the skin, bladder over distension; allergic reaction; shoulder injury related to positioning; fat, blood and air clots to other areas of the body like heart, lungs, brain; failure of internal organs such as lungs, kidneys, liver and excessive blee ding. If blood transfusions are necessary, note that transfusions may cause intolerance reactions such as anaphylaxis or other complex reactions. * Despite best efforts, the results of spine surgery might not heal in terms of bone, soft tissues such as skin, fascia, ligaments, and joints. Additionally, in order to achieve best possible results, spine surgery may be carried out beyond the initially planned levels and involve decompression, fusion including insertion of hardware at levels other than the original intended area of surgical interest change some portions of the procedure in order to ensure the best possible outcomes. * With spine surgery and spinal fusion, there are different off label uses of instrumentation (devices, implants and hardware) as well as biological substances (bone morphogenic proteins, demineralized bone matrix) as well as using extra bone from allograft sources (i.e. cadaver bone) or autograft (iliac crest bone, ribs, or the spine itself). The patient has been given information about these practices and their inherent risks and benefits. The patient has had a chance to review all the listed information, has been given print outs detailing this information, and has had all his/her questions answered to their satisfaction. It was my pleasure to have seen and examined Kvng Molina. In our visit today we have had a chance to go over my understanding of our patient's current condition, the natural course history without intervention and various interventional options. Questions were invited and answered, and the patient wi shes to proceed as outlined above. I have seen and examined the patient for 25 minutes and we have spent more than 50% of the time in repeat and detailed counseling about the patient's condition, its natural course history with out and as much as can be predicted with surgery and re-review of various surgical treatment options. In conclusion, Kvng Molina and requested we proceed with the above suggested surgery and are willing to accept risks and limitations of the suggested surgery as nature of the disease process and our best attempts at treatment for the condition. Thank you again for allowing us to be part of your patient's care. Please don't hesitate to contact me if you have any further questions. Signed and authenticated by: Kenny Azevedo [facility] [address] [place] [address]
[2024-06-09] MEDS ORDERED: MIDAZOLAM 2 MG/2 ML VIAL ONE (13:36)
[2024-06-09] MEDS ORDERED: CALCIUM CHLORIDE 100 MG/ML 10 ML SYRINGE ONE (13:36)
[2024-06-09] MEDS ORDERED: TRANEXAMIC 1,000 MG/100ML-NACL PREMIX BAG ONE (13:36)
[2024-06-09] MEDS ORDERED: ROCURONIUM 10 MG/ML (5 ML VIAL) IV ONE (13:36)
[2024-06-09] MEDS ORDERED: SUCCINYLCHOLINE CHLORIDE 200 MG/10 ML VIAL IV ONE (13:36)
[2024-06-09] MEDS ORDERED: ALBUMIN HUMAN 5% (25gm) 500 ML VIAL IVPB ONE (13:36)
[2024-06-09] MEDS ORDERED: SODIUM BICARB 8.4% 50 ML SYR (1 MEQ/ML) ONE (13:36)
[2024-06-09] MEDS ORDERED: PHENYLEPHRINE 10 MG/ML VIAL ONE (13:36)
[2024-06-09] MEDS ORDERED: PHENYLEPHRINE-0.9% NACL SYG 1,000 MCG/10 ML SYRINGE ONE (13:36)
[2024-06-09] MEDS ORDERED: LIDOCAINE 1% INJ 10MG/ML (20 ML MDV) ONE (13:36)
[2024-06-09] MEDS ORDERED: ETOMIDATE 2 MG/ML 10 ML VIAL ONE (13:36)
[2024-06-09] MEDS ORDERED: HYDROmorphone (PF) 1 MG/ML ONE (13:36)
[2024-06-09] MEDS ORDERED: fentaNYL (PF) 50 MCG/ML 2 ML AMP ONE (13:36)
--- NOTE | 2024-06-09 13:54 | P.ANPRN ---
Procedure Note - Anesthesia - Invasive Line Left Arterial Line Time Out Performed: Yes Date of Procedure: 06/09/24 Time of Procedure: 12:42 Location of Patient: PreOp Preparation: Sterile Prep Arterial Line Location: Radial Ultrasound Used: Yes Purpose - Visualization and Identification of Vasculature: Yes Needle Guage: 20 Image Stored and Saved: Yes Narrative: Left radial arterial line placed under sterile conditions. Needle guidance w/ u/s. Seldinger technique
--- NOTE | 2024-06-09 14:07 | PN ---
PROGRESS NOTE SUBJECTIVE: This is a 58-year-old white male. OBJECTIVE: VITAL SIGNS: Temperature 98, pulse 105, O2 93 on room air, respiratory rate 16 to 18, blood pressure 130s/80s. Vital signs reviewed. LUNGS: Scattered rhonchi and wheeze. CARDIOVASCULAR: S1, S2. ENDOCRINE: BMI is over 40. ABDOMEN: Distended. EXTREMITIES: 2+ edema. He is going to get surgery today for his back for multiple fractures. Sugars are mid 100s. Repeat echocardiogram was seen and reviewed. He continues on his breathing treatments. Echo shows moderate pulmonary hypertension. Ejection fraction is 25% to 30%. His systolic CHF, COPD, pulmonary hypertension. Lumbar disk disease with lumbar fractures, iliac fracture, going to get surgery today. Revision of surgery as he has multiple fractures of lower back. Continue pain control. MMODL / IJN: [id number] /
[2024-06-09] MEDS: THROMBIN (BOVINE) 5,000 UNIT VIAL TOPICAL ONE (14:23)
[2024-06-09] MEDS: ceFAZolin 3,000 MG in SODIUM CHLORIDE 0.9% IRRIGATIO 3,000 ML IRRIGATION ONE (14:23)
[2024-06-09] MEDS: GENTAMICIN 80 MG in SODIUM CHLORIDE 0.9% IRRIGATIO 3,000 ML IRRIGATION ONE (14:23)
--- NOTE | 2024-06-09 14:31 | P.PN ---
Subjective Progress Note Date: 06/09/24 HISTORY OF PRESENT ILLNESS: This is a 58-year-old male with a past medical history significant for hype rtension, hyperlipidemia, diabetes, and atrial fibrillation. Patient follows in the office with Dr. Menard. We have been asked to see the patient in consultation for atrial fibrillation. Patient examined at the bedside. Recently underwent surgery at the end of April with Dr. Jeffrey. Patient is scheduled for revision surgery on June 09, 2024. Patient presented to the hospital after sustaining a fall at home. Patient denies losing consciousness. Patient currently denies chest pain or pressure. He denies shortness of breath. He is complaining of significant back pain at the time of examination. He remains in atrial fibrillation with heart rate in the 110s. Patient was prescribed met oprolol and Cardizem on an outpatient basis which has not yet been resumed. DIAGNOSTICS: - EKG reveals atrial fibrillation with RVR. - Laboratory data: WBC 9.2. Hemoglobin 9.9. Platelet count 648. Sodium 137. Potassium 4.0. BUN 14. Creatinine 0.47. - Current home cardiac medications include Farxiga 10 mg daily, Xarelto 10 mg at night, Lasix 40 mg daily, Lipitor 40 mg at night. - Most recent echocardiogram obtained in October 2023 revealed ejection fraction 50 to 55%, mild MR, trace to mild TR -Patient underwent Lexiscan stress test in February 2023 revealing small fixed defect along the distal inferior wall extending to the apex. No stress-induced ischemic changes. 06/08 Patient is seen today for in follow-up. No complaints of chest pain, palpitations, shortness of breath. Echocardiogram remains pending. Blood pressure 136/87, heart rate 88, pulse ox 99% on room air. Repeat blood work reveals hemoglobin 9.6. Potassium 4.1, sodium 137, BUN 18 and creatinine 0.61. 06/09 Patient states that he is scheduled for surgery with orthopedics later today. Echocardiogram reviewed with the patient. Medication changes made due to findings. Blood pressure 133/86, heart rate 78, pulse ox 97% on room air. Echocardiogram reveals EF of 25 to 30%, RVSP 50, mild mitral digitation, mild tricuspid regurgitation. PHYSICAL EXAM: VITAL SIGNS: Reviewed. GENERAL: Well-developed in no acute distress. HEENT: Head is normocephalic. Pupils are equal, round. Sclerae anicteric. Mucous membranes of the mouth are moist. Neck supple. No JVD or thyromegaly LUNGS: Respirations even and unlabored. Lungs essentially clear to auscultation bilaterally. HEART: Mildly tachycardic. Irregular rate and rhythm. S1 and S2 heard. ABDOMEN: Soft. Nondistended. Nontender. EXTREMITIES: Normal range of motion. No clubbing or cyanosis. Peripheral pulses intact. No lower extremity edema NEUROLOGIC: Awake and alert. Oriented x 3. ASSESSMENT: Status post mechanical fall Recent revision [id number] posterior lateral decompression and fusion with bilateral open SI joint fusions, 05/19/2024 Hardware failure L2-L3 L2 vertebral body compression fracture L2-L3 right-sided transverse process fractures L2-L3 left-sided pedicle and transverse process fractures Persistent atrial fibrillation Hypertension Hyperlipidemia Diabetes Cardiomyopathy unknown if ischemic or nonischemic PLAN: Xarelto remains on hold for upcoming surgery Patient is scheduled to undergo surgery with Dr. Jeffrey on 06/09/2024 Continue current cardiac medications: Atorvastatin 40 mg at bedtime, Farxiga 10 mg daily, Lasix 40 mg oral daily Discontinue Cardizem Increase Toprol XL to 150 mg twice daily with an additional 50 mg given now Start patient on amiodarone 400 mg twice daily for 1 week followed by 400 mg daily There are no absolute contraindications for patient to proceed with surgery from a cardiac standpoint Further recommendations pending patient course Nurse practitioner note has been reviewed by physician. Signing provider agrees with the documented findings, assessment, and plan of care documented by TALENT ANALYST as a scribe. Objective - Vital Signs Vital signs: Vital Signs Temp 97.9 F 06/09/24 08:10 Pulse 81 06/09/24 08:19 Resp 18 06/09/24 08:19 BP 121/92 06/09/24 08:10 Pulse Ox 97 06/09/24 08:10 FiO2 Intake & Output 06/08/24 06/09/24 06/09/24 18:59 06:59 18:59 Intake Total 840 10 Balance 840 10 Weight 114.5 kg Intake: IV 10 Invasive Line 2 10 Oral 840 0 Other: Voiding Method Urinal Urinal Urinal # Voids 3 0 2 # Bowel Movements 0 - Labs CBC & Chem 7: 06/08/24 06:17 06/08/24 06:17 Labs: Abnormal Lab Results - Last 24 Hours (Table) 06/08/24 06/08/24 06/08/24 Range/Units 11:51 17:02 18:47 POC Glucose (mg/dL) 147 H 263 H (70-110) mg/dL Crossmatch See Detail 06/08/24 Range/Units 20:01 POC Glucose (mg/dL) 141 H (70-110) mg/dL Crossmatch
[2024-06-09] MEDS: TOBRAMYCIN SULFATE 1.2 GM VIAL MISCELLANE ONE (15:03)
[2024-06-09] MEDS: VANCOMYCIN 1,000 MG VIAL MISCELLANE ONE ×2 (15:03→17:39)
[2024-06-09] MEDS: VANCOMYCIN 1,750 MG in SODIUM CHLORIDE 0.9% 500 ML 500 ML IVPB STA (15:04)
[2024-06-09 15:18] LABS: ABG Base Excess 1.3 mmol/L; ABG Glucose Whole Blood 115 mg/dL (75-99); ABG HCO3 26 mmol/L (21-25); ABG Hematocrit 27 % (34.0-46.0); ABG Ionized Calcium 4.4 mg/dL (4.5-5.3); ABG Lactic Acid Whole Blood 1.3 mmol/L (0.5-1.6); ABG PCO2 43 mmHg (35-45); ABG PH 7.39 (7.35-7.45); ABG PO2 115 mmHg (83-108); ABG Sodium Whole Blood 137 mmol/L (135-146); ABG TCO2 25 mmol/L (19-24); Allen Test Performed? Yes
[2024-06-09] MEDS: LACTATED RINGERS 1,000 ML IV ONE (15:30)
[2024-06-09] MEDS: IOPAMIDOL M200 10 ML VIAL MISCELLANE ONE (16:29)
[2024-06-09 17:16] LABS: ABG Base Excess 2.3 mmol/L; ABG Glucose Whole Blood 119 mg/dL (75-99); ABG HCO3 29 mmol/L (21-25); ABG Hematocrit 31 % (34.0-46.0); ABG Ionized Calcium 5.1 mg/dL (4.5-5.3); ABG Lactic Acid Whole Blood 1.3 mmol/L (0.5-1.6); ABG PCO2 57 mmHg (35-45); ABG PH 7.32 (7.35-7.45); ABG PO2 67 mmHg (83-108); ABG Potassium Whole Blood 4.1 mmol/L (3.4-4.5); ABG Sodium Whole Blood 139 mmol/L (135-146); ABG TCO2 28 mmol/L (19-24); Allen Test Performed? Yes
[2024-06-09 17:59] LABS: ABG Base Excess 1.8 mmol/L; ABG Glucose Whole Blood 115 mg/dL (75-99); ABG HCO3 28 mmol/L (21-25); ABG Hematocrit 30 % (34.0-46.0); ABG Ionized Calcium 4.8 mg/dL (4.5-5.3); ABG Lactic Acid Whole Blood 1.1 mmol/L (0.5-1.6); ABG PCO2 48 mmHg (35-45); ABG PH 7.37 (7.35-7.45); ABG PO2 74 mmHg (83-108); ABG Potassium Whole Blood 4.1 mmol/L (3.4-4.5); ABG Sodium Whole Blood 139 mmol/L (135-146); ABG TCO2 26 mmol/L (19-24); Allen Test Performed? Yes
--- NOTE | 2024-06-09 18:59 | P.PN ---
Progress Note - Text Progress Note Date: 06/09/24 Brief Post Op: Surgeon: Rachele Pre op dx;hARDWARE FAILURE WITH l1 TO l3 FRACTURES STATUS POST t10 TO PELVIS Post op dx: same Procedure: open treatment L1 2 and 3 fractures with revision T10 to pelvis posterior lateral instrumented fusion with hardware removal Anesthesia: GETA EBL: 800 mL Patient is status post status post 4 units PRBC intraop Fluids: 3500 mL UO: 4 50 mL Dispo: Stable to ICU Post op Plan: Admit to ICU Pain Control PRN, IV sedation and paralytics per ICU protocols ICU management appreciated Maintain MA P 80s and above Transfuse when necessary for vitals. Post operative noncontrasted CT scan when able in stable Encourage ambulation when awake IS 10x/hr Teds/SCDs Pain control No brace needed for ambulation Drain to full suction, Record Drain output Will follow closely
[2024-06-09] MEDS ORDERED: MAGNESIUM HYDROXIDE 2,400 MG/30 ML CUP PO PRN (19:00)
[2024-06-09] MEDS ORDERED: ONDANSETRON 4 MG/2 ML VIAL IVP PRN (19:00)
[2024-06-09 19:18] LABS: Glucose,Whole Blood 117 mg/dL (70-110)
[2024-06-09] MEDS: FORMOTEROL FUMARATE 20 MCG/2 ML NEBU INHALATION SCH (19:25)
--- NOTE | 2024-06-09 19:30 | FL ---
EXAMINATION TYPE: XR lumbar spine 2 or 3V Intraoperative/procedural fluoroscopic services were provid ed. Total fluoroscopy time is 1 minute 46 seconds with a total of 11 submitted images to PACS. Please see the operative/procedural note for further details. DAP: [id number] cGycm2
[2024-06-09 19:35] LABS: ABG Base Excess 0.1 mmol/L; ABG HCO3 28 mmol/L (21-25); ABG Oxygen Saturation 93.8 % (94-97); ABG PCO2 61 mmHg (35-45); ABG PH 7.27 (7.35-7.45); ABG PO2 80 mmHg (83-108); ABG TCO2 30 mmol/L (19-24); Allen Test Performed? Yes
--- NOTE | 2024-06-09 20:21 | XR ---
EXAMINATION TYPE: XR chest 1V portable DATE OF EXAM: 06/09/2024 8:10 PM CLINICAL INDICATION:Male, 58 years old with history of Tube placement; [facility] COMPARISON: Chest radiographs from 05/20/2024. TECHNIQUE: XR chest 1V portable Frontal view of the chest. FINDINGS: Lungs/Pleura: There is no evidence of pleural effusion, focal consolidation, or pneumothorax. Pulmonary vascularity: Pulmonary vascular congestion. Heart/mediastinum: Cardiomediastinal silhouette is enlarged and stable. Musculoskeletal: Fixation hardware in the spine appears intact.r Endotracheal tube endotracheal tube terminates 4.3 cm above the shashank. IMPRESSION: 1. Endotracheal tube in appropriate position. 2. Cardiomegaly with pulmonary vascular congestion suggested.
[2024-06-09] MEDS: CALCIUM GLUCONATE IN NACL 1 GM in SALINE 1 100ML.BAG IVPB ONE (20:48)
[2024-06-09] MEDS: CHLORHEXIDINE GLUCONATE 15 ML CUP MUCOUS MEM SCH (21:50)
[2024-06-09] MEDS: NOREPINEPHRINE 4 MG in SODIUM CHLORIDE 0.9% 250 ML IV SCH (22:14)
[2024-06-09] MEDS ORDERED: NALOXONE 0.4 MG/ML 1 ML VIAL IV PRN (23:12)
[2024-06-10 01:13] LABS: HCT 36.8 % (39.0-53.0); HGB 11.4 gm/dL (13.0-17.5); Hypochromasia Marked; MCH 28.7 pg (25.0-35.0); MCHC 30.9 g/dL (31.0-37.0); MCV 93.1 fL (80.0-100.0); Mean Platelet Volume 7.6; Platelet Count 349 k/uL (150-450); Poikilocytosis Moderate; RBC 3.95 m/uL (4.30-5.90); RDW 15.7 % (11.5-15.5)
[2024-06-10 01:27] LABS: African American GFR (CKD) >90 (>60 ml/min/1.73 sqM); Anion Gap 7 mmol/L; Blood Urea Nitrogen 15 mg/dL (9-20); Calcium 8.6 mg/dL (8.4-10.2); Carbon Dioxide 24 mmol/L (22-30); Chloride 106 mmol/L (98-107); Glucose 112 mg/dL (74-99); Non-African American GFR(CKD) >90 (>60 ml/min/1.73 sqM); Potassium 4.4 mmol/L (3.5-5.1); Sodium 137 mmol/L (137-145)
[2024-06-10] MEDS: HYDROmorphone 1 MG/ML 1 ML SYRINGE IVP PRN (01:34)
--- NOTE | 2024-06-10 01:39 | P.CNPUL ---
History of Present Illness Consult date: 06/10/24 Requesting physician: Kenny Jeffrey Reason for consult: other (ICU management) Chief complaint: Fall History of present illness: Patient is a 58-year-old white male with past medical history significant for obstructive sleep apnea with home CPAP, COPD, ex tobacco smoker, marijuana smoker, atrial fibrillation with previous cardioversion and anticoagulated on Xarelto, diabetes mellitus, hypertension, heart failure, and previous spinal surgeries. His primary care provider is Dr. Deuce Brito. He is currently intubated to the mechanical ventilator, unable to provide any information for H PI. Of note, patient recently underwent an L2 to pelvis posterior lateral decompression and fusion on 05/19/2024 at [facility]. During this admission, he initially was recovered in the intensive care unit. Technically, difficult to extubate, and did require BiPAP support immediately after extubation. He was eventually discharged home on 05/26/2024. Patient returned the emergency department on 06/06/2024. On review of the ER documentation, he had a fall while at home. CT of the lumbar spine demonstrated new compression fracture of L2 vertebral body with compression of the vertebral body down to the pedicle screws bilaterally and loosening the left pedicle screw. New left pedicle/transverse process of L2 and L3 fractures around the hardware with mild displacement. Fractures of the right transverse process of L2 and L3. Likely postsurgical subcutaneous gas in the surgical bed. Patient underwent revision thoracic T10 to pelvis decompression fusion yesterday. Intraoperatively, patient had an EBL of 1 L. He has received a total of 5 units of PRBCs, 1 FFP, and 1 pack platelets. He was sent to the intensive care unit postoperatively. He remains on the mechanical ventilator. Chest x-ray shows the endotracheal tube approximately 4.3 cm above the shashank. There is cardiomegaly with pulmonary vascular congestion suggested. No pleural effusions, pneumothoraces, focal consolidations. Initial ABG had a PaO2 of 80, pCO2 of 61, pH of 7.27. This was done on original ventilator settings of assist-control, respiratory rate 14, tidal volume 500, FiO2 1 9%, and PEEP of 5. My supervising physician is already increased the patient's respiratory rate to 20. He is currently synchronous with mechanical ventilator. There is a moderate amount of clear to white endotracheal secretions. Peak pressures 23. He is sedated with propofol which is currently infusing at 50 mcg/kg/min. He is fairly unarousable. Will withdraw to painful stimuli in all 4 extremities. There is also norepinephrine infusing at 0.02 mcg/kg/min. There is a MAP goal of 80 mmHg to support HAT SIZER per fusion. LR is infusing at 10 MLS per hour. There is a Hemovac with a total of 220 serosanguineous output since surgery. We are awaiting postoperative labs. Preoperatively, CBC: WBC count 9.4, hemoglobin 9.6, hematocrit 32.5, platelets 516. Preoperative CMP: Sodium 137, potassium 4.1, chloride 104, serum bicarb 27, BUN 18, creatinine 0.61, glucose 143. LFTs unremarkable. Receiving prophylactic cefazolin. Note that preoperatively, patient did have a cardiac evaluation. Repeat echocardiogram shows a severely reduced left ventricular ejection fraction of 25 to 30% as well as mild mitral and tricuspid regurgitation. Heart rhythm is atrial fibrillation with controlled ventricular response. Normally anticoagulated on Xarelto, however, this is on hold for surgery. Review of Systems ROS unobtainable: due to endotracheal tube Past Medical History Past Medical History: Atrial Fibrillation, Heart Failure, COPD, Diabetes Mellitus, GERD/Reflux, Hypertension, Musculoskeletal Disorder, Sleep Apnea/CPAP/BIPAP Additional Past Medical History / Comment(s): DDD, spinal spondylosis, right arm numbness down to fingers, bilateral knees occasionally buckle/wears right knee brace at times, chronic pain, no CPAP use. History of Any Multi-Drug Resistant Organisms: MRSA Date of last positivie culture/infection: 1999 MDRO Source:: face Past Surgical History: Appendectomy, Cholecystectomy, Orthopedic Surgery Additional Past Surgical History / Comment(s): Cervical fusion/cage with bone from hip, back surgery d/t congenital defect, multiple sutures to face due to c kaur saw accident, facial MRSA with surgery to remove, colonoscopy, L2-Pelvis decompression and fusion, bilateral SI joint fusions. Past Anesthesia/Blood Transfusion Reactions: Previous Problems w/ Anesthesia Additional Past Anesthesia/Blood Transfusion Reaction / Comment(s): "Combative when coming out anesthesia." Pt has never had a blood transfusion. Past Psychological History: Anxiety, Depression, PTSD Additional Psychological History / Comment(s): Pt resides with exspouse. Smoking Status: Former smoker Past Alcohol Use History: None Reported Additional Past Alcohol Use History / Comment(s): Started smoking in 1979 and was a ppd smoker, quit 01/2023. Past Drug Use History: Marijuana Additional Drug Use History / Comment(s): USES MARIJUANA DAILY BOTH SMOKING AND EDIBLES-INSTRUCTED TO REFRAIN FROM USE FOR AT LEAST 24 HOURS PRIOR TO PROCEDURE. - Past Family History Mother Family Medical History: Deep Vein Thrombosis (DVT) Sister(s) Family Medical History: Cancer Additional Family Medical History / Comment(s): Colon cancer X2 sisters. Father Family Medical History: Myocardial Infarction (RI) Additional Family Medical History / Comment(s): at 43 yrs of [place]. Medications and Allergies Home Medications Medication Instructions Recorded Confirmed Type PARoxetine HCL [Paxil] 40 mg PO HS 12/21/19 06/06/24 History buPROPion HCL [buPROPion HCL SR] 150 mg PO BID 12/21/19 06/06/24 History metFORMIN HCL [Glucophage] 500 mg PO BID 12/21/19 06/06/24 History Gabapentin 800 mg PO QID 11/06/22 06/06/24 History Atorvastatin [Lipitor] 40 mg PO HS 03/01/23 06/06/24 History Budesonide [Pulmicort] 1 mg INHALATION RT-BID 11/18/23 06/06/24 History HYDROcodone/APAP 10-325MG [[place] 1 tab PO QID PRN 11/18/23 06/06/24 History 10-325] Ipratropium Nebulized [Atrovent 0.5 mg INHALATION RT-QID 11/18/23 06/06/24 History Nebulized 0.2 MG/ML] Montelukast [Singulair] 10 mg PO HS 11/18/23 06/06/24 History Omeprazole [PriLOSEC] 40 mg PO DAILY 11/18/23 06/06/24 History Dapagliflozin Propanediol [Farxiga] 10 mg PO DAILY #30 tab 11/20/23 06/06/24 Rx Furosemide [Lasix] 40 mg PO DAILY #30 tab 11/20/23 06/06/24 Rx Doxycycline [Vibramycin] 100 mg PO BID 05/18/24 06/06/24 History Cyclobenzaprine [Flexeril] 10 mg PO BID PRN #30 tab 05/26/24 06/06/24 Rx Rivaroxaban [Xarelto] 10 mg PO W/SUPPER 06/06/24 06/06/24 History cefaDROXiL [Duricef] 500 mg PO Q12HR 06/06/24 06/06/24 History oxyCODONE-APAP 10-325MG [Percocet 1 tab PO Q6HR PRN 06/06/24 06/06/24 History 10-325 mg] Allergies Allergy/AdvReac Type Severity Reaction Status Date / Time No Known Allergies Allergy Verified 06/09/24 11:13 Physical Exam Vitals: Vital Signs Temp Pulse Pulse Resp BP BP Pulse Ox 06/10/24 00:00 98.9 F 89 21 98 06/09/24 23:56 98.9 F 102 H 23 127/72 98 06/09/24 23:47 99.1 F 98 21 132/78 98 06/09/24 23:40 06/09/24 23:27 99.0 F 89 21 133/86 99 06/09/24 23:00 91 22 100 06/09/24 22:35 99.0 F 98 23 120/74 06/09/24 22:00 112 H 23 96 06/09/24 21:00 112 H 20 95 06/09/24 20:35 98.1 F 105 H 23 108/68 06/09/24 20:15 98.4 F 105 H 21 115/69 95 06/09/24 20:00 97.1 F L 113 H 20 87 L 06/09/24 19:58 98.1 F 115 H 14 120/77 96 06/09/24 19:55 122 H 06/09/24 19:41 106 H 06/09/24 19:40 109 H 06/09/24 19:30 115 H 06/09/24 19:20 06/09/24 18:43 06/09/24 13:12 98.0 F 78 14 133/86 97 06/09/24 13:08 98.0 F 95 16 133/85 97 06/09/24 11:15 98.0 F 105 H 16 128/83 93 L 06/09/24 10:58 98.0 F 87 16 132/90 94 L 06/09/24 10:55 95 18 133/79 97 06/09/24 10:51 96.5 F L 120 H 18 132/80 97 06/09/24 08:19 81 18 07/16/24 08:10 97.9 F 92 17 121/92 97 06/09/24 08:09 84 18 94 L 06/09/24 08:00 92 18 06/09/24 04:00 97.7 F 92 20 104/68 97 06/09/24 02:00 103 H 20 FiO2 06/10/24 00:00 80 06/09/24 23:56 06/09/24 23:47 06/09/24 23:40 80 06/09/24 23:27 06/09/24 23:00 06/09/24 22:35 06/09/24 22:00 06/09/24 21:00 06/09/24 20:35 06/09/24 20:15 06/09/24 20:00 100 06/09/24 19:58 06/09/24 19:55 06/09/24 19:41 06/09/24 19:40 06/09/24 19:30 06/09/24 19:20 100 06/09/24 18:43 100 06/09/24 13:12 06/09/24 13:08 06/09/24 11:15 06/09/24 10:58 06/09/24 10:55 06/09/24 10:51 06/09/24 08:19 06/09/24 08:10 06/09/24 08:09 06/09/24 08:00 06/09/24 04:00 06/09/24 02:00 Intake and Output 06/09/24 06/09/24 06/10/24 14:59 22:59 06:59 Intake Total 1212 2217.112 389 Output Total 250 2050 150 Balance 962 167.112 239 Intake: IV 902 950 20 kvo 50 20 Intake, IV Titration 45.112 Amount propofoL 1,000 mg In 45.112 Empty Bag 1 bag @ 15 MCG/ KG/MIN 10.305 mls/hr IV . Q9H43M [facility] Rx#:[id number] Blood Product 310 1222 369 Platelet Pheresis Pas 369 Psoralen Unit [id number] Rc As-1 Unit 310 [id number] Rc As-1 Unit 310 [id number] Rc As-1 Unit 310 [id number] Rc As-1 Unit 310 [id number] Rc Pheresis As-3 Unit 292 [id number] Output: Drainage 220 Right Back 220 Urine 250 1030 150 Estimated Blood Loss 800 Other: Voiding Method Urinal # Voids 2 ABP, PAP, CO, CI - Last 8 Hours Arterial Blood Pressure 125/73 Arterial Blood Pressure 124/70 Arterial Blood Pressure 107/70 Arterial Blood Pressure 100/62 Arterial Blood Pressure 123/81 GENERAL EXAM: Sedated and fairly unresponsive, 58-year-old white male, intubated to the mechanical ventilator, fairly synchronous HEAD: Normocephalic and atraumatic EYES: Normal reaction of pupils, equal size. NOSE: Clear with pink turbinates. THROAT: No erythema or exudates. NECK: No masses, no JVD. CHEST: No chest wall deformity. LUNGS: Equal air entry with diffuse rhonchi bilaterally. Clear to white e ndotracheal secretions. Peak pressures 23. Synchronous with set rate. CVS: S1 and S2 normal with no audible murmur, irregular rhythm. No extra heart sounds ABDOMEN: No hepatosplenomegaly, active bowel sounds, no guarding or rigidity. SPINE: Postoperative incision appears approximated with postoperative dressing intact. Hemovac compressed, and a total of 220 mL of serosanguineous output has been emptied since surgery. SKIN: No rashes CENTRAL NERVOUS SYSTEM: Sedated and does not follow commands. Withdraws to pain in all 4 extremities. Patellar DTRs 2+ bilaterally. Babinskis neutral. EXTREMITIES: There is no peripheral edema, clubbing, or cyanosis. Peripheral pulses are intact. Results - Laboratory Findings CBC and BMP: 06/08/24 06:17 06/08/24 06:17 ABG ABG pH 7.27 (7.35-7.45) L 06/09/24 19:33 ABG pCO2 61 mmHg (35-45) H 06/09/24 19:33 ABG pO2 80 mmHg (83-108) L 06/09/24 19:33 ABG O2 Saturation 93.8 % (94-97) L 06/09/24 19:33 Abnormal lab findings: Abnormal Labs 06/06/24 06/06/24 06/06/24 11:14 11:14 16:28 RBC 3.62 L Hgb 9.9 L Hct 32.5 L MCHC 30.3 L RDW 16.1 H Plt Count 648 H Lymphocytes # 0.9 L ABG pH ABG pCO2 ABG pO2 ABG HCO3 ABG Total CO2 ABG O2 Saturation ABG Hematocrit ABG Ionized Calcium ABG Glucose Hemoglobin Creatinine 0.47 L Glucose 135 H POC Glucose (mg/dL) 118 H Total Bilirubin 1.6 H Alkaline Phosphatase 153 H Total Protein 5.5 L Albumin 3.2 L Arterial Blood Glucose Crossmatch 06/07/24 06/07/24 06/07/24 06:00 11:53 17:01 RBC Hgb Hct MCHC RDW Plt Count Lymphocytes # ABG pH ABG pCO2 ABG pO2 ABG HCO3 ABG Total CO2 ABG O2 Saturation ABG Hematocrit ABG Ionized Calcium ABG Glucose Hemoglobin Creatinine Glucose POC Glucose (mg/dL) 126 H 140 H 121 H Total Bilirubin Alkaline Phosphatase Total Protein Albumin Arterial Blood Glucose Crossmatch 06/07/24 06/08/24 06/08/24 20:06 06:17 06:17 RBC 3.58 L Hgb 9.6 L Hct 32.5 L MCHC 29.5 L RDW 16.0 H Plt Count 516 H Lymphocytes # ABG pH ABG pCO2 ABG pO2 ABG HCO3 ABG Total CO2 ABG O2 Saturation ABG Hematocrit ABG Ionized Calcium ABG Glucose Hemoglobin Creatinine 0.61 L Glucose 143 H POC Glucose (mg/dL) 166 H Total Bilirubin Alkaline Phosphatase 141 H Total Protein 5.5 L Albumin 3.1 L Arterial Blood Glucose Crossmatch 06/08/24 06/08/24 06/08/24 06:25 11:51 17:02 RBC Hgb Hct MCHC RDW Plt Count Lymphocytes # ABG pH ABG pCO2 ABG pO2 ABG HCO3 ABG Total CO2 ABG O2 Saturation ABG Hematocrit ABG Ionized Calcium ABG Glucose Hemoglobin Creatinine Glucose POC Glucose (mg/dL) 171 H 147 H 263 H Total Bilirubin Alkaline Phosphatase Total Protein Albumin Arterial Blood Glucose Crossmatch 06/08/24 06/08/24 06/09/24 18:47 20:01 11:20 RBC Hgb Hct MCHC RDW Plt Count Lymphocytes # ABG pH ABG pCO2 ABG pO2 ABG HCO3 ABG Total CO2 ABG O2 Saturation ABG Hematocrit ABG Ionized Calcium ABG Glucose Hemoglobin Creatinine Glucose POC Glucose (mg/dL) 141 H 115 H Total Bilirubin Alkaline Phosphatase Total Protein Albumin Arterial Blood Glucose Crossmatch See Detail 06/09/24 06/09/24 06/09/24 15:20 17:19 18:02 RBC Hgb Hct MCHC RDW Plt Count Lymphocytes # ABG pH 7.32 L ABG pCO2 57 H 48 H ABG pO2 115 H 67 L 74 L ABG HCO3 26 H 29 H 28 H ABG Total CO2 25 H 28 H 26 H ABG O2 Saturation 98.0 H 91.0 L ABG Hematocrit 27 L 31 L 30 L ABG Ionized Calcium 4.4 L ABG Glucose 115 H 119 H 115 H Hemoglobin 8.7 L 10.1 L 9.7 L Creatinine Glucose POC Glucose (mg/dL) Total Bilirubin Alkaline Phosphatase Total Protein Albumin Arterial Blood Glucose 115 H 119 H 115 H Crossmatch 06/09/24 06/09/24 19:16 19:33 RBC Hgb Hct MCHC RDW Plt Count Lymphocytes # ABG pH 7.27 L ABG pCO2 61 H ABG pO2 80 L ABG HCO3 28 H ABG Total CO2 30 H ABG O2 Saturation 93.8 L ABG Hematocrit ABG Ionized Calcium ABG Glucose Hemoglobin Creatinine Glucose POC Glucose (mg/dL) 117 H Total Bilirubin Alkaline Phosphatase Total Protein Albumin Arterial Blood Glucose Crossmatch - Diagnostic Findings Chest x-ray: image reviewed Assessment and Plan Assessment: Status post fall L2 vertebral body compression fracture L2-L3 right-sided transverse process fractures L2-L3 left-sided pedicle/transverse process fractures Status postoperative day #1 following a revision T10 to pelvis decompression and fusion with stabilization Routine postoperative mechanical ventilator management, follow-up chest x-ray shows the endotracheal tube in satisfactory position approximately 4.3 cm above the shashank, there is cardiomegaly with pulmonary vascular congestion. Recent L2 to pelvis posterior lateral decompression and fusion on 05/19/2024. During this admission, patient was difficult to extubate, did initially require extubation to BiPAP Acute blood loss anemia, patient has received a total of 5 units of PRBCs perioperatively, 1 pack platelets, and is going to receive 1 unit FFP. Blood pressure support with vasopressors in the form of norepinephrine to increase HAT SIZER perfusion, goal of MAP of 80 mmHg Heart failure with reduced ejection fraction, most recent echocardiogram demon strates a severely reduced ejection fraction of 25 to 30%, as well as, some mild mitral and tricuspid regurgitation. Chronic atrial fibrillation, currently with controlled ventricular response, Xarelto is on hold for surgery History of hypertension History of hyperlipidemia History of diabetes mellitus Obesity, with a BMI of 38.4 kg/m History of obstructive sleep apnea Chronic obstructive pulmonary disease, stable Former tobacco smoker Remote history of prior C2-T2 Decompression and fusion. Plan: Patient's medications, labs, imaging were reviewed Patient is currently recovering in the intensive care unit. Remains intubated to the mechanical ventilator. Continue with current ventilator settings. Titrate FiO2 as tolerated. Repeat ABG this morning. Use propofol for sedation, and titrate for appropriate RASS Orthopedic surgery is requested vasopressors to maintain MAP above 80 mmHg or higher Most recent echocardiogram noted Resume Lasix this morning Repeat labs, including H&H Postoperative analgesics are ordered SCDs are on Xarelto is currently on hold for surgery Protonix for GI prophylaxis We will work on waking the patient up and weaning from mechanical ventilator l ater this morning. Note patient was difficult to extubate after previous spinal surgery. Prognosis is guarded. We will continue to follow, and additional recommendations to follow. I have personally seen and examined the patient, performed the documentation and the assessment and plan as written. Number of minutes spent on the visit:20 Time with Patient: Greater than 30
--- NOTE | 2024-06-10 03:31 | CT ---
EXAM: CT Thoracic Spine Without Intravenous Contrast CLINICAL HISTORY: ITS.REASON CT Reason: post-op revision T9-Pelvis TECHNIQUE: Axial computed tomography images of the thoracic spine without intravenous contrast. CTDI is 29.8 mGy and DLP is 1844 mGy-cm. This CT exam was performed using one or more of the following dose reduction techniques: automated exposure control, adjustment of the mA and/or kV according to patient size, and/or use of iterative reconstruction technique. COMPARISON: 06/06/2024 IMPRESSION: Status post T9 through pelvic fusion. Status post cement placement T8-T10, L1 and L2. Chronic wedging deformity of L2 with retropulsion causing mild spinal canal stenosis Mild bilateral pleural effusion with overlying atelectasis. Worse on the right EXAM: CT Lumbar Spine Without Intravenous Contrast CLINICAL HISTORY: ITS.REASON CT Reason: post-op revision T9-Pelvis TECHNIQUE: Axial computed tomography images of the lumbar spine without intravenous contrast. CTDI is 29.8 mGy and DLP is 1844 mGy-cm. This CT exam was performed using one or more of the following dose reduction techniques: automated exposure control, adjustment of the mA and/or kV according to patient size, and/or use of iterative reconstruction technique. COMPARISON: 06/06/2024
[2024-06-10 05:49] LABS: Basophils % (A) 0 %; Eosinophils % (A) 0 %; HCT 35.7 % (39.0-53.0); HGB 10.8 gm/dL (13.0-17.5); Hypochromasia Marked; Lymphocytes # (A) 0.7 k/uL (1.0-4.8); Lymphocytes % (A) 8 %; MCH 28.1 pg (25.0-35.0); MCHC 30.2 g/dL (31.0-37.0); MCV 92.8 fL (80.0-100.0); Mean Platelet Volume 7.4; Monocytes # (A) 0.7 k/uL (0-1.0); Monocytes % (A) 8 %; Neutrophils # (A) 7.5 k/uL (1.3-7.7); Neutrophils % (A) 82 %; Platelet Count 337 k/uL (150-450); Poikilocytosis Moderate; RBC 3.85 m/uL (4.30-5.90); RDW 15.9 % (11.5-15.5)
[2024-06-10 05:57] LABS: ABG Base Excess 2.9 mmol/L; ABG HCO3 28 mmol/L (21-25); ABG Oxygen Saturation 98.4 % (94-97); ABG PCO2 42 mmHg (35-45); ABG PH 7.43 (7.35-7.45); ABG PO2 99 mmHg (83-108); ABG TCO2 29 mmol/L (19-24); Allen Test Performed? Yes
[2024-06-10 06:26] LABS: African American GFR (CKD) >90 (>60 ml/min/1.73 sqM); Anion Gap 6 mmol/L; Blood Urea Nitrogen 14 mg/dL (9-20); Calcium 8.4 mg/dL (8.4-10.2); Carbon Dioxide 24 mmol/L (22-30); Chloride 106 mmol/L (98-107); Glucose 97 mg/dL (74-99); Non-African American GFR(CKD) >90 (>60 ml/min/1.73 sqM); Potassium 4.1 mmol/L (3.5-5.1); Sodium 136 mmol/L (137-145)
--- NOTE | 2024-06-10 07:33 | XR ---
EXAMINATION TYPE: XR chest 1V portable DATE OF EXAM: 06/10/2024 COMPARISON: 06/09/2024 INDICATION: Tube placement TECHNIQUE: Single frontal view of the chest is obtained. FINDINGS: The heart size is enlarged. The pulmonary vasculature is somewhat prominent. Left perihilar infiltrate is present. Correlate for atelectasis and pneumonia Endotracheal tube tip is above the shashank. Nasogastric tube is present, distal tip cannot be identifi ed due to penetration IMPRESSION: 1. Left perihilar shape. 2. Cardiomegaly. 3. Distal tip of the nasogastric tube not identified.
--- NOTE | 2024-06-10 08:06 | P.OP ---
Date of Procedure: 06/09/24 Preoperative Diagnosis: Current Active Problems Fracture of lumbar spine without cord injury (Acute) Fall (Acute) Lumbar stenosis with neurogenic claudication (Acute) Lumbosacral spondylosis with radiculopathy (Acute) Weakness of both lower extremities (Acute) Facet arthropathy, lumbosacral (Acute) Facet arthropathy, lumbar (Acute) Failed hardware (Acute) Previous back surgery (Acute) Hypercapnic respiratory failure (Acute) Acute postoperative anemia due to expected blood loss (Acute) COPD (chronic obstructive pulmonary disease) (Chronic) Diabetes type 2, uncontrolled (Chronic) [facility] Postoperative Diagnosis: Current Active Problems Fracture of lumbar spine without cord injury (Acute) Fall (Acute) Lumbar stenosis with neurogenic claudication (Acute) Lumbosacral spondylosis with radiculopathy (Acute) Weakness of both lower extremities (Acute) Facet arthropathy, lumbosacral (Acute) Facet arthropathy, lumbar (Acute) Failed hardware (Acute) Previous back surgery (Acute) Hypercapnic respiratory failure (Acute) Acute postoperative anemia due to expected blood loss (Acute) COPD (chronic obstructive pulmonary disease) (Chronic) Diabetes type 2, uncontrolled (Chronic) [facility] Procedure(s) Performed: -OPEN TREATMENT WITH REDUCTION L1-2, AND L3 FRACTURES -REVISION [id number] POSTEROLATERAL INSTRUMENTED FUSION -SEGMENTAL INSTRUMENTATION [id number] -IRRIGATION AND EXCISIONAL DEBRIDEMENT OF LUMBAR SPINE [id number] CM USING THE FOLLOWING --SKIN KNIFE TO REMOVE SKIN AND FRESHEN WOUND EDGES --CURETTE TO REMOVE NECROTIC SOFT TISSUES --RONGURE TO REMOVE BONE, KERRISON TO REMOVE BONE --CAMACHO TO SCRAPE AND REMOVE WOUND EDGE TISSUES -REMOVAL OF HARDWARE L2 AND L3 -ATTACHMENT OF CAUDAL END OF SEGMENT TO BONY PELVIS NOT SACRUM -CEMENT AUGMENTATION T9, T10, L1, L2 AND L3 SCREWS -T8 VERTEBROPLASTY TO PREVENT PJK -USE OF JOSE KRISTEN FOR SCREW PLACEMENT -COMPLEX 4 LAYERED CLOSURE LUMBAR SPINE [id number] CM USE OF IONM Implants: -JOSE EVEREST RODS AND SCREWS -JOSE CEMENT -VESUVIUS DBM BOATS, DBM, AUTOGRAFT, ARTHROCELL Anesthesia: GETA Surgeon: Kenny Jeffrey Early Years Teacher #1: Kayla Foster (WAS PRESENT AND ASSISTED WITH ALL ASPECTS OF THE CASE FROM POSITION TO DRESSING PLACEMENT) Estimated Blood Loss (ml): 800 IV fluids (ml): 3,500 Urine output (ml): 550 Pathology: other (x2 superficial lumbar spine) Condition: stable Disposition: ICU Indications for Procedure: Kvng Molina is a 58 yo male presenting for evaluation of back pain and debility with LE weakness after several falls at home and hospital after his L2-Pelvis decompression and fusion. Three weeks ago he had this done and was recovered and eventually sent home on POD5. He was at home and followed up in office. Upon follow up it was found that his top screws at L2 had failed and that he had a fracture at L2 and L1. He was boarded for surgery. He went home and had another fall and presented to the ED with increased pain and debility. He was found to have now multiple fractures with loose screws at L2, L3, fracture at L2, L3 L1-2 region with instability. He was admitted and worked up for this and cleared for surgery. It was my pleasure to have seen and examined Kvng Molina. In our visit today we have had a chance to go over subjective complaints, physical examination findings and treatments including the natural course history without intervention and various interventional options. The patients imaging demonstrates multiple new fractures L2, L3, L1-2 region with kypohosis, proximal junctional failure, hardware failure. There is instability at L1-2 region. There is ankylosis at T9-10 region. No other fracturesnoted. The lower hardware is intact. On physical exam, Kvng Molina demonstrates severe low back pain, increased pain, debility and inability to perform ADLs as well as increased leg weakness and pain along with dehiscence of the lower 2 cm of his wound due to falls and splitting the wound open. Some drainage from the area as well. 4-/5 in LE b/l with decreased ambulation tolerance. 2/4 DTR LE. 3/4 UE due to previous SCI and myelopathy. NO changes here. SILT L2-S2 at this time. No BB issues. I have explained to the patient that as their condition progresses it will cause further neurological deficits and eventual paralysis. Based on the patients imaging, physical exam, and the rapid progression and disabling nature of their symptoms, at this time I recommend surgery in the form or a: Open treatment L1-2 fracture with revision X72-Ysgvvw decompression and fusion with stabilization. I discussed the risk and benefits of this procedure at length with Kvng Molina. The patient agreed to considered pursuing the procedure abovementioned. Prior to surgery, she should follow up with her PCP (Cardio, ID, IM etc) for clearance. Questions were invited and answered, and the patient wishes to proceed as outlined below. Currently, I am recommendin. Open treatment L1-2 fracture with revision U21-Bfqkuw decompression and fusion with stabilizationOpen treatment L1-2 fracture with revision T95-[place] decompression and fusion with stabilization Description of Procedure: Revision I97-Odvwyw Decompression and fusion KRISTEN The patient was seen and examined in the preoperative area. All preoperative protocols were followed. Informed consent was obtained, risks and benefits of the procedure were discussed at length. Risks including bleeding infection damage to the surrounding tissue and risk of reoperation were discussed with the patient. Risk of anesthesia up to and including was discussed with the patient. These are outlined in the risk review. They were willing to accept these risks and all the risks of surgery. The patient was given a weight-based dose of antibiotics in the form of 3 g Ancef. The patient was seen and evaluated by the anesthesia team who deemed them fit for surgery. The site was marked, the patient was willing to proceed with the procedure. The patient was transferred to the operative suite by the Department of anesthesia. They were then drifted off to sleep by the department anesthesia and GETA was performed. The patient tolerated this well. Zavala catheter was placed by nursing staff, a-traumatically. Once confirmation of lines and ventilation the patient was transferred to a prone Trios spine table very carefully. The head was secured and stable. Xray confirmed alignment. All bony prominences including wrists, elbows, axilla, chest, hips, and thighs, and feet were padded very well. Special attention was paid to the genitalia, and these were padded accordingly. SCDs were placed on bilateral lower extremities and were connected. Arms were well padded and placed at 90/90 up and out and well padded. Safety strap and tape placed on the patient. Once in position, again we confirmed good ventilation capabilities and that lines were running appropriately. The patients lumbosacral pelvic was then exposed. Hair was removed for incision. 1010s were placed outlining the incision site. Standard alcohol was used to clean the incision site and allowed to dry. C-arm was used to bio-hodan the patient and confirm level for incision which was marked with a skin marker. Operative briefing was performed with all teams and everyone in agreement to proceed. The patient was then prepped and draped in a normal sterile fashion. Timeout was then performed, and all parties agreed with the procedure to be performed. Midline skin incision was then made over the previously bookmarked area and dissection taken down to the lumbosacral fascia which was identified and cleaned with a camacho. Once midline was identified, fasciotomy was made over the SP of T8-pelvis. Subperiosteal dissection was then taken down over the lamina and facet joints and TPs were exposed and trough made posterolateral. Previous soren dware was identified from L2-pelvis. There was in the superficial soft tissue at the bottom of the incision some drainage noted with seroma/fluid collection. This was cultured. It did not go through the fascia which was intact as we came down with dissection. Previous sutures were removed entirely. We then exposed out over the hardware and removed the set screws and rods from L2-P. L1-2 region was highly unstable due to fracture and The screws at L2 bilaterally were failed and came out without class a regional drivers due to pedicle fractures b/l. The screws at L3 were both b/l failed and loose as well due to fractures. The left L4 screw was loose and was removed. The Screws from L5-P were tested and were strong. THe wound was then irrigated with irricept, betadine solution and NSS and debrided suing curettes and rongure to remove any necrotic or poor looking tissues from the area. The dura was inspected and was stable without injury and was debrided of any debris or graft. We then placed a SP tracker on L1 and obtained a 3D Zhiem spin for navigaiton of screws from T9-L1. Once this was obtained and registered it was confirmed to be accurate, we then proceeded to place new screws at T9-L1 bilaterally using a navigated fina, navigated awl tap and then navigated screw class a regional drivers. Once we got to the T11 region the navigation crashed and we switched to freehand technique with lateral imaging. [place], pedicle finder, balltip feeler were used to ensure within the pedicle and then screws were placed under lateral imaging. AP imaging after all screws were placed to L1 confirmed good screw placement. We then attempted to salvage L2 pedicles and place screws here, howevere the right side pedicle had no purchase left any longer and was completely blown out. The left side we were able to get purchase in the pedicle and the body safely by redirecting the screw caudally. This screw was placed. We then placed screws bilateral at L3 and upsized them for good bite. We did the same at the L4 screw that was taken out. These were then visualized in AP and confirmed to be in good position. Screws at T9, T10, L1, L2 and L3 were then all cemented into position under lateral fluroscopy t hrough fenestrations. Good cement mantle was obtained and there was no issues with cementation and pt remained stable through this process. We then, to prevent furtehr PJK and breakdown due to the soft bone the patient has, performed vertebroplasty at T8 bilaterally. Jamshidi was placed through the pedicle into the body and cement placed under lateral image. Good fill was obtained and there was no extravasation. AP confirmed all cementation and fill. THe wound was irrigated with Irricept and NSS. We then proceeded to Ray placement and reduction. Rods were selected and cut to length and bent appropriately for reduction and lordosis. These were then secured into b/l pelvic screws and then sequentially reduced into lumbar and thoracic screws with little to no reduction on the top 4 screws to allow for solid achor and minimal stress. Set screws were then all placed. All set screws were then final tightened. Cross links were selected and placed as well. AP and Lat confirmed good reduction of L1-2 fracture and alignment as well as temple of lordosis and thoracolumbar junction alignment. The wound was then debrided and irrigated with 3L Ancef solution, 3L gentamycin solution, 2L irricept solution, 2L betadine solution followed by 6L NSS all while loose and necrotic tissues being debrided with curette, rongure and camacho. Once this was accomplished a deep drain was placed and secured to the skin. Stimulan beads were placed deep in the wound along with 2g of Vancomycin powder. The PL gutters were decorticated with HS fina and graft placed in the PL gutters from T9-P once again for PL fusion. We then proceeded to complex layered closure. 0 PDS was used for a muscle layer closure followed by #PDS in the deep fascia for a watertight closure. The deep and intermediate subq tissues were closed with 0 Vicryl. A 10 blade was then used to freshen the skin edges of the previous incision to allow for bleeding edges and good healing potential. The superficial subq was then closed with 2-0 Vicryl. The skin edges were then closed with a 2-0 nylon in a running Trauma stitch fashion. The edges everted and approximated well. The wound was then cleaned and dressed steril with adaptic, 4x4, abd and Ioband. The drain was attached and had good suction with return. The patient was then transferred off the [facility] spine table to their hospital bed a-traumatically, however on transfer with anesthesia, the ET tube was pulled back and so they needed to reinsert this which they did without issues and without any changes with the patient who remained stable. Drains continued to hold suction. The patient was then transferred to the ICU in stable condition, intubated, having tolerated the procedure with no complications.
--- NOTE | 2024-06-10 09:18 | P.PN ---
Subjective Progress Note Date: 06/10/24 Principal diagnosis: Hardware failure lumbar spine L2-L3 fracture History of recent [id number] decompression and fusion and open bilateral SI joint fusion Patient seen and examined this morning. Patient was transferred from the OR yesterday evening to the ICU. He is currently on mechanical ventilation, FiO2 is currently set at 60 and PEEP at 5, O2 saturation is at 98%. VSS. Surgical incision to the thoracolumbar spine, Hemovac is present and patent with 740 mL output overnight. Hemovac is to be at half compression at this time, it has been labeled on Hemovac. No acute concerns at this time. Objective - Vital Signs Vital signs: Vital Signs Temp 99.1 F 06/10/24 04:00 Pulse 102 H 06/10/24 07:56 Resp 21 06/10/24 07:00 BP 124/79 06/10/24 03:30 Pulse Ox 98 06/10/24 07:00 FiO2 60 06/10/24 07:30 Intake & Output 06/09/24 06/10/24 06/10/24 18:59 06:59 18:59 Intake Total 2714 1584.000 110 Output Total 1650 1985 75 Balance 1064 -401.000 35 Weight 115.6 kg Intake: IV 1802 130 10 kvo 130 10 Intake, IV Titration 200.000 100 Amount propofoL 1,000 mg In 200.000 100 Empty Bag 1 bag @ 15 MCG/ KG/MIN 10.305 mls/hr IV . [id number] [facility] Rx#:[id number] Blood Product 912 1254 Ffp 24 Cpd Unit 265 [id number] Platelet Pheresis Pas 369 Psoralen Unit [id number] Rc As-1 Unit 310 [id number] Rc As-1 Unit 310 [id number] Rc As-1 Unit 310 [id number] Rc As-1 Unit 0 310 [id number] Rc Pheresis As-3 Unit 292 [id number] Output: Drainage 960 Right Back 960 Urine 850 1025 75 Estimated Blood Loss 800 Other: Voiding Method Urinal Indwelling Catheter # Voids 2 # Bowel Movements 0 ABP, PAP, CO, CI - Last Documented Arterial Blood Pressure 130/77 - Exam Physical Examination General: The patient is on mechanical ventilation, in no acute distress Skin: Skin is warm and dry with no obvious rashes or lesions. Surgical incision to the lumbar spine, Hemovac is present and patent with 740 mL output overnight. Hemovac should be placed at half compression, this is labeled on Hemovac drain. - Labs CBC & Chem 7: 06/10/24 05:26 06/10/24 05:26 Labs: Abnormal Lab Results - Last 24 Hours (Table) 06/08/24 06/09/24 06/09/24 Range/Units 18:47 11:20 15:20 WBC (3.8-10.6) k/uL RBC (4.30-5.90) m/uL Hgb (13.0-17.5) gm/dL Hct (39.0-53.0) % MCHC (31.0-37.0) g/dL RDW (11.5-15.5) % Lymphocytes # (1.0-4.8) k/uL ABG pH (7.35-7.45) ABG pCO2 (35-45) mmHg ABG pO2 115 H (83-108) mmHg ABG HCO3 26 H (21-25) mmol/L ABG Total CO2 25 H (19-24) mmol/L ABG O2 Saturation 98.0 H (94-97) % ABG Hematocrit 27 L (34.0-46.0) % ABG Ionized Calcium 4.4 L (4.5-5.3) mg/dL ABG Glucose 115 H (75-99) mg/dL Hemoglobin 8.7 L (13.0-17.5) gm/dL Sodium (137-145) mmol/L Creatinine (0.66-1.25) mg/dL Glucose (74-99) mg/dL POC Glucose (mg/dL) 115 H (70-110) mg/dL Arterial Blood Glucose 115 H (75-99) mg/dL Crossmatch See Detail 06/09/24 06/09/24 06/09/24 Range/Units 17:19 18:02 19:16 WBC (3.8-10.6) k/uL RBC (4.30-5.90) m/uL Hgb (13.0-17.5) gm/dL Hct (39.0-53.0) % MCHC (31.0-37.0) g/dL RDW (11.5-15.5) % Lymphocytes # (1.0-4.8) k/uL ABG pH 7.32 L (7.35-7.45) ABG pCO2 57 H 48 H (35-45) mmHg ABG pO2 67 L 74 L (83-108) mmHg ABG HCO3 29 H 28 H (21-25) mmol/L ABG Total CO2 28 H 26 H (19-24) mmol/L ABG O2 Saturation 91.0 L (94-97) % ABG Hematocrit 31 L 30 L (34.0-46.0) % ABG Ionized Calcium (4.5-5.3) mg/dL ABG Glucose 119 H 115 H (75-99) mg/dL Hemoglobin 10.1 L 9.7 L (13.0-17.5) gm/dL Sodium (137-145) mmol/L Creatinine (0.66-1.25) mg/dL Glucose (74-99) mg/dL POC Glucose (mg/dL) 117 H (70-110) mg/dL Arterial Blood Glucose 119 H 115 H (75-99) mg/dL Crossmatch 06/09/24 06/10/24 06/10/24 Range/Units 19:33 00:58 00:58 WBC 12.0 H (3.8-10.6) k/uL RBC 3.95 L (4.30-5.90) m/uL Hgb 11.4 L (13.0-17.5) gm/dL Hct 36.8 L (39.0-53.0) % MCHC 30.9 L (31.0-37.0) g/dL RDW 15.7 H (11.5-15.5) % Lymphocytes # (1.0-4.8) k/uL ABG pH 7.27 L (7.35-7.45) ABG pCO2 61 H (35-45) mmHg ABG pO2 80 L (83-108) mmHg ABG HCO3 28 H (21-25) mmol/L ABG Total CO2 30 H (19-24) mmol/L ABG O2 Saturation 93.8 L (94-97) % ABG Hematocrit (34.0-46.0) % ABG Ionized Calcium (4.5-5.3) mg/dL ABG Glucose (75-99) mg/dL Hemoglobin (13.0-17.5) gm/dL Sodium (137-145) mmol/L Creatinine 0.50 L (0.66-1.25) mg/dL Glucose 112 H (74-99) mg/dL POC Glucose (mg/dL) (70-110) mg/dL Arterial Blood Glucose (75-99) mg/dL Crossmatch 06/10/24 06/10/24 06/10/24 Range/Units 05:26 05:26 05:53 WBC (3.8-10.6) k/uL RBC 3.85 L (4.30-5.90) m/uL Hgb 10.8 L (13.0-17.5) gm/dL Hct 35.7 L (39.0-53.0) % MCHC 30.2 L (31.0-37.0) g/dL RDW 15.9 H (11.5-15.5) % Lymphocytes # 0.7 L (1.0-4.8) k/uL ABG pH (7.35-7.45) ABG pCO2 (35-45) mmHg ABG pO2 (83-108) mmHg ABG HCO3 28 H (21-25) mmol/L ABG Total CO2 29 H (19-24) mmol/L ABG O2 Saturation 98.4 H (94-97) % ABG Hematocrit (34.0-46.0) % ABG Ionized Calcium (4.5-5.3) mg/dL ABG Glucose (75-99) mg/dL Hemoglobin (13.0-17.5) gm/dL Sodium 136 L (137-145) mmol/L Creatinine 0.44 L (0.66-1.25) mg/dL Glucose (74-99) mg/dL POC Glucose (mg/dL) (70-110) mg/dL Arterial Blood Glucose (75-99) mg/dL Crossmatch Assessment and Plan Assessment: Postop day 1: Revision [id number] decompression and fusion with T8 kyphoplasty History of recent T1cfemhz posterior lateral decompression and fusion, bilateral open SI joint fusions Hardware failure L2-L3 L2 vertebral body compression fracture L2-L3 right-sided transverse process fractures L2-L3 left-sided pedicle and transverse process fractures Status post recent fall Other medical comorbidities Plan: -Appreciate independent consultant and team management. -Activity: Bedrest at this time, encourage increase in activity when patient is exubated and medically stable. -Pain control: Adequate at this time -Meds: reviewed -GI ppx: senna -DVT PPX: TEDs, SCDs -Hygiene: Maintain dressing clean and dry. Meticulous cleaning after BMs away from the incision site -Drain Management: Continue to document output every shift. Maintain hemovac at half compression -Encourage IS 10x/hr *I reviewed and discussed this case with my attending Dr. Jeffrey, whom has reviewed this chart and films and is in agreement with assessment and plan of care as outlined above. I have personally seen and examined the patient, performed the documentation and the assessment and plan as written. Number of minutes spent on the visit: 20m.
--- NOTE | 2024-06-10 09:45 | P.PN ---
Subjective Progress Note Date: 06/10/24 The patient is a 58-year-old male with multiple comorbid conditions and follows in the office with Dr. Menard. Cardiology was consulted for preoperative clearance as the patient sustained a mechanical fall and suffered a lumbar spine fracture. Yesterday the patient underwent open treatment of L1-L2 fracture with revision of T10 through pelvis decompression and fusion with stabilization. The patient did have intraoperative blood loss at approximately 800 mL. He remains in the ICU on ventilator, with minimal vasopressor support. Heart rates seem reasonably well-controlled. GENERAL: Ill-appearing, well-nourished and in no acute distress. NECK: Supple without JVD or thyromegaly. LUNGS: Breath sounds diminished to auscultation bilaterally. Respiration equal and unlabored. No wheezes, rales or rhonchi. HEART: Irregular rate and rhythm without murmurs, rubs or gallops. S1 and S2 heard. EXTREMITIES: Normal range of motion, no edema. No clubbing or cyanosis. Peripheral pulses intact and strong. TELEMETRY: Rate controlled atrial fibrillation with heart rates in the 90s LABS: WBC 9.0, hemoglobin 10.8, hematocrit 35.7, platelet 337, sodium 136, potassium 4.1, BUN 14, creatinine 0.44 IMPRESSION: Status post mechanical fall Recent revision of L2 to pelvis posterior lateral decompression and fusion with bilateral open SI joint fusions on 05/19/2024 Hardware failure of L2-L3, status post L1-L2 revision and T10 through pelvis decompression and fusion Persistent atrial fibrillation Hypertension Hyperlipidemia Diabetes Cardiomyopathy, unspecified type, EF 25 to 30% PLAN: Resume anticoagulation when cleared by surgery as patient had blood loss intraoperatively Continue oral metoprolol; switch to tartrate if patient is not being extubated today Further recommendations to be based upon clinical course I am dictating on behalf of Dr Michele Silveira's history/physical and assessment/plan. Objective - Vital Signs Vital signs: Vital Signs Temp 99.1 F 06/10/24 08:00 Pulse 104 H 06/10/24 09:00 Resp 21 06/10/24 09:00 BP 118/93 06/10/24 07:30 Pulse Ox 96 06/10/24 09:00 FiO2 80 06/10/24 08:00 Intake & Output 06/09/24 06/10/24 06/10/24 18:59 06:59 18:59 Intake Total 2714 1584.000 230 Output Total 1650 1985 250 Balance 1064 -401.000 -20 Weight 115.6 kg Intake: IV 1802 130 130 ceFAZolin 2 gm In Sodium 100 Chloride 0.9% 50 ml @ 100 mls/hr IVPB Q8HR [facility] Rx# :[id number] kvo 130 30 Intake, IV Titration 200.000 100 Amount propofoL 1,000 mg In 200.000 100 Empty Bag 1 bag @ 15 MCG/ KG/MIN 10.305 mls/hr IV . Q9H43M [facility] Rx#:[id number] Blood Product 912 1254 Ffp 24 Cpd Unit 265 [id number] Platelet Pheresis Pas 369 Psoralen Unit [id number] Rc As-1 Unit 310 [id number] Rc As-1 Unit 310 [id number] Rc As-1 Unit 310 [id number] Rc As-1 Unit 0 310 [id number] Rc Pheresis As-3 Unit 292 [id number] Output: Drainage 960 Right Back 960 Urine 850 1025 250 Estimated Blood Loss 800 Other: Voiding Method Urinal Indwelling Catheter Indwelling Catheter # Voids 2 # Bowel Movements 0 ABP, PAP, CO, CI - Last Documented Arterial Blood Pressure 136/70 - Labs CBC & Chem 7: 06/10/24 05:26 06/10/24 05:26 Labs: Abnormal Lab Results - Last 24 Hours (Table) 06/08/24 06/09/24 06/09/24 Range/Units 18:47 11:20 15:20 WBC (3.8-10.6) k/uL RBC (4.30-5.90) m/uL Hgb (13.0-17.5) gm/dL Hct (39.0-53.0) % MCHC (31.0-37.0) g/dL RDW (11.5-15.5) % Lymphocytes # (1.0-4.8) k/uL ABG pH (7.35-7.45) ABG pCO2 (35-45) mmHg ABG pO2 115 H (83-108) mmHg ABG HCO3 26 H (21-25) mmol/L ABG Total CO2 25 H (19-24) mmol/L ABG O2 Saturation 98.0 H (94-97) % ABG Hematocrit 27 L (34.0-46.0) % ABG Ionized Calcium 4.4 L (4.5-5.3) mg/dL ABG Glucose 115 H (75-99) mg/dL Hemoglobin 8.7 L (13.0-17.5) gm/dL Sodium (137-145) mmol/L Creatinine (0.66-1.25) mg/dL Glucose (74-99) mg/dL POC Glucose (mg/dL) 115 H (70-110) mg/dL Arterial Blood Glucose 115 H (75-99) mg/dL Crossmatch See Detail 06/09/24 06/09/24 06/09/24 Range/Units 17:19 18:02 19:16 WBC (3.8-10.6) k/uL RBC (4.30-5.90) m/uL Hgb (13.0-17.5) gm/dL Hct (39.0-53.0) % MCHC (31.0-37.0) g/dL RDW (11.5-15.5) % Lymphocytes # (1.0-4.8) k/uL ABG pH 7.32 L (7.35-7.45) ABG pCO2 57 H 48 H (35-45) mmHg ABG pO2 67 L 74 L (83-108) mmHg ABG HCO3 29 H 28 H (21-25) mmol/L ABG Total CO2 28 H 26 H (19-24) mmol/L ABG O2 Saturation 91.0 L (94-97) % ABG Hematocrit 31 L 30 L (34.0-46.0) % ABG Ionized Calcium (4.5-5.3) mg/dL ABG Glucose 119 H 115 H (75-99) mg/dL Hemoglobin 10.1 L 9.7 L (13.0-17.5) gm/dL Sodium (137-145) mmol/L Creatinine (0.66-1.25) mg/dL Glucose (74-99) mg/dL POC Glucose (mg/dL) 117 H (70-110) mg/dL Arterial Blood Glucose 119 H 115 H (75-99) mg/dL Crossmatch 06/09/24 06/10/24 06/10/24 Range/Units 19:33 00:58 00:58 WBC 12.0 H (3.8-10.6) k/uL RBC 3.95 L (4.30-5.90) m/uL Hgb 11.4 L (13.0-17.5) gm/dL Hct 36.8 L (39.0-53.0) % MCHC 30.9 L (31.0-37.0) g/dL RDW 15.7 H (11.5-15.5) % Lymphocytes # (1.0-4.8) k/uL ABG pH 7.27 L (7.35-7.45) ABG pCO2 61 H (35-45) mmHg ABG pO2 80 L (83-108) mmHg ABG HCO3 28 H (21-25) mmol/L ABG Total CO2 30 H (19-24) mmol/L ABG O2 Saturation 93.8 L (94-97) % ABG Hematocrit (34.0-46.0) % ABG Ionized Calcium (4.5-5.3) mg/dL ABG Glucose (75-99) mg/dL Hemoglobin (13.0-17.5) gm/dL Sodium (137-145) mmol/L Creatinine 0.50 L (0.66-1.25) mg/dL Glucose 112 H (74-99) mg/dL POC Glucose (mg/dL) (70-110) mg/dL Arterial Blood Glucose (75-99) mg/dL Crossmatch 06/10/24 06/10/24 06/10/24 Range/Units 05:26 05:26 05:53 WBC (3.8-10.6) k/uL RBC 3.85 L (4.30-5.90) m/uL Hgb 10.8 L (13.0-17.5) gm/dL Hct 35.7 L (39.0-53.0) % MCHC 30.2 L (31.0-37.0) g/dL RDW 15.9 H (11.5-15.5) % Lymphocytes # 0.7 L (1.0-4.8) k/uL ABG pH (7.35-7.45) ABG pCO2 (35-45) mmHg ABG pO2 (83-108) mmHg ABG HCO3 28 H (21-25) mmol/L ABG Total CO2 29 H (19-24) mmol/L ABG O2 Saturation 98.4 H (94-97) % ABG Hematocrit (34.0-46.0) % ABG Ionized Calcium (4.5-5.3) mg/dL ABG Glucose (75-99) mg/dL Hemoglobin (13.0-17.5) gm/dL Sodium 136 L (137-145) mmol/L Creatinine 0.44 L (0.66-1.25) mg/dL Glucose (74-99) mg/dL POC Glucose (mg/dL) (70-110) mg/dL Arterial Blood Glucose (75-99) mg/dL Crossmatch
[2024-06-10 11:59] LABS: Glucose,Whole Blood 104 mg/dL (70-110)
--- NOTE | 2024-06-10 12:13 | CT ---
EXAMINATION TYPE: CT brain wo con CT DLP: 1172.4 mGycm, Automated exposure control for dose reduction was used. DATE OF EXAM: 06/10/2024 11:53 AM COMPARISON: CT brain C-spine 11/18/2023 CLINICAL INDICATION:Male, 58 years old with history of right side weakness, right side weakness TECHNIQUE: Brain: Multiple axial CT images of the brain were obtained without IV contrast. . Coronal and sagitta l reformats reviewed. FINDINGS: Brain: Extra-axial spaces: No abnormal extra-axial fluid collections. Ventricular system: Within normal limits Cerebral parenchyma: No acute intraparenchymal hemorrhage. There is hypoattenuation and loss of petersen- white differentiation within the left frontoparietal junction region. The remaining petersen-white juncti on is well differentiated. Scattered hypoattenuating areas are seen within the periventricular white matter. Cerebellum: Unremarkable. Mass effect: No evidence of midline shift. Intracranial vasculature: unremarkable Soft tissues: Normal. Calvarium/osseous structures: No depressed skull fracture. Remote right lamina papyracea fracture. Paranasal sinuses and mastoid air cells: Mild scattered paranasal sinus disease. Visualized orbits: Orbital contents are intact. IMPRESSION: Findings of acute/subacute CVA involving the left frontoparietal region. Findings communicated via [employer] at 12:10 PM on 06/10/2024.
--- NOTE | 2024-06-10 12:18 | P.PN ---
Progress Note - Text Progress Note Date: 06/10/24 Contacted about pt. during weaning found to have RUE and RLE weakness. Pt sent for CT scan due to CVA like sx. Pt is vented sedated after his revision T9- Pelvis for multiple spine fractrues after L2-P decompression fusion with multiple falls. Contacted Neuro. for urgent eval. Pt still vented and sedated at this time. Down in CT. Will reassess.
--- NOTE | 2024-06-10 14:00 | P.CNNES ---
History of Present Illness Consult date: 06/10/24 Requesting physician: Kenny Jeffrey Reason for Consult: cva History of Present Illness: This is a 58-year-old gentleman with history of atrial fibrillation status post cardioversion on Xarelto, Beatties mellitus, heart failure, cervical myelopathy, [id number] decompression and fusion of bilateral open SI joint on 05/19/2024, with recurrent fall and a recent fall with back pain. She is consulted for stroke. History is obtained from orthopedic surgeon and the nurse. Seems that the patient has L2-L3 fracture and has hardware failure of the thoracic spine to pelvis. 3 the patient had L1-L2 and L3 revision T10 to pelvis posterior lateral instrumented fusion with hardware removal. Seems to the patient Xarelto was held for 48 hours and the last dose was on 06/08/2024 per the nurse for his surgery. Today when the patient was weaned off sedation was noted that the patient had right-sided weakness in the morning. Last normal state was around 3 PM per the orthopedic surgery team and he stated that yesterday he was moving the right side but it seems today he is not moving the right side at all and had spontaneous movement of the left side and would open the eyes to voice. He had a CT of the head which shows acute to subacute stroke involving the left frontal parietal region. As stated above Xarelto is held because of recent surgery. Patient is on aspirin. Patient is intubated on ventilator and is on IV propofol Some of the other workup during this hospital visit consisted of: Most recent blood pressure is 130/78 heart rate 101 respiratory rate is 24. Globin currently 10.8 platelet is 337 I reviewed the lab workup. The head I reviewed it and I agree of recent stroke over the left side but feel more subacute. Review of Systems Limited but the positive and negative as per HPI. Past Medical History Past Medical History: Atrial Fibrillation, Heart Failure, COPD, Diabetes Mellitus, GERD/Reflux, Hypertension, Musculoskeletal Disorder, Sleep Apnea/CPAP/BIPAP Additional Past Medical History / Comment(s): DDD, spinal spondylosis, right arm numbness down to fingers, bilateral knees occasionally buckle/wears right knee brace at times, chronic pain, no CPAP use. History of Any Multi-Drug Resistant Organisms: MRSA Date of last positivie culture/infection: 1999 MDRO Source:: face Past Surgical History: Appendectomy, Cholecystectomy, Orthopedic Surgery Additional Past Surgical History / Comment(s): Cervical fusion/cage with bone from hip, back surgery d/t congenital defect, multiple sutures to face due to chain saw accident, facial MRSA with surgery to remove, colonoscopy, L2-Pelvis decompression and fusion, bilateral SI joint fusions. Past Anesthesia/Blood Transfusion Reactions: Previous Problems w/ Anesthesia Additional Past Anesthesia/Blood Transfusion Reaction / Comment(s): "Combative when coming out anesthesia." Pt has never had a blood transfusion. Past Psychological History: Anxiety, Depression, PTSD Additional Psychological History / Comment(s): Pt resides with exspouse. Smoking Status: Former smoker Past Alcohol Use History: None Reported Additional Past Alcohol Use History / Comment(s): Started smoking in 1979 and was a ppd smoker, quit 01/2023. Past Drug Use History: Marijuana Additional Drug Use History / Comment(s): USES MARIJUANA DAILY BOTH SMOKING AND EDIBLES-INSTRUCTED TO REFRAIN FROM USE FOR AT LEAST 24 HOURS PRIOR TO PROCEDURE. - Past Family History Mother Family Medical History: Deep Vein Thrombosis (DVT) Sister(s) Family Medical History: Cancer Additional Family Medical History / Comment(s): Colon cancer X2 sisters. Father Family Medical History: Myocardial Infarction ([place]) Additional Family Medical History / Comment(s): at 43 yrs of [place]. Medications and Allergies Home Medications Medication Instructions Recorded Confirmed Type PARoxetine HCL [Paxil] 40 mg PO HS 12/21/19 06/06/24 History buPROPion HCL [buPROPion HCL SR] 150 mg PO BID 12/21/19 06/06/24 History metFORMIN HCL [Glucophage] 500 mg PO BID 12/21/19 06/06/24 History Gabapentin 800 mg PO QID 11/06/22 06/06/24 History Atorvastatin [Lipitor] 40 mg PO HS 03/01/23 06/06/24 History Budesonide [Pulmicort] 1 mg INHALATION RT-BID 11/18/23 06/06/24 History HYDROcodone/APAP 10-325MG [Centuria 1 tab PO QID PRN 11/18/23 06/06/24 History 10-325] Ipratropium Nebulized [Atrovent 0.5 mg INHALATION RT-QID 11/18/23 06/06/24 History Nebulized 0.2 MG/ML] Montelukast [Singulair] 10 mg PO HS 11/18/23 06/06/24 History Omeprazole [PriLOSEC] 40 mg PO DAILY 11/18/23 06/06/24 History Dapagliflozin Propanediol [Farxiga] 10 mg PO DAILY #30 tab 11/20/23 06/06/24 Rx Furosemide [Lasix] 40 mg PO DAILY #30 tab 11/20/23 06/06/24 Rx Doxycycline [Vibramycin] 100 mg PO BID 05/18/24 06/06/24 History Cyclobenzaprine [Flexeril] 10 mg PO BID PRN #30 tab 05/26/24 06/06/24 Rx Rivaroxaban [Xarelto] 10 mg PO W/SUPPER 06/06/24 06/06/24 History cefaDROXiL [Duricef] 500 mg PO Q12HR 06/06/24 06/06/24 History oxyCODONE-APAP 10-325MG [Percocet 1 tab PO Q6HR PRN 06/06/24 06/06/24 History 10-325 mg] Allergies Allergy/AdvReac Type Severity Reaction Status Date / Time No Known Allergies Allergy Verified 06/09/24 11:13 Physical Examination - Vital Signs Vital Signs: Vital Signs Temp Pulse Resp BP Pulse Ox FiO2 06/10/24 12:12 95 06/10/24 12:04 94 60 06/10/24 10:00 101 H 24 97 06/10/24 09:45 122 H 22 97 06/10/24 09:30 90 23 97 06/10/24 09:15 99 21 97 06/10/24 09:00 104 H 21 96 06/10/24 08:45 110 H 23 96 06/10/24 08:30 99 22 96 06/10/24 08:15 93 21 98 06/10/24 08:00 99.1 F 113 H 26 H 97 80 06/10/24 07:56 102 H 06/10/24 07:50 100 06/10/24 07:48 99 06/10/24 07:45 103 H 20 98 06/10/24 07:35 108 H 06/10/24 07:30 94 20 118/93 99 60 06/10/24 07:15 104 H 20 118/93 99 06/10/24 07:00 96 21 98 07/17/24 06:00 98 21 98 06/10/24 05:00 78 20 97 06/10/24 04:00 99.1 F 94 20 97 80 06/10/24 03:30 98.9 F 99 21 124/79 98 60 06/10/24 03:00 84 20 96 06/10/24 02:00 105 H 20 99 60 06/10/24 01:59 99.1 F 95 20 114/76 97 06/10/24 01:39 99.2 F 90 20 121/75 97 06/10/24 01:00 90 23 98 06/10/24 00:00 98.9 F 89 21 98 80 06/09/24 23:56 98.9 F 102 H 23 127/72 98 06/09/24 23:47 99.1 F 98 21 132/78 98 06/09/24 23:40 80 06/09/24 23:27 99.0 F 89 21 133/86 99 06/09/24 23:00 91 22 100 06/09/24 22:35 99.0 F 98 23 120/74 06/09/24 22:00 112 H 23 96 06/09/24 21:00 112 H 20 95 06/09/24 20:35 98.1 F 105 H 23 108/68 06/09/24 20:15 98.4 F 105 H 21 115/69 95 06/09/24 20:00 97.1 F L 113 H 20 87 L 100 06/09/24 19:58 98.1 F 115 H 14 120/77 96 06/09/24 19:55 122 H 06/09/24 19:41 106 H 06/09/24 19:40 109 H 06/09/24 19:30 115 H 06/09/24 19:20 100 06/09/24 18:43 100 Intake and Output 06/09/24 06/10/24 06/10/24 22:59 06:59 14:59 Intake Total 2217.112 868.888 501.936 Output Total 2050 1335 450 Balance 167.112 -466.112 51.936 Intake: IV 950 80 140 ceFAZolin 2 gm In Sodium 100 Chloride 0.9% 50 ml @ 100 mls/hr IVPB Q8HR [facility] Rx# :[id number] kvo 50 80 40 Intake, IV Titration 45.112 154.888 361.936 Amount Norepinephrine 4 mg In 162.206 Sodium Chloride 0.9% 250 ml @ 0.03 MCG/KG/MIN 13. 087 mls/hr IV .[id number] [facility] Rx#:[id number] propofoL 1,000 mg In 45.112 154.888 199.730 Empty Bag 1 bag @ 15 MCG/ KG/MIN 10.305 mls/hr IV . Q9H43M [facility] Rx#:[id number] Blood Product 1222 634 Ffp 24 Cpd Unit 265 [id number] Platelet Pheresis Pas 369 Psoralen Unit [id number] Rc As-1 Unit 310 [id number] Rc As-1 Unit 310 [id number] Rc As-1 Unit 310 [id number] Rc Pheresis As-3 Unit 292 [id number] Output: Drainage 220 740 Right Back 220 740 Urine 1030 595 450 Estimated Blood Loss 800 Other: Voiding Method Indwelling Catheter Indwelling Catheter Indwelling Catheter # Bowel Movements 0 Weight 115.6 kg ABP, PAP, CO, CI - Last 8 Hours Arterial Blood Pressure 130/78 Arterial Blood Pressure 113/69 Arterial Blood Pressure 136/74 Arterial Blood Pressure 117/68 Arterial Blood Pressure 136/70 Arterial Blood Pressure 123/70 Arterial Blood Pressure 127/70 Arterial Blood Pressure 148/78 Arterial Blood Pressure 122/75 Arterial Blood Pressure 125/78 Arterial Blood Pressure 133/75 Arterial Blood Pressure 125/83 Arterial Blood Pressure 130/77 Arterial Blood Pressure 136/74 General: Lying in bed and does not appear in acute distress. Respiratory: Intubated on ventilator. Neuro: Limited. Patient is on IV Propofol 50mcg/kg/min. Is comatose GCS 3 (E1, VT1, M1). Pupils are round, equal, 2mm and reactive to light. Is breathing over the vent. Motor: Strength is limited. Has decrease tone throughout. Reflex: Brisk over the right. Plantars mute bilaterally. Results - Laboratory Findings CBC and BMP: 06/10/24 05:26 06/10/24 05:26 Abnormal Lab Findings: Abnormal Labs 06/06/24 06/06/24 06/06/24 11:14 11:14 16:28 WBC RBC 3.62 L Hgb 9.9 L Hct 32.5 L MCHC 30.3 L RDW 16.1 H Plt Count 648 H Lymphocytes # 0.9 L ABG pH ABG pCO2 ABG pO2 ABG HCO3 ABG Total CO2 ABG O2 Saturation ABG Hematocrit ABG Ionized Calcium ABG Glucose Hemoglobin Sodium Creatinine 0.47 L Glucose 135 H POC Glucose (mg/dL) 118 H Total Bilirubin 1.6 H Alkaline Phosphatase 153 H Total Protein 5.5 L Albumin 3.2 L Arterial Blood Glucose Crossmatch 06/07/24 06/07/24 06/07/24 06:00 11:53 17:01 WBC RBC Hgb Hct MCHC RDW Plt Count Lymphocytes # ABG pH ABG pCO2 ABG pO2 ABG HCO3 ABG Total CO2 ABG O2 Saturation ABG Hematocrit ABG Ionized Calcium ABG Glucose Hemoglobin Sodium Creatinine Glucose POC Glucose (mg/dL) 126 H 140 H 121 H Total Bilirubin Alkaline Phosphatase Total Protein Albumin Arterial Blood Glucose Crossmatch 06/07/24 06/08/24 06/08/24 20:06 06:17 06:17 WBC RBC 3.58 L Hgb 9.6 L Hct 32.5 L MCHC 29.5 L RDW 16.0 H Plt Count 516 H Lymphocytes # ABG pH ABG pCO2 ABG pO2 ABG HCO3 ABG Total CO2 ABG O2 Saturation ABG Hematocrit ABG Ionized Calcium ABG Glucose Hemoglobin Sodium Creatinine 0.61 L Glucose 143 H POC Glucose (mg/dL) 166 H Total Bilirubin Alkaline Phosphatase 141 H Total Protein 5.5 L Albumin 3.1 L Arterial Blood Glucose Crossmatch 06/08/24 06/08/24 06/08/24 06:25 11:51 17:02 WBC RBC Hgb Hct MCHC RDW Plt Count Lymphocytes # ABG pH ABG pCO2 ABG pO2 ABG HCO3 ABG Total CO2 ABG O2 Saturation ABG Hematocrit ABG Ionized Calcium ABG Glucose Hemoglobin Sodium Creatinine Glucose POC Glucose (mg/dL) 171 H 147 H 263 H Total Bilirubin Alkaline Phosphatase Total Protein Albumin Arterial Blood Glucose Crossmatch 06/08/24 06/08/24 06/09/24 18:47 20:01 11:20 WBC RBC Hgb Hct MCHC RDW Plt Count Lymphocytes # ABG pH ABG pCO2 ABG pO2 ABG HCO3 ABG Total CO2 ABG O2 Saturation ABG Hematocrit ABG Ionized Calcium ABG Glucose Hemoglobin Sodium Creatinine Glucose POC Glucose (mg/dL) 141 H 115 H Total Bilirubin Alkaline Phosphatase Total Protein Albumin Arterial Blood Glucose Crossmatch See Detail 06/09/24 06/09/24 06/09/24 15:20 17:19 18:02 WBC RBC Hgb Hct MCHC RDW Plt Count Lymphocytes # ABG pH 7.32 L ABG pCO2 57 H 48 H ABG pO2 115 H 67 L 74 L ABG HCO3 26 H 29 H 28 H ABG Total CO2 25 H 28 H 26 H ABG O2 Saturation 98.0 H 91.0 L ABG Hematocrit 27 L 31 L 30 L ABG Ionized Calcium 4.4 L ABG Glucose 115 H 119 H 115 H Hemoglobin 8.7 L 10.1 L 9.7 L Sodium Creatinine Glucose POC Glucose (mg/dL) Total Bilirubin Alkaline Phosphatase Total Protein Albumin Arterial Blood Glucose 115 H 119 H 115 H Crossmatch 06/09/24 06/09/24 06/10/24 19:16 19:33 00:58 WBC 12.0 H RBC 3.95 L Hgb 11.4 L Hct 36.8 L MCHC 30.9 L RDW 15.7 H Plt Count Lymphocytes # ABG pH 7.27 L ABG pCO2 61 H ABG pO2 80 L ABG HCO3 28 H ABG Total CO2 30 H ABG O2 Saturation 93.8 L ABG Hematocrit ABG Ionized Calcium ABG Glucose Hemoglobin Sodium Creatinine Glucose POC Glucose (mg/dL) 117 H Total Bilirubin Alkaline Phosphatase Total Protein Albumin Arterial Blood Glucose Crossmatch 06/10/24 06/10/24 06/10/24 00:58 05:26 05:26 WBC RBC 3.85 L Hgb 10.8 L Hct 35.7 L MCHC 30.2 L RDW 15.9 H Plt Count Lymphocytes # 0.7 L ABG pH ABG pCO2 ABG pO2 ABG HCO3 ABG Total CO2 ABG O2 Saturation ABG Hematocrit ABG Ionized Calcium ABG Glucose Hemoglobin Sodium 136 L Creatinine 0.50 L 0.44 L Glucose 112 H POC Glucose (mg/dL) Total Bilirubin Alkaline Phosphatase Total Protein Albumin Arterial Blood Glucose Crossmatch 06/10/24 05:53 WBC RBC Hgb Hct MCHC RDW Plt Count Lymphocytes # ABG pH ABG pCO2 ABG pO2 ABG HCO3 28 H ABG Total CO2 29 H ABG O2 Saturation 98.4 H ABG Hematocrit ABG Ionized Calcium ABG Glucose Hemoglobin Sodium Creatinine Glucose POC Glucose (mg/dL) Total Bilirubin Alkaline Phosphatase Total Protein Albumin Arterial Blood Glucose Crossmatch Assessment and Plan Assessment: Is a 58-year-old gentleman with history of atrial fibrillation status post cardioversion on Xarelto, diabetes mellitus, heart failure, cervical myelopathy, back pain and had recent L2 to pelvis decompression and fusion of bilateral open SI joint on 05/19/2024 who had a recent fall with back pain. Patient yesterday had L2-L3 fracture and has hardware failure of the thoracic spine to pelvis. 3 the patient had L1-L2 and L3 revision T10 to pelvis posterior lateral instrumented fusion with hardware removal. His Xarelto was held 48 hours and it seems last dose was on 06/08/2024 per the nurse. Today when the sedation was held the patient was not moving the right side and CT of the head shows acute to subacute over the left frontal parietal region. Acute to subacute stroke (seems more subacute) over the left frontal parietal region (has right hemiparesis). Stroke seems more embolic especially with a history of A-fib and anticoagulation held. No IV thrombolytic since outside window and risk outweight benefit. Last normal was yesterday at 3pm and his deficit was noted today in morning. Recent fall with back pain and it seems that the patient has L2-L3 Fracture s/p revision T10 to Pelvis posterior lateral instrument fusion with hardware removal POD#1 Intubated on a ventilator History of atrial fibrillation status post cardioversion and was on Xarelto and the Xarelto was held for the last 48 hours History of cervical myelopathy status post C2-T2 decompression and fusion Recent recent L2 to pelvis decompression and fusion of bilateral open SI joint on 05/19/2024 History of Systolic Heart failure and recent 2D echo on 06/08/24 has EF 25-30% Diabetes mellitus Chronic hypertension History of hyperlipidemia History of obstructive sleep apnea Former tobacco use Plan: I notified the nursing staff to activate the code stroke and to obtain CT angiography of the head and neck. If patient has any thrombus and is a candidate for intervention will speak with the interventionalists team. I spoke with the orthopedic surgery team and he stated that he was okay of starting heparin drip from orthopedic standpoint. Will start heparin drip since the benefits outweigh the risk. Please avoid any heparin boluses and keep PTT between 45 and 60 to avoid any hemorrhagic conversion.. Will hold off resuming Xarelto as of the recent acute stroke and will use heparin drip instead. This was relayed to the cardiology team. He is on Lipitor 4 mg nightly Continue neurochecks Cardiac monitoring PT OT and are consulted Will defer the rest of the medical management the primary and other specialist DVT prophylaxis the patient will be started on heparin drip Plan discussed with the orthopedic team and ICU nursing staff. Thank for the consultation Time with Patient: Greater than 30
[2024-06-10] MEDS: HEPARIN SOD,PORK IN 0.45% NACL 25,000 UNIT in 0.45% NACL 1 250ML.BAG IV SCH (14:02)
[2024-06-10 14:09] LABS: Anisocytosis Slight; Basophils % (A) 0 %; Eosinophils % (A) 0 %; HCT 35.1 % (39.0-53.0); HGB 11.2 gm/dL (13.0-17.5); Hypochromasia Marked; Lymphocytes # (A) 0.7 k/uL (1.0-4.8); Lymphocytes % (A) 6 %; MCH 29.2 pg (25.0-35.0); MCV 91.1 fL (80.0-100.0); Mean Platelet Volume 7.9; Monocytes # (A) 1.2 k/uL (0-1.0); Monocytes % (A) 10 %; Neutrophils % (A) 83 %; Platelet Count 299 k/uL (150-450); Poikilocytosis Moderate; RBC 3.85 m/uL (4.30-5.90); RDW 16.3 % (11.5-15.5); WBC 12.1 k/uL (3.8-10.6)
--- NOTE | 2024-06-10 14:12 | CT ---
EXAMINATION TYPE: CT angio head neck DATE OF EXAM: 06/10/2024 COMPARISON: None HISTORY: CVA symptoms CT DLP: 975.2 mGycm CONTRAST: Performed with IV Contrast, patient injected with 70ml mL of Isovue 370. Combination Contrast CTA cervical carotids and [place] CTA cervical carotids with 3-D recons truction Contrast CTA of the cervical carotids was performed 3-D reconstruction imaging obtained at a separate workstation. Right carotid system: Mild plaque is seen of the right common carotid artery. There is mild plaque a lso noted at the carotid bulb and proximal ICA. No significant diameter reduction. ECA is patent. Right vertebral artery appears unremarkable. Left carotid system: Mild plaque is seen of the left common carotid artery. There is mild plaque als o noted at the carotid bulb and proximal ICA. No significant diameter reduction. ECA is patent. Lef t vertebral artery appears unremarkable. Bilateral compressive atelectasis and pleural effusions. IMPRESSION: 1. No significant diameter reduction to account for the patient's symptoms. CTA [place] with 3-D reconstruction Contrast CTA of the [place] was performed 3-D reconstruction imaging obtained at a separate workstation. Vertebrobasilar system as well as intracranial portions of the internal carotid arteries and their ma ros tributaries are patent. I do not see evidence for sizable aneurysm or vascular malformation. Pl ease note MRI provides greater sensitivity and specificity. Area of hypoattenuation as described on t he prior CT brain left frontal parietal region compatible with findings of acute/subacute CVA. IMPRESSION: 1. Area of hypoattenuation as described on the prior CT brain left frontal parietal region compatible with findings of acute/subacute CVA. NASCET criteria was used in interpretation of this exam?
[2024-06-10 14:25] LABS: INR 1.1 (<1.2); Partial Thromboplastin Time 24.3 sec (22.0-30.0); Prothrombin Time 12.1 sec (10.0-12.5)
[2024-06-10 15:56] LABS: Chol/HDL Ratio 2.39 Ratio; LDL Cholesterol,Calculated 18.9 mg/dL (0.0-131.0); VLDL Calculation 13.66 mg/dL (5.00-40.00)
[2024-06-10 17:56] LABS: Glucose,Whole Blood 108 mg/dL (70-110)
[2024-06-10] MEDS ORDERED: DEXTROSE 50% SYRINGE 50 ML IVP PRN ×2 (23:56)
[2024-06-11 00:13] LABS: Glucose,Whole Blood 114 mg/dL (70-110)
[2024-06-11] MEDS: INSULIN ASPART (NovoLOG) 100 UNIT/ML VIAL SQ SCH (00:40)
[2024-06-11 04:42] LABS: Anisocytosis Slight; Basophils % (A) 0 %; Eosinophils # (A) 0.1 k/uL (0-0.7); Eosinophils % (A) 1 %; HCT 32.3 % (39.0-53.0); Hypochromasia Marked; Lymphocytes # (A) 0.5 k/uL (1.0-4.8); Lymphocytes % (A) 6 %; MCH 28.5 pg (25.0-35.0); MCHC 30.8 g/dL (31.0-37.0); MCV 92.6 fL (80.0-100.0); Mean Platelet Volume 7.9; Monocytes % (A) 11 %; Neutrophils # (A) 7.2 k/uL (1.3-7.7); Neutrophils % (A) 80 %; Platelet Count 262 k/uL (150-450); Poikilocytosis Moderate; RBC 3.49 m/uL (4.30-5.90); RDW 16.4 % (11.5-15.5); WBC 8.9 k/uL (3.8-10.6)
[2024-06-11 05:04] LABS: African American GFR (CKD) >90 (>60 ml/min/1.73 sqM); Anion Gap 7 mmol/L; Blood Urea Nitrogen 14 mg/dL (9-20); Calcium 8.4 mg/dL (8.4-10.2); Carbon Dioxide 24 mmol/L (22-30); Chloride 105 mmol/L (98-107); Glucose 109 mg/dL (74-99); Non-African American GFR(CKD) >90 (>60 ml/min/1.73 sqM); Sodium 136 mmol/L (137-145)
[2024-06-11 05:16] LABS: Potassium 4.2 mmol/L (3.5-5.1)
[2024-06-11 05:41] LABS: Glucose,Whole Blood 138 mg/dL (70-110)
[2024-06-11 05:43] LABS: ABG Base Excess 3.1 mmol/L; ABG HCO3 27 mmol/L (21-25); ABG Oxygen Saturation 99.4 % (94-97); ABG PCO2 37 mmHg (35-45); ABG PH 7.47 (7.35-7.45); ABG PO2 118 mmHg (83-108); ABG TCO2 28 mmol/L (19-24)
--- NOTE | 2024-06-11 06:44 | XR ---
EXAMINATION TYPE: XR chest 1V portable DATE OF EXAM: 06/11/2024 COMPARISON: 06/10/2024 INDICATION: Tube placement TECHNIQUE: Single frontal view of the chest is obtained. FINDINGS: The heart size is enlarged. The pulmonary vasculature is upper limits of normal. No suspicious focal consolidation evident. Endotracheal tube tip is above the shashank. Distal nasogastric tube is not identified. IMPRESSION: 1. Cardiomegaly. 2. Endotracheal tube tip above the shashank. 3. Distal tip of the nasogastric tube not identified.
--- NOTE | 2024-06-11 07:42 | P.PN ---
Subjective Progress Note Date: 06/11/24 Principal diagnosis: Hardware failure lumbar spine L2-L3 fracture History of recent [id number] decompression and fusion and open bilateral SI joint fusion Patient seen and examined this morning in the ICU. Our service was notified yesterday that patient was flaccid right upper and lower extremities and involuntary movements of his left upper and lower extremities. He was sent for CTA head and neck, this demonstrated findings of acute/subacute CVA. He is currently on mechanical ventilation, FiO2 is currently set at 60 and PEEP at 5, O2 saturation is at 98%. VSS. Surgical incision to the thoracolumbar spine, Hemovac is present and patent with 300 mL output overnight. Maintain hemovac at half compression at this time. Objective - Vital Signs Vital signs: Vital Signs Temp 99.7 F H 06/11/24 04:00 Pulse 91 06/11/24 06:30 Resp 25 H 06/11/24 07:00 BP 98/66 06/11/24 06:45 Pulse Ox 98 06/11/24 07:00 FiO2 60 06/11/24 04:25 Intake & Output 06/10/24 06/11/24 06/11/24 18:59 06:59 18:59 Intake Total 724.301 2866.799 Output Total 1100 1345 Balance -261.351 -309.201 Weight 115.6 kg 114.8 kg Intake: IV 220 140 ceFAZolin 2 gm In Sodium 100 Chloride 0.9% 50 ml @ 100 mls/hr IVPB Q8HR [facility] Rx# :[id number] kvo 120 140 Intake, IV Titration 618.649 605.799 Amount Heparin Sod,Pork in 0.45% 190.872 NaCl 25,000 unit In 0.45 % NaCl 1 250ml.bag @ 8.65 UNITS/KG/HR 9.999 mls/hr IV .Q24H [facility] Rx#: [id number] Norepinephrine 4 mg In 218.919 5.016 Sodium Chloride 0.9% 250 ml @ 0.03 MCG/KG/MIN 13. 087 mls/hr IV .[id number] [facility] Rx#:[id number] propofoL 1,000 mg In 399.730 409.911 Empty Bag 1 bag @ 15 MCG/ KG/MIN 10.305 mls/hr IV . Q9H43M [facility] Rx#:[id number] Tube Feeding 200 Other 90 Output: Drainage 200 380 Right Back 200 380 Urine 900 965 Other: Voiding Method Indwelling Catheter Indwelling Catheter # Bowel Movements 0 ABP, PAP, CO, CI - Last Documented Arterial Blood Pressure 118/78 - Exam Physical Examination General: The patient is on mechanical ventilation, in no acute distress Skin: Skin is warm and dry with no obvious rashes or lesions. Surgical incision to the lumbar spine, Hemovac is present and patent with 300 mL output overnight. Maintain hemovac at half compression. - Labs CBC & Chem 7: 06/11/24 04:23 06/11/24 04:23 Labs: Abnormal Lab Results - Last 24 Hours (Table) 06/10/24 06/10/24 06/11/24 Range/Units 05:26 13:53 00:11 WBC 12.1 H (3.8-10.6) k/uL RBC 3.85 L (4.30-5.90) m/uL Hgb 11.2 L (13.0-17.5) gm/dL Hct 35.1 L (39.0-53.0) % MCHC (31.0-37.0) g/dL RDW 16.3 H (11.5-15.5) % Neutrophils # 10.0 H (1.3-7.7) k/uL Lymphocytes # 0.7 L (1.0-4.8) k/uL Monocytes # 1.2 H (0-1.0) k/uL ABG pH (7.35-7.45) ABG pO2 (83-108) mmHg ABG HCO3 (21-25) mmol/L ABG Total CO2 (19-24) mmol/L ABG O2 Saturation (94-97) % Sodium (137-145) mmol/L Creatinine (0.66-1.25) mg/dL Glucose (74-99) mg/dL POC Glucose (mg/dL) 114 H (70-110) mg/dL HDL Cholesterol 23.40 L (40.00-60.00) mg/dL 06/11/24 06/11/24 06/11/24 Range/Units 04:23 04:23 04:29 WBC (3.8-10.6) k/uL RBC 3.49 L (4.30-5.90) m/uL Hgb 10.0 L (13.0-17.5) gm/dL Hct 32.3 L (39.0-53.0) % MCHC 30.8 L (31.0-37.0) g/dL RDW 16.4 H (11.5-15.5) % Neutrophils # (1.3-7.7) k/uL Lymphocytes # 0.5 L (1.0-4.8) k/uL Monocytes # (0-1.0) k/uL ABG pH 7.47 H (7.35-7.45) ABG pO2 118 H (83-108) mmHg ABG HCO3 27 H (21-25) mmol/L ABG Total CO2 28 H (19-24) mmol/L ABG O2 Saturation 99.4 H (94-97) % Sodium 136 L (137-145) mmol/L Creatinine 0.37 L (0.66-1.25) mg/dL Glucose 109 H (74-99) mg/dL POC Glucose (mg/dL) (70-110) mg/dL HDL Cholesterol (40.00-60.00) mg/dL 06/11/24 Range/Units 05:39 WBC (3.8-10.6) k/uL RBC (4.30-5.90) m/uL Hgb (13.0-17.5) gm/dL Hct (39.0-53.0) % MCHC (31.0-37.0) g/dL RDW (11.5-15.5) % Neutrophils # (1.3-7.7) k/uL Lymphocytes # (1.0-4.8) k/uL Monocytes # (0-1.0) k/uL ABG pH (7.35-7.45) ABG pO2 (83-108) mmHg ABG HCO3 (21-25) mmol/L ABG Total CO2 (19-24) mmol/L ABG O2 Saturation (94-97) % Sodium (137-145) mmol/L Creatinine (0.66-1.25) mg/dL Glucose (74-99) mg/dL POC Glucose (mg/dL) 138 H (70-110) mg/dL HDL Cholesterol (40.00-60.00) mg/dL Assessment and Plan Assessment: Postop day 2: Revision [id number] decompression and fusion with T8 kyphoplasty Acute/subacute stroke Multiple complex medical comorbidities Plan: -Appreciate supply chain consultant and team management. -Activity: Bedrest at this time, encourage increase in activity when patient is exubated and medically stable. -Pain control: Adequate at this time -Meds: reviewed -GI ppx: senna -DVT PPX: TEDs, SCDs, Heparin -Hygiene: Maintain dressing clean and dry. Meticulous cleaning after BMs away from the incision site -Drain Management: Continue to document output every shift. Maintain hemovac at half compression -Encourage IS 10x/hr *I reviewed and discussed this case with my attending Dr. Jeffrey, whom has reviewed this chart and films and is in agreement with assessment and plan of care as outlined above. I have personally seen and examined the patient, performed the documentation and the assessment and plan as written. Number of minutes spent on the visit: 20m.
--- NOTE | 2024-06-11 09:15 | P.PN ---
Subjective Progress Note Date: 06/11/24 The patient is a 58-year-old male with multiple comorbid conditions and follows in the office with Dr. Menard. Cardiology was consulted for preoperative clearance as the patient sustained a mechanical fall and suffered a lumbar spine fracture. Yesterday the patient underwent open treatment of L1-L2 fracture with revision of T10 through pelvis decompression and fusion with stabilization. The patient did have intraoperative blood loss at approximately 800 mL. He remains in the ICU on ventilator, with minimal vasopressor support. On 06/10/2024, when weaning from the ventilator, patient was noted to have right- sided weakness. CT scan of the head shows subacute stroke in the left frontal parietal region. Per clearance from surgery, heparin was started as Xarelto was held for surgery. GENERAL: Ill-appearing, well-nourished and in no acute distress. Sedated on ventilator NECK: Supple without JVD or thyromegaly. LUNGS: Breath sounds diminished to auscultation bilaterally. Respiration equal and unlabored. No wheezes, rales or rhonchi. HEART: Irregular rate and rhythm without murmurs, rubs or gallops. S1 and S2 heard. EXTREMITIES: Normal range of motion, mild edema. No clubbing or cyanosis. Peripheral pulses intact and strong. TELEMETRY: Rate controlled atrial fibrillation with heart rates in the 90-low 100s LABS: WBC 8.9, hemoglobin 10.0, hematocrit 32.3, platelet 262, sodium 136, potassium 4.2, BUN 14, creatinine 0.37, hemoglobin A1c 6.6, magnesium 2.2 IMPRESSION: Status post mechanical fall Recent revision of L2 to pelvis posterior lateral decompression and fusion with bilateral open SI joint fusions on 05/19/2024 Hardware failure of L2-L3, status post L1-L2 revision and T10 through pelvis decompression and fusion Persistent atrial fibrillation Hypertension Hyperlipidemia Diabetes Cardiomyopathy, unspecified type, EF 25 to 30% PLAN: Switch to metoprolol tartrate 50 mg 3 times daily Continue all other cardiac medications Transition back to oral anticoagulation when extubated Further recommendations to be based upon clinical course I am dictating on behalf of Dr Michele Silveira's history/physical and assessment/plan. Objective - Vital Signs Vital signs: Vital Signs Temp 99.7 F H 06/11/24 04:00 Pulse 109 H 06/11/24 08:13 Resp 25 H 06/11/24 07:00 BP 98/66 06/11/24 06:45 Pulse Ox 98 06/11/24 07:00 FiO2 50 06/11/24 07:58 Intake & Output 06/10/24 06/11/24 06/11/24 18:59 06:59 18:59 Intake Total 045.047 7327.799 Output Total 1100 1345 Balance -261.351 -309.201 Weight 115.6 kg 114.8 kg Intake: IV 220 140 ceFAZolin 2 gm In Sodium 100 Chloride 0.9% 50 ml @ 100 mls/hr IVPB Q8HR [facility] Rx# :[id number] kvo 120 140 Intake, IV Titration 618.649 605.799 Amount Heparin Sod,Pork in 0.45% 190.872 NaCl 25,000 unit In 0.45 % NaCl 1 250ml.bag @ 8.65 UNITS/KG/HR 9.999 mls/hr IV .Q24H [facility] Rx#: [id number] Norepinephrine 4 mg In 218.919 5.016 Sodium Chloride 0.9% 250 ml @ 0.03 MCG/KG/MIN 13. 087 mls/hr IV .[id number] [facility] Rx#:[id number] propofoL 1,000 mg In 399.730 409.911 Empty Bag 1 bag @ 15 MCG/ KG/MIN 10.305 mls/hr IV . Q9H43M [facility] Rx#:[id number] Tube Feeding 200 Other 90 Output: Drainage 200 380 Right Back 200 380 Urine 900 965 Other: Voiding Method Indwelling Catheter Indwelling Catheter # Bowel Movements 0 ABP, PAP, CO, CI - Last Documented Arterial Blood Pressure 118/78 - Labs CBC & Chem 7: 06/11/24 04:23 06/11/24 04:23 Labs: Abnormal Lab Results - Last 24 Hours (Table) 06/10/24 06/10/24 06/11/24 Range/Units 05:26 13:53 00:11 WBC 12.1 H (3.8-10.6) k/uL RBC 3.85 L (4.30-5.90) m/uL Hgb 11.2 L (13.0-17.5) gm/dL Hct 35.1 L (39.0-53.0) % MCHC (31.0-37.0) g/dL RDW 16.3 H (11.5-15.5) % Neutrophils # 10.0 H (1.3-7.7) k/uL Lymphocytes # 0.7 L (1.0-4.8) k/uL Monocytes # 1.2 H (0-1.0) k/uL ABG pH (7.35-7.45) ABG pO2 (83-108) mmHg ABG HCO3 (21-25) mmol/L ABG Total CO2 (19-24) mmol/L ABG O2 Saturation (94-97) % Sodium (137-145) mmol/L Creatinine (0.66-1.25) mg/dL Glucose (74-99) mg/dL POC Glucose (mg/dL) 114 H (70-110) mg/dL Hemoglobin A1c (<=6.0) % HDL Cholesterol 23.40 L (40.00-60.00) mg/dL 06/11/24 06/11/24 06/11/24 Range/Units 04:23 04:23 04:23 WBC (3.8-10.6) k/uL RBC 3.49 L (4.30-5.90) m/uL Hgb 10.0 L (13.0-17.5) gm/dL Hct 32.3 L (39.0-53.0) % MCHC 30.8 L (31.0-37.0) g/dL RDW 16.4 H (11.5-15.5) % Neutrophils # (1.3-7.7) k/uL Lymphocytes # 0.5 L (1.0-4.8) k/uL Monocytes # (0-1.0) k/uL ABG pH (7.35-7.45) ABG pO2 (83-108) mmHg ABG HCO3 (21-25) mmol/L ABG Total CO2 (19-24) mmol/L ABG O2 Saturation (94-97) % Sodium 136 L (137-145) mmol/L Creatinine 0.37 L (0.66-1.25) mg/dL Glucose 109 H (74-99) mg/dL POC Glucose (mg/dL) (70-110) mg/dL Hemoglobin A1c 6.6 H (<=6.0) % HDL Cholesterol (40.00-60.00) mg/dL 06/11/24 06/11/24 Range/Units 04:29 05:39 WBC (3.8-10.6) k/uL RBC (4.30-5.90) m/uL Hgb (13.0-17.5) gm/dL Hct (39.0-53.0) % MCHC (31.0-37.0) g/dL RDW (11.5-15.5) % Neutrophils # (1.3-7.7) k/uL Lymphocytes # (1.0-4.8) k/uL Monocytes # (0-1.0) k/uL ABG pH 7.47 H (7.35-7.45) ABG pO2 118 H (83-108) mmHg ABG HCO3 27 H (21-25) mmol/L ABG Total CO2 28 H (19-24) mmol/L ABG O2 Saturation 99.4 H (94-97) % Sodium (137-145) mmol/L Creatinine (0.66-1.25) mg/dL Glucose (74-99) mg/dL POC Glucose (mg/dL) 138 H (70-110) mg/dL Hemoglobin A1c (<=6.0) % HDL Cholesterol (40.00-60.00) mg/dL Microbiology - Last 24 Hours (Table) 06/09/24 18:00 Gram Stain - Preliminary Other - Other 06/09/24 17:52 Gram Stain - Preliminary Other - Other
--- NOTE | 2024-06-11 11:00 | P.PN ---
Subjective Progress Note Date: 06/11/24 Principal diagnosis: CVA. Patient is a 58-year-old white male with past medical history significant for obstructive sleep apnea with home CPAP, COPD, ex tobacco smoker, marijuana smoker, atrial fibrillation with previous cardioversion and anticoagulated on Xarelto, diabetes mellitus, hypertension, heart failure, and previous spinal surgeries. His primary care provider is Dr. Deuce Brito. He is currently intubated to the mechanical ventilator, unable to provide any information for HPI. Of note, patient recently underwent an L2 to pelvis posterior lateral decompression and fusion on 05/19/2024 at [facility]. During this admission, he initially was recovered in the intensive care unit. Technically, difficult to extubate, and did require BiPAP support immediately after extubation. He was eventually discharged home on 05/26/2024. Patient returned the emergency department on 06/06/2024. On review of the ER documentation, he had a fall while at home. CT of the lumbar spine demonstrated new compression fracture of L2 vertebral body with compression of the vertebral body down to the pedicle screws bilaterally and loosening the left pedicle screw. New left pedicle/transverse process of L2 and L3 fractures around the hardware with mild displacement. Fractures of the right transverse process of L2 and L3. Likely postsurgical subcutaneous gas in the surgical bed. Patient underwent revision thoracic T10 to pelvis decompression fusion yesterday. Intraoperatively, patient had an EBL of 1 L. He has received a total of 5 units of PRBCs, 1 FFP, and 1 pack platelets. He was sent to the intensive care unit postoperatively. He remains on the mechanical ventilator. Chest x-ray shows the endotracheal tube approximately 4.3 cm above the shashank. There is cardiomegaly with pulmonary vascular congestion suggested. No pleural effusions, pneumothoraces, focal consolidations. Initial ABG had a PaO2 of 80, pCO2 of 61, pH of 7.27. This was done on original ventilator settings of assist-control, respiratory rate 14, tidal volume 500, FiO2 1 9%, and PEEP of 5. My supervising physician is already increased the patient's respiratory rate to 20. He is currently synchronous with mechanical ventilator. There is a moderate amount of clear to white endotracheal secretions. Peak pressures 23. He is sedated with propofol which is currently infusing at 50 mcg/kg/min. He is fairly unarousable. Will withdraw to painful stimuli in all 4 extremities. There is also norepinephrine infusing at 0.02 mcg/kg/min. There is a MAP goal of 80 mmHg to support [employer] perfusion. LR is infusing at 10 MLS per hour. There is a Hemovac with a total of 220 serosanguineous output since surgery. We are awaiting postoperative labs. Preoperatively, CBC: WBC count 9.4, hemoglobin 9.6, hematocrit 32.5, platelets 516. Preoperative CMP: Sodium 137, potassium 4.1, chloride 104, serum bicarb 27, BUN 18, creatinine 0.61, glucose 143. LFTs unremarkable. Receiving prophylactic cefazolin. Note that preoperatively, patient did have a cardiac evaluation. Repeat echocardiogram shows a severely reduced left ventricular ejection fraction of 25 to 30% as well as mild mitral and tricuspid regurgitation. Heart rhythm is atrial fibrillation with controlled ventricular response. Normally anticoagulated on Xarelto, however, this is on hold for surgery. Progress note dated June 11, 2024. 58-year-old male recently had additional back surgery, including a T10 to pelvic decompression and fusion. Please see my consultation from yesterday. Today is postop day #2. The patient was brought back to the ICU on the ventilator. Will be woke him up for the daily interruption of sedation yesterday, it was noted that he was not moving his right side. He was sent for an immediate CT scan without contrast. It showed a subacute left frontoparietal CVA. It was isch emic in nature. He remains on mechanical ventilator. He is on volume assist- control, rate 20, tidal line 500, FiO2 50% to be dropped down to 40%, and PEEP of 5. Blood gases show pO2 118, pCO2 37, pH is 7.47. The patient is taking propofol at 50 mcg/kg/min, saline at KVO norepinephrine at 2 mcg/min IV heparin, and vital HP at 20 cc an hour with a goal of 37 cc. White count 8.9, hemoglobin 10, hematocrit 32.3, platelet count 262,000. PTT is 36.6. Sodium 136, potassium 4.2, chlorides 105, CO2 24, BUN 14, creatinine 0.37. Glucose is 138. Hemoglobin A1c is 6.6. Chest x-ray is essentially within normal range today for cardiomegaly. Objective - Vital Signs Vital signs: Vital Signs Temp 99.0 F 07/18/24 08:00 Pulse 109 H 06/11/24 10:00 Resp 25 H 06/11/24 10:00 BP 98/66 06/11/24 06:45 Pulse Ox 96 06/11/24 10:00 FiO2 80 06/11/24 08:00 Intake & Output 06/10/24 06/11/24 06/11/24 18:59 06:59 18:59 Intake Total 923.613 7221.799 120 Output Total 1100 1345 200 Balance -261.351 -309.201 -80 Weight 115.6 kg 114.8 kg Intake: IV 220 140 30 ceFAZolin 2 gm In Sodium 100 Chloride 0.9% 50 ml @ 100 mls/hr IVPB Q8HR [facility] Rx# :[id number] kvo 120 140 30 Intake, IV Titration 618.649 605.799 Amount Heparin Sod,Pork in 0.45% 190.872 NaCl 25,000 unit In 0.45 % NaCl 1 250ml.bag @ 8.65 UNITS/KG/HR 9.999 mls/hr IV .Q24H [facility] Rx#: [id number] Norepinephrine 4 mg In 218.919 5.016 Sodium Chloride 0.9% 250 ml @ 0.03 MCG/KG/MIN 13. 087 mls/hr IV .[id number] [facility] Rx#:[id number] propofoL 1,000 mg In 399.730 409.911 Empty Bag 1 bag @ 15 MCG/ KG/MIN 10.305 mls/hr IV . Q9H43M [facility] Rx#:[id number] Tube Feeding 200 60 Other 90 30 Output: Drainage 200 380 Right Back 200 380 Urine 900 965 200 Other: Voiding Method Indwelling Catheter Indwelling Catheter Indwelling Catheter # Bowel Movements 0 ABP, PAP, CO, CI - Last Documented Arterial Blood Pressure 130/76 - Exam No acute distress, sedated, with an orally placed endotracheal tube. HEENT examination is grossly unremarkable. Mucous membranes are moist. No oral lesions. Neck supple. Full range of motion. No adenopathy thyromegaly or neck vein distention. Cardiovascular examination reveals regular rhythm rate. S1-S2 normal. No S3 or S4. No discernible murmur noted. Heart rate 100 bpm. Lungs reveal mostly clear breath sounds. Minimal scattered rhonchi. No wheezes or crackles. Breath sounds equal. Saturations are 96%. Abdomen soft bowel sounds are heard. No masses or tenderness. Extremities are intact. No cyanosis clubbing or edema. Skin is without rash or lesion. Neurologic examination cannot be assessed at this time. - Labs CBC & Chem 7: 06/11/24 04:23 06/11/24 04:23 Labs: Abnormal Lab Results - Last 24 Hours (Table) 06/10/24 06/10/24 06/11/24 Range/Units 05:26 13:53 00:11 WBC 12.1 H (3.8-10.6) k/uL RBC 3.85 L (4.30-5.90) m/uL Hgb 11.2 L (13.0-17.5) gm/dL Hct 35.1 L (39.0-53.0) % MCHC (31.0-37.0) g/dL RDW 16.3 H (11.5-15.5) % Neutrophils # 10.0 H (1.3-7.7) k/uL Lymphocytes # 0.7 L (1.0-4.8) k/uL Monocytes # 1.2 H (0-1.0) k/uL APTT (22.0-30.0) sec ABG pH (7.35-7.45) ABG pO2 (83-108) mmHg ABG HCO3 (21-25) mmol/L ABG Total CO2 (19-24) mmol/L ABG O2 Saturation (94-97) % Sodium (137-145) mmol/L Creatinine (0.66-1.25) mg/dL Glucose (74-99) mg/dL POC Glucose (mg/dL) 114 H (70-110) mg/dL Hemoglobin A1c (<=6.0) % HDL Cholesterol 23.40 L (40.00-60.00) mg/dL 06/11/24 06/11/24 06/11/24 Range/Units 04: 04:23 04:23 WBC (3.8-10.6) k/uL RBC 3.49 L (4.30-5.90) m/uL Hgb 10.0 L (13.0-17.5) gm/dL Hct 32.3 L (39.0-53.0) % MCHC 30.8 L (31.0-37.0) g/dL RDW 16.4 H (11.5-15.5) % Neutrophils # (1.3-7.7) k/uL Lymphocytes # 0.5 L (1.0-4.8) k/uL Monocytes # (0-1.0) k/uL APTT (22.0-30.0) sec ABG pH (7.35-7.45) ABG pO2 (83-108) mmHg ABG HCO3 (21-25) mmol/L ABG Total CO2 (19-24) mmol/L ABG O2 Saturation (94-97) % Sodium 136 L (137-145) mmol/L Creatinine 0.37 L (0.66-1.25) mg/dL Glucose 109 H (74-99) mg/dL POC Glucose (mg/dL) (70-110) mg/dL Hemoglobin A1c 6.6 H (<=6.0) % HDL Cholesterol (40.00-60.00) mg/dL 06/11/24 06/11/24 06/11/24 Range/Units 04:29 05:39 09:35 WBC (3.8-10.6) k/uL RBC (4.30-5.90) m/uL Hgb (13.0-17.5) gm/dL Hct (39.0-53.0) % MCHC (31.0-37.0) g/dL RDW (11.5-15.5) % Neutrophils # (1.3-7.7) k/uL Lymphocytes # (1.0-4.8) k/uL Monocytes # (0-1.0) k/uL APTT 36.6 H (22.0-30.0) sec ABG pH 7.47 H (7.35-7.45) ABG pO2 118 H (83-108) mmHg ABG HCO3 27 H (21-25) mmol/L ABG Total CO2 28 H (19-24) mmol/L ABG O2 Saturation 99.4 H (94-97) % Sodium (137-145) mmol/L Creatinine (0.66-1.25) mg/dL Glucose (74-99) mg/dL POC Glucose (mg/dL) 138 H (70-110) mg/dL Hemoglobin A1c (<=6.0) % HDL Cholesterol (40.00-60.00) mg/dL Microbiology - Last 24 Hours (Table) 06/09/24 18:00 Gram Stain - Preliminary Other - Other 06/09/24 17:52 Gram Stain - Preliminary Other - Other Assessment and Plan Assessment: Status post fall, with L2 vertebral body compression fracture, L2-L3 right-sided transverse process fractures, and L2-L3 left-sided pedicle/transverse process fractures. Status postoperative day #2 following a revision T10 to pelvis decompression and fusion with stabilization. Routine postoperative mechanical ventilator management. Recent L2 to pelvis posterior lateral decompression and fusion on 05/19/2024. Acute blood loss anemia, patient has received a total of 5 units of PRBCs perioperatively, 1 pack platelets, and is going to receive 1 unit FFP. Hypotension, currently on norepinephrine. Heart failure with reduced ejection fraction. Chronic atrial fibrillation. History of hypertension. History of hyperlipidemia. History of diabetes mellitus. Obesity, with a BMI of 38.4 kg/m. History of obstructive sleep apnea. Chronic obstructive pulmonary disease, stable. Former tobacco smoker. Remote history of prior C2-T2 Decompression and fusion. Plan: Plan dated June 11, 2024. The patient remains in the intensive care unit, on the mechanical ventilator. The patient did not do well yesterday with his daily interruption of sedation. It will be tried again today. The patient's FiO2 was reduced from 50%, down to 40%. The pO2 on the blood gas was 118. The patient continues on propofol at 50 mcg/kg/min, saline at KVO, and norepinephrine at 2 mcg/min. The patient is also receiving IV heparin via weight-based protocol, and vital high-protein, at 20 cc an hour, with a goal of 37 cc. The patient was discovered to have a left frontal parietal CVA, which is thought to be subacute. He is postop day #2. Labs, x-rays, and all medications are reviewed. Time with Patient: Greater than 30
[2024-06-11 11:35] LABS: Glucose,Whole Blood 120 mg/dL (70-110)
[2024-06-11 12:09] LABS: ABG Base Excess 3.9 mmol/L; ABG HCO3 28 mmol/L (21-25); ABG Oxygen Saturation 97.3 % (94-97); ABG PCO2 40 mmHg (35-45); ABG PH 7.46 (7.35-7.45); ABG PO2 87 mmHg (83-108); ABG TCO2 29 mmol/L (19-24); Allen Test Performed? Yes
--- NOTE | 2024-06-11 16:27 | P.PN ---
Subjective Progress Note Date: 06/11/24 I am following up with the patient and according to the nurse he continues to be on IV propofol and went he was on sedation holiday patient continues to be moving the left side spontaneously no movement over the right side. The patient was resumed on IV propofol because of agitation and restlessness. He had CT angiography of the head and neck and no significant stenosis or occlusion. Patient was started on heparin drip yesterday. Objective - Vital Signs Vital signs: Vital Signs Temp 99.1 F 06/11/24 12:00 Pulse 103 H 06/11/24 14:00 Resp 24 06/11/24 14:00 BP 98/66 06/11/24 06:45 Pulse Ox 94 L 06/11/24 14:00 FiO2 40 06/11/24 12:21 Intake & Output 06/10/24 06/11/24 06/11/24 18:59 06:59 18:59 Intake Total 672.555 3136.799 649.753 Output Total 1100 1345 695 Balance -261.351 -309.201 -45.247 Weight 115.6 kg 114.8 kg Intake: IV 220 140 70 ceFAZolin 2 gm In Sodium 100 Chloride 0.9% 50 ml @ 100 mls/hr IVPB Q8HR [facility] Rx# :[id number] kvo 120 140 70 Intake, IV Titration 618.649 605.799 379.753 Amount Heparin Sod,Pork in 0.45% 190.872 89.756 NaCl 25,000 unit In 0.45 % NaCl 1 250ml.bag @ 8.65 UNITS/KG/HR 9.999 mls/hr IV .Q24H [facility] Rx#: [id number] Norepinephrine 4 mg In 218.919 5.016 131.602 Sodium Chloride 0.9% 250 ml @ 0.03 MCG/KG/MIN 13. 087 mls/hr IV .[id number] [facility] Rx#:[id number] propofoL 1,000 mg In 399.730 409.911 158.395 Empty Bag 1 bag @ 15 MCG/ KG/MIN 10.305 mls/hr IV . Q9H43M [facility] Rx#:[id number] Tube Feeding 200 140 Other 90 60 Output: Drainage 200 380 Right Back 200 380 Urine 900 965 695 Other: Voiding Method Indwelling Catheter Indwelling Catheter Indwelling Catheter # Bowel Movements 0 ABP, PAP, CO, CI - Last Documented Arterial Blood Pressure 107/65 - Exam General: Lying in bed and does not appear in acute distress. Respiratory: Intubated on ventilator. Neuro: Limited. Patient is on IV Propofol 40mcg/kg/min. Is comatose GCS 5 (E3, VT1, M1). Pupils are round, equal, 2mm and reactive to light. Is breathing over the vent. Motor: Strength is limited. Has decrease tone throughout. Reflex: Brisk over the right. Plantars mute bilaterally. Some of the other workup during this hospital visit consisted of: Lipid panel is triglyceride 68, cholesterol is 56, LDL is 18 and HDL is 23 Hemoglobin A1c 6.6. The echo on 06/08/2024 is reported as ejection fraction of 25 to 30%. CT head is reported as finding of acute/subacute CVA involving the left frontal parietal region. CTA head and neck is read as no significant diameter reduction to account for the patient's symptoms. Area of hypoattenuation as described on the prior CT brain left frontal parietal region compatible with a finding of acute/subacute CVA. - Labs CBC & Chem 7: 06/11/24 04:23 06/11/24 04:23 Labs: Abnormal Lab Results - Last 24 Hours (Table) 06/11/24 06/11/24 06/11/24 Range/Units 00:11 04:23 04:23 RBC 3.49 L (4.30-5.90) m/uL Hgb 10.0 L (13.0-17.5) gm/dL Hct 32.3 L (39.0-53.0) % MCHC 30.8 L (31.0-37.0) g/dL RDW 16.4 H (11.5-15.5) % Lymphocytes # 0.5 L (1.0-4.8) k/uL APTT (22.0-30.0) sec ABG pH (7.35-7.45) ABG pO2 (83-108) mmHg ABG HCO3 (21-25) mmol/L ABG Total CO2 (19-24) mmol/L ABG O2 Saturation (94-97) % Sodium 136 L (137-145) mmol/L Creatinine 0.37 L (0.66-1.25) mg/dL Glucose 109 H (74-99) mg/dL POC Glucose (mg/dL) 114 H (70-110) mg/dL Hemoglobin A1c (<=6.0) % 06/11/24 06/11/24 06/11/24 Range/Units 04:23 04:29 05:39 RBC (4.30-5.90) m/uL Hgb (13.0-17.5) gm/dL Hct (39.0-53.0) % MCHC (31.0-37.0) g/dL RDW (11.5-15.5) % Lymphocytes # (1.0-4.8) k/uL APTT (22.0-30.0) sec ABG pH 7.47 H (7.35-7.45) ABG pO2 118 H (83-108) mmHg ABG HCO3 27 H (21-25) mmol/L ABG Total CO2 28 H (19-24) mmol/L ABG O2 Saturation 99.4 H (94-97) % Sodium (137-145) mmol/L Creatinine (0.66-1.25) mg/dL Glucose (74-99) mg/dL POC Glucose (mg/dL) 138 H (70-110) mg/dL Hemoglobin A1c 6.6 H (<=6.0) % 06/11/24 06/11/24 06/11/24 Range/Units 09:35 11:32 12:06 RBC (4.30-5.90) m/uL Hgb (13.0-17.5) gm/dL Hct (39.0-53.0) % MCHC (31.0-37.0) g/dL RDW (11.5-15.5) % Lymphocytes # (1.0-4.8) k/uL APTT 36.6 H (22.0-30.0) sec ABG pH 7.46 H (7.35-7.45) ABG pO2 (83-108) mmHg ABG HCO3 28 H (21-25) mmol/L ABG Total CO2 29 H (19-24) mmol/L ABG O2 Saturation 97.3 H (94-97) % Sodium (137-145) mmol/L Creatinine (0.66-1.25) mg/dL Glucose (74-99) mg/dL POC Glucose (mg/dL) 120 H (70-110) mg/dL Hemoglobin A1c (<=6.0) % Microbiology - Last 24 Hours (Table) 06/09/24 18:00 Gram Stain - Preliminary Other - Other Wound Culture - Preliminary Escherichia coli 06/09/24 17:52 Gram Stain - Preliminary Other - Other Wound Culture - Preliminary Escherichia coli Assessment and Plan Assessment: Is a 58-year-old gentleman with history of atrial fibrillation status post cardioversion on Xarelto, diabetes mellitus, heart failure, cervical myelopathy, back pain and had recent L2 to pelvis decompression and fusion of bilateral open SI joint on 05/19/2024 who had a recent fall with back pain. Patient yesterday had L2-L3 fracture and has hardware failure of the thoracic spine to pelvis. 3 the patient had L1-L2 and L3 revision T10 to pelvis posterior lateral instrumented fusion with hardware removal. His Xarelto was held 48 hours and it seems last dose was on 06/08/2024 per the nurse. Today when the sedation was held the patient was not moving the right side and CT of the head shows acute to subacute over the left frontal parietal region. Acute to subacute stroke (seems more subacute) over the left frontal parietal region (has right hemiparesis). Stroke seems more embolic especially with a history of A-fib and anticoagulation held. No IV thrombolytic since outside window and risk outweight benefit. Last normal was yesterday at 3pm and his deficit was noted today in morning. Recent fall with back pain and it seems that the patient has L2-L3 Fracture s/p revision T10 to Pelvis posterior lateral instrument fusion with hardware removal POD#1 Intubated on a ventilator History of atrial fibrillation status post cardioversion and was on Xarelto and the Xarelto was held for the last 48 hours History of cervical myelopathy status post C2-T2 decompression and fusion Recent recent L2 to pelvis decompression and fusion of bilateral open SI joint on 05/19/2024 History of Systolic Heart failure and recent 2D echo on 06/08/24 has EF 25-30% Diabetes mellitus Chronic hypertension History of hyperlipidemia History of obstructive sleep apnea Former tobacco use Plan: I patient is on heparin drip for the A-fib. I will obtain a repeat CT of the head tomorrow and if there is nohemorrhagic conversion or any worsening of the stroke then we can resume Xarelto tomorrow from a neurologic perspective and can stop heparin drip. Continue neurochecks Cardiac monitoring PT OT are consulted Cardiology team is on board Will defer the rest of the medical management to primary and other specialists DVT prophylaxis: On heparin drip Plan discussed with the orthopedic team and ICU nursing staff. Time with Patient: Less than 30
[2024-06-11] MEDS: METOPROLOL TARTRATE 50 MG TAB PO SCH (16:40)
[2024-06-11 17:50] LABS: Glucose,Whole Blood 112 mg/dL (70-110)
--- NOTE | 2024-06-11 21:54 | XR ---
EXAMINATION TYPE: XR chest 1V portable DATE OF EXAM: 06/11/2024 8:54 PM CLINICAL INDICATION:Male, 58 years old with history of tube placement. COMPARISON: Chest radiographs from the same day, 06/10/2024 TECHNIQUE: XR chest 1V portable Frontal view of the chest. FINDINGS: Lungs/Pleura: Similar aeration of the bilateral lungs. Portion of the right lower hemithorax and sulc us are not included in the [id number]. No evidence for pneumothorax on the visualized portions of the exam. Pulmonary vascularity: Mild pulmonary vascular congestion. Heart/mediastinum: Cardiac silhouette is enlarged but stable. Musculoskeletal: No acute osseous pathology. Surgical changes of the cervical and thoracic spine. Other findings: None Lines/Tubes: Stable appearance of the endotracheal tube which is seen terminating above the shashank. Enteric tube i s seen below the diaphragm with the distal tip projecting beyond the [id number]. IMPRESSION: 1. Stable endotracheal tube with enteric tube again seen projecting beyond the field of view below th e diaphragm. 2. Stable cardiomegaly with similar aeration of the bilateral lungs as visualized.
[2024-06-12 00:12] LABS: Glucose,Whole Blood 113 mg/dL (70-110)
[2024-06-12 05:09] LABS: Anisocytosis Slight; HCT 35.3 % (39.0-53.0); HGB 10.8 gm/dL (13.0-17.5); Hypochromasia Marked; MCHC 30.7 g/dL (31.0-37.0); MCV 91.1 fL (80.0-100.0); Mean Platelet Volume 7.3; Platelet Count 353 k/uL (150-450); Poikilocytosis Slight; RBC 3.87 m/uL (4.30-5.90); RDW 16.6 % (11.5-15.5)
[2024-06-12 05:23] LABS: African American GFR (CKD) >90 (>60 ml/min/1.73 sqM); Anion Gap 3 mmol/L; Blood Urea Nitrogen 18 mg/dL (9-20); Calcium 8.4 mg/dL (8.4-10.2); Carbon Dioxide 27 mmol/L (22-30); Chloride 107 mmol/L (98-107); Glucose 108 mg/dL (74-99); Magnesium 2.2 mg/dL (1.6-2.3); Non-African American GFR(CKD) >90 (>60 ml/min/1.73 sqM); Potassium 3.8 mmol/L (3.5-5.1); Sodium 137 mmol/L (137-145)
[2024-06-12 05:42] LABS: ABG Base Excess 6.3 mmol/L; ABG HCO3 30 mmol/L (21-25); ABG PCO2 39 mmHg (35-45); ABG PO2 71 mmHg (83-108); ABG TCO2 31 mmol/L (19-24); Allen Test Performed? No
[2024-06-12 05:43] LABS: ABG Oxygen Saturation 95.5 % (94-97)
[2024-06-12] MEDS: POTASSIUM BICARBONATE/CIT AC 20 MEQ TABLET.EFF NG-TUBE SCH (05:49)
[2024-06-12 06:10] LABS: Glucose,Whole Blood 132 mg/dL (70-110)
--- NOTE | 2024-06-12 07:22 | XR ---
EXAMINATION TYPE: XR chest 1V portable DATE OF EXAM: 06/12/2024 Comparison: 06/11/2024 Clinical History: 58-year-old male Tube placement Findings: ACDF hardware and posterior cervicothoracic fusion noted. ET tube satisfactory. Unable to visualize t he NG tube beyond the mid to lower thoracic chest level. Orbital exam further limited by semiupright positioning and pronounced rightward patient rotation. Heart appears mildly enlarged. Mild increased interstitial density is similar. Trace blunting of the left costophrenic angle. Impression: 1. Portable exam further limited by patient body habitus and patient rotation. 2. Unable to visualize the NG tube beyond the mid to lower third chest level. 3. Cardiomegaly and ongoing pulmonary vascular congestion. There may be a trace left effusion.
--- NOTE | 2024-06-12 07:33 | CT ---
EXAMINATION TYPE: CT brain wo con DATE OF EXAM: 06/12/2024 COMPARISON: 06/10/2024 HISTORY: 58-year-old male Follow up stroke symptoms TECHNIQUE: Examination was done in axial plane without intravenous contrast. Coronal and sagittal r econstructions performed. CT DLP: 1168.5 mGycm Automated exposure control for dose reduction was used. FINDINGS: Interval development of cortical and subcortical hypodensity involving the left bilateral frontoparie niranjan regions. Ongoing sulcal effacement here. Minimal 4 mm of midline shift slightly increased from 3 mm. No herniation or hydrocephalus. No acute intracranial hemorrhage or extra-axial fluid collection seen. The patient is intubated with NG tube. Mild mucosal thickening right sphenoid sinus. Leftward nasal s eptal deviation. Orbits and globes are intact. Mastoid air cells well pneumatized. IMPRESSION: 1. Ongoing evolution of the acute to subacute infarct lateral left frontal and parietal regions with greater degree of hypodensity. Similar sulcal effacement. Minimal rightward midline shift of 4 mm angelito eugenie 3 mm measured on the 06/10/2024 exam. 2. No hemorrhagic transformation.
[2024-06-12] MEDS ORDERED: VANCOMYCIN IV PER PHARMACY 1 EACH MISC MISCELLANE PRN (07:39)
--- NOTE | 2024-06-12 09:10 | P.PN ---
Subjective Progress Note Date: 06/12/24 Principal diagnosis: Hardware failure lumbar spine L2-L3 fracture History of recent Q2wlhjxy decompression and fusion and open bilateral SI joint fusion Patient seen and examined this morning in the ICU. Patient remains on mechanical ventilation. VSS. Surgical incision to the thoracolumbar spine, Hemovac is present and patent with 50 mL output overnight. Maintain hemovac at half compression. Respiratory therapist stated this morning they continue to attempt sedation holidays to attempt to wake patient and he is unable to tolerate with increased secretions and agitation. Patient is receiving Vital HP nutrition. Zavala cath remains patent. Continue with Neuro checks and to turn and reposition patient every 2hrs. Objective - Vital Signs Vital signs: Vital Signs Temp 98.1 F 06/12/24 04:00 Pulse 93 06/12/24 07:00 Resp 4 L 06/12/24 07:00 BP 129/78 06/12/24 07:00 Pulse Ox 95 06/12/24 07:00 FiO2 40 06/12/24 04:00 Intake & Output 06/11/24 06/12/24 06/12/24 18:59 06:59 18:59 Intake Total 1085.332 921.331 47 Output Total 1120 919 45 Balance -34.668 2.331 2 Intake: IV 110 120 10 kvo 110 120 10 Intake, IV Titration 635.332 178.331 Amount Heparin Sod,Pork in 0.45% 248.484 78.331 NaCl 25,000 unit In 0.45 % NaCl 1 250ml.bag @ 8.65 UNITS/KG/HR 9.999 mls/hr IV .Q24H [facility] Rx#: [id number] Norepinephrine 4 mg In 131.602 Sodium Chloride 0.9% 250 ml @ 0.03 MCG/KG/MIN 13. 087 mls/hr IV .[id number] [facility] Rx#:[id number] propofoL 1,000 mg In 255.246 100 Empty Bag 1 bag @ 15 MCG/ KG/MIN 10.305 mls/hr IV . Q9H43M [facility] Rx#:[id number] Tube Feeding 220 413 37 Other 120 210 Output: Drainage 150 Right Back 150 Urine 1120 769 45 Other: Voiding Method Indwelling Catheter Indwelling Catheter ABP, PAP, CO, CI - Last Documented Arterial Blood Pressure 122/63 - Exam Physical Examination General: The patient is on mechanical ventilation, in no acute distress Skin: Skin is warm and dry with no obvious rashes or lesions. Surgical incision to the lumbar spine, Hemovac is present and patent with 50 mL output overnight. Maintain hemovac at half compression. - Labs CBC & Chem 7: 06/12/24 04:45 06/12/24 04:45 Labs: Abnormal Lab Results - Last 24 Hours (Table) 06/11/24 06/11/24 06/11/24 Range/Units 04:23 09:35 11:32 RBC (4.30-5.90) m/uL Hgb (13.0-17.5) gm/dL Hct (39.0-53.0) % MCHC (31.0-37.0) g/dL RDW (11.5-15.5) % APTT 36.6 H (22.0-30.0) sec ABG pH (7.35-7.45) ABG pO2 (83-108) mmHg ABG HCO3 (21-25) mmol/L ABG Total CO2 (19-24) mmol/L ABG O2 Saturation (94-97) % Creatinine (0.66-1.25) mg/dL Glucose (74-99) mg/dL POC Glucose (mg/dL) 120 H (70-110) mg/dL Hemoglobin A1c 6.6 H (<=6.0) % 06/11/24 06/11/24 06/11/24 Range/Units 12:06 16:08 17:47 RBC (4.30-5.90) m/uL Hgb (13.0-17.5) gm/dL Hct (39.0-53.0) % MCHC (31.0-37.0) g/dL RDW (11.5-15.5) % APTT 38.0 H (22.0-30.0) sec ABG pH 7.46 H (7.35-7.45) ABG pO2 (83-108) mmHg ABG HCO3 28 H (21-25) mmol/L ABG Total CO2 29 H (19-24) mmol/L ABG O2 Saturation 97.3 H (94-97) % Creatinine (0.66-1.25) mg/dL Glucose (74-99) mg/dL POC Glucose (mg/dL) 112 H (70-110) mg/dL Hemoglobin A1c (<=6.0) % 06/11/24 06/12/24 06/12/24 Range/Units 21:30 00:11 04:45 RBC 3.87 L (4.30-5.90) m/uL Hgb 10.8 L (13.0-17.5) gm/dL Hct 35.3 L (39.0-53.0) % MCHC 30.7 L (31.0-37.0) g/dL RDW 16.6 H (11.5-15.5) % APTT 40.3 H (22.0-30.0) sec ABG pH (7.35-7.45) ABG pO2 (83-108) mmHg ABG HCO3 (21-25) mmol/L ABG Total CO2 (19-24) mmol/L ABG O2 Saturation (94-97) % Creatinine (0.66-1.25) mg/dL Glucose (74-99) mg/dL POC Glucose (mg/dL) 113 H (70-110) mg/dL Hemoglobin A1c (<=6.0) % 06/12/24 06/12/24 06/12/24 Range/Units 04:45 04:45 05:16 RBC (4.30-5.90) m/uL Hgb (13.0-17.5) gm/dL Hct (39.0-53.0) % MCHC (31.0-37.0) g/dL RDW (11.5-15.5) % APTT 48.7 H (22.0-30.0) sec ABG pH 7.50 H (7.35-7.45) ABG pO2 71 L (83-108) mmHg ABG HCO3 30 H (21-25) mmol/L ABG Total CO2 31 H (19-24) mmol/L ABG O2 Saturation (94-97) % Creatinine 0.35 L (0.66-1.25) mg/dL Glucose 108 H (74-99) mg/dL POC Glucose (mg/dL) (70-110) mg/dL Hemoglobin A1c (<=6.0) % 06/12/24 Range/Units 06:09 RBC (4.30-5.90) m/uL Hgb (13.0-17.5) gm/dL Hct (39.0-53.0) % MCHC (31.0-37.0) g/dL RDW (11.5-15.5) % APTT (22.0-30.0) sec ABG pH (7.35-7.45) ABG pO2 (83-108) mmHg ABG HCO3 (21-25) mmol/L ABG Total CO2 (19-24) mmol/L ABG O2 Saturation (94-97) % Creatinine (0.66-1.25) mg/dL Glucose (74-99) mg/dL POC Glucose (mg/dL) 132 H (70-110) mg/dL Hemoglobin A1c (<=6.0) % Microbiology - Last 24 Hours (Table) 06/09/24 18:00 Gram Stain - Preliminary Other - Other Wound Culture - Preliminary Escherichia coli 06/09/24 17:52 Gram Stain - Preliminary Other - Other Wound Culture - Preliminary Escherichia coli Assessment and Plan Assessment: Postop day 3: Revision H8jsahne decompression and fusion with T8 kyphoplasty Acute/subacute stroke Multiple complex medical comorbidities Plan: -Appreciate food consultant and team management. -Activity: Bedrest at this time, encourage increase in activity when patient is exubated and medically stable. Turn and reposition patient q2hrs -Neuro checks every 2 hours -Pain control: Adequate at this time -Meds: reviewed -GI ppx: senna -DVT PPX: TEDs, SCDs, Heparin -Hygiene: Maintain dressing clean and dry. Meticulous cleaning after BMs away from the incision site -Drain Management: Continue to document output every shift. Maintain hemovac at half compression -Encourage IS 10x/hr *I reviewed and discussed this case with my attending Dr. Jeffrey, whom has reviewed this chart and films and is in agreement with assessment and plan of care as outlined above. I have personally seen and examined the patient, performed the documentation and the assessment and plan as written. Number of minutes spent on the visit: 20m.
--- NOTE | 2024-06-12 09:38 | P.PN ---
Subjective Progress Note Date: 06/12/24 The patient is a 58-year-old male with multiple comorbid conditions and follows in the office with Dr. Menard. Cardiology was consulted for preoperative clearance as the patient sustained a mechanical fall and suffered a lumbar spine fracture. Yesterday the patient underwent open treatment of L1-L2 fracture with revision of T10 through pelvis decompression and fusion with stabilization. The patient did have intraoperative blood loss at approximately 800 mL. He remains in the ICU on ventilator, with minimal vasopressor support. over the last 24 hours the patient shows no sign of improvement after suffering a stroke. He continues to not move his right side and there is difficulty weaning from the ventilator.nursing staff states he has been successfully weaned off vasopressors. GENERAL: Ill-appearing, well-nourished and in no acute distress. Sedated on ventilator NECK: Supple without JVD or thyromegaly. LUNGS: Breath sounds diminished to auscultation bilaterally. Respiration equal and unlabored. No wheezes, rales or rhonchi. HEART: Irregular rate and rhythm without murmurs, rubs or gallops. S1 and S2 heard. EXTREMITIES: Normal range of motion, mild edema. No clubbing or cyanosis. Peripheral pulses intact and strong. TELEMETRY: Rate controlled atrial fibrillation with heart rates in the 90-low 100s IMPRESSION: Status post mechanical fall Recent revision of L2 to pelvis posterior lateral decompression and fusion with bilateral open SI joint fusions on 05/19/2024 Hardware failure of L2-L3, status post L1-L2 revision and T10 through pelvis decompression and fusion Persistent atrial fibrillation Hypertension Hyperlipidemia Diabetes Cardiomyopathy, unspecified type, EF 25 to 30% PLAN: Increase metoprolol to 100 mg twice daily Continue all other cardiac medications Transition back to oral anticoagulation when extubated Further recommendations to be based upon clinical course I am dictating on behalf of Dr Michele Silveira's history/physical and assessment/plan. Objective - Vital Signs Vital signs: Vital Signs Temp 98.1 F 06/12/24 04:00 Pulse 108 H 06/12/24 08:13 Resp 24 06/12/24 08:13 BP 129/78 06/12/24 07:00 Pulse Ox 95 06/12/24 07:00 FiO2 40 06/12/24 08:07 Intake & Output 06/11/24 06/12/24 06/12/24 18:59 06:59 18:59 Intake Total 1085.332 921.331 47 Output Total 1120 919 45 Balance -34.668 2.331 2 Intake: IV 110 120 10 kvo 110 120 10 Intake, IV Titration 635.332 178.331 Amount Heparin Sod,Pork in 0.45% 248.484 78.331 NaCl 25,000 unit In 0.45 % NaCl 1 250ml.bag @ 8.65 UNITS/KG/HR 9.999 mls/hr IV .Q24H [facility] Rx#: [id number] Norepinephrine 4 mg In 131.602 Sodium Chloride 0.9% 250 ml @ 0.03 MCG/KG/MIN 13. 087 mls/hr IV .[id number] [facility] Rx#:[id number] propofoL 1,000 mg In 255.246 100 Empty Bag 1 bag @ 15 MCG/ KG/MIN 10.305 mls/hr IV . Q9H43M [facility] Rx#:[id number] Tube Feeding 220 413 37 Other 120 210 Output: Drainage 150 Right Back 150 Urine 1120 769 45 Other: Voiding Method Indwelling Catheter Indwelling Catheter ABP, PAP, CO, CI - Last Documented Arterial Blood Pressure 122/63 - Labs CBC & Chem 7: 06/12/24 04:45 06/12/24 04:45 Labs: Abnormal Lab Results - Last 24 Hours (Table) 06/11/24 06/11/24 06/11/24 Range/Units 09:35 11:32 12:06 RBC (4.30-5.90) m/uL Hgb (13.0-17.5) gm/dL Hct (39.0-53.0) % MCHC (31.0-37.0) g/dL RDW (11.5-15.5) % APTT 36.6 H (22.0-30.0) sec ABG pH 7.46 H (7.35-7.45) ABG pO2 (83-108) mmHg ABG HCO3 28 H (21-25) mmol/L ABG Total CO2 29 H (19-24) mmol/L ABG O2 Saturation 97.3 H (94-97) % Creatinine (0.66-1.25) mg/dL Glucose (74-99) mg/dL POC Glucose (mg/dL) 120 H (70-110) mg/dL 06/11/24 06/11/24 06/11/24 Range/Units 16:08 17:47 21:30 RBC (4.30-5.90) m/uL Hgb (13.0-17.5) gm/dL Hct (39.0-53.0) % MCHC (31.0-37.0) g/dL RDW (11.5-15.5) % APTT 38.0 H 40.3 H (22.0-30.0) sec ABG pH (7.35-7.45) ABG pO2 (83-108) mmHg ABG HCO3 (21-25) mmol/L ABG Total CO2 (19-24) mmol/L ABG O2 Saturation (94-97) % Creatinine (0.66-1.25) mg/dL Glucose (74-99) mg/dL POC Glucose (mg/dL) 112 H (70-110) mg/dL 06/12/24 06/12/24 06/12/24 Range/Units 00:11 04:45 04:45 RBC 3.87 L (4.30-5.90) m/uL Hgb 10.8 L (13.0-17.5) gm/dL Hct 35.3 L (39.0-53.0) % MCHC 30.7 L (31.0-37.0) g/dL RDW 16.6 H (11.5-15.5) % APTT (22.0-30.0) sec ABG pH (7.35-7.45) ABG pO2 (83-108) mmHg ABG HCO3 (21-25) mmol/L ABG Total CO2 (19-24) mmol/L ABG O2 Saturation (94-97) % Creatinine 0.35 L (0.66-1.25) mg/dL Glucose 108 H (74-99) mg/dL POC Glucose (mg/dL) 113 H (70-110) mg/dL 06/12/24 06/12/24 06/12/24 Range/Units 04:45 05:16 06:09 RBC (4.30-5.90) m/uL Hgb (13.0-17.5) gm/dL Hct (39.0-53.0) % MCHC (31.0-37.0) g/dL RDW (11.5-15.5) % APTT 48.7 H (22.0-30.0) sec ABG pH 7.50 H (7.35-7.45) ABG pO2 71 L (83-108) mmHg ABG HCO3 30 H (21-25) mmol/L ABG Total CO2 31 H (19-24) mmol/L ABG O2 Saturation (94-97) % Creatinine (0.66-1.25) mg/dL Glucose (74-99) mg/dL POC Glucose (mg/dL) 132 H (70-110) mg/dL Microbiology - Last 24 Hours (Table) 06/09/24 18:00 Gram Stain - Preliminary Other - Other Wound Culture - Preliminary Escherichia coli 06/09/24 17:52 Gram Stain - Preliminary Other - Other Wound Culture - Preliminary Escherichia coli
[2024-06-12] MEDS: GENTAMICIN 600 MG in SODIUM CHLORIDE 0.9% 100 ML IVPB SCH (09:57)
[2024-06-12] MEDS: CHOLECALCIFEROL 125 MCG (5000 IU) TABLET PO SCH (09:58)
[2024-06-12] MEDS: ASCORBIC ACID 500 MG TAB PO SCH (09:58)
[2024-06-12] MEDS: VANCOMYCIN 1,750 MG in SODIUM CHLORIDE 0.9% 500 ML 500 ML IVPB SCH (10:00)
[2024-06-12] MEDS: METOPROLOL TARTRATE 50 MG TAB PO SCH (10:01)
--- NOTE | 2024-06-12 11:18 | P.PN ---
Subjective Progress Note Date: 06/12/24 I am following-up with patient and per the nurse he is about the same. His IV Propofol has been weaned down to 25mcg/kg/min and he continues to be moving the left side spontaneously and opening his eyes. No movement on the right side. Objective - Vital Signs Vital signs: Vital Signs Temp 98.1 F 06/12/24 04:00 Pulse 94 06/12/24 11:01 Resp 26 H 06/12/24 11:01 BP 129/78 06/12/24 07:00 Pulse Ox 95 06/12/24 07:00 FiO2 40 06/12/24 10:58 Intake & Output 06/11/24 06/12/24 06/12/24 18:59 06:59 18:59 Intake Total 1085.332 921.331 130.585 Output Total 1120 919 45 Balance -34.668 2.331 85.585 Intake: IV 110 120 10 kvo 110 120 10 Intake, IV Titration 635.332 178.331 83.585 Amount Heparin Sod,Pork in 0.45% 248.484 78.331 NaCl 25,000 unit In 0.45 % NaCl 1 250ml.bag @ 8.65 UNITS/KG/HR 9.999 mls/hr IV .Q24H FROILAN Rx#: [id number] Norepinephrine 4 mg In 131.602 Sodium Chloride 0.9% 250 ml @ 0.03 MCG/KG/MIN 13. 087 mls/hr IV .[id number] FROILAN Rx#:[id number] propofoL 1,000 mg In 255.246 100 83.585 Empty Bag 1 bag @ 15 MCG/ KG/MIN 10.305 mls/hr IV . Q9H43M FROILAN Rx#:[id number] Tube Feeding 220 413 37 Other 120 210 Output: Drainage 150 Right Back 150 Urine 1120 769 45 Other: Voiding Method Indwelling Catheter Indwelling Catheter ABP, PAP, CO, CI - Last Documented Arterial Blood Pressure 122/63 - Exam General: Lying in bed and does not appear in acute distress. Respiratory: Intubated on ventilator. Neuro: Limited. Patient is on IV Propofol 25mcg/kg/min. Is drowsy but is awakeable to voice. Is not following commands. Opens eyes spontaneously. Pupils are round, equal, 3mm and reactive to light. Motor: Strength is limited. Is moving the left side spontaneously. No movement on the right side. Some of the other workup during this hospital visit consisted of: Lipid panel is triglyceride 68, cholesterol is 56, LDL is 18 and HDL is 23 Hemoglobin A1c 6.6. The echo on 06/08/2024 is reported as ejection fraction of [address] head is reported as finding of acute/subacute CVA involving the left frontal parietal region. CTA head and neck is read as no significant diameter reduction to account for the patient's symptoms. Area of hypoattenuation as described on the prior CT brain left frontal parietal region compatible with a finding of acute/subacute CVA. Repeat CT head today in morning: Ongoing evolution of acute to subacute infarct over latral left frontal and parietal region with greater degree of hypodensity. Similar sulcal effacement. Minimal righward midline shift of 4mm vs 3mm measure on 06/10/24. No hemorrhagic transformation. - Labs CBC & Chem 7: 06/12/24 04:45 06/12/24 04:45 Labs: Abnormal Lab Results - Last 24 Hours (Table) 06/11/24 06/11/24 06/11/24 Range/Units 11:32 12:06 16:08 RBC (4.30-5.90) m/uL Hgb (13.0-17.5) gm/dL Hct (39.0-53.0) % MCHC (31.0-37.0) g/dL RDW (11.5-15.5) % APTT 38.0 H (22.0-30.0) sec ABG pH 7.46 H (7.35-7.45) ABG pO2 (83-108) mmHg ABG HCO3 28 H (21-25) mmol/L ABG Total CO2 29 H (19-24) mmol/L ABG O2 Saturation 97.3 H (94-97) % Creatinine (0.66-1.25) mg/dL Glucose (74-99) mg/dL POC Glucose (mg/dL) 120 H (70-110) mg/dL 06/11/24 06/11/24 06/12/24 Range/Units 17:47 21:30 00:11 RBC (4.30-5.90) m/uL Hgb (13.0-17.5) gm/dL Hct (39.0-53.0) % MCHC (31.0-37.0) g/dL RDW (11.5-15.5) % APTT 40.3 H (22.0-30.0) sec ABG pH (7.35-7.45) ABG pO2 (83-108) mmHg ABG HCO3 (21-25) mmol/L ABG Total CO2 (19-24) mmol/L ABG O2 Saturation (94-97) % Creatinine (0.66-1.25) mg/dL Glucose (74-99) mg/dL POC Glucose (mg/dL) 112 H 113 H (70-110) mg/dL 06/12/24 06/12/24 06/12/24 Range/Units 04:45 04:45 04:45 RBC 3.87 L (4.30-5.90) m/uL Hgb 10.8 L (13.0-17.5) gm/dL Hct 35.3 L (39.0-53.0) % MCHC 30.7 L (31.0-37.0) g/dL RDW 16.6 H (11.5-15.5) % APTT 48.7 H (22.0-30.0) sec ABG pH (7.35-7.45) ABG pO2 (83-108) mmHg ABG HCO3 (21-25) mmol/L ABG Total CO2 (19-24) mmol/L ABG O2 Saturation (94-97) % Creatinine 0.35 L (0.66-1.25) mg/dL Glucose 108 H (74-99) mg/dL POC Glucose (mg/dL) (70-110) mg/dL 06/12/24 06/12/24 Range/Units 05:16 06:09 RBC (4.30-5.90) m/uL Hgb (13.0-17.5) gm/dL Hct (39.0-53.0) % MCHC (31.0-37.0) g/dL RDW (11.5-15.5) % APTT (22.0-30.0) sec ABG pH 7.50 H (7.35-7.45) ABG pO2 71 L (83-108) mmHg ABG HCO3 30 H (21-25) mmol/L ABG Total CO2 31 H (19-24) mmol/L ABG O2 Saturation (94-97) % Creatinine (0.66-1.25) mg/dL Glucose (74-99) mg/dL POC Glucose (mg/dL) 132 H (70-110) mg/dL Microbiology - Last 24 Hours (Table) 06/09/24 18:00 Gram Stain - Preliminary Other - Other Wound Culture - Preliminary Escherichia coli 06/09/24 17:52 Gram Stain - Preliminary Other - Other Wound Culture - Preliminary Escherichia coli Assessment and Plan Assessment: Is a 58-year-old gentleman with history of atrial fibrillation status post cardioversion on Xarelto, diabetes mellitus, heart failure, cervical myelopathy, back pain and had recent L2 to pelvis decompression and fusion of bilateral open SI joint on 05/19/2024 who had a recent fall with back pain. Patient yesterday had L2-L3 fracture and has hardware failure of the thoracic spine to pelvis. 3 the patient had L1-L2 and L3 revision T10 to pelvis posterior lateral instrumented fusion with hardware removal. His Xarelto was held 48 hours and it seems last dose was on 06/08/2024 per the nurse. Today when the sedation was held the patient was not moving the right side and CT of the head shows acute to subacute over the left frontal parietal region. Acute to subacute stroke (seems more subacute) over the left frontal parietal region (from limited examination has right hemiparesis on examination, not following commands). Stroke seems more embolic especially with a history of A- fib and anticoagulation held for 48 hours because of cervical surgery. On repeat CT head has evolution of the stroke over the left fronto/parietal region with mild midline shift and no hemorrhagic conversion. Recent fall with back pain and it seems that the patient has L2-L3 Fracture s/p revision T10 to Pelvis posterior lateral instrument fusion with hardware removal POD#3 Intubated on a ventilator History of atrial fibrillation status post cardioversion and was on Xarelto and the Xarelto was held for the last 48 hours but currently on heparin drip History of cervical myelopathy status post C2-T2 decompression and fusion Recent recent L2 to pelvis decompression and fusion of bilateral open SI joint on 05/19/2024 History of Systolic Heart failure and recent 2D echo on 06/08/24 has EF 25-30% Diabetes mellitus Chronic hypertension History of hyperlipidemia History of obstructive sleep apnea Former tobacco use Plan: I patient is on heparin drip for the A-fib. Recommend to continue heparin drip and if by this Saturday no hemorrhagic conversion and CT head remains stable then can continue to resumen Xarelto. Is on Lipitor 40mg qhs which is sufficient for secondary stroke prophylaxis. Will get repeat limited 2D echo since the echo he had was prior to stroke and to rule out any thrombus not seen on initial echo especially since his anticoagulation was held. Continue neurochecks Cardiac monitoring PT OT are consulted Cardiology team is on board Will defer the rest of the medical management to primary and other specialists DVT prophylaxis: On heparin drip Condition is very guarded. Plan discussed with ICU attending. I attempted to contact his ex- who visits him in the hospital but went to voice message. I was notified by ICU nursing staff that he has siblings and mother but no family members seen and unsure of family dynamics. Time with Patient: Less than 30
[2024-06-12] MEDS: PANTOPRAZOLE 40 MG/10 ML VIAL IVP SCH (11:42)
[2024-06-12 13:05] LABS: Glucose,Whole Blood 121 mg/dL (70-110)
[2024-06-12] MEDS: ERTAPENEM 1 GM in SODIUM CHLORIDE 0.9% 50 ML IVPB SCH (15:55)
--- NOTE | 2024-06-12 16:56 | P.PN ---
Progress Note - Text Progress Note Date: 06/12/24 Pt s/e. Nursing at bedside. VSS at this time. He is vented and lightly sedated. He is agitated but not following commands. He opens his eyes to his name, and looks around, but seemingly without purpose. He did open his eyes and look to the foot of the bed where I was speaking with nursing as he was able to localize this. He grimaces and has motor to his facial muscles bilateral and there is no visible asymetry. He only moves his LUE and LLE at this time however. He does not move his RUE or RLE but when these extremities are touched or moved he does look to the right. He has hyperreflexia still to the UE and LE b/l, but he has had this in the past due to his cervical myelopathy and this does not seem to have changed. He is breathing on his own and initiating on his own. His abdomen is soft and NTTP. Dressing is CDI to the thoracolumbar spine with drain output around 100 currently. Nursing states his ex- has been by a couple of times to see him. He has no other contacts listed. He did express to me in pre-op before surgery that he did not want her notified after surgery as there were some social issues, but he did not necessarily forbid her presence. CT and CT angio as well as ECHO are reviewed. There is frontoparietal signal changes on the left which marlo explain his UE and LE sx. This seems to be evolving. Neuro notes reviewed as well. Embolic CVA is high on differential due to hx of afib on anticoag. CT angio however, shows no areas of hypoperfusion or vessel narrowing to account for his evolving area of signal changes. IN new CT, there was slight increase in midline shift, but no conversion noted from embolic looking CVA to hemorrhagic. ECHO read is pending, pt has a hx of EF around 30%. ID consulted for positive cultures, abx changed per their recs. Cont with supportive care, weaning trials, neuro checks, anticoagulation. Will change dressing Saturday. Drain management and recording. Cont with Ice and pain control as needed. Medical management at this time.
--- NOTE | 2024-06-12 17:42 | P.PN ---
Subjective Progress Note Date: 06/12/24 Principal diagnosis: Postop day 3: Revision [id number] decompression and fusion with T8 kyphoplastyRequiring vent support acute blood loss anemia requiring transfusion of 5. Packed RBC 1 pack platelets and FFP and respiratory failure Acute/subacute stroke acute on chronic systolic heart failure status post mechanical fall with L2 compression fracture and fracture of transverse process L1-L2 with hardware displacement, Back pain related to above continue pain medications Persistent chronic atrial fibrillation type 2 diabetes mellitus hyperglycemia obesity hypoventilation syndrome and sleep disorder breathing and sleep apnea History of smoking and nicotine use Prior history of C2-T2 decompression fusion Objective - Vital Signs Vital signs: Vital Signs Temp 99.2 F 06/12/24 12:00 Pulse 107 H 06/12/24 15:32 Resp 30 H 06/12/24 15:19 BP 120/106 06/12/24 12:00 Pulse Ox 96 06/12/24 15:00 FiO2 40 06/12/24 16:31 Intake & Output 06/11/24 06/12/24 06/12/24 18:59 06:59 18:59 Intake Total 8721.317 0862.000 584.445 Output Total 1120 919 900 Balance -34.668 174.000 -315.555 Weight 114.8 kg Intake: IV 110 120 90 kvo 110 120 90 Intake, IV Titration 635.332 350.000 161.445 Amount Heparin Sod,Pork in 0.45% 248.484 250.000 NaCl 25,000 unit In 0.45 % NaCl 1 250ml.bag @ 8.65 UNITS/KG/HR 9.999 mls/hr IV .Q24H [facility] Rx#: [id number] Norepinephrine 4 mg In 131.602 Sodium Chloride 0.9% 250 ml @ 0.03 MCG/KG/MIN 13. 087 mls/hr IV .[id number] [facility] Rx#:[id number] propofoL 1,000 mg In 255.246 100 161.445 Empty Bag 1 bag @ 15 MCG/ KG/MIN 10.305 mls/hr IV . Q9H43M [facility] Rx#:[id number] Tube Feeding 220 413 333 Other 120 210 Output: Drainage 150 Right Back 150 Urine 1120 769 900 Other: Voiding Method Indwelling Catheter Indwelling Catheter Indwelling Catheter ABP, PAP, CO, CI - Last Documented Arterial Blood Pressure 145/76 - Exam sedated with propofol - Constitutional General appearance: Present: no acute distress - EENT Eyes: Present: PERRLA Ears: bilateral: normal - Respiratory Respiratory: bilateral: CTA - Cardiovascular Rhythm: irregularly irregular Heart sounds: normal: S1, S2 - Gastrointestinal General gastrointestinal: Present: soft - Integumentary Integumentary: Present: normal turgor - Labs CBC & Chem 7: 06/12/24 04:45 06/12/24 04:45 Labs: Abnormal Lab Results - Last 24 Hours (Table) 06/11/24 06/11/24 06/12/24 Range/Units 17:47 21:30 00:11 RBC (4.30-5.90) m/uL Hgb (13.0-17.5) gm/dL Hct (39.0-53.0) % MCHC (31.0-37.0) g/dL RDW (11.5-15.5) % APTT 40.3 H (22.0-30.0) sec ABG pH (7.35-7.45) ABG pO2 (83-108) mmHg ABG HCO3 (21-25) mmol/L ABG Total CO2 (19-24) mmol/L Creatinine (0.66-1.25) mg/dL Glucose (74-99) mg/dL POC Glucose (mg/dL) 112 H 113 H (70-110) mg/dL C-Reactive Protein (<1.0) mg/dL 06/12/24 06/12/24 06/12/24 Range/Units 04:45 04:45 04:45 RBC 3.87 L (4.30-5.90) m/uL Hgb 10.8 L (13.0-17.5) gm/dL Hct 35.3 L (39.0-53.0) % MCHC 30.7 L (31.0-37.0) g/dL RDW 16.6 H (11.5-15.5) % APTT 48.7 H (22.0-30.0) sec ABG pH (7.35-7.45) ABG pO2 (83-108) mmHg ABG HCO3 (21-25) mmol/L ABG Total CO2 (19-24) mmol/L Creatinine 0.35 L (0.66-1.25) mg/dL Glucose 108 H (74-99) mg/dL POC Glucose (mg/dL) (70-110) mg/dL C-Reactive Protein (<1.0) mg/dL 06/12/24 06/12/24 06/12/24 Range/Units 04:45 05:16 06:09 RBC (4.30-5.90) m/uL Hgb (13.0-17.5) gm/dL Hct (39.0-53.0) % MCHC (31.0-37.0) g/dL RDW (11.5-15.5) % APTT (22.0-30.0) sec ABG pH 7.50 H (7.35-7.45) ABG pO2 71 L (83-108) mmHg ABG HCO3 30 H (21-25) mmol/L ABG Total CO2 31 H (19-24) mmol/L Creatinine (0.66-1.25) mg/dL Glucose (74-99) mg/dL POC Glucose (mg/dL) 132 H (70-110) mg/dL C-Reactive Protein 19.3 H (<1.0) mg/dL 06/12/24 Range/Units 13:04 RBC (4.30-5.90) m/uL Hgb (13.0-17.5) gm/dL Hct (39.0-53.0) % MCHC (31.0-37.0) g/dL RDW (11.5-15.5) % APTT (22.0-30.0) sec ABG pH (7.35-7.45) ABG pO2 (83-108) mmHg ABG HCO3 (21-25) mmol/L ABG Total CO2 (19-24) mmol/L Creatinine (0.66-1.25) mg/dL Glucose (74-99) mg/dL POC Glucose (mg/dL) 121 H (70-110) mg/dL C-Reactive Protein (<1.0) mg/dL Microbiology - Last 24 Hours (Table) 06/09/24 17:52 Anaerobic Culture - Preliminary Other - Other 06/09/24 18:00 Anaerobic Culture - Preliminary Other - Other 06/09/24 18:00 Gram Stain - Final Other - Other Wound Culture - Final Escherichia coli 06/09/24 17:52 Gram Stain - Final Other - Other Wound Culture - Final Escherichia coli - Imaging and Cardiology Chest x-ray: report reviewed, image reviewed Assessment and Plan Assessment: Postop day 3: Revision [id number] decompression and fusion with T8 kyphoplastyRequiring vent support acute blood loss anemia requiring transfusion of 5. Packed RBC 1 pack platelets and FFP and respiratory failure Acute/subacute stroke acute on chronic systolic heart failure status post mechanical fall with L2 compression fracture and fracture of transverse process L1-L2 with hardware displacement, Back pain related to above continue pain medications Persistent chronic atrial fibrillation type 2 diabetes mellitus hyperglycemia obesity hypoventilation syndrome and sleep disorder breathing and sleep apnea History of smoking and nicotine use Prior history of C2-T2 decompression fusion Plan: continue supportive care, will follow once extubated and transferred out of the ICU Time with Patient: Greater than 30
[2024-06-12 17:43] LABS: Glucose,Whole Blood 128 mg/dL (70-110)
[2024-06-13 00:29] LABS: Glucose,Whole Blood 117 mg/dL (70-110)
[2024-06-13 05:09] LABS: ABG Base Excess 7.2 mmol/L; ABG HCO3 31 mmol/L (21-25); ABG Oxygen Saturation 96.9 % (94-97); ABG PCO2 41 mmHg (35-45); ABG PH 7.49 (7.35-7.45); ABG PO2 80 mmHg (83-108); ABG TCO2 33 mmol/L (19-24); Allen Test Performed? Yes
[2024-06-13 05:13] LABS: Glucose,Whole Blood 121 mg/dL (70-110)
[2024-06-13 05:50] LABS: Anisocytosis Slight; HCT 33.8 % (39.0-53.0); HGB 10.4 gm/dL (13.0-17.5); Hypochromasia Marked; MCH 27.9 pg (25.0-35.0); MCHC 30.7 g/dL (31.0-37.0); MCV 90.8 fL (80.0-100.0); Mean Platelet Volume 7.4; Platelet Count 338 k/uL (150-450); Poikilocytosis Slight; RBC 3.72 m/uL (4.30-5.90); RDW 16.5 % (11.5-15.5)
[2024-06-13 06:03] LABS: Band Neutrophils % 6 %; Neutrophils % (M) 68 %; Nucleated Red Blood Cells 1 /100 WBC (0-0); Total Cells Counted 200
[2024-06-13 06:04] LABS: Eosinophils # (M) 0.27 k/uL (0-0.7); Monocytes # (M) 0.43 k/uL (0-1.0); WBC 5.4 k/uL (3.8-10.6)
[2024-06-13 06:08] LABS: African American GFR (CKD) >90 (>60 ml/min/1.73 sqM); Anion Gap 1 mmol/L; Blood Urea Nitrogen 17 mg/dL (9-20); Calcium 8.2 mg/dL (8.4-10.2); Carbon Dioxide 31 mmol/L (22-30); Chloride 107 mmol/L (98-107); Glucose 108 mg/dL (74-99); Non-African American GFR(CKD) >90 (>60 ml/min/1.73 sqM); Potassium 3.5 mmol/L (3.5-5.1); Sodium 139 mmol/L (137-145)
--- NOTE | 2024-06-13 06:08 | PN ---
PROGRESS NOTE SUBJECTIVE: This is a 58-year-old male who recently had back surgery, and then subsequently sustained additional fractures, after attempting to kick his cat. He fell, and had fractures in the lumbar spine. Today is postop day #3 status post T10 to pelvic decompression and fusion. The patient unfortunately developed a large left-sided frontoparietal CVA. The patient is currently on the ventilator. Volume assist- control, rate 20, tidal volume 500, FiO2 of 40%, PEEP of 5. Blood gases show pO2 of 71, pCO2 of 39, pH 7.50. He is on propofol 25 mcg/kg per minute, saline at KVO, heparin via weight-based protocol, and Vital High Protein at 37 cc an hour, which is goal. Yesterday he did poorly on daily interruption of his sedation. He became very tachypneic and tachycardic. He also had lots of airway secretions, and was not responsive. We will attempt that again today. The patient is placed on Unasyn for E coli infection from the wound. He is currently in atrial fibrillation with a rate of 105. CURRENT LABS: White count 8, hemoglobin 10.8, hematocrit 35.3, and a platelet count of 353,000. Blood gases as mentioned show pO2 of 71, pCO2 of 39, and a pH of 7.50. Sodium 137, potassium 3.8, chloride 107, CO2 27, BUN 18, creatinine 0.35. Glucose is 132. Calcium 8.4, and magnesium 2.2. Microbiologic study show wound cultures growing Escherichia coli, from June 09. IMAGING: Chest x-ray from today shows cardiomegaly with ongoing pulmonary vascular congestion. CT scan of the brain shows an ongoing evolution of the acute or subacute infarct involving the lateral left frontal and parietal regions. OBJECTIVE: VITAL SIGNS: Include a heart rate 94, temperature normal, respiratory rate between 20 to 26 breaths per minute, blood pressure 124/64, saturation of 97%. GENERAL: He appears in no acute distress, he is currently sedated. He has an orally placed endotracheal tube and NG tube. HEENT: Grossly unremarkable. NECK: Supple. Full range of motion. No adenopathy. Neck veins are flat. CARDIOVASCULAR: Irregular rhythm and rate. He is in atrial fibrillation. Heart rate 105. LUNGS: Some scattered rhonchi. No wheezes or crackles. Breath sounds equal. ABDOMEN: Soft, bowel sounds are noted. EXTREMITIES: Intact, without cyanosis, clubbing, or edema. ASSESSMENT: 1. Status post fall with L2 vertebral body compression fracture, L2 and 3 right-sided transverse process fracture and L2/L3 left-sided pedicle/transverse process fracture. 2. Status postoperative day #3, following a revision of T10 to pelvis decompression and fusion with stabilization. 3. Routine postoperative mechanical ventilator management. 4. Recent L2 to pelvis posterior lateral decompression and fusion on May 19, 2024. 5. Acute blood loss anemia. 6. Hypotension. 7. Heart failure with reduced ejection fraction. 8. Chronic atrial fibrillation. 9. History of hypertension. 10.History of hyperlipidemia. 11.History of diabetes. 12.Obesity with BMI of 38.4 kg/m2. 13.Sleep apnea syndrome. 14.COPD. 15.Former tobacco use. 16.Remote history of C2 through T2 decompression and fusion. PLAN: The patient will be given a daily interruption of sedation. He did poorly yesterday. We added Unasyn for his Escherichia coli infection of his wound. The patient remains in atrial fibrillation. The CT scan did show evolution of the patient's left-sided frontoparietal CVA. Blood gases are reasonable. He does have a metabolic alkalosis. The patient continues on propofol, saline, heparin, and Vital High Protein at goal which is 37 cc an hour. Labs, x-rays, medications are reviewed. Prognosis is guarded. MMODL / IJN: [id number] /
--- NOTE | 2024-06-13 07:10 | XR ---
EXAMINATION TYPE: XR chest 1V DATE OF EXAM: 06/13/2024 5:04 AM CLINICAL INDICATION:Male, 58 years old with history of Patient on ventilator; COMPARISON: Chest radiographs from 06/12/2024 TECHNIQUE: XR chest 1V Frontal view of the chest. FINDINGS: Lungs/Pleura: No evidence of focal consolidation or pneumothorax. Blunting of the costophrenic angles is present. Pulmonary vascularity: Pulmonary vascular congestion. Heart/mediastinum: Cardiomediastinal silhouette is enlarged and stable. Musculoskeletal: No acute osseous pathology. There is fixation hardware in the lower cervical and lum bar spine. Other findings: None Lines/Tubes: Endotracheal tube with distal tip xx cm above the shashank. Nasogastric tube with its distal tip and side-port projecting under the diaphragm. IMPRESSION: 1. Pulmonary vascular congestion and cardiomegaly correlate with serum BNP. 2. layering pleural effusions bilaterally.
[2024-06-13] MEDS ORDERED: Potassium Replacement Protocol 1 EACH MISC MISCELLANE PRN (08:30)
--- NOTE | 2024-06-13 08:53 | P.CONS ---
History of Present Illness - Reason for Consult Consult date: 06/12/24 Superficial lumbar surgical site infection Requesting physician: Kenny Jeffrey - Chief Complaint Back pain x few days - History of Present Illness Patient is a 58-year-old male with a past medical history significant for diabetes mellitus hypertension COPD atrial fibrillation sleep apnea presenting to the hospital about a week ago on June 06, 2024 for back pain apparently patient did have back surgery on May 19, 2024 with the patient did have L2-3, L3-4, L4-5, L5-S1 posterior lateral and interbody fusion bilateral open sacroiliac joint fusion patient has been evaluated by spine surgery and he was taken back to the OR on 06/09/2024 and the patient has been diagnosed with the 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 hardware and the patient is status post open treatment insertion of an 12 and L3 fractures revision of the T10 to pelvis posterior lateral instrumented fusion and revision and excisional debridement of lumbar spine removal of the hardware from L2 and L3 T8 vertebroplasty and complex 4 layer closure of the lumbar spine patient during this hospital stay has been afebrile except a low-grade fever on 2023 patient has been intubated on the vent currently on 40% FiO2 no significant purulent secretions through the ET patient is off of pressor support has been tolerating his tube feeds and no diarrhea patient did have a white count of 12.1 on 06/10/2024 however the white count has been normal and did have a normal cre atinine patient is currently on a combination of Unasyn vancomycin and gentamicin infectious disease was consulted last night for further management of antibiotic therapy most information has been obtained from review the chart talking to nursing staff as the patient is currently intubated on the vent cannot provide any history and no family member at the bedside patient did not have any blood culture during this admission Review of Systems Positive points has been mentioned in HPI complete review could not be obtained because of his underlying mental status Past Medical History Past Medical History: Atrial Fibrillation, Heart Failure, COPD, Diabetes Mellitus, GERD/Reflux, Hypertension, Musculoskeletal Disorder, Sleep Apne a/CPAP/BIPAP Additional Past Medical History / Comment(s): DDD, spinal spondylosis, right arm numbness down to fingers, bilateral knees occasionally buckle/wears right knee brace at times, chronic pain, no CPAP use. History of Any Multi-Drug Resistant Organisms: MRSA Year Discovered:: 1999 MDRO Source:: face Past Surgical History: Appendectomy, Cholecystectomy, Orthopedic Surgery Additional Past Surgical History / Comment(s): Cervical fusion/cage with bone from hip, back surgery d/t congenital defect, multiple sutures to face due to chain saw accident, facial MRSA with surgery to remove, colonoscopy, L2-Pelvis decompression and fusion, bilateral SI joint fusions. Past Anesthesia/Blood Transfusion Reactions: Previous Problems w/ Anesthesia Additional Past Anesthesia/Blood Transfusion Reaction / Comm: "Combative when coming out anesthesia." Pt has never had a blood transfusion. Past Psychological History: Anxiety, Depression, PTSD Additional Psychological History / Comment(s): Pt resides with exspouse. Smoking Status: Former smoker Past Alcohol Use History: None Reported Additional Past Alcohol Use History / Comment(s): Started smoking in 1979 and was a ppd smoker, quit 01/2023. Past Drug Use History: Marijuana Additional Drug Use History / Comment(s): USES MARIJUANA DAILY BOTH SMOKING AND EDIBLES-INSTRUCTED TO REFRAIN FROM USE FOR AT LEAST 24 HOURS PRIOR TO PROCEDURE. - Past Family History Mother Family Medical History: Deep Vein Thrombosis (DVT) Sister(s) Family Medical History: Cancer Additional Family Medical History / Comment(s): Colon cancer X2 sisters. Father Family Medical History: Myocardial Infarction ([place]) Additional Family Medical History / Comment(s): at 43 yrs of [place]. Medications and Allergies Home Medications Medication Instructions Recorded Confirmed Type PARoxetine HCL [Paxil] 40 mg PO HS 12/21/19 06/06/24 History buPROPion HCL [buPROPion HCL SR] 150 mg PO BID 12/21/19 06/06/24 History metFORMIN HCL [Glucophage] 500 mg PO BID 12/21/19 06/06/24 History Gabapentin 800 mg PO QID 11/06/22 06/06/24 History Atorvastatin [Lipitor] 40 mg PO HS 03/01/23 06/06/24 History Budesonide [Pulmicort] 1 mg INHALATION RT-BID 11/18/23 06/06/24 History HYDROcodone/APAP 10-325MG [[place] 1 tab PO QID PRN 11/18/23 06/06/24 History 10-325] Ipratropium Nebulized [Atrovent 0.5 mg INHALATION RT-QID 11/18/23 06/06/24 History Nebulized 0.2 MG/ML] Montelukast [Singulair] 10 mg PO HS 11/18/23 06/06/24 History Omeprazole [PriLOSEC] 40 mg PO DAILY 11/18/23 06/06/24 History Dapagliflozin Propanediol [Farxiga] 10 mg PO DAILY #30 tab 11/20/23 06/06/24 Rx Furosemide [Lasix] 40 mg PO DAILY #30 tab 11/20/23 06/06/24 Rx Doxycycline [Vibramycin] 100 mg PO BID 05/18/24 06/06/24 History Cyclobenzaprine [Flexeril] 10 mg PO BID PRN #30 tab 05/26/24 06/06/24 Rx Rivaroxaban [Xarelto] 10 mg PO W/SUPPER 06/06/24 06/06/24 History cefaDROXiL [Duricef] 500 mg PO Q12HR 06/06/24 06/06/24 History oxyCODONE-APAP 10-325MG [Percocet 1 tab PO Q6HR PRN 06/06/24 06/06/24 History 10-325 mg] Allergies Allergy/AdvReac Type Severity Reaction Status Date / Time No Known Allergies Allergy Verified 06/09/24 11:13 Physical Exam Vitals: Vital Signs Temp Pulse Resp BP Pulse Ox FiO2 06/12/24 11:01 94 26 H 06/12/24 11:00 89 20 97 06/12/24 10:58 40 06/12/24 10:54 105 H 24 06/12/24 10:00 113 H 20 93 L 06/12/24 09:00 111 H 20 90 L 06/12/24 08:13 108 H 24 06/12/24 08:07 40 06/12/24 08:01 108 H 26 H 06/12/24 08:00 99.0 F 101 H 24 95 40 06/12/24 07:52 98 25 H 06/12/24 07:00 93 4 L 129/78 95 06/12/24 06:00 100 27 H 110/85 95 06/12/24 05:00 98 28 H 111/77 94 L 06/12/24 04:00 98.1 F 111/77 40 06/12/24 03:31 40 06/12/24 03:00 105 H 25 H 111/72 95 06/12/24 02:00 93 25 H 117/76 94 L 06/12/24 01:00 105 H 23 117/77 94 L 06/12/24 00:00 99.0 F 96 22 120/86 94 L 40 06/11/24 23:55 40 06/11/24 23:45 92 22 94 L 06/11/24 23:00 104 H 23 93 L 06/11/24 22:00 96 22 120/80 93 L 06/11/24 21:00 120 H 29 H 121/77 93 L 06/11/24 20:00 98.8 F 111 H 28 H 122/80 96 40 06/11/24 19:58 108 H 27 H 06/11/24 19:43 40 06/11/24 19:42 104 H 27 H 06/11/24 19:00 106 H 20 121/74 94 L 06/11/24 18:00 96 26 H 93 L 06/11/24 17:17 105 H 06/11/24 17:12 40 06/11/24 17:10 111 H 06/11/24 17:00 110 H 24 94 L 06/11/24 16:45 105 H 29 H 94 L 06/11/24 16:30 102 H 22 94 L 06/11/24 16:15 98 30 H 95 06/11/24 16:00 98.9 F 100 27 H 94 L 40 06/11/24 15:45 101 H 21 95 06/11/24 15:30 104 H 26 H 94 L 06/11/24 15:15 106 H 32 H 95 06/11/24 15:00 107 H 26 H 93 L 06/11/24 14:45 102 H 25 H 94 L 06/11/24 14:30 107 H 28 H 92 L 06/11/24 14:15 118 H 25 H 92 L 06/11/24 14:00 103 H 24 94 L 06/11/24 13:45 99 27 H 96 06/11/24 13:30 108 H 26 H 96 06/11/24 13:15 111 H 21 95 06/11/24 13:00 103 H 27 H 95 06/11/24 12:45 105 H 24 95 06/11/24 12:30 137 H 27 H 95 06/11/24 12:21 40 06/11/24 12:15 101 H 22 97 07/18/24 12:00 99.1 F 105 H 28 H 96 40 06/11/24 11:45 101 H 32 H 97 Intake and Output 06/11/24 06/12/24 06/12/24 22:59 06:59 14:59 Intake Total 739.305 576 318.585 Output Total 905 439 235 Balance -165.695 137 83.585 Intake: IV 80 80 50 kvo 80 80 50 Intake, IV Titration 292.305 100 83.585 Amount Heparin Sod,Pork in 0.45% 237.059 NaCl 25,000 unit In 0.45 % NaCl 1 250ml.bag @ 8.65 UNITS/KG/HR 9.999 mls/hr IV .Q24H [facility] Rx#: [id number] propofoL 1,000 mg In 55.246 100 83.585 Empty Bag 1 bag @ 15 MCG/ KG/MIN 10.305 mls/hr IV . [id number] [facility] Rx#:[id number] Tube Feeding 197 296 185 Other 170 100 Output: Drainage 100 50 Right Back 100 50 Urine 805 389 235 Other: Voiding Method Indwelling Catheter Indwelling Catheter Indwelling Catheter Weight 114.8 kg ABP, PAP, CO, CI - Last 8 Hours Arterial Blood Pressure 124/64 Arterial Blood Pressure 135/65 Arterial Blood Pressure 125/68 Arterial Blood Pressure 124/63 Arterial Blood Pressure 122/63 Arterial Blood Pressure 138/70 Arterial Blood Pressure 128/62 GENERAL DESCRIPTION: middle age male intubated on the vent HEENT: Shows Pallor , no scleral icterus. Oral mucous membrane is dry. NECK: Trachea central, no thyromegaly. LUNGS: Unlabored breathing. Decreased breath sounds at the base HEART: S1, S2, regular rate and rhythm. No loud murmur ABDOMEN: Soft, no tenderness , EXTREMITIES: No edema of feet. SKIN: Lumbar surgical site is currently dressed in OR dressing no drainage on the dressing NEUROLOGICAL: The patient is sedated on the vent Results CBC & Chem 7: 06/13/24 05:10 06/13/24 05:10 Labs: Abnormal Lab Results - Last 24 Hours (Table) 06/11/24 06/11/24 06/11/24 Range/Units 11:32 12:06 16:08 RBC (4.30-5.90) m/uL Hgb (13.0-17.5) gm/dL Hct (39.0-53.0) % MCHC (31.0-37.0) g/dL RDW (11.5-15.5) % APTT 38.0 H (22.0-30.0) sec ABG pH 7.46 H (7.35-7.45) ABG pO2 (83-108) mmHg ABG HCO3 28 H (21-25) mmol/L ABG Total CO2 29 H (19-24) mmol/L ABG O2 Saturation 97.3 H (94-97) % Creatinine (0.66-1.25) mg/dL Glucose (74-99) mg/dL POC Glucose (mg/dL) 120 H (70-110) mg/dL 06/11/24 06/11/24 06/12/24 Range/Units 17:47 21:30 00:11 RBC (4.30-5.90) m/uL Hgb (13.0-17.5) gm/dL Hct (39.0-53.0) % MCHC (31.0-37.0) g/dL RDW (11.5-15.5) % APTT 40.3 H (22.0-30.0) sec ABG pH (7.35-7.45) ABG pO2 (83-108) mmHg ABG HCO3 (21-25) mmol/L ABG Total CO2 (19-24) mmol/L ABG O2 Saturation (94-97) % Creatinine (0.66-1.25) mg/dL Glucose (74-99) mg/dL POC Glucose (mg/dL) 112 H 113 H (70-110) mg/dL 06/12/24 06/12/24 06/12/24 Range/Units 04:45 04:45 04:45 RBC 3.87 L (4.30-5.90) m/uL Hgb 10.8 L (13.0-17.5) gm/dL Hct 35.3 L (39.0-53.0) % MCHC 30.7 L (31.0-37.0) g/dL RDW 16.6 H (11.5-15.5) % APTT 48.7 H (22.0-30.0) sec ABG pH (7.35-7.45) ABG pO2 (83-108) mmHg ABG HCO3 (21-25) mmol/L ABG Total CO2 (19-24) mmol/L ABG O2 Saturation (94-97) % Creatinine 0.35 L (0.66-1.25) mg/dL Glucose 108 H (74-99) mg/dL POC Glucose (mg/dL) (70-110) mg/dL 06/12/24 06/12/24 Range/Units 05:16 06:09 RBC (4.30-5.90) m/uL Hgb (13.0-17.5) gm/dL Hct (39.0-53.0) % MCHC (31.0-37.0) g/dL RDW (11.5-15.5) % APTT (22.0-30.0) sec ABG pH 7.50 H (7.35-7.45) ABG pO2 71 L (83-108) mmHg ABG HCO3 30 H (21-25) mmol/L ABG Total CO2 31 H (19-24) mmol/L ABG O2 Saturation (94-97) % Creatinine (0.66-1.25) mg/dL Glucose (74-99) mg/dL POC Glucose (mg/dL) 132 H (70-110) mg/dL Microbiology - Last 24 Hours (Table) 06/09/24 18:00 Gram Stain - Preliminary Other - Other Wound Culture - Preliminary Escherichia coli 06/09/24 17:52 Gram Stain - Preliminary Other - Other Wound Culture - Preliminary Escherichia coli Assessment and Plan (1) Surgical site infection Current Visit: Yes Status: Acute Code(s): T81.49XA - INFECTION FOLLOWING A PROCEDURE, OTHER SURGICAL SITE, INIT SNOMED Code(s): 90771771 (2) Infection due to ESBL-producing Escherichia coli Current Visit: Yes Status: Acute Code(s): A49.8 - OTHER BACTERIAL INFECTIONS OF UNSPECIFIED SITE; Z16.12 - EXTENDED SPECTRUM BETA LACTAMASE (ESBL) RESISTANCE SNOMED Code(s): 870340349 Plan: 1patient presented to the hospital with back pain more than a week ago from initial evaluation in this patient who did have extensive lumbosacral spine surgery now has been taken back to the OR noticed to have hardware failure fracture of the vertebra s/p redo surgery and culture which are now growing gram-negative and has been finalized as ESBL E. coli 2-discontinue vancomycin gentamicin and Unasyn 3-patient will be started on Invanz 1 g daily will need a PICC line for outpatient admitted by therapy 4-blood culture has been requested before first dose of Invanz to make sure. Not bacteremic We will follow on clinical condition and cultures to further adjust medication if needed Thank you for this consultation we will follow the patient along with you Dictation was produced using [employer] dictation software. please excuse any grammatical, word or spelling errors. Time with Patient: Greater than 30
[2024-06-13] MEDS: POTASSIUM BICARBONATE/CIT AC 20 MEQ TABLET.EFF NG-TUBE SCH ×2 (09:29→18:11)
[2024-06-13] MEDS: METOPROLOL TARTRATE 50 MG TAB PO SCH (09:30)
--- NOTE | 2024-06-13 10:18 | P.PN ---
Subjective Progress Note Date: 06/13/24 Principal diagnosis: CVA. Patient is a 58-year-old white male with past medical history significant for obstructive sleep apnea with home CPAP, COPD, ex tobacco smoker, marijuana smoker, atrial fibrillation with previous cardioversion and anticoagulated on Xarelto, diabetes mellitus, hypertension, heart failure, and previous spinal surgeries. His primary care provider is Dr. Deuce Brito. He is currently intubated to the mechanical ventilator, unable to provide any information for HPI. Of note, patient recently underwent an L2 to pelvis posterior lateral decompression and fusion on 05/19/2024 at [facility]. During this admission, he initially was recovered in the intensive care unit. Technically, difficult to extubate, and did require BiPAP support immediately after extubation. He was eventually discharged home on 05/26/2024. Patient returned the emergency department on 06/06/2024. On review of the ER documentation, he had a fall while at home. CT of the lumbar spine demonstrated new compression fracture of L2 vertebral body with compression of the vertebral body down to the pedicle screws bilaterally and loosening the left pedicle screw. New left pedicle/transverse process of L2 and L3 fractures around the hardware with mild displacement. Fractures of the right transverse process of L2 and L3. Likely postsurgical subcutaneous gas in the surgical bed. Patient underwent revision thoracic T10 to pelvis decompression fusion yesterday. Intraoperatively, patient had an EBL of 1 L. He has received a total of 5 units of PRBCs, 1 FFP, and 1 pack platelets. He was sent to the intensive care unit postoperatively. He remains on the mechanical ventilator. Chest x-ray shows the endotracheal tube approximately 4.3 cm above the shashank. There is cardiomegaly with pulmonary vascular congestion suggested. No pleural effusions, pneumothoraces, focal consolidations. Initial ABG had a PaO2 of 80, pCO2 of 61, pH of 7.27. This was done on original ventilator settings of assist-control, respiratory rate 14, tidal volume 500, FiO2 1 9%, and PEEP of 5. My supervising physician is already increased the patient's respiratory rate to 20. He is currently synchronous with mechanical ventilator. There is a moderate amount of clear to white endotracheal secretions. Peak pressures 23. He is sedated with propofol which is currently infusing at 50 mcg/kg/min. He is fairly unarousable. Will withdraw to painful stimuli in all 4 extremities. There is also norepinephrine infusing at 0.02 mcg/kg/min. There is a MAP goal of 80 mmHg to support [employer] perfusion. LR is infusing at 10 MLS per hour. There is a Hemovac with a total of 220 serosanguineous output since surgery. We are awaiting postoperative labs. Preoperatively, CBC: WBC count 9.4, hemoglobin 9.6, hematocrit 32.5, platelets 516. Preoperative CMP: Sodium 137, potassium 4.1, chloride 104, serum bicarb 27, BUN 18, creatinine 0.61, glucose 143. LFTs unremarkable. Receiving prophylactic cefazolin. Note that preoperatively, patient did have a cardiac evaluation. Repeat echocardiogram shows a severely reduced left ventricular ejection fraction of 25 to 30% as well as mild mitral and tricuspid regurgitation. Heart rhythm is atrial fibrillation with controlled ventricular response. Normally anticoagulated on Xarelto, however, this is on hold for surgery. Progress note dated June 11, 2024. 58-year-old male recently had additional back surgery, including a T10 to pelvic decompression and fusion. Please see my consultation from yesterday. Today is postop day #2. The patient was brought back to the ICU on the ventilator. Will be woke him up for the daily interruption of sedation yesterday, it was noted that he was not moving his right side. He was sent for an immediate CT scan without contrast. It showed a subacute left frontoparietal CVA. It was isch emic in nature. He remains on mechanical ventilator. He is on volume assist- control, rate 20, tidal line 500, FiO2 50% to be dropped down to 40%, and PEEP of 5. Blood gases show pO2 118, pCO2 37, pH is 7.47. The patient is taking propofol at 50 mcg/kg/min, saline at KVO norepinephrine at 2 mcg/min IV heparin, and vital HP at 20 cc an hour with a goal of 37 cc. White count 8.9, hemoglobin 10, hematocrit 32.3, platelet count 262,000. PTT is 36.6. Sodium 136, potassium 4.2, chlorides 105, CO2 24, BUN 14, creatinine 0.37. Glucose is 138. Hemoglobin A1c is 6.6. Chest x-ray is essentially within normal range today for cardiomegaly. Progress note dated June 12, 2024. 58-year-old male seen again in room 255. The patient remains on mechanical ventilation. He is on volume assist-control, rate 20, tidal volume 500, FiO2 40%, PEEP of 5. Blood gases show pO2 of 80, pCO2 41, pH is 7.49. This blood gases consistent with metabolic alkalosis. The patient is on propofol at 25 mcg/kg/min, heparin via weight-based protocol, and vital HP at 37 cc an hour, which is goal. The patient had evidence of E. coli from the wound culture, the Escherichia coli is ESBL E. coli. For that reason he is on ertapenem. We will attempt a daily interruption of sedation. The patient did poorly with this holiday yesterday. His mental status was poor, but he still has increased secretions. He may eventually need tracheostomy and PEG tube placement. White count 5.4, hemoglobin 10.4, hematocrit 33.8, platelet count 338,000. PTT is 58.6. Sodium 139, potassium 3.5, chlorides 107, CO2 31, BUN 17, creatinine 0.37. Glucose is 108. Calcium 8.2. Chest x-ray shows a pattern of pulmonary vascular congestion, and bilateral effusions. Objective - Vital Signs Vital signs: Vital Signs Temp 99.2 F 06/13/24 08:00 Pulse 98 06/13/24 10:00 Resp 24 06/13/24 10:00 BP 118/73 06/13/24 10:00 Pulse Ox 96 06/13/24 10:00 FiO2 40 06/13/24 08:00 Intake & Output 06/12/24 06/13/24 06/13/24 18:59 06:59 18:59 Intake Total 028.917 3664.037 291.491 Output Total 1260 565 180 Balance -534.555 438.037 111.491 Weight 114.8 kg 114.2 kg Intake: IV 120 130 80 Ertapenem 1 gm In Sodium 50 Chloride 0.9% 50 ml @ 100 mls/hr IVPB DAILY [facility] Rx #:[id number] kvo 120 130 30 Intake, IV Titration 161.445 392.037 33.491 Amount Heparin Sod,Pork in 0.45% 250 NaCl 25,000 unit In 0.45 % NaCl 1 250ml.bag @ 8.65 UNITS/KG/HR 9.999 mls/hr IV .Q24H [facility] Rx#: [id number] propofoL 1,000 mg In 161.445 142.037 33.491 Empty Bag 1 bag @ 15 MCG/ KG/MIN 10.305 mls/hr IV . Q9H43M [facility] Rx#:[id number] Tube Feeding 444 481 148 Other 30 Output: Drainage 20 Right Back 20 Urine 1260 545 180 Other: Voiding Method Indwelling Catheter Indwelling Catheter ABP, PAP, CO, CI - Last Documented Arterial Blood Pressure 140/89 - Exam No acute distress, sedated, with an orally placed endotracheal tube. HEENT examination is grossly unremarkable. Mucous membranes are moist. No oral lesions. Neck supple. Full range of motion. No adenopathy thyromegaly or neck vein distention. Cardiovascular examination reveals regular rhythm rate. S1-S2 normal. No S3 or S4. No discernible murmur noted. Heart rate 98 bpm. Lungs reveal mostly clear breath sounds. Minimal scattered rhonchi. No wheezes or crackles. Breath sounds equal. Saturations are 96%. Abdomen soft bowel sounds are heard. No masses or tenderness. Extremities are intact. No cyanosis clubbing or edema. Skin is without rash or lesion. Neurologic examination cannot be assessed at this time. - Labs CBC & Chem 7: 06/13/24 05:10 06/13/24 05:10 Labs: Abnormal Lab Results - Last 24 Hours (Table) 06/12/24 06/12/24 06/12/24 Range/Units 04:45 04:45 13:04 RBC (4.30-5.90) m/uL Hgb (13.0-17.5) gm/dL Hct (39.0-53.0) % MCHC (31.0-37.0) g/dL RDW (11.5-15.5) % Lymphocytes # (Manual) (1.0-4.8) k/uL Nucleated RBCs (0-0) /100 WBC ESR 48 H (0-20) mm/Hr APTT (22.0-30.0) sec ABG pH (7.35-7.45) ABG pO2 (83-108) mmHg ABG HCO3 (21-25) mmol/L ABG Total CO2 (19-24) mmol/L Carbon Dioxide (22-30) mmol/L Creatinine (0.66-1.25) mg/dL Glucose (74-99) mg/dL POC Glucose (mg/dL) 121 H (70-110) mg/dL Calcium (8.4-10.2) mg/dL C-Reactive Protein 19.3 H (<1.0) mg/dL 06/12/24 06/13/24 06/13/24 Range/Units 17:42 00:28 05:05 RBC (4.30-5.90) m/uL Hgb (13.0-17.5) gm/dL Hct (39.0-53.0) % MCHC (31.0-37.0) g/dL RDW (11.5-15.5) % Lymphocytes # (Manual) (1.0-4.8) k/uL Nucleated RBCs (0-0) /100 WBC ESR (0-20) mm/Hr APTT (22.0-30.0) sec ABG pH 7.49 H (7.35-7.45) ABG pO2 80 L (83-108) mmHg ABG HCO3 31 H (21-25) mmol/L ABG Total CO2 33 H (19-24) mmol/L Carbon Dioxide (22-30) mmol/L Creatinine (0.66-1.25) mg/dL Glucose (74-99) mg/dL POC Glucose (mg/dL) 128 H 117 H (70-110) mg/dL Calcium (8.4-10.2) mg/dL C-Reactive Protein (<1.0) mg/dL 06/13/24 06/13/24 06/13/24 Range/Units 05:10 05:10 05:10 RBC 3.72 L (4.30-5.90) m/uL Hgb 10.4 L (13.0-17.5) gm/dL Hct 33.8 L (39.0-53.0) % MCHC 30.7 L (31.0-37.0) g/dL RDW 16.5 H (11.5-15.5) % Lymphocytes # (Manual) 0.70 L (1.0-4.8) k/uL Nucleated RBCs 1 H (0-0) /100 WBC ESR (0-20) mm/Hr APTT 58.6 H (22.0-30.0) sec ABG pH (7.35-7.45) ABG pO2 (83-108) mmHg ABG HCO3 (21-25) mmol/L ABG Total CO2 (19-24) mmol/L Carbon Dioxide 31 H (22-30) mmol/L Creatinine 0.37 L (0.66-1.25) mg/dL Glucose 108 H (74-99) mg/dL POC Glucose (mg/dL) (70-110) mg/dL Calcium 8.2 L (8.4-10.2) mg/dL C-Reactive Protein (<1.0) mg/dL 06/13/24 Range/Units 05:11 RBC (4.30-5.90) m/uL Hgb (13.0-17.5) gm/dL Hct (39.0-53.0) % MCHC (31.0-37.0) g/dL RDW (11.5-15.5) % Lymphocytes # (Manual) (1.0-4.8) k/uL Nucleated RBCs (0-0) /100 WBC ESR (0-20) mm/Hr APTT (22.0-30.0) sec ABG pH (7.35-7.45) ABG pO2 (83-108) mmHg ABG HCO3 (21-25) mmol/L ABG Total CO2 (19-24) mmol/L Carbon Dioxide (22-30) mmol/L Creatinine (0.66-1.25) mg/dL Glucose (74-99) mg/dL POC Glucose (mg/dL) 121 H (70-110) mg/dL Calcium (8.4-10.2) mg/dL C-Reactive Protein (<1.0) mg/dL Microbiology - Last 24 Hours (Table) 06/09/24 17:52 Anaerobic Culture - Preliminary Other - Other 06/09/24 18:00 Anaerobic Culture - Preliminary Other - Other 06/09/24 18:00 Gram Stain - Final Other - Other Wound Culture - Final Escherichia coli 06/09/24 17:52 Gram Stain - Final Other - Other Wound Culture - Final Escherichia coli Assessment and Plan Assessment: Status post fall, with L2 vertebral body compression fracture, L2-L3 right-sided transverse process fractures, and L2-L3 left-sided pedicle/transverse process fractures. Status postoperative day #3 following a revision T10 to pelvis decompression and fusion with stabilization. Routine postoperative mechanical ventilator management. ESBL Escherichia coli wound infection. Recent L2 to pelvis posterior lateral decompression and fusion on 05/19/2024. Acute blood loss anemia, patient has received a total of 5 units of PRBCs per ioperatively, 1 pack platelets, and is going to receive 1 unit FFP. Hypotension, currently on norepinephrine. Heart failure with reduced ejection fraction. Chronic atrial fibrillation. History of hypertension. History of hyperlipidemia. History of diabetes mellitus. Obesity, with a BMI of 38.4 kg/m. History of obstructive sleep apnea. Chronic obstructive pulmonary disease, stable. Former tobacco smoker. Remote history of prior C2-T2 Decompression and fusion. Plan: Plan dated June 11, 2024. The patient remains in the intensive care unit, on the mechanical ventilator. The patient did not do well yesterday with his daily interruption of sedation. It will be tried again today. The patient's FiO2 was reduced from 50%, down to 40%. The pO2 on the blood gas was 118. The patient continues on propofol at 50 mcg/kg/min, saline at KVO, and norepinephrine at 2 mcg/min. The patient is also receiving IV heparin via weight-based protocol, and vital high-protein, at 20 cc an hour, with a goal of 37 cc. The patient was discovered to have a left frontal parietal CVA, which is thought to be subacute. He is postop day #2. Labs, x-rays, and all medications are reviewed. Plan dated June 13, 2024. The patient remains in the intensive care unit. Yesterday, he did poorly with his sedation holiday. He has lots of airway secretions, and his mental status was poor. For that reason, he was resedated. We will attempt another sedation holiday today. The wound cultures, from his back, show evidence of ESBL Escherichia coli. For that reason he is on ertapenem. He continues on propofol at 25 mcg/kg/min, heparin via weight-based protocol, and vital HP at 37 cc an hour which is goal. Blood gases show pO2 of 80, pCO2 41, pH is 7.49. This blood gases consistent with metabolic alkalosis. Labs, x-rays, and medications are reviewed. The patient's overall prognosis remains guarded. We will continue to follow make recommendations along the way. Time with Patient: Greater than 30
--- NOTE | 2024-06-13 11:22 | P.PN ---
Subjective Progress Note Date: 06/13/24 I am following up with the patient and the patient is on sedation holiday. Per the nurse, he would move the left side spontaneously and would open his eyes and she stated once he followed commands but other times it seems he is refusing. Wound culture is positive for ESBL E. coli. Objective - Vital Signs Vital signs: Vital Signs Temp 99.2 F 06/13/24 08:00 Pulse 98 06/13/24 10:00 Resp 24 06/13/24 10:00 BP 118/73 06/13/24 10:00 Pulse Ox 96 06/13/24 10:00 FiO2 40 06/13/24 08:00 Intake & Output 06/12/24 06/13/24 06/13/24 18:59 06:59 18:59 Intake Total 752.711 5346.037 509.964 Output Total 1260 565 290 Balance -534.555 438.037 219.964 Weight 114.8 kg 114.2 kg Intake: IV 120 130 90 Ertapenem 1 gm In Sodium 50 Chloride 0.9% 50 ml @ 100 mls/hr IVPB DAILY [facility] Rx #:[id number] kvo 120 130 40 Intake, IV Titration 161.445 392.037 204.964 Amount Heparin Sod,Pork in 0.45% 250 171.473 NaCl 25,000 unit In 0.45 % NaCl 1 250ml.bag @ 8.65 UNITS/KG/HR 9.999 mls/hr IV .Q24H [facility] Rx#: [id number] propofoL 1,000 mg In 161.445 142.037 33.491 Empty Bag 1 bag @ 15 MCG/ KG/MIN 10.305 mls/hr IV . Q9H43M [facility] Rx#:[id number] Tube Feeding 444 481 185 Other 30 Output: Drainage 20 Right Back 20 Urine 1260 545 290 Other: Voiding Method Indwelling Catheter Indwelling Catheter Indwelling Catheter ABP, PAP, CO, CI - Last Documented Arterial Blood Pressure 140/89 - Exam General: Lying in bed and does not appear in acute distress. Respiratory: Intubated on ventilator. Neuro: Limited. Patient is on IV Propofol is held. Patient would open his eyes upon trying to examine him and then he would close immediately and will turn his head to the other side and not interested in examination. He moves the left side spontaneously 1 time and I felt he moved right lower extremity once minimally but mostly the left more than the right lower. No movement of the right upper extremity. Some of the other workup during this hospital visit consisted of: Lipid panel is triglyceride 68, cholesterol is 56, LDL is 18 and HDL is 23 Hemoglobin A1c 6.6. The echo on 06/08/2024 is reported as ejection fraction of [address] head is reported as finding of acute/subacute CVA involving the left frontal parietal region. CTA head and neck is read as no significant diameter reduction to account for the patient's symptoms. Area of hypoattenuation as described on the prior CT brain left frontal parietal region compatible with a finding of acute/subacute CVA. Repeat CT head today in morning: Ongoing evolution of acute to subacute infarct over latral left frontal and parietal region with greater degree of hypodensity. Similar sulcal effacement. Minimal righward midline shift of 4mm vs 3mm measure on 06/10/24. No hemorrhagic transformation. Wound culture is positive for ESBL E. coli. - Labs CBC & Chem 7: 06/13/24 05:10 06/13/24 05:10 Labs: Abnormal Lab Results - Last 24 Hours (Table) 06/12/24 06/12/24 06/12/24 Range/Units 04:45 04:45 13:04 RBC (4.30-5.90) m/uL Hgb (13.0-17.5) gm/dL Hct (39.0-53.0) % MCHC (31.0-37.0) g/dL RDW (11.5-15.5) % Lymphocytes # (Manual) (1.0-4.8) k/uL Nucleated RBCs (0-0) /100 WBC ESR 48 H (0-20) mm/Hr APTT (22.0-30.0) sec ABG pH (7.35-7.45) ABG pO2 (83-108) mmHg ABG HCO3 (21-25) mmol/L ABG Total CO2 (19-24) mmol/L Carbon Dioxide (22-30) mmol/L Creatinine (0.66-1.25) mg/dL Glucose (74-99) mg/dL POC Glucose (mg/dL) 121 H (70-110) mg/dL Calcium (8.4-10.2) mg/dL C-Reactive Protein 19.3 H (<1.0) mg/dL 06/12/24 06/13/24 06/13/24 Range/Units 17:42 00:28 05:05 RBC (4.30-5.90) m/uL Hgb (13.0-17.5) gm/dL Hct (39.0-53.0) % MCHC (31.0-37.0) g/dL RDW (11.5-15.5) % Lymphocytes # (Manual) (1.0-4.8) k/uL Nucleated RBCs (0-0) /100 WBC ESR (0-20) mm/Hr APTT (22.0-30.0) sec ABG pH 7.49 H (7.35-7.45) ABG pO2 80 L (83-108) mmHg ABG HCO3 31 H (21-25) mmol/L ABG Total CO2 33 H (19-24) mmol/L Carbon Dioxide (22-30) mmol/L Creatinine (0.66-1.25) mg/dL Glucose (74-99) mg/dL POC Glucose (mg/dL) 128 H 117 H (70-110) mg/dL Calcium (8.4-10.2) mg/dL C-Reactive Protein (<1.0) mg/dL 06/13/24 06/13/24 06/13/24 Range/Units 05:10 05:10 05:10 RBC 3.72 L (4.30-5.90) m/uL Hgb 10.4 L (13.0-17.5) gm/dL Hct 33.8 L (39.0-53.0) % MCHC 30.7 L (31.0-37.0) g/dL RDW 16.5 H (11.5-15.5) % Lymphocytes # (Manual) 0.70 L (1.0-4.8) k/uL Nucleated RBCs 1 H (0-0) /100 WBC ESR (0-20) mm/Hr APTT 58.6 H (22.0-30.0) sec ABG pH (7.35-7.45) ABG pO2 (83-108) mmHg ABG HCO3 (21-25) mmol/L ABG Total CO2 (19-24) mmol/L Carbon Dioxide 31 H (22-30) mmol/L Creatinine 0.37 L (0.66-1.25) mg/dL Glucose 108 H (74-99) mg/dL POC Glucose (mg/dL) (70-110) mg/dL Calcium 8.2 L (8.4-10.2) mg/dL C-Reactive Protein (<1.0) mg/dL 06/13/24 Range/Units 05:11 RBC (4.30-5.90) m/uL Hgb (13.0-17.5) gm/dL Hct (39.0-53.0) % MCHC (31.0-37.0) g/dL RDW (11.5-15.5) % Lymphocytes # (Manual) (1.0-4.8) k/uL Nucleated RBCs (0-0) /100 WBC ESR (0-20) mm/Hr APTT (22.0-30.0) sec ABG pH (7.35-7.45) ABG pO2 (83-108) mmHg ABG HCO3 (21-25) mmol/L ABG Total CO2 (19-24) mmol/L Carbon Dioxide (22-30) mmol/L Creatinine (0.66-1.25) mg/dL Glucose (74-99) mg/dL POC Glucose (mg/dL) 121 H (70-110) mg/dL Calcium (8.4-10.2) mg/dL C-Reactive Protein (<1.0) mg/dL Microbiology - Last 24 Hours (Table) 06/09/24 17:52 Anaerobic Culture - Preliminary Other - Other 06/09/24 18:00 Anaerobic Culture - Preliminary Other - Other 06/09/24 18:00 Gram Stain - Final Other - Other Wound Culture - Final Escherichia coli 06/09/24 17:52 Gram Stain - Final Other - Other Wound Culture - Final Escherichia coli Assessment and Plan Assessment: Is a 58-year-old gentleman with history of atrial fibrillation status post cardioversion on Xarelto, diabetes mellitus, heart failure, cervical myelopathy, back pain and had recent L2 to pelvis decompression and fusion of bilateral open SI joint on 05/19/2024 who had a recent fall with back pain. Patient yesterday had L2-L3 fracture and has hardware failure of the thoracic spine to pelvis. 3 the patient had L1-L2 and L3 revision T10 to pelvis posterior lateral instrumented fusion with hardware removal. His Xarelto was held 48 hours and it seems last dose was on 06/08/2024 per the nurse. Today when the sedation was held the patient was not moving the right side and CT of the head shows acute to subacute over the left frontal parietal region. Acute to subacute stroke (seems more subacute) over the left frontal parietal region (from limited examination has right hemiparesis on examination, not following commands). Stroke seems more embolic especially with a history of A- fib and anticoagulation held for 48 hours because of cervical surgery. On repeat CT head has evolution of the stroke over the left fronto/parietal region with mild midline shift and no hemorrhagic conversion. With mental status due to above, sepsis (Wound culture is positive for ESBL E. coli.) Recent fall with back pain and it seems that the patient has L2-L3 Fracture s/p revision T10 to Pelvis posterior lateral instrument fusion with hardware removal POD#3 Intubated on a ventilator History of atrial fibrillation status post cardioversion and was on Xarelto and the Xarelto was held for the last 48 hours but currently on heparin drip History of cervical myelopathy status post C2-T2 decompression and fusion Recent recent L2 to pelvis decompression and fusion of bilateral open SI joint on 05/19/2024 History of Systolic Heart failure and recent 2D echo on 06/08/24 has EF 25-30% Diabetes mellitus and HbA1c: 6.6 Chronic hypertension History of hyperlipidemia History of obstructive sleep apnea Former tobacco use Plan: Will obtain repeat CT head tomorrow. Patient is on heparin drip for the A-fib. Recommend to continue heparin drip and if by this Saturday no hemorrhagic conversion and CT head remains stable then can continue to resumen Xarelto. Is on Lipitor 40mg qhs which is sufficient for secondary stroke prophylaxis. Pending repeat limited 2D echo since the echo he had was prior to stroke and to rule out any thrombus not seen on initial echo especially since his anticoagulation was held. Continue neurochecks Cardiac monitoring PT OT are consulted Cardiology team is on board Will defer the rest of the medical management to primary and other specialists DVT prophylaxis: On heparin drip Condition is very guarded. Plan discussed with ICU nurse. Time with Patient: Less than 30
[2024-06-13 11:59] LABS: Glucose,Whole Blood 146 mg/dL (70-110)
--- NOTE | 2024-06-13 12:04 | P.PN ---
Subjective Progress Note Date: 06/13/24 The patient is a 58-year-old male with multiple comorbid conditions and follows in the office with Dr. Menard. Cardiology was consulted for preoperative clearance as the patient sustained a mechanical fall and suffered a lumbar spine fracture. Yesterday the patient underwent open treatment of L1-L2 fracture with revision of T10 through pelvis decompression and fusion with stabilization. The patient did have intraoperative blood loss at approximately 800 mL. He remains in the ICU on ventilator, with minimal vasopressor support. the patient continues to not be responsive enough to be weaned off of ventilator. He remains on IV heparin as well as oral beta blockers for A. fib management GENERAL: Ill-appearing, well-nourished and in no acute distress. Sedated on ventilator NECK: Supple without JVD or thyromegaly. LUNGS: Breath sounds diminished to auscultation bilaterally. Respiration equal and unlabored. No wheezes, rales or rhonchi. HEART: Irregular rate and rhythm without murmurs, rubs or gallops. S1 and S2 heard. EXTREMITIES: Normal range of motion, mild edema. No clubbing or cyanosis. Peripheral pulses intact and strong. TELEMETRY: Rate controlled atrial fibrillation with heart rates in the 90's IMPRESSION: Status post mechanical fall Recent revision of L2 to pelvis posterior lateral decompression and fusion with bilateral open SI joint fusions on 05/19/2024 Hardware failure of L2-L3, status post L1-L2 revision and T10 through pelvis decompression and fusion Persistent atrial fibrillation Hypertension Hyperlipidemia Diabetes Cardiomyopathy, unspecified type, EF 25 to 30% PLAN: continue current medication regimen Maximize beta rylan as needed for rate control Transition back to oral anticoagulation when extubated no further recommendations from the cardiac standpoint I am dictating on behalf of Dr Michele Silveira's history/physical and assessment/plan. Objective - Vital Signs Vital signs: Vital Signs Temp 99.2 F 06/13/24 08:00 Pulse 105 H 06/13/24 11:55 Resp 24 06/13/24 11:00 BP 132/86 06/13/24 11:00 Pulse Ox 97 06/13/24 11:00 FiO2 40 06/13/24 08:00 Intake & Output 06/12/24 06/13/24 06/13/24 18:59 06:59 18:59 Intake Total 349.200 5031.037 509.964 Output Total 1260 565 290 Balance -534.555 438.037 219.964 Weight 114.8 kg 114.2 kg Intake: IV 120 130 90 Ertapenem 1 gm In Sodium 50 Chloride 0.9% 50 ml @ 100 mls/hr IVPB DAILY [facility] Rx #:[id number] kvo 120 130 40 Intake, IV Titration 161.445 392.037 204.964 Amount Heparin Sod,Pork in 0.45% 250 171.473 NaCl 25,000 unit In 0.45 % NaCl 1 250ml.bag @ 8.65 UNITS/KG/HR 9.999 mls/hr IV .Q24H [facility] Rx#: [id number] propofoL 1,000 mg In 161.445 142.037 33.491 Empty Bag 1 bag @ 15 MCG/ KG/MIN 10.305 mls/hr IV . Q9H43M [facility] Rx#:[id number] Tube Feeding 444 481 185 Other 30 Output: Drainage 20 Right Back 20 Urine 1260 545 290 Other: Voiding Method Indwelling Catheter Indwelling Catheter Indwelling Catheter ABP, PAP, CO, CI - Last Documented Arterial Blood Pressure 141/90 - Labs CBC & Chem 7: 06/13/24 05:10 06/13/24 05:10 Labs: Abnormal Lab Results - Last 24 Hours (Table) 06/12/24 06/12/24 06/12/24 Range/Units 04:45 04:45 13:04 RBC (4.30-5.90) m/uL Hgb (13.0-17.5) gm/dL Hct (39.0-53.0) % MCHC (31.0-37.0) g/dL RDW (11.5-15.5) % Lymphocytes # (Manual) (1.0-4.8) k/uL Nucleated RBCs (0-0) /100 WBC ESR 48 H (0-20) mm/Hr APTT (22.0-30.0) sec ABG pH (7.35-7.45) ABG pO2 (83-108) mmHg ABG HCO3 (21-25) mmol/L ABG Total CO2 (19-24) mmol/L Carbon Dioxide (22-30) mmol/L Creatinine (0.66-1.25) mg/dL Glucose (74-99) mg/dL POC Glucose (mg/dL) 121 H (70-110) mg/dL Calcium (8.4-10.2) mg/dL C-Reactive Protein 19.3 H (<1.0) mg/dL 06/12/24 06/13/24 06/13/24 Range/Units 17:42 00:28 05:05 RBC (4.30-5.90) m/uL Hgb (13.0-17.5) gm/dL Hct (39.0-53.0) % MCHC (31.0-37.0) g/dL RDW (11.5-15.5) % Lymphocytes # (Manual) (1.0-4.8) k/uL Nucleated RBCs (0-0) /100 WBC ESR (0-20) mm/Hr APTT (22.0-30.0) sec ABG pH 7.49 H (7.35-7.45) ABG pO2 80 L (83-108) mmHg ABG HCO3 31 H (21-25) mmol/L ABG Total CO2 33 H (19-24) mmol/L Carbon Dioxide (22-30) mmol/L Creatinine (0.66-1.25) mg/dL Glucose (74-99) mg/dL POC Glucose (mg/dL) 128 H 117 H (70-110) mg/dL Calcium (8.4-10.2) mg/dL C-Reactive Protein (<1.0) mg/dL 06/13/24 06/13/24 06/13/24 Range/Units 05:10 05:10 05:10 RBC 3.72 L (4.30-5.90) m/uL Hgb 10.4 L (13.0-17.5) gm/dL Hct 33.8 L (39.0-53.0) % MCHC 30.7 L (31.0-37.0) g/dL RDW 16.5 H (11.5-15.5) % Lymphocytes # (Manual) 0.70 L (1.0-4.8) k/uL Nucleated RBCs 1 H (0-0) /100 WBC ESR (0-20) mm/Hr APTT 58.6 H (22.0-30.0) sec ABG pH (7.35-7.45) ABG pO2 (83-108) mmHg ABG HCO3 (21-25) mmol/L ABG Total CO2 (19-24) mmol/L Carbon Dioxide 31 H (22-30) mmol/L Creatinine 0.37 L (0.66-1.25) mg/dL Glucose 108 H (74-99) mg/dL POC Glucose (mg/dL) (70-110) mg/dL Calcium 8.2 L (8.4-10.2) mg/dL C-Reactive Protein (<1.0) mg/dL 06/13/24 06/13/24 Range/Units 05:11 11:58 RBC (4.30-5.90) m/uL Hgb (13.0-17.5) gm/dL Hct (39.0-53.0) % MCHC (31.0-37.0) g/dL RDW (11.5-15.5) % Lymphocytes # (Manual) (1.0-4.8) k/uL Nucleated RBCs (0-0) /100 WBC ESR (0-20) mm/Hr APTT (22.0-30.0) sec ABG pH (7.35-7.45) ABG pO2 (83-108) mmHg ABG HCO3 (21-25) mmol/L ABG Total CO2 (19-24) mmol/L Carbon Dioxide (22-30) mmol/L Creatinine (0.66-1.25) mg/dL Glucose (74-99) mg/dL POC Glucose (mg/dL) 121 H 146 H (70-110) mg/dL Calcium (8.4-10.2) mg/dL C-Reactive Protein (<1.0) mg/dL Microbiology - Last 24 Hours (Table) 06/09/24 17:52 Anaerobic Culture - Preliminary Other - Other 06/09/24 18:00 Anaerobic Culture - Preliminary Other - Other 06/09/24 18:00 Gram Stain - Final Other - Other Wound Culture - Final Escherichia coli 06/09/24 17:52 Gram Stain - Final Other - Other Wound Culture - Final Escherichia coli
--- NOTE | 2024-06-13 12:41 | P.PN ---
Subjective Progress Note Date: 06/13/24 Principal diagnosis: Hardware failure lumbar spine L2-L3 fracture History of recent [id number] decompression and fusion and open bilateral SI joint fusion Patient seen and examined this morning in the ICU. Patient remains on mechanical ventilation. VSS. Sedation has been discontinued. Patient continues to be obtunded and unable to follow direct commands. Surgical incision to the thoracolumbar spine, Hemovac is present and patent with 70 mL output overnight. Maintain hemovac at half compression. Patient is receiving Vital HP nutrition. Zavala cath remains patent. Continue with Neuro checks and to turn and reposition patient every 2hrs. Objective - Vital Signs Vital signs: Vital Signs Temp 99.2 F 06/13/24 08:00 Pulse 118 H 06/13/24 12:08 Resp 24 06/13/24 11:00 BP 132/86 06/13/24 11:00 Pulse Ox 97 06/13/24 11:00 FiO2 40 06/13/24 11:58 Intake & Output 06/12/24 06/13/24 06/13/24 18:59 06:59 18:59 Intake Total 240.405 2245.037 509.964 Output Total 1260 565 290 Balance -534.555 438.037 219.964 Weight 114.8 kg 114.2 kg Intake: IV 120 130 90 Ertapenem 1 gm In Sodium 50 Chloride 0.9% 50 ml @ 100 mls/hr IVPB DAILY [facility] Rx #:[id number] kvo 120 130 40 Intake, IV Titration 161.445 392.037 204.964 Amount Heparin Sod,Pork in 0.45% 250 171.473 NaCl 25,000 unit In 0.45 % NaCl 1 250ml.bag @ 8.65 UNITS/KG/HR 9.999 mls/hr IV .Q24H [facility] Rx#: [id number] propofoL 1,000 mg In 161.445 142.037 33.491 Empty Bag 1 bag @ 15 MCG/ KG/MIN 10.305 mls/hr IV . Q9H43M [facility] Rx#:[id number] Tube Feeding 444 481 185 Other 30 Output: Drainage 20 Right Back 20 Urine 1260 545 290 Other: Voiding Method Indwelling Catheter Indwelling Catheter Indwelling Catheter ABP, PAP, CO, CI - Last Documented Arterial Blood Pressure 141/90 - Exam Physical Examination General: The patient is on mechanical ventilation, in no acute distress Skin: Skin is warm and dry with no obvious rashes or lesions. Surgical incision to the lumbar spine, Hemovac is present and patent with 70 mL output overnight. Maintain hemovac at half compression. - Labs CBC & Chem 7: 06/13/24 05:10 06/13/24 05:10 Labs: Abnormal Lab Results - Last 24 Hours (Table) 06/12/24 06/12/24 06/12/24 Range/Units 04:45 04:45 13:04 RBC (4.30-5.90) m/uL Hgb (13.0-17.5) gm/dL Hct (39.0-53.0) % MCHC (31.0-37.0) g/dL RDW (11.5-15.5) % Lymphocytes # (Manual) (1.0-4.8) k/uL Nucleated RBCs (0-0) /100 WBC ESR 48 H (0-20) mm/Hr APTT (22.0-30.0) sec ABG pH (7.35-7.45) ABG pO2 (83-108) mmHg ABG HCO3 (21-25) mmol/L ABG Total CO2 (19-24) mmol/L Carbon Dioxide (22-30) mmol/L Creatinine (0.66-1.25) mg/dL Glucose (74-99) mg/dL POC Glucose (mg/dL) 121 H (70-110) mg/dL Calcium (8.4-10.2) mg/dL C-Reactive Protein 19.3 H (<1.0) mg/dL 06/12/24 06/13/24 06/13/24 Range/Units 17:42 00:28 05:05 RBC (4.30-5.90) m/uL Hgb (13.0-17.5) gm/dL Hct (39.0-53.0) % MCHC (31.0-37.0) g/dL RDW (11.5-15.5) % Lymphocytes # (Manual) (1.0-4.8) k/uL Nucleated RBCs (0-0) /100 WBC ESR (0-20) mm/Hr APTT (22.0-30.0) sec ABG pH 7.49 H (7.35-7.45) ABG pO2 80 L (83-108) mmHg ABG HCO3 31 H (21-25) mmol/L ABG Total CO2 33 H (19-24) mmol/L Carbon Dioxide (22-30) mmol/L Creatinine (0.66-1.25) mg/dL Glucose (74-99) mg/dL POC Glucose (mg/dL) 128 H 117 H (70-110) mg/dL Calcium (8.4-10.2) mg/dL C-Reactive Protein (<1.0) mg/dL 06/13/24 06/13/24 06/13/24 Range/Units 05:10 05:10 05:10 RBC 3.72 L (4.30-5.90) m/uL Hgb 10.4 L (13.0-17.5) gm/dL Hct 33.8 L (39.0-53.0) % MCHC 30.7 L (31.0-37.0) g/dL RDW 16.5 H (11.5-15.5) % Lymphocytes # (Manual) 0.70 L (1.0-4.8) k/uL Nucleated RBCs 1 H (0-0) /100 WBC ESR (0-20) mm/Hr APTT 58.6 H (22.0-30.0) sec ABG pH (7.35-7.45) ABG pO2 (83-108) mmHg ABG HCO3 (21-25) mmol/L ABG Total CO2 (19-24) mmol/L Carbon Dioxide 31 H (22-30) mmol/L Creatinine 0.37 L (0.66-1.25) mg/dL Glucose 108 H (74-99) mg/dL POC Glucose (mg/dL) (70-110) mg/dL Calcium 8.2 L (8.4-10.2) mg/dL C-Reactive Protein (<1.0) mg/dL 06/13/24 06/13/24 Range/Units 05:11 11:58 RBC (4.30-5.90) m/uL Hgb (13.0-17.5) gm/dL Hct (39.0-53.0) % MCHC (31.0-37.0) g/dL RDW (11.5-15.5) % Lymphocytes # (Manual) (1.0-4.8) k/uL Nucleated RBCs (0-0) /100 WBC ESR (0-20) mm/Hr APTT (22.0-30.0) sec ABG pH (7.35-7.45) ABG pO2 (83-108) mmHg ABG HCO3 (21-25) mmol/L ABG Total CO2 (19-24) mmol/L Carbon Dioxide (22-30) mmol/L Creatinine (0.66-1.25) mg/dL Glucose (74-99) mg/dL POC Glucose (mg/dL) 121 H 146 H (70-110) mg/dL Calcium (8.4-10.2) mg/dL C-Reactive Protein (<1.0) mg/dL Microbiology - Last 24 Hours (Table) 06/09/24 17:52 Anaerobic Culture - Preliminary Other - Other 06/09/24 18:00 Anaerobic Culture - Preliminary Other - Other 06/09/24 18:00 Gram Stain - Final Other - Other Wound Culture - Final Escherichia coli 06/09/24 17:52 Gram Stain - Final Other - Other Wound Culture - Final Escherichia coli Assessment and Plan Assessment: Postop day 4: Revision [id number] decompression and fusion with T8 kyphoplasty Acute/subacute stroke Multiple complex medical comorbidities Plan: -Appreciate data management consultant and team management. -Activity: Bedrest at this time, Turn and reposition patient q2hrs -Neuro checks every 2 hours -Pain control: Adequate at this time -Meds: reviewed -GI ppx: senna -DVT PPX: TEDs, SCDs, Heparin -Hygiene: Maintain dressing clean and dry. Meticulous cleaning after BMs away from the incision site, surgical dressing will be changed on 06/15/24, with removal of Hemovac drain -Drain Management: Continue to document output every shift. Maintain hemovac at half compression -Encourage IS 10x/hr *I reviewed and discussed this case with my attending Dr. Jeffrey, whom has reviewed this chart and films and is in agreement with assessment and plan of care as outlined above. I have personally seen and examined the patient, performed the documentation and the assessment and plan as written. Number of minutes spent on the visit: 20m.
--- NOTE | 2024-06-13 12:48 | CA ---
Transthoracic Echo Report Name: Kvng Molina Age: 58 Gender: M : 1965 Exam Date: 06/12/2024 14:06 Exam Location: [facility] Ht (in): 68 Wt (lb): 258 Ordering Physician: Lorenzo Lopez MD Attending/Referring Phys: Bilingual Student Tutor Brittany Carreno RDCS Procedure CPT: Indications: R/O thrombus s/p CVA Cardiac Hx: A-FIB, HTN. DM, CVA Technical Quality: Poor, Technically difficult study, Pt supine and on vent Contrast 1: Definity Total Dose (mL): Contrast 2: Total Dose (mL): MEASUREMENTS (Male / Female) Normal Values 2D ECHO LV Diastolic Diameter PLAX 5.5 cm 4.2 - 5.9 / 3.9 - 5.3 cm LV Systolic Diameter PLAX 4.3 cm IVS Diastolic Thickness 1.4 cm 0.6 - 1.0 / 0.6 - 0.9 cm LVPW Diastolic Thickness 1.3 cm 0.6 - 1.0 / 0.6 - 0.9 cm LV Relative Wall Thickness 0.5 RV Internal Dim ED PLAX 2.2 cm LA Systolic Diameter LX 5.6 cm 3.0 - 4.0 / 2.7 - 3.8 cm LV Diastolic Volume MOD BP 73.3 cm??? 67 - 155 / 56 - 104 cm??? LV Systolic Volume MOD BP 46.2 cm??? 22 - 58 / 19 - 49 cm??? LV Ejection Fraction MOD BP 37.0 % >= 55 % LV Cardiac Index MOD BP 1140.7 cm???/min???m??? LV Diastolic Volume MOD 4C 68.5 cm??? LV Systolic Volume MOD 4C 43.7 cm??? LV Ejection Fraction MOD 4C 36.2 % LV Cardiac Index MOD 4C 1044.4 cm???/min???m??? LV Diastolic Length 4C 7.8 cm LV Systolic Length 4C 7.0 cm LV Diastolic Volume MOD 2C 78.2 cm??? LV Systolic Volume MOD 2C 41.1 cm??? LV Ejection Fraction MOD 2C 47.4 % LV Cardiac Index MOD 2C 1560.3 cm???/min???m??? LV Diastolic Length 2C 7.7 cm LV Systolic Length 2C 6.8 cm M-MODE Aortic Root Diameter MM 3.2 cm LA Systolic Diameter MM 4.7 cm LA Ao Ratio MM 1.5 AV Cusp Separation MM 1.6 cm FINDINGS Left Ventricle Left ventricular ejection fraction is estimated at 45 %. Mildly increased septal wall thickness. Mildly decreased left ventricular ejection fraction. No obvious left ventricular thrombus. Right Ventricle Right Atrium Left Atrium Severely increased left atrial diameter. Mitral Valve Aortic Valve Tricuspid Valve Pulmonic Valve Pericardium Aorta CONCLUSIONS Mildly reduced LV systolic function, left atrial enlarged Previewed by: Dr. Michele Silveira MD (Electronically Signed) Final Date: 13 June 2024 12:47
--- NOTE | 2024-06-13 14:13 | P.PN ---
Subjective Progress Note Date: 06/13/24 Principal diagnosis: Reason for follow-up is lumbar surgical site infection ESBL E. coli Patient is a 58-year-old male with a past medical history significant for diabetes mellitus hypertension COPD atrial fibrillation sleep apnea initially presented to hospital with back pain has been diagnosed with L1-L3 fracture status post extensive surgery and surgical cultures came back positive with ESBL E. coli prompted this consultation. On today's evaluation that is 06/13/2024 patient did have a low-grade fever 100.1 this morning and the patient is afebrile since then patient is currently debated on the vent FiO2 is stable at 40% no significant purulent secretions through the ET patient is hemodynamically stable no other changes reported by the nursing staff. Patient white count is 5.4 creatinine 0.37 blood cultures obtained currently pending Objective - Vital Signs Vital signs: Vital Signs Temp 99.2 F 06/13/24 08:00 Pulse 98 06/13/24 10:00 Resp 24 06/13/24 10:00 BP 118/73 06/13/24 10:00 Pulse Ox 96 06/13/24 10:00 FiO2 40 06/13/24 08:00 Intake & Output 06/12/24 06/13/24 06/13/24 18:59 06:59 18:59 Intake Total 453.294 5514.037 509.964 Output Total 1260 565 290 Balance -534.555 438.037 219.964 Weight 114.8 kg 114.2 kg Intake: IV 120 130 90 Ertapenem 1 gm In Sodium 50 Chloride 0.9% 50 ml @ 100 mls/hr IVPB DAILY [facility] Rx #:[id number] kvo 120 130 40 Intake, IV Titration 161.445 392.037 204.964 Amount Heparin Sod,Pork in 0.45% 250 171.473 NaCl 25,000 unit In 0.45 % NaCl 1 250ml.bag @ 8.65 UNITS/KG/HR 9.999 mls/hr IV .Q24H [facility] Rx#: [id number] propofoL 1,000 mg In 161.445 142.037 33.491 Empty Bag 1 bag @ 15 MCG/ KG/MIN 10.305 mls/hr IV . Q9H43M [facility] Rx#:[id number] Tube Feeding 444 481 185 Other 30 Output: Drainage 20 Right Back 20 Urine 1260 545 290 Other: Voiding Method Indwelling Catheter Indwelling Catheter Indwelling Catheter ABP, PAP, CO, CI - Last Documented Arterial Blood Pressure 140/89 - Exam GENERAL DESCRIPTION: Middle-age male intubated on the vent RESPIRATORY SYSTEM: Unlabored breathing , decreased breath sounds at bases HEART: S1 S2 regular rate and rhythm , ABDOMEN: Soft , no tenderness EXTREMITIES: No edema feet - Labs CBC & Chem 7: 06/13/24 05:10 06/13/24 05:10 Labs: Abnormal Lab Results - Last 24 Hours (Table) 06/12/24 06/12/24 06/12/24 Range/Units 04:45 04:45 13:04 RBC (4.30-5.90) m/uL Hgb (13.0-17.5) gm/dL Hct (39.0-53.0) % MCHC (31.0-37.0) g/dL RDW (11.5-15.5) % Lymphocytes # (Manual) (1.0-4.8) k/uL Nucleated RBCs (0-0) /100 WBC ESR 48 H (0-20) mm/Hr APTT (22.0-30.0) sec ABG pH (7.35-7.45) ABG pO2 (83-108) mmHg ABG HCO3 (21-25) mmol/L ABG Total CO2 (19-24) mmol/L Carbon Dioxide (22-30) mmol/L Creatinine (0.66-1.25) mg/dL Glucose (74-99) mg/dL POC Glucose (mg/dL) 121 H (70-110) mg/dL Calcium (8.4-10.2) mg/dL C-Reactive Protein 19.3 H (<1.0) mg/dL 06/12/24 06/13/24 06/13/24 Range/Units 17:42 00:28 05:05 RBC (4.30-5.90) m/uL Hgb (13.0-17.5) gm/dL Hct (39.0-53.0) % MCHC (31.0-37.0) g/dL RDW (11.5-15.5) % Lymphocytes # (Manual) (1.0-4.8) k/uL Nucleated RBCs (0-0) /100 WBC ESR (0-20) mm/Hr APTT (22.0-30.0) sec ABG pH 7.49 H (7.35-7.45) ABG pO2 80 L (83-108) mmHg ABG HCO3 31 H (21-25) mmol/L ABG Total CO2 33 H (19-24) mmol/L Carbon Dioxide (22-30) mmol/L Creatinine (0.66-1.25) mg/dL Glucose (74-99) mg/dL POC Glucose (mg/dL) 128 H 117 H (70-110) mg/dL Calcium (8.4-10.2) mg/dL C-Reactive Protein (<1.0) mg/dL 06/13/24 06/13/24 06/13/24 Range/Units 05:10 05:10 05:10 RBC 3.72 L (4.30-5.90) m/uL Hgb 10.4 L (13.0-17.5) gm/dL Hct 33.8 L (39.0-53.0) % MCHC 30.7 L (31.0-37.0) g/dL RDW 16.5 H (11.5-15.5) % Lymphocytes # (Manual) 0.70 L (1.0-4.8) k/uL Nucleated RBCs 1 H (0-0) /100 WBC ESR (0-20) mm/Hr APTT 58.6 H (22.0-30.0) sec ABG pH (7.35-7.45) ABG pO2 (83-108) mmHg ABG HCO3 (21-25) mmol/L ABG Total CO2 (19-24) mmol/L Carbon Dioxide 31 H (22-30) mmol/L Creatinine 0.37 L (0.66-1.25) mg/dL Glucose 108 H (74-99) mg/dL POC Glucose (mg/dL) (70-110) mg/dL Calcium 8.2 L (8.4-10.2) mg/dL C-Reactive Protein (<1.0) mg/dL 06/13/24 Range/Units 05:11 RBC (4.30-5.90) m/uL Hgb (13.0-17.5) gm/dL Hct (39.0-53.0) % MCHC (31.0-37.0) g/dL RDW (11.5-15.5) % Lymphocytes # (Manual) (1.0-4.8) k/uL Nucleated RBCs (0-0) /100 WBC ESR (0-20) mm/Hr APTT (22.0-30.0) sec ABG pH (7.35-7.45) ABG pO2 (83-108) mmHg ABG HCO3 (21-25) mmol/L ABG Total CO2 (19-24) mmol/L Carbon Dioxide (22-30) mmol/L Creatinine (0.66-1.25) mg/dL Glucose (74-99) mg/dL POC Glucose (mg/dL) 121 H (70-110) mg/dL Calcium (8.4-10.2) mg/dL C-Reactive Protein (<1.0) mg/dL Microbiology - Last 24 Hours (Table) 06/09/24 17:52 Anaerobic Culture - Preliminary Other - Other 06/09/24 18:00 Anaerobic Culture - Preliminary Other - Other 06/09/24 18:00 Gram Stain - Final Other - Other Wound Culture - Final Escherichia coli 06/09/24 17:52 Gram Stain - Final Other - Other Wound Culture - Final Escherichia coli Assessment and Plan (1) Surgical site infection Current Visit: Yes Status: Acute Code(s): T81.49XA - INFECTION FOLLOWING A PROCEDURE, OTHER SURGICAL SITE, INIT SNOMED Code(s): 84798686 (2) Infection due to ESBL-producing Escherichia coli Current Visit: Yes Status: Acute Code(s): A49.8 - OTHER BACTERIAL INFECTIONS OF UNSPECIFIED SITE; Z16.12 - EXTENDED SPECTRUM BETA LACTAMASE (ESBL) RESISTANCE SNOMED Code(s): 542137634 Plan: 1patient presented to the hospital with back pain more than a week ago from initial evaluation in this patient who did have extensive lumbosacral spine surgery now has been taken back to the OR noticed to have hardware failure fracture of the vertebra s/p redo surgery and culture which are now growing gram-negative and has been finalized as ESBL E. coli 2-di patient to continue with Invanz 1 g daily and we will follow-up on the blood culture to make sure patient not bacteremic Dictation was produced using [employer] dictation software. please excuse any gramma tical, word or spelling errors. Time with Patient: Less than 30
[2024-06-13 17:46] LABS: Glucose,Whole Blood 107 mg/dL (70-110)
[2024-06-13] MEDS: GENTAMICIN PER PHARMACY MISCELLANE SCH (19:37)
[2024-06-13] MEDS: AMPICILLIN-SULBACTAM 1.5 GM in SODIUM CHLORIDE 0.9% 50 ML IVPB SCH (19:37)
[2024-06-14 00:05] LABS: Glucose,Whole Blood 117 mg/dL (70-110)
[2024-06-14 05:06] LABS: ABG HCO3 31 mmol/L (21-25); ABG PCO2 41 mmHg (35-45); ABG PH 7.49 (7.35-7.45); ABG PO2 75 mmHg (83-108); ABG TCO2 32 mmol/L (19-24)
[2024-06-14 05:17] LABS: Anisocytosis Slight; HCT 34.6 % (39.0-53.0); HGB 10.8 gm/dL (13.0-17.5); Hypochromasia Marked; MCH 28.2 pg (25.0-35.0); MCHC 31.3 g/dL (31.0-37.0); MCV 90.3 fL (80.0-100.0); Mean Platelet Volume 7.4; Platelet Count 370 k/uL (150-450); Poikilocytosis Slight; RBC 3.83 m/uL (4.30-5.90); RDW 16.4 % (11.5-15.5)
[2024-06-14 05:31] LABS: African American GFR (CKD) >90 (>60 ml/min/1.73 sqM); Anion Gap 4 mmol/L; Blood Urea Nitrogen 18 mg/dL (9-20); Calcium 8.5 mg/dL (8.4-10.2); Carbon Dioxide 27 mmol/L (22-30); Chloride 107 mmol/L (98-107); Glucose 111 mg/dL (74-99); Magnesium 1.9 mg/dL (1.6-2.3); Non-African American GFR(CKD) >90 (>60 ml/min/1.73 sqM); Potassium 3.8 mmol/L (3.5-5.1); Sodium 138 mmol/L (137-145)
[2024-06-14 05:41] LABS: Allen Test Performed? no
[2024-06-14 05:50] LABS: Glucose,Whole Blood 133 mg/dL (70-110)
[2024-06-14] MEDS: POTASSIUM BICARBONATE/CIT AC 20 MEQ TABLET.EFF NG-TUBE SCH (05:51)
--- NOTE | 2024-06-14 06:56 | CT ---
EXAMINATION TYPE: CT brain wo con CT DLP: 1227.2 mGycm, Automated exposure control for dose reduction was used. DATE OF EXAM: 06/14/2024 4:06 AM COMPARISON: 06/12/2024. CLINICAL INDICATION:Male, 58 years old with history of stroke. Rule out hemorrhagic conversion, stro ke. Rule out hemorrhagic conversion TECHNIQUE: Brain: Axial CT images of the brain were obtained with coronal and sagittal reformats created and rev iewed. Contrast used: None. Oral contrast used: None. FINDINGS: Brain: Extra-axial spaces: No abnormal extra-axial fluid collections. Ventricular system: Within normal limits Cerebral parenchyma: Left MCA territory involving stroke predominantly involving the frontal lobe. No acute intraparenchymal hemorrhage or mass effect. The remainder of the petersen-white junctions are wel l differentiated. Cerebellum: Unremarkable. Mass effect: No evidence of midline shift. Intracranial vasculature: unremarkable Soft tissues: Normal. Calvarium/osseous structures: No depressed skull fracture. Paranasal sinuses and mastoid air cells: Mild scattered paranasal sinus disease. Visualized orbits: Orbital contents are intact. IMPRESSION: Left MCA territory evolving acute/subacute CVA. No evidence for hemorrhagic conversion.
--- NOTE | 2024-06-14 06:59 | XR ---
EXAMINATION TYPE: XR chest 1V portable DATE OF EXAM: 06/14/2024 4:52 AM CLINICAL INDICATION:Male, 58 years old with history of vented; [facility] COMPARISON: Chest radiograph from one day prior. TECHNIQUE: XR chest 1V portable Frontal view of the chest. FINDINGS: Lungs/Pleura: There is no evidence of pleural effusion, focal consolidation, or pneumothorax. Pulmonary vascularity: Unremarkable. Heart/mediastinum: Cardiomediastinal silhouette is enlarged and stable. Musculoskeletal: No acute osseous pathology. There is spine fixation hardware is present. Other findings: None Lines/Tubes: Endotracheal tube with distal tip 5.6 cm above the shashank. Nasogastric tube with its distal tip and side-port projecting under the diaphragm. IMPRESSION: Stable support tubes.
--- NOTE | 2024-06-14 09:39 | P.PN ---
Subjective Progress Note Date: 06/14/24 Principal diagnosis: CVA. Patient is a 58-year-old white male with past medical history significant for obstructive sleep apnea with home CPAP, COPD, ex tobacco smoker, marijuana smoker, atrial fibrillation with previous cardioversion and anticoagulated on Xarelto, diabetes mellitus, hypertension, heart failure, and previous spinal surgeries. His primary care provider is Dr. Deuce Brito. He is currently intubated to the mechanical ventilator, unable to provide any information for HPI. Of note, patient recently underwent an L2 to pelvis posterior lateral decompression and fusion on 05/19/2024 at [facility]. During this admission, he initially was recovered in the intensive care unit. Technically, difficult to extubate, and did require BiPAP support immediately after extubation. He was eventually discharged home on 05/26/2024. Patient returned the emergency department on 06/06/2024. On review of the ER documentation, he had a fall while at home. CT of the lumbar spine demonstrated new compression fracture of L2 vertebral body with compression of the vertebral body down to the pedicle screws bilaterally and loosening the left pedicle screw. New left pedicle/transverse process of L2 and L3 fractures around the hardware with mild displacement. Fractures of the right transverse process of L2 and L3. Likely postsurgical subcutaneous gas in the surgical bed. Patient underwent revision thoracic T10 to pelvis decompression fusion yesterday. Intraoperatively, patient had an EBL of 1 L. He has received a total of 5 units of PRBCs, 1 FFP, and 1 pack platelets. He was sent to the intensive care unit postoperatively. He remains on the mechanical ventilator. Chest x-ray shows the endotracheal tube approximately 4.3 cm above the shashank. There is cardiomegaly with pulmonary vascular congestion suggested. No pleural effusions, pneumothoraces, focal consolidations. Initial ABG had a PaO2 of 80, pCO2 of 61, pH of 7.27. This was done on original ventilator settings of assist-control, respiratory rate 14, tidal volume 500, FiO2 1 9%, and PEEP of 5. My supervising physician is already increased the patient's respiratory rate to 20. He is currently synchronous with mechanical ventilator. There is a moderate amount of clear to white endotracheal secretions. Peak pressures 23. He is sedated with propofol which is currently infusing at 50 mcg/kg/min. He is fairly unarousable. Will withdraw to painful stimuli in all 4 extremities. There is also norepinephrine infusing at 0.02 mcg/kg/min. There is a MAP goal of 80 mmHg to support [employer] perfusion. LR is infusing at 10 MLS per hour. There is a Hemovac with a total of 220 serosanguineous output since surgery. We are awaiting postoperative labs. Preoperatively, CBC: WBC count 9.4, hemoglobin 9.6, hematocrit 32.5, platelets 516. Preoperative CMP: Sodium 137, potassium 4.1, chloride 104, serum bicarb 27, BUN 18, creatinine 0.61, glucose 143. LFTs unremarkable. Receiving prophylactic cefazolin. Note that preoperatively, patient did have a cardiac evaluation. Repeat echocardiogram shows a severely reduced left ventricular ejection fraction of 25 to 30% as well as mild mitral and tricuspid regurgitation. Heart rhythm is atrial fibrillation with controlled ventricular response. Normally anticoagulated on Xarelto, however, this is on hold for surgery. Progress note dated June 11, 2024. 58-year-old male recently had additional back surgery, including a T10 to pelvic decompression and fusion. Please see my consultation from yesterday. Today is postop day #2. The patient was brought back to the ICU on the ventilator. Will be woke him up for the daily interruption of sedation yesterday, it was noted that he was not moving his right side. He was sent for an immediate CT scan without contrast. It showed a subacute left frontoparietal CVA. It was isch emic in nature. He remains on mechanical ventilator. He is on volume assist- control, rate 20, tidal line 500, FiO2 50% to be dropped down to 40%, and PEEP of 5. Blood gases show pO2 118, pCO2 37, pH is 7.47. The patient is taking propofol at 50 mcg/kg/min, saline at KVO norepinephrine at 2 mcg/min IV heparin, and vital HP at 20 cc an hour with a goal of 37 cc. White count 8.9, hemoglobin 10, hematocrit 32.3, platelet count 262,000. PTT is 36.6. Sodium 136, potassium 4.2, chlorides 105, CO2 24, BUN 14, creatinine 0.37. Glucose is 138. Hemoglobin A1c is 6.6. Chest x-ray is essentially within normal range today for cardiomegaly. Progress note dated June 12, 2024. 58-year-old male seen again in room 255. The patient remains on mechanical ventilation. He is on volume assist-control, rate 20, tidal volume 500, FiO2 40%, PEEP of 5. Blood gases show pO2 of 80, pCO2 41, pH is 7.49. This blood gases consistent with metabolic alkalosis. The patient is on propofol at 25 mcg/kg/min, heparin via weight-based protocol, and vital HP at 37 cc an hour, which is goal. The patient had evidence of E. coli from the wound culture, the Escherichia coli is ESBL E. coli. For that reason he is on ertapenem. We will attempt a daily interruption of sedation. The patient did poorly with this holiday yesterday. His mental status was poor, but he still has increased secretions. He may eventually need tracheostomy and PEG tube placement. White count 5.4, hemoglobin 10.4, hematocrit 33.8, platelet count 338,000. PTT is 58.6. Sodium 139, potassium 3.5, chlorides 107, CO2 31, BUN 17, creatinine 0.37. Glucose is 108. Calcium 8.2. Chest x-ray shows a pattern of pulmonary vascular congestion, and bilateral effusions. Progress note dated June 14, 2024. 58-year-old male seen again in room 255. The patient remains on mechanical ventilation, and has done very poorly with his sedation holidays. He may end up with a tracheostomy and peg tube placement. Currently, he is on volume assist- control, rate 20, tidal volume 500, FiO2 40%, PEEP of 5. Blood gases show pO2 of 75, pCO2 of 41, pH is 7.49. He is getting saline at KVO, propofol at 20 mcg/kg/min, and IV heparin. He is on vital high-protein at 37 cc an hour, which is goal. He is also getting ertapenem, for an ESBL E. coli wound infection. Labs include a white count of 6, hemoglobin 10.8, hematocrit 34.6, and a hemant telet count of 370,000. Sodium 138, potassium 3.8, chlorides 107, CO2 27, BUN 18, and creatinine 0.35. Glucose is 133. Calcium 8.5. Magnesium 1.9. Chest x-ray shows unchanged chest x-ray with stable tubes and lines. Brain CT shows left MCA territory involving acute/subacute CVA, with no evidence for hemorrhagic conversion. Objective - Vital Signs Vital signs: Vital Signs Temp 99.6 F 06/14/24 04:00 Pulse 96 06/14/24 08:32 Resp 22 06/14/24 07:00 BP 120/90 06/14/24 07:00 Pulse Ox 94 L 06/14/24 07:00 FiO2 40 06/14/24 08:06 Intake & Output 06/13/24 06/14/24 06/14/24 18:59 06:59 18:59 Intake Total 164.051 1142.731 187.250 Output Total 780 945 50 Balance 187.763 125.731 137.250 Weight 114.4 kg Intake: IV 160 120 10 Ertapenem 1 gm In Sodium 50 Chloride 0.9% 50 ml @ 100 mls/hr IVPB DAILY [facility] Rx #:[id number] kvo 110 120 10 Intake, IV Titration 273.763 436.731 140.250 Amount Heparin Sod,Pork in 0.45% 171.473 336.731 58.039 NaCl 25,000 unit In 0.45 % NaCl 1 250ml.bag @ 8.65 UNITS/KG/HR 9.999 mls/hr IV .Q24H [facility] Rx#: [id number] propofoL 1,000 mg In 102.290 100 82.211 Empty Bag 1 bag @ 15 MCG/ KG/MIN 10.305 mls/hr IV . Q9H43M [facility] Rx#:[id number] Tube Feeding 444 444 37 Other 90 70 Output: Drainage 20 Right Back 20 Urine 780 925 50 Other: Voiding Method Indwelling Catheter Indwelling Catheter ABP, PAP, CO, CI - Last Documented Arterial Blood Pressure 119/68 - Exam No acute distress, sedated, with an orally placed endotracheal tube. HEENT examination is grossly unremarkable. Mucous membranes are moist. No oral lesions. Neck supple. Full range of motion. No adenopathy thyromegaly or neck vein distention. Cardiovascular examination reveals regular rhythm rate. S1-S2 normal. No S3 or S4. No discernible murmur noted. Heart rate 96 bpm. Lungs reveal mostly clear breath sounds. Minimal scattered rhonchi. No wheezes or crackles. Breath sounds equal. Saturations are 97 %. Abdomen soft bowel sounds are heard. No masses or tenderness. Extremities are intact. No cyanosis clubbing or edema. Skin is without rash or lesion. Neurologic examination cannot be assessed at this time. - Labs CBC & Chem 7: 06/14/24 04:57 06/14/24 04:57 Labs: Abnormal Lab Results - Last 24 Hours (Table) 06/13/24 06/14/24 06/14/24 Range/Units 11:58 00:04 04:57 RBC (4.30-5.90) m/uL Hgb (13.0-17.5) gm/dL Hct (39.0-53.0) % RDW (11.5-15.5) % APTT 43.8 H (22.0-30.0) sec ABG pH (7.35-7.45) ABG pO2 (83-108) mmHg ABG HCO3 (21-25) mmol/L ABG Total CO2 (19-24) mmol/L Creatinine (0.66-1.25) mg/dL Glucose (74-99) mg/dL POC Glucose (mg/dL) 146 H 117 H (70-110) mg/dL 06/14/24 06/14/24 06/14/24 Range/Units 04:57 04:57 05:04 RBC 3.83 L (4.30-5.90) m/uL Hgb 10.8 L (13.0-17.5) gm/dL Hct 34.6 L (39.0-53.0) % RDW 16.4 H (11.5-15.5) % APTT (22.0-30.0) sec ABG pH 7.49 H (7.35-7.45) ABG pO2 75 L (83-108) mmHg ABG HCO3 31 H (21-25) mmol/L ABG Total CO2 32 H (19-24) mmol/L Creatinine 0.35 L (0.66-1.25) mg/dL Glucose 111 H (74-99) mg/dL POC Glucose (mg/dL) (70-110) mg/dL 06/14/24 Range/Units 05:49 RBC (4.30-5.90) m/uL Hgb (13.0-17.5) gm/dL Hct (39.0-53.0) % RDW (11.5-15.5) % APTT (22.0-30.0) sec ABG pH (7.35-7.45) ABG pO2 (83-108) mmHg ABG HCO3 (21-25) mmol/L ABG Total CO2 (19-24) mmol/L Creatinine (0.66-1.25) mg/dL Glucose (74-99) mg/dL POC Glucose (mg/dL) 133 H (70-110) mg/dL Microbiology - Last 24 Hours (Table) 06/12/24 17:40 Blood Culture - Preliminary Blood Assessment and Plan Assessment: Status post fall, with L2 vertebral body compression fracture, L2-L3 right-sided transverse process fractures, and L2-L3 left-sided pedicle/transverse process fractures. Status postoperative day #4 following a revision T10 to pelvis decompression and fusion with stabilization. Routine postoperative mechanical ventilator management. ESBL Escherichia coli wound infection. Recent L2 to pelvis posterior lateral decompression and fusion on 05/19/2024. Acute blood loss anemia, patient has received a total of 5 units of PRBCs perioperatively, 1 pack platelets, and is going to receive 1 unit FFP. Hypotension, resolved. Heart failure with reduced ejection fraction. Chronic atrial fibrillation. History of hypertension. History of hyperlipidemia. History of diabetes mellitus. Obesity, with a BMI of 38.4 kg/m. History of obstructive sleep apnea. Chronic obstructive pulmonary disease, stable. Former tobacco smoker. Remote history of prior C2-T2 Decompression and fusion. Plan: Plan dated June 11, 2024. The patient remains in the intensive care unit, on the mechanical ventilator. The patient did not do well yesterday with his daily interruption of sedation. It will be tried again today. The patient's FiO2 was reduced from 50%, down to 40%. The pO2 on the blood gas was 118. The patient continues on propofol at 50 mcg/kg/min, saline at KVO, and norepinephrine at 2 mcg/min. The patient is also receiving IV heparin via weight-based protocol, and vital high-protein, at 20 cc an hour, with a goal of 37 cc. The patient was discovered to have a left frontal parietal CVA, which is thought to be subacute. He is postop day #2. Labs, x-rays, and all medications are reviewed. Plan dated June 13, 2024. The patient remains in the intensive care unit. Yesterday, he did poorly with his sedation holiday. He has lots of airway secretions, and his mental status was poor. For that reason, he was resedated. We will attempt another sedation holiday today. The wound cultures, from his back, show evidence of ESBL Escherichia coli. For that reason he is on ertapenem. He continues on propofol at 25 mcg/kg/min, heparin via weight-based protocol, and vital HP at 37 cc an hour which is goal. Blood gases show pO2 of 80, pCO2 41, pH is 7.49. This blood gases consistent with metabolic alkalosis. Labs, x-rays, and medications are reviewed. The patient's overall prognosis remains guarded. We will continue to follow make recommendations along the way. Plan dated June 14, 2024. Unfortunately, every time we do a sedation holiday, the patient's neurologic status, does not improve. The patient also has lots of airway secretions. Anyway, today, the patient will not have a daily interruption of sedation. He continues on ertapenem for his ESBL Escherichia coli wound infection. He is getting nourished with vital high-protein at 37 cc an hour which is goal. He continues on IV heparin. The most recent brain CT is reviewed. The patient is on propofol at 20 mcg/kg/min. Blood gases showed metabolic alkalosis. We will continue to follow make recommendations along the way. The patient may need a tracheostomy and PEG tube placement, should he not show any additional improvement. Time with Patient: Greater than 30
--- NOTE | 2024-06-14 11:42 | P.PN ---
Subjective Progress Note Date: 06/14/24 I am following up with the patient and according to the nurse she feels that there is a lack of cooperation the patient presents with. She stated that he will open his eyes but when he is asked to do a task he will just closes eyes and turn his head to the other side. I notified the nurse that I had that experience with him yesterday as well. Otherwise no new neurological issues. Objective - Vital Signs Vital signs: Vital Signs Temp 99.3 F 06/14/24 08:00 Pulse 84 06/14/24 11:00 Resp 5 L 06/14/24 11:00 BP 94/71 06/14/24 11:00 Pulse Ox 98 06/14/24 11:00 FiO2 40 06/14/24 08:06 Intake & Output 06/13/24 06/14/24 06/14/24 18:59 06:59 18:59 Intake Total 066.048 8335.731 455.250 Output Total 780 945 475 Balance 187.763 125.731 -19.750 Weight 114.4 kg Intake: IV 160 120 100 Ertapenem 1 gm In Sodium 50 50 Chloride 0.9% 50 ml @ 100 mls/hr IVPB DAILY [facility] Rx #:[id number] kvo 110 120 50 Intake, IV Titration 273.763 436.731 140.250 Amount Heparin Sod,Pork in 0.45% 171.473 336.731 58.039 NaCl 25,000 unit In 0.45 % NaCl 1 250ml.bag @ 8.65 UNITS/KG/HR 9.999 mls/hr IV .Q24H [facility] Rx#: [id number] propofoL 1,000 mg In 102.290 100 82.211 Empty Bag 1 bag @ 15 MCG/ KG/MIN 10.305 mls/hr IV . Q9H43M [facility] Rx#:[id number] Tube Feeding 444 444 185 Other 90 70 30 Output: Drainage 20 Right Back 20 Urine 780 925 475 Other: Voiding Method Indwelling Catheter Indwelling Catheter Indwelling Catheter ABP, PAP, CO, CI - Last Documented Arterial Blood Pressure 102/62 - Exam General: Lying in bed and does not appear in acute distress. Respiratory: Intubated on ventilator. Neuro: Limited. Patient is on IV Propofol 20mcg/kg/min Patient would open his eyes upon trying to examine him and then he would close immediately and will turn his head to the other side and not interested in examination. He moves the left side spontaneously. No movement of the right side. Some of the other workup during this hospital visit consisted of: Lipid panel is triglyceride 68, cholesterol is 56, LDL is 18 and HDL is 23 Hemoglobin A1c 6.6. The echo on 06/08/2024 is reported as ejection fraction of [address] head is reported as finding of acute/subacute CVA involving the left frontal parietal region. CTA head and neck is read as no significant diameter reduction to account for the patient's symptoms. Area of hypoattenuation as described on the prior CT brain left frontal parietal region compatible with a finding of acute/subacute CVA. Repeat CT head today in morning: Ongoing evolution of acute to subacute infarct over latral left frontal and parietal region with greater degree of hypodensity. Similar sulcal effacement. Minimal righward midline shift of 4mm vs 3mm measure on 06/10/24. No hemorrhagic transformation. Wound culture is positive for ESBL E. coli. Limited 2D echo was reported as mild reduced left ventricle systolic function left atrial enlargement. Most recent repeat CT of the head on 06/14/2024 is reported as left MCA territory evolving acute/subacute CVA. No evidence for hemorrhagic conversion. I personally reviewed the CT and I agree with the report. - Labs CBC & Chem 7: 06/14/24 04:57 06/14/24 04:57 Labs: Abnormal Lab Results - Last 24 Hours (Table) 06/13/24 06/14/24 06/14/24 Range/Units 11:58 00:04 04:57 RBC (4.30-5.90) m/uL Hgb (13.0-17.5) gm/dL Hct (39.0-53.0) % RDW (11.5-15.5) % APTT 43.8 H (22.0-30.0) sec ABG pH (7.35-7.45) ABG pO2 (83-108) mmHg ABG HCO3 (21-25) mmol/L ABG Total CO2 (19-24) mmol/L Creatinine (0.66-1.25) mg/dL Glucose (74-99) mg/dL POC Glucose (mg/dL) 146 H 117 H (70-110) mg/dL 06/14/24 06/14/24 06/14/24 Range/Units 04:57 04:57 05:04 RBC 3.83 L (4.30-5.90) m/uL Hgb 10.8 L (13.0-17.5) gm/dL Hct 34.6 L (39.0-53.0) % RDW 16.4 H (11.5-15.5) % APTT (22.0-30.0) sec ABG pH 7.49 H (7.35-7.45) ABG pO2 75 L (83-108) mmHg ABG HCO3 31 H (21-25) mmol/L ABG Total CO2 32 H (19-24) mmol/L Creatinine 0.35 L (0.66-1.25) mg/dL Glucose 111 H (74-99) mg/dL POC Glucose (mg/dL) (70-110) mg/dL 06/14/24 Range/Units 05:49 RBC (4.30-5.90) m/uL Hgb (13.0-17.5) gm/dL Hct (39.0-53.0) % RDW (11.5-15.5) % APTT (22.0-30.0) sec ABG pH (7.35-7.45) ABG pO2 (83-108) mmHg ABG HCO3 (21-25) mmol/L ABG Total CO2 (19-24) mmol/L Creatinine (0.66-1.25) mg/dL Glucose (74-99) mg/dL POC Glucose (mg/dL) 133 H (70-110) mg/dL Microbiology - Last 24 Hours (Table) 06/12/24 17:40 Blood Culture - Preliminary Blood Assessment and Plan Assessment: Is a 58-year-old gentleman with history of atrial fibrillation status post cardioversion on Xarelto, diabetes mellitus, heart failure, cervical myelopathy, back pain and had recent L2 to pelvis decompression and fusion of bilateral open SI joint on 05/19/2024 who had a recent fall with back pain. Patient yesterday had L2-L3 fracture and has hardware failure of the thoracic spine to pelvis. 3 the patient had L1-L2 and L3 revision T10 to pelvis posterior lateral instrumented fusion with hardware removal. His Xarelto was held 48 hours and it seems last dose was on 06/08/2024 per the nurse. Today when the sedation was held the patient was not moving the right side and CT of the head shows acute to subacute over the left frontal parietal region. Acute to subacute stroke (seems more subacute) over the left frontal parietal region (from limited examination has right hemiparesis on examination, not following commands but would open his eyes and upon examine him he would close them and turns his head to other side and not cooperating for examination). Stroke seems more embolic especially with a history of A-fib and anticoagulation held for 48 hours because of cervical surgery. On repeat CT head has evolution of the stroke over the left fronto/parietal region with mild midline shift and no hemorrhagic conversion. Most recent CT head on 06/14/24 is stable. With mental status due to above, sepsis (Wound culture is positive for ESBL E. coli.) Recent fall with back pain and it seems that the patient has L2-L3 Fracture s/p revision T10 to Pelvis posterior lateral instrument fusion with hardware removal POD#3 Intubated on a ventilator History of atrial fibrillation status post cardioversion and was on Xarelto and the Xarelto was held for the last 48 hours but currently on heparin drip History of cervical myelopathy status post C2-T2 decompression and fusion Recent recent L2 to pelvis decompression and fusion of bilateral open SI joint on 05/19/2024 History of Systolic Heart failure and recent 2D echo on 06/08/24 has EF 25-30% Diabetes mellitus and HbA1c: 6.6 Chronic hypertension History of hyperlipidemia History of obstructive sleep apnea Former tobacco use Plan: Patient is on heparin drip for the A-fib. Pulmonary artery perspective the patient can resume Xarelto. I spoke with the ICU nurse and she stated that per the ICU attending, remain on heparin drip for now for a trach and PEG. Is on Lipitor 40mg qhs which is sufficient for secondary stroke prophylaxis. Continue neurochecks Cardiac monitoring PT OT are consulted Cardiology team is on board Will defer the rest of the medical management to primary and other specialists DVT prophylaxis: On heparin drip Condition is very guarded. Plan discussed with ICU nurse. Dr. Echols will resume neurology service tomorrow A.M. Time with Patient: Less than 30
[2024-06-14 11:45] LABS: Glucose,Whole Blood 124 mg/dL (70-110)
[2024-06-14 17:57] LABS: Glucose,Whole Blood 121 mg/dL (70-110)
--- NOTE | 2024-06-14 19:38 | P.PN ---
Subjective Progress Note Date: 06/14/24 Principal diagnosis: Reason for follow-up is lumbar surgical site infection ESBL E. coli Patient is a 58-year-old male with a past medical history significant for diabetes mellitus hypertension COPD atrial fibrillation sleep apnea initially presented to hospital with back pain has been diagnosed with L1-L3 fracture status post extensive surgery and surgical cultures came back positive with ESBL E. coli prompted this consultation. On today's evaluation that is 06/14/2024,the patient did have a low-grade fever of 100 F yesterday at noon the patient is afebrile since then patient remains to be intubated on the vent FiO2 is currently at 40% no significant purulent secretion through the ET or any other changes reported by the nursing staff tolerating his tube feeds no diarrhea reported. Patient white count 6.0 creatinine 0.35 blood culture has been negative kp erobic culture negative Objective - Vital Signs Vital signs: Vital Signs Temp 99.6 F 06/14/24 04:00 Pulse 96 06/14/24 08:32 Resp 22 06/14/24 07:00 BP 120/90 06/14/24 07:00 Pulse Ox 94 L 06/14/24 07:00 FiO2 40 06/14/24 08:06 Intake & Output 06/13/24 06/14/24 06/14/24 18:59 06:59 18:59 Intake Total 187.883 6307.731 187.250 Output Total 780 945 50 Balance 187.763 125.731 137.250 Weight 114.4 kg Intake: IV 160 120 10 Ertapenem 1 gm In Sodium 50 Chloride 0.9% 50 ml @ 100 mls/hr IVPB DAILY [facility] Rx #:[id number] kvo 110 120 10 Intake, IV Titration 273.763 436.731 140.250 Amount Heparin Sod,Pork in 0.45% 171.473 336.731 58.039 NaCl 25,000 unit In 0.45 % NaCl 1 250ml.bag @ 8.65 UNITS/KG/HR 9.999 mls/hr IV .Q24H [facility] Rx#: [id number] propofoL 1,000 mg In 102.290 100 82.211 Empty Bag 1 bag @ 15 MCG/ KG/MIN 10.305 mls/hr IV . Q9H43M [facility] Rx#:[id number] Tube Feeding 444 444 37 Other 90 70 Output: Drainage 20 Right Back 20 Urine 780 925 50 Other: Voiding Method Indwelling Catheter Indwelling Catheter ABP, PAP, CO, CI - Last Documented Arterial Blood Pressure 119/68 - Exam GENERAL DESCRIPTION: Middle-age male intubated on the vent RESPIRATORY SYSTEM: Unlabored breathing , decreased breath sounds at bases HEART: S1 S2 regular rate and rhythm , ABDOMEN: Soft , no tenderness EXTREMITIES: No edema feet - Labs CBC & Chem 7: 06/14/24 04:57 06/14/24 04:57 Labs: Abnormal Lab Results - Last 24 Hours (Table) 06/13/24 06/14/24 06/14/24 Range/Units 11:58 00:04 04:57 RBC (4.30-5.90) m/uL Hgb (13.0-17.5) gm/dL Hct (39.0-53.0) % RDW (11.5-15.5) % APTT 43.8 H (22.0-30.0) sec ABG pH (7.35-7.45) ABG pO2 (83-108) mmHg ABG HCO3 (21-25) mmol/L ABG Total CO2 (19-24) mmol/L Creatinine (0.66-1.25) mg/dL Glucose (74-99) mg/dL POC Glucose (mg/dL) 146 H 117 H (70-110) mg/dL 06/14/24 06/14/24 06/14/24 Range/Units 04:57 04:57 05:04 RBC 3.83 L (4.30-5.90) m/uL Hgb 10.8 L (13.0-17.5) gm/dL Hct 34.6 L (39.0-53.0) % RDW 16.4 H (11.5-15.5) % APTT (22.0-30.0) sec ABG pH 7.49 H (7.35-7.45) ABG pO2 75 L (83-108) mmHg ABG HCO3 31 H (21-25) mmol/L ABG Total CO2 32 H (19-24) mmol/L Creatinine 0.35 L (0.66-1.25) mg/dL Glucose 111 H (74-99) mg/dL POC Glucose (mg/dL) (70-110) mg/dL 06/14/24 Range/Units 05:49 RBC (4.30-5.90) m/uL Hgb (13.0-17.5) gm/dL Hct (39.0-53.0) % RDW (11.5-15.5) % APTT (22.0-30.0) sec ABG pH (7.35-7.45) ABG pO2 (83-108) mmHg ABG HCO3 (21-25) mmol/L ABG Total CO2 (19-24) mmol/L Creatinine (0.66-1.25) mg/dL Glucose (74-99) mg/dL POC Glucose (mg/dL) 133 H (70-110) mg/dL Microbiology - Last 24 Hours (Table) 06/12/24 17:40 Blood Culture - Preliminary Blood Assessment and Plan (1) Surgical site infection Current Visit: Yes Status: Acute Code(s): T81.49XA - INFECTION FOLLOWING A PROCEDURE, OTHER SURGICAL SITE, INIT SNOMED Code(s): 80746542 (2) Infection due to ESBL-producing Escherichia coli Current Visit: Yes Status: Acute Code(s): A49.8 - OTHER BACTERIAL INFECTIONS OF UNSPECIFIED SITE; Z16.12 - EXTENDED SPECTRUM BETA LACTAMASE (ESBL) RESISTANCE SNOMED Code(s): 760307512 Plan: 1patient presented to the hospital with back pain more than a week ago from initial evaluation in this patient who did have extensive lumbosacral spine surgery now has been taken back to the OR noticed to have hardware failure fracture of the vertebra s/p redo surgery and culture which are now growing gram-negative and has been finalized as ESBL E. coli 2-patient did have resolution of his fever, however will continue with Invanz 1 g daily and monitor clinical course closely Dictation was produced using [employer] dictation software. please excuse any grammatical, word or spelling errors. Time with Patient: Less than 30
[2024-06-15 00:19] LABS: Glucose,Whole Blood 120 mg/dL (70-110)
[2024-06-15 04:21] LABS: ABG Base Excess 7.7 mmol/L; ABG HCO3 32 mmol/L (21-25); ABG PCO2 41 mmHg (35-45); ABG PO2 81 mmHg (83-108); ABG TCO2 33 mmol/L (19-24)
[2024-06-15 04:47] LABS: Anisocytosis Slight; HCT 33.3 % (39.0-53.0); HGB 10.3 gm/dL (13.0-17.5); Hypochromasia Marked; MCH 28.6 pg (25.0-35.0); MCHC 30.9 g/dL (31.0-37.0); MCV 92.8 fL (80.0-100.0); Mean Platelet Volume 7.5; Platelet Count 344 k/uL (150-450); Poikilocytosis Slight; RBC 3.59 m/uL (4.30-5.90); RDW 16.5 % (11.5-15.5); WBC 5.8 k/uL (3.8-10.6)
[2024-06-15 04:57] LABS: Allen Test Performed? no
[2024-06-15 05:25] LABS: Glucose,Whole Blood 125 mg/dL (70-110)
[2024-06-15 05:56] LABS: African American GFR (CKD) >90 (>60 ml/min/1.73 sqM); Anion Gap 5 mmol/L; Blood Urea Nitrogen 19 mg/dL (9-20); Calcium 8.2 mg/dL (8.4-10.2); Carbon Dioxide 26 mmol/L (22-30); Chloride 106 mmol/L (98-107); Glucose 112 mg/dL (74-99); Non-African American GFR(CKD) >90 (>60 ml/min/1.73 sqM); Sodium 137 mmol/L (137-145)
[2024-06-15 05:58] LABS: Magnesium 1.8 mg/dL (1.6-2.3)
[2024-06-15] MEDS: MAGNESIUM SULFATE-D5W PMX 1 GM in DEXTROSE/WATER 1 100ML.BAG IVPB ONE (06:43)
--- NOTE | 2024-06-15 07:44 | XR ---
EXAMINATION TYPE: XR chest 1V portable DATE OF EXAM: 06/15/2024 COMPARISON: 06/14/2024 HISTORY: SOB, Follow Up FINDINGS: Indwelling tubes and catheters are unchanged. Stable scattered infiltrates and pulmonary venous congestion. Stable appearance of the cardio-mediastinal structures at this time. Pleural effusion unchanged. IMPRESSION: 1. Stable portable chest. Clinical correlation and follow up until resolution is recommended.
--- NOTE | 2024-06-15 09:03 | P.PN ---
Subjective Progress Note Date: 06/15/24 Principal diagnosis: Hardware failure lumbar spine L2-L3 fracture History of recent [id number] decompression and fusion and open bilateral SI joint fusion Patient seen and examined this morning in the ICU. Patient remains on mechanical ventilation. VSS. There has been no changes in patients mentation status. Dr. Lopez has reported that patient will be scheduled for PEG tube and Tracheostomy placement. Surgical incision to the thoracolumbar spine, edges are well approximated with sutres intact. Scant amount of sanguineous drainage from inferior region of the incision during dressing change. Healing well. Hemovac drain has been removed. New dressing applied. Patient is receiving Vital HP nutrition. Zavala cath remains patent. Continue with Neuro checks and to turn and reposition patient every 2hrs to decrease pressure on wound and allow air to his back. Objective - Vital Signs Vital signs: Vital Signs Temp 98.5 F 06/15/24 04:00 Pulse 96 06/15/24 07:36 Resp 20 06/15/24 07:00 BP 120/76 06/15/24 07:00 Pulse Ox 97 06/15/24 07:00 FiO2 40 06/15/24 07:19 Intake & Output 06/14/24 06/15/24 06/15/24 18:59 06:59 18:59 Intake Total 1122.873 997.763 10 Output Total 955 548 45 Balance 167.873 449.763 -35 Weight 114.8 kg Intake: IV 170 120 10 Ertapenem 1 gm In Sodium 50 Chloride 0.9% 50 ml @ 100 mls/hr IVPB DAILY [facility] Rx #:[id number] kvo 120 120 10 Intake, IV Titration 478.873 373.763 Amount Heparin Sod,Pork in 0.45% 308.039 284.911 NaCl 25,000 unit In 0.45 % NaCl 1 250ml.bag @ 8.65 UNITS/KG/HR 9.999 mls/hr IV .Q24H [facility] Rx#: [id number] propofoL 1,000 mg In 170.834 88.852 Empty Bag 1 bag @ 15 MCG/ KG/MIN 10.305 mls/hr IV . Q9H43M [facility] Rx#:[id number] Tube Feeding 444 444 Other 30 60 Output: Drainage 10 Right Back 10 Urine 945 548 45 Other: Voiding Method Indwelling Catheter Indwelling Catheter ABP, PAP, CO, CI - Last Documented Arterial Blood Pressure 104/63 - Exam Physical Examination General: The patient is on mechanical ventilation, bilateral upper extremities are restrained at this time to protect airway and lines. Skin: Skin is warm and dry with no obvious rashes or lesions. Surgical incision to the thoracolumbar spine, edges are well approximated with sutres intact. Scant amount of sanguineous drainage from inferior region of the incision during dressing change. Healing well. Hemovac drain has been removed. New dressing applied. - Labs CBC & Chem 7: 06/15/24 04:30 06/15/24 04:30 Labs: Abnormal Lab Results - Last 24 Hours (Table) 06/14/24 06/14/24 06/14/24 Range/Units 11:43 14:00 17:55 RBC (4.30-5.90) m/uL Hgb (13.0-17.5) gm/dL Hct (39.0-53.0) % MCHC (31.0-37.0) g/dL RDW (11.5-15.5) % APTT 68.5 H (22.0-30.0) sec ABG pH (7.35-7.45) ABG pO2 (83-108) mmHg ABG HCO3 (21-25) mmol/L ABG Total CO2 (19-24) mmol/L Creatinine (0.66-1.25) mg/dL Glucose (74-99) mg/dL POC Glucose (mg/dL) 124 H 121 H (70-110) mg/dL Calcium (8.4-10.2) mg/dL 06/15/24 06/15/24 06/15/24 Range/Units 00:18 04:18 04:30 RBC (4.30-5.90) m/uL Hgb (13.0-17.5) gm/dL Hct (39.0-53.0) % MCHC (31.0-37.0) g/dL RDW (11.5-15.5) % APTT (22.0-30.0) sec ABG pH 7.50 H (7.35-7.45) ABG pO2 81 L (83-108) mmHg ABG HCO3 32 H (21-25) mmol/L ABG Total CO2 33 H (19-24) mmol/L Creatinine 0.34 L (0.66-1.25) mg/dL Glucose 112 H (74-99) mg/dL POC Glucose (mg/dL) 120 H (70-110) mg/dL Calcium 8.2 L (8.4-10.2) mg/dL 06/15/24 06/15/24 06/15/24 Range/Units 04:30 04:30 05:23 RBC 3.59 L (4.30-5.90) m/uL Hgb 10.3 L (13.0-17.5) gm/dL Hct 33.3 L (39.0-53.0) % MCHC 30.9 L (31.0-37.0) g/dL RDW 16.5 H (11.5-15.5) % APTT 73.8 H (22.0-30.0) sec ABG pH (7.35-7.45) ABG pO2 (83-108) mmHg ABG HCO3 (21-25) mmol/L ABG Total CO2 (19-24) mmol/L Creatinine (0.66-1.25) mg/dL Glucose (74-99) mg/dL POC Glucose (mg/dL) 125 H (70-110) mg/dL Calcium (8.4-10.2) mg/dL Microbiology - Last 24 Hours (Table) 06/12/24 17:40 Blood Culture - Preliminary Blood 06/09/24 18:00 Anaerobic Culture - Final Other - Other 06/09/24 17:52 Anaerobic Culture - Final Other - Other Assessment and Plan Assessment: Postop day 6: Revision [id number] decompression and fusion with T8 kyphoplasty Acute/subacute stroke Multiple complex medical comorbidities Plan: -Appreciate student union consultant and team management. -Activity: Bedrest at this time, Turn and reposition patient q2hrs -Neuro checks every 2 hours -Pain control: Adequate at this time -Meds: reviewed -GI ppx: senna -DVT PPX: TEDs, SCDs, Heparin -Hygiene: Maintain dressing clean and dry. Meticulous cleaning after BMs away from the incision site -Encourage IS 10x/hr *I reviewed and discussed this case with my attending Dr. Jeffrey, whom has reviewed this chart and films and is in agreement with assessment and plan of care as outlined above. I have personally seen and examined the patient, performed the documentation and the assessment and plan as written. Number of minutes spent on the visit: 20m.
--- NOTE | 2024-06-15 10:29 | P.PN ---
Subjective Progress Note Date: 06/15/24 Principal diagnosis: CVA. Patient is a 58-year-old white male with past medical history significant for obstructive sleep apnea with home CPAP, COPD, ex tobacco smoker, marijuana smoker, atrial fibrillation with previous cardioversion and anticoagulated on Xarelto, diabetes mellitus, hypertension, heart failure, and previous spinal surgeries. His primary care provider is Dr. Deuce Brito. He is currently intubated to the mechanical ventilator, unable to provide any information for HPI. Of note, patient recently underwent an L2 to pelvis posterior lateral decompression and fusion on 05/19/2024 at [facility]. During this admission, he initially was recovered in the intensive care unit. Technically, difficult to extubate, and did require BiPAP support immediately after extubation. He was eventually discharged home on 05/26/2024. Patient returned the emergency department on 06/06/2024. On review of the ER documentation, he had a fall while at home. CT of the lumbar spine demonstrated new compression fracture of L2 vertebral body with compression of the vertebral body down to the pedicle screws bilaterally and loosening the left pedicle screw. New left pedicle/transverse process of L2 and L3 fractures around the hardware with mild displacement. Fractures of the right transverse process of L2 and L3. Likely postsurgical subcutaneous gas in the surgical bed. Patient underwent revision thoracic T10 to pelvis decompression fusion yesterday. Intraoperatively, patient had an EBL of 1 L. He has received a total of 5 units of PRBCs, 1 FFP, and 1 pack platelets. He was sent to the intensive care unit postoperatively. He remains on the mechanical ventilator. Chest x-ray shows the endotracheal tube approximately 4.3 cm above the shashank. There is cardiomegaly with pulmonary vascular congestion suggested. No pleural effusions, pneumothoraces, focal consolidations. Initial ABG had a PaO2 of 80, pCO2 of 61, pH of 7.27. This was done on original ventilator settings of assist-control, respiratory rate 14, tidal volume 500, FiO2 1 9%, and PEEP of 5. My supervising physician is already increased the patient's respiratory rate to 20. He is currently synchronous with mechanical ventilator. There is a moderate amount of clear to white endotracheal secretions. Peak pressures 23. He is sedated with propofol which is currently infusing at 50 mcg/kg/min. He is fairly unarousable. Will withdraw to painful stimuli in all 4 extremities. There is also norepinephrine infusing at 0.02 mcg/kg/min. There is a MAP goal of 80 mmHg to support [employer] perfusion. LR is infusing at 10 MLS per hour. There is a Hemovac with a total of 220 serosanguineous output since surgery. We are awaiting postoperative labs. Preoperatively, CBC: WBC count 9.4, hemoglobin 9.6, hematocrit 32.5, platelets 516. Preoperative CMP: Sodium 137, potassium 4.1, chloride 104, serum bicarb 27, BUN 18, creatinine 0.61, glucose 143. LFTs unremarkable. Receiving prophylactic cefazolin. Note that preoperatively, patient did have a cardiac evaluation. Repeat echocardiogram shows a severely reduced left ventricular ejection fraction of 25 to 30% as well as mild mitral and tricuspid regurgitation. Heart rhythm is atrial fibrillation with controlled ventricular response. Normally anticoagulated on Xarelto, however, this is on hold for surgery. Progress note dated June 11, 2024. 58-year-old male recently had additional back surgery, including a T10 to pelvic decompression and fusion. Please see my consultation from yesterday. Today is postop day #2. The patient was brought back to the ICU on the ventilator. Will be woke him up for the daily interruption of sedation yesterday, it was noted that he was not moving his right side. He was sent for an immediate CT scan without contrast. It showed a subacute left frontoparietal CVA. It was isch emic in nature. He remains on mechanical ventilator. He is on volume assist- control, rate 20, tidal line 500, FiO2 50% to be dropped down to 40%, and PEEP of 5. Blood gases show pO2 118, pCO2 37, pH is 7.47. The patient is taking propofol at 50 mcg/kg/min, saline at KVO norepinephrine at 2 mcg/min IV heparin, and vital HP at 20 cc an hour with a goal of 37 cc. White count 8.9, hemoglobin 10, hematocrit 32.3, platelet count 262,000. PTT is 36.6. Sodium 136, potassium 4.2, chlorides 105, CO2 24, BUN 14, creatinine 0.37. Glucose is 138. Hemoglobin A1c is 6.6. Chest x-ray is essentially within normal range today for cardiomegaly. Progress note dated June 12, 2024. 58-year-old male seen again in room 255. The patient remains on mechanical ventilation. He is on volume assist-control, rate 20, tidal volume 500, FiO2 40%, PEEP of 5. Blood gases show pO2 of 80, pCO2 41, pH is 7.49. This blood gases consistent with metabolic alkalosis. The patient is on propofol at 25 mcg/kg/min, heparin via weight-based protocol, and vital HP at 37 cc an hour, which is goal. The patient had evidence of E. coli from the wound culture, the Escherichia coli is ESBL E. coli. For that reason he is on ertapenem. We will attempt a daily interruption of sedation. The patient did poorly with this holiday yesterday. His mental status was poor, but he still has increased secretions. He may eventually need tracheostomy and PEG tube placement. White count 5.4, hemoglobin 10.4, hematocrit 33.8, platelet count 338,000. PTT is 58.6. Sodium 139, potassium 3.5, chlorides 107, CO2 31, BUN 17, creatinine 0.37. Glucose is 108. Calcium 8.2. Chest x-ray shows a pattern of pulmonary vascular congestion, and bilateral effusions. Progress note dated June 14, 2024. 58-year-old male seen again in room 255. The patient remains on mechanical ventilation, and has done very poorly with his sedation holidays. He may end up with a tracheostomy and peg tube placement. Currently, he is on volume assist- control, rate 20, tidal volume 500, FiO2 40%, PEEP of 5. Blood gases show pO2 of 75, pCO2 of 41, pH is 7.49. He is getting saline at KVO, propofol at 20 mcg/kg/min, and IV heparin. He is on vital high-protein at 37 cc an hour, which is goal. He is also getting ertapenem, for an ESBL E. coli wound infection. Labs include a white count of 6, hemoglobin 10.8, hematocrit 34.6, and a hemant telet count of 370,000. Sodium 138, potassium 3.8, chlorides 107, CO2 27, BUN 18, and creatinine 0.35. Glucose is 133. Calcium 8.5. Magnesium 1.9. Chest x-ray shows unchanged chest x-ray with stable tubes and lines. Brain CT shows left MCA territory involving acute/subacute CVA, with no evidence for hemorrhagic conversion. Progress note dated June 15, 2024. 58-year-old male seen again in room 255. He remains on mechanical ventilation. He is on volume assist-control, rate 20, tidal line 500, FiO2 40%, PEEP of 5. Blood gases show pO2 of 81, pCO2 41, pH is 7.5. Blood gases are consistent with metabolic alkalosis. He is currently on propofol at 20 mcg/kg/min, heparin via weight-based protocol, saline at KVO, and vital high-protein at 37, which is goal. The patient will have a consult placed to surgery, for tracheostomy and PEG tube placement. His peak airway pressure is 19 cm of water. His plateau pressures 14 cm of water. The patient's airways resistance is 4.63 cmH2O per liters per second. White count is 5.8, hemoglobin 10.3, hematocrit 33.3, platelet count 3 and 44,000. Sodium 137, potassium 4, chloride 106, CO2 26, BUN 19, and creatinine 0.34. Glucose is 125. Calcium 8.2. Wound cultures are positive for ESBL Escherichia coli. Chest x-ray shows scattered bilateral infiltrates, which are unchanged. Objective - Vital Signs Vital signs: Vital Signs Temp 98.5 F 06/15/24 04:00 Pulse 114 H 06/15/24 09:00 Resp 24 06/15/24 09:00 BP 120/85 06/15/24 09:00 Pulse Ox 99 06/15/24 09:00 FiO2 40 06/15/24 07:19 Intake & Output 06/14/24 06/15/24 06/15/24 18:59 06:59 18:59 Intake Total 2194.775 3799.763 150.946 Output Total 955 548 120 Balance 167.873 549.763 30.946 Weight 114.8 kg Intake: IV 170 120 30 Ertapenem 1 gm In Sodium 50 Chloride 0.9% 50 ml @ 100 mls/hr IVPB DAILY [facility] Rx #:[id number] kvo 120 120 30 Intake, IV Titration 478.873 473.763 16.946 Amount Heparin Sod,Pork in 0.45% 308.039 284.911 NaCl 25,000 unit In 0.45 % NaCl 1 250ml.bag @ 8.65 UNITS/KG/HR 9.999 mls/hr IV .Q24H [facility] Rx#: [id number] propofoL 1,000 mg In 170.834 188.852 16.946 Empty Bag 1 bag @ 15 MCG/ KG/MIN 10.305 mls/hr IV . [id number] [facility] Rx#:[id number] Tube Feeding 444 444 74 Other 30 60 30 Output: Drainage 10 Right Back 10 Urine 945 548 120 Other: Voiding Method Indwelling Catheter Indwelling Catheter ABP, PAP, CO, CI - Last Documented Arterial Blood Pressure 115/71 - Exam No acute distress, sedated, with an orally placed endotracheal tube. HEENT examination is grossly unremarkable. Mucous membranes are moist. No oral lesions. Neck supple. Full range of motion. No adenopathy thyromegaly or neck vein distention. Cardiovascular examination reveals regular rhythm rate. S1-S2 normal. No S3 or S4. No discernible murmur noted. Heart rate 100 bpm. Lungs reveal mostly clear breath sounds. Minimal scattered rhonchi. No wheezes or crackles. Breath sounds equal. Saturations are 99 %. Abdomen soft bowel sounds are heard. No masses or tenderness. Extremities are intact. No cyanosis clubbing or edema. Skin is without rash or lesion. Neurologic examination cannot be assessed at this time. - Labs CBC & Chem 7: 06/15/24 04:30 06/15/24 04:30 Labs: Abnormal Lab Results - Last 24 Hours (Table) 06/14/24 06/14/24 06/14/24 Range/Units 11:43 14:00 17:55 RBC (4.30-5.90) m/uL Hgb (13.0-17.5) gm/dL Hct (39.0-53.0) % MCHC (31.0-37.0) g/dL RDW (11.5-15.5) % APTT 68.5 H (22.0-30.0) sec ABG pH (7.35-7.45) ABG pO2 (83-108) mmHg ABG HCO3 (21-25) mmol/L ABG Total CO2 (19-24) mmol/L Creatinine (0.66-1.25) mg/dL Glucose (74-99) mg/dL POC Glucose (mg/dL) 124 H 121 H (70-110) mg/dL Calcium (8.4-10.2) mg/dL 06/15/24 06/15/24 06/15/24 Range/Units 00:18 04:18 04:30 RBC (4.30-5.90) m/uL Hgb (13.0-17.5) gm/dL Hct (39.0-53.0) % MCHC (31.0-37.0) g/dL RDW (11.5-15.5) % APTT (22.0-30.0) sec ABG pH 7.50 H (7.35-7.45) ABG pO2 81 L (83-108) mmHg ABG HCO3 32 H (21-25) mmol/L ABG Total CO2 33 H (19-24) mmol/L Creatinine 0.34 L (0.66-1.25) mg/dL Glucose 112 H (74-99) mg/dL POC Glucose (mg/dL) 120 H (70-110) mg/dL Calcium 8.2 L (8.4-10.2) mg/dL 06/15/24 06/15/24 06/15/24 Range/Units 04:30 04:30 05:23 RBC 3.59 L (4.30-5.90) m/uL Hgb 10.3 L (13.0-17.5) gm/dL Hct 33.3 L (39.0-53.0) % MCHC 30.9 L (31.0-37.0) g/dL RDW 16.5 H (11.5-15.5) % APTT 73.8 H (22.0-30.0) sec ABG pH (7.35-7.45) ABG pO2 (83-108) mmHg ABG HCO3 (21-25) mmol/L ABG Total CO2 (19-24) mmol/L Creatinine (0.66-1.25) mg/dL Glucose (74-99) mg/dL POC Glucose (mg/dL) 125 H (70-110) mg/dL Calcium (8.4-10.2) mg/dL Microbiology - Last 24 Hours (Table) 06/12/24 17:40 Blood Culture - Preliminary Blood 06/09/24 18:00 Anaerobic Culture - Final Other - Other 06/09/24 17:52 Anaerobic Culture - Final Other - Other Assessment and Plan Assessment: Status post fall, with L2 vertebral body compression fracture, L2-L3 right-sided transverse process fractures, and L2-L3 left-sided pedicle/transverse process fractures. Status postoperative day #5 following a revision T10 to pelvis decompression and fusion with stabilization. Routine postoperative mechanical ventilator management. ESBL Escherichia coli wound infection. Recent L2 to pelvis posterior lateral decompression and fusion on 05/19/2024. Acute blood loss anemia, patient has received a total of 5 units of PRBCs perioperatively, 1 pack platelets, and is going to receive 1 unit FFP. Hypotension, resolved. Heart failure with reduced ejection fraction. Chronic atrial fibrillation. History of hypertension. History of hyperlipidemia. History of diabetes mellitus. Obesity, with a BMI of 38.4 kg/m. History of obstructive sleep apnea. Chronic obstructive pulmonary disease, stable. Former tobacco smoker. Remote history of prior C2-T2 Decompression and fusion. Plan: Plan dated June 11, 2024. The patient remains in the intensive care unit, on the mechanical ventilator. The patient did not do well yesterday with his daily interruption of sedation. It will be tried again today. The patient's FiO2 was reduced from 50%, down to 40%. The pO2 on the blood gas was 118. The patient continues on propofol at 50 mcg/kg/min, saline at KVO, and norepinephrine at 2 mcg/min. The patient is also receiving IV heparin via weight-based protocol, and vital high-protein, at 20 cc an hour, with a goal of 37 cc. The patient was discovered to have a left frontal parietal CVA, which is thought to be subacute. He is postop day #2. Labs, x-rays, and all medications are reviewed. Plan dated June 13, 2024. The patient remains in the intensive care unit. Yesterday, he did poorly with his sedation holiday. He has lots of airway secretions, and his mental status was poor. For that reason, he was resedated. We will attempt another sedation holiday today. The wound cultures, from his back, show evidence of ESBL Escherichia coli. For that reason he is on ertapenem. He continues on propofol at 25 mcg/kg/min, heparin via weight-based protocol, and vital HP at 37 cc an hour which is goal. Blood gases show pO2 of 80, pCO2 41, pH is 7.49. This blood gases consistent with metabolic alkalosis. Labs, x-rays, and medications are reviewed. The patient's overall prognosis remains guarded. We will continue to follow make recommendations along the way. Plan dated June 14, 2024. Unfortunately, every time we do a sedation holiday, the patient's neurologic status, does not improve. The patient also has lots of airway secretions. Anyway, today, the patient will not have a daily interruption of sedation. He continues on ertapenem for his ESBL Escherichia coli wound infection. He is getting nourished with vital high-protein at 37 cc an hour which is goal. He continues on IV heparin. The most recent brain CT is reviewed. The patient is on propofol at 20 mcg/kg/min. Blood gases showed metabolic alkalosis. We will continue to follow make recommendations along the way. The patient may need a tracheostomy and PEG tube placement, should he not show any additional improvement. Plan dated June 15, 2024. The patient has had at least 3 or 4 episodes of sedation holidays, with no neurologic improvement, and with increased airway secretions. The patient becom es agitated, tachypneic, tachycardic, and hypertensive. The patient has to be resedated. The patient will need a tracheostomy and PEG tube placement. We will contact the family if possible. Labs, x-rays, and medications are reviewed. The patient's overall prognosis remains guarded. He continues on ertapenem for his ESBL Escherichia coli wound infection. Labs, x-rays, and all medications are reviewed. Prognosis is guarded. Blood gases are consistent with a metabolic alkalosis. Time with Patient: Greater than 30
[2024-06-15 11:47] LABS: Glucose,Whole Blood 116 mg/dL (70-110)
--- NOTE | 2024-06-15 13:56 | P.GSCN ---
History of Present Illness Consult date: 06/15/24 History of present illness: CHIEF COMPLAINT: Fall Reason for consult trach and PEG HISTORY OF PRESENT ILLNESS: This is a 58-year-old male who presents the hospital after a fall with recent back surgery. Patient taken back to surgery by orthopedic service for revision T10 to pelvis decompression and fusion with stabilization. Patient is in the ICU intubated and on mechanical ventilation. They are having difficulty weaning from the vent. He also was diagnosed with an acute to subacute stroke. He is on IV heparin for his A-fib RVR. Patient on antibiotics for surgical site infection of the spine. Surgical service consulted for tracheostomy and PEG tube placement PAST MEDICAL HISTORY: Atrial Fibrillation, Heart Failure, COPD, Diabetes Mellitus, GERD/Reflux, Hypertension, Musculoskeletal Disorder, Sleep Apnea/CPAP/BIPAP PAST SURGICAL HISTORY: Appendectomy, Cholecystectomy, Orthopedic Surgery MEDICATIONS: See below ALLERGIES: See below SOCIAL HISTORY: No illicit drug use. REVIEW OF SYSTEMS: CONSTITUTIONAL: Denies fever or chills. HEENT: Denies blurred vision, vision changes, or eye pain. Denies hemoptysis CARDIOVASCULAR: Denies chest pain or pressure. RESPIRATORY: No shortness of breath. GASTROINTESTINAL: See HPI for pertinent findings HEMATOLOGIC: Denies bleeding disorders. GENITOURINARY: Denies any blood in urine or increased urinary frequency. SKIN: Denies pruitis. Denies rash. PHYSICAL EXAM: VITAL SIGNS: Reviewed GENERAL: no acute distress. ABDOMEN: Soft. Nondistended. nontended LABORATORY DATA: WBC 5.8 hgb 10.3 plt 344 Na 137 K 4.0 creatinine 0.34 Albumin 3.1 IMAGING: ASSESSMENT: 1. Respiratory failure. Difficulty weaning from the vent 2. Moderate protein calorie malnutrition 3. Status post spinal surgery PLAN: -Patient scheduled for tracheostomy and PEG tube placement tomorrow with Dr. Macedo -Hold tube feeds after midnight -Hold IV heparin at 4 AM tomorrow morning Physician Quality Assurance Lab Technician note has been reviewed by physician. Signing provider agrees with the documented findings, assessment, and plan of care. Past Medical History Past Medical History: Atrial Fibrillation, Heart Failure, COPD, Diabetes Mellitus, GERD/Reflux, Hypertension, Musculoskeletal Disorder, Sleep Apnea/CPAP/BIPAP Additional Past Medical History / Comment(s): DDD, spinal spondylosis, right arm numbness down to fingers, bilateral knees occasionally buckle/wears right knee brace at times, chronic pain, no CPAP use. History of Any Multi-Drug Resistant Organisms: MRSA Year Discovered:: 1999 MDRO Source:: face Past Surgical History: Appendectomy, Cholecystectomy, Orthopedic Surgery Additional Past Surgical History / Comment(s): Cervical fusion/cage with bone from hip, back surgery d/t congenital defect, multiple sutures to face due to chain saw accident, facial MRSA with surgery to remove, colonoscopy, L2-Pelvis decompression and fusion, bilateral SI joint fusions. Past Anesthesia/Blood Transfusion Reactions: Previous Problems w/ Anesthesia Additional Past Anesthesia/Blood Transfusion Reaction / Comm: "Combative when coming out anesthesia." Pt has never had a blood transfusion. Past Psychological History: Anxiety, Depression, PTSD Additional Psychological History / Comment(s): Pt resides with exspouse. Smoking Status: Former smoker Past Alcohol Use History: None Reported Additional Past Alcohol Use History / Comment(s): Started smoking in 1979 and was a ppd smoker, quit 01/2023. Past Drug Use History: Marijuana Additional Drug Use History / Comment(s): USES MARIJUANA DAILY BOTH SMOKING AND EDIBLES-INSTRUCTED TO REFRAIN FROM USE FOR AT LEAST 24 HOURS PRIOR TO PROCEDURE. - Past Family History Mother Family Medical History: Deep Vein Thrombosis (DVT) Sister(s) Family Medical History: Cancer Additional Family Medical History / Comment(s): Colon cancer X2 sisters. Father Family Medical History: Myocardial Infarction ([place]) Additional Family Medical History / Comment(s): at 43 yrs of [place]. Medications and Allergies Home Medications Medication Instructions Recorded Confirmed Type PARoxetine HCL [Paxil] 40 mg PO HS 12/21/19 06/06/24 History buPROPion HCL [buPROPion HCL SR] 150 mg PO BID 12/21/19 06/06/24 History metFORMIN HCL [Glucophage] 500 mg PO BID 12/21/19 06/06/24 History Gabapentin 800 mg PO QID 11/06/22 06/06/24 History Atorvastatin [Lipitor] 40 mg PO HS 03/01/23 06/06/24 History Budesonide [Pulmicort] 1 mg INHALATION RT-BID 11/18/23 06/06/24 History HYDROcodone/APAP 10-325MG [[place] 1 tab PO QID PRN 11/18/23 06/06/24 History 10-325] Ipratropium Nebulized [Atrovent 0.5 mg INHALATION RT-QID 11/18/23 06/06/24 History Nebulized 0.2 MG/ML] Montelukast [Singulair] 10 mg PO HS 11/18/23 06/06/24 History Omeprazole [PriLOSEC] 40 mg PO DAILY 11/18/23 06/06/24 History Dapagliflozin Propanediol [Farxiga] 10 mg PO DAILY #30 tab 11/20/23 06/06/24 Rx Furosemide [Lasix] 40 mg PO DAILY #30 tab 11/20/23 06/06/24 Rx Doxycycline [Vibramycin] 100 mg PO BID 05/18/24 06/06/24 History Cyclobenzaprine [Flexeril] 10 mg PO BID PRN #30 tab 05/26/24 06/06/24 Rx Rivaroxaban [Xarelto] 10 mg PO W/SUPPER 06/06/24 06/06/24 History cefaDROXiL [Duricef] 500 mg PO Q12HR 06/06/24 06/06/24 History oxyCODONE-APAP 10-325MG [Percocet 1 tab PO Q6HR PRN 06/06/24 06/06/24 History 10-325 mg] Allergies Allergy/AdvReac Type Severity Reaction Status Date / Time No Known Allergies Allergy Verified 06/09/24 11:13 Surgical - Exam Vital Signs Temp Pulse Resp BP Pulse Ox 98.1 F 95 20 146/116 95 06/06/24 10:58 06/06/24 10:58 06/06/24 10:58 06/06/24 10:58 06/06/24 10:58 Results - Labs 06/15/24 04:30 06/15/24 04:30 Abnormal Lab Results - Last 24 Hours (Table) 06/14/24 06/14/24 06/14/24 Range/Units 11:43 14:00 17:55 RBC (4.30-5.90) m/uL Hgb (13.0-17.5) gm/dL Hct (39.0-53.0) % MCHC (31.0-37.0) g/dL RDW (11.5-15.5) % APTT 68.5 H (22.0-30.0) sec ABG pH (7.35-7.45) ABG pO2 (83-108) mmHg ABG HCO3 (21-25) mmol/L ABG Total CO2 (19-24) mmol/L Creatinine (0.66-1.25) mg/dL Glucose (74-99) mg/dL POC Glucose (mg/dL) 124 H 121 H (70-110) mg/dL Calcium (8.4-10.2) mg/dL 06/15/24 06/15/24 06/15/24 Range/Units 00:18 04:18 04:30 RBC (4.30-5.90) m/uL Hgb (13.0-17.5) gm/dL Hct (39.0-53.0) % MCHC (31.0-37.0) g/dL RDW (11.5-15.5) % APTT (22.0-30.0) sec ABG pH 7.50 H (7.35-7.45) ABG pO2 81 L (83-108) mmHg ABG HCO3 32 H (21-25) mmol/L ABG Total CO2 33 H (19-24) mmol/L Creatinine 0.34 L (0.66-1.25) mg/dL Glucose 112 H (74-99) mg/dL POC Glucose (mg/dL) 120 H (70-110) mg/dL Calcium 8.2 L (8.4-10.2) mg/dL 06/15/24 06/15/24 06/15/24 Range/Units 04:30 04:30 05:23 RBC 3.59 L (4.30-5.90) m/uL Hgb 10.3 L (13.0-17.5) gm/dL Hct 33.3 L (39.0-53.0) % MCHC 30.9 L (31.0-37.0) g/dL RDW 16.5 H (11.5-15.5) % APTT 73.8 H (22.0-30.0) sec ABG pH (7.35-7.45) ABG pO2 (83-108) mmHg ABG HCO3 (21-25) mmol/L ABG Total CO2 (19-24) mmol/L Creatinine (0.66-1.25) mg/dL Glucose (74-99) mg/dL POC Glucose (mg/dL) 125 H (70-110) mg/dL Calcium (8.4-10.2) mg/dL Microbiology - Last 24 Hours (Table) 06/12/24 17:40 Blood Culture - Preliminary Blood 06/09/24 18:00 Anaerobic Culture - Final Other - Other 06/09/24 17:52 Anaerobic Culture - Final Other - Other Diabetes panel 06/15/24 Range/Units 04:30 Sodium 137 (137-145) mmol/L Potassium 4.0 (3.5-5.1) mmol/L Chloride 106 (98-107) mmol/L Carbon Dioxide 26 (22-30) mmol/L BUN 19 (9-20) mg/dL Creatinine 0.34 L (0.66-1.25) mg/dL Glucose 112 H (74-99) mg/dL Calcium 8.2 L (8.4-10.2) mg/dL Calcium panel 06/15/24 Range/Units 04:30 Calcium 8.2 L (8.4-10.2) mg/dL Pituitary panel 06/15/24 Range/Units 04:30 Sodium 137 (137-145) mmol/L Potassium 4.0 (3.5-5.1) mmol/L Chloride 106 (98-107) mmol/L Carbon Dioxide 26 (22-30) mmol/L BUN 19 (9-20) mg/dL Creatinine 0.34 L (0.66-1.25) mg/dL Glucose 112 H (74-99) mg/dL Calcium 8.2 L (8.4-10.2) mg/dL Adrenal panel 06/15/24 Range/Units 04:30 Sodium 137 (137-145) mmol/L Potassium 4.0 (3.5-5.1) mmol/L Chloride 106 (98-107) mmol/L Carbon Dioxide 26 (22-30) mmol/L BUN 19 (9-20) mg/dL Creatinine 0.34 L (0.66-1.25) mg/dL Glucose 112 H (74-99) mg/dL Calcium 8.2 L (8.4-10.2) mg/dL
[2024-06-15 17:58] LABS: Glucose,Whole Blood 111 mg/dL (70-110)
[2024-06-15 23:28] LABS: Glucose,Whole Blood 127 mg/dL (70-110)
[2024-06-16 05:02] LABS: ABG Base Excess 7.1 mmol/L; ABG HCO3 32 mmol/L (21-25); ABG Oxygen Saturation 98.1 % (94-97); ABG PCO2 43 mmHg (35-45); ABG PH 7.47 (7.35-7.45); ABG PO2 95 mmHg (83-108); ABG TCO2 33 mmol/L (19-24); Allen Test Performed? Yes
[2024-06-16 05:21] LABS: Glucose,Whole Blood 100 mg/dL (70-110)
[2024-06-16 05:45] LABS: Anisocytosis Slight; HCT 34.6 % (39.0-53.0); HGB 10.7 gm/dL (13.0-17.5); Hypochromasia Marked; MCH 27.8 pg (25.0-35.0); MCHC 30.8 g/dL (31.0-37.0); MCV 90.1 fL (80.0-100.0); Mean Platelet Volume 7.2; Platelet Count 435 k/uL (150-450); Poikilocytosis Slight; RBC 3.84 m/uL (4.30-5.90); RDW 16.3 % (11.5-15.5); WBC 5.4 k/uL (3.8-10.6)
[2024-06-16 05:53] LABS: African American GFR (CKD) >90 (>60 ml/min/1.73 sqM); Anion Gap 5 mmol/L; Blood Urea Nitrogen 17 mg/dL (9-20); Calcium 8.1 mg/dL (8.4-10.2); Carbon Dioxide 27 mmol/L (22-30); Chloride 105 mmol/L (98-107); Glucose 92 mg/dL (74-99); Non-African American GFR(CKD) >90 (>60 ml/min/1.73 sqM); Potassium 3.8 mmol/L (3.5-5.1); Sodium 137 mmol/L (137-145)
[2024-06-16] MEDS: POTASSIUM BICARBONATE/CIT AC 20 MEQ TABLET.EFF NG-TUBE SCH (07:07)
[2024-06-16 07:10] LABS: Eosinophils # (M) 0.11 k/uL (0-0.7); Lymphocytes # (M) 1.35 k/uL (1.0-4.8); Monocytes # (M) 0.32 k/uL (0-1.0); Neutrophils # (M) 3.62 k/uL (1.3-7.7); Neutrophils % (M) 67 %; Nucleated Red Blood Cells 0 /100 WBC (0-0); Total Cells Counted 100
--- NOTE | 2024-06-16 08:05 | XR ---
EXAMINATION TYPE: XR chest 1V portable DATE OF EXAM: 06/16/2024 COMPARISON: 06/15/2024 HISTORY: SOB, Follow Up FINDINGS: Indwelling tubes and catheters are unchanged. Persistent features of congestive failure with perihilar infiltrates, pulmonary venous congestion and small effusions. Stable appearance of the cardio-mediastinal structures at this time. IMPRESSION: 1. Stable portable chest. Clinical correlation and follow up until resolution is recommended.
--- NOTE | 2024-06-16 09:31 | P.PN ---
Subjective Progress Note Date: 06/15/24 Patient was initially seen by Dr. Lorenzo Lopez. Please refer to his note for details. 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 Patient has history of atrial fibrillation and his anticoagulation Xarelto was held due to recent cervical issues and likely resulted in stroke. Patient is currently on heparin drip and pending PEG and trach placement. Patient was seen for a follow-up. Discussed with patient's nurse and patient's ex- in detail. Patient had undergone lumbar spinal surgery on 05/19/2024. He returned back to the ER on 06/06/2024 after he had a fall and twisted his back but did not land on his back or land on his knees(as per ED notes). Patient mentioned that his pain has increased. Patient's ex- at this time however completely denies patient having any falls. Patient was seen by Dr. Jeffrey who felt the screws has come close. Patient was found to have fracture of the lumbar spine (acute) without cord injury. He had lumbosacral spondylosis with radiculopathy and weakness of both lower extremities which was acute. Patient underwent open treatment with reduction L1 2 and L3 fractures. The lesion T10 pelvic posterior lateral instrumented fusion. Segmental instrumentation T10 to pelvis. Removal of hardware L2 and L3. Cement augmentation T9, T10, L1, L2 and L3 screws. T8 vertebroplasty to prevent P[place]. Postoperatively it was felt patient was not moving his right side of the body. He underwent CT head on 06/10/2024 which revealed findings of acute/subacute CVA involving the left frontoparietal region. CTA of head and neck revealed no significant diameter reduction took on for the patient's symptoms. No large vessel occlusion noted. Patient has remained intubated. Currently on propofol 20 g per program per minute. Patient has just received oxycodone. Per nursing report when the sedation is decreased, he appears to be "mad". He does move the left arm and the left leg, but not right side of the body. He moves right leg very little but not the right arm. Some of the other workup during this hospital visit consisted of: Lipid panel is triglyceride 68, cholesterol is 56, LDL is 18 and HDL is 23 Hemoglobin A1c 6.6. The echo on 06/08/2024 is reported as ejection fraction of [address] to [address]%. [address] head is reported as finding of acute/subacute CVA involving the left frontal parietal region. I personally reviewed CT and agree with the findings. CTA head and neck is read as no significant diameter reduction to account for the patient's symptoms. Area of hypoattenuation as described on the prior CT brain left frontal parietal region compatible with a finding of acute/subacute CVA. Repeat CT head 06/12/2024: Ongoing evolution of acute to subacute infarct over latral left frontal and parietal region with greater degree of hypodensity. Similar sulcal effacement. Minimal righward midline shift of 4mm vs 3mm measure on 06/10/24. No hemorrhagic transformation. Wound culture is positive for ESBL E. coli. Limited 2D echo was reported as mild reduced left ventricle systolic function left atrial enlargement. Most recent repeat CT of the head on 06/14/2024 is reported as left MCA territory evolving acute/subacute CVA. No evidence for hemorrhagic conversion. I personally reviewed the CT and I agree with the report. Objective - Vital Signs Vital signs: Vital Signs Temp 98.4 F 06/15/24 12:00 Pulse 71 06/15/24 12:00 Resp 20 06/15/24 12:00 BP 98/75 06/15/24 12:00 Pulse Ox 100 06/15/24 12:00 FiO2 40 06/15/24 12:00 Intake & Output 06/14/24 06/15/24 06/15/24 18:59 06:59 18:59 Intake Total 1665.158 0987.763 277.430 Output Total 955 548 220 Balance 167.873 549.763 57.430 Weight 114.8 kg 114.8 kg Intake: IV 170 120 50 Ertapenem 1 gm In Sodium 50 Chloride 0.9% 50 ml @ 100 mls/hr IVPB DAILY [facility] Rx #:[id number] kvo 120 120 50 Intake, IV Titration 478.873 473.763 46.430 Amount Heparin Sod,Pork in 0.45% 308.039 284.911 NaCl 25,000 unit In 0.45 % NaCl 1 250ml.bag @ 8.65 UNITS/KG/HR 9.999 mls/hr IV .Q24H [facility] Rx#: [id number] propofoL 1,000 mg In 170.834 188.852 46.430 Empty Bag 1 bag @ 15 MCG/ KG/MIN 10.305 mls/hr IV . [id number] [facility] Rx#:[id number] Tube Feeding 444 444 151 Other 30 60 30 Output: Drainage 10 Right Back 10 Urine 945 548 220 Other: Voiding Method Indwelling Catheter Indwelling Catheter ABP, PAP, CO, CI - Last Documented Arterial Blood Pressure 94/59 - Exam Patient is intubated, sedated on propofol 20 mcg/kg per minute. Patient appears comfortable at this time. Patient does move his left arm and left leg with painful stimuli, but not the right side. Pupils are equal, round and reacting. Muscle examination is limited because of sedation. - Labs CBC & Chem 7: 06/16/24 05:21 06/16/24 05:21 Labs: Abnormal Lab Results - Last 24 Hours (Table) 06/14/24 06/14/24 06/15/24 Range/Units 14:00 17:55 00:18 RBC (4.30-5.90) m/uL Hgb (13.0-17.5) gm/dL Hct (39.0-53.0) % MCHC (31.0-37.0) g/dL RDW (11.5-15.5) % APTT 68.5 H (22.0-30.0) sec ABG pH (7.35-7.45) ABG pO2 (83-108) mmHg ABG HCO3 (21-25) mmol/L ABG Total CO2 (19-24) mmol/L Creatinine (0.66-1.25) mg/dL Glucose (74-99) mg/dL POC Glucose (mg/dL) 121 H 120 H (70-110) mg/dL Calcium (8.4-10.2) mg/dL 06/15/24 06/15/24 06/15/24 Range/Units 04:18 04:30 04:30 RBC 3.59 L (4.30-5.90) m/uL Hgb 10.3 L (13.0-17.5) gm/dL Hct 33.3 L (39.0-53.0) % MCHC 30.9 L (31.0-37.0) g/dL RDW 16.5 H (11.5-15.5) % APTT (22.0-30.0) sec ABG pH 7.50 H (7.35-7.45) ABG pO2 81 L (83-108) mmHg ABG HCO3 32 H (21-25) mmol/L ABG Total CO2 33 H (19-24) mmol/L Creatinine 0.34 L (0.66-1.25) mg/dL Glucose 112 H (74-99) mg/dL POC Glucose (mg/dL) (70-110) mg/dL Calcium 8.2 L (8.4-10.2) mg/dL 06/15/24 06/15/24 06/15/24 Range/Units 04:30 05:23 11:45 RBC (4.30-5.90) m/uL Hgb (13.0-17.5) gm/dL Hct (39.0-53.0) % MCHC (31.0-37.0) g/dL RDW (11.5-15.5) % APTT 73.8 H (22.0-30.0) sec ABG pH (7.35-7.45) ABG pO2 (83-108) mmHg ABG HCO3 (21-25) mmol/L ABG Total CO2 (19-24) mmol/L Creatinine (0.66-1.25) mg/dL Glucose (74-99) mg/dL POC Glucose (mg/dL) 125 H 116 H (70-110) mg/dL Calcium (8.4-10.2) mg/dL Microbiology - Last 24 Hours (Table) 06/12/24 17:40 Blood Culture - Preliminary Blood 06/09/24 18:00 Anaerobic Culture - Final Other - Other 06/09/24 17:52 Anaerobic Culture - Final Other - Other Assessment and Plan Assessment: 58-year-old gentleman with history of atrial fibrillation status post cardioversion on Xarelto, diabetes mellitus, heart failure, cervical myelopathy, back pain and had recent L2 to pelvis decompression and fusion of bilateral open SI joint on 05/19/2024 who had a recent fall with back pain. Patient had L2-L3 fracture and has hardware failure of the thoracic spine to pelvis. On 06/09/2024, patient had L1-L2 and L3 revision T10 to pelvis posterior lateral instrumented fusion with hardware removal. His Xarelto was held 48 hours and it seems last dose was on 06/08/2024 per the nurse. On 06/10/2024, when the sedation was held the patient was not moving the right side and CT of the head shows acute to subacute over the left frontal parietal region. Acute to subacute stroke (seems more subacute) over the left frontal parietal region Altered mental status due to above, sepsis (Wound culture is positive for ESBL E. coli.) Recent fall with back pain and it seems that the patient has L2-L3 Fracture s/p revision T10 to Pelvis posterior lateral instrument fusion with hardware removal Intubated on a ventilator History of atrial fibrillation status post cardioversion and was on Xarelto and the Xarelto was held for the last 48 hours but currently on heparin drip History of cervical myelopathy status post C2-T2 decompression and fusion Recent recent L2 to pelvis decompression and fusion of bilateral open SI joint on 05/19/2024 History of Systolic Heart failure and recent 2D echo on 06/08/24 has EF 25-30% Diabetes mellitus and HbA1c: 6.6 Chronic hypertension History of hyperlipidemia History of obstructive sleep apnea Former tobacco use Plan: Patient is on heparin drip for the A-fib. From neurology perspective the patient can resume Xarelto. Dr. Lopez has spoken with the ICU nurse and she stated that per the ICU attending, remain on heparin drip for now, until he undergoes a trach and PEG. Is on Lipitor 40mg qhs which is sufficient for secondary stroke prophylaxis. Continue neurochecks Cardiac monitoring PT OT are consulted Cardiology team is on board Will defer the rest of the medical management to primary and other specialists DVT prophylaxis: On heparin drip. Keep the PTT between 45 and 60, as per Dr. Lopez recommendation. Condition is very guarded. Discussed with patient's nurse in detail.
--- NOTE | 2024-06-16 10:10 | P.PN ---
Subjective Progress Note Date: 06/16/24 Principal diagnosis: CVA. Patient is a 58-year-old white male with past medical history significant for obstructive sleep apnea with home CPAP, COPD, ex tobacco smoker, marijuana smoker, atrial fibrillation with previous cardioversion and anticoagulated on Xarelto, diabetes mellitus, hypertension, heart failure, and previous spinal surgeries. His primary care provider is Dr. Deuce Brito. He is currently intubated to the mechanical ventilator, unable to provide any information for HPI. Of note, patient recently underwent an L2 to pelvis posterior lateral decompression and fusion on 05/19/2024 at [facility]. During this admission, he initially was recovered in the intensive care unit. Technically, difficult to extubate, and did require BiPAP support immediately after extubation. He was eventually discharged home on 05/26/2024. Patient returned the emergency department on 06/06/2024. On review of the ER documentation, he had a fall while at home. CT of the lumbar spine demonstrated new compression fracture of L2 vertebral body with compression of the vertebral body down to the pedicle screws bilaterally and loosening the left pedicle screw. New left pedicle/transverse process of L2 and L3 fractures around the hardware with mild displacement. Fractures of the right transverse process of L2 and L3. Likely postsurgical subcutaneous gas in the surgical bed. Patient underwent revision thoracic T10 to pelvis decompression fusion yesterday. Intraoperatively, patient had an EBL of 1 L. He has received a total of 5 units of PRBCs, 1 FFP, and 1 pack platelets. He was sent to the intensive care unit postoperatively. He remains on the mechanical ventilator. Chest x-ray shows the endotracheal tube approximately 4.3 cm above the shashank. There is cardiomegaly with pulmonary vascular congestion suggested. No pleural effusions, pneumothoraces, focal consolidations. Initial ABG had a PaO2 of 80, pCO2 of 61, pH of 7.27. This was done on original ventilator settings of assist-control, respiratory rate 14, tidal volume 500, FiO2 1 9%, and PEEP of 5. My supervising physician is already increased the patient's respiratory rate to 20. He is currently synchronous with mechanical ventilator. There is a moderate amount of clear to white endotracheal secretions. Peak pressures 23. He is sedated with propofol which is currently infusing at 50 mcg/kg/min. He is fairly unarousable. Will withdraw to painful stimuli in all 4 extremities. There is also norepinephrine infusing at 0.02 mcg/kg/min. 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 LR is infusing at 10 MLS per hour. There is a Hemovac with a total of 220 serosanguineous output since surgery. We are awaiting postoperative labs. Preoperatively, CBC: WBC count 9.4, hemoglobin 9.6, hematocrit 32.5, platelets 516. Preoperative CMP: Sodium 137, potassium 4.1, chloride 104, serum bicarb 27, BUN 18, creatinine 0.61, glucose 143. LFTs unremarkable. Receiving prophylactic cefazolin. Note that preoperatively, patient did have a cardiac evaluation. Repeat echocardiogram shows a severely reduced left ventricular ejection fraction of 25 to 30% as well as mild mitral and tricuspid regurgitation. Heart rhythm is atrial fibrillation with controlled ventricular response. Normally anticoagulated on Xarelto, however, this is on hold for surgery. Progress note dated June 11, 2024. 58-year-old male recently had additional back surgery, including a T10 to pelvic decompression and fusion. Please see my consultation from yesterday. Today is postop day #2. The patient was brought back to the ICU on the ventilator. Will be woke him up for the daily interruption of sedation yesterday, it was noted that he was not moving his right side. He was sent for an immediate CT scan without contrast. It showed a subacute left frontoparietal CVA. It was isch emic in nature. He remains on mechanical ventilator. He is on volume assist- control, rate 20, tidal line 500, FiO2 50% to be dropped down to 40%, and PEEP of 5. Blood gases show pO2 118, pCO2 37, pH is 7.47. The patient is taking propofol at 50 mcg/kg/min, saline at KVO norepinephrine at 2 mcg/min IV heparin, and vital HP at 20 cc an hour with a goal of 37 cc. White count 8.9, hemoglobin 10, hematocrit 32.3, platelet count 262,000. PTT is 36.6. Sodium 136, potassium 4.2, chlorides 105, CO2 24, BUN 14, creatinine 0.37. Glucose is 138. Hemoglobin A1c is 6.6. Chest x-ray is essentially within normal range today for cardiomegaly. Progress note dated June 12, 2024. 58-year-old male seen again in room 255. The patient remains on mechanical ventilation. He is on volume assist-control, rate 20, tidal volume 500, FiO2 40%, PEEP of 5. Blood gases show pO2 of 80, pCO2 41, pH is 7.49. This blood gases consistent with metabolic alkalosis. The patient is on propofol at 25 mcg/kg/min, heparin via weight-based protocol, and vital HP at 37 cc an hour, which is goal. The patient had evidence of E. coli from the wound culture, the Escherichia coli is ESBL E. coli. For that reason he is on ertapenem. We will attempt a daily interruption of sedation. The patient did poorly with this holiday yesterday. His mental status was poor, but he still has increased secretions. He may eventually need tracheostomy and PEG tube placement. White count 5.4, hemoglobin 10.4, hematocrit 33.8, platelet count 338,000. PTT is 58.6. Sodium 139, potassium 3.5, chlorides 107, CO2 31, BUN 17, creatinine 0.37. Glucose is 108. Calcium 8.2. Chest x-ray shows a pattern of pulmonary vascular congestion, and bilateral effusions. Progress note dated June 14, 2024. 58-year-old male seen again in room 255. The patient remains on mechanical ventilation, and has done very poorly with his sedation holidays. He may end up with a tracheostomy and peg tube placement. Currently, he is on volume assist- control, rate 20, tidal volume 500, FiO2 40%, PEEP of 5. Blood gases show pO2 of 75, pCO2 of 41, pH is 7.49. He is getting saline at KVO, propofol at 20 mcg/kg/min, and IV heparin. He is on vital high-protein at 37 cc an hour, which is goal. He is also getting ertapenem, for an ESBL E. coli wound infection. Labs include a white count of 6, hemoglobin 10.8, hematocrit 34.6, and a hemant telet count of 370,000. Sodium 138, potassium 3.8, chlorides 107, CO2 27, BUN 18, and creatinine 0.35. Glucose is 133. Calcium 8.5. Magnesium 1.9. Chest x-ray shows unchanged chest x-ray with stable tubes and lines. Brain CT shows left MCA territory involving acute/subacute CVA, with no evidence for hemorrhagic conversion. Progress note dated June 15, 2024. 58-year-old male seen again in room 255. He remains on mechanical ventilation. He is on volume assist-control, rate 20, tidal line 500, FiO2 40%, PEEP of 5. Blood gases show pO2 of 81, pCO2 41, pH is 7.5. Blood gases are consistent with metabolic alkalosis. He is currently on propofol at 20 mcg/kg/min, heparin via weight-based protocol, saline at KVO, and vital high-protein at 37, which is goal. The patient will have a consult placed to surgery, for tracheostomy and PEG tube placement. His peak airway pressure is 19 cm of water. His plateau pressures 14 cm of water. The patient's airways resistance is 4.63 cmH2O per liters per second. White count is 5.8, hemoglobin 10.3, hematocrit 33.3, platelet count 3 and 44,000. Sodium 137, potassium 4, chloride 106, CO2 26, BUN 19, and creatinine 0.34. Glucose is 125. Calcium 8.2. Wound cultures are positive for ESBL Escherichia coli. Chest x-ray shows scattered bilateral infiltrates, which are unchanged. Progress note dated June 16, 2024. 58-year-old male seen again in room 255. He remains on mechanical ventilator. I did have a conversation with his Sister Altagracia today, about making the decision to proceed with tracheostomy and PEG tube placement. She was going to get back with us later today. He is on volume assist-control, rate 20, tidal volume 500, FiO2 40%, PEEP of 5. Blood gases show pO2 of 95, pCO2 43, pH is 7.47. The patient is on IV heparin via weight-based protocol, propofol at 20 mcg/kg/min, and vital AF at goal, which is 40 cc an hour. Labs include a white count 5.4, hemoglobin 10.7, hematocrit 34.6, and platelet count 435,000. PTT is 53.3. Sodium 137, potassium 3.8, chlorides 105, CO2 27, BUN 17, and creatinine 0.34. Wound cultures, were positive for ESBL Escherichia coli. For that reason, he is on ertapenem. Portable chest x-ray is largely unchanged. Objective - Vital Signs Vital signs: Vital Signs Temp 98.9 F 06/16/24 08:00 Pulse 98 06/16/24 09:00 Resp 21 06/16/24 09:00 BP 118/86 06/16/24 08:00 Pulse Ox 98 06/16/24 09:00 FiO2 40 06/16/24 08:00 Intake & Output 06/15/24 06/16/24 06/16/24 18:59 06:59 18:59 Intake Total 1066.089 939.041 50 Output Total 770 1070 45 Balance 296.089 -130.959 5 Weight 114.8 kg 112.9 kg Intake: IV 130 110 10 kvo 130 110 10 Intake, IV Titration 315.089 379.041 Amount Heparin Sod,Pork in 0.45% 215.089 250 NaCl 25,000 unit In 0.45 % NaCl 1 250ml.bag @ 8.65 UNITS/KG/HR 9.999 mls/hr IV .Q24H [facility] Rx#: [id number] propofoL 1,000 mg In 100.000 129.041 Empty Bag 1 bag @ 15 MCG/ KG/MIN 10.305 mls/hr IV . Q9H43M [facility] Rx#:[id number] Tube Feeding 471 360 40 Other 150 90 Output: Urine 770 1070 45 Other: Voiding Method Indwelling Catheter Indwelling Catheter # Voids 2 # Bowel Movements 0 ABP, PAP, CO, CI - Last Documented Arterial Blood Pressure 138/80 - Exam No acute distress, sedated, with an orally placed endotracheal tube. HEENT examination is grossly unremarkable. Mucous membranes are moist. No oral lesions. Neck supple. Full range of motion. No adenopathy thyromegaly or neck vein distention. Cardiovascular examination reveals regular rhythm rate. S1-S2 normal. No S3 or S4. No discernible murmur noted. Heart rate 98 bpm. Lungs reveal mostly clear breath sounds. Minimal scattered rhonchi. No wheezes or crackles. Breath sounds equal. Saturations are 98 %. Abdomen soft bowel sounds are heard. No masses or tenderness. Extremities are intact. No cyanosis clubbing or edema. Skin is without rash or lesion. Neurologic examination cannot be assessed at this time. - Labs CBC & Chem 7: 06/16/24 05:21 06/16/24 05:21 Labs: Abnormal Lab Results - Last 24 Hours (Table) 06/15/24 06/15/24 06/15/24 Range/Units 11:45 12:33 15:28 RBC (4.30-5.90) m/uL Hgb (13.0-17.5) gm/dL Hct (39.0-53.0) % MCHC (31.0-37.0) g/dL RDW (11.5-15.5) % APTT 85.4 H 75.0 H (22.0-30.0) sec ABG pH (7.35-7.45) ABG HCO3 (21-25) mmol/L ABG Total CO2 (19-24) mmol/L ABG O2 Saturation (94-97) % Creatinine (0.66-1.25) mg/dL POC Glucose (mg/dL) 116 H (70-110) mg/dL Calcium (8.4-10.2) mg/dL 06/15/24 06/15/24 06/15/24 Range/Units 17:57 23:20 23:26 RBC (4.30-5.90) m/uL Hgb (13.0-17.5) gm/dL Hct (39.0-53.0) % MCHC (31.0-37.0) g/dL RDW (11.5-15.5) % APTT 49.0 H (22.0-30.0) sec ABG pH (7.35-7.45) ABG HCO3 (21-25) mmol/L ABG Total CO2 (19-24) mmol/L ABG O2 Saturation (94-97) % Creatinine (0.66-1.25) mg/dL POC Glucose (mg/dL) 111 H 127 H (70-110) mg/dL Calcium (8.4-10.2) mg/dL 06/16/24 06/16/24 06/16/24 Range/Units 04:58 05:21 05:21 RBC 3.84 L (4.30-5.90) m/uL Hgb 10.7 L (13.0-17.5) gm/dL Hct 34.6 L (39.0-53.0) % MCHC 30.8 L (31.0-37.0) g/dL RDW 16.3 H (11.5-15.5) % APTT (22.0-30.0) sec ABG pH 7.47 H (7.35-7.45) ABG HCO3 32 H (21-25) mmol/L ABG Total CO2 33 H (19-24) mmol/L ABG O2 Saturation 98.1 H (94-97) % Creatinine 0.34 L (0.66-1.25) mg/dL POC Glucose (mg/dL) (70-110) mg/dL Calcium 8.1 L (8.4-10.2) mg/dL 06/16/24 Range/Units 05:21 RBC (4.30-5.90) m/uL Hgb (13.0-17.5) gm/dL Hct (39.0-53.0) % MCHC (31.0-37.0) g/dL RDW (11.5-15.5) % APTT 53.3 H (22.0-30.0) sec ABG pH (7.35-7.45) ABG HCO3 (21-25) mmol/L ABG Total CO2 (19-24) mmol/L ABG O2 Saturation (94-97) % Creatinine (0.66-1.25) mg/dL POC Glucose (mg/dL) (70-110) mg/dL Calcium (8.4-10.2) mg/dL Microbiology - Last 24 Hours (Table) 06/14/24 11:45 Gram Stain - Preliminary Sputum 06/12/24 17:40 Blood Culture - Preliminary Blood Assessment and Plan Assessment: Status post fall, with L2 vertebral body compression fracture, L2-L3 right-sided transverse process fractures, and L2-L3 left-sided pedicle/transverse process fractures. Status postoperative day #6 following a revision T10 to pelvis decompression and fusion with stabilization. Routine postoperative mechanical ventilator management. ESBL Escherichia coli wound infection. Recent L2 to pelvis posterior lateral decompression and fusion on 05/19/2024. Acute blood loss anemia, patient has received a total of 5 units of PRBCs perioperatively, 1 pack platelets, and is going to receive 1 unit FFP. Hypotension, resolved. Heart failure with reduced ejection fraction. Chronic atrial fibrillation. History of hypertension. History of hyperlipidemia. History of diabetes mellitus. Obesity, with a BMI of 38.4 kg/m. History of obstructive sleep apnea. Chronic obstructive pulmonary disease, stable. Former tobacco smoker. Remote history of prior C2-T2 Decompression and fusion. Plan: Plan dated June 11, 2024. The patient remains in the intensive care unit, on the mechanical ventilator. The patient did not do well yesterday with his daily interruption of sedation. It will be tried again today. The patient's FiO2 was reduced from 50%, down to 40%. The pO2 on the blood gas was 118. The patient continues on propofol at 50 mcg/kg/min, saline at KVO, and norepinephrine at 2 mcg/min. The patient is also receiving IV heparin via weight-based protocol, and vital high-protein, at 20 cc an hour, with a goal of 37 cc. The patient was discovered to have a left fro ntal parietal CVA, which is thought to be subacute. He is postop day #2. Labs, x-rays, and all medications are reviewed. Plan dated June 13, 2024. The patient remains in the intensive care unit. Yesterday, he did poorly with his sedation holiday. He has lots of airway secretions, and his mental status was poor. For that reason, he was resedated. We will attempt another sedation holiday today. The wound cultures, from his back, show evidence of ESBL Escherichia coli. For that reason he is on ertapenem. He continues on propofol at 25 mcg/kg/min, heparin via weight-based protocol, and vital HP at 37 cc an hour which is goal. Blood gases show pO2 of 80, pCO2 41, pH is 7.49. This blo od gases consistent with metabolic alkalosis. Labs, x-rays, and medications are reviewed. The patient's overall prognosis remains guarded. We will continue to follow make recommendations along the way. Plan dated June 14, 2024. Unfortunately, every time we do a sedation holiday, the patient's neurologic status, does not improve. The patient also has lots of airway secretions. Anyway, today, the patient will not have a daily interruption of sedation. He continues on ertapenem for his ESBL Escherichia coli wound infection. He is getting nourished with vital high-protein at 37 cc an hour which is goal. He continues on IV heparin. The most recent brain CT is reviewed. The patient is on propofol at 20 mcg/kg/min. Blood gases showed metabolic alkalosis. We will continue to follow make recommendations along the way. The patient may need a tracheostomy and PEG tube placement, should he not show any additional improvement. Plan dated June 15, 2024. The patient has had at least 3 or 4 episodes of sedation holidays, with no neurologic improvement, and with increased airway secretions. The patient becomes agitated, tachypneic, tachycardic, and hypertensive. The patient has to be resedated. The patient will need a tracheostomy and PEG tube placement. We will contact the family if possible. Labs, x-rays, and medications are reviewed. The patient's overall prognosis remains guarded. He continues on ertapenem for his ESBL Escherichia coli wound infection. Labs, x-rays, and all medications are reviewed. Prognosis is guarded. Blood gases are consistent with a metabolic alkalosis. Plan dated June 16, 2024. The patient is seen today in room 255. He basically is essentially unchanged. I did have a conversation with his sister Altagracia, who apparently resides in the [facility]. I have asked her to make a decision about tracheostomy and PEG tube placement. I would like to do that tomorrow if possible. Labs, x-rays, medications are reviewed. The patient does poorly on a sedation holiday. The patient was admitted after surgery, and had a left frontal temporal CVA. He continues on IV heparin and propofol. Labs, x-rays, and all medications have been reviewed. Prognosis is guarded. Time with Patient: Less than 30
--- NOTE | 2024-06-16 11:02 | P.PN ---
Subjective Progress Note Date: 06/16/24 CHIEF COMPLAINT: Fall HISTORY OF PRESENT ILLNESS: Patient remains in the ICU intubated and on mechanical ventilation. Initially scheduled for tracheostomy and PEG tube placement today. However, family has not signed consent. Afebrile. WBC 5.4 Hgb 10.7 platelets 435 PHYSICAL EXAM: VITAL SIGNS: Reviewed. GENERAL: no acute distress. ABDOMEN: Soft. Nondistended. Nontender. NEUROLOGIC: Intubated ASSESSMENT: 1. Respiratory failure. Difficulty weaning from the vent 2. Moderate protein calorie malnutrition 3. Status post spinal surgery 4. CVA PLAN: -Tracheostomy and PEG tube placed on hold for today. The consent has not been signed. Awaiting family's decision. 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 Signing provider agrees with the documented findings, assessment, and plan of care. Objective - Vital Signs Vital signs: Vital Signs Temp 98.9 F 06/16/24 08:00 Pulse 96 06/16/24 10:00 Resp 24 06/16/24 10:00 BP 118/86 06/16/24 08:00 Pulse Ox 97 06/16/24 10:00 FiO2 40 06/16/24 08:00 Intake & Output 06/15/24 06/16/24 06/16/24 18:59 06:59 18:59 Intake Total 1066.089 939.041 280 Output Total 770 1070 225 Balance 296.089 -130.959 55 Weight 114.8 kg 112.9 kg Intake: IV 130 110 90 Ertapenem 1 gm In Sodium 50 Chloride 0.9% 50 ml @ 100 mls/hr IVPB DAILY [facility] Rx #:[id number] kvo 130 110 40 Intake, IV Titration 315.089 379.041 Amount Heparin Sod,Pork in 0.45% 215.089 250 NaCl 25,000 unit In 0.45 % NaCl 1 250ml.bag @ 8.65 UNITS/KG/HR 9.999 mls/hr IV .Q24H [facility] Rx#: [id number] propofoL 1,000 mg In 100.000 129.041 Empty Bag 1 bag @ 15 MCG/ KG/MIN 10.305 mls/hr IV . Q9H43M [facility] Rx#:[id number] Tube Feeding 471 360 160 Other 150 90 30 Output: Urine 770 1070 225 Other: Voiding Method Indwelling Catheter Indwelling Catheter Indwelling Catheter # Voids 2 # Bowel Movements 0 ABP, PAP, CO, CI - Last Documented Arterial Blood Pressure 144/82 - Labs CBC & Chem 7: 06/16/24 05:21 06/16/24 05:21 Labs: Abnormal Lab Results - Last 24 Hours (Table) 06/15/24 06/15/24 06/15/24 Range/Units 11:45 12:33 15:28 RBC (4.30-5.90) m/uL Hgb (13.0-17.5) gm/dL Hct (39.0-53.0) % MCHC (31.0-37.0) g/dL RDW (11.5-15.5) % APTT 85.4 H 75.0 H (22.0-30.0) sec ABG pH (7.35-7.45) ABG HCO3 (21-25) mmol/L ABG Total CO2 (19-24) mmol/L ABG O2 Saturation (94-97) % Creatinine (0.66-1.25) mg/dL POC Glucose (mg/dL) 116 H (70-110) mg/dL Calcium (8.4-10.2) mg/dL 06/15/24 06/15/24 06/15/24 Range/Units 17:57 23:20 23:26 RBC (4.30-5.90) m/uL Hgb (13.0-17.5) gm/dL Hct (39.0-53.0) % MCHC (31.0-37.0) g/dL RDW (11.5-15.5) % APTT 49.0 H (22.0-30.0) sec ABG pH (7.35-7.45) ABG HCO3 (21-25) mmol/L ABG Total CO2 (19-24) mmol/L ABG O2 Saturation (94-97) % Creatinine (0.66-1.25) mg/dL POC Glucose (mg/dL) 111 H 127 H (70-110) mg/dL Calcium (8.4-10.2) mg/dL 06/16/24 06/16/24 06/16/24 Range/Units 04:58 05:21 05:21 RBC 3.84 L (4.30-5.90) m/uL Hgb 10.7 L (13.0-17.5) gm/dL Hct 34.6 L (39.0-53.0) % MCHC 30.8 L (31.0-37.0) g/dL RDW 16.3 H (11.5-15.5) % APTT (22.0-30.0) sec ABG pH 7.47 H (7.35-7.45) ABG HCO3 32 H (21-25) mmol/L ABG Total CO2 33 H (19-24) mmol/L ABG O2 Saturation 98.1 H (94-97) % Creatinine 0.34 L (0.66-1.25) mg/dL POC Glucose (mg/dL) (70-110) mg/dL Calcium 8.1 L (8.4-10.2) mg/dL 06/16/24 Range/Units 05:21 RBC (4.30-5.90) m/uL Hgb (13.0-17.5) gm/dL Hct (39.0-53.0) % MCHC (31.0-37.0) g/dL RDW (11.5-15.5) % APTT 53.3 H (22.0-30.0) sec ABG pH (7.35-7.45) ABG HCO3 (21-25) mmol/L ABG Total CO2 (19-24) mmol/L ABG O2 Saturation (94-97) % Creatinine (0.66-1.25) mg/dL POC Glucose (mg/dL) (70-110) mg/dL Calcium (8.4-10.2) mg/dL Microbiology - Last 24 Hours (Table) 06/14/24 11:45 Gram Stain - Preliminary Sputum 06/12/24 17:40 Blood Culture - Preliminary Blood
[2024-06-16 12:04] LABS: Glucose,Whole Blood 129 mg/dL (70-110)
--- NOTE | 2024-06-16 14:52 | P.PN ---
Subjective Progress Note Date: 06/16/24 Principal diagnosis: Reason for follow-up is lumbar surgical site infection ESBL E. coli Patient is a 58-year-old male with a past medical history significant for diabetes mellitus hypertension COPD atrial fibrillation sleep apnea initially presented to hospital with back pain has been diagnosed with L1-L3 fracture status post extensive surgery and surgical cultures came back positive with ESBL E. coli prompted this consultation. On today's evaluation that is 06/16/2024, the patient did have a low-grade fever of 99.9 F at midnight the patient is afebrile since then the patient remains to be on the ventilator FiO2 is stable at 40% no significant purulent secretions through the ET, patient is hemodynamically stable not requiring any pressor support no diarrhea or any other changes reported by nursing staff. Patient white count is 5.4, creatinine 0.34 Objective - Vital Signs Vital signs: Vital Signs Temp 98.9 F 06/16/24 08:00 Pulse 92 06/16/24 11:17 Resp 24 06/16/24 11:00 BP 118/86 06/16/24 08:00 Pulse Ox 100 06/16/24 11:00 FiO2 40 06/16/24 10:58 Intake & Output 06/15/24 06/16/24 06/16/24 18:59 06:59 18:59 Intake Total 1066.089 939.041 280 Output Total 770 1070 225 Balance 296.089 -130.959 55 Weight 114.8 kg 112.9 kg Intake: IV 130 110 90 Ertapenem 1 gm In Sodium 50 Chloride 0.9% 50 ml @ 100 mls/hr IVPB DAILY [facility] Rx #:[id number] kvo 130 110 40 Intake, IV Titration 315.089 379.041 Amount Heparin Sod,Pork in 0.45% 215.089 250 NaCl 25,000 unit In 0.45 % NaCl 1 250ml.bag @ 8.65 UNITS/KG/HR 9.999 mls/hr IV .Q24H [facility] Rx#: [id number] propofoL 1,000 mg In 100.000 129.041 Empty Bag 1 bag @ 15 MCG/ KG/MIN 10.305 mls/hr IV . Q9H43M [facility] Rx#:[id number] Tube Feeding 471 360 160 Other 150 90 30 Output: Urine 770 1070 225 Other: Voiding Method Indwelling Catheter Indwelling Catheter Indwelling Catheter # Voids 2 # Bowel Movements 0 ABP, PAP, CO, CI - Last Documented Arterial Blood Pressure 134/78 - Exam GENERAL DESCRIPTION: Middle-age male intubated on the vent RESPIRATORY SYSTEM: Unlabored breathing , decreased breath sounds at bases HEART: S1 S2 regular rate and rhythm , ABDOMEN: Soft , no tenderness EXTREMITIES: No edema feet - Labs CBC & Chem 7: 06/16/24 05:21 06/16/24 05:21 Labs: Abnormal Lab Results - Last 24 Hours (Table) 06/15/24 06/15/24 06/15/24 Range/Units 15:28 17:57 23:20 RBC (4.30-5.90) m/uL Hgb (13.0-17.5) gm/dL Hct (39.0-53.0) % MCHC (31.0-37.0) g/dL RDW (11.5-15.5) % APTT 75.0 H 49.0 H (22.0-30.0) sec ABG pH (7.35-7.45) ABG HCO3 (21-25) mmol/L ABG Total CO2 (19-24) mmol/L ABG O2 Saturation (94-97) % Creatinine (0.66-1.25) mg/dL POC Glucose (mg/dL) 111 H (70-110) mg/dL Calcium (8.4-10.2) mg/dL 06/15/24 06/16/24 06/16/24 Range/Units 23:26 04:58 05:21 RBC 3.84 L (4.30-5.90) m/uL Hgb 10.7 L (13.0-17.5) gm/dL Hct 34.6 L (39.0-53.0) % MCHC 30.8 L (31.0-37.0) g/dL RDW 16.3 H (11.5-15.5) % APTT (22.0-30.0) sec ABG pH 7.47 H (7.35-7.45) ABG HCO3 32 H (21-25) mmol/L ABG Total CO2 33 H (19-24) mmol/L ABG O2 Saturation 98.1 H (94-97) % Creatinine (0.66-1.25) mg/dL POC Glucose (mg/dL) 127 H (70-110) mg/dL Calcium (8.4-10.2) mg/dL 06/16/24 06/16/24 06/16/24 Range/Units 05:21 05:21 12:02 RBC (4.30-5.90) m/uL Hgb (13.0-17.5) gm/dL Hct (39.0-53.0) % MCHC (31.0-37.0) g/dL RDW (11.5-15.5) % APTT 53.3 H (22.0-30.0) sec ABG pH (7.35-7.45) ABG HCO3 (21-25) mmol/L ABG Total CO2 (19-24) mmol/L ABG O2 Saturation (94-97) % Creatinine 0.34 L (0.66-1.25) mg/dL POC Glucose (mg/dL) 129 H (70-110) mg/dL Calcium 8.1 L (8.4-10.2) mg/dL Microbiology - Last 24 Hours (Table) 06/14/24 11:45 Gram Stain - Preliminary Sputum Sputum Culture - Preliminary 06/12/24 17:40 Blood Culture - Preliminary Blood Assessment and Plan (1) Surgical site infection Current Visit: Yes Status: Acute Code(s): T81.49XA - INFECTION FOLLOWING A PROCEDURE, OTHER SURGICAL SITE, INIT SNOMED Code(s): 06736106 (2) Infection due to ESBL-producing Escherichia coli Current Visit: Yes Status: Acute Code(s): A49.8 - OTHER BACTERIAL INFECTIONS OF UNSPECIFIED SITE; Z16.12 - EXTENDED SPECTRUM BETA LACTAMASE (ESBL) RESISTANCE SNOMED Code(s): 250809989 Plan: 1patient presented to the hospital with back pain more than a week ago from initial evaluation in this patient who did have extensive lumbosacral spine surgery now has been taken back to the OR noticed to have hardware failure fracture of the vertebra s/p redo surgery and culture which has been finalized as ESBL E. coli 2-patient to continue with Invanz 1 g daily awaiting family decision regarding trach and PEG versus comfort Dictation was produced using [employer] dictation software. please excuse any grammatical, word or spelling errors. Time with Patient: Less than 30
--- NOTE | 2024-06-16 14:52 | P.PN ---
Subjective Progress Note Date: 06/15/24 Principal diagnosis: Reason for follow-up is lumbar surgical site infection ESBL E. coli Patient is a 58-year-old male with a past medical history significant for diabetes mellitus hypertension COPD atrial fibrillation sleep apnea initially presented to hospital with back pain has been diagnosed with L1-L3 fracture status post extensive surgery and surgical cultures came back positive with ESBL E. coli prompted this consultation. On today's evaluation that is 06/15/2024,the patient remains to be afebrile, patient is on ventilator FiO2 stable at 40% no significant purulent secretions through the ET already and the changes reported by the nursing staff the patient remains to be unresponsive on the vent not requiring any pressor support Patient white count is 5.8, creatinine is 0.34 Objective - Vital Signs Vital signs: Vital Signs Temp 98.4 F 06/15/24 12:00 Pulse 71 06/15/24 12:00 Resp 20 06/15/24 12:00 BP 98/57 06/15/24 12:00 Pulse Ox 100 06/15/24 12:00 FiO2 40 06/15/24 12:00 - Exam GENERAL DESCRIPTION: Middle-age male intubated on the vent RESPIRATORY SYSTEM: Unlabored breathing , decreased breath sounds at bases HEART: S1 S2 regular rate and rhythm , ABDOMEN: Soft , no tenderness EXTREMITIES: No edema feet - Labs CBC & Chem 7: 06/16/24 05:21 06/16/24 05:21 Labs: Abnormal Lab Results - Last 24 Hours (Table) 06/15/24 06/15/24 06/15/24 Range/Units 15:28 17:57 23:20 RBC (4.30-5.90) m/uL Hgb (13.0-17.5) gm/dL Hct (39.0-53.0) % MCHC (31.0-37.0) g/dL RDW (11.5-15.5) % APTT 75.0 H 49.0 H (22.0-30.0) sec ABG pH (7.35-7.45) ABG HCO3 (21-25) mmol/L ABG Total CO2 (19-24) mmol/L ABG O2 Saturation (94-97) % Creatinine (0.66-1.25) mg/dL POC Glucose (mg/dL) 111 H (70-110) mg/dL Calcium (8.4-10.2) mg/dL 06/15/24 06/16/24 06/16/24 Range/Units 23:26 04:58 05:21 RBC 3.84 L (4.30-5.90) m/uL Hgb 10.7 L (13.0-17.5) gm/dL Hct 34.6 L (39.0-53.0) % MCHC 30.8 L (31.0-37.0) g/dL RDW 16.3 H (11.5-15.5) % APTT (22.0-30.0) sec ABG pH 7.47 H (7.35-7.45) ABG HCO3 32 H (21-25) mmol/L ABG Total CO2 33 H (19-24) mmol/L ABG O2 Saturation 98.1 H (94-97) % Creatinine (0.66-1.25) mg/dL POC Glucose (mg/dL) 127 H (70-110) mg/dL Calcium (8.4-10.2) mg/dL 06/16/24 06/16/24 06/16/24 Range/Units 05:21 05:21 12:02 RBC (4.30-5.90) m/uL Hgb (13.0-17.5) gm/dL Hct (39.0-53.0) % MCHC (31.0-37.0) g/dL RDW (11.5-15.5) % APTT 53.3 H (22.0-30.0) sec ABG pH (7.35-7.45) ABG HCO3 (21-25) mmol/L ABG Total CO2 (19-24) mmol/L ABG O2 Saturation (94-97) % Creatinine 0.34 L (0.66-1.25) mg/dL POC Glucose (mg/dL) 129 H (70-110) mg/dL Calcium 8.1 L (8.4-10.2) mg/dL Microbiology - Last 24 Hours (Table) 06/14/24 11:45 Gram Stain - Preliminary Sputum Sputum Culture - Preliminary 06/12/24 17:40 Blood Culture - Preliminary Blood Assessment and Plan (1) Surgical site infection Current Visit: Yes Status: Acute Code(s): T81.49XA - INFECTION FOLLOWING A PROCEDURE, OTHER SURGICAL SITE, INIT SNOMED Code(s): 75680178 (2) Infection due to ESBL-producing Escherichia coli Current Visit: Yes Status: Acute Code(s): A49.8 - OTHER BACTERIAL INFECTIONS OF UNSPECIFIED SITE; Z16.12 - EXTENDED SPECTRUM BETA LACTAMASE (ESBL) RESISTANCE SNOMED Code(s): 752360049 Plan: 1patient presented to the hospital with back pain more than a week ago from initial evaluation in this patient who did have extensive lumbosacral spine surgery now has been taken back to the OR noticed to have hardware failure fracture of the vertebra s/p redo surgery and culture which has been finalized as ESBL E. coli 2-patient to continue with Invanz 1 g daily and monitor clinical course closely Dictation was produced using [employer] dictation software. please excuse any grammatical, word or spelling errors. Time with Patient: Less than 30
--- NOTE | 2024-06-16 15:11 | P.PN ---
Subjective Progress Note Date: 06/16/24 06/16/2024: Patient was seen for a follow-up. Patient continues to be sedated with propofol 20 mcg/kg/min. Also heparin running for atrial fibrillation. Patient's vitals are stable with blood pressure 129/73. Patient more easily arousable. Please refer to examination below. 06/15/2024: Patient was initially seen by Dr. Lorenzo Lopez. Please refer to his note for details. 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 Patient has history of atrial fibrillation and his anticoagulation Xarelto was held due to recent cervical issues and likely resulted in stroke. Patient is currently on heparin drip and pending PEG and trach placement. Patient was seen for a follow-up. Discussed with patient's nurse and patient's ex- in detail. Patient had undergone lumbar spinal surgery on 05/19/2024. He returned back to the ER on 06/06/2024 after he had a fall and twisted his back but did not land on his back or land on his knees(as per ED notes). Patient mentioned that his pain has increased. Patient's ex- at this time however completely denies patient having any falls. Patient was seen by Dr. Jeffrey who felt the screws has come close. Patient was found to have fracture of the lumbar spine (acute) without cord injury. He had lumbosacral spondylosis with radiculopathy and weakness of both lower extremities which was acute. Patient underwent open treatment with reduction L1 2 and L3 fractures. The lesion T10 pelvic posterior lateral instrumented fusion. Segmental instrumentation T10 to pelvis. Removal of hardware L2 and L3. Cement augmentation T9, T10, L1, L2 and L3 screws. T8 vertebroplasty to prevent P.J. K. Postoperatively it was felt patient was not moving his right side of the body. He underwent CT head on 06/10/2024 which revealed findings of acute/subacute CVA involving the left frontoparietal region. CTA of head and neck revealed no significant diameter reduction took on for the patient's symptoms. No large vessel occlusion noted. Patient has remained intubated. Currently on propofol 20 g per program per minute. Patient has just received oxycodone. Per nursing report when the sedation is decreased, he appears to be "mad". He does move the left arm and the left leg, but not right side of the body. He moves right leg very little but not the right arm. Some of the other workup during this hospital visit consisted of: Lipid panel is triglyceride 68, cholesterol is 56, LDL is 18 and HDL is 23 Hemoglobin A1c 6.6. The echo on 06/08/2024 is reported as ejection fraction of 25 [address]%. [address] head is reported as finding of acute/subacute CVA involving the left frontal parietal region. I personally reviewed CT and agree with the findings. CTA head and neck is read as no significant diameter reduction to account for the patient's symptoms. Area of hypoattenuation as described on the prior CT brain left frontal parietal region compatible with a finding of acute/subacute CVA. Repeat CT head 06/12/2024: Ongoing evolution of acute to subacute infarct over latral left frontal and parietal region with greater degree of hypodensity. Similar sulcal effacement. Minimal righward midline shift of 4mm vs 3mm measure on 06/10/24. No hemorrhagic transformation. Wound culture is positive for ESBL E. coli. Limited 2D echo was reported as mild reduced left ventricle systolic function left atrial enlargement. Most recent repeat CT of the head on 06/14/2024 is reported as left MCA territory evolving acute/subacute CVA. No evidence for hemorrhagic conversion. I personally reviewed the CT and I agree with the report. Objective - Vital Signs Vital signs: Vital Signs Temp 98.0 F 06/16/24 12:00 Pulse 85 06/16/24 14:00 Resp 13 06/16/24 14:00 BP 116/92 06/16/24 12:00 Pulse Ox 98 06/16/24 14:00 FiO2 40 06/16/24 12:00 Intake & Output 06/15/24 06/16/24 06/16/24 18:59 06:59 18:59 Intake Total 1066.089 939.041 510 Output Total 770 1070 545 Balance 296.089 -130.959 -35 Weight 114.8 kg 112.9 kg Intake: IV 130 110 130 Ertapenem 1 gm In Sodium 50 Chloride 0.9% 50 ml @ 100 mls/hr IVPB DAILY [facility] Rx #:[id number] kvo 130 110 80 Intake, IV Titration 315.089 379.041 Amount Heparin Sod,Pork in 0.45% 215.089 250 NaCl 25,000 unit In 0.45 % NaCl 1 250ml.bag @ 8.65 UNITS/KG/HR 9.999 mls/hr IV .Q24H [facility] Rx#: [id number] propofoL 1,000 mg In 100.000 129.041 Empty Bag 1 bag @ 15 MCG/ KG/MIN 10.305 mls/hr IV . Q9H43M [facility] Rx#:[id number] Tube Feeding 471 360 320 Other 150 90 60 Output: Urine 770 1070 545 Other: Voiding Method Indwelling Catheter Indwelling Catheter Indwelling Catheter # Voids 2 # Bowel Movements 0 ABP, PAP, CO, CI - Last Documented Arterial Blood Pressure 126/74 - Exam Patient is intubated, partly sedated on propofol 20 mcg/kg per minute. Patient appears comfortable at this time. He did open his eyes to calling his name, but then closed it. Patient does move his left arm and left leg spontaneously and with painful stimuli. Patient minimally moves the right arm and the leg to painful stimuli and mainly moves left arm and left leg with noxious stimulus on the right side. Obviously less movement of the right side of the body. After examination, he was opening his eyes much more frequently, would not cooperate with examination. When patient was asked to squeeze the left hand to make a oncology account specialist, he would move his arm away. Patient did make eye contact, and turned his head towards the right and the left towards the examiner. Pupils are equal, round and reacting. Muscle examination as above. Other testing could not be performed. Patient has Babinski on the right side, but downgoing on the left. - Labs CBC & Chem 7: 06/16/24 05:21 06/16/24 05:21 Labs: Abnormal Lab Results - Last 24 Hours (Table) 06/15/24 06/15/24 06/15/24 Range/Units 15:28 17:57 23:20 RBC (4.30-5.90) m/uL Hgb (13.0-17.5) gm/dL Hct (39.0-53.0) % MCHC (31.0-37.0) g/dL RDW (11.5-15.5) % APTT 75.0 H 49.0 H (22.0-30.0) sec ABG pH (7.35-7.45) ABG HCO3 (21-25) mmol/L ABG Total CO2 (19-24) mmol/L ABG O2 Saturation (94-97) % Creatinine (0.66-1.25) mg/dL POC Glucose (mg/dL) 111 H (70-110) mg/dL Calcium (8.4-10.2) mg/dL 06/15/24 06/16/24 06/16/24 Range/Units 23:26 04:58 05:21 RBC 3.84 L (4.30-5.90) m/uL Hgb 10.7 L (13.0-17.5) gm/dL Hct 34.6 L (39.0-53.0) % MCHC 30.8 L (31.0-37.0) g/dL RDW 16.3 H (11.5-15.5) % APTT (22.0-30.0) sec ABG pH 7.47 H (7.35-7.45) ABG HCO3 32 H (21-25) mmol/L ABG Total CO2 33 H (19-24) mmol/L ABG O2 Saturation 98.1 H (94-97) % Creatinine (0.66-1.25) mg/dL POC Glucose (mg/dL) 127 H (70-110) mg/dL Calcium (8.4-10.2) mg/dL 06/16/24 06/16/24 06/16/24 Range/Units 05:21 05:21 12:02 RBC (4.30-5.90) m/uL Hgb (13.0-17.5) gm/dL Hct (39.0-53.0) % MCHC (31.0-37.0) g/dL RDW (11.5-15.5) % APTT 53.3 H (22.0-30.0) sec ABG pH (7.35-7.45) ABG HCO3 (21-25) mmol/L ABG Total CO2 (19-24) mmol/L ABG O2 Saturation (94-97) % Creatinine 0.34 L (0.66-1.25) mg/dL POC Glucose (mg/dL) 129 H (70-110) mg/dL Calcium 8.1 L (8.4-10.2) mg/dL Microbiology - Last 24 Hours (Table) 06/14/24 11:45 Gram Stain - Preliminary Sputum Sputum Culture - Preliminary 06/12/24 17:40 Blood Culture - Preliminary Blood Assessment and Plan Assessment: 58-year-old gentleman with history of atrial fibrillation status post cardioversion on Xarelto, diabetes mellitus, heart failure, cervical myelopathy, back pain and had recent L2 to pelvis decompression and fusion of bilateral open SI joint on 05/19/2024 who had a recent fall with back pain. Patient had L2-L3 fracture and has hardware failure of the thoracic spine to pelvis. On 06/09/2024, patient had L1-L2 and L3 revision T10 to pelvis posterior lateral instrumented fusion with hardware removal. His Xarelto was held 48 hours and it seems last dose was on 06/08/2024 per the nurse. On 06/10/2024, when the sedation was held the patient was not moving the right side and CT of the head shows acute to subacute over the left frontal parietal region. Acute to subacute stroke (seems more subacute) over the left frontal parietal region Altered mental status due to above, sepsis (Wound culture is positive for ESBL E. coli.) Recent fall with back pain and it seems that the patient has L2-L3 Fracture s/p revision T10 to Pelvis posterior lateral instrument fusion with hardware removal Intubated on a ventilator History of atrial fibrillation status post cardioversion and was on Xarelto and the Xarelto was held for the last 48 hours but currently on heparin drip History of cervical myelopathy status post C2-T2 decompression and fusion Recent recent L2 to pelvis decompression and fusion of bilateral open SI joint on 05/19/2024 History of Systolic Heart failure and recent 2D echo on 06/08/24 has EF 25-30% Diabetes mellitus and HbA1c: 6.6 Chronic hypertension History of hyperlipidemia History of obstructive sleep apnea Former tobacco use Plan: Patient is on heparin drip for the A-fib. From neurology perspective the patient can resume Xarelto. Dr. Lopez has spoken with the ICU nurse and she stated that per the ICU attending, remain on heparin drip for now, until he undergoes a trach and PEG. Is on Lipitor 40mg qhs which is sufficient for secondary stroke prophylaxis. Patient's mentation has much improved as compared to yesterday. Patient was making eye contact, tracking to the sides. Patient has normal strength on the left it appears, but definitely Hemiparetic on the right side. Continue neurochecks Cardiac monitoring PT OT are consulted paretic on the right side. Cardiology team is on board Will defer the rest of the medical management to primary and other specialists DVT prophylaxis: On heparin drip. Keep the PTT between 45 and 60, as per Dr. Lopez recommendation. Condition is very guarded. Discussed with patient's nurse in detail. Family is consenting for trach and P EG possibly to be done tomorrow.
[2024-06-16 17:48] LABS: Glucose,Whole Blood 125 mg/dL (70-110)
--- NOTE | 2024-06-16 21:00 | PN ---
PROGRESS NOTE SUBJECTIVE: Dr. Jeffrey cleared him from his service, wants to be transferred to my service. He had a CVA during surgery. He is on mechanical ventilator, possible trach and PEG. Hemoglobin is 10.7, white count is 5.4, sodium 137, potassium 3.8, CO2 is 27. Wound cultures positive for ESBL E coli, ertapenem. Chest x-ray is negative. OBJECTIVE: VITAL SIGNS: Blood pressure 118/86, temperature 98, respiratory rate 21, and temp 98.9. NECK: Supple. LUNGS: Scattered rhonchi and wheeze. ABDOMEN: Soft. NEUROLOGIC: Cranial nerves intact. Labs reviewed. Acute hypoxemic respiratory failure, status post fall with L2 vertebral compression fractures with revision of T10 to pelvis decompression and fusion with stabilization. Postop ventilator, ESBL E coli wound infection, acute blood loss anemia. Preoperatively, he had 5 units of blood, FFP, hypotension, heart failure, chronic atrial fibrillation, hypertension, dyslipidemia, diabetes, sleep apnea, COPD, nicotine. The patient does not want to . I suspect he would agree to trach and a PEG tube placement to save his life and started to going on comfort cares. After my discussion with him prior to surgery, what we would want. Prognosis guarded. MMODL / IJN: [id number] /
[2024-06-16 23:08] LABS: Glucose,Whole Blood 111 mg/dL (70-110)
[2024-06-17 04:42] LABS: ABG Base Excess 7.5 mmol/L; ABG HCO3 32 mmol/L (21-25); ABG Oxygen Saturation 97.9 % (94-97); ABG PCO2 44 mmHg (35-45); ABG PH 7.47 (7.35-7.45); ABG PO2 91 mmHg (83-108); ABG TCO2 33 mmol/L (19-24); Allen Test Performed? Yes
[2024-06-17 04:50] LABS: Anisocytosis Slight; Basophils % (A) 1 %; Eosinophils # (A) 0.2 k/uL (0-0.7); Eosinophils % (A) 2 %; HCT 35.3 % (39.0-53.0); HGB 10.9 gm/dL (13.0-17.5); Hypochromasia Marked; Lymphocytes # (A) 0.9 k/uL (1.0-4.8); Lymphocytes % (A) 13 %; MCH 27.8 pg (25.0-35.0); MCHC 30.9 g/dL (31.0-37.0); MCV 90.1 fL (80.0-100.0); Mean Platelet Volume 7.2; Monocytes # (A) 0.7 k/uL (0-1.0); Monocytes % (A) 9 %; Neutrophils # (A) 5.3 k/uL (1.3-7.7); Neutrophils % (A) 74 %; Platelet Count 494 k/uL (150-450); Poikilocytosis Slight; RBC 3.91 m/uL (4.30-5.90); RDW 16.5 % (11.5-15.5); WBC 7.2 k/uL (3.8-10.6)
[2024-06-17 05:25] LABS: African American GFR (CKD) >90 (>60 ml/min/1.73 sqM); Anion Gap 6 mmol/L; Blood Urea Nitrogen 15 mg/dL (9-20); Calcium 8.2 mg/dL (8.4-10.2); Carbon Dioxide 27 mmol/L (22-30); Chloride 104 mmol/L (98-107); Glucose 108 mg/dL (74-99); Non-African American GFR(CKD) >90 (>60 ml/min/1.73 sqM); Potassium 3.6 mmol/L (3.5-5.1); Sodium 137 mmol/L (137-145)
[2024-06-17 05:25] LABS: Glucose,Whole Blood 120 mg/dL (70-110)
[2024-06-17] MEDS: POTASSIUM BICARBONATE/CIT AC 20 MEQ TABLET.EFF NG-TUBE SCH ×2 (06:32→08:41)
[2024-06-17] MEDS ORDERED: HEPARIN SODIUM 1,000 UN/ML (10ML VL) IV PRN (07:12)
[2024-06-17] MEDS ORDERED: Potassium Replacement Protocol 1 EACH MISC MISCELLANE PRN (07:56)
--- NOTE | 2024-06-17 08:07 | XR ---
EXAMINATION TYPE: XR chest 1V portable DATE OF EXAM: 06/17/2024 COMPARISON: 06/16/2024 HISTORY: SOB, Follow Up FINDINGS: Indwelling tubes and catheters are unchanged. Technique cardiomegaly with pulmonary venous congestion. Improving aeration left perihilar region. Stable appearance of the cardio-mediastinal structures at this time. Pleural effusion unchanged. IMPRESSION: 1. Technique cardiomegaly with pulmonary venous congestion. Improving aeration left perihilar region .
--- NOTE | 2024-06-17 10:01 | P.PN ---
Subjective Progress Note Date: 06/17/24 Principal diagnosis: CVA. Patient is a 58-year-old white male with past medical history significant for obstructive sleep apnea with home CPAP, COPD, ex tobacco smoker, marijuana smoker, atrial fibrillation with previous cardioversion and anticoagulated on Xarelto, diabetes mellitus, hypertension, heart failure, and previous spinal surgeries. His primary care provider is Dr. Deuce Brito. He is currently intubated to the mechanical ventilator, unable to provide any information for HPI. Of note, patient recently underwent an L2 to pelvis posterior lateral decompression and fusion on 05/19/2024 at [facility]. During this admission, he initially was recovered in the intensive care unit. Technically, difficult to extubate, and did require BiPAP support immediately after extubation. He was eventually discharged home on 05/26/2024. Patient returned the emergency department on 06/06/2024. On review of the ER documentation, he had a fall while at home. CT of the lumbar spine demonstrated new compression fracture of L2 vertebral body with compression of the vertebral body down to the pedicle screws bilaterally and loosening the left pedicle screw. New left pedicle/transverse process of L2 and L3 fractures around the hardware with mild displacement. Fractures of the right transverse process of L2 and L3. Likely postsurgical subcutaneous gas in the surgical bed. Patient underwent revision thoracic T10 to pelvis decompression fusion yesterday. Intraoperatively, patient had an EBL of 1 L. He has received a total of 5 units of PRBCs, 1 FFP, and 1 pack platelets. He was sent to the intensive care unit postoperatively. He remains on the mechanical ventilator. Chest x-ray shows the endotracheal tube approximately 4.3 cm above the shashank. There is cardiomegaly with pulmonary vascular congestion suggested. No pleural effusions, pneumothoraces, focal consolidations. Initial ABG had a PaO2 of 80, pCO2 of 61, pH of 7.27. This was done on original ventilator settings of assist-control, respiratory rate 14, tidal volume 500, FiO2 1 9%, and PEEP of 5. My supervising physician is already increased the patient's respiratory rate to 20. He is currently synchronous with mechanical ventilator. There is a moderate amount of clear to white endotracheal secretions. Peak pressures 23. He is sedated with propofol which is currently infusing at 50 mcg/kg/min. He is fairly unarousable. Will withdraw to painful stimuli in all 4 extremities. There is also norepinephrine infusing at 0.02 mcg/kg/min. There is a MAP goal of 80 mmHg to support [employer] perfusion. LR is infusing at 10 MLS per hour. There is a Hemovac with a total of 220 serosanguineous output since surgery. We are awaiting postoperative labs. Preoperatively, CBC: WBC count 9.4, hemoglobin 9.6, hematocrit 32.5, platelets 516. Preoperative CMP: Sodium 137, potassium 4.1, chloride 104, serum bicarb 27, BUN 18, creatinine 0.61, glucose 143. LFTs unremarkable. Receiving prophylactic cefazolin. Note that preoperatively, patient did have a cardiac evaluation. Repeat echocardiogram shows a severely reduced left ventricular ejection fraction of 25 to 30% as well as mild mitral and tricuspid regurgitation. Heart rhythm is atrial fibrillation with controlled ventricular response. Normally anticoagulated on Xarelto, however, this is on hold for surgery. Progress note dated June 11, 2024. 58-year-old male recently had additional back surgery, including a T10 to pelvic decompression and fusion. Please see my consultation from yesterday. Today is postop day #2. The patient was brought back to the ICU on the ventilator. Will be woke him up for the daily interruption of sedation yesterday, it was noted that he was not moving his right side. He was sent for an immediate CT scan without contrast. It showed a subacute left frontoparietal CVA. It was isch emic in nature. He remains on mechanical ventilator. He is on volume assist- control, rate 20, tidal line 500, FiO2 50% to be dropped down to 40%, and PEEP of 5. Blood gases show pO2 118, pCO2 37, pH is 7.47. The patient is taking propofol at 50 mcg/kg/min, saline at KVO norepinephrine at 2 mcg/min IV heparin, and vital HP at 20 cc an hour with a goal of 37 cc. White count 8.9, hemoglobin 10, hematocrit 32.3, platelet count 262,000. PTT is 36.6. Sodium 136, potassium 4.2, chlorides 105, CO2 24, BUN 14, creatinine 0.37. Glucose is 138. Hemoglobin A1c is 6.6. Chest x-ray is essentially within normal range today for cardiomegaly. Progress note dated June 12, 2024. 58-year-old male seen again in room 255. The patient remains on mechanical ventilation. He is on volume assist-control, rate 20, tidal volume 500, FiO2 40%, PEEP of 5. Blood gases show pO2 of 80, pCO2 41, pH is 7.49. This blood gases consistent with metabolic alkalosis. The patient is on propofol at 25 mcg/kg/min, heparin via weight-based protocol, and vital HP at 37 cc an hour, which is goal. The patient had evidence of E. coli from the wound culture, the Escherichia coli is ESBL E. coli. For that reason he is on ertapenem. We will attempt a daily interruption of sedation. The patient did poorly with this holiday yesterday. His mental status was poor, but he still has increased secretions. He may eventually need tracheostomy and PEG tube placement. White count 5.4, hemoglobin 10.4, hematocrit 33.8, platelet count 338,000. PTT is 58.6. Sodium 139, potassium 3.5, chlorides 107, CO2 31, BUN 17, creatinine 0.37. Glucose is 108. Calcium 8.2. Chest x-ray shows a pattern of pulmonary vascular congestion, and bilateral effusions. Progress note dated June 14, 2024. 58-year-old male seen again in room 255. The patient remains on mechanical ventilation, and has done very poorly with his sedation holidays. He may end up with a tracheostomy and peg tube placement. Currently, he is on volume assist- control, rate 20, tidal volume 500, FiO2 40%, PEEP of 5. Blood gases show pO2 of 75, pCO2 of 41, pH is 7.49. He is getting saline at KVO, propofol at 20 mcg/kg/min, and IV heparin. He is on vital high-protein at 37 cc an hour, which is goal. He is also getting ertapenem, for an ESBL E. coli wound infection. Labs include a white count of 6, hemoglobin 10.8, hematocrit 34.6, and a hemant telet count of 370,000. Sodium 138, potassium 3.8, chlorides 107, CO2 27, BUN 18, and creatinine 0.35. Glucose is 133. Calcium 8.5. Magnesium 1.9. Chest x-ray shows unchanged chest x-ray with stable tubes and lines. Brain CT shows left MCA territory involving acute/subacute CVA, with no evidence for hemorrhagic conversion. Progress note dated June 15, 2024. 58-year-old male seen again in room 255. He remains on mechanical ventilation. He is on volume assist-control, rate 20, tidal line 500, FiO2 40%, PEEP of 5. Blood gases show pO2 of 81, pCO2 41, pH is 7.5. Blood gases are consistent with metabolic alkalosis. He is currently on propofol at 20 mcg/kg/min, heparin via weight-based protocol, saline at KVO, and vital high-protein at 37, which is goal. The patient will have a consult placed to surgery, for tracheostomy and PEG tube placement. His peak airway pressure is 19 cm of water. His plateau pressures 14 cm of water. The patient's airways resistance is 4.63 cmH2O per liters per second. White count is 5.8, hemoglobin 10.3, hematocrit 33.3, platelet count 3 and 44,000. Sodium 137, potassium 4, chloride 106, CO2 26, BUN 19, and creatinine 0.34. Glucose is 125. Calcium 8.2. Wound cultures are positive for ESBL Escherichia coli. Chest x-ray shows scattered bilateral infiltrates, which are unchanged. Progress note dated June 16, 2024. 58-year-old male seen again in room 255. He remains on mechanical ventilator. I did have a conversation with his Sister Altagracia today, about making the decision to proceed with tracheostomy and PEG tube placement. She was going to get back with us later today. He is on volume assist-control, rate 20, tidal volume 500, FiO2 40%, PEEP of 5. Blood gases show pO2 of 95, pCO2 43, pH is 7.47. The patient is on IV heparin via weight-based protocol, propofol at 20 mcg/kg/min, and vital AF at goal, which is 40 cc an hour. Labs include a white count 5.4, hemoglobin 10.7, hematocrit 34.6, and platelet count 435,000. PTT is 53.3. Sodium 137, potassium 3.8, chlorides 105, CO2 27, BUN 17, and creatinine 0.34. Wound cultures, were positive for ESBL Escherichia coli. For that reason, he is on ertapenem. Portable chest x-ray is largely unchanged. Progress note dated June 17, 2024. 58-year-old male seen in room 255. He remains on mechanical ventilator. He is on volume assist-control, rate 20, tidal volume 500, FiO2 40%, PEEP of 5. Blood gases show pO2 of 91, pCO2 44, pH is 7.47. He remains on propofol at 20 mcg/kg/min heparin via weight-based protocol, and saline at KVO. He is getting vital HP at 40, which is goal. I had a conversation with his Sister Altagracia yesterday, because I would like to move forward with tracheostomy tube insertion and PEG tube placement. Apparently, another sibling is coming into the hospital today to discuss those surgical procedures. White count 7.2, hemoglobin 10.9, hematocrit 35.3, and platelet count 494,000. PTT is 42.7. Sodium 137, potassium 3.6, chlorides 104, CO2 27, BUN 15, creatinine 0.34. Calcium 8.2. Glucose 120. Wound cultures from June 09, are positive for ESBL Escherichia coli. Chest x-ray shows evidence of cardiomegaly, mild pulmonary vascular c ongestion. Objective - Vital Signs Vital signs: Vital Signs Temp 99.0 F 06/17/24 05:00 Pulse 104 H 06/17/24 08:23 Resp 20 06/17/24 07:00 BP 108/82 06/16/24 20:00 Pulse Ox 98 06/17/24 07:00 FiO2 40 06/17/24 07:59 Intake & Output 06/16/24 06/17/24 06/17/24 18:59 06:59 18:59 Intake Total 1141.037 863.073 152.676 Output Total 940 1210 40 Balance 201.037 -346.927 112.676 Weight 111.8 kg Intake: IV 180 90 Ertapenem 1 gm In Sodium 50 Chloride 0.9% 50 ml @ 100 mls/hr IVPB DAILY [facility] Rx #:[id number] kvo 130 90 Intake, IV Titration 351.037 323.073 112.676 Amount Heparin Sod,Pork in 0.45% 243.136 223.073 66.99 NaCl 25,000 unit In 0.45 % NaCl 1 250ml.bag @ 8.65 UNITS/KG/HR 9.999 mls/hr IV .Q24H [facility] Rx#: [id number] propofoL 1,000 mg In 107.901 100 45.686 Empty Bag 1 bag @ 15 MCG/ KG/MIN 10.305 mls/hr IV . Q9H43M [facility] Rx#:[id number] Tube Feeding 520 360 40 Other 90 90 Output: Urine 940 1210 40 Other: Voiding Method Indwelling Catheter Indwelling Catheter # Bowel Movements 0 ABP, PAP, CO, CI - Last Documented Arterial Blood Pressure 126/73 - Exam No acute distress, sedated, with an orally placed endotracheal tube. HEENT examination is grossly unremarkable. Mucous membranes are moist. No oral lesions. Neck supple. Full range of motion. No adenopathy thyromegaly or neck vein distention. Cardiovascular examination reveals regular rhythm rate. S1-S2 normal. No S3 or S4. No discernible murmur noted. Lungs reveal mostly clear breath sounds. Minimal scattered rhonchi. No wheezes or crackles. Breath sounds equal. Saturations are more than adequate. Abdomen soft bowel sounds are heard. No masses or tenderness. Extremities are intact. No cyanosis clubbing or edema. Skin is without rash or lesion. Neurologic examination cannot be assessed at this time. - Labs CBC & Chem 7: 06/17/24 04:45 06/17/24 04:45 Labs: Abnormal Lab Results - Last 24 Hours (Table) 06/16/24 06/16/24 06/16/24 Range/Units 12:02 17:47 23:07 RBC (4.30-5.90) m/uL Hgb (13.0-17.5) gm/dL Hct (39.0-53.0) % MCHC (31.0-37.0) g/dL RDW (11.5-15.5) % Plt Count (150-450) k/uL Lymphocytes # (1.0-4.8) k/uL APTT (22.0-30.0) sec ABG pH (7.35-7.45) ABG HCO3 (21-25) mmol/L ABG Total CO2 (19-24) mmol/L ABG O2 Saturation (94-97) % Creatinine (0.66-1.25) mg/dL Glucose (74-99) mg/dL POC Glucose (mg/dL) 129 H 125 H 111 H (70-110) mg/dL Calcium (8.4-10.2) mg/dL 06/17/24 06/17/24 06/17/24 Range/Units 04:35 04:45 04:45 RBC 3.91 L (4.30-5.90) m/uL Hgb 10.9 L (13.0-17.5) gm/dL Hct 35.3 L (39.0-53.0) % MCHC 30.9 L (31.0-37.0) g/dL RDW 16.5 H (11.5-15.5) % Plt Count 494 H (150-450) k/uL Lymphocytes # 0.9 L (1.0-4.8) k/uL APTT (22.0-30.0) sec ABG pH 7.47 H (7.35-7.45) ABG HCO3 32 H (21-25) mmol/L ABG Total CO2 33 H (19-24) mmol/L ABG O2 Saturation 97.9 H (94-97) % Creatinine 0.34 L (0.66-1.25) mg/dL Glucose 108 H (74-99) mg/dL POC Glucose (mg/dL) (70-110) mg/dL Calcium 8.2 L (8.4-10.2) mg/dL 06/17/24 06/17/24 Range/Units 04:45 05:23 RBC (4.30-5.90) m/uL Hgb (13.0-17.5) gm/dL Hct (39.0-53.0) % MCHC (31.0-37.0) g/dL RDW (11.5-15.5) % Plt Count (150-450) k/uL Lymphocytes # (1.0-4.8) k/uL APTT 42.7 H (22.0-30.0) sec ABG pH (7.35-7.45) ABG HCO3 (21-25) mmol/L ABG Total CO2 (19-24) mmol/L ABG O2 Saturation (94-97) % Creatinine (0.66-1.25) mg/dL Glucose (74-99) mg/dL POC Glucose (mg/dL) 120 H (70-110) mg/dL Calcium (8.4-10.2) mg/dL Microbiology - Last 24 Hours (Table) 06/14/24 11:45 Gram Stain - Preliminary Sputum Sputum Culture - Preliminary Assessment and Plan Assessment: Status post fall, with L2 vertebral body compression fracture, L2-L3 right-sided transverse process fractures, and L2-L3 left-sided pedicle/transverse process fractures. Status postoperative day #7 following a revision T10 to pelvis decompression and fusion with stabilization. Routine postoperative mechanical ventilator management. ESBL Escherichia coli wound infection. Recent L2 to pelvis posterior lateral decompression and fusion on 05/19/2024. Acute blood loss anemia, patient has received a total of 5 units of PRBCs perioperatively, 1 pack platelets, and is going to receive 1 unit FFP. Hypotension, resolved. Heart failure with reduced ejection fraction. Chronic atrial fibrillation. History of hypertension. History of hyperlipidemia. History of diabetes mellitus. Obesity, with a BMI of 38.4 kg/m. History of obstructive sleep apnea. Chronic obstructive pulmonary disease, stable. Former tobacco smoker. Remote history of prior C2-T2 Decompression and fusion. Plan: Plan dated June 11, 2024. The patient remains in the intensive care unit, on the mechanical ventilator. The patient did not do well yesterday with his daily interruption of sedation. It will be tried again today. The patient's FiO2 was reduced from 50%, down to 40%. The pO2 on the blood gas was 118. The patient continues on propofol at 50 mcg/kg/min, saline at KVO, and norepinephrine at 2 mcg/min. The patient is also receiving IV heparin via weight-based protocol, and vital high-protein, at 20 cc an hour, with a goal of 37 cc. The patient was discovered to have a left frontal parietal CVA, which is thought to be subacute. He is postop day #2. Labs, x-rays, and all medications are reviewed. Plan dated June 13, 2024. The patient remains in the intensive care unit. Yesterday, he did poorly with his sedation holiday. He has lots of airway secretions, and his mental status was poor. For that reason, he was resedated. We will attempt another sedation holiday today. The wound cultures, from his back, show evidence of ESBL Escherichia coli. For that reason he is on ertapenem. He continues on propofol at 25 mcg/kg/min, heparin via weight-based protocol, and vital HP at 37 cc an hour which is goal. Blood gases show pO2 of 80, pCO2 41, pH is 7.49. This blood gases consistent with metabolic alkalosis. Labs, x-rays, and medications are reviewed. The patient's overall prognosis remains guarded. We will continue to follow make recommendations along the way. Plan dated June 14, 2024. Unfortunately, every time we do a sedation holiday, the patient's neurologic status, does not improve. The patient also has lots of airway secretions. Anyway, today, the patient will not have a daily interruption of sedation. He continues on ertapenem for his ESBL Escherichia coli wound infection. He is getting nourished with vital high-protein at 37 cc an hour which is goal. He continues on IV heparin. The most recent brain CT is reviewed. The patient is on propofol at 20 mcg/kg/min. Blood gases showed metabolic alkalosis. We will continue to follow make recommendations along the way. The patient may need a tracheostomy and PEG tube placement, should he not show any additional improvement. Plan dated June 15, 2024. The patient has had at least 3 or 4 episodes of sedation holidays, with no neurologic improvement, and with increased airway secretions. The patient becomes agitated, tachypneic, tachycardic, and hypertensive. The patient has to be resedated. The patient will need a tracheostomy and PEG tube placement. We will contact the family if possible. Labs, x-rays, and medications are reviewed. The patient's overall prognosis remains guarded. He continues on ertapenem for his ESBL Escherichia coli wound infection. Labs, x-rays, and all medications are reviewed. Prognosis is guarded. Blood gases are consistent with a metabolic alkalosis. Plan dated June 16, 2024. The patient is seen today in room 255. He basically is essentially unchanged. I did have a conversation with his sister Altagracia, who apparently resides in the [facility]. I have asked her to make a decision about tra cheostomy and PEG tube placement. I would like to do that tomorrow if possible. Labs, x-rays, medications are reviewed. The patient does poorly on a sedation holiday. The patient was admitted after surgery, and had a left frontal temporal CVA. He continues on IV heparin and propofol. Labs, x-rays, and all medications have been reviewed. Prognosis is guarded. Plan dated June 17, 2024. The patient is seen today in room 255. He remains on mechanical ventilator. When the patient is off sedation, he does not appropriately respond. In addition, there is an issue with significant secretions. The patient should really proceed with a tracheostomy and PEG tube placement. I am having a hard time getting permission from the family members, including his sister Altagracia. Apparently another sibling will be by to see him today. We will ask him about that. He continues on propofol, and heparin via weight-based protocol. He is getting vital HP at 40 which is goal. Blood gases are very reasonable. Prognosis is guarded. Another option would be extubation, with primarily comfort care. Time with Patient: Greater than 30
[2024-06-17 11:43] LABS: Glucose,Whole Blood 110 mg/dL (70-110)
--- NOTE | 2024-06-17 13:16 | P.PN ---
Subjective Progress Note Date: 06/17/24 CHIEF COMPLAINT: Fall HISTORY OF PRESENT ILLNESS: Patient remains in the ICU intubated and on mechanical ventilation. Afebrile. WBC 7.2 hgb 10.9 PHYSICAL EXAM: VITAL SIGNS: Reviewed. GENERAL: no acute distress. ABDOMEN: Soft. Nondistended. Nontender. NEUROLOGIC: Intubated ASSESSMENT: 1. Respiratory failure. Difficulty weaning from the vent 2. Moderate protein calorie malnutrition 3. Status post spinal surgery 4. CVA PLAN: -Awaiting family's decision regarding tracheostomy and PEG tube placement -Continue supportive care Physician Home Sales Consultant note has been reviewed by physician. Signing provider agrees with the documented findings, assessment, and plan of care. Objective - Vital Signs Vital signs: Vital Signs Temp 98.8 F 06/17/24 08:00 Pulse 83 06/17/24 12:32 Resp 20 06/17/24 11:00 BP 108/82 06/16/24 20:00 Pulse Ox 99 06/17/24 11:00 FiO2 40 06/17/24 12:25 Intake & Output 06/16/24 06/17/24 06/17/24 18:59 06:59 18:59 Intake Total 1141.037 863.073 408.341 Output Total 940 1210 510 Balance 201.037 -346.927 -101.659 Weight 111.8 kg 111.8 kg Intake: IV 180 90 90 Ertapenem 1 gm In Sodium 50 50 Chloride 0.9% 50 ml @ 100 mls/hr IVPB DAILY [facility] Rx #:[id number] kvo 130 90 40 Intake, IV Titration 351.037 323.073 208.341 Amount Heparin Sod,Pork in 0.45% 243.136 223.073 66.99 NaCl 25,000 unit In 0.45 % NaCl 1 250ml.bag @ 8.65 UNITS/KG/HR 9.999 mls/hr IV .Q24H [facility] Rx#: [id number] propofoL 1,000 mg In 107.901 100 141.351 Empty Bag 1 bag @ 15 MCG/ KG/MIN 10.305 mls/hr IV . Q9H43M [facility] Rx#:[id number] Tube Feeding 520 360 80 Other 90 90 30 Output: Urine 940 1210 510 Other: Voiding Method Indwelling Catheter Indwelling Catheter Indwelling Catheter # Bowel Movements 0 ABP, PAP, CO, CI - Last Documented Arterial Blood Pressure 116/74 - Labs CBC & Chem 7: 06/17/24 04:45 06/17/24 04:45 Labs: Abnormal Lab Results - Last 24 Hours (Table) 06/16/24 06/16/24 06/17/24 Range/Units 17:47 23:07 04:35 RBC (4.30-5.90) m/uL Hgb (13.0-17.5) gm/dL Hct (39.0-53.0) % MCHC (31.0-37.0) g/dL RDW (11.5-15.5) % Plt Count (150-450) k/uL Lymphocytes # (1.0-4.8) k/uL APTT (22.0-30.0) sec ABG pH 7.47 H (7.35-7.45) ABG HCO3 32 H (21-25) mmol/L ABG Total CO2 33 H (19-24) mmol/L ABG O2 Saturation 97.9 H (94-97) % Creatinine (0.66-1.25) mg/dL Glucose (74-99) mg/dL POC Glucose (mg/dL) 125 H 111 H (70-110) mg/dL Calcium (8.4-10.2) mg/dL 06/17/24 06/17/24 06/17/24 Range/Units 04:45 04:45 04:45 RBC 3.91 L (4.30-5.90) m/uL Hgb 10.9 L (13.0-17.5) gm/dL Hct 35.3 L (39.0-53.0) % MCHC 30.9 L (31.0-37.0) g/dL RDW 16.5 H (11.5-15.5) % Plt Count 494 H (150-450) k/uL Lymphocytes # 0.9 L (1.0-4.8) k/uL APTT 42.7 H (22.0-30.0) sec ABG pH (7.35-7.45) ABG HCO3 (21-25) mmol/L ABG Total CO2 (19-24) mmol/L ABG O2 Saturation (94-97) % Creatinine 0.34 L (0.66-1.25) mg/dL Glucose 108 H (74-99) mg/dL POC Glucose (mg/dL) (70-110) mg/dL Calcium 8.2 L (8.4-10.2) mg/dL 06/17/24 Range/Units 05:23 RBC (4.30-5.90) m/uL Hgb (13.0-17.5) gm/dL Hct (39.0-53.0) % MCHC (31.0-37.0) g/dL RDW (11.5-15.5) % Plt Count (150-450) k/uL Lymphocytes # (1.0-4.8) k/uL APTT (22.0-30.0) sec ABG pH (7.35-7.45) ABG HCO3 (21-25) mmol/L ABG Total CO2 (19-24) mmol/L ABG O2 Saturation (94-97) % Creatinine (0.66-1.25) mg/dL Glucose (74-99) mg/dL POC Glucose (mg/dL) 120 H (70-110) mg/dL Calcium (8.4-10.2) mg/dL Microbiology - Last 24 Hours (Table) 06/14/24 11:45 Gram Stain - Final Sputum Sputum Culture - Final
--- NOTE | 2024-06-17 14:15 | PN ---
PROGRESS NOTE SUBJECTIVE: This is a 58-year-old male, on a mechanical ventilator. He is supposed to get a trach and PEG, trach and PEG has been ordered. Apparently, came in to the hospital for pinning today. I know the patient very well for long-term and he wanted everything done to save him before the second surgery. In the hospital he said to me he is full code, I believe he want a trach and PEG instead of just being made comfort care, he would not want this. OBJECTIVE: VITAL SIGNS: Blood pressure 108/82, pulse 104, temp 99, respiratory rate 18 to 20, O2 40. MUSCULOSKELETAL: He has moved his right arm yesterday which is new. He is responding more to the nurses when trying to wean him off the vent. HEART: S1, S2. LUNGS: Scattered wheeze. EXTREMITIES: 2+ edema. LABORATORY DATA: Hemoglobin is 10.3, white count is 7.2. He has acute respiratory failure, on the ventilator status post revision surgery. He has ESBL E coli wound infection, following portion of T10 to pelvis decompression, fusion, stabilization. He had 5 units of blood perioperatively. He got fresh frozen plasma, heart failure with reduced ejection fraction, chronic atrial fibrillation, hypertension, severe COPD. Continue current treatments. Hopefully get trach and PEG or wean him off the vent. I do not believe he would want comfort care if there is a chance he could make it. CASANDRA / MARY ANN: [phone] /
[2024-06-17 18:18] LABS: Glucose,Whole Blood 114 mg/dL (70-110)
[2024-06-17] MEDS: bisacodyL 10 MG SUPP RECTAL PRN (20:36)
[2024-06-17 23:27] LABS: Glucose,Whole Blood 115 mg/dL (70-110)
[2024-06-18 04:23] LABS: Anisocytosis Slight; Basophils # (A) 0.1 k/uL (0-0.2); Basophils % (A) 1 %; Eosinophils # (A) 0.3 k/uL (0-0.7); Eosinophils % (A) 3 %; HCT 36.6 % (39.0-53.0); HGB 11.3 gm/dL (13.0-17.5); Hypochromasia Marked; Lymphocytes # (A) 0.9 k/uL (1.0-4.8); Lymphocytes % (A) 10 %; MCH 27.8 pg (25.0-35.0); MCHC 30.9 g/dL (31.0-37.0); Mean Platelet Volume 7.2; Monocytes # (A) 0.7 k/uL (0-1.0); Monocytes % (A) 8 %; Neutrophils # (A) 6.9 k/uL (1.3-7.7); Neutrophils % (A) 77 %; Platelet Count 599 k/uL (150-450); Poikilocytosis Slight; RBC 4.07 m/uL (4.30-5.90); RDW 16.4 % (11.5-15.5)
[2024-06-18 04:45] LABS: ABG Base Excess 7.5 mmol/L; ABG HCO3 32 mmol/L (21-25); ABG Oxygen Saturation 96.6 % (94-97); ABG PCO2 45 mmHg (35-45); ABG PH 7.46 (7.35-7.45); ABG PO2 80 mmHg (83-108); ABG TCO2 34 mmol/L (19-24); Allen Test Performed? Yes
[2024-06-18 04:56] LABS: ALT 59 U/L (4-49); AST 44 U/L (17-59); African American GFR (CKD) >90 (>60 ml/min/1.73 sqM); Albumin 2.6 g/dL (3.5-5.0); Alkaline Phosphatase 146 U/L (38-126); Anion Gap 3 mmol/L; Blood Urea Nitrogen 16 mg/dL (9-20); Calcium 8.5 mg/dL (8.4-10.2); Carbon Dioxide 31 mmol/L (22-30); Chloride 104 mmol/L (98-107); Glucose 113 mg/dL (74-99); Non-African American GFR(CKD) >90 (>60 ml/min/1.73 sqM); Potassium 3.6 mmol/L (3.5-5.1); Sodium 138 mmol/L (137-145); Total Bilirubin 1.1 mg/dL (0.2-1.3)
[2024-06-18 05:24] LABS: Glucose,Whole Blood 127 mg/dL (70-110)
[2024-06-18] MEDS: POTASSIUM BICARBONATE/CIT AC 20 MEQ TABLET.EFF NG-TUBE SCH ×3 (05:41→23:04)
--- NOTE | 2024-06-18 07:59 | XR ---
EXAMINATION TYPE: XR chest 1V portable DATE OF EXAM: 06/18/2024 COMPARISON: 06/17/2024 HISTORY: SOB, Follow Up FINDINGS: Indwelling tubes and catheters are unchanged. Patient rotation limits evaluation. No change in bibasilar opacities. Persistent pulmonary venous congestion without significant change. Stable appearance of the cardio-mediastinal structures at this time. Pleural effusion unchanged. IMPRESSION: 1. Stable portable chest. Clinical correlation and follow up until resolution is recommended.
[2024-06-18 11:31] LABS: Glucose,Whole Blood 118 mg/dL (70-110)
--- NOTE | 2024-06-18 11:54 | P.PN ---
Subjective Progress Note Date: 06/17/24 06/17/2024: Patient was for a follow-up. Patient is laying in the bed, but much more alert and awake, following directions as per examination. Patient clearly not nodded his head "no no" for any headache. 06/16/2024: Patient was seen for a follow-up. Patient continues to be sedated with propofol 20 mcg/kg/min. Also heparin running for atrial fibrillation. Patient's vitals are stable with blood pressure 129/73. Patient more easily arousable. Please refer to examination below. 06/15/2024: Patient was initially seen by Dr. Lorenzo Lopez. Please refer to his note for details. 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 Patient has history of atrial fibrillation and his anticoagulation Xarelto was held due to recent cervical issues and likely resulted in stroke. Patient is currently on heparin drip and pending PEG and trach placement. Patient was seen for a follow-up. Discussed with patient's nurse and patient's ex- in detail. Patient had undergone lumbar spinal surgery on 05/19/2024. He returned back to the ER on 06/06/2024 after he had a fall and twisted his back but did not land on his back or land on his knees(as per ED notes). Patient mentioned that his pain has increased. Patient's ex- at this time however completely denies patient having any falls. Patient was seen by Dr. Jeffrey who felt the screws has come close. Patient was found to have fracture of the lumbar spine (acute) without cord injury. He had lumbosacral spondylosis with radiculopathy and weakness of both lower extremities which was acute. Patient underwent open treatment with reduction L1 2 and L3 fractures. The lesion T10 pelvic posterior lateral instrumented fusion. Segmental instrumentation T10 to pelvis. Removal of hardware L2 and L3. Cement augmentation T9, T10, L1, L2 and L3 screws. T8 vertebroplasty to prevent P.[place]. Postoperatively it was felt patient was not moving his right side of the body. He underwent CT head on 06/10/2024 which revealed findings of acute/subacute CVA involving the left frontoparietal region. CTA of head and neck revealed no significant diameter reduction took on for the patient's symptoms. No large vessel occlusion noted. Patient has remained intubated. Currently on propofol 20 g per program per minute. Patient has just received oxycodone. Per nursing report when the sedation is decreased, he appears to be "mad". He does move the left arm and the left leg, but not right side of the body. He moves right leg very little but not the right arm. Some of the other workup during this hospital visit consisted of: Lipid panel is triglyceride 68, cholesterol is 56, LDL is 18 and HDL is 23 Hemoglobin A1c 6.6. The echo on 06/08/2024 is reported as ejection fraction of 25 to [address]%. [address] head is reported as finding of acute/subacute CVA involving the left frontal parietal region. I personally reviewed CT and agree with the findings. CTA head and neck is read as no significant diameter reduction to account for the patient's symptoms. Area of hypoattenuation as described on the prior CT brain left frontal parietal region compatible with a finding of acute/subacute CVA. Repeat CT head 06/12/2024: Ongoing evolution of acute to subacute infarct over latral left frontal and parietal region with greater degree of hypodensity. Similar sulcal effacement. Minimal righward midline shift of 4mm vs 3mm measure on 06/10/24. No hemorrhagic transformation. Wound culture is positive for ESBL E. coli. Limited 2D echo was reported as mild reduced left ventricle systolic function left atrial enlargement. Most recent repeat CT of the head on 06/14/2024 is reported as left MCA territory evolving acute/subacute CVA. No evidence for hemorrhagic conversion. I personally reviewed the CT and I agree with the report. Objective - Vital Signs Vital signs: Vital Signs Temp 98.8 F 06/17/24 08:00 Pulse 83 06/17/24 12:32 Resp 20 06/17/24 11:00 BP 108/82 06/16/24 20:00 Pulse Ox 99 06/17/24 11:00 FiO2 40 06/17/24 12:25 Intake & Output 06/16/24 06/17/24 06/17/24 18:59 06:59 18:59 Intake Total 1141.037 863.073 408.341 Output Total 940 1210 510 Balance 201.037 -346.927 -101.659 Weight 111.8 kg 111.8 kg Intake: IV 180 90 90 Ertapenem 1 gm In Sodium 50 50 Chloride 0.9% 50 ml @ 100 mls/hr IVPB DAILY [facility] Rx #:[id number] kvo 130 90 40 Intake, IV Titration 351.037 323.073 208.341 Amount Heparin Sod,Pork in 0.45% 243.136 223.073 66.99 NaCl 25,000 unit In 0.45 % NaCl 1 250ml.bag @ 8.65 UNITS/KG/HR 9.999 mls/hr IV .Q24H [facility] Rx#: [id number] propofoL 1,000 mg In 107.901 100 141.351 Empty Bag 1 bag @ 15 MCG/ KG/MIN 10.305 mls/hr IV . [id number] [facility] Rx#:[id number] Tube Feeding 520 360 80 Other 90 90 30 Output: Urine 940 1210 510 Other: Voiding Method Indwelling Catheter Indwelling Catheter Indwelling Catheter # Bowel Movements 0 ABP, PAP, CO, CI - Last Documented Arterial Blood Pressure 116/74 - Exam Patient is intubated, partly sedated on propofol 15 mcg/kg per minute. Patient appears comfortable at this time. He is today very alert and awake. He is making eye contact, tracking, following directions. Patient moved his left arm and left leg actively on command. He also bring his right arm usp spontaneously. He is not moving much of his right leg. Pupils are equal, round and reacting. Muscle examination as above. Other testing could not be performed. Patient has Babinski on the right side, but downgoing on the left. - Labs CBC & Chem 7: 06/18/24 04:00 06/18/24 10:58 Labs: Abnormal Lab Results - Last 24 Hours (Table) 06/16/24 06/16/24 06/17/24 Range/Units 17:47 23:07 04:35 RBC (4.30-5.90) m/uL Hgb (13.0-17.5) gm/dL Hct (39.0-53.0) % MCHC (31.0-37.0) g/dL RDW (11.5-15.5) % Plt Count (150-450) k/uL Lymphocytes # (1.0-4.8) k/uL APTT (22.0-30.0) sec ABG pH 7.47 H (7.35-7.45) ABG HCO3 32 H (21-25) mmol/L ABG Total CO2 33 H (19-24) mmol/L ABG O2 Saturation 97.9 H (94-97) % Creatinine (0.66-1.25) mg/dL Glucose (74-99) mg/dL POC Glucose (mg/dL) 125 H 111 H (70-110) mg/dL Calcium (8.4-10.2) mg/dL 06/17/24 06/17/24 06/17/24 Range/Units 04:45 04:45 04:45 RBC 3.91 L (4.30-5.90) m/uL Hgb 10.9 L (13.0-17.5) gm/dL Hct 35.3 L (39.0-53.0) % MCHC 30.9 L (31.0-37.0) g/dL RDW 16.5 H (11.5-15.5) % Plt Count 494 H (150-450) k/uL Lymphocytes # 0.9 L (1.0-4.8) k/uL APTT 42.7 H (22.0-30.0) sec ABG pH (7.35-7.45) ABG HCO3 (21-25) mmol/L ABG Total CO2 (19-24) mmol/L ABG O2 Saturation (94-97) % Creatinine 0.34 L (0.66-1.25) mg/dL Glucose 108 H (74-99) mg/dL POC Glucose (mg/dL) (70-110) mg/dL Calcium 8.2 L (8.4-10.2) mg/dL 06/17/24 Range/Units 05:23 RBC (4.30-5.90) m/uL Hgb (13.0-17.5) gm/dL Hct (39.0-53.0) % MCHC (31.0-37.0) g/dL RDW (11.5-15.5) % Plt Count (150-450) k/uL Lymphocytes # (1.0-4.8) k/uL APTT (22.0-30.0) sec ABG pH (7.35-7.45) ABG HCO3 (21-25) mmol/L ABG Total CO2 (19-24) mmol/L ABG O2 Saturation (94-97) % Creatinine (0.66-1.25) mg/dL Glucose (74-99) mg/dL POC Glucose (mg/dL) 120 H (70-110) mg/dL Calcium (8.4-10.2) mg/dL Microbiology - Last 24 Hours (Table) 06/14/24 11:45 Gram Stain - Final Sputum Sputum Culture - Final Assessment and Plan Assessment: 58-year-old gentleman with history of atrial fibrillation status post cardioversion on Xarelto, diabetes mellitus, heart failure, cervical myelopathy, back pain and had recent L2 to pelvis decompression and fusion of bilateral open SI joint on 05/19/2024 who had a recent fall with back pain. Patient had L2-L3 fracture and has hardware failure of the thoracic spine to pelvis. On 06/09/2024, patient had L1-L2 and L3 revision T10 to pelvis posterior lateral instrumented fusion with hardware removal. His Xarelto was held 48 hours and it seems last dose was on 06/08/2024 per the nurse. On 06/10/2024, when the sedation was held the patient was not moving the right side and CT of the head shows acute to subacute over the left frontal parietal region. Acute to subacute stroke (seems more subacute) over the left frontal parietal region Altered mental status due to above, sepsis (Wound culture is positive for ESBL E. coli.) Recent fall with back pain and it seems that the patient has L2-L3 Fracture s/p revision T10 to Pelvis posterior lateral instrument fusion with hardware removal Intubated on a ventilator History of atrial fibrillation status post cardioversion and was on Xarelto and the Xarelto was held for the last 48 hours but currently on heparin drip History of cervical myelopathy status post C2-T2 decompression and fusion Recent recent L2 to pelvis decompression and fusion of bilateral open SI joint on 05/19/2024 History of Systolic Heart failure and recent 2D echo on 06/08/24 has EF 25-30% Diabetes mellitus and HbA1c: 6.6 Chronic hypertension History of hyperlipidemia History of obstructive sleep apnea Former tobacco use Plan: Patient is on heparin drip for the A-fib. From neurology perspective the patient can resume Xarelto. Dr. Lopez has spoken with the ICU nurse and she stated that per the ICU attending, remain on heparin drip for now, until he undergoes a trach and PEG. Is on Lipitor 40mg qhs which is sufficient for secondary stroke prophylaxis. Patient's mentation has further improved, even as compared to yesterday. Patient is fully alert and awake, making eye contact, following directions as per examination. He is also showing some movement in the right arm. Continue neurochecks Cardiac monitoring PT OT are consulted paretic on the right side. Cardiology team is on board Will defer the rest of the medical management to primary and other specialists DVT prophylaxis: On heparin drip. Keep the PTT between 45 and 60, as per Dr. Lopez recommendation. Condition is very guarded. Discussed with patient's nurse in detail. Family has not made final decision about tracheostomy and PEG placement. I wonder if patient could be extubated, as he is so alert and awake. However he has failed weaning parameters, per ICU staff.
--- NOTE | 2024-06-18 12:02 | P.PN ---
Subjective Progress Note Date: 06/18/24 Principal diagnosis: CVA. Patient is a 58-year-old white male with past medical history significant for obstructive sleep apnea with home CPAP, COPD, ex tobacco smoker, marijuana smoker, atrial fibrillation with previous cardioversion and anticoagulated on Xarelto, diabetes mellitus, hypertension, heart failure, and previous spinal surgeries. His primary care provider is Dr. Deuce Brito. He is currently intubated to the mechanical ventilator, unable to provide any information for HPI. Of note, patient recently underwent an L2 to pelvis posterior lateral decompression and fusion on 05/19/2024 at [facility]. During this admission, he initially was recovered in the intensive care unit. Technically, difficult to extubate, and did require BiPAP support immediately after extubation. He was eventually discharged home on 05/26/2024. Patient returned the emergency department on 06/06/2024. On review of the ER documentation, he had a fall while at home. CT of the lumbar spine demonstrated new compression fracture of L2 vertebral body with compression of the vertebral body down to the pedicle screws bilaterally and loosening the left pedicle screw. New left pedicle/transverse process of L2 and L3 fractures around the hardware with mild displacement. Fractures of the right transverse process of L2 and L3. Likely postsurgical subcutaneous gas in the surgical bed. Patient underwent revision thoracic T10 to pelvis decompression fusion yesterday. Intraoperatively, patient had an EBL of 1 L. He has received a total of 5 units of PRBCs, 1 FFP, and 1 pack platelets. He was sent to the intensive care unit postoperatively. He remains on the mechanical ventilator. Chest x-ray shows the endotracheal tube approximately 4.3 cm above the shashank. There is cardiomegaly with pulmonary vascular congestion suggested. No pleural effusions, pneumothoraces, focal consolidations. Initial ABG had a PaO2 of 80, pCO2 of 61, pH of 7.27. This was done on original ventilator settings of assist-control, respiratory rate 14, tidal volume 500, FiO2 1 9%, and PEEP of 5. My supervising physician is already increased the patient's respiratory rate to 20. He is currently synchronous with mechanical ventilator. There is a moderate amount of clear to white endotracheal secretions. Peak pressures 23. He is sedated with propofol which is currently infusing at 50 mcg/kg/min. He is fairly unarousable. Will withdraw to painful stimuli in all 4 extremities. There is also norepinephrine infusing at 0.02 mcg/kg/min. There is a MAP goal of 80 mmHg to support HY[employer]IST perfusion. LR is infusing at 10 MLS per hour. There is a Hemovac with a total of 220 serosanguineous output since surgery. We are awaiting postoperative labs. Preoperatively, CBC: WBC count 9.4, hemoglobin 9.6, hematocrit 32.5, platelets 516. Preoperative CMP: Sodium 137, potassium 4.1, chloride 104, serum bicarb 27, BUN 18, creatinine 0.61, glucose 143. LFTs unremarkable. Receiving prophylactic cefazolin. Note that preoperatively, patient did have a cardiac evaluation. Repeat echocardiogram shows a severely reduced left ventricular ejection fraction of 25 to 30% as well as mild mitral and tricuspid regurgitation. Heart rhythm is atrial fibrillation with controlled ventricular response. Normally anticoagulated on Xarelto, however, this is on hold for surgery. Progress note dated June 11, 2024. 58-year-old male recently had additional back surgery, including a T10 to pelvic decompression and fusion. Please see my consultation from yesterday. Today is postop day #2. The patient was brought back to the ICU on the ventilator. Will be woke him up for the daily interruption of sedation yesterday, it was noted that he was not moving his right side. He was sent for an immediate CT scan without contrast. It showed a subacute left frontoparietal CVA. It was isch emic in nature. He remains on mechanical ventilator. He is on volume assist- control, rate 20, tidal line 500, FiO2 50% to be dropped down to 40%, and PEEP of 5. Blood gases show pO2 118, pCO2 37, pH is 7.47. The patient is taking propofol at 50 mcg/kg/min, saline at KVO norepinephrine at 2 mcg/min IV heparin, and vital HP at 20 cc an hour with a goal of 37 cc. White count 8.9, hemoglobin 10, hematocrit 32.3, platelet count 262,000. PTT is 36.6. Sodium 136, potassium 4.2, chlorides 105, CO2 24, BUN 14, creatinine 0.37. Glucose is 138. Hemoglobin A1c is 6.6. Chest x-ray is essentially within normal range today for cardiomegaly. Progress note dated June 12, 2024. 58-year-old male seen again in room 255. The patient remains on mechanical ventilation. He is on volume assist-control, rate 20, tidal volume 500, FiO2 40%, PEEP of 5. Blood gases show pO2 of 80, pCO2 41, pH is 7.49. This blood gases consistent with metabolic alkalosis. The patient is on propofol at 25 mcg/kg/min, heparin via weight-based protocol, and vital HP at 37 cc an hour, which is goal. The patient had evidence of E. coli from the wound culture, the Escherichia coli is ESBL E. coli. For that reason he is on ertapenem. We will attempt a daily interruption of sedation. The patient did poorly with this holiday yesterday. His mental status was poor, but he still has increased secretions. He may eventually need tracheostomy and PEG tube placement. White count 5.4, hemoglobin 10.4, hematocrit 33.8, platelet count 338,000. PTT is 58.6. Sodium 139, potassium 3.5, chlorides 107, CO2 31, BUN 17, creatinine 0.37. Glucose is 108. Calcium 8.2. Chest x-ray shows a pattern of pulmonary vascular congestion, and bilateral effusions. Progress note dated June 14, 2024. 58-year-old male seen again in room 255. The patient remains on mechanical ventilation, and has done very poorly with his sedation holidays. He may end up with a tracheostomy and peg tube placement. Currently, he is on volume assist- control, rate 20, tidal volume 500, FiO2 40%, PEEP of 5. Blood gases show pO2 of 75, pCO2 of 41, pH is 7.49. He is getting saline at KVO, propofol at 20 mcg/kg/min, and IV heparin. He is on vital high-protein at 37 cc an hour, which is goal. He is also getting ertapenem, for an ESBL E. coli wound infection. Labs include a white count of 6, hemoglobin 10.8, hematocrit 34.6, and a hemant telet count of 370,000. Sodium 138, potassium 3.8, chlorides 107, CO2 27, BUN 18, and creatinine 0.35. Glucose is 133. Calcium 8.5. Magnesium 1.9. Chest x-ray shows unchanged chest x-ray with stable tubes and lines. Brain CT shows left MCA territory involving acute/subacute CVA, with no evidence for hemorrhagic conversion. Progress note dated June 15, 2024. 58-year-old male seen again in room 255. He remains on mechanical ventilation. He is on volume assist-control, rate 20, tidal line 500, FiO2 40%, PEEP of 5. Blood gases show pO2 of 81, pCO2 41, pH is 7.5. Blood gases are consistent with metabolic alkalosis. He is currently on propofol at 20 mcg/kg/min, heparin via weight-based protocol, saline at KVO, and vital high-protein at 37, which is goal. The patient will have a consult placed to surgery, for tracheostomy and PEG tube placement. His peak airway pressure is 19 cm of water. His plateau pressures 14 cm of water. The patient's airways resistance is 4.63 cmH2O per liters per second. White count is 5.8, hemoglobin 10.3, hematocrit 33.3, platelet count 3 and 44,000. Sodium 137, potassium 4, chloride 106, CO2 26, BUN 19, and creatinine 0.34. Glucose is 125. Calcium 8.2. Wound cultures are positive for ESBL Escherichia coli. Chest x-ray shows scattered bilateral infiltrates, which are unchanged. Progress note dated June 16, 2024. 58-year-old male seen again in room 255. He remains on mechanical ventilator. I did have a conversation with his Sister Altagracia today, about making the decision to proceed with tracheostomy and PEG tube placement. She was going to get back with us later today. He is on volume assist-control, rate 20, tidal volume 500, FiO2 40%, PEEP of 5. Blood gases show pO2 of 95, pCO2 43, pH is 7.47. The patient is on IV heparin via weight-based protocol, propofol at 20 mcg/kg/min, and vital AF at goal, which is 40 cc an hour. Labs include a white count 5.4, hemoglobin 10.7, hematocrit 34.6, and platelet count 435,000. PTT is 53.3. Sodium 137, potassium 3.8, chlorides 105, CO2 27, BUN 17, and creatinine 0.34. Wound cultures, were positive for ESBL Escherichia coli. For that reason, he is on ertapenem. Portable chest x-ray is largely unchanged. Progress note dated June 17, 2024. 58-year-old male seen in room 255. He remains on mechanical ventilator. He is on volume assist-control, rate 20, tidal volume 500, FiO2 40%, PEEP of 5. Blood gases show pO2 of 91, pCO2 44, pH is 7.47. He remains on propofol at 20 mcg/kg/min heparin via weight-based protocol, and saline at KVO. He is getting vital HP at 40, which is goal. I had a conversation with his Sister Altagracia yesterday, because I would like to move forward with tracheostomy tube insertion and PEG tube placement. Apparently, another sibling is coming into the hospital today to discuss those surgical procedures. White count 7.2, hemoglobin 10.9, hematocrit 35.3, and platelet count 494,000. PTT is 42.7. Sodium 137, potassium 3.6, chlorides 104, CO2 27, BUN 15, creatinine 0.34. Calcium 8.2. Glucose 120. Wound cultures from June 09, are positive for ESBL Escherichia coli. Chest x-ray shows evidence of cardiomegaly, mild pulmonary vascular c ongestion. Progress note dated June 18, 2024. 58-year-old male seen again in room 255. The patient remains on the mechanical ventilator. Ventilator settings include volume assist-control, rate 20, tidal volume 500, FiO2 40%, and PEEP of 5. Blood gases show pO2 of 80, pCO2 of 45, pH is 7.46. He continues on a heparin drip, via weight-based protocol, propofol at 25 mcg/kg/min, saline at 10 cc an hour. He is also getting vital high-protein at 40 cc an hour, which is goal. The patient will have a daily interruption of sedation, and spontaneous breathing trial today, on a pressure support of 5, CPAP of 5. Current labs include a white count 9, hemoglobin 11.3, hematocrit 36.6, and a platelet count of 599,000. PTT is 61.4. Sodium 138, potassium 3.6, chlorides 104, CO2 31, BUN 16, creatinine 0.36. Glucose is 118. Albumin is 2.6. Wound cultures, done on June 09, show evidence of ESBL Escherichia coli. For that, the patient is on ertapenem. Chest x-ray is largely unchanged. Objective - Vital Signs Vital signs: Vital Signs Temp 99.5 F 06/18/24 08:00 Pulse 75 06/18/24 11:21 Resp 22 06/18/24 11:00 BP 116/83 06/18/24 11:00 Pulse Ox 99 06/18/24 11:00 FiO2 40 06/18/24 11:06 Intake & Output 06/17/24 06/18/24 06/18/24 18:59 06:59 18:59 Intake Total 999.642 4344.365 432.862 Output Total 1885 690 470 Balance -931.567 499.365 -37.138 Weight 111.8 kg 111.3 kg Intake: IV 160 120 100 Ertapenem 1 gm In Sodium 50 50 Chloride 0.9% 50 ml @ 100 mls/hr IVPB DAILY [facility] Rx #:[id number] kvo 110 120 50 Intake, IV Titration 443.433 499.365 102.862 Amount Heparin Sod,Pork in 0.45% 250.00 250 NaCl 25,000 unit In 0.45 % NaCl 1 250ml.bag @ 8.65 UNITS/KG/HR 9.999 mls/hr IV .Q24H [facility] Rx#: [id number] propofoL 1,000 mg In 193.433 249.365 102.862 Empty Bag 1 bag @ 15 MCG/ KG/MIN 10.305 mls/hr IV . [id number] [facility] Rx#:[id number] Tube Feeding 280 480 200 Other 70 90 30 Output: Urine 1885 690 470 Other: Voiding Method Indwelling Catheter Indwelling Catheter Indwelling Catheter # Bowel Movements 1 ABP, PAP, CO, CI - Last Documented Arterial Blood Pressure 106/58 - Exam No acute distress, sedated, with an orally placed endotracheal tube. HEENT examination is grossly unremarkable. Mucous membranes are moist. No oral lesions. Neck supple. Full range of motion. No adenopathy thyromegaly or neck vein distention. Cardiovascular examination reveals regular rhythm rate. S1-S2 normal. No S3 or S4. No discernible murmur noted. Lungs reveal mostly clear breath sounds. Minimal scattered rhonchi. No wheezes or crackles. Breath sounds equal. Saturations are more than adequate. Abdomen soft bowel sounds are heard. No masses or tenderness. Extremities are intact. No cyanosis clubbing or edema. Skin is without rash or lesion. Neurologic examination cannot be assessed at this time. - Labs CBC & Chem 7: 06/18/24 04:00 06/18/24 10:58 Labs: Abnormal Lab Results - Last 24 Hours (Table) 06/17/24 06/17/24 06/17/24 Range/Units 13:33 18:16 23:25 RBC (4.30-5.90) m/uL Hgb (13.0-17.5) gm/dL Hct (39.0-53.0) % MCHC (31.0-37.0) g/dL RDW (11.5-15.5) % Plt Count (150-450) k/uL Lymphocytes # (1.0-4.8) k/uL APTT 47.1 H (22.0-30.0) sec ABG pH (7.35-7.45) ABG pO2 (83-108) mmHg ABG HCO3 (21-25) mmol/L ABG Total CO2 (19-24) mmol/L Carbon Dioxide (22-30) mmol/L Creatinine (0.66-1.25) mg/dL Glucose (74-99) mg/dL POC Glucose (mg/dL) 114 H 115 H (70-110) mg/dL ALT (4-49) U/L Alkaline Phosphatase (38-126) U/L Total Protein (6.3-8.2) g/dL Albumin (3.5-5.0) g/dL 06/18/24 06/18/24 06/18/24 Range/Units 04:00 04:00 04:00 RBC 4.07 L (4.30-5.90) m/uL Hgb 11.3 L (13.0-17.5) gm/dL Hct 36.6 L (39.0-53.0) % MCHC 30.9 L (31.0-37.0) g/dL RDW 16.4 H (11.5-15.5) % Plt Count 599 H (150-450) k/uL Lymphocytes # 0.9 L (1.0-4.8) k/uL APTT 61.4 H (22.0-30.0) sec ABG pH (7.35-7.45) ABG pO2 (83-108) mmHg ABG HCO3 (21-25) mmol/L ABG Total CO2 (19-24) mmol/L Carbon Dioxide 31 H (22-30) mmol/L Creatinine 0.36 L (0.66-1.25) mg/dL Glucose 113 H (74-99) mg/dL POC Glucose (mg/dL) (70-110) mg/dL ALT 59 H (4-49) U/L Alkaline Phosphatase 146 H (38-126) U/L Total Protein 5.0 L (6.3-8.2) g/dL Albumin 2.6 L (3.5-5.0) g/dL 06/18/24 06/18/24 06/18/24 Range/Units 04:40 05:23 11:30 RBC (4.30-5.90) m/uL Hgb (13.0-17.5) gm/dL Hct (39.0-53.0) % MCHC (31.0-37.0) g/dL RDW (11.5-15.5) % Plt Count (150-450) k/uL Lymphocytes # (1.0-4.8) k/uL APTT (22.0-30.0) sec ABG pH 7.46 H (7.35-7.45) ABG pO2 80 L (83-108) mmHg ABG HCO3 32 H (21-25) mmol/L ABG Total CO2 34 H (19-24) mmol/L Carbon Dioxide (22-30) mmol/L Creatinine (0.66-1.25) mg/dL Glucose (74-99) mg/dL POC Glucose (mg/dL) 127 H 118 H (70-110) mg/dL ALT (4-49) U/L Alkaline Phosphatase (38-126) U/L Total Protein (6.3-8.2) g/dL Albumin (3.5-5.0) g/dL Microbiology - Last 24 Hours (Table) 06/12/24 17:40 Blood Culture - Final Blood 06/14/24 11:45 Gram Stain - Final Sputum Sputum Culture - Final Assessment and Plan Assessment: Status post fall, with L2 vertebral body compression fracture, L2-L3 right-sided transverse process fractures, and L2-L3 left-sided pedicle/transverse process fractures. Status postoperative day #8 following a revision T10 to pelvis decompression and fusion with stabilization. Routine postoperative mechanical ventilator management. Acute left frontal/parietal ischemic CVA. ESBL Escherichia coli wound infection. Recent L2 to pelvis posterior lateral decompression and fusion on 05/19/2024. Acute blood loss anemia, patient has received a total of 5 units of PRBCs perioperatively, 1 pack platelets, and is going to receive 1 unit FFP. Hypotension, resolved. Heart failure with reduced ejection fraction. Chronic atrial fibrillation. History of hypertension. History of hyperlipidemia. History of diabetes mellitus. Obesity, with a BMI of 38.4 kg/m. History of obstructive sleep apnea. Chronic obstructive pulmonary disease, stable. Former tobacco smoker. Remote history of prior C2-T2 Decompression and fusion. Plan: Plan dated June 11, 2024. The patient remains in the intensive care unit, on the mechanical ventilator. The patient did not do well yesterday with his daily interruption of sedation. It will be tried again today. The patient's FiO2 was reduced from 50%, down to 40%. The pO2 on the blood gas was 118. The patient continues on propofol at 50 mcg/kg/min, saline at KVO, and norepinephrine at 2 mcg/min. The patient is also receiving IV heparin via weight-based protocol, and vital high-protein, at 20 cc an hour, with a goal of 37 cc. The patient was discovered to have a left frontal parietal CVA, which is thought to be subacute. He is postop day #2. Labs, x-rays, and all medications are reviewed. Plan dated June 13, 2024. The patient remains in the intensive care unit. Yesterday, he did poorly with his sedation holiday. He has lots of airway secretions, and his mental status was poor. For that reason, he was resedated. We will attempt another sedation holiday today. The wound cultures, from his back, show evidence of ESBL Escherichia coli. For that reason he is on ertapenem. He continues on propofol at 25 mcg/kg/min, heparin via weight-based protocol, and vital HP at 37 cc an hour which is goal. Blood gases show pO2 of 80, pCO2 41, pH is 7.49. This blood gases consistent with metabolic alkalosis. Labs, x-rays, and medications are reviewed. The patient's overall prognosis remains guarded. We will continue to follow make recommendations along the way. Plan dated June 14, 2024. Unfortunately, every time we do a sedation holiday, the patient's neurologic status, does not improve. The patient also has lots of airway secretions. Anyway, today, the patient will not have a daily interruption of sedation. He continues on ertapenem for his ESBL Escherichia coli wound infection. He is getting nourished with vital high-protein at 37 cc an hour which is goal. He continues on IV heparin. The most recent brain CT is reviewed. The patient is on propofol at 20 mcg/kg/min. Blood gases showed metabolic alkalosis. We will continue to follow make recommendations along the way. The patient may need a tracheostomy and PEG tube placement, should he not show any additional improvem ent. Plan dated June 15, 2024. The patient has had at least 3 or 4 episodes of sedation holidays, with no neurologic improvement, and with increased airway secretions. The patient becomes agitated, tachypneic, tachycardic, and hypertensive. The patient has to be resedated. The patient will need a tracheostomy and PEG tube placement. We will contact the family if possible. Labs, x-rays, and medications are reviewed. The patient's overall prognosis remains guarded. He continues on ertapenem for his ESBL Escherichia coli wound infection. Labs, x-rays, and all medications are reviewed. Prognosis is guarded. Blood gases are consistent with a metabolic alkalosis. Plan dated June 16, 2024. The patient is seen today in room 255. He basically is essentially unchanged. I did have a conversation with his sister Altagracia, who apparently resides in the [facility]. I have asked her to make a decision about tracheostomy and PEG tube placement. I would like to do that tomorrow if possible. Labs, x-rays, medications are reviewed. The patient does poorly on a sedation holiday. The patient was admitted after surgery, and had a left frontal temporal CVA. He continues on IV heparin and propofol. Labs, x-rays, and all medications have been reviewed. Prognosis is guarded. Plan dated June 17, 2024. The patient is seen today in room 255. He remains on mechanical ventilator. When the patient is off sedation, he does not appropriately respond. In addition, there is an issue with significant secretions. The patient should really proceed with a tracheostomy and PEG tube placement. I am having a hard time getting permission from the family members, including his sister Altagracia. Apparently another sibling will be by to see him today. We will ask him about that. He continues on propofol, and heparin via weight-based protocol. He is getting vital HP at 40 which is goal. Blood gases are very reasonable. Prognosis is guarded. Another option would be extubation, with primarily comfort care. Plan dated June 18, 2024. The patient's family did agree for tracheostomy and PEG tube, which apparently cannot be done till Saturday, because no surgeons are available. The patient was given a sedation holiday, placed on pressure support of 5, and CPAP of 5. The patient is not ready for extubation as his mental status is poor, and he is having issues ongoing with secretions. He continues on heparin via weight-based protocol. He is also on propofol at 25 mcg/kg/min, and vital high-protein at 40 cc an hour which is goal. Blood gases are stable. Labs, x-rays, medications are reviewed. The patient's recent surgery was complicated by a left frontal parietal CVA, with right-sided paralysis. We will continue to follow the patient, make recommendations. Prognosis is guarded. He continues on ertapenem for his ESBL wound infection secondary to Escherichia coli. Time with Patient: Greater than 30
--- NOTE | 2024-06-18 12:34 | P.PN ---
Subjective Progress Note Date: 06/18/24 CHIEF COMPLAINT: Fall HISTORY OF PRESENT ILLNESS: Patient remains in the ICU intubated and on mechanical ventilation. Patient admitted to the fall and had to have revision of his back surgery. He also had a subacute stroke and is currently on IV heparin for his A-fib with RVR. Afebrile. WBC 9.0 PHYSICAL EXAM: VITAL SIGNS: Reviewed. GENERAL: no acute distress. ABDOMEN: Soft. Nondistended. Nontender. NEUROLOGIC: Intubated ASSESSMENT: 1. Respiratory failure. Difficulty weaning from the vent 2. Moderate protein calorie malnutrition 3. Status post revision of spinal surgery 4. CVA PLAN: -Awaiting family's decision regarding tracheostomy and PEG tube placement. Would plan for trach and PEG placement on Saturday with Dr. Macedo if patient's family would like to proceed with procedures. -Continue supportive care Physician Merchandising Execution Manager note has been reviewed by physician. Signing provider agrees with the documented findings, assessment, and plan of care. Objective - Vital Signs Vital signs: Vital Signs Temp 99.2 F 06/18/24 04:00 Pulse 98 06/18/24 08:46 Resp 24 06/18/24 07:00 BP 114/75 06/18/24 07:00 Pulse Ox 97 06/18/24 07:00 FiO2 40 06/18/24 08:19 Intake & Output 06/17/24 06/18/24 06/18/24 18:59 06:59 18:59 Intake Total 816.264 8062.365 150 Output Total 1885 690 75 Balance -931.567 499.365 75 Weight 111.8 kg 111.3 kg Intake: IV 160 120 10 Ertapenem 1 gm In Sodium 50 Chloride 0.9% 50 ml @ 100 mls/hr IVPB DAILY [facility] Rx #:[id number] kvo 110 120 10 Intake, IV Titration 443.433 499.365 100 Amount Heparin Sod,Pork in 0.45% 250.00 250 NaCl 25,000 unit In 0.45 % NaCl 1 250ml.bag @ 8.65 UNITS/KG/HR 9.999 mls/hr IV .Q24H [facility] Rx#: [id number] propofoL 1,000 mg In 193.433 249.365 100 Empty Bag 1 bag @ 15 MCG/ KG/MIN 10.305 mls/hr IV . Q9H43M [facility] Rx#:[id number] Tube Feeding 280 480 40 Other 70 90 Output: Urine 3004 690 75 Other: Voiding Method Indwelling Catheter Indwelling Catheter # Bowel Movements 1 ABP, PAP, CO, CI - Last Documented Arterial Blood Pressure 106/58 - Labs CBC & Chem 7: 06/18/24 04:00 06/18/24 10:58 Labs: Abnormal Lab Results - Last 24 Hours (Table) 06/17/24 06/17/24 06/17/24 Range/Units 13:33 18:16 23:25 RBC (4.30-5.90) m/uL Hgb (13.0-17.5) gm/dL Hct (39.0-53.0) % MCHC (31.0-37.0) g/dL RDW (11.5-15.5) % Plt Count (150-450) k/uL Lymphocytes # (1.0-4.8) k/uL APTT 47.1 H (22.0-30.0) sec ABG pH (7.35-7.45) ABG pO2 (83-108) mmHg ABG HCO3 (21-25) mmol/L ABG Total CO2 (19-24) mmol/L Carbon Dioxide (22-30) mmol/L Creatinine (0.66-1.25) mg/dL Glucose (74-99) mg/dL POC Glucose (mg/dL) 114 H 115 H (70-110) mg/dL ALT (4-49) U/L Alkaline Phosphatase (38-126) U/L Total Protein (6.3-8.2) g/dL Albumin (3.5-5.0) g/dL 06/18/24 06/18/24 06/18/24 Range/Units 04:00 04:00 04:00 RBC 4.07 L (4.30-5.90) m/uL Hgb 11.3 L (13.0-17.5) gm/dL Hct 36.6 L (39.0-53.0) % MCHC 30.9 L (31.0-37.0) g/dL RDW 16.4 H (11.5-15.5) % Plt Count 599 H (150-450) k/uL Lymphocytes # 0.9 L (1.0-4.8) k/uL APTT 61.4 H (22.0-30.0) sec ABG pH (7.35-7.45) ABG pO2 (83-108) mmHg ABG HCO3 (21-25) mmol/L ABG Total CO2 (19-24) mmol/L Carbon Dioxide 31 H (22-30) mmol/L Creatinine 0.36 L (0.66-1.25) mg/dL Glucose 113 H (74-99) mg/dL POC Glucose (mg/dL) (70-110) mg/dL ALT 59 H (4-49) U/L Alkaline Phosphatase 146 H (38-126) U/L Total Protein 5.0 L (6.3-8.2) g/dL Albumin 2.6 L (3.5-5.0) g/dL 06/18/24 06/18/24 Range/Units 04:40 05:23 RBC (4.30-5.90) m/uL Hgb (13.0-17.5) gm/dL Hct (39.0-53.0) % MCHC (31.0-37.0) g/dL RDW (11.5-15.5) % Plt Count (150-450) k/uL Lymphocytes # (1.0-4.8) k/uL APTT (22.0-30.0) sec ABG pH 7.46 H (7.35-7.45) ABG pO2 80 L (83-108) mmHg ABG HCO3 32 H (21-25) mmol/L ABG Total CO2 34 H (19-24) mmol/L Carbon Dioxide (22-30) mmol/L Creatinine (0.66-1.25) mg/dL Glucose (74-99) mg/dL POC Glucose (mg/dL) 127 H (70-110) mg/dL ALT (4-49) U/L Alkaline Phosphatase (38-126) U/L Total Protein (6.3-8.2) g/dL Albumin (3.5-5.0) g/dL Microbiology - Last 24 Hours (Table) 06/12/24 17:40 Blood Culture - Final Blood 06/14/24 11:45 Gram Stain - Final Sputum Sputum Culture - Final
--- NOTE | 2024-06-18 14:51 | P.PN ---
Subjective Progress Note Date: 06/17/24 Principal diagnosis: Reason for follow-up is lumbar surgical site infection ESBL E. coli Patient is a 58-year-old male with a past medical history significant for diabetes mellitus hypertension COPD atrial fibrillation sleep apnea initially presented to hospital with back pain has been diagnosed with L1-L3 fracture status post extensive surgery and surgical cultures came back positive with ESBL E. coli prompted this consultation. On today's evaluation that is 06/17/2024, Patient is afebrile patient is currently on the ventilator FiO2 is currently stable at 40% no significant purulent secretions through the ET patient not requiring any pressor support tolerating his tube feeds. The patient white count is 7.2, creatinine is 0.34 Objective - Vital Signs Vital signs: Vital Signs Temp 98.8 F 06/17/24 08:00 Pulse 82 06/17/24 11:00 Resp 20 06/17/24 11:00 BP 108/82 06/16/24 20:00 Pulse Ox 99 06/17/24 11:00 FiO2 40 06/17/24 08:00 Intake & Output 06/16/24 06/17/24 06/17/24 18:59 06:59 18:59 Intake Total 1141.037 863.073 360.423 Output Total 940 1210 510 Balance 201.037 -346.927 -149.577 Weight 111.8 kg Intake: IV 180 90 90 Ertapenem 1 gm In Sodium 50 50 Chloride 0.9% 50 ml @ 100 mls/hr IVPB DAILY [facility] Rx #:[id number] kvo 130 90 40 Intake, IV Titration 351.037 323.073 160.423 Amount Heparin Sod,Pork in 0.45% 243.136 223.073 66.99 NaCl 25,000 unit In 0.45 % NaCl 1 250ml.bag @ 8.65 UNITS/KG/HR 9.999 mls/hr IV .Q24H [facility] Rx#: [id number] propofoL 1,000 mg In 107.901 100 93.433 Empty Bag 1 bag @ 15 MCG/ KG/MIN 10.305 mls/hr IV . Q9H43M [facility] Rx#:[id number] Tube Feeding 520 360 80 Other 90 90 30 Output: Urine 940 1210 510 Other: Voiding Method Indwelling Catheter Indwelling Catheter Indwelling Catheter # Bowel Movements 0 ABP, PAP, CO, CI - Last Documented Arterial Blood Pressure 116/74 - Exam GENERAL DESCRIPTION: Middle-age male intubated on the vent RESPIRATORY SYSTEM: Unlabored breathing , decreased breath sounds at bases HEART: S1 S2 regular rate and rhythm , ABDOMEN: Soft , no tenderness EXTREMITIES: No edema feet - Labs CBC & Chem 7: 06/18/24 04:00 06/18/24 10:58 Labs: Abnormal Lab Results - Last 24 Hours (Table) 06/16/24 06/16/24 06/17/24 Range/Units 17:47 23:07 04:35 RBC (4.30-5.90) m/uL Hgb (13.0-17.5) gm/dL Hct (39.0-53.0) % MCHC (31.0-37.0) g/dL RDW (11.5-15.5) % Plt Count (150-450) k/uL Lymphocytes # (1.0-4.8) k/uL APTT (22.0-30.0) sec ABG pH 7.47 H (7.35-7.45) ABG HCO3 32 H (21-25) mmol/L ABG Total CO2 33 H (19-24) mmol/L ABG O2 Saturation 97.9 H (94-97) % Creatinine (0.66-1.25) mg/dL Glucose (74-99) mg/dL POC Glucose (mg/dL) 125 H 111 H (70-110) mg/dL Calcium (8.4-10.2) mg/dL 06/17/24 06/17/24 06/17/24 Range/Units 04:45 04:45 04:45 RBC 3.91 L (4.30-5.90) m/uL Hgb 10.9 L (13.0-17.5) gm/dL Hct 35.3 L (39.0-53.0) % MCHC 30.9 L (31.0-37.0) g/dL RDW 16.5 H (11.5-15.5) % Plt Count 494 H (150-450) k/uL Lymphocytes # 0.9 L (1.0-4.8) k/uL APTT 42.7 H (22.0-30.0) sec ABG pH (7.35-7.45) ABG HCO3 (21-25) mmol/L ABG Total CO2 (19-24) mmol/L ABG O2 Saturation (94-97) % Creatinine 0.34 L (0.66-1.25) mg/dL Glucose 108 H (74-99) mg/dL POC Glucose (mg/dL) (70-110) mg/dL Calcium 8.2 L (8.4-10.2) mg/dL 06/17/24 Range/Units 05:23 RBC (4.30-5.90) m/uL Hgb (13.0-17.5) gm/dL Hct (39.0-53.0) % MCHC (31.0-37.0) g/dL RDW (11.5-15.5) % Plt Count (150-450) k/uL Lymphocytes # (1.0-4.8) k/uL APTT (22.0-30.0) sec ABG pH (7.35-7.45) ABG HCO3 (21-25) mmol/L ABG Total CO2 (19-24) mmol/L ABG O2 Saturation (94-97) % Creatinine (0.66-1.25) mg/dL Glucose (74-99) mg/dL POC Glucose (mg/dL) 120 H (70-110) mg/dL Calcium (8.4-10.2) mg/dL Microbiology - Last 24 Hours (Table) 06/14/24 11:45 Gram Stain - Final Sputum Sputum Culture - Final Assessment and Plan (1) Surgical site infection Current Visit: Yes Status: Acute Code(s): T81.49XA - INFECTION FOLLOWING A PROCEDURE, OTHER SURGICAL SITE, INIT SNOMED Code(s): 65431229 (2) Infection due to ESBL-producing Escherichia coli Current Visit: Yes Status: Acute Code(s): A49.8 - OTHER BACTERIAL INFECTIONS OF UNSPECIFIED SITE; Z16.12 - EXTENDED SPECTRUM BETA LACTAMASE (ESBL) RESISTANCE SNOMED Code(s): 144845128 Plan: 1patient presented to the hospital with back pain more than a week ago from initial evaluation in this patient who did have extensive lumbosacral spine surgery now has been taken back to the OR noticed to have hardware failure fracture of the vertebra s/p redo surgery and culture which has been finalized as ESBL E. coli 2-patient remains to be afebrile white count is normal, to continue with Invanz 1 g daily and monitor clinical course closely Dictation was produced using [employer] dictation software. please excuse any grammatical, word or spelling errors. Time with Patient: Less than 30
--- NOTE | 2024-06-18 14:52 | P.PN ---
Subjective Progress Note Date: 06/18/24 Principal diagnosis: Reason for follow-up is lumbar surgical site infection ESBL E. coli Patient is a 58-year-old male with a past medical history significant for diabetes mellitus hypertension COPD atrial fibrillation sleep apnea initially presented to hospital with back pain has been diagnosed with L1-L3 fracture status post extensive surgery and surgical cultures came back positive with ESBL E. coli prompted this consultation. On today's evaluation that is 06/18/2024, patient has been afebrile, patient remains to be intubated on the vent FiO2 is stable at 40% no purulent secretions through the ET or any other changes reported by nursing staff the patient slowly waking up not ready for extubation yet tube feeds has been slow down because of residual he did have bowel movement as reported by the nursing staff. Patient white count is 9.0, creatinine 0.36 blood culture has been negative Objective - Vital Signs Vital signs: Vital Signs Temp 98.2 F 06/18/24 12:00 Pulse 91 06/18/24 14:00 Resp 16 06/18/24 14:00 BP 120/68 06/18/24 14:00 Pulse Ox 97 06/18/24 14:00 FiO2 40 06/18/24 12:00 Intake & Output 06/17/24 06/18/24 06/18/24 18:59 06:59 18:59 Intake Total 394.031 7648.365 705.561 Output Total 1885 690 670 Balance -931.567 499.365 35.561 Weight 111.8 kg 111.3 kg Intake: IV 160 120 110 Ertapenem 1 gm In Sodium 50 50 Chloride 0.9% 50 ml @ 100 mls/hr IVPB DAILY [facility] Rx #:[id number] kvo 110 120 60 Intake, IV Titration 443.433 499.365 295.561 Amount Heparin Sod,Pork in 0.45% 250.00 250 192.699 NaCl 25,000 unit In 0.45 % NaCl 1 250ml.bag @ 8.65 UNITS/KG/HR 9.999 mls/hr IV .Q24H [facility] Rx#: [id number] propofoL 1,000 mg In 193.433 249.365 102.862 Empty Bag 1 bag @ 15 MCG/ KG/MIN 10.305 mls/hr IV . Q9H43M [facility] Rx#:[id number] Tube Feeding 280 480 240 Other 70 90 60 Output: Urine 7638 267 214 Other: Voiding Method Indwelling Catheter Indwelling Catheter Indwelling Catheter # Bowel Movements 1 ABP, PAP, CO, CI - Last Documented Arterial Blood Pressure 106/58 - Exam GENERAL DESCRIPTION: Middle-age male intubated on the vent RESPIRATORY SYSTEM: Unlabored breathing , decreased breath sounds at bases HEART: S1 S2 regular rate and rhythm , ABDOMEN: Soft , no tenderness EXTREMITIES: No edema feet - Labs CBC & Chem 7: 06/18/24 04:00 06/18/24 10:58 Labs: Abnormal Lab Results - Last 24 Hours (Table) 06/17/24 06/17/24 06/17/24 Range/Units 13:33 18:16 23:25 RBC (4.30-5.90) m/uL Hgb (13.0-17.5) gm/dL Hct (39.0-53.0) % MCHC (31.0-37.0) g/dL RDW (11.5-15.5) % Plt Count (150-450) k/uL Lymphocytes # (1.0-4.8) k/uL APTT 47.1 H (22.0-30.0) sec ABG pH (7.35-7.45) ABG pO2 (83-108) mmHg ABG HCO3 (21-25) mmol/L ABG Total CO2 (19-24) mmol/L Carbon Dioxide (22-30) mmol/L Creatinine (0.66-1.25) mg/dL Glucose (74-99) mg/dL POC Glucose (mg/dL) 114 H 115 H (70-110) mg/dL ALT (4-49) U/L Alkaline Phosphatase (38-126) U/L Total Protein (6.3-8.2) g/dL Albumin (3.5-5.0) g/dL 06/18/24 06/18/24 06/18/24 Range/Units 04:00 04:00 04:00 RBC 4.07 L (4.30-5.90) m/uL Hgb 11.3 L (13.0-17.5) gm/dL Hct 36.6 L (39.0-53.0) % MCHC 30.9 L (31.0-37.0) g/dL RDW 16.4 H (11.5-15.5) % Plt Count 599 H (150-450) k/uL Lymphocytes # 0.9 L (1.0-4.8) k/uL APTT 61.4 H (22.0-30.0) sec ABG pH (7.35-7.45) ABG pO2 (83-108) mmHg ABG HCO3 (21-25) mmol/L ABG Total CO2 (19-24) mmol/L Carbon Dioxide 31 H (22-30) mmol/L Creatinine 0.36 L (0.66-1.25) mg/dL Glucose 113 H (74-99) mg/dL POC Glucose (mg/dL) (70-110) mg/dL ALT 59 H (4-49) U/L Alkaline Phosphatase 146 H (38-126) U/L Total Protein 5.0 L (6.3-8.2) g/dL Albumin 2.6 L (3.5-5.0) g/dL 06/18/24 06/18/24 06/18/24 Range/Units 04:40 05:23 11:30 RBC (4.30-5.90) m/uL Hgb (13.0-17.5) gm/dL Hct (39.0-53.0) % MCHC (31.0-37.0) g/dL RDW (11.5-15.5) % Plt Count (150-450) k/uL Lymphocytes # (1.0-4.8) k/uL APTT (22.0-30.0) sec ABG pH 7.46 H (7.35-7.45) ABG pO2 80 L (83-108) mmHg ABG HCO3 32 H (21-25) mmol/L ABG Total CO2 34 H (19-24) mmol/L Carbon Dioxide (22-30) mmol/L Creatinine (0.66-1.25) mg/dL Glucose (74-99) mg/dL POC Glucose (mg/dL) 127 H 118 H (70-110) mg/dL ALT (4-49) U/L Alkaline Phosphatase (38-126) U/L Total Protein (6.3-8.2) g/dL Albumin (3.5-5.0) g/dL Microbiology - Last 24 Hours (Table) 06/12/24 17:40 Blood Culture - Final Blood 06/14/24 11:45 Gram Stain - Final Sputum Sputum Culture - Final Assessment and Plan (1) Surgical site infection Current Visit: Yes Status: Acute Code(s): T81.49XA - INFECTION FOLLOWING A PROCEDURE, OTHER SURGICAL SITE, INIT SNOMED Code(s): 60524185 (2) Infection due to ESBL-producing Escherichia coli Current Visit: Yes Status: Acute Code(s): A49.8 - OTHER BACTERIAL INFECTIONS OF UNSPECIFIED SITE; Z16.12 - EXTENDED SPECTRUM BETA LACTAMASE (ESBL) RESISTANCE SNOMED Code(s): 830110271 Plan: 1patient presented to the hospital with back pain more than a week ago from initial evaluation in this patient who did have extensive lumbosacral spine [place] now has been taken back to the OR noticed to have hardware failure fracture of the vertebra s/p redo surgery and culture which has been finalized as ESBL E. coli 2-patient remains to be afebrile white count is normal, 3patient to continue with Invanz 1 g daily will likely need PICC line and o utpatient IV antibiotics if no plan for treatment withdrawal Family at the bedside questions answered Dictation was produced using [employer] dictation software. please excuse any grammatical, word or spelling errors. Time with Patient: Less than 30
[2024-06-18 18:04] LABS: Glucose,Whole Blood 130 mg/dL (70-110)
--- NOTE | 2024-06-18 21:30 | PN ---
PROGRESS NOTE SUBJECTIVE: I discussed with the family yesterday about PEG and tube if we cannot get him off the vent and they were all in agreement for it. He is on mechanical ventilator, assist control, FiO2 48, PEEP of 5. Blood gases reviewed. Heparin drip, weight-based protocol, high-protein, TPN, spontaneous breathing trial today. Labs reviewed. Chest x-ray unchanged. Wound culture, ESBL, E coli, ertapenem. OBJECTIVE: VITAL SIGNS: Temperature 99, blood pressure 116/83, pulse 75, and respiratory rate 22. LUNGS: Scattered rhonchi and wheeze. ABDOMEN: Soft. EXTREMITIES: No edema. HEENT: Normocephalic, atraumatic. White count is 9 with hemoglobin is 11.3, platelets 599. His p.o. wound culture postoperative mechanical ventilation status post acute blood loss anemia, L2 lateral decompression with fusion. Reduce systolic heart failure, COPD, chronic atrial fibrillation, hypertension, obesity, dyslipidemia. Family agreed to the trach and PEG. This can be done on Saturday if they cannot wean off his ventilator in the meantime. Blood gases are stable. He had surgery with the left frontoparietal CVA. Wean off as tolerated . MMODL / IJN: [id number] /
[2024-06-18 23:05] LABS: Glucose,Whole Blood 114 mg/dL (70-110)
[2024-06-19 04:18] LABS: ABG Base Excess 8.1 mmol/L; ABG HCO3 33 mmol/L (21-25); ABG Oxygen Saturation 95.6 % (94-97); ABG PCO2 45 mmHg (35-45); ABG PH 7.47 (7.35-7.45); ABG PO2 74 mmHg (83-108); ABG TCO2 34 mmol/L (19-24); Allen Test Performed? Yes
--- NOTE | 2024-06-19 04:57 | XR ---
EXAM: XR Chest, 1 View CLINICAL HISTORY: ITS.REASON XR Reason: OG tube placement TECHNIQUE: Frontal view of the chest. COMPARISON: No relevant prior studies available. IMPRESSION: Feeding tube side-port in good position. Cardiomegaly. Mild bibasilar opacities.
[2024-06-19 06:00] LABS: Anisocytosis Slight; Basophils % (A) 0 %; Eosinophils # (A) 0.2 k/uL (0-0.7); Eosinophils % (A) 3 %; HCT 35.8 % (39.0-53.0); HGB 10.9 gm/dL (13.0-17.5); Hypochromasia Marked; Lymphocytes # (A) 0.9 k/uL (1.0-4.8); Lymphocytes % (A) 12 %; MCH 27.7 pg (25.0-35.0); MCHC 30.5 g/dL (31.0-37.0); MCV 90.6 fL (80.0-100.0); Mean Platelet Volume 7.5; Monocytes # (A) 0.7 k/uL (0-1.0); Monocytes % (A) 9 %; Neutrophils % (A) 75 %; Platelet Count 590 k/uL (150-450); Poikilocytosis Slight; RBC 3.96 m/uL (4.30-5.90); RDW 16.5 % (11.5-15.5)
[2024-06-19 06:24] LABS: ALT 52 U/L (4-49); AST 42 U/L (17-59); African American GFR (CKD) >90 (>60 ml/min/1.73 sqM); Albumin 2.8 g/dL (3.5-5.0); Alkaline Phosphatase 144 U/L (38-126); Anion Gap 3 mmol/L; Blood Urea Nitrogen 16 mg/dL (9-20); Calcium 8.5 mg/dL (8.4-10.2); Carbon Dioxide 28 mmol/L (22-30); Chloride 104 mmol/L (98-107); Glucose 101 mg/dL (74-99); Non-African American GFR(CKD) >90 (>60 ml/min/1.73 sqM); Sodium 135 mmol/L (137-145); Total Bilirubin 1.1 mg/dL (0.2-1.3); Total Protein 5.1 g/dL (6.3-8.2)
[2024-06-19 06:32] LABS: Glucose,Whole Blood 113 mg/dL (70-110)
--- NOTE | 2024-06-19 07:58 | XR ---
EXAMINATION TYPE: XR chest 1V portable DATE OF EXAM: 06/19/2024 HISTORY: Shortness of breath. COMPARISON: 06/19/2024 TECHNIQUE: Single view of the chest is submitted. FINDINGS: Endotracheal tube is approximately 8.9 cm from the shashank. Previously an NG tube coursing towards the stomach and appears to reside within the stomach. Pulmonary venous congestion without overt failure. The heart is stable. Hilar and mediastinal structures are within normal limits. Degenerative changes are seen of the dorsal spine. IMPRESSION: 1. Pulmonary venous congestion without overt failure.
--- NOTE | 2024-06-19 10:40 | P.PN ---
Subjective Progress Note Date: 06/19/24 Principal diagnosis: CVA. Patient is a 58-year-old white male with past medical history significant for obstructive sleep apnea with home CPAP, COPD, ex tobacco smoker, marijuana smoker, atrial fibrillation with previous cardioversion and anticoagulated on Xarelto, diabetes mellitus, hypertension, heart failure, and previous spinal surgeries. His primary care provider is Dr. Deuce Brito. He is currently intubated to the mechanical ventilator, unable to provide any information for HPI. Of note, patient recently underwent an L2 to pelvis posterior lateral decompression and fusion on 05/19/2024 at [facility]. During this admission, he initially was recovered in the intensive care unit. Technically, difficult to extubate, and did require BiPAP support immediately after extubation. He was eventually discharged home on 05/26/2024. Patient returned the emergency department on 06/06/2024. On review of the ER documentation, he had a fall while at home. CT of the lumbar spine demonstrated new compression fracture of L2 vertebral body with compression of the vertebral body down to the pedicle screws bilaterally and loosening the left pedicle screw. New left pedicle/transverse process of L2 and L3 fractures around the hardware with mild displacement. Fractures of the right transverse process of L2 and L3. Likely postsurgical subcutaneous gas in the surgical bed. Patient underwent revision thoracic T10 to pelvis decompression fusion yesterday. Intraoperatively, patient had an EBL of 1 L. He has received a total of 5 units of PRBCs, 1 FFP, and 1 pack platelets. He was sent to the intensive care unit postoperatively. He remains on the mechanical ventilator. Chest x-ray shows the endotracheal tube approximately 4.3 cm above the shashank. There is cardiomegaly with pulmonary vascular congestion suggested. No pleural effusions, pneumothoraces, focal consolidations. Initial ABG had a PaO2 of 80, pCO2 of 61, pH of 7.27. This was done on original ventilator settings of assist-control, respiratory rate 14, tidal volume 500, FiO2 1 9%, and PEEP of 5. My supervising physician is already increased the patient's respiratory rate to 20. He is currently synchronous with mechanical ventilator. There is a moderate amount of clear to white endotracheal secretions. Peak pressures 23. He is sedated with propofol which is currently infusing at 50 mcg/kg/min. He is fairly unarousable. Will withdraw to painful stimuli in all 4 extremities. There is also norepinephrine infusing at 0.02 mcg/kg/min. There is a MAP goal of 80 mmHg to support [employer] perfusion. LR is infusing at 10 MLS per hour. There is a Hemovac with a total of 220 serosanguineous output since surgery. We are awaiting postoperative labs. Preoperatively, CBC: WBC count 9.4, hemoglobin 9.6, hematocrit 32.5, platelets 516. Preoperative CMP: Sodium 137, potassium 4.1, chloride 104, serum bicarb 27, BUN 18, creatinine 0.61, glucose 143. LFTs unremarkable. Receiving prophylactic cefazolin. Note that preoperatively, patient did have a cardiac evaluation. Repeat echocardiogram shows a severely reduced left ventricular ejection fraction of 25 to 30% as well as mild mitral and tricuspid regurgitation. Heart rhythm is atrial fibrillation with controlled ventricular response. Normally anticoagulated on Xarelto, however, this is on hold for surgery. Progress note dated June 11, 2024. 58-year-old male recently had additional back surgery, including a T10 to pelvic decompression and fusion. Please see my consultation from yesterday. Today is postop day #2. The patient was brought back to the ICU on the ventilator. Will be woke him up for the daily interruption of sedation yesterday, it was noted that he was not moving his right side. He was sent for an immediate CT scan without contrast. It showed a subacute left frontoparietal CVA. It was isch emic in nature. He remains on mechanical ventilator. He is on volume assist- control, rate 20, tidal line 500, FiO2 50% to be dropped down to 40%, and PEEP of 5. Blood gases show pO2 118, pCO2 37, pH is 7.47. The patient is taking propofol at 50 mcg/kg/min, saline at KVO norepinephrine at 2 mcg/min IV heparin, and vital HP at 20 cc an hour with a goal of 37 cc. White count 8.9, hemoglobin 10, hematocrit 32.3, platelet count 262,000. PTT is 36.6. Sodium 136, potassium 4.2, chlorides 105, CO2 24, BUN 14, creatinine 0.37. Glucose is 138. Hemoglobin A1c is 6.6. Chest x-ray is essentially within normal range today for cardiomegaly. Progress note dated June 12, 2024. 58-year-old male seen again in room 255. The patient remains on mechanical ventilation. He is on volume assist-control, rate 20, tidal volume 500, FiO2 40%, PEEP of 5. Blood gases show pO2 of 80, pCO2 41, pH is 7.49. This blood gases consistent with metabolic alkalosis. The patient is on propofol at 25 mcg/kg/min, heparin via weight-based protocol, and vital HP at 37 cc an hour, which is goal. The patient had evidence of E. coli from the wound culture, the Escherichia coli is ESBL E. coli. For that reason he is on ertapenem. We will attempt a daily interruption of sedation. The patient did poorly with this holiday yesterday. His mental status was poor, but he still has increased secretions. He may eventually need tracheostomy and PEG tube placement. White count 5.4, hemoglobin 10.4, hematocrit 33.8, platelet count 338,000. PTT is 58.6. Sodium 139, potassium 3.5, chlorides 107, CO2 31, BUN 17, creatinine 0.37. Glucose is 108. Calcium 8.2. Chest x-ray shows a pattern of pulmonary vascular congestion, and bilateral effusions. Progress note dated June 14, 2024. 58-year-old male seen again in room 255. The patient remains on mechanical ventilation, and has done very poorly with his sedation holidays. He may end up with a tracheostomy and peg tube placement. Currently, he is on volume assist- control, rate 20, tidal volume 500, FiO2 40%, PEEP of 5. Blood gases show pO2 of 75, pCO2 of 41, pH is 7.49. He is getting saline at KVO, propofol at 20 mcg/kg/min, and IV heparin. He is on vital high-protein at 37 cc an hour, which is goal. He is also getting ertapenem, for an ESBL E. coli wound infection. Labs include a white count of 6, hemoglobin 10.8, hematocrit 34.6, and a hemant telet count of 370,000. Sodium 138, potassium 3.8, chlorides 107, CO2 27, BUN 18, and creatinine 0.35. Glucose is 133. Calcium 8.5. Magnesium 1.9. Chest x-ray shows unchanged chest x-ray with stable tubes and lines. Brain CT shows left MCA territory involving acute/subacute CVA, with no evidence for hemorrhagic conversion. Progress note dated June 15, 2024. 58-year-old male seen again in room 255. He remains on mechanical ventilation. He is on volume assist-control, rate 20, tidal line 500, FiO2 40%, PEEP of 5. Blood gases show pO2 of 81, pCO2 41, pH is 7.5. Blood gases are consistent with metabolic alkalosis. He is currently on propofol at 20 mcg/kg/min, heparin via weight-based protocol, saline at KVO, and vital high-protein at 37, which is goal. The patient will have a consult placed to surgery, for tracheostomy and PEG tube placement. His peak airway pressure is 19 cm of water. His plateau pressures 14 cm of water. The patient's airways resistance is 4.63 cmH2O per liters per second. White count is 5.8, hemoglobin 10.3, hematocrit 33.3, platelet count 3 and 44,000. Sodium 137, potassium 4, chloride 106, CO2 26, BUN 19, and creatinine 0.34. Glucose is 125. Calcium 8.2. Wound cultures are positive for ESBL Escherichia coli. Chest x-ray shows scattered bilateral infiltrates, which are unchanged. Progress note dated June 16, 2024. 58-year-old male seen again in room 255. He remains on mechanical ventilator. I did have a conversation with his Sister Altagracia today, about making the decision to proceed with tracheostomy and PEG tube placement. She was going to get back with us later today. He is on volume assist-control, rate 20, tidal volume 500, FiO2 40%, PEEP of 5. Blood gases show pO2 of 95, pCO2 43, pH is 7.47. The patient is on IV heparin via weight-based protocol, propofol at 20 mcg/kg/min, and vital AF at goal, which is 40 cc an hour. Labs include a white count 5.4, hemoglobin 10.7, hematocrit 34.6, and platelet count 435,000. PTT is 53.3. Sodium 137, potassium 3.8, chlorides 105, CO2 27, BUN 17, and creatinine 0.34. Wound cultures, were positive for ESBL Escherichia coli. For that reason, he is on ertapenem. Portable chest x-ray is largely unchanged. Progress note dated June 17, 2024. 58-year-old male seen in room 255. He remains on mechanical ventilator. He is on volume assist-control, rate 20, tidal volume 500, FiO2 40%, PEEP of 5. Blood gases show pO2 of 91, pCO2 44, pH is 7.47. He remains on propofol at 20 mcg/kg/min heparin via weight-based protocol, and saline at KVO. He is getting vital HP at 40, which is goal. I had a conversation with his Sister Altagracia yesterday, because I would like to move forward with tracheostomy tube insertion and PEG tube placement. Apparently, another sibling is coming into the hospital today to discuss those surgical procedures. White count 7.2, hemoglobin 10.9, hematocrit 35.3, and platelet count 494,000. PTT is 42.7. Sodium 137, potassium 3.6, chlorides 104, CO2 27, BUN 15, creatinine 0.34. Calcium 8.2. Glucose 120. Wound cultures from June 09, are positive for ESBL Escherichia coli. Chest x-ray shows evidence of cardiomegaly, mild pulmonary vascular c ongestion. Progress note dated June 18, 2024. 58-year-old male seen again in room 255. The patient remains on the mechanical ventilator. Ventilator settings include volume assist-control, rate 20, tidal volume 500, FiO2 40%, and PEEP of 5. Blood gases show pO2 of 80, pCO2 of 45, pH is 7.46. He continues on a heparin drip, via weight-based protocol, propofol at 25 mcg/kg/min, saline at 10 cc an hour. He is also getting vital high-protein at 40 cc an hour, which is goal. The patient will have a daily interruption of sedation, and spontaneous breathing trial today, on a pressure support of 5, CPAP of 5. Current labs include a white count 9, hemoglobin 11.3, hematocrit 36.6, and a platelet count of 599,000. PTT is 61.4. Sodium 138, potassium 3.6, chlorides 104, CO2 31, BUN 16, creatinine 0.36. Glucose is 118. Albumin is 2.6. Wound cultures, done on June 09, show evidence of ESBL Escherichia coli. For that, the patient is on ertapenem. Chest x-ray is largely unchanged. Progress note dated June 19, 2024. 58-year-old male again seen in the intensive care unit, room 255. The patient remains critically ill on the ventilator. Ventilator settings include volume assist-control, rate 20, tidal volume 500, FiO2 40%, PEEP of 5. Blood gases show pO2 of 74, pCO2 of 45, pH is 7.47. These blood gases are consistent with mild metabolic alkalosis. The patient is on heparin via weight-based protocol, propofol at 20 mcg/kg/min, vital high-protein at 40 cc an hour which is goal, and saline at 10 cc an hour. The patient will have a tracheostomy and PEG tube placement on Saturday. Yesterday he spent pretty much the whole day on pressure support and CPAP, but, was not able to be extubated, because of mental status changes and airway secretions. We will advance endotracheal tube 2 cm, as it appears high on the chest x-ray today. Current labs include a white count of 8, hemoglobin 10.9, hematocrit 35.8, platelet count 590,000. Sodium 135, potassium 4, chlorides 104, CO2 28, BUN 16, creatinine 0.28. Glucose 113. Albumin 2.8. The patient has a wound infection caused by ESBL Escherichia coli. For that he is on ertapenem. I have urged infectious diseases to give us an end date on his antibiotics. Chest x-ray shows some pulmonary venous congestion. Objective - Vital Signs Vital signs: Vital Signs Temp 98.2 F 06/19/24 04:00 Pulse 84 06/19/24 08:22 Resp 16 06/19/24 07:00 BP 114/78 06/19/24 07:00 Pulse Ox 96 06/19/24 07:00 FiO2 40 06/19/24 07:42 Intake & Output 06/18/24 06/19/24 06/19/24 18:59 06:59 18:59 Intake Total 2486.993 4316.364 276.524 Output Total 1130 960 Balance -93.008 4092.364 276.524 Weight 109.7 kg Intake: IV 170 130 Ertapenem 1 gm In Sodium 50 Chloride 0.9% 50 ml @ 100 mls/hr IVPB DAILY [facility] Rx #:[id number] kvo 120 130 Intake, IV Titration 296.992 502.364 276.524 Amount Heparin Sod,Pork in 0.45% 192.699 218.821 233.586 NaCl 25,000 unit In 0.45 % NaCl 1 250ml.bag @ 8.65 UNITS/KG/HR 9.999 mls/hr IV .Q24H [facility] Rx#: [id number] propofoL 1,000 mg In 104.293 283.543 42.938 Empty Bag 1 bag @ 15 MCG/ KG/MIN 10.305 mls/hr IV . [id number] [facility] Rx#:[id number] Tube Feeding 480 4360 Other 90 60 Output: Urine 1130 960 Other: Voiding Method Indwelling Catheter Indwelling Catheter ABP, PAP, CO, CI - Last Documented Arterial Blood Pressure 106/58 - Exam No acute distress, sedated, with an orally placed endotracheal tube. HEENT examination is grossly unremarkable. Mucous membranes are moist. No oral lesions. Neck supple. Full range of motion. No adenopathy thyromegaly or neck vein distention. Cardiovascular examination reveals regular rhythm rate. S1-S2 normal. No S3 or S4. No discernible murmur noted. Heart rate 84 bpm. Lungs reveal mostly clear breath sounds. Minimal scattered rhonchi. No wheezes or crackles. Breath sounds equal. Saturations are 97%. Abdomen soft bowel sounds are heard. No masses or tenderness. Extremities are intact. No cyanosis clubbing or edema. Skin is without rash or lesion. Neurologic examination cannot be assessed at this time. - Labs CBC & Chem 7: 06/19/24 05:35 06/19/24 05:35 Labs: Abnormal Lab Results - Last 24 Hours (Table) 06/18/24 06/18/24 06/18/24 Range/Units 11:30 18:02 23:03 RBC (4.30-5.90) m/uL Hgb (13.0-17.5) gm/dL Hct (39.0-53.0) % MCHC (31.0-37.0) g/dL RDW (11.5-15.5) % Plt Count (150-450) k/uL Lymphocytes # (1.0-4.8) k/uL APTT (22.0-30.0) sec ABG pH (7.35-7.45) ABG pO2 (83-108) mmHg ABG HCO3 (21-25) mmol/L ABG Total CO2 (19-24) mmol/L Sodium (137-145) mmol/L Creatinine (0.66-1.25) mg/dL Glucose (74-99) mg/dL POC Glucose (mg/dL) 118 H 130 H 114 H (70-110) mg/dL ALT (4-49) U/L Alkaline Phosphatase (38-126) U/L Total Protein (6.3-8.2) g/dL Albumin (3.5-5.0) g/dL 06/19/24 06/19/24 06/19/24 Range/Units 04:15 05:35 05:35 RBC 3.96 L (4.30-5.90) m/uL Hgb 10.9 L (13.0-17.5) gm/dL Hct 35.8 L (39.0-53.0) % MCHC 30.5 L (31.0-37.0) g/dL RDW 16.5 H (11.5-15.5) % Plt Count 590 H (150-450) k/uL Lymphocytes # 0.9 L (1.0-4.8) k/uL APTT (22.0-30.0) sec ABG pH 7.47 H (7.35-7.45) ABG pO2 74 L (83-108) mmHg ABG HCO3 33 H (21-25) mmol/L ABG Total CO2 34 H (19-24) mmol/L Sodium 135 L (137-145) mmol/L Creatinine 0.28 L (0.66-1.25) mg/dL Glucose 101 H (74-99) mg/dL POC Glucose (mg/dL) (70-110) mg/dL ALT 52 H (4-49) U/L Alkaline Phosphatase 144 H (38-126) U/L Total Protein 5.1 L (6.3-8.2) g/dL Albumin 2.8 L (3.5-5.0) g/dL 06/19/24 06/19/24 Range/Units 05:35 06:31 RBC (4.30-5.90) m/uL Hgb (13.0-17.5) gm/dL Hct (39.0-53.0) % MCHC (31.0-37.0) g/dL RDW (11.5-15.5) % Plt Count (150-450) k/uL Lymphocytes # (1.0-4.8) k/uL APTT 68.2 H (22.0-30.0) sec ABG pH (7.35-7.45) ABG pO2 (83-108) mmHg ABG HCO3 (21-25) mmol/L ABG Total CO2 (19-24) mmol/L Sodium (137-145) mmol/L Creatinine (0.66-1.25) mg/dL Glucose (74-99) mg/dL POC Glucose (mg/dL) 113 H (70-110) mg/dL ALT (4-49) U/L Alkaline Phosphatase (38-126) U/L Total Protein (6.3-8.2) g/dL Albumin (3.5-5.0) g/dL Assessment and Plan Assessment: Status post fall, with L2 vertebral body compression fracture, L2-L3 right-sided transverse process fractures, and L2-L3 left-sided pedicle/transverse process fractures. Status postoperative day #9 following a revision T10 to pelvis decompression and fusion with stabilization. Routine postoperative mechanical ventilator management. Acute left frontal/parietal ischemic CVA. ESBL Escherichia coli wound infection. Recent L2 to pelvis posterior lateral decompression and fusion on 05/19/2024. Acute blood loss anemia, patient has received a total of 5 units of PRBCs perioperatively, 1 pack platelets, and is going to receive 1 unit FFP. Hypotension, resolved. Heart failure with reduced ejection fraction. Chronic atrial fibrillation. History of hypertension. History of hyperlipidemia. History of diabetes mellitus. Obesity, with a BMI of 38.4 kg/m. History of obstructive sleep apnea. Chronic obstructive pulmonary disease, stable. Former tobacco smoker. Remote history of prior C2-T2 Decompression and fusion. Plan: Plan dated June 11, 2024. The patient remains in the intensive care unit, on the mechanical ventilator. The patient did not do well yesterday with his daily interruption of sedation. It will be tried again today. The patient's FiO2 was reduced from 50%, down to 40%. The pO2 on the blood gas was 118. The patient continues on propofol at 50 mcg/kg/min, saline at KVO, and norepinephrine at 2 mcg/min. The patient is also receiving IV heparin via weight-based protocol, and vital high-protein, at 20 cc an hour, with a goal of 37 cc. The patient was discovered to have a left frontal parietal CVA, which is thought to be subacute. He is postop day #2. Labs, x-rays, and all medications are reviewed. Plan dated June 13, 2024. The patient remains in the intensive care unit. Yesterday, he did poorly with his sedation holiday. He has lots of airway secretions, and his mental status was poor. For that reason, he was resedated. We will attempt another sedation holiday today. The wound cultures, from his back, show evidence of ESBL Escherichia coli. For that reason he is on ertapenem. He continues on propofol at 25 mcg/kg/min, heparin via weight-based protocol, and vital HP at 37 cc an hour which is goal. Blood gases show pO2 of 80, pCO2 41, pH is 7.49. This blood gases consistent with metabolic alkalosis. Labs, x-rays, and medications are reviewed. The patient's overall prognosis remains guarded. We will continue to follow make recommendations along the way. Plan dated June 14, 2024. Unfortunately, every time we do a sedation holiday, the patient's neurologic status, does not improve. The patient also has lots of airway secretions. Anyway, today, the patient will not have a daily interruption of sedation. He continues on ertapenem for his ESBL Escherichia coli wound infection. He is ge tting nourished with vital high-protein at 37 cc an hour which is goal. He continues on IV heparin. The most recent brain CT is reviewed. The patient is on propofol at 20 mcg/kg/min. Blood gases showed metabolic alkalosis. We will continue to follow make recommendations along the way. The patient may need a tracheostomy and PEG tube placement, should he not show any additional improvement. Plan dated June 15, 2024. The patient has had at least 3 or 4 episodes of sedation holidays, with no neurologic improvement, and with increased airway secretions. The patient becomes agitated, tachypneic, tachycardic, and hypertensive. The patient has to be resedated. The patient will need a tracheostomy and PEG tube placement. We will contact the family if possible. Labs, x-rays, and medications are reviewed. The patient's overall prognosis remains guarded. He continues on ertapenem for his ESBL Escherichia coli wound infection. Labs, x-rays, and all medications are reviewed. Prognosis is guarded. Blood gases are consistent with a metabolic alkalosis. Plan dated June 16, 2024. The patient is seen today in room 255. He basically is essentially unchanged. I did have a conversation with his sister Altagracia, who apparently resides in [facility]. I have asked her to make a decision about tracheostomy and PEG tube placement. I would like to do that tomorrow if possible. Labs, x-rays, medications are reviewed. The patient does poorly on a sedation holiday. The patient was admitted after surgery, and had a left frontal temporal CVA. He continues on IV heparin and propofol. Labs, x-rays, and all medications have been reviewed. Prognosis is guarded. Plan dated June 17, 2024. The patient is seen today in room 255. He remains on mechanical ventilator. When the patient is off sedation, he does not appropriately respond. In addition, there is an issue with significant secretions. The patient should really proceed with a tracheostomy and PEG tube placement. I am having a hard time getting permission from the family members, including his sister Altagracia. Apparently another sibling will be by to see him today. We will ask him about that. He continues on propofol, and heparin via weight-based protocol. He is getting vital HP at 40 which is goal. Blood gases are very reasonable. Prognosis is guarded. Another option would be extubation, with primarily comfort care. Plan dated June 18, 2024. The patient's family did agree for tracheostomy and PEG tube, which apparently cannot be done till Saturday, because no surgeons are available. The patient was given a sedation holiday, placed on pressure support of 5, and CPAP of 5. The patient is not ready for extubation as his mental status is poor, and he is having issues ongoing with secretions. He continues on heparin via weight-based protocol. He is also on propofol at 25 mcg/kg/min, and vital high-protein at 40 cc an hour which is goal. Blood gases are stable. Labs, x-rays, medications are reviewed. The patient's recent surgery was complicated by a left frontal parietal CVA, with right-sided paralysis. We will continue to follow the patient, make recommendations. Prognosis is guarded. He continues on ertapenem for his ESBL wound infection secondary to Escherichia coli. Plan dated June 19, 2024. The patient remains critically ill on the mechanical ventilator. He apparently is scheduled for tracheostomy and PEG tube, on Saturday. The family has agreed. Currently, his blood gases show pO2 of 74, pCO2 45, pH is 7.47. This blood gases consistent with metabolic alkalosis. He continues on heparin via weight- based protocol, propofol at 20 mcg/kg/min, saline at 10 cc an hour, and vital high-protein at goal. The patient will have another daily interruption of sedation, and spontaneous breathing trial today. We will also advance endotracheal tube 2 cm. Labs, x-rays, and medications are reviewed. Prognosis is guarded. We will continue to follow the patient, and make recommendations where appropriate. Time with Patient: Greater than 30
[2024-06-19 11:59] LABS: Glucose,Whole Blood 120 mg/dL (70-110)
--- NOTE | 2024-06-19 15:20 | P.PN ---
Subjective Progress Note Date: 06/19/24 Principal diagnosis: Reason for follow-up is lumbar surgical site infection ESBL E. coli Patient is a 58-year-old male with a past medical history significant for diabetes mellitus hypertension COPD atrial fibrillation sleep apnea initially presented to hospital with back pain has been diagnosed with L1-L3 fracture status post extensive surgery and surgical cultures came back positive with ESBL E. coli prompted this consultation. On today's evaluation that is 06/19/2024, Patient is afebrile this morning patient remains to intubated on the vent FiO2 is currently stable at 40% no significant purulent secretions through the ET patient is hemodynamically stable not requiring pressor support and no diarrhea has been reported. Patient white count is 8.0, creatinine 0.08 blood and sputum culture has been negative Objective - Vital Signs Vital signs: Vital Signs Temp 98.5 F 06/19/24 12:00 Pulse 96 06/19/24 12:00 Resp 17 06/19/24 12:00 BP 110/75 06/19/24 12:00 Pulse Ox 99 06/19/24 12:00 FiO2 40 06/19/24 12:00 Intake & Output 06/18/24 06/19/24 06/19/24 18:59 06:59 18:59 Intake Total 6160.930 4429.364 667.381 Output Total 1130 960 925 Balance -93.008 4092.364 -257.619 Weight 109.7 kg 109.7 kg Intake: IV 170 130 100 Ertapenem 1 gm In Sodium 50 50 Chloride 0.9% 50 ml @ 100 mls/hr IVPB DAILY [facility] Rx #:[id number] kvo 120 130 50 Intake, IV Titration 296.992 502.364 307.381 Amount Heparin Sod,Pork in 0.45% 192.699 218.821 233.586 NaCl 25,000 unit In 0.45 % NaCl 1 250ml.bag @ 8.65 UNITS/KG/HR 9.999 mls/hr IV .Q24H [facility] Rx#: [id number] propofoL 1,000 mg In 104.293 283.543 73.795 Empty Bag 1 bag @ 15 MCG/ KG/MIN 10.305 mls/hr IV . Q9H43M [facility] Rx#:[id number] Tube Feeding 480 4360 200 Other 90 60 60 Output: Urine 1130 960 925 Other: Voiding Method Indwelling Catheter Indwelling Catheter Indwelling Catheter ABP, PAP, CO, CI - Last Documented Arterial Blood Pressure 106/58 - Exam GENERAL DESCRIPTION: Middle-age male intubated on the vent RESPIRATORY SYSTEM: Unlabored breathing , decreased breath sounds at bases HEART: S1 S2 regular rate and rhythm , ABDOMEN: Soft , no tenderness EXTREMITIES: No edema feet - Labs CBC & Chem 7: 06/19/24 05:35 06/19/24 05:35 Labs: Abnormal Lab Results - Last 24 Hours (Table) 06/18/24 06/18/24 06/19/24 Range/Units 18:02 23:03 04:15 RBC (4.30-5.90) m/uL Hgb (13.0-17.5) gm/dL Hct (39.0-53.0) % MCHC (31.0-37.0) g/dL RDW (11.5-15.5) % Plt Count (150-450) k/uL Lymphocytes # (1.0-4.8) k/uL APTT (22.0-30.0) sec ABG pH 7.47 H (7.35-7.45) ABG pO2 74 L (83-108) mmHg ABG HCO3 33 H (21-25) mmol/L ABG Total CO2 34 H (19-24) mmol/L Sodium (137-145) mmol/L Creatinine (0.66-1.25) mg/dL Glucose (74-99) mg/dL POC Glucose (mg/dL) 130 H 114 H (70-110) mg/dL ALT (4-49) U/L Alkaline Phosphatase (38-126) U/L Total Protein (6.3-8.2) g/dL Albumin (3.5-5.0) g/dL 06/19/24 06/19/24 06/19/24 Range/Units 05:35 05:35 05:35 RBC 3.96 L (4.30-5.90) m/uL Hgb 10.9 L (13.0-17.5) gm/dL Hct 35.8 L (39.0-53.0) % MCHC 30.5 L (31.0-37.0) g/dL RDW 16.5 H (11.5-15.5) % Plt Count 590 H (150-450) k/uL Lymphocytes # 0.9 L (1.0-4.8) k/uL APTT 68.2 H (22.0-30.0) sec ABG pH (7.35-7.45) ABG pO2 (83-108) mmHg ABG HCO3 (21-25) mmol/L ABG Total CO2 (19-24) mmol/L Sodium 135 L (137-145) mmol/L Creatinine 0.28 L (0.66-1.25) mg/dL Glucose 101 H (74-99) mg/dL POC Glucose (mg/dL) (70-110) mg/dL ALT 52 H (4-49) U/L Alkaline Phosphatase 144 H (38-126) U/L Total Protein 5.1 L (6.3-8.2) g/dL Albumin 2.8 L (3.5-5.0) g/dL 06/19/24 06/19/24 Range/Units 06:31 11:57 RBC (4.30-5.90) m/uL Hgb (13.0-17.5) gm/dL Hct (39.0-53.0) % MCHC (31.0-37.0) g/dL RDW (11.5-15.5) % Plt Count (150-450) k/uL Lymphocytes # (1.0-4.8) k/uL APTT (22.0-30.0) sec ABG pH (7.35-7.45) ABG pO2 (83-108) mmHg ABG HCO3 (21-25) mmol/L ABG Total CO2 (19-24) mmol/L Sodium (137-145) mmol/L Creatinine (0.66-1.25) mg/dL Glucose (74-99) mg/dL POC Glucose (mg/dL) 113 H 120 H (70-110) mg/dL ALT (4-49) U/L Alkaline Phosphatase (38-126) U/L Total Protein (6.3-8.2) g/dL Albumin (3.5-5.0) g/dL Assessment and Plan (1) Surgical site infection Current Visit: Yes Status: Acute Code(s): T81.49XA - INFECTION FOLLOWING A PROCEDURE, OTHER SURGICAL SITE, INIT SNOMED Code(s): 43959028 (2) Infection due to ESBL-producing Escherichia coli Current Visit: Yes Status: Acute Code(s): A49.8 - OTHER BACTERIAL INFECTIONS OF UNSPECIFIED SITE; Z16.12 - EXTENDED SPECTRUM BETA LACTAMASE (ESBL) RESISTANCE SNOMED Code(s): 480361351 Plan: 1patient presented to the hospital with back pain more than a week ago from initial evaluation in this patient who did have extensive lumbosacral spine surgery now has been taken back to the OR noticed to have hardware failure fracture of the vertebra s/p redo surgery and culture which has been finalized as ESBL E. coli 2-patient remains to be afebrile white count has been normal blood sputum culture has been negative 3patient to continue with Invanz 1 g daily and will monitor clinical course closely Dictation was produced using [employer] dictation software. please excuse any grammatical, word or spelling errors. Time with Patient: Less than 30
[2024-06-19 18:06] LABS: Glucose,Whole Blood 101 mg/dL (70-110)
--- NOTE | 2024-06-19 20:47 | CT ---
EXAMINATION TYPE: CT brain wo con CT DLP: 1197.4 mGycm, Automated exposure control for dose reduction was used. DATE OF EXAM: 06/19/2024 8:28 PM COMPARISON: CT brain 06/14/2024. CLINICAL INDICATION:Male, 58 years old with history of unequal pupils, Unequal pupils. TECHNIQUE: Brain: Axial CT images of the brain were obtained with coronal and sagittal reformats created and rev iewed. Contrast used: None. Oral contrast used: None. FINDINGS: Brain: Extra-axial spaces: No abnormal extra-axial fluid collections. Ventricular system: Within normal limits Cerebral parenchyma: Left MCA territory involving stroke predominantly involving the frontal/parietal . No acute intraparenchymal hemorrhage or mass effect. The remainder of the petersen-white junctions are well differentiated. Cerebellum: Unremarkable. Mass effect: No evidence of midline shift. Intracranial vasculature: unremarkable Soft tissues: Normal. Calvarium/osseous structures: No depressed skull fracture. Paranasal sinuses and mastoid air cells: Mild scattered paranasal sinus disease. Visualized orbits: Orbital contents are intact. IMPRESSION: Left MCA territory evolving acute/subacute CVA. No evidence for hemorrhagic conversion. No significant adverse change compared to prior exam performed June 14, 2024
[2024-06-19 23:57] LABS: Glucose,Whole Blood 110 mg/dL (70-110)
--- NOTE | 2024-06-20 04:42 | P.PN ---
Subjective Progress Note Date: 06/20/24 Principal diagnosis: CVA. Patient is a 58-year-old white male with past medical history significant for obstructive sleep apnea with home CPAP, COPD, ex tobacco smoker, marijuana smoker, atrial fibrillation with previous cardioversion and anticoagulated on Xarelto, diabetes mellitus, hypertension, heart failure, and previous spinal surgeries. His primary care provider is Dr. Deuce Brito. He is currently intubated to the mechanical ventilator, unable to provide any information for HPI. Of note, patient recently underwent an L2 to pelvis posterior lateral decompression and fusion on 05/19/2024 at [facility]. During this admission, he initially was recovered in the intensive care unit. Technically, difficult to extubate, and did require BiPAP support immediately after extubation. He was eventually discharged home on 05/26/2024. Patient returned the emergency department on 06/06/2024. On review of the ER documentation, he had a fall while at home. CT of the lumbar spine demonstrated new compression fracture of L2 vertebral body with compression of the vertebral body down to the pedicle screws bilaterally and loosening the left pedicle screw. New left pedicle/transverse process of L2 and L3 fractures around the hardware with mild displacement. Fractures of the right transverse process of L2 and L3. Likely postsurgical subcutaneous gas in the surgical bed. Patient underwent revision thoracic T10 to pelvis decompression fusion yesterday. Intraoperatively, patient had an EBL of 1 L. He has received a total of 5 units of PRBCs, 1 FFP, and 1 pack platelets. He was sent to the intensive care unit postoperatively. He remains on the mechanical ventilator. Chest x-ray shows the endotracheal tube approximately 4.3 cm above the shashank. There is cardiomegaly with pulmonary vascular congestion suggested. No pleural effusions, pneumothoraces, focal consolidations. Initial ABG had a PaO2 of 80, pCO2 of 61, pH of 7.27. This was done on original ventilator settings of assist-control, respiratory rate 14, tidal volume 500, FiO2 1 9%, and PEEP of 5. My supervising physician is already increased the patient's respiratory rate to 20. He is currently synchronous with mechanical ventilator. There is a moderate amount of clear to white endotracheal secretions. Peak pressures 23. He is sedated with propofol which is currently infusing at 50 mcg/kg/min. He is fairly unarousable. Will withdraw to painful stimuli in all 4 extremities. There is also norepinephrine infusing at 0.02 mcg/kg/min. There is a MAP goal of 80 mmHg to support [employer] perfusion. LR is infusing at 10 MLS per hour. There is a Hemovac with a total of 220 serosanguineous output since surgery. We are awaiting postoperative labs. Preoperatively, CBC: WBC count 9.4, hemoglobin 9.6, hematocrit 32.5, platelets 516. Preoperative CMP: Sodium 137, potassium 4.1, chloride 104, serum bicarb 27, BUN 18, creatinine 0.61, glucose 143. LFTs unremarkable. Receiving prophylactic cefazolin. Note that preoperatively, patient did have a cardiac evaluation. Repeat echocardiogram shows a severely reduced left ventricular ejection fraction of 25 to 30% as well as mild mitral and tricuspid regurgitation. Heart rhythm is atrial fibrillation with controlled ventricular response. Normally anticoagulated on Xarelto, however, this is on hold for surgery. Progress note dated June 11, 2024. 58-year-old male recently had additional back surgery, including a T10 to pelvic decompression and fusion. Please see my consultation from yesterday. Today is postop day #2. The patient was brought back to the ICU on the ventilator. Will be woke him up for the daily interruption of sedation yesterday, it was noted that he was not moving his right side. He was sent for an immediate CT scan without contrast. It showed a subacute left frontoparietal CVA. It was isch emic in nature. He remains on mechanical ventilator. He is on volume assist- control, rate 20, tidal line 500, FiO2 50% to be dropped down to 40%, and PEEP of 5. Blood gases show pO2 118, pCO2 37, pH is 7.47. The patient is taking propofol at 50 mcg/kg/min, saline at KVO norepinephrine at 2 mcg/min IV heparin, and vital HP at 20 cc an hour with a goal of 37 cc. White count 8.9, hemoglobin 10, hematocrit 32.3, platelet count 262,000. PTT is 36.6. Sodium 136, potassium 4.2, chlorides 105, CO2 24, BUN 14, creatinine 0.37. Glucose is 138. Hemoglobin A1c is 6.6. Chest x-ray is essentially within normal range today for cardiomegaly. Progress note dated June 12, 2024. 58-year-old male seen again in room 255. The patient remains on mechanical ventilation. He is on volume assist-control, rate 20, tidal volume 500, FiO2 40%, PEEP of 5. Blood gases show pO2 of 80, pCO2 41, pH is 7.49. This blood gases consistent with metabolic alkalosis. The patient is on propofol at 25 mcg/kg/min, heparin via weight-based protocol, and vital HP at 37 cc an hour, which is goal. The patient had evidence of E. coli from the wound culture, the Escherichia coli is ESBL E. coli. For that reason he is on ertapenem. We will attempt a daily interruption of sedation. The patient did poorly with this holiday yesterday. His mental status was poor, but he still has increased secretions. He may eventually need tracheostomy and PEG tube placement. White count 5.4, hemoglobin 10.4, hematocrit 33.8, platelet count 338,000. PTT is 58.6. Sodium 139, potassium 3.5, chlorides 107, CO2 31, BUN 17, creatinine 0.37. Glucose is 108. Calcium 8.2. Chest x-ray shows a pattern of pulmonary vascular congestion, and bilateral effusions. Progress note dated June 14, 2024. 58-year-old male seen again in room 255. The patient remains on mechanical ventilation, and has done very poorly with his sedation holidays. He may end up with a tracheostomy and peg tube placement. Currently, he is on volume assist- control, rate 20, tidal volume 500, FiO2 40%, PEEP of 5. Blood gases show pO2 of 75, pCO2 of 41, pH is 7.49. He is getting saline at KVO, propofol at 20 mcg/kg/min, and IV heparin. He is on vital high-protein at 37 cc an hour, which is goal. He is also getting ertapenem, for an ESBL E. coli wound infection. Labs include a white count of 6, hemoglobin 10.8, hematocrit 34.6, and a hemant telet count of 370,000. Sodium 138, potassium 3.8, chlorides 107, CO2 27, BUN 18, and creatinine 0.35. Glucose is 133. Calcium 8.5. Magnesium 1.9. Chest x-ray shows unchanged chest x-ray with stable tubes and lines. Brain CT shows left MCA territory involving acute/subacute CVA, with no evidence for hemorrhagic conversion. Progress note dated June 15, 2024. 58-year-old male seen again in room 255. He remains on mechanical ventilation. He is on volume assist-control, rate 20, tidal line 500, FiO2 40%, PEEP of 5. Blood gases show pO2 of 81, pCO2 41, pH is 7.5. Blood gases are consistent with metabolic alkalosis. He is currently on propofol at 20 mcg/kg/min, heparin via weight-based protocol, saline at KVO, and vital high-protein at 37, which is goal. The patient will have a consult placed to surgery, for tracheostomy and PEG tube placement. His peak airway pressure is 19 cm of water. His plateau pressures 14 cm of water. The patient's airways resistance is 4.63 cmH2O per liters per second. White count is 5.8, hemoglobin 10.3, hematocrit 33.3, platelet count 3 and 44,000. Sodium 137, potassium 4, chloride 106, CO2 26, BUN 19, and creatinine 0.34. Glucose is 125. Calcium 8.2. Wound cultures are positive for ESBL Escherichia coli. Chest x-ray shows scattered bilateral infiltrates, which are unchanged. Progress note dated June 16, 2024. 58-year-old male seen again in room 255. He remains on mechanical ventilator. I did have a conversation with his Sister Altagracia today, about making the decision to proceed with tracheostomy and PEG tube placement. She was going to get back with us later today. He is on volume assist-control, rate 20, tidal volume 500, FiO2 40%, PEEP of 5. Blood gases show pO2 of 95, pCO2 43, pH is 7.47. The patient is on IV heparin via weight-based protocol, propofol at 20 mcg/kg/min, and vital AF at goal, which is 40 cc an hour. Labs include a white count 5.4, hemoglobin 10.7, hematocrit 34.6, and platelet count 435,000. PTT is 53.3. Sodium 137, potassium 3.8, chlorides 105, CO2 27, BUN 17, and creatinine 0.34. Wound cultures, were positive for ESBL Escherichia coli. For that reason, he is on ertapenem. Portable chest x-ray is largely unchanged. Progress note dated June 17, 2024. 58-year-old male seen in room 255. He remains on mechanical ventilator. He is on volume assist-control, rate 20, tidal volume 500, FiO2 40%, PEEP of 5. Blood gases show pO2 of 91, pCO2 44, pH is 7.47. He remains on propofol at 20 mcg/kg/min heparin via weight-based protocol, and saline at KVO. He is getting vital HP at 40, which is goal. I had a conversation with his Sister Altagracia yesterday, because I would like to move forward with tracheostomy tube insertion and PEG tube placement. Apparently, another sibling is coming into the hospital today to discuss those surgical procedures. White count 7.2, hemoglobin 10.9, hematocrit 35.3, and platelet count 494,000. PTT is 42.7. Sodium 137, potassium 3.6, chlorides 104, CO2 27, BUN 15, creatinine 0.34. Calcium 8.2. Glucose 120. Wound cultures from June 09, are positive for ESBL Escherichia coli. Chest x-ray shows evidence of cardiomegaly, mild pulmonary vascular c ongestion. Progress note dated June 18, 2024. 58-year-old male seen again in room 255. The patient remains on the mechanical ventilator. Ventilator settings include volume assist-control, rate 20, tidal volume 500, FiO2 40%, and PEEP of 5. Blood gases show pO2 of 80, pCO2 of 45, pH is 7.46. He continues on a heparin drip, via weight-based protocol, propofol at 25 mcg/kg/min, saline at 10 cc an hour. He is also getting vital high-protein at 40 cc an hour, which is goal. The patient will have a daily interruption of sedation, and spontaneous breathing trial today, on a pressure support of 5, CPAP of 5. Current labs include a white count 9, hemoglobin 11.3, hematocrit 36.6, and a platelet count of 599,000. PTT is 61.4. Sodium 138, potassium 3.6, chlorides 104, CO2 31, BUN 16, creatinine 0.36. Glucose is 118. Albumin is 2.6. Wound cultures, done on June 09, show evidence of ESBL Escherichia coli. For that, the patient is on ertapenem. Chest x-ray is largely unchanged. Progress note dated June 19, 2024. 58-year-old male again seen in the intensive care unit, room 255. The patient remains critically ill on the ventilator. Ventilator settings include volume assist-control, rate 20, tidal volume 500, FiO2 40%, PEEP of 5. Blood gases show pO2 of 74, pCO2 of 45, pH is 7.47. These blood gases are consistent with mild metabolic alkalosis. The patient is on heparin via weight-based protocol, propofol at 20 mcg/kg/min, vital high-protein at 40 cc an hour which is goal, and saline at 10 cc an hour. The patient will have a tracheostomy and PEG tube placement on Saturday. Yesterday he spent pretty much the whole day on pressure support and CPAP, but, was not able to be extubated, because of mental status changes and airway secretions. We will advance endotracheal tube 2 cm, as it appears high on the chest x-ray today. Current labs include a white count of 8, hemoglobin 10.9, hematocrit 35.8, platelet count 590,000. Sodium 135, potassium 4, chlorides 104, CO2 28, BUN 16, creatinine 0.28. Glucose 113. Albumin 2.8. The patient has a wound infection caused by ESBL Escherichia coli. For that he is on ertapenem. I have urged infectious diseases to give us an end date on his antibiotics. Chest x-ray shows some pulmonary venous congestion. Progress note dated June 20, 2024. 58-year-old male seen in room 255. The patient remains critically ill on the mechanical ventilator. Ventilator settings include volume assist-control, rate 20, tidal volume 500, FiO2 40%, PEEP of 5. Blood gases are currently pending. Patient continues on heparin via weight-based protocol, and tube feedings. In addition, the patient remains on propofol at 20 mcg/kg/min. Current laboratory data from June 20 are pending. Patient is able to tolerate. Pressure support and CPAP. Because of his poor mental status from a CVA, and airway secretions, it has been decided not to extubate the patient. Rather, the patient will have a tracheostomy and PEG tube placed on Saturday. Labs, x-rays, and all medications are reviewed. The patient also continues on ertapenem, for his ESBL Escherichia coli. Current medications include vitamin C, Lipitor, Dulcolax, Pulmicort, We llbutrin, chlorhexidine, vitamin D3, Flexeril, Farxiga, ertapenem, ferrous sulfate, formoterol, Lasix, Neurontin, heparin, Dilaudid, insulin, DuoNeb, magnesium, metoprolol, Singulair, Narcan, Zofran, Protonix, Paxil, potassium protocol, and Senokot. Objective - Vital Signs Vital signs: Vital Signs Temp 98.4 F 06/20/24 04:00 Pulse 81 06/20/24 04:00 Resp 20 06/20/24 04:00 BP 131/94 06/20/24 04:00 Pulse Ox 98 06/20/24 04:00 FiO2 40 06/20/24 04:00 Intake & Output 06/19/24 06/19/24 06/20/24 06:59 18:59 06:59 Intake Total 5052.364 1146.580 989.894 Output Total 960 1435 840 Balance 4092.364 -288.420 149.894 Weight 109.7 kg 109.7 kg 108.6 kg Intake: IV 130 170 90 Ertapenem 1 gm In Sodium 50 Chloride 0.9% 50 ml @ 100 mls/hr IVPB DAILY [facility] Rx #:[id number] kvo 130 120 90 Intake, IV Titration 502.364 406.580 449.894 Amount Heparin Sod,Pork in 0.45% 218.821 233.586 238.886 NaCl 25,000 unit In 0.45 % NaCl 1 250ml.bag @ 8.65 UNITS/KG/HR 9.999 mls/hr IV .Q24H [facility] Rx#: [id number] propofoL 1,000 mg In 283.543 172.994 211.008 Empty Bag 1 bag @ 15 MCG/ KG/MIN 10.305 mls/hr IV . [id number] [facility] Rx#:[id number] Tube Feeding 4360 480 360 Other 60 90 90 Output: Urine 960 1435 840 Other: Voiding Method Indwelling Catheter Indwelling Catheter Indwelling Catheter ABP, PAP, CO, CI - Last Documented Arterial Blood Pressure 106/58 - Exam No acute distress, sedated, with an orally placed endotracheal tube. HEENT examination is grossly unremarkable. Mucous membranes are moist. No oral lesions. Neck supple. Full range of motion. No adenopathy thyromegaly or neck vein distention. Cardiovascular examination reveals regular rhythm rate. S1-S2 normal. No S3 or S4. No discernible murmur noted. Heart rate 81 bpm. Lungs reveal mostly clear breath sounds. Minimal scattered rhonchi. No wheezes or crackles. Breath sounds equal. Saturations are 98 %. Abdomen soft bowel sounds are heard. No masses or tenderness. Extremities are intact. No cyanosis clubbing or edema. Skin is without rash or lesion. Neurologic examination cannot be assessed at this time. - Labs CBC & Chem 7: 06/19/24 05:35 06/19/24 05:35 Labs: Abnormal Lab Results - Last 24 Hours (Table) 06/19/24 06/19/24 06/19/24 Range/Units 04:15 05:35 05:35 RBC 3.96 L (4.30-5.90) m/uL Hgb 10.9 L (13.0-17.5) gm/dL Hct 35.8 L (39.0-53.0) % MCHC 30.5 L (31.0-37.0) g/dL RDW 16.5 H (11.5-15.5) % Plt Count 590 H (150-450) k/uL Lymphocytes # 0.9 L (1.0-4.8) k/uL APTT (22.0-30.0) sec ABG pH 7.47 H (7.35-7.45) ABG pO2 74 L (83-108) mmHg ABG HCO3 33 H (21-25) mmol/L ABG Total CO2 34 H (19-24) mmol/L Sodium 135 L (137-145) mmol/L Creatinine 0.28 L (0.66-1.25) mg/dL Glucose 101 H (74-99) mg/dL POC Glucose (mg/dL) (70-110) mg/dL ALT 52 H (4-49) U/L Alkaline Phosphatase 144 H (38-126) U/L Total Protein 5.1 L (6.3-8.2) g/dL Albumin 2.8 L (3.5-5.0) g/dL 06/19/24 06/19/24 06/19/24 Range/Units 05:35 06:31 11:57 RBC (4.30-5.90) m/uL Hgb (13.0-17.5) gm/dL Hct (39.0-53.0) % MCHC (31.0-37.0) g/dL RDW (11.5-15.5) % Plt Count (150-450) k/uL Lymphocytes # (1.0-4.8) k/uL APTT 68.2 H (22.0-30.0) sec ABG pH (7.35-7.45) ABG pO2 (83-108) mmHg ABG HCO3 (21-25) mmol/L ABG Total CO2 (19-24) mmol/L Sodium (137-145) mmol/L Creatinine (0.66-1.25) mg/dL Glucose (74-99) mg/dL POC Glucose (mg/dL) 113 H 120 H (70-110) mg/dL ALT (4-49) U/L Alkaline Phosphatase (38-126) U/L Total Protein (6.3-8.2) g/dL Albumin (3.5-5.0) g/dL Assessment and Plan Assessment: Status post fall, with L2 vertebral body compression fracture, L2-L3 right-sided transverse process fractures, and L2-L3 left-sided pedicle/transverse process f ractures. Status postoperative day #10 following a revision T10 to pelvis decompression and fusion with stabilization. Routine postoperative mechanical ventilator management. Acute left frontal/parietal ischemic CVA. ESBL Escherichia coli wound infection. Recent L2 to pelvis posterior lateral decompression and fusion on 05/19/2024. Acute blood loss anemia, patient has received a total of 5 units of PRBCs perioperatively, 1 pack platelets, and is going to receive 1 unit FFP. Hypotension, resolved. Heart failure with reduced ejection fraction. Chronic atrial fibrillation. History of hypertension. History of hyperlipidemia. History of diabetes mellitus. Obesity, with a BMI of 38.4 kg/m. History of obstructive sleep apnea. Chronic obstructive pulmonary disease, stable. Former tobacco smoker. Remote history of prior C2-T2 Decompression and fusion. Plan: Plan dated June 11, 2024. The patient remains in the intensive care unit, on the mechanical ventilator. The patient did not do well yesterday with his daily interruption of sedation. It will be tried again today. The patient's FiO2 was reduced from 50%, down to 40%. The pO2 on the blood gas was 118. The patient continues on propofol at 50 mcg/kg/min, saline at KVO, and norepinephrine at 2 mcg/min. The patient is also receiving IV heparin via weight-based protocol, and vital high-protein, at 20 cc an hour, with a goal of 37 cc. The patient was discovered to have a left frontal parietal CVA, which is thought to be subacute. He is postop day #2. Labs, x-rays, and all medications are reviewed. Plan dated June 13, 2024. The patient remains in the intensive care unit. Yesterday, he did poorly with his sedation holiday. He has lots of airway secretions, and his mental status was poor. For that reason, he was resedated. We will attempt another sedation holiday today. The wound cultures, from his back, show evidence of ESBL Escherichia coli. For that reason he is on ertapenem. He continues on propofol at 25 mcg/kg/min, heparin via weight-based protocol, and vital HP at 37 cc an hour which is goal. Blood gases show pO2 of 80, pCO2 41, pH is 7.49. This blood gases consistent with metabolic alkalosis. Labs, x-rays, and medications are reviewed. The patient's overall prognosis remains guarded. We will continue to follow make recommendations along the way. Plan dated June 14, 2024. Unfortunately, every time we do a sedation holiday, the patient's neurologic status, does not improve. The patient also has lots of airway secretions. Anyway, today, the patient will not have a daily interruption of sedation. He continues on ertapenem for his ESBL Escherichia coli wound infection. He is getting nourished with vital high-protein at 37 cc an hour which is goal. He continues on IV heparin. The most recent brain CT is reviewed. The patient is on propofol at 20 mcg/kg/min. Blood gases showed metabolic alkalosis. We will continue to follow make recommendations along the way. The patient may need a tracheostomy and PEG tube placement, should he not show any additional improvement. Plan dated June 15, 2024. The patient has had at least 3 or 4 episodes of sedation holidays, with no neurologic improvement, and with increased airway secretions. The patient becomes agitated, tachypneic, tachycardic, and hypertensive. The patient has to be resedated. The patient will need a tracheostomy and PEG tube placement. We will contact the family if possible. Labs, x-rays, and medications are reviewed. The patient's overall prognosis remains guarded. He continues on ertapenem for his ESBL Escherichia coli wound infection. Labs, x-rays, and all medications are reviewed. Prognosis is guarded. Blood gases are consistent with a metabolic alkalosis. Plan dated June 16, 2024. The patient is seen today in room 255. He basically is essentially unchanged. I did have a conversation with his sister Altagracia, who apparently resides in the [facility]. I have asked her to make a decision about tracheostomy and PEG tube placement. I would like to do that tomorrow if possible. Labs, x-rays, medications are reviewed. The patient does poorly on a sedation holiday. The patient was admitted after surgery, and had a left frontal temporal CVA. He continues on IV heparin and propofol. Labs, x-rays, and all medications have been reviewed. Prognosis is guarded. Plan dated June 17, 2024. The patient is seen today in room 255. He remains on mechanical ventilator. When the patient is off sedation, he does not appropriately respond. In addition, there is an issue with significant secretions. The patient should really proceed with a tracheostomy and PEG tube placement. I am having a hard time getting permission from the family members, including his sister Altagracia. Apparently another sibling will be by to see him today. We will ask him about that. He continues on propofol, and heparin via weight-based protocol. He is getting vital HP at 40 which is goal. Blood gases are very reasonable. Pro gnosis is guarded. Another option would be extubation, with primarily comfort care. Plan dated June 18, 2024. The patient's family did agree for tracheostomy and PEG tube, which apparently cannot be done till Saturday, because no surgeons are available. The patient was given a sedation holiday, placed on pressure support of 5, and CPAP of 5. The patient is not ready for extubation as his mental status is poor, and he is having issues ongoing with secretions. He continues on heparin via weight-based protocol. He is also on propofol at 25 mcg/kg/min, and vital high-protein at 40 cc an hour which is goal. Blood gases are stable. Labs, x-rays, medications are reviewed. The patient's recent surgery was complicated by a left frontal parietal CVA, with right-sided paralysis. We will continue to follow the patient, make recommendations. Prognosis is guarded. He continues on ertapenem for his ESBL wound infection secondary to Escherichia coli. Plan dated June 19, 2024. The patient remains critically ill on the mechanical ventilator. He apparently is scheduled for tracheostomy and PEG tube, on Saturday. The family has agreed. Currently, his blood gases show pO2 of 74, pCO2 45, pH is 7.47. This blood gases consistent with metabolic alkalosis. He continues on heparin via weight- based protocol, propofol at 20 mcg/kg/min, saline at 10 cc an hour, and vital high-protein at goal. The patient will have another daily interruption of sedation, and spontaneous breathing trial today. We will also advance endotracheal tube 2 cm. Labs, x-rays, and medications are reviewed. Prognosis is guarded. We will continue to follow the patient, and make recommendations where appropriate. Plan dated June 20, 2024. The patient remains critically ill on mechanical ventilator. The patient unfortunately suffered a left frontal parietal CVA. The patient is scheduled to have tracheostomy and PEG tube placement on Saturday. The family has agreed with this plan. Labs, x-rays, and all medications have been reviewed. Patient continues on IV heparin. We will continue to follow the patient, make recommendations where appropriate. The patient will also have noted daily interruption of sedation today, with a spontaneous breathing trial, both on pressure support and CPAP. I have also asked the nurse called infectious disease doctor, to determine the length of treatment with ertapenem. Overall prognosis remains guarded. Patient will likely need to be transferred to a specialized nursing facility or long-term acute care facility. Time with Patient: Greater than 30
[2024-06-20 05:11] LABS: Anisocytosis Slight; HCT 36.5 % (39.0-53.0); HGB 11.2 gm/dL (13.0-17.5); Hypochromasia Marked; MCH 27.7 pg (25.0-35.0); MCHC 30.6 g/dL (31.0-37.0); MCV 90.4 fL (80.0-100.0); Mean Platelet Volume 6.9; Platelet Count 674 k/uL (150-450); Poikilocytosis Slight; RBC 4.03 m/uL (4.30-5.90); RDW 16.6 % (11.5-15.5); WBC 8.4 k/uL (3.8-10.6)
[2024-06-20 05:15] LABS: ABG Base Excess 7.8 mmol/L; ABG HCO3 32 mmol/L (21-25); ABG Oxygen Saturation 95.4 % (94-97); ABG PCO2 43 mmHg (35-45); ABG PH 7.48 (7.35-7.45); ABG PO2 73 mmHg (83-108); ABG TCO2 33 mmol/L (19-24); Allen Test Performed? Yes
[2024-06-20 05:22] LABS: African American GFR (CKD) >90 (>60 ml/min/1.73 sqM); Anion Gap 3 mmol/L; Blood Urea Nitrogen 16 mg/dL (9-20); Calcium 8.6 mg/dL (8.4-10.2); Carbon Dioxide 29 mmol/L (22-30); Chloride 105 mmol/L (98-107); Glucose 119 mg/dL (74-99); Non-African American GFR(CKD) >90 (>60 ml/min/1.73 sqM); Potassium 3.7 mmol/L (3.5-5.1); Sodium 137 mmol/L (137-145)
[2024-06-20 05:35] LABS: Glucose,Whole Blood 128 mg/dL (70-110)
[2024-06-20] MEDS: POTASSIUM BICARBONATE/CIT AC 20 MEQ TABLET.EFF NG-TUBE SCH ×2 (05:37→18:54)
--- NOTE | 2024-06-20 06:35 | XR ---
EXAMINATION TYPE: XR chest 1V portable DATE OF EXAM: 06/20/2024 COMPARISON: 06/19/2024 HISTORY: Pulmonary congestion TECHNIQUE: Single frontal view of the chest is obtained. FINDINGS: There is an OG tube within the stomach. There is been a mild interval decrease in the bilateral pleur al effusions and pulmonary vascular congestion on the right. Pulmonary vascular congestion left is st able or slightly worse in the interval. There is no pneumothorax. There are postsurgical changes of cervical fusion. IMPRESSION: 1. Oral gastric tube within the stomach. 2. Suggestion of mild interval improvement in the acute cardiopulmonary disease most consistent with CHF/pulmonary edema.
--- NOTE | 2024-06-20 08:25 | P.PN ---
Subjective Progress Note Date: 06/19/24 CHIEF COMPLAINT: Status post fall with T10-T12 decompressions HISTORY OF PRESENT ILLNESS: The patient is a 58-year-old male status post fall with transverse process fractures and subsequent revision of T10 to pelvic decompression and fusion with stabilization. He is intensive care unit for respiratory failure. Per discussion with nurse, patient's family is agreeable for tracheostomy and gastrostomy tube placement due to prolonged ventilatory status. ROS: No reports vomiting. No fevers or chills. Morbid obesity, BMI 36.4. Obstructive sleep apnea. PHYSICAL EXAM: VITAL SIGNS: Reviewed CONSTITUTIONAL: Well developed and in no acute distress. EYES: Conjuctivae without sclera icterus. Extraocular movements grossly intact. HEAD, EARS, NOSE, THROAT: Moist buccal mucosa. Head is atraumatic, normocephalic. Hears conversational speech. No nasal drainage. RESPIRATORY: Non-labored respirations and equal bilateral excursions. CARDIOVASCULAR: Palpable 2+ radial pulses. ABDOMEN: Obese. MUSCULOSKELETAL: No gross deformity of the lower extremities noted. No clubbing. No cyanosis. SKIN: Good skin turgor. Well perfused. NEUROLOGIC: No focal or lateralizing signs. PSYCH: Sedated CLINICAL LABS: Reviewed. White blood cell count normal. ASSESSMENT: 1. Status post fall with transverse process vertebral fractures 2. Morbid obesity due to excess calories, BMI 36.4 3. Status post revision T10 to pelvis decompression fusion stabilization 4. Respiratory failure, vent dependent 5. Obstructive sleep apnea. PLAN: 1. Family is agreed to proceed with tracheostomy and PEG tube placement. 2. Continue current ICU care. Objective - Vital Signs Vital signs: Vital Signs Temp 98.4 F 06/20/24 04:00 Pulse 99 06/20/24 07:55 Resp 20 06/20/24 07:00 BP 124/83 06/20/24 07:00 Pulse Ox 99 06/20/24 07:00 FiO2 40 06/20/24 04:00 Intake & Output 06/19/24 06/20/24 06/20/24 18:59 06:59 18:59 Intake Total 3134.364 8849.753 60.456 Output Total 1435 1215 Balance -288.420 227.753 60.456 Weight 109.7 kg 108.6 kg Intake: IV 170 120 Ertapenem 1 gm In Sodium 50 Chloride 0.9% 50 ml @ 100 mls/hr IVPB DAILY [facility] Rx #:[id number] kvo 120 120 Intake, IV Titration 406.580 752.753 60.456 Amount Heparin Sod,Pork in 0.45% 233.586 486.858 NaCl 25,000 unit In 0.45 % NaCl 1 250ml.bag @ 8.65 UNITS/KG/HR 9.999 mls/hr IV .Q24H [facility] Rx#: [id number] propofoL 1,000 mg In 172.994 265.895 60.456 Empty Bag 1 bag @ 15 MCG/ KG/MIN 10.305 mls/hr IV . Q9H43M [facility] Rx#:[id number] Tube Feeding 480 480 Other 90 90 Output: Urine 1435 1215 Other: Voiding Method Indwelling Catheter Indwelling Catheter ABP, PAP, CO, CI - Last Documented Arterial Blood Pressure 106/58 - Labs CBC & Chem 7: 06/20/24 04:50 06/20/24 04:50 Labs: Abnormal Lab Results - Last 24 Hours (Table) 06/19/24 06/20/24 06/20/24 Range/Units 11:57 04:50 04:50 RBC 4.03 L (4.30-5.90) m/uL Hgb 11.2 L (13.0-17.5) gm/dL Hct 36.5 L (39.0-53.0) % MCHC 30.6 L (31.0-37.0) g/dL RDW 16.6 H (11.5-15.5) % Plt Count 674 H (150-450) k/uL APTT 84.6 H (22.0-30.0) sec ABG pH (7.35-7.45) ABG pO2 (83-108) mmHg ABG HCO3 (21-25) mmol/L ABG Total CO2 (19-24) mmol/L Creatinine (0.66-1.25) mg/dL Glucose (74-99) mg/dL POC Glucose (mg/dL) 120 H (70-110) mg/dL 06/20/24 06/20/24 06/20/24 Range/Units 04:50 05:10 05:34 RBC (4.30-5.90) m/uL Hgb (13.0-17.5) gm/dL Hct (39.0-53.0) % MCHC (31.0-37.0) g/dL RDW (11.5-15.5) % Plt Count (150-450) k/uL APTT (22.0-30.0) sec ABG pH 7.48 H (7.35-7.45) ABG pO2 73 L (83-108) mmHg ABG HCO3 32 H (21-25) mmol/L ABG Total CO2 33 H (19-24) mmol/L Creatinine 0.36 L (0.66-1.25) mg/dL Glucose 119 H (74-99) mg/dL POC Glucose (mg/dL) 128 H (70-110) mg/dL
--- NOTE | 2024-06-20 08:45 | P.PN ---
Subjective Progress Note Date: 06/18/24 06/18/2024: Patient is off sedation since 10 AM. Patient is squeezing left hand intermittently. Patient is currently on CPAP, tolerating it. Patient is not ready for extubation. If no remarkable improvement by Saturday, then patient will need tracheostomy and PEG placement. Patient's son was also present. He informs us that patient's hearing is normal. 06/17/2024: Patient was for a follow-up. Patient is laying in the bed, but much more alert and awake, following directions as per examination. Patient clearly not nodded his head "no no" for any headache. 06/16/2024: Patient was seen for a follow-up. Patient continues to be sedated with propofol 20 mcg/kg/min. Also heparin running for atrial fibrillation. Patient's vitals are stable with blood pressure 129/73. Patient more easily arousable. Please refer to examination below. 06/15/2024: Patient was initially seen by Dr. Lorenzo Lopez. Please refer to his note for details. 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 Patient has history of atrial fibrillation and his anticoagulation Xarelto was held due to recent cervical issues and likely resulted in stroke. Patient is currently on heparin drip and pending PEG and trach placement. Patient was seen for a follow-up. Discussed with patient's nurse and patient's ex- in detail. Patient had undergone lumbar spinal surgery on 05/19/2024. He returned back to the ER on 06/06/2024 after he had a fall and twisted his back but did not land on his back or land on his knees(as per ED notes). Patient mentioned that his pain has increased. Patient's ex- at this time however completely denies patient having any falls. Patient was seen by Dr. Jeffrey who felt the screws has come close. Patient was found to have fracture of the lumbar spine (acute) without cord injury. He had lumbosacral spondylosis with radiculopathy and weakness of both lower extremities which was acute. Patient underwent open treatment with reduction L1 2 and L3 fractures. The lesion T10 pelvic posterior lateral instrumented fusion. Segmental instrumentation T10 to pelvis. Removal of hardware L2 and L3. Cement augmentation T9, T10, L1, L2 and L3 screws. T8 vertebroplasty to prevent P.J. K. Postoperatively it was felt patient was not moving his right side of the body. He underwent CT head on 06/10/2024 which revealed findings of acute/subacute CVA involving the left frontoparietal region. CTA of head and neck revealed no significant diameter reduction took on for the patient's symptoms. No large vessel occlusion noted. Patient has remained intubated. Currently on propofol 20 g per program per minute. Patient has just received oxycodone. Per nursing report when the sedation is decreased, he appears to be "mad". He does move the left arm and th e left leg, but not right side of the body. He moves right leg very little but not the right arm. Some of the other workup during this hospital visit consisted of: Lipid panel is triglyceride 68, cholesterol is 56, LDL is 18 and HDL is 23 Hemoglobin A1c 6.6. The echo on 06/08/2024 is reported as ejection fraction of [address]%. [address] head is reported as finding of acute/subacute CVA involving the left frontal parietal region. I personally reviewed CT and agree with the findings. CTA head and neck is read as no significant diameter reduction to account for the patient's symptoms. Area of hypoattenuation as described on the prior CT brain left frontal parietal region compatible with a finding of acute/subacute CVA. Repeat CT head 06/12/2024: Ongoing evolution of acute to subacute infarct over latral left frontal and parietal region with greater degree of hypodensity. Similar sulcal effacement. Minimal righward midline shift of 4mm vs 3mm measure on 06/10/24. No hemorrhagic transformation. Wound culture is positive for ESBL E. coli. Limited 2D echo was reported as mild reduced left ventricle systolic function left atrial enlargement. Most recent repeat CT of the head on 06/14/2024 is reported as left MCA territory evolving acute/subacute CVA. No evidence for hemorrhagic conversion. I personally reviewed the CT and I agree with the report. Objective - Vital Signs Vital signs: Vital Signs Temp 98.5 F 06/19/24 12:00 Pulse 78 06/19/24 15:32 Resp 20 06/19/24 14:00 BP 96/70 06/19/24 14:00 Pulse Ox 97 06/19/24 14:00 FiO2 40 06/19/24 14:59 Intake & Output 06/18/24 06/19/24 06/19/24 18:59 06:59 18:59 Intake Total 8700.474 7966.364 730.261 Output Total 0463 732 7037 Balance -93.008 4092.364 -294.739 Weight 109.7 kg 109.7 kg Intake: IV 170 130 110 Ertapenem 1 gm In Sodium 50 50 Chloride 0.9% 50 ml @ 100 mls/hr IVPB DAILY [facility] Rx #:[id number] kvo 120 130 60 Intake, IV Titration 296.992 502.364 320.261 Amount Heparin Sod,Pork in 0.45% 192.699 218.821 233.586 NaCl 25,000 unit In 0.45 % NaCl 1 250ml.bag @ 8.65 UNITS/KG/HR 9.999 mls/hr IV .Q24H [facility] Rx#: [id number] propofoL 1,000 mg In 104.293 283.543 86.675 Empty Bag 1 bag @ 15 MCG/ KG/MIN 10.305 mls/hr IV . Q9H43M [facility] Rx#:[id number] Tube Feeding 480 4360 240 Other 90 60 60 Output: Urine 1206 923 6967 Other: Voiding Method Indwelling Catheter Indwelling Catheter Indwelling Catheter ABP, PAP, CO, CI - Last Documented Arterial Blood Pressure 106/58 - Exam Patient is intubated, off sedation and this time. Patient is slightly diaphoretic. Patient appears comfortable at this time. He is today very alert and awake. He is making eye contact, tracking, following directions. Patient moved his left arm and left leg actively on command. He also bring his right arm fpc spontaneously. He is moving his right leg slightly as well. Pupils are equal, round and reacting. Muscle examination as above. Other testing could not be performed. Patient has Babinski on the right side, but downgoing on the left. - Labs CBC & Chem 7: 06/20/24 04:50 06/20/24 04:50 Labs: Abnormal Lab Results - Last 24 Hours (Table) 06/18/24 06/18/24 06/19/24 Range/Units 18:02 23:03 04:15 RBC (4.30-5.90) m/uL Hgb (13.0-17.5) gm/dL Hct (39.0-53.0) % MCHC (31.0-37.0) g/dL RDW (11.5-15.5) % Plt Count (150-450) k/uL Lymphocytes # (1.0-4.8) k/uL APTT (22.0-30.0) sec ABG pH 7.47 H (7.35-7.45) ABG pO2 74 L (83-108) mmHg ABG HCO3 33 H (21-25) mmol/L ABG Total CO2 34 H (19-24) mmol/L Sodium (137-145) mmol/L Creatinine (0.66-1.25) mg/dL Glucose (74-99) mg/dL POC Glucose (mg/dL) 130 H 114 H (70-110) mg/dL ALT (4-49) U/L Alkaline Phosphatase (38-126) U/L Total Protein (6.3-8.2) g/dL Albumin (3.5-5.0) g/dL 06/19/24 06/19/24 06/19/24 Range/Units 05:35 05:35 05:35 RBC 3.96 L (4.30-5.90) m/uL Hgb 10.9 L (13.0-17.5) gm/dL Hct 35.8 L (39.0-53.0) % MCHC 30.5 L (31.0-37.0) g/dL RDW 16.5 H (11.5-15.5) % Plt Count 590 H (150-450) k/uL Lymphocytes # 0.9 L (1.0-4.8) k/uL APTT 68.2 H (22.0-30.0) sec ABG pH (7.35-7.45) ABG pO2 (83-108) mmHg ABG HCO3 (21-25) mmol/L ABG Total CO2 (19-24) mmol/L Sodium 135 L (137-145) mmol/L Creatinine 0.28 L (0.66-1.25) mg/dL Glucose 101 H (74-99) mg/dL POC Glucose (mg/dL) (70-110) mg/dL ALT 52 H (4-49) U/L Alkaline Phosphatase 144 H (38-126) U/L Total Protein 5.1 L (6.3-8.2) g/dL Albumin 2.8 L (3.5-5.0) g/dL 06/19/24 06/19/24 Range/Units 06:31 11:57 RBC (4.30-5.90) m/uL Hgb (13.0-17.5) gm/dL Hct (39.0-53.0) % MCHC (31.0-37.0) g/dL RDW (11.5-15.5) % Plt Count (150-450) k/uL Lymphocytes # (1.0-4.8) k/uL APTT (22.0-30.0) sec ABG pH (7.35-7.45) ABG pO2 (83-108) mmHg ABG HCO3 (21-25) mmol/L ABG Total CO2 (19-24) mmol/L Sodium (137-145) mmol/L Creatinine (0.66-1.25) mg/dL Glucose (74-99) mg/dL POC Glucose (mg/dL) 113 H 120 H (70-110) mg/dL ALT (4-49) U/L Alkaline Phosphatase (38-126) U/L Total Protein (6.3-8.2) g/dL Albumin (3.5-5.0) g/dL Assessment and Plan Assessment: 58-year-old gentleman with history of atrial fibrillation status post cardioversion on Xarelto, diabetes mellitus, heart failure, cervical myelopathy, back pain and had recent L2 to pelvis decompression and fusion of bilateral open SI joint on 05/19/2024 who had a recent fall with back pain. Patient had L2-L3 fracture and has hardware failure of the thoracic spine to pelvis. On 06/09/2024, patient had L1-L2 and L3 revision T10 to pelvis posterior lateral instrumented fusion with hardware removal. His Xarelto was held 48 hours and it seems last dose was on 06/08/2024 per the nurse. On 06/10/2024, when the sedation was held the patient was not moving the right side and CT of the head shows acute to subacute over the left frontal parietal region. Acute to subacute stroke (seems more subacute) over the left frontal parietal region Altered mental status due to above, sepsis (Wound culture is positive for ESBL E. coli.) Recent fall with back pain and it seems that the patient has L2-L3 Fracture s/p revision T10 to Pelvis posterior lateral instrument fusion with hardware removal Intubated on a ventilator History of atrial fibrillation status post cardioversion and was on Xarelto and the Xarelto was held for the last 48 hours but currently on heparin drip History of cervical myelopathy status post C2-T2 decompression and fusion Recent recent L2 to pelvis decompression and fusion of bilateral open SI joint on 05/19/2024 History of Systolic Heart failure and recent 2D echo on 06/08/24 has EF 25-30% Diabetes mellitus and HbA1c: 6.6 Chronic hypertension History of hyperlipidemia History of obstructive sleep apnea Former tobacco use Of Plan: Patient is on heparin drip for the A-fib. From neurology perspective the patient can resume Xarelto. Dr. Lopez has spoken with the ICU nurse and she stated that per the ICU attending, remain on heparin drip for now, until he undergoes a trach and PEG. Is on Lipitor 40mg qhs which is sufficient for secondary stroke prophylaxis. Patient's mentation has further improved, even as compared to yesterday. Patient is fully alert and awake, making eye contact, following directions as per examination. He is also showing some movement in the right arm. Patient is not fulfilling extubation criteria, therefore continues to be intubated. Continue neurochecks Cardiac monitoring PT OT are consulted. Right-sided weakness is improving. Cardiology team is on board Will defer the rest of the medical management to primary and other specialists DVT prophylaxis: On heparin drip. Keep the PTT between 45 and 60, as per Dr. Lopez recommendation. Condition is very guarded. Discussed with patient's nurse in detail. Family wants to wait until Saturday before considering PEG and tracheostomy. Discussed with patient's son and nursing staff in detail.
[2024-06-20] MEDS: LACTATED RINGERS 1,000 ML IV SCH (09:13)
--- NOTE | 2024-06-20 10:11 | P.PN ---
Subjective Progress Note Date: 06/19/24 06/19/2024: Patient was seen for a follow-up. Patient is on propofol 25 g/kg/min, also on heparin IV. Patient is sedated today. He is diaphoretic. Yesterday he was on CPAP from 10 AM to 6 PM. Today he was placed on CPAP for half an hour but then he started tachycardic, tachypneic therefore back on full ventilation. He is not ready for extubation from a pulmonary standpoint. Also is somewhat weak. 06/18/2024: Patient is off sedation since 10 AM. Patient is squeezing left hand intermittently. Patient is currently on CPAP, tolerating it. Patient is not ready for extubation. If no remarkable improvement by Saturday, then patient will need tracheostomy and PEG placement. Patient's son was also present. He informs us that patient's hearing is normal. 06/17/2024: Patient was for a follow-up. Patient is laying in the bed, but much more alert and awake, following directions as per examination. Patient clearly not nodded his head "no no" for any headache. 06/16/2024: Patient was seen for a follow-up. Patient continues to be sedated with propofol 20 mcg/kg/min. Also heparin running for atrial fibrillation. Luis Fernando guerra's vitals are stable with blood pressure 129/73. Patient more easily arousable. Please refer to examination below. 06/15/2024: Patient was initially seen by Dr. Lorenzo Lopez. Please refer to his note for details. 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 Patient has history of atrial fibrillation and his anticoagulation Xarelto was held due to recent cervical issues and likely resulted in stroke. Patient is currently on heparin drip and pending PEG and trach placement. Patient was seen for a follow-up. Discussed with patient's nurse and patient's ex- in detail. Patient had undergone lumbar spinal surgery on 05/19/2024. He returned back to the ER on 06/06/2024 after he had a fall and twisted his back but did not land on his back or land on his knees(as per ED notes). Patient mentioned that his pain has increased. Patient's ex- at this time however completely denies patient having any falls. Patient was seen by Dr. Jeffrey who felt the screws has come close. Patient was found to have fr acture of the lumbar spine (acute) without cord injury. He had lumbosacral spondylosis with radiculopathy and weakness of both lower extremities which was acute. Patient underwent open treatment with reduction L1 2 and L3 fractures. The lesion T10 pelvic posterior lateral instrumented fusion. Segmental instrumentation T10 to pelvis. Removal of hardware L2 and L3. Cement augmentation T9, T10, L1, L2 and L3 screws. T8 vertebroplasty to prevent P.[place]. Postoperatively it was felt patient was not moving his right side of the body. He underwent CT head on 06/10/2024 which revealed findings of acute/subacute CVA involving the left frontoparietal region. CTA of head and neck revealed no s ignificant diameter reduction took on for the patient's symptoms. No large vessel occlusion noted. Patient has remained intubated. Currently on propofol 20 g per program per minute. Patient has just received oxycodone. Per nursing report when the sedation is decreased, he appears to be "mad". He does move the left arm and the left leg, but not right side of the body. He moves right leg very little but not the right arm. Some of the other workup during this hospital visit consisted of: Lipid panel is triglyceride 68, cholesterol is 56, LDL is 18 and HDL is 23 Hemoglobin A1c 6.6. The echo on 06/08/2024 is reported as ejection fraction of 25 [address]%. [address] head is reported as finding of acute/subacute CVA involving the left frontal parietal region. I personally reviewed CT and agree with the findings. CTA head and neck is read as no significant diameter reduction to account for the patient's symptoms. Area of hypoattenuation as described on the prior CT br ain left frontal parietal region compatible with a finding of acute/subacute CVA. Repeat CT head 06/12/2024: Ongoing evolution of acute to subacute infarct over latral left frontal and parietal region with greater degree of hypodensity. Similar sulcal effacement. Minimal righward midline shift of 4mm vs 3mm measure on 06/10/24. No hemorrhagic transformation. Wound culture is positive for ESBL E. coli. Limited 2D echo was reported as mild reduced left ventricle systolic function left atrial enlargement. Most recent repeat CT of the head on 06/14/2024 is reported as left MCA territory evolving acute/subacute CVA. No evidence for hemorrhagic conversion. I personally reviewed the CT and I agree with the report. Objective - Vital Signs Vital signs: Vital Signs Temp 98.5 F 06/19/24 12:00 Pulse 78 06/19/24 15:32 Resp 20 06/19/24 14:00 BP 96/70 06/19/24 14:00 Pulse Ox 97 06/19/24 14:00 FiO2 40 06/19/24 14:59 Intake & Output 06/18/24 06/19/24 06/19/24 18:59 06:59 18:59 Intake Total 7083.186 2036.364 730.261 Output Total 9827 246 8386 Balance -93.008 4092.364 -294.739 Weight 109.7 kg 109.7 kg Intake: IV 170 130 110 Ertapenem 1 gm In Sodium 50 50 Chloride 0.9% 50 ml @ 100 mls/hr IVPB DAILY [facility] Rx #:[id number] kvo 120 130 60 Intake, IV Titration 296.992 502.364 320.261 Amount Heparin Sod,Pork in 0.45% 192.699 218.821 233.586 NaCl 25,000 unit In 0.45 % NaCl 1 250ml.bag @ 8.65 UNITS/KG/HR 9.999 mls/hr IV .Q24H [facility] Rx#: [id number] propofoL 1,000 mg In 104.293 283.543 86.675 Empty Bag 1 bag @ 15 MCG/ KG/MIN 10.305 mls/hr IV . Q9H43M [facility] Rx#:[id number] Tube Feeding 480 4360 240 Other 90 60 60 Output: Urine 2560 141 2683 Other: Voiding Method Indwelling Catheter Indwelling Catheter Indwelling Catheter ABP, PAP, CO, CI - Last Documented Arterial Blood Pressure 106/58 - Exam Patient is intubated, on sedation with propofol 25 mcg/kg per minute. Patient is slightly diaphoretic. Patient appears comfortable at this time. Patient is sedated today. He is less responding as compared to yesterday. Pupils are equal, round and reacting. Muscle examination was inconsistent. Per nursing staff as well, sometimes he is more cooperating other times he does not want to cooperate with any examination. - Labs CBC & Chem 7: 06/20/24 04:50 06/20/24 04:50 Labs: Abnormal Lab Results - Last 24 Hours (Table) 06/18/24 06/18/24 06/19/24 Range/Units 18:02 23:03 04:15 RBC (4.30-5.90) m/uL Hgb (13.0-17.5) gm/dL Hct (39.0-53.0) % MCHC (31.0-37.0) g/dL RDW (11.5-15.5) % Plt Count (150-450) k/uL Lymphocytes # (1.0-4.8) k/uL APTT (22.0-30.0) sec ABG pH 7.47 H (7.35-7.45) ABG pO2 74 L (83-108) mmHg ABG HCO3 33 H (21-25) mmol/L ABG Total CO2 34 H (19-24) mmol/L Sodium (137-145) mmol/L Creatinine (0.66-1.25) mg/dL Glucose (74-99) mg/dL POC Glucose (mg/dL) 130 H 114 H (70-110) mg/dL ALT (4-49) U/L Alkaline Phosphatase (38-126) U/L Total Protein (6.3-8.2) g/dL Albumin (3.5-5.0) g/dL 06/19/24 06/19/24 06/19/24 Range/Units 05:35 05:35 05:35 RBC 3.96 L (4.30-5.90) m/uL Hgb 10.9 L (13.0-17.5) gm/dL Hct 35.8 L (39.0-53.0) % MCHC 30.5 L (31.0-37.0) g/dL RDW 16.5 H (11.5-15.5) % Plt Count 590 H (150-450) k/uL Lymphocytes # 0.9 L (1.0-4.8) k/uL APTT 68.2 H (22.0-30.0) sec ABG pH (7.35-7.45) ABG pO2 (83-108) mmHg ABG HCO3 (21-25) mmol/L ABG Total CO2 (19-24) mmol/L Sodium 135 L (137-145) mmol/L Creatinine 0.28 L (0.66-1.25) mg/dL Glucose 101 H (74-99) mg/dL POC Glucose (mg/dL) (70-110) mg/dL ALT 52 H (4-49) U/L Alkaline Phosphatase 144 H (38-126) U/L Total Protein 5.1 L (6.3-8.2) g/dL Albumin 2.8 L (3.5-5.0) g/dL 06/19/24 06/19/24 Range/Units 06:31 11:57 RBC (4.30-5.90) m/uL Hgb (13.0-17.5) gm/dL Hct (39.0-53.0) % MCHC (31.0-37.0) g/dL RDW (11.5-15.5) % Plt Count (150-450) k/uL Lymphocytes # (1.0-4.8) k/uL APTT (22.0-30.0) sec ABG pH (7.35-7.45) ABG pO2 (83-108) mmHg ABG HCO3 (21-25) mmol/L ABG Total CO2 (19-24) mmol/L Sodium (137-145) mmol/L Creatinine (0.66-1.25) mg/dL Glucose (74-99) mg/dL POC Glucose (mg/dL) 113 H 120 H (70-110) mg/dL ALT (4-49) U/L Alkaline Phosphatase (38-126) U/L Total Protein (6.3-8.2) g/dL Albumin (3.5-5.0) g/dL Assessment and Plan Assessment: 58-year-old gentleman with history of atrial fibrillation status post cardioversion on Xarelto, diabetes mellitus, heart failure, cervical myelopathy, back pain and had recent L2 to pelvis decompression and fusion of bilateral open SI joint on 05/19/2024 who had a recent fall with back pain. Patient had L2-L3 fracture and has hardware failure of the thoracic spine to pelvis. On 06/09/2024, patient had L1-L2 and L3 revision T10 to pelvis posterior lateral instrumented fusion with hardware removal. His Xarelto was held 48 hours and it seems last dose was on 06/08/2024 per the nurse. On 06/10/2024, when the sedation was held the patient was not moving the right side and CT of the head shows acute to subacute over the left frontal parietal region. Acute to subacute stroke (seems more subacute) over the left frontal parietal region Altered mental status due to above, sepsis (Wound culture is positive for ESBL E. coli.) Recent fall with back pain and it seems that the patient has L2-L3 Fracture s/p revision T10 to Pelvis posterior lateral instrument fusion with hardware removal Intubated on a ventilator History of atrial fibrillation status post cardioversion and was on Xarelto and the Xarelto was held for the last 48 hours but currently on heparin drip History of cervical myelopathy status post C2-T2 decompression and fusion Recent recent L2 to pelvis decompression and fusion of bilateral open SI joint on 05/19/2024 History of Systolic Heart failure and recent 2D echo on 06/08/24 has EF 25-30% Diabetes mellitus and HbA1c: 6.6 Chronic hypertension History of hyperlipidemia History of obstructive sleep apnea Former tobacco use Of Plan: Patient is on heparin drip for the A-fib. From neurology perspective the patient can resume Xarelto. Dr. Lopez has spoken with the ICU nurse and she stated that per the ICU attending, remain on heparin drip for now, until he undergoes a trach and PEG. Is on Lipitor 40mg qhs which is sufficient for secondary stroke prophylaxis. Patient's mentation is improving. Strength is also improving. Patient is not fulfilling extubation criteria, therefore continues to be intubated. Continue neurochecks Cardiac monitoring PT OT are consulted. Right-sided weakness is improving. Cardiology team is on board Will defer the rest of the medical management to primary and other specialists DVT prophylaxis: On heparin drip. Keep the PTT between 45 and 60, as per Dr. Lopez recommendation. Current PTT 68.2. Condition is very guarded. Discussed with patient's nurse in detail. Family wants to wait until Saturday before considering PEG and tracheostomy. Discussed with nursing staff in detail.
[2024-06-20 12:28] LABS: Glucose,Whole Blood 116 mg/dL (70-110)
--- NOTE | 2024-06-20 13:44 | P.PN ---
Subjective Progress Note Date: 06/20/24 Principal diagnosis: Reason for follow-up is lumbar surgical site infection ESBL E. coli Patient is a 58-year-old male with a past medical history significant for diabetes mellitus hypertension COPD atrial fibrillation sleep apnea initially presented to hospital with back pain has been diagnosed with L1-L3 fracture status post extensive surgery and surgical cultures came back positive with ESBL E. coli prompted this consultation. On today's evaluation that is 06/20/2024,the patient continues to be afebrile the patient remains to be debated on the right FiO2 is currently stable at 40% no significant purulent secretion through the ET sedation has been cut back ho wever the patient is not making any purposeful responses per the nursing staff tolerating his tube feeds no diarrhea reported. The patient white count is 8.4, creatinine 0.36 blood culture has been negative Objective - Vital Signs Vital signs: Vital Signs Temp 99.1 F 06/20/24 12:00 Pulse 85 06/20/24 12:07 Resp 22 06/20/24 12:00 BP 140/93 06/20/24 12:00 Pulse Ox 99 06/20/24 12:00 FiO2 40 06/20/24 12:00 Intake & Output 06/19/24 06/20/24 06/20/24 18:59 06:59 18:59 Intake Total 3380.576 3698.753 471.104 Output Total 1435 1215 1015 Balance -288.420 227.753 -543.896 Weight 109.7 kg 108.6 kg Intake: IV 170 120 95 Ertapenem 1 gm In Sodium 50 50 Chloride 0.9% 50 ml @ 100 mls/hr IVPB DAILY [facility] Rx #:[id number] kvo 120 120 45 Intake, IV Titration 406.580 752.753 116.104 Amount Heparin Sod,Pork in 0.45% 233.586 486.858 NaCl 25,000 unit In 0.45 % NaCl 1 250ml.bag @ 8.65 UNITS/KG/HR 9.999 mls/hr IV .Q24H [facility] Rx#: [id number] propofoL 1,000 mg In 172.994 265.895 116.104 Empty Bag 1 bag @ 15 MCG/ KG/MIN 10.305 mls/hr IV . Q9H43M [facility] Rx#:[id number] Tube Feeding 480 480 200 Other 90 90 60 Output: Urine 1435 1215 1015 Other: Voiding Method Indwelling Catheter Indwelling Catheter Indwelling Catheter ABP, PAP, CO, CI - Last Documented Arterial Blood Pressure 106/58 - Exam GENERAL DESCRIPTION: Middle-age male intubated on the vent RESPIRATORY SYSTEM: Unlabored breathing , decreased breath sounds at bases HEART: S1 S2 regular rate and rhythm , ABDOMEN: Soft , no tenderness EXTREMITIES: No edema feet - Labs CBC & Chem 7: 06/20/24 04:50 06/20/24 04:50 Labs: Abnormal Lab Results - Last 24 Hours (Table) 06/20/24 06/20/24 06/20/24 Range/Units 04:50 04:50 04:50 RBC 4.03 L (4.30-5.90) m/uL Hgb 11.2 L (13.0-17.5) gm/dL Hct 36.5 L (39.0-53.0) % MCHC 30.6 L (31.0-37.0) g/dL RDW 16.6 H (11.5-15.5) % Plt Count 674 H (150-450) k/uL APTT 84.6 H (22.0-30.0) sec ABG pH (7.35-7.45) ABG pO2 (83-108) mmHg ABG HCO3 (21-25) mmol/L ABG Total CO2 (19-24) mmol/L Creatinine 0.36 L (0.66-1.25) mg/dL Glucose 119 H (74-99) mg/dL POC Glucose (mg/dL) (70-110) mg/dL 06/20/24 06/20/24 06/20/24 Range/Units 05:10 05:34 12:27 RBC (4.30-5.90) m/uL Hgb (13.0-17.5) gm/dL Hct (39.0-53.0) % MCHC (31.0-37.0) g/dL RDW (11.5-15.5) % Plt Count (150-450) k/uL APTT (22.0-30.0) sec ABG pH 7.48 H (7.35-7.45) ABG pO2 73 L (83-108) mmHg ABG HCO3 32 H (21-25) mmol/L ABG Total CO2 33 H (19-24) mmol/L Creatinine (0.66-1.25) mg/dL Glucose (74-99) mg/dL POC Glucose (mg/dL) 128 H 116 H (70-110) mg/dL Assessment and Plan (1) Surgical site infection Current Visit: Yes Status: Acute Code(s): T81.49XA - INFECTION FOLLOWING A PROCEDURE, OTHER SURGICAL SITE, INIT SNOMED Code(s): 11518456 (2) Infection due to ESBL-producing Escherichia coli Current Visit: Yes Status: Acute Code(s): A49.8 - OTHER BACTERIAL INFECTIONS OF UNSPECIFIED SITE; Z16.12 - EXTENDED SPECTRUM BETA LACTAMASE (ESBL) RESISTANCE SNOMED Code(s): 422255449 Plan: 1patient presented to the hospital with back pain more than a week ago from initial evaluation in this patient who did have extensive lumbosacral spine surgery now has been taken back to the OR noticed to have hardware failure fracture of the vertebra s/p redo surgery and culture which has been finalized as ESBL E. coli 2-patient remains to be afebrile white count has been normal blood sputum culture has been negative 3patient likely have deeper infection as the patient did require extensive surgery down to the bone hence we will recommending at least 6 weeks of antibiotic PICC line has been ordered by ICU team care discussed with the nursing staff Dictation was produced using [employer] dictation software. please excuse any gram matical, word or spelling errors. Time with Patient: Less than 30
[2024-06-20 18:10] LABS: Glucose,Whole Blood 101 mg/dL (70-110)
--- NOTE | 2024-06-20 22:16 | P.PN ---
Subjective Patient seen and evaluated at bedside. No overnight issues. No new complaints per nursing. Objective - Vital Signs Vital signs: Vital Signs Temp 98.3 F 06/20/24 20:00 Pulse 75 06/20/24 21:00 Resp 20 06/20/24 21:00 BP 114/80 06/20/24 21:00 Pulse Ox 98 06/20/24 21:00 FiO2 40 06/20/24 20:16 Intake & Output 06/20/24 06/20/24 06/21/24 06:59 18:59 06:59 Intake Total 8806.973 4065.196 230 Output Total 1215 1715 355 Balance 227.753 -693.804 -125 Weight 108.6 kg Intake: IV 120 155 40 Ertapenem 1 gm In Sodium 50 Chloride 0.9% 50 ml @ 100 mls/hr IVPB DAILY [facility] Rx #:[id number] kvo 120 105 40 Intake, IV Titration 752.753 336.196 Amount Heparin Sod,Pork in 0.45% 486.858 220.092 NaCl 25,000 unit In 0.45 % NaCl 1 250ml.bag @ 8.65 UNITS/KG/HR 9.999 mls/hr IV .Q24H [facility] Rx#: [id number] propofoL 1,000 mg In 265.895 116.104 Empty Bag 1 bag @ 15 MCG/ KG/MIN 10.305 mls/hr IV . Q9H43M [facility] Rx#:[id number] Tube Feeding 480 440 160 Other 90 90 30 Output: Urine 1215 1715 355 Other: Voiding Method Indwelling Catheter Indwelling Catheter Indwelling Catheter ABP, PAP, CO, CI - Last Documented Arterial Blood Pressure 106/58 - Exam gen: nad cv: rrr pul: intubated abd: soft, distended, not peritoneal - Labs CBC & Chem 7: 06/20/24 04:50 06/20/24 12:59 Labs: Abnormal Lab Results - Last 24 Hours (Table) 06/20/24 06/20/24 06/20/24 Range/Units 04:50 04:50 04:50 RBC 4.03 L (4.30-5.90) m/uL Hgb 11.2 L (13.0-17.5) gm/dL Hct 36.5 L (39.0-53.0) % MCHC 30.6 L (31.0-37.0) g/dL RDW 16.6 H (11.5-15.5) % Plt Count 674 H (150-450) k/uL APTT 84.6 H (22.0-30.0) sec ABG pH (7.35-7.45) ABG pO2 (83-108) mmHg ABG HCO3 (21-25) mmol/L ABG Total CO2 (19-24) mmol/L Creatinine 0.36 L (0.66-1.25) mg/dL Glucose 119 H (74-99) mg/dL POC Glucose (mg/dL) (70-110) mg/dL 06/20/24 06/20/24 06/20/24 Range/Units 05:10 05:34 12:27 RBC (4.30-5.90) m/uL Hgb (13.0-17.5) gm/dL Hct (39.0-53.0) % MCHC (31.0-37.0) g/dL RDW (11.5-15.5) % Plt Count (150-450) k/uL APTT (22.0-30.0) sec ABG pH 7.48 H (7.35-7.45) ABG pO2 73 L (83-108) mmHg ABG HCO3 32 H (21-25) mmol/L ABG Total CO2 33 H (19-24) mmol/L Creatinine (0.66-1.25) mg/dL Glucose (74-99) mg/dL POC Glucose (mg/dL) 128 H 116 H (70-110) mg/dL 06/20/24 Range/Units 12:59 RBC (4.30-5.90) m/uL Hgb (13.0-17.5) gm/dL Hct (39.0-53.0) % MCHC (31.0-37.0) g/dL RDW (11.5-15.5) % Plt Count (150-450) k/uL APTT 65.6 H (22.0-30.0) sec ABG pH (7.35-7.45) ABG pO2 (83-108) mmHg ABG HCO3 (21-25) mmol/L ABG Total CO2 (19-24) mmol/L Creatinine (0.66-1.25) mg/dL Glucose (74-99) mg/dL POC Glucose (mg/dL) (70-110) mg/dL Assessment and Plan Assessment: ASSESSMENT: 1. Status post fall with transverse process vertebral fractures 2. Morbid obesity due to excess calories, BMI 36.4 3. Status post revision T10 to pelvis decompression fusion stabilization 4. Respiratory failure, vent dependent 5. Obstructive sleep apnea. PLAN: 1. Family is agreed to proceed with tracheostomy and PEG tube placement. 2. Continue current ICU care. Time with Patient: Greater than 30
[2024-06-20 23:21] LABS: Glucose,Whole Blood 106 mg/dL (70-110)
--- NOTE | 2024-06-21 01:15 | PN ---
PROGRESS NOTE SUBJECTIVE: No troubles overnight. OBJECTIVE: VITAL SIGNS: Temperature 97.3, pulse 75, respiratory rate 10 to 12, blood pressure 114/80, pulse ox 98. GENERAL: No acute distress. CARDIOVASCULAR: S1, S2. LUNGS: Transmitted upper sounds. Hemoglobin is 11.2. ABG is reviewed. Status post transverse process vertebral fractures, morbid obesity, COPD, diastolic heart failure, respiratory failure, vent dependent; sleep apnea. Trach and PEG on Saturday. Continue current ICU care. IV antibiotics per Dr. Camejo have been ordered. Wait for PEG tube on Saturday. MMODL / IJN: [id number] /
[2024-06-21 05:33] LABS: ABG Base Excess 7.3 mmol/L; ABG HCO3 32 mmol/L (21-25); ABG PCO2 44 mmHg (35-45); ABG PH 7.47 (7.35-7.45); ABG PO2 94 mmHg (83-108); ABG TCO2 33 mmol/L (19-24); Allen Test Performed? Yes
[2024-06-21 05:42] LABS: Anisocytosis Slight; HCT 37.6 % (39.0-53.0); HGB 11.5 gm/dL (13.0-17.5); Hypochromasia Marked; MCH 27.5 pg (25.0-35.0); MCHC 30.7 g/dL (31.0-37.0); MCV 89.6 fL (80.0-100.0); Mean Platelet Volume 6.9; Platelet Count 689 k/uL (150-450); Poikilocytosis Slight; RBC 4.19 m/uL (4.30-5.90); RDW 16.6 % (11.5-15.5); WBC 7.3 k/uL (3.8-10.6)
[2024-06-21 06:06] LABS: African American GFR (CKD) >90 (>60 ml/min/1.73 sqM); Anion Gap 6 mmol/L; Blood Urea Nitrogen 17 mg/dL (9-20); Calcium 8.5 mg/dL (8.4-10.2); Carbon Dioxide 28 mmol/L (22-30); Chloride 105 mmol/L (98-107); Glucose 119 mg/dL (74-99); Non-African American GFR(CKD) >90 (>60 ml/min/1.73 sqM); Potassium 3.9 mmol/L (3.5-5.1); Sodium 139 mmol/L (137-145)
[2024-06-21 06:30] LABS: Glucose,Whole Blood 116 mg/dL (70-110)
--- NOTE | 2024-06-21 06:45 | XR ---
EXAMINATION TYPE: XR chest 1V portable DATE OF EXAM: 06/21/2024 COMPARISON: 06/20/2024 HISTORY: Pulmonary congestion TECHNIQUE: Single frontal view of the chest is obtained. FINDINGS: ET tube is 4.8 cm above the shashank. There is an NG tube within the stomach. There is no change in the appearance of the widened mediastinum or in the diffuse pulmonary vascular congestion in the left lung. There is no pneumothorax. IMPRESSION: 1. ET tube 4.8cm above the shashank. 2. Acute cardiopulmonary disease with no interval change.
[2024-06-21 06:48] LABS: Glucose,Whole Blood 110 mg/dL (70-110)
[2024-06-21] MEDS: POTASSIUM BICARBONATE/CIT AC 20 MEQ TABLET.EFF NG-TUBE SCH (06:51)
--- NOTE | 2024-06-21 10:44 | P.PN ---
Subjective Progress Note Date: 06/21/24 Principal diagnosis: CVA. Patient is a 58-year-old white male with past medical history significant for obstructive sleep apnea with home CPAP, COPD, ex tobacco smoker, marijuana smoker, atrial fibrillation with previous cardioversion and anticoagulated on Xarelto, diabetes mellitus, hypertension, heart failure, and previous spinal surgeries. His primary care provider is Dr. Deuce Brito. He is currently intubated to the mechanical ventilator, unable to provide any information for HPI. Of note, patient recently underwent an L2 to pelvis posterior lateral decompression and fusion on 05/19/2024 at [facility]. During this admission, he initially was recovered in the intensive care unit. Technically, difficult to extubate, and did require BiPAP support immediately after extubation. He was eventually discharged home on 05/26/2024. Patient returned the emergency department on 06/06/2024. On review of the ER documentation, he had a fall while at home. CT of the lumbar spine demonstrated new compression fracture of L2 vertebral body with compression of the vertebral body down to the pedicle screws bilaterally and loosening the left pedicle screw. New left pedicle/transverse process of L2 and L3 fractures around the hardware with mild displacement. Fractures of the right transverse process of L2 and L3. Likely postsurgical subcutaneous gas in the surgical bed. Patient underwent revision thoracic T10 to pelvis decompression fusion yesterday. Intraoperatively, patient had an EBL of 1 L. He has received a total of 5 units of PRBCs, 1 FFP, and 1 pack platelets. He was sent to the intensive care unit postoperatively. He remains on the mechanical ventilator. Chest x-ray shows the endotracheal tube approximately 4.3 cm above the shashank. There is cardiomegaly with pulmonary vascular congestion suggested. No pleural effusions, pneumothoraces, focal consolidations. Initial ABG had a PaO2 of 80, pCO2 of 61, pH of 7.27. This was done on original ventilator settings of assist-control, respiratory rate 14, tidal volume 500, FiO2 1 9%, and PEEP of 5. My supervising physician is already increased the patient's respiratory rate to 20. He is currently synchronous with mechanical ventilator. There is a moderate amount of clear to white endotracheal secretions. Peak pressures 23. He is sedated with propofol which is currently infusing at 50 mcg/kg/min. He is fairly unarousable. Will withdraw to painful stimuli in all 4 extremities. There is also norepinephrine infusing at 0.02 mcg/kg/min. There is a MAP goal of 80 mmHg to support [employer] perfusion. LR is infusing at 10 MLS per hour. There is a Hemovac with a total of 220 serosanguineous output since surgery. We are awaiting postoperative labs. Preoperatively, CBC: WBC count 9.4, hemoglobin 9.6, hematocrit 32.5, platelets 516. Preoperative CMP: Sodium 137, potassium 4.1, chloride 104, serum bicarb 27, BUN 18, creatinine 0.61, glucose 143. LFTs unremarkable. Receiving prophylactic cefazolin. Note that preoperatively, patient did have a cardiac evaluation. Repeat echocardiogram shows a severely reduced left ventricular ejection fraction of 25 to 30% as well as mild mitral and tricuspid regurgitation. Heart rhythm is atrial fibrillation with controlled ventricular response. Normally anticoagulated on Xarelto, however, this is on hold for surgery. Progress note dated June 11, 2024. 58-year-old male recently had additional back surgery, including a T10 to pelvic decompression and fusion. Please see my consultation from yesterday. Today is postop day #2. The patient was brought back to the ICU on the ventilator. Will be woke him up for the daily interruption of sedation yesterday, it was noted that he was not moving his right side. He was sent for an immediate CT scan without contrast. It showed a subacute left frontoparietal CVA. It was isch emic in nature. He remains on mechanical ventilator. He is on volume assist- control, rate 20, tidal line 500, FiO2 50% to be dropped down to 40%, and PEEP of 5. Blood gases show pO2 118, pCO2 37, pH is 7.47. The patient is taking propofol at 50 mcg/kg/min, saline at KVO norepinephrine at 2 mcg/min IV heparin, and vital HP at 20 cc an hour with a goal of 37 cc. White count 8.9, hemoglobin 10, hematocrit 32.3, platelet count 262,000. PTT is 36.6. Sodium 136, potassium 4.2, chlorides 105, CO2 24, BUN 14, creatinine 0.37. Glucose is 138. Hemoglobin A1c is 6.6. Chest x-ray is essentially within normal range today for cardiomegaly. Progress note dated June 12, 2024. 58-year-old male seen again in room 255. The patient remains on mechanical ventilation. He is on volume assist-control, rate 20, tidal volume 500, FiO2 40%, PEEP of 5. Blood gases show pO2 of 80, pCO2 41, pH is 7.49. This blood gases consistent with metabolic alkalosis. The patient is on propofol at 25 mcg/kg/min, heparin via weight-based protocol, and vital HP at 37 cc an hour, which is goal. The patient had evidence of E. coli from the wound culture, the Escherichia coli is ESBL E. coli. For that reason he is on ertapenem. We will attempt a daily interruption of sedation. The patient did poorly with this holiday yesterday. His mental status was poor, but he still has increased secretions. He may eventually need tracheostomy and PEG tube placement. White count 5.4, hemoglobin 10.4, hematocrit 33.8, platelet count 338,000. PTT is 58.6. Sodium 139, potassium 3.5, chlorides 107, CO2 31, BUN 17, creatinine 0.37. Glucose is 108. Calcium 8.2. Chest x-ray shows a pattern of pulmonary vascular congestion, and bilateral effusions. Progress note dated June 14, 2024. 58-year-old male seen again in room 255. The patient remains on mechanical ventilation, and has done very poorly with his sedation holidays. He may end up with a tracheostomy and peg tube placement. Currently, he is on volume assist- control, rate 20, tidal volume 500, FiO2 40%, PEEP of 5. Blood gases show pO2 of 75, pCO2 of 41, pH is 7.49. He is getting saline at KVO, propofol at 20 mcg/kg/min, and IV heparin. He is on vital high-protein at 37 cc an hour, which is goal. He is also getting ertapenem, for an ESBL E. coli wound infection. Labs include a white count of 6, hemoglobin 10.8, hematocrit 34.6, and a hemant telet count of 370,000. Sodium 138, potassium 3.8, chlorides 107, CO2 27, BUN 18, and creatinine 0.35. Glucose is 133. Calcium 8.5. Magnesium 1.9. Chest x-ray shows unchanged chest x-ray with stable tubes and lines. Brain CT shows left MCA territory involving acute/subacute CVA, with no evidence for hemorrhagic conversion. Progress note dated June 15, 2024. 58-year-old male seen again in room 255. He remains on mechanical ventilation. He is on volume assist-control, rate 20, tidal line 500, FiO2 40%, PEEP of 5. Blood gases show pO2 of 81, pCO2 41, pH is 7.5. Blood gases are consistent with metabolic alkalosis. He is currently on propofol at 20 mcg/kg/min, heparin via weight-based protocol, saline at KVO, and vital high-protein at 37, which is goal. The patient will have a consult placed to surgery, for tracheostomy and PEG tube placement. His peak airway pressure is 19 cm of water. His plateau pressures 14 cm of water. The patient's airways resistance is 4.63 cmH2O per liters per second. White count is 5.8, hemoglobin 10.3, hematocrit 33.3, platelet count 3 and 44,000. Sodium 137, potassium 4, chloride 106, CO2 26, BUN 19, and creatinine 0.34. Glucose is 125. Calcium 8.2. Wound cultures are positive for ESBL Escherichia coli. Chest x-ray shows scattered bilateral infiltrates, which are unchanged. Progress note dated June 16, 2024. 58-year-old male seen again in room 255. He remains on mechanical ventilator. I did have a conversation with his Sister Altagracia today, about making the decision to proceed with tracheostomy and PEG tube placement. She was going to get back with us later today. He is on volume assist-control, rate 20, tidal volume 500, FiO2 40%, PEEP of 5. Blood gases show pO2 of 95, pCO2 43, pH is 7.47. The patient is on IV heparin via weight-based protocol, propofol at 20 mcg/kg/min, and vital AF at goal, which is 40 cc an hour. Labs include a white count 5.4, hemoglobin 10.7, hematocrit 34.6, and platelet count 435,000. PTT is 53.3. Sodium 137, potassium 3.8, chlorides 105, CO2 27, BUN 17, and creatinine 0.34. Wound cultures, were positive for ESBL Escherichia coli. For that reason, he is on ertapenem. Portable chest x-ray is largely unchanged. Progress note dated June 17, 2024. 58-year-old male seen in room 255. He remains on mechanical ventilator. He is on volume assist-control, rate 20, tidal volume 500, FiO2 40%, PEEP of 5. Blood gases show pO2 of 91, pCO2 44, pH is 7.47. He remains on propofol at 20 mcg/kg/min heparin via weight-based protocol, and saline at KVO. He is getting vital HP at 40, which is goal. I had a conversation with his Sister Altagracia yesterday, because I would like to move forward with tracheostomy tube insertion and PEG tube placement. Apparently, another sibling is coming into the hospital today to discuss those surgical procedures. White count 7.2, hemoglobin 10.9, hematocrit 35.3, and platelet count 494,000. PTT is 42.7. Sodium 137, potassium 3.6, chlorides 104, CO2 27, BUN 15, creatinine 0.34. Calcium 8.2. Glucose 120. Wound cultures from June 09, are positive for ESBL Escherichia coli. Chest x-ray shows evidence of cardiomegaly, mild pulmonary vascular c ongestion. Progress note dated June 18, 2024. 58-year-old male seen again in room 255. The patient remains on the mechanical ventilator. Ventilator settings include volume assist-control, rate 20, tidal volume 500, FiO2 40%, and PEEP of 5. Blood gases show pO2 of 80, pCO2 of 45, pH is 7.46. He continues on a heparin drip, via weight-based protocol, propofol at 25 mcg/kg/min, saline at 10 cc an hour. He is also getting vital high-protein at 40 cc an hour, which is goal. The patient will have a daily interruption of sedation, and spontaneous breathing trial today, on a pressure support of 5, CPAP of 5. Current labs include a white count 9, hemoglobin 11.3, hematocrit 36.6, and a platelet count of 599,000. PTT is 61.4. Sodium 138, potassium 3.6, chlorides 104, CO2 31, BUN 16, creatinine 0.36. Glucose is 118. Albumin is 2.6. Wound cultures, done on June 09, show evidence of ESBL Escherichia coli. For that, the patient is on ertapenem. Chest x-ray is largely unchanged. Progress note dated June 19, 2024. 58-year-old male again seen in the intensive care unit, room 255. The patient remains critically ill on the ventilator. Ventilator settings include volume assist-control, rate 20, tidal volume 500, FiO2 40%, PEEP of 5. Blood gases show pO2 of 74, pCO2 of 45, pH is 7.47. These blood gases are consistent with mild metabolic alkalosis. The patient is on heparin via weight-based protocol, propofol at 20 mcg/kg/min, vital high-protein at 40 cc an hour which is goal, and saline at 10 cc an hour. The patient will have a tracheostomy and PEG tube placement on Saturday. Yesterday he spent pretty much the whole day on pressure support and CPAP, but, was not able to be extubated, because of mental status changes and airway secretions. We will advance endotracheal tube 2 cm, as it appears high on the chest x-ray today. Current labs include a white count of 8, hemoglobin 10.9, hematocrit 35.8, platelet count 590,000. Sodium 135, potassium 4, chlorides 104, CO2 28, BUN 16, creatinine 0.28. Glucose 113. Albumin 2.8. The patient has a wound infection caused by ESBL Escherichia coli. For that he is on ertapenem. I have urged infectious diseases to give us an end date on his antibiotics. Chest x-ray shows some pulmonary venous congestion. Progress note dated June 20, 2024. 58-year-old male seen in room 255. The patient remains critically ill on the mechanical ventilator. Ventilator settings include volume assist-control, rate 20, tidal volume 500, FiO2 40%, PEEP of 5. Blood gases are currently pending. Patient continues on heparin via weight-based protocol, and tube feedings. In addition, the patient remains on propofol at 20 mcg/kg/min. Current laboratory data from June 20 are pending. Patient is able to tolerate. Pressure support and CPAP. Because of his poor mental status from a CVA, and airway secretions, it has been decided not to extubate the patient. Rather, the patient will have a tracheostomy and PEG tube placed on Saturday. Labs, x-rays, and all medications are reviewed. The patient also continues on ertapenem, for his ESBL Escherichia coli. Current medications include vitamin C, Lipitor, Dulcolax, Pulmicort, We llbutrin, chlorhexidine, vitamin D3, Flexeril, Farxiga, ertapenem, ferrous sulfate, formoterol, Lasix, Neurontin, heparin, Dilaudid, insulin, DuoNeb, magnesium, metoprolol, Singulair, Narcan, Zofran, Protonix, Paxil, potassium protocol, and Senokot. Progress note dated June 21, 2024. 58-year-old male again seen in room 255. In my opinion, the patient is not yet ready to be extubated, despite the fact that he is has some reasonable success with weaning trials. His overall mental status is poor, and he still has issues with secretions. He apparently is scheduled for tracheostomy and PEG tube in the morning. His ventilator settings include volume assist-control, rate 20, tidal volume 500, FiO2 40%, PEEP of 5. Blood gases this morning show pO2 of 94, pCO2 44, pH is 7.47. His CPAP trial was pressure support of 7, CPAP of 5, and 40%. The patient is on saline at KVO, IV heparin, and propofol, at 30 mcg/kg/min. He is getting vital high-protein at 40, which is goal. Current labs include a white count 7.3, hemoglobin 9.5, hematocrit 37.6, and platelet count of 689,000. Sodium 139, potassium 3.9, chlorides 105, CO2 28, BUN 17, creatinine 0.40. Glucose is 110. Calcium is 8.5. Wound cultures were positive for ESBL Escherichia coli. Chest x-ray shows some patchy infiltrates. Objective - Vital Signs Vital signs: Vital Signs Temp 98.1 F 06/21/24 08:00 Pulse 82 06/21/24 10:00 Resp 16 06/21/24 10:00 BP 137/106 06/21/24 10:00 Pulse Ox 97 06/21/24 10:00 FiO2 40 06/21/24 08:00 Intake & Output 06/20/24 06/21/24 06/21/24 18:59 06:59 18:59 Intake Total 1092.514 854.164 390 Output Total 1715 900 300 Balance -622.486 -45.836 90 Weight 108.5 kg Intake: IV 155 120 180 Ertapenem 1 gm In Sodium 50 150 Chloride 0.9% 50 ml @ 100 mls/hr IVPB DAILY [facility] Rx #:[id number] kvo 105 120 30 Intake, IV Titration 407.514 354.164 Amount Heparin Sod,Pork in 0.45% 220.092 205.73 NaCl 25,000 unit In 0.45 % NaCl 1 250ml.bag @ 8.65 UNITS/KG/HR 9.999 mls/hr IV .Q24H [facility] Rx#: [id number] propofoL 1,000 mg In 187.422 148.434 Empty Bag 1 bag @ 15 MCG/ KG/MIN 10.305 mls/hr IV . [id number] [facility] Rx#:[id number] Tube Feeding 440 320 120 Other 90 60 90 Output: Urine 1715 900 300 Other: Voiding Method Indwelling Catheter Indwelling Catheter Indwelling Catheter ABP, PAP, CO, CI - Last Documented Arterial Blood Pressure 106/58 - Exam No acute distress, sedated, with an orally placed endotracheal tube. HEENT examination is grossly unremarkable. Mucous membranes are moist. No oral lesions. Neck supple. Full range of motion. No adenopathy thyromegaly or neck vein distention. Cardiovascular examination reveals regular rhythm rate. S1-S2 normal. No S3 or S4. No discernible murmur noted. Heart rate 84 bpm. Lungs reveal mostly clear breath sounds. Minimal scattered rhonchi. No wheezes or crackles. Breath sounds equal. Saturations are 97 %. Abdomen soft bowel sounds are heard. No masses or tenderness. Extremities are intact. No cyanosis clubbing or edema. Skin is without rash or lesion. Neurologic examination cannot be assessed at this time. - Labs CBC & Chem 7: 06/21/24 05:16 06/21/24 05:16 Labs: Abnormal Lab Results - Last 24 Hours (Table) 06/20/24 06/20/24 06/21/24 Range/Units 12:27 12:59 05:16 RBC (4.30-5.90) m/uL Hgb (13.0-17.5) gm/dL Hct (39.0-53.0) % MCHC (31.0-37.0) g/dL RDW (11.5-15.5) % Plt Count (150-450) k/uL APTT 65.6 H 49.8 H (22.0-30.0) sec ABG pH (7.35-7.45) ABG HCO3 (21-25) mmol/L ABG Total CO2 (19-24) mmol/L ABG O2 Saturation (94-97) % Creatinine (0.66-1.25) mg/dL Glucose (74-99) mg/dL POC Glucose (mg/dL) 116 H (70-110) mg/dL 06/21/24 06/21/24 06/21/24 Range/Units 05:16 05:16 05:30 RBC 4.19 L (4.30-5.90) m/uL Hgb 11.5 L (13.0-17.5) gm/dL Hct 37.6 L (39.0-53.0) % MCHC 30.7 L (31.0-37.0) g/dL RDW 16.6 H (11.5-15.5) % Plt Count 689 H (150-450) k/uL APTT (22.0-30.0) sec ABG pH 7.47 H (7.35-7.45) ABG HCO3 32 H (21-25) mmol/L ABG Total CO2 33 H (19-24) mmol/L ABG O2 Saturation 98.0 H (94-97) % Creatinine 0.40 L (0.66-1.25) mg/dL Glucose 119 H (74-99) mg/dL POC Glucose (mg/dL) (70-110) mg/dL 06/21/24 Range/Units 06:28 RBC (4.30-5.90) m/uL Hgb (13.0-17.5) gm/dL Hct (39.0-53.0) % MCHC (31.0-37.0) g/dL RDW (11.5-15.5) % Plt Count (150-450) k/uL APTT (22.0-30.0) sec ABG pH (7.35-7.45) ABG HCO3 (21-25) mmol/L ABG Total CO2 (19-24) mmol/L ABG O2 Saturation (94-97) % Creatinine (0.66-1.25) mg/dL Glucose (74-99) mg/dL POC Glucose (mg/dL) 116 H (70-110) mg/dL Assessment and Plan Assessment: Status post fall, with L2 vertebral body compression fracture, L2-L3 right-sided transverse process fractures, and L2-L3 left-sided pedicle/transverse process fractures. Status postoperative day #11 following a revision T10 to pelvis decompression and fusion with stabilization. Routine postoperative mechanical ventilator management. Acute left frontal/parietal ischemic CVA. ESBL Escherichia coli wound infection. Recent L2 to pelvis posterior lateral decompression and fusion on 05/19/2024. Acute blood loss anemia, patient has received a total of 5 units of PRBCs perioperatively, 1 pack platelets, and is going to receive 1 unit FFP. Hypotension, resolved. Heart failure with reduced ejection fraction. Chronic atrial fibrillation. History of hypertension. History of hyperlipidemia. History of diabetes mellitus. Obesity, with a BMI of 38.4 kg/m. History of obstructive sleep apnea. Chronic obstructive pulmonary disease, stable. Former tobacco smoker. Remote history of prior C2-T2 Decompression and fusion. Plan: Plan dated June 11, 2024. The patient remains in the intensive care unit, on the mechanical ventilator. The patient did not do well yesterday with his daily interruption of sedation. It will be tried again today. The patient's FiO2 was reduced from 50%, down to 40%. The pO2 on the blood gas was 118. The patient continues on propofol at 50 mcg/kg/min, saline at KVO, and norepinephrine at 2 mcg/min. The patient is also receiving IV heparin via weight-based protocol, and vital high-protein, at 20 cc an hour, with a goal of 37 cc. The patient was discovered to have a left frontal parietal CVA, which is thought to be subacute. He is postop day #2. Labs, x-rays, and all medications are reviewed. Plan dated June 13, 2024. The patient remains in the intensive care unit. Yesterday, he did poorly with his sedation holiday. He has lots of airway secretions, and his mental status was poor. For that reason, he was resedated. We will attempt another sedation holiday today. The wound cultures, from his back, show evidence of ESBL Escherichia coli. For that reason he is on ertapenem. He continues on propofol at 25 mcg/kg/min, heparin via weight-based protocol, and vital HP at 37 cc an hour which is goal. Blood gases show pO2 of 80, pCO2 41, pH is 7.49. This blood gases consistent with metabolic alkalosis. Labs, x-rays, and medications are reviewed. The patient's overall prognosis remains guarded. We will tremayne emmanuellee to follow make recommendations along the way. Plan dated June 14, 2024. Unfortunately, every time we do a sedation holiday, the patient's neurologic status, does not improve. The patient also has lots of airway secretions. Anyway, today, the patient will not have a daily interruption of sedation. He continues on ertapenem for his ESBL Escherichia coli wound infection. He is getting nourished with vital high-protein at 37 cc an hour which is goal. He continues on IV heparin. The most recent brain CT is reviewed. The patient is on propofol at 20 mcg/kg/min. Blood gases showed metabolic alkalosis. We will continue to follow make recommendations along the way. The patient may need a tracheostomy and PEG tube placement, should he not show any additional improvement. Plan dated June 15, 2024. The patient has had at least 3 or 4 episodes of sedation holidays, with no neurologic improvement, and with increased airway secretions. The patient becomes agitated, tachypneic, tachycardic, and hypertensive. The patient has to be resedated. The patient will need a tracheostomy and PEG tube placement. We will contact the family if possible. Labs, x-rays, and medications are r eviewed. The patient's overall prognosis remains guarded. He continues on ertapenem for his ESBL Escherichia coli wound infection. Labs, x-rays, and all medications are reviewed. Prognosis is guarded. Blood gases are consistent with a metabolic alkalosis. Plan dated June 16, 2024. The patient is seen today in room 255. He basically is essentially unchanged. I did have a conversation with his sister Altagracia, who apparently resides in the [facility]. I have asked her to make a decision about tracheostomy and PEG tube placement. I would like to do that tomorrow if katiuska aguayo. Labs, x-rays, medications are reviewed. The patient does poorly on a sedation holiday. The patient was admitted after surgery, and had a left frontal temporal CVA. He continues on IV heparin and propofol. Labs, x-rays, and all medications have been reviewed. Prognosis is guarded. Plan dated June 17, 2024. The patient is seen today in room 255. He remains on mechanical ventilator. When the patient is off sedation, he does not appropriately respond. In addition, there is an issue with significant secretions. The patient should really proceed with a tracheostomy and PEG tube placement. I am having a hard time getting permission from the family members, including his sister Altagracia. Apparently another sibling will be by to see him today. We will ask him about that. He continues on propofol, and heparin via weight-based protocol. He is getting vital HP at 40 which is goal. Blood gases are very reasonable. Prognosis is guarded. Another option would be extubation, with primarily comfort care. Plan dated June 18, 2024. The patient's family did agree for tracheostomy and PEG tube, which apparently cannot be done till Saturday, because no surgeons are available. The patient was given a sedation holiday, placed on pressure support of 5, and CPAP of 5. The patient is not ready for extubation as his mental status is poor, and he is having issues ongoing with secretions. He continues on heparin via weight-based protocol. He is also on propofol at 25 mcg/kg/min, and vital high-protein at 40 cc an hour which is goal. Blood gases are stable. Labs, x-rays, medications are reviewed. The patient's recent surgery was complicated by a left frontal parietal CVA, with right-sided paralysis. We will continue to follow the patient, make recommendations. Prognosis is guarded. He continues on ertapenem for his ESBL wound infection secondary to Escherichia coli. Plan dated June 19, 2024. The patient remains critically ill on the mechanical ventilator. He apparently is scheduled for tracheostomy and PEG tube, on Saturday. The family has agreed. Currently, his blood gases show pO2 of 74, pCO2 45, pH is 7.47. This blood gases consistent with metabolic alkalosis. He continues on heparin via weight- based protocol, propofol at 20 mcg/kg/min, saline at 10 cc an hour, and vital high-protein at goal. The patient will have another daily interruption of sedation, and spontaneous breathing trial today. We will also advance endotracheal tube 2 cm. Labs, x-rays, and medications are reviewed. Prognosis is guarded. We will continue to follow the patient, and make recommendations where appropriate. Plan dated June 20, 2024. The patient remains critically ill on mechanical ventilator. The patient unfortunately suffered a left frontal parietal CVA. The patient is scheduled to have tracheostomy and PEG tube placement on Saturday. The family has agreed with this plan. Labs, x-rays, and all medications have been reviewed. Patient continues on IV heparin. We will continue to follow the patient, make recommendations where appropriate. The patient will also have noted daily interruption of sedation today, with a spontaneous breathing trial, both on pressure support and CPAP. I have also asked the nurse called infectious disease doctor, to determine the length of treatment with ertapenem. Overall prognosis remains guarded. Patient will likely need to be transferred to a specialized nursing facility or long-term acute care facility. Plan dated June 21, 2024. The patient remains critically ill on the mechanical ventilator. The patient d oes reasonably well with his weaning, but poor mental status, and airway secretions, preclude me from extubating him today. I think the more prudent approach is tracheostomy and PEG tube placement. The family has agreed. Labs, x-rays, and medications are reviewed. The patient is overall prognosis remains guarded. The patient continues on ertapenem for his infection. We will continue to follow the patient, and make recommendations along the way. Prognosis is certainly guarded. Time with Patient: Greater than 30
[2024-06-21 11:56] LABS: Glucose,Whole Blood 106 mg/dL (70-110)
--- NOTE | 2024-06-21 15:28 | P.PN ---
Subjective Progress Note Date: 06/21/24 CHIEF COMPLAINT: Status post fall with T10-T12 decompressions HISTORY OF PRESENT ILLNESS: The patient is a 58-year-old male status post fall with transverse process fractures and subsequent revision of T10 to pelvic decompression and fusion with stabilization. He is intensive care unit for respiratory failure. Patient still requiring mechanical ventilation. ROS: No fevers or chills. Morbid obesity, BMI 36.4. Obstructive sleep apnea. PHYSICAL EXAM: VITAL SIGNS: Reviewed CONSTITUTIONAL: Well developed and in no acute distress. EYES: Conjuctivae without sclera icterus. Extraocular movements grossly intact. HEAD, EARS, NOSE, THROAT: Moist buccal mucosa. Head is atraumatic, normocephal ic. Hears conversational speech. No nasal drainage. RESPIRATORY: Non-labored respirations and equal bilateral excursions. CARDIOVASCULAR: Palpable 2+ radial pulses. ABDOMEN: Obese. MUSCULOSKELETAL: No gross deformity of the lower extremities noted. No clubbing. No cyanosis. SKIN: Good skin turgor. Well perfused. NEUROLOGIC: Sedated PSYCH: Sedated CLINICAL LABS: Reviewed. White blood cell count normal at 7.3 ASSESSMENT: 1. Status post fall with transverse process vertebral fractures 2. Morbid obesity due to excess calories, BMI 36.4 3. Status post revision T10 to pelvis decompression fusion stabilization 4. Respiratory failure, vent dependent 5. Obstructive sleep apnea. PLAN: 1. Tracheostomy and gastrostomy tube placement for tomorrow Objective - Vital Signs Vital signs: Vital Signs Temp 98.6 F 06/21/24 12:00 Pulse 86 06/21/24 13:00 Resp 20 06/21/24 13:00 BP 108/77 06/21/24 13:00 Pulse Ox 96 06/21/24 13:00 FiO2 40 06/21/24 12:00 Intake & Output 06/20/24 06/21/24 06/21/24 18:59 06:59 18:59 Intake Total 1092.514 854.164 861.811 Output Total 1715 900 620 Balance -622.486 -45.836 241.811 Weight 108.5 kg Intake: IV 155 120 360 Ertapenem 1 gm In Sodium 50 300 Chloride 0.9% 50 ml @ 100 mls/hr IVPB DAILY [facility] Rx #:[id number] kvo 105 120 60 Intake, IV Titration 407.514 354.164 81.811 Amount Heparin Sod,Pork in 0.45% 220.092 205.73 NaCl 25,000 unit In 0.45 % NaCl 1 250ml.bag @ 8.65 UNITS/KG/HR 9.999 mls/hr IV .Q24H [facility] Rx#: [id number] propofoL 1,000 mg In 187.422 148.434 81.811 Empty Bag 1 bag @ 15 MCG/ KG/MIN 10.305 mls/hr IV . Q9H43M [facility] Rx#:[id number] Tube Feeding 440 320 240 Other 90 60 180 Output: Urine 1715 900 620 Other: Voiding Method Indwelling Catheter Indwelling Catheter Indwelling Catheter ABP, PAP, CO, CI - Last Documented Arterial Blood Pressure 106/58 - Labs CBC & Chem 7: 06/21/24 05:16 06/21/24 05:16 Labs: Abnormal Lab Results - Last 24 Hours (Table) 06/21/24 06/21/24 06/21/24 Range/Units 05:16 05:16 05:16 RBC 4.19 L (4.30-5.90) m/uL Hgb 11.5 L (13.0-17.5) gm/dL Hct 37.6 L (39.0-53.0) % MCHC 30.7 L (31.0-37.0) g/dL RDW 16.6 H (11.5-15.5) % Plt Count 689 H (150-450) k/uL APTT 49.8 H (22.0-30.0) sec ABG pH (7.35-7.45) ABG HCO3 (21-25) mmol/L ABG Total CO2 (19-24) mmol/L ABG O2 Saturation (94-97) % Creatinine 0.40 L (0.66-1.25) mg/dL Glucose 119 H (74-99) mg/dL POC Glucose (mg/dL) (70-110) mg/dL 06/21/24 06/21/24 Range/Units 05:30 06:28 RBC (4.30-5.90) m/uL Hgb (13.0-17.5) gm/dL Hct (39.0-53.0) % MCHC (31.0-37.0) g/dL RDW (11.5-15.5) % Plt Count (150-450) k/uL APTT (22.0-30.0) sec ABG pH 7.47 H (7.35-7.45) ABG HCO3 32 H (21-25) mmol/L ABG Total CO2 33 H (19-24) mmol/L ABG O2 Saturation 98.0 H (94-97) % Creatinine (0.66-1.25) mg/dL Glucose (74-99) mg/dL POC Glucose (mg/dL) 116 H (70-110) mg/dL
[2024-06-21] MEDS: FERROUS SULFATE ORAL ELIXIR 300 MG/5 ML CUP PO SCH (23:47)
[2024-06-21 23:50] LABS: Glucose,Whole Blood 108 mg/dL (70-110)
--- NOTE | 2024-06-22 01:23 | P.PN ---
Subjective Progress Note Date: 06/21/24 06/21/2024: Patient was seen for a follow-up. Patient is currently on propofol 45 mcg/kg per minute, also on heparin IV. 06/19/2024: Patient was seen for a follow-up. Patient is on propofol 25 g/kg/min, also on heparin IV. Patient is sedated today. He is diaphoretic. Yesterday he was on CPAP from 10 AM to 6 PM. Today he was placed on CPAP for half an hour but then he started tachycardic, tachypneic therefore back on full ventilation. He is not ready for extubation from a pulmonary standpoint. Also is somewhat weak. 06/18/2024: Patient is off sedation since 10 AM. Patient is squeezing left hand intermittently. Patient is currently on CPAP, tolerating it. Patient is not ready for extubation. If no remarkable improvement by Saturday, then patient will need tracheostomy and PEG placement. Patient's son was also present. He informs us that patient's hearing is normal. 06/17/2024: Patient was for a follow-up. Patient is laying in the bed, but much more alert and awake, following directions as per examination. Patient clearly not nodded his head "no no" for any headache. 06/16/2024: Patient was seen for a follow-up. Patient continues to be sedated with propofol 20 mcg/kg/min. Also heparin running for atrial fibrillation. Patient's vitals are stable with blood pressure 129/73. Patient more easily arousable. Please refer to examination below. 06/15/2024: Patient was initially seen by Dr. Lorenzo Lopez. Please refer to his note for details. 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 Patient has history of atrial fibrillation and his anticoagulation Xarelto was held due to recent cervical issues and likely resulted in stroke. Patient is currently on heparin drip and pending PEG and trach placement. Patient was seen for a follow-up. Discussed with patient's nurse and patient's ex- in detail. Patient had undergone lumbar spinal surgery on 05/19/2024. He returned back to the ER on 06/06/2024 after he had a fall and twisted his back but did not land on his back or land on his knees(as per ED notes). Patient mentioned that his pain has increased. Patient's ex- at this time however completely denies patient having any falls. Patient was seen by Dr. Jeffrey who felt the screws has come close. Patient was found to have fracture of the lumbar spine (acute) without cord injury. He had lumbosacral spondylosis with radiculopathy and weakness of both lower extremities which was acute. Patient underwent open treatment with reduction L1 2 and L3 fractures. The lesion T10 pelvic posterior lateral instrumented fusion. Segmental instrumentation T10 to pelvis. Removal of hardware L2 and L3. Cement augmentation T9, T10, L1, L2 and L3 screws. T8 vertebroplasty to prevent P.[place]. [place]. Postoperatively it was felt patient was not moving his right side of the body. He underwent CT head on 06/10/2024 which revealed findings of acute/subacute CVA involving the left frontoparietal region. CTA of head and neck revealed no significant diameter reduction took on for the patient's symptoms. No large vessel occlusion noted. Patient has remained intubated. Currently on propofol 20 g per program per minute. Patient has just received oxycodone. Per nursing report when the sedation is decreased, he appears to be "mad". He does move the left arm and the left leg, but not right side of the body. He moves right leg very little but not the right arm. Some of the other workup during this hospital visit consisted of: Lipid panel is triglyceride 68, cholesterol is 56, LDL is 18 and HDL is 23 Hemoglobin A1c 6.6. The echo on 06/08/2024 is reported as ejection fraction of 25 to 30%. [address] head is reported as finding of acute/subacute CVA involving the left frontal parietal region. I personally reviewed CT and agree with the findings. CTA head and neck is read as no significant diameter reduction to account for the patient's symptoms. Area of hypoattenuation as described on the prior CT brain left frontal parietal region compatible with a finding of acute/subacute CVA. Repeat CT head 06/12/2024: Ongoing evolution of acute to subacute infarct over latral left frontal and parietal region with greater degree of hypodensity. Similar sulcal effacement. Minimal righward midline shift of 4mm vs 3mm measure on 06/10/24. No hemorrhagic transformation. Wound culture is positive for ESBL E. coli. Limited 2D echo was reported as mild reduced left ventricle systolic function left atrial enlargement. Most recent repeat CT of the head on 06/14/2024 is reported as left MCA territory evolving acute/subacute CVA. No evidence for hemorrhagic conversion. I personally reviewed the CT and I agree with the report. Objective - Vital Signs Vital signs: Vital Signs Temp 98.1 F 06/21/24 08:00 Pulse 96 06/21/24 11:56 Resp 16 06/21/24 10:00 BP 137/106 06/21/24 10:00 Pulse Ox 97 06/21/24 10:00 FiO2 40 06/21/24 11:54 Intake & Output 06/20/24 06/21/24 06/21/24 18:59 06:59 18:59 Intake Total 1092.514 854.164 406.890 Output Total 1715 900 300 Balance -622.486 -45.836 106.890 Weight 108.5 kg Intake: IV 155 120 180 Ertapenem 1 gm In Sodium 50 150 Chloride 0.9% 50 ml @ 100 mls/hr IVPB DAILY [facility] Rx #:[id number] kvo 105 120 30 Intake, IV Titration 407.514 354.164 16.890 Amount Heparin Sod,Pork in 0.45% 220.092 205.73 NaCl 25,000 unit In 0.45 % NaCl 1 250ml.bag @ 8.65 UNITS/KG/HR 9.999 mls/hr IV .Q24H [facility] Rx#: [id number] propofoL 1,000 mg In 187.422 148.434 16.890 Empty Bag 1 bag @ 15 MCG/ KG/MIN 10.305 mls/hr IV . Q9H43M [facility] Rx#:[id number] Tube Feeding 440 320 120 Other 90 60 90 Output: Urine 1715 900 300 Other: Voiding Method Indwelling Catheter Indwelling Catheter Indwelling Catheter ABP, PAP, CO, CI - Last Documented Arterial Blood Pressure 106/58 - Exam Patient is intubated, on sedation with propofol 45 mcg/kg per minute. Patient is slightly diaphoretic. Patient appears comfortable at this time. Patient is sedated today. He is less responding as compared to yesterday. Pupils are equal, round and reacting. Muscle examination was inconsistent. Per nursing staff as well, sometimes he is more cooperating other times he does not want to cooperate with any examination. He seems to move his left arm and leg better than right. - Labs CBC & Chem 7: 06/21/24 05:16 06/21/24 05:16 Labs: Abnormal Lab Results - Last 24 Hours (Table) 06/20/24 06/21/24 06/21/24 Range/Units 12:59 05:16 05:16 RBC 4.19 L (4.30-5.90) m/uL Hgb 11.5 L (13.0-17.5) gm/dL Hct 37.6 L (39.0-53.0) % MCHC 30.7 L (31.0-37.0) g/dL RDW 16.6 H (11.5-15.5) % Plt Count 689 H (150-450) k/uL APTT 65.6 H 49.8 H (22.0-30.0) sec ABG pH (7.35-7.45) ABG HCO3 (21-25) mmol/L ABG Total CO2 (19-24) mmol/L ABG O2 Saturation (94-97) % Creatinine (0.66-1.25) mg/dL Glucose (74-99) mg/dL POC Glucose (mg/dL) (70-110) mg/dL 06/21/24 06/21/24 06/21/24 Range/Units 05:16 05:30 06:28 RBC (4.30-5.90) m/uL Hgb (13.0-17.5) gm/dL Hct (39.0-53.0) % MCHC (31.0-37.0) g/dL RDW (11.5-15.5) % Plt Count (150-450) k/uL APTT (22.0-30.0) sec ABG pH 7.47 H (7.35-7.45) ABG HCO3 32 H (21-25) mmol/L ABG Total CO2 33 H (19-24) mmol/L ABG O2 Saturation 98.0 H (94-97) % Creatinine 0.40 L (0.66-1.25) mg/dL Glucose 119 H (74-99) mg/dL POC Glucose (mg/dL) 116 H (70-110) mg/dL Assessment and Plan Assessment: 58-year-old gentleman with history of atrial fibrillation status post cardioversion on Xarelto, diabetes mellitus, heart failure, cervical myelopathy, back pain and had recent L2 to pelvis decompression and fusion of bilateral open SI joint on 05/19/2024 who had a recent fall with back pain. Patient had L2-L3 fracture and has hardware failure of the thoracic spine to pelvis. On 06/09/2024, patient had L1-L2 and L3 revision T10 to pelvis posterior lateral instrumented fusion with hardware removal. His Xarelto was held 48 hours and it seems last dose was on 06/08/2024 per the nurse. On 06/10/2024, when the sedation was held the patient was not moving the right side and CT of the head shows acute to subacute over the left frontal parietal region. Acute to subacute stroke (seems more subacute) over the left frontal parietal region Altered mental status due to above, sepsis (Wound culture is positive for ESBL E. coli.) Recent fall with back pain and it seems that the patient has L2-L3 Fracture s/p revision T10 to Pelvis posterior lateral instrument fusion with hardware removal Intubated on a ventilator History of atrial fibrillation status post cardioversion and was on Xarelto and the Xarelto was held for the last 48 hours but currently on heparin drip History of cervical myelopathy status post C2-T2 decompression and fusion Recent recent L2 to pelvis decompression and fusion of bilateral open SI joint on 05/19/2024 History of Systolic Heart failure and recent 2D echo on 06/08/24 has EF 25-30% Diabetes mellitus and HbA1c: 6.6 Chronic hypertension History of hyperlipidemia History of obstructive sleep apnea Former tobacco use Of Plan: Patient is on heparin drip for the A-fib. From neurology perspective the patient can resume Xarelto. Dr. Lopez has spoken with the ICU nurse and she stated that per the ICU attending, remain on heparin drip for now, until he undergoes a trach and PEG. Most recent PTT 49.8. Is on Lipitor 40mg qhs which is sufficient for secondary stroke prophylaxis. Patient's mentation is improving. Strength is also improving. Patient is not fulfilling extubation criteria, therefore continues to be intubated. Patient to undergo tracheostomy and PEG placement in the morning. Continue neurochecks Cardiac monitoring PT OT are consulted. Right-sided weakness is improving. Cardiology team is on board Will defer the rest of the medical management to primary and other specialists DVT prophylaxis: On heparin drip. Keep the PTT between 45 and 60, as per Dr. Lopez recommendation. Current PTT 68.2. Condition is very guarded. Discussed with nursing staff in detail. Dr. Lorenzo Lopez to resume neurology service in the morning.
--- NOTE | 2024-06-22 03:41 | PN ---
PROGRESS NOTE SUBJECTIVE: Atrial fibrillation. The patient is still in the ICU. Scheduled to see a hot room attendant as he is ready to be extubated. He has had some reasonable success with weaning trials he says. Mental status is poor. Secretions, apparently scheduled for trach and PEG in the morning. Vent settings, ABG is reviewed. Labs reviewed. Wound cultures positive for ESBL E coli, infectious disease on the case, has him on broad- spectrum antibiotics. OBJECTIVE: VITAL SIGNS: Temperature 98.1, pulse 82, respiratory rate 16 to 18, blood pressure 136/106, O2 97, and FiO2 40. CARDIOVASCULAR: S1, S2. LUNGS: Mild wheeze and rhonchi. ABDOMEN: Soft. EXTREMITIES: No edema. SKIN: No rash. HEENT: Normocephalic, atraumatic. LABORATORY DATA: White count 7.3, hemoglobin 11.5, BUN is 7, creatinine 0.4. He is status post vertebral compression fractures after lumbar fusion day 11 postop. He had a stroke during the second surgery, mechanical ventilating left frontoparietal ischemic CVA, ESBL E coli wound. 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 He wants to do trach and PEG, schedule for tomorrow. Prognosis is guarded. Most likely, this would be done tomorrow morning. Prognosis guarded. MMODL / IJN: [id number] /
[2024-06-22 04:52] LABS: ABG Base Excess 7.4 mmol/L; ABG HCO3 31 mmol/L (21-25); ABG Oxygen Saturation 94.7 % (94-97); ABG PCO2 40 mmHg (35-45); ABG PO2 69 mmHg (83-108); ABG TCO2 32 mmol/L (19-24); Allen Test Performed? Yes
[2024-06-22 05:23] LABS: Glucose,Whole Blood 105 mg/dL (70-110)
--- NOTE | 2024-06-22 06:17 | PN ---
PROGRESS NOTE A 58-year-old white male, status post intubation for respiratory failure, status post CVA during his procedure of surgical repair. Dr. Camejo has been consulted for Infectious Disease. He had ESBL E coli. Surgical cultures DICTATION ENDS HERE MMODL / IJN: [id number] /
[2024-06-22 06:51] LABS: Anisocytosis Slight; Basophils # (A) 0.1 k/uL (0-0.2); Basophils % (A) 1 %; Eosinophils # (A) 0.2 k/uL (0-0.7); Eosinophils % (A) 3 %; HCT 39.6 % (39.0-53.0); HGB 11.8 gm/dL (13.0-17.5); Hypochromasia Marked; Lymphocytes # (A) 1.2 k/uL (1.0-4.8); Lymphocytes % (A) 16 %; MCH 27.2 pg (25.0-35.0); MCHC 29.9 g/dL (31.0-37.0); Mean Platelet Volume 7.2; Monocytes # (A) 0.6 k/uL (0-1.0); Monocytes % (A) 8 %; Neutrophils # (A) 5.5 k/uL (1.3-7.7); Neutrophils % (A) 71 %; Platelet Count 698 k/uL (150-450); Poikilocytosis Slight; RBC 4.35 m/uL (4.30-5.90); RDW 16.7 % (11.5-15.5); WBC 7.7 k/uL (3.8-10.6)
[2024-06-22 07:04] LABS: ALT 49 U/L (4-49); AST 45 U/L (17-59); African American GFR (CKD) >90 (>60 ml/min/1.73 sqM); Alkaline Phosphatase 145 U/L (38-126); Anion Gap 3 mmol/L; Blood Urea Nitrogen 14 mg/dL (9-20); Carbon Dioxide 30 mmol/L (22-30); Chloride 105 mmol/L (98-107); Glucose 97 mg/dL (74-99); Non-African American GFR(CKD) >90 (>60 ml/min/1.73 sqM); Potassium 4.2 mmol/L (3.5-5.1); Sodium 138 mmol/L (137-145); Total Bilirubin 1.2 mg/dL (0.2-1.3); Total Protein 5.4 g/dL (6.3-8.2)
--- NOTE | 2024-06-22 07:45 | XR ---
EXAMINATION TYPE: XR chest 1V portable DATE OF EXAM: 06/22/2024 COMPARISON: 06/21/2024 HISTORY: SOB, Follow Up FINDINGS: Patient rotation limits evaluation. Indwelling tubes and catheters are unchanged. Pulmonary venous congestion persists although may be improved. Stable appearance of the cardio-mediastinal structures at this time. Pleural effusion unchanged. IMPRESSION: 1. Pulmonary venous congestion persists although may be improved.
--- NOTE | 2024-06-22 07:54 | P.PN ---
Subjective Progress Note Date: 06/21/24 Principal diagnosis: Reason for follow-up is lumbar surgical site infection ESBL E. coli Patient is a 58-year-old male with a past medical history significant for diabetes mellitus hypertension COPD atrial fibrillation sleep apnea initially presented to hospital with back pain has been diagnosed with L1-L3 fracture status post extensive surgery and surgical cultures came back positive with ESBL E. coli prompted this consultation. On today's evaluation that is 06/21/2024,the patient remains to be afebrile, patient is on the ventilator FiO2 is currently stable at 40% no significant purulent secretions through the ET patient is hemodynamically stable not requiring any pressor support tolerating his tube feeds and no diarrhea has been reported. Patient white count 7.3, creatinine 0.40 Objective - Vital Signs Vital signs: Vital Signs Temp 98.8 F 06/21/24 16:00 Pulse 80 06/21/24 16:04 Resp 20 06/21/24 16:00 BP 119/72 06/21/24 16:00 Pulse Ox 97 06/21/24 16:00 FiO2 40 06/21/24 16:00 Intake & Output 06/20/24 06/21/24 06/21/24 18:59 06:59 18:59 Intake Total 1092.514 063.858 8868.305 Output Total 1715 900 920 Balance -622.486 -45.836 407.305 Weight 108.5 kg Intake: IV 155 120 360 Ertapenem 1 gm In Sodium 50 300 Chloride 0.9% 50 ml @ 100 mls/hr IVPB DAILY [facility] Rx #:[id number] kvo 105 120 60 Intake, IV Titration 407.514 354.164 397.305 Amount Heparin Sod,Pork in 0.45% 220.092 205.73 250 NaCl 25,000 unit In 0.45 % NaCl 1 250ml.bag @ 8.65 UNITS/KG/HR 9.999 mls/hr IV .Q24H [facility] Rx#: [id number] propofoL 1,000 mg In 187.422 148.434 147.305 Empty Bag 1 bag @ 15 MCG/ KG/MIN 10.305 mls/hr IV . Q9H43M [facility] Rx#:[id number] Tube Feeding 440 320 360 Other 90 60 210 Output: Urine 1715 900 920 Other: Voiding Method Indwelling Catheter Indwelling Catheter Indwelling Catheter ABP, PAP, CO, CI - Last Documented Arterial Blood Pressure 106/58 - Exam GENERAL DESCRIPTION: Middle-age male intubated on the vent RESPIRATORY SYSTEM: Unlabored breathing , decreased breath sounds at bases HEART: S1 S2 regular rate and rhythm , ABDOMEN: Soft , no tenderness EXTREMITIES: No edema feet - Labs CBC & Chem 7: 06/22/24 05:44 06/22/24 05:44 Labs: Abnormal Lab Results - Last 24 Hours (Table) 06/21/24 06/21/24 06/21/24 Range/Units 05:16 05:16 05:16 RBC 4.19 L (4.30-5.90) m/uL Hgb 11.5 L (13.0-17.5) gm/dL Hct 37.6 L (39.0-53.0) % MCHC 30.7 L (31.0-37.0) g/dL RDW 16.6 H (11.5-15.5) % Plt Count 689 H (150-450) k/uL APTT 49.8 H (22.0-30.0) sec ABG pH (7.35-7.45) ABG HCO3 (21-25) mmol/L ABG Total CO2 (19-24) mmol/L ABG O2 Saturation (94-97) % Creatinine 0.40 L (0.66-1.25) mg/dL Glucose 119 H (74-99) mg/dL POC Glucose (mg/dL) (70-110) mg/dL 06/21/24 06/21/24 Range/Units 05:30 06:28 RBC (4.30-5.90) m/uL Hgb (13.0-17.5) gm/dL Hct (39.0-53.0) % MCHC (31.0-37.0) g/dL RDW (11.5-15.5) % Plt Count (150-450) k/uL APTT (22.0-30.0) sec ABG pH 7.47 H (7.35-7.45) ABG HCO3 32 H (21-25) mmol/L ABG Total CO2 33 H (19-24) mmol/L ABG O2 Saturation 98.0 H (94-97) % Creatinine (0.66-1.25) mg/dL Glucose (74-99) mg/dL POC Glucose (mg/dL) 116 H (70-110) mg/dL Assessment and Plan (1) Surgical site infection Current Visit: Yes Status: Acute Code(s): T81.49XA - INFECTION FOLLOWING A PROCEDURE, OTHER SURGICAL SITE, INIT SNOMED Code(s): 75342085 (2) Infection due to ESBL-producing Escherichia coli Current Visit: Yes Status: Acute Code(s): A49.8 - OTHER BACTERIAL INFECTIONS OF UNSPECIFIED SITE; Z16.12 - EXTENDED SPECTRUM BETA LACTAMASE (ESBL) RESISTANCE SNOMED Code(s): 506617118 Plan: 1patient presented to the hospital with back pain more than a week ago from initial evaluation in this patient who did have extensive lumbosacral spine surgery now has been taken back to the OR noticed to have hardware failure fracture of the vertebra s/p redo surgery and culture which has been finalized as ESBL E. coli 2-patient remains to be afebrile white count has been normal blood sputum culture has been negative 3PICC line has been ordered for tomorrow and also plan for trach and PEG as discussed with the nursing staff continue with Invanz Dictation was produced using [employer] dictation software. please excuse any grammatical, word or spelling errors. Time with Patient: Less than 30
--- NOTE | 2024-06-22 10:36 | XR ---
EXAMINATION TYPE: XR chest 1V DATE OF EXAM: 06/22/2024 COMPARISON: Earlier today HISTORY: 58-year-old male PICC line placement TECHNIQUE: Single frontal view of the chest is obtained. FINDINGS: The patient is prominently rotated towards the right. ACDF and posterior cervical fusion hardware. Additional lower thoracic lumbar fusion hardware. Left P ICC tip at the expected cavoatrial junction. ET tube satisfactory. NG tube tip not seen beyond the mid chest level. Heart mild to moderately enlar ged. Interstitial density is present. Mild patchy right basilar opacity. IMPRESSION: 1. NG tube tip not seen beyond the mid chest level. 2. Left PICC tip at the expected cavoatrial junction. 3. Correlate for ongoing mild pulmonary vascular congestion. Similar patchy atelectasis or consolidat ion at the right base.
--- NOTE | 2024-06-22 11:15 | P.PN ---
Subjective Progress Note Date: 06/22/24 Delayed charting pt seen at 07 Pt s/e at bedside with Nursing. Currently vented and sedated. Trach and Peg planned for today around 11. Overall he has been stable. Still becomes agitated when weaned and has been off sedation a max of 4 hrs yesterday. Nursing stated that his right side was now moving and more than before and somewhat purposeful as he tries to pull out his tube. Left side is still relatively normal as far as motion. He has shown purposeful command following in the recent days as well per nursing. Today it is moving in his bed, but does not rouse to any stim as he is currently sedated awaiting his Trach/peg. VSS at this time. No family at bedside. Spoke with nursing extensively about this situation as it is somewhat complicated. She stated there is a sister who lives in that is now in chart and next of kin who can be spoken to. Attempt made to contact today no answer will try again ABHIJEET for update. Unsure of situation with exspouse as of now. Objective - Vital Signs Vital signs: Vital Signs Temp 98.3 F 06/22/24 08:00 Pulse 84 06/22/24 10:00 Resp 20 06/22/24 10:00 BP 120/95 06/22/24 09:00 Pulse Ox 95 06/22/24 10:00 FiO2 40 06/22/24 08:00 Intake & Output 06/21/24 06/22/24 06/22/24 18:59 06:59 18:59 Intake Total 1512.341 941.757 160.000 Output Total 1245 1525 80 Balance 267.341 -583.243 80.000 Weight 106.3 kg Intake: IV 400 260 60 Ertapenem 1 gm In Sodium 300 Chloride 0.9% 50 ml @ 100 mls/hr IVPB DAILY [facility] Rx #:[id number] Lactated Ringers 1,000 ml 40 260 60 @ 20 mls/hr IV .Q24H [facility] Rx#:[id number] kvo 60 Intake, IV Titration 462.341 451.757 100.000 Amount Heparin Sod,Pork in 0.45% 250 224.433 NaCl 25,000 unit In 0.45 % NaCl 1 250ml.bag @ 8.65 UNITS/KG/HR 9.999 mls/hr IV .Q24H [facility] Rx#: [id number] propofoL 1,000 mg In 212.341 227.324 100.000 Empty Bag 1 bag @ 15 MCG/ KG/MIN 10.305 mls/hr IV . Q9H43M [facility] Rx#:[id number] Tube Feeding 440 200 0 Other 210 30 Output: Urine 1245 1525 80 Other: Voiding Method Indwelling Catheter Indwelling Catheter Indwelling Catheter # Bowel Movements 1 ABP, PAP, CO, CI - Last Documented Arterial Blood Pressure 106/58 - Exam VSS at this time Vented Sedated Spontaneous movement of UE and LE on the Left with good strength, no decrease here. Also shows continued normal and baseline myelopathic like sx with +Ramirez's which is about the same briskness as it has been in the past and no sustained clonus on the LLE or LUE. Reflexes of the LUE and LLE are somewhat brisk however at 3+ but normal. Babinski is down-going. No response to painful stim at this time due to sedation. RUE and RLE show movement which was witnessed today in the form of spontaneous flexion of the right elbow with forward flexion in an assumed attempt to reach the tube. There is some posturing of the right hand however noted. Myelopathy sx in the RUE and RLE are more pronounced with brisk Ramirez's+ and clonus of the UE and LE which shows >10 beats. Babinski is still down-going. Reflexes of UE and LE are much more brisk than baseline from myelopathy and 3++. No response to LT or painful stimuli at this time due to sedation. Dressing is CDI at this time. No drainage. Changed yesterday. Incision is CDI. No EEE. No sacral ulcers, heel ulcers at this time. heels are floated. Good padding noted around bony prominences at this time. Pt is currently turned slightly to the right as he is being turned q2 at this time. - Labs CBC & Chem 7: 06/22/24 05:44 06/22/24 05:44 Labs: Abnormal Lab Results - Last 24 Hours (Table) 06/22/24 06/22/24 06/22/24 Range/Units 04:50 05:44 05:44 Hgb 11.8 L (13.0-17.5) gm/dL MCHC 29.9 L (31.0-37.0) g/dL RDW 16.7 H (11.5-15.5) % Plt Count 698 H (150-450) k/uL ABG pH 7.50 H (7.35-7.45) ABG pO2 69 L (83-108) mmHg ABG HCO3 31 H (21-25) mmol/L ABG Total CO2 32 H (19-24) mmol/L Creatinine 0.44 L (0.66-1.25) mg/dL Alkaline Phosphatase 145 H (38-126) U/L Total Protein 5.4 L (6.3-8.2) g/dL Albumin 3.0 L (3.5-5.0) g/dL Assessment and Plan (1) CVA (cerebral vascular accident) Narrative/Plan: This is a presumed diagnosis based on neurology evaluation and imaging. There has been no ability to gain meaningful neuro exam at this time due to agitation and failed SBT attempts. Current Visit: Yes Status: Ruled-out Priority: High Code(s): I63.9 - CEREBRAL INFARCTION, UNSPECIFIED SNOMED Code(s): 483257153 (2) Acute postoperative anemia due to expected blood loss Current Visit: Yes Status: Acute Priority: Medium Code(s): D62 - ACUTE POSTHEMORRHAGIC ANEMIA SNOMED Code(s): 53171438599233944 (3) Facet arthropathy, lumbar Current Visit: Yes Status: Acute Priority: Low Code(s): M47.816 - SPONDYLOSIS W/O MYELOPATHY OR RADICULOPATHY, LUMBAR REGION SNOMED Code(s): 100832131 (4) Facet arthropathy, lumbosacral Current Visit: Yes Status: Acute Priority: Low Code(s): M47.817 - SPONDYLS W/O MYELOPATHY OR RADICULOPATHY, LUMBOSACR REGION SNOMED Code(s): 550395763 (5) Failed hardware Current Visit: Yes Status: Acute Priority: Medium Code(s): OED7744 - SNOMED Code(s): 452779436 (6) Fall Current Visit: Yes Status: Acute Priority: High Code(s): W19.XXXA - UNSPECIFIED FALL, INITIAL ENCOUNTER SNOMED Code(s): 7678062 (7) Fracture of lumbar spine without cord injury Current Visit: Yes Status: Acute Priority: High Code(s): S32.009A - UNSP FRACTURE OF UNSP LUMBAR VERTEBRA, INIT FOR CLOS FX SNOMED Code(s): 35867462 (8) Hypercapnic respiratory failure Current Visit: Yes Status: Acute Priority: High Code(s): J96.92 - RESPIRATORY FAILURE, UNSPECIFIED WITH HYPERCAPNIA SNOMED Code(s): 526672515 (9) Infection due to ESBL-producing Escherichia coli Current Visit: Yes Status: Acute Priority: High Code(s): A49.8 - OTHER BACTERIAL INFECTIONS OF UNSPECIFIED SITE; Z16.12 - EXTENDED SPECTRUM BETA LACTAMASE (ESBL) RESISTANCE SNOMED Code(s): 601216100 (10) Lumbar stenosis with neurogenic claudication Current Visit: Yes Status: Acute Priority: High Code(s): M48.062 - SPINAL STENOSIS, LUMBAR REGION WITH NEUROGENIC CLAUDICATION SNOMED Code(s): 12676638 (11) Lumbosacral spondylosis with radiculopathy Current Visit: Yes Status: Acute Priority: High Code(s): M47.27 - OTHER SPONDYLOSIS WITH RADICULOPATHY, LUMBOSACRAL REGION SNOMED Code(s): 202820321 (12) Previous back surgery Current Visit: Yes Status: Acute Priority: Medium Code(s): Z98.890 - OTHER SPECIFIED POSTPROCEDURAL STATES SNOMED Code(s): 125281782 (13) Surgical site infection Current Visit: Yes Status: Acute Priority: High Code(s): T81.49XA - INFECTION FOLLOWING A PROCEDURE, OTHER SURGICAL SITE, INIT SNOMED Code(s): 54768714 (14) Weakness of both lower extremities Current Visit: Yes Status: Acute Priority: Medium Code(s): R29.898 - OTH SYMPTOMS AND SIGNS INVOLVING THE MUSCULOSKELETAL SYSTEM SNOMED Code(s): 5708389 (15) COPD (chronic obstructive pulmonary disease) Current Visit: Yes Status: Chronic Priority: High Code(s): J44.9 - CHRONIC OBSTRUCTIVE PULMONARY DISEASE, UNSPECIFIED SNOMED Code(s): 80442921 (16) Diabetes type 2, uncontrolled Current Visit: Yes Status: Chronic Priority: High Code(s): TPU1195 - SNOMED Code(s): 469914813 Plan: -Appreciate primary ICU, Medicine, Cardio management. -Pt is stable from lumbar spine standpoint. Being tx fro SSI by ID. -Change dressing tomorrow, inspect wound again, possible removal of torsten/sutures -Cont with turn q2. Remove pressure from lumbar wound for healing. Prevent ulcers. Float heels. Prop arms up. Pad bony prominences. -Neuro exam once sedation able to be turned off as well as mental evaluation by neurology recommended. -Cont with Abx per ID. -REcommend aggressive GI PPX. Meticulous cleaning after BM to keep lumbar wound clean with hx of E.Coli SSI -PT/OT for joint mobilization daily. -Cont with anticoagulation -Will continue to follow closely. Will attempt to update family again on spine ABHIJEET.
[2024-06-22 11:33] LABS: Glucose,Whole Blood 105 mg/dL (70-110)
[2024-06-22] MEDS ORDERED: ROCURONIUM 10 MG/ML (5 ML VIAL) IV ONE (12:10)
[2024-06-22] MEDS ORDERED: fentaNYL (PF) 50 MCG/ML 2 ML AMP ONE (12:10)
[2024-06-22] MEDS ORDERED: KETAMINE HCL IN 0.9 % NACL 50 MG/5 ML SYRINGE ONE (12:10)
[2024-06-22] MEDS ORDERED: PROPOFOL 10 MG/ML 20 ML VIAL IV ONE (12:10)
[2024-06-22] MEDS: LIDOCAINE 1% INJ 10MG/ML (20 ML MDV) SQ ONE (12:22)
--- NOTE | 2024-06-22 12:29 | P.PN ---
Subjective Progress Note Date: 06/22/24 Principal diagnosis: L2 vertebral body compression fracture, postoperative day #12, acute CVA Patient is a 58-year-old white male with past medical history significant for obstructive sleep apnea with home CPAP, COPD, ex tobacco smoker, marijuana smoker, atrial fibrillation with previous cardioversion and anticoagulated on Xarelto, diabetes mellitus, hypertension, heart failure, and previous spinal surgeries. His primary care provider is Dr. Deuce Brito. He is currently intubated to the mechanical ventilator, unable to provide any information for HPI. Of note, patient recently underwent an L2 to pelvis posterior lateral decompression and fusion on 05/19/2024 at [facility]. During this admission, he initially was recovered in the intensive care unit. Technically, difficult to extubate, and did require BiPAP support immediately after extubation. He was eventually discharged home on 05/26/2024. Patient returned the emergency department on 06/06/2024. On review of the ER documentation, he had a fall while at home. CT of the lumbar spine demonstrated new compression fracture of L2 vertebral body with compression of the vertebral body down to the pedicle screws bilaterally and loosening the left pedicle screw. New left pedicle/transverse process of L2 and L3 fractures around the hardware with mild displacement. Fractures of the right transverse process of L2 and L3. Likely postsurgical subcutaneous gas in the surgical bed. Patient underwent revision thoracic T10 to pelvis decompression fusion yesterday. Intraoperatively, patient had an EBL of 1 L. He has received a total of 5 units of PRBCs, 1 FFP, and 1 pack platelets. He was sent to the intensive care unit postoperatively. He remains on the mechanical ventilator. Chest x-ray shows the endotracheal tube approximately 4.3 cm above the shashank. There is cardiomegaly with pulmo nary vascular congestion suggested. No pleural effusions, pneumothoraces, focal consolidations. Initial ABG had a PaO2 of 80, pCO2 of 61, pH of 7.27. This was done on original ventilator settings of assist-control, respiratory rate 14, tidal volume 500, FiO2 1 9%, and PEEP of 5. My supervising physician is already increased the patient's respiratory rate to 20. He is currently synchronous wit h mechanical ventilator. There is a moderate amount of clear to white endotracheal secretions. Peak pressures 23. He is sedated with propofol which is currently infusing at 50 mcg/kg/min. He is fairly unarousable. Will withdraw to painful stimuli in all 4 extremities. There is also norepinephrine infusing at 0.02 mcg/kg/min. There is a MAP goal of 80 mmHg to support WELT ROUGHER perfusion. LR is infusing at 10 MLS per hour. There is a Hemovac with a total of 220 serosanguineous output since surgery. We are awaiting postoperative labs. Preoperatively, CBC: WBC count 9.4, hemoglobin 9.6, hematocrit 32.5, platelets 516. Preoperative CMP: Sodium 137, potassium 4.1, chloride 104, serum bicarb 27, BUN 18, creatinine 0.61, glucose 143. LFTs unremarkable. Receiving prophylactic cefazolin. Note that preoperatively, patient did have a cardiac evaluation. Repeat echocardiogram shows a severely reduced left ventricular ejection fraction of 25 to 30% as well as mild mitral and tricuspid regurgi tation. Heart rhythm is atrial fibrillation with controlled ventricular response. Normally anticoagulated on Xarelto, however, this is on hold for surgery. Progress note dated June 20, 2024. 58-year-old male seen in room 255. The patient remains critically ill on the mechanical ventilator. Ventilator settings include volume assist-control, rate 20, tidal volume 500, FiO2 40%, PEEP of 5. Blood gases are currently pending. Patient continues on heparin via weight-based protocol, and tube feedings. In addition, the patient remains on propofol at 20 mcg/kg/min. Current laboratory data from June 20 are pending. Patient is able to tolerate. Pressure support and CPAP. Because of his poor mental status from a CVA, and airway secretions, it has been decided not to extubate the patient. Rather, the patient will have a tracheostomy and PEG tube placed on Saturday. Labs, x-rays, and all medications are reviewed. The patient also continues on ertapenem, for his ESBL Escherichia coli. Current medications include vitamin C, Lipitor, Dulcolax, Pulmicort, Wellbutrin, chlorhexidine, vitamin D3, Flexeril, Farxiga, ertapenem, ferrous sulfate, formoterol, Lasix, Neurontin, heparin, Dilaudid, insulin, DuoNeb, magnesium, metoprolol, Singulair, Narcan, Zofran, Protonix, Paxil, potassium pr otocol, and Senokot. Progress note dated June 21, 2024. 58-year-old male again seen in room 255. In my opinion, the patient is not yet ready to be extubated, despite the fact that he is has some reasonable success with weaning trials. His overall mental status is poor, and he still has issues with secretions. He apparently is scheduled for tracheostomy and PEG tube in the morning. His ventilator settings include volume assist-control, rate 20, tidal volume 500, FiO2 40%, PEEP of 5. Blood gases this morning show pO2 of 94, pCO2 44, pH is 7.47. His CPAP trial was pressure support of 7, CPAP of 5, and 40%. The patient is on saline at KVO, IV heparin, and propofol, at 30 mcg/kg/min. He is getting vital high-protein at 40, which is goal. Current labs include a white count 7.3, hemoglobin 9.5, hematocrit 37.6, and platelet count of 689,000. Sodium 139, potassium 3.9, chlorides 105, CO2 28, BUN 17, creatinine 0.40. Glucose is 110. Calcium is 8.5. Wound cultures were positive for ESBL Escherichia coli. Chest x-ray shows some patchy infiltrates. Patient was seen today on 06/22/2024, remains in the ICU, intubated and mechanically ventilated. Patient is on assist-control rate of 20 tidal volume 500 FiO2 40% and PEEP of 5 ABG showed a pO2 of 69 pCO2 40 0 pH of 7.50. Patient remains on propofol at 40 mcg/kg/min, remains on ertapenem, patient had a PICC line placed today, and he is supposed to have tracheostomy today as already arranged for by Dr. Lopez. Apparently the patient has been failure to wean, this failure was felt to be secondary to significant amount of secretions that the patient had, and also related to mental status/CVA. Again the patient is scheduled to have a PEG tube and tracheostomy today. I am not planning any weaning trials on the patient today. Reviewed all his labs and a chest x- ray.WBC count is 7.7 hemoglobin is 11.8. Basic metabolic profile is relatively normal renal profile is normal chest x-ray showed mild pulmonary vascular conge stion, it also showed some patchy atelectasis or consolidation of the right lung base patient include Lipitor, Dulcolax, Pulmicort, Wellbutrin, Peridex, vitamin D3, Flexeril, farXCIGA, Triptafen-M, iron, Perforomist, Lasix 40 mg p.o. daily, gabapentin, heparin, nebulized Atrovent, NovoLog insulin, Dilaudid, LR, Lopressor, Singulair, Protonix, Paxil, propofol and Senokot. Objective - Vital Signs Vital signs: Vital Signs Temp 98.3 F 06/22/24 08:00 Pulse 91 06/22/24 12:00 Resp 20 06/22/24 12:00 BP 120/95 06/22/24 09:00 Pulse Ox 97 06/22/24 12:00 FiO2 40 06/22/24 11:07 Intake & Output 06/21/24 06/22/24 06/22/24 18:59 06:59 18:59 Intake Total 1512.341 941.757 280.150 Output Total 1245 1525 180 Balance 267.341 -583.243 100.150 Weight 106.3 kg Intake: IV 400 260 100 Ertapenem 1 gm In Sodium 300 Chloride 0.9% 50 ml @ 100 mls/hr IVPB DAILY [facility] Rx #:[id number] Lactated Ringers 1,000 ml 40 260 100 @ 20 mls/hr IV .Q24H [facility] Rx#:[id number] kvo 60 Intake, IV Titration 462.341 451.757 180.150 Amount Heparin Sod,Pork in 0.45% 250 224.433 NaCl 25,000 unit In 0.45 % NaCl 1 250ml.bag @ 8.65 UNITS/KG/HR 9.999 mls/hr IV .Q24H [facility] Rx#: [id number] propofoL 1,000 mg In 212.341 227.324 180.150 Empty Bag 1 bag @ 15 MCG/ KG/MIN 10.305 mls/hr IV . Q9H43M [facility]AN Rx#:[id number] Tube Feeding 440 200 0 Other 210 30 Output: Urine 1245 1525 180 Other: Voiding Method Indwelling Catheter Indwelling Catheter Indwelling Catheter # Bowel Movements 1 ABP, PAP, CO, CI - Last Documented Arterial Blood Pressure 106/58 - Exam General: Ill 58-year-old white male intubated mechanically ventilated. Head: Atraumatic, normocephalic HEENT: PERRLA, EOMI, nonicteric, no neck masses, no JVD, endotracheal tube and orogastric tube are intact. Skin: Skin is warm and dry and no rashes or lesions are noted. Cardiovascular: There is a regular rate and rhythm. No murmur, rub or gallop is appreciated. Respiratory: Diminished breath sounds at the bases with crackles noted. Rhonchi noted. Gastrointestinal: Soft nontender no megaly no rebound no guarding Musculoskeletal: No deformities, patient does have right-sided weakness. Neurological: Could not fully assess, patient is on propofol for Psychiatric: Could not fully assess - Labs CBC & Chem 7: 06/22/24 05:44 06/22/24 05:44 Labs: Abnormal Lab Results - Last 24 Hours (Table) 06/22/24 06/22/24 06/22/24 Range/Units 04:50 05:44 05:44 Hgb 11.8 L (13.0-17.5) gm/dL MCHC 29.9 L (31.0-37.0) g/dL RDW 16.7 H (11.5-15.5) % Plt Count 698 H (150-450) k/uL ABG pH 7.50 H (7.35-7.45) ABG pO2 69 L (83-108) mmHg ABG HCO3 31 H (21-25) mmol/L ABG Total CO2 32 H (19-24) mmol/L Creatinine 0.44 L (0.66-1.25) mg/dL Alkaline Phosphatase 145 H (38-126) U/L Total Protein 5.4 L (6.3-8.2) g/dL Albumin 3.0 L (3.5-5.0) g/dL Assessment and Plan Assessment: Impression: Acute hypoxic respiratory failure, multifactorial secondary to underlying COPD, congestive heart failure with reduced ejection fraction, and suspected atelectasis and possible pneumonia Respiratory fall with L2 vertebral compression fracture Postoperative day #12 following revision of T10 to pelvis decompression and fusion with stabilization Acute left frontal parietal ischemic CVA ESBL E. coli wound infection Recent L2 to pelvis posterior lateral decompression and fusion on 05/19/2024 Congestive heart failure with reduced ejection fraction/acute Chronic atrial fibrillation Benign essential hypertension Dyslipidemia Type 2 diabetes Obesity with BMI of 38.4 Obstructive sleep apnea syndrome Ex-smoker Remote history of prior C2-T2 decompression and fusion Failure to wean mostly because of his excessive secretions from endotracheal tube and because of his overall mental status Recommendation: Continue present supportive care measures Continue ventilatory support Continue nutritional support via PEG tube which will be likely placed today Agree with tracheostomy since multiple trials over the last week have failed to wean the patient Continue GI and DVT prophylaxis Continue antibiotics/enteral For what seems to be ESBL E. coli in the wound/positive wound culture for E. coli Patient just had a PICC line placed today Patient will have tracheostomy and PEG tube placement today Will continue to follow Patient remains critically ill Critical care time is over 30 Time with Patient: Greater than 30
--- NOTE | 2024-06-22 13:22 | P.OP ---
Date of Procedure: 06/22/24 Preoperative Diagnosis: respitory failure Protein calorie malnutrition Postoperative Diagnosis: Same e Procedure(s) Performed: EGD with PEG tube placement Tracheostomy Anesthesia: ILYA Surgeon: Curt Macedo Pathology: none sent Condition: stable Disposition: PACU Description of Procedure: The patient's placed on the bed in the supine position. The patient received general anesthesia. The neck was prepped and draped in usual sterile fashion. A standard transverse skin incision was made approximately 2 cm above the sternal notch. Using electrocautery the subcutaneous tissues were divided. The platysma was divided. A [place] retractor was placed in the wound. Next the strap muscles were divided in the midline. Another weatlander retractor was placed the wound. The pretracheal fat was then divided with left cautery. The trachea was exposed. At this point the [place] advance the and the tracheal tube into the right mainstem bronchus. The balloon was inflated. A tracheotomy was then performed between the second and third tracheal rings. The perivascular tissues a gracilis the trachea. The endotracheal tube was brought back under direct vision. And then the #8 Portex tracheostomy tube was placed into the trachea. End-tidal CO2 was confirmed. The patient had been connected to the ventilator. The patient was ventilated satisfactory. The skin incision site was then closed with 3-0 nylon after the retractors were withdrawn. An umbilical tie was used to secure the tr acheostomy tube. Next the gastroscope placed oropharynx passed in the esophagus and stomach. There is no evidence of any outlet obstruction. Stomach was insufflated with air. The light reflux seen the anterior abdominal wall. The abdomen was prepped and draped usual fashion. The skin was incised. And the needles placed and stomach under direct visualization. The needle was snared. And the wires placed through the needle and the wire was snared and brought the oropharynx. The PEG tube was placed over top the wire brought down to the stomach. The PEG tube was secured. At the 3 cm hodan. The one-piece bolster was used. Patient tolerated procedure well.
[2024-06-22 18:00] LABS: Glucose,Whole Blood 93 mg/dL (70-110)
[2024-06-22 23:30] LABS: Glucose,Whole Blood 91 mg/dL (70-110)
--- NOTE | 2024-06-22 23:56 | PN ---
PROGRESS NOTE SUBJECTIVE: This is a 58-year-old white male status post lumbar fracture, acute on chronic respiratory failure and a stroke during second surgery. Wean off the vent over the last week. He is supposed to get a trach and PEG today. Vital signs reviewed. Pole Peeler notes reviewed. OBJECTIVE: LUNGS: Transmitted upper sounds, scattered wheeze. GI: Soft. CARDIOVASCULAR: S1, S2. HEMATOLOGY: Negative for Homans. PSYCH: Fair mood and affect. He is responding with his head with discussion. He had surgery with Dr. Macedo for EGD with PEG tube with possible tracheostomy today, FiO2 is 40, sat 93 to 99, blood pressure 103/81, respiratory rate 16 to 19, pulse is 91. ASSESSMENT: Status post trach and PEG, CVA with left-sided weakness, frontoparietal lesion from stroke, COPD, hypertension, status post lumbar surgery x2. Prognosis guarded. Continue current treatments. Standard post trach orders. Continue breathing treatments, etc. Prognosis guarded. MMODL / IJN: [id number] /
[2024-06-23 05:28] LABS: Glucose,Whole Blood 121 mg/dL (70-110)
[2024-06-23 05:29] LABS: ABG Base Excess 5.5 mmol/L; ABG HCO3 30 mmol/L (21-25); ABG Oxygen Saturation 94.9 % (94-97); ABG PCO2 41 mmHg (35-45); ABG PH 7.47 (7.35-7.45); ABG PO2 73 mmHg (83-108); ABG TCO2 31 mmol/L (19-24); Allen Test Performed? Yes
[2024-06-23 06:08] LABS: Anisocytosis Slight; Basophils # (A) 0.1 k/uL (0-0.2); Basophils % (A) 1 %; Eosinophils # (A) 0.2 k/uL (0-0.7); Eosinophils % (A) 2 %; HCT 37.5 % (39.0-53.0); HGB 11.7 gm/dL (13.0-17.5); Hypochromasia Marked; Lymphocytes # (A) 0.7 k/uL (1.0-4.8); Lymphocytes % (A) 7 %; MCH 28.1 pg (25.0-35.0); MCHC 31.2 g/dL (31.0-37.0); Monocytes # (A) 0.6 k/uL (0-1.0); Monocytes % (A) 6 %; Neutrophils # (A) 8.5 k/uL (1.3-7.7); Neutrophils % (A) 83 %; Platelet Count 606 k/uL (150-450); RBC 4.17 m/uL (4.30-5.90); RDW 16.7 % (11.5-15.5); WBC 10.2 k/uL (3.8-10.6)
[2024-06-23 06:30] LABS: African American GFR (CKD) >90 (>60 ml/min/1.73 sqM); Anion Gap 5 mmol/L; Blood Urea Nitrogen 16 mg/dL (9-20); Calcium 8.7 mg/dL (8.4-10.2); Carbon Dioxide 26 mmol/L (22-30); Chloride 104 mmol/L (98-107); Glucose 85 mg/dL (74-99); Magnesium 1.9 mg/dL (1.6-2.3); Non-African American GFR(CKD) >90 (>60 ml/min/1.73 sqM); Potassium 4.1 mmol/L (3.5-5.1); Sodium 135 mmol/L (137-145)
--- NOTE | 2024-06-23 07:57 | XR ---
EXAMINATION TYPE: XR chest 1V portable DATE OF EXAM: 06/23/2024 COMPARISON: 12/23/2023 HISTORY: SOB, Follow Up FINDINGS: Tracheostomy tube as well as left sided PICC line are unchanged. Endotracheal tube has been as has NG tube. No change in bibasilar opacities. Stable appearance of the cardio-mediastinal structures at this time. Pleural effusion unchanged. IMPRESSION: 1. Stable portable chest. Clinical correlation and follow up until resolution is recommended.
[2024-06-23] MEDS: ACETAMINOPHEN TAB 325 MG TAB PO PRN (08:38)
[2024-06-23] MEDS: RIVAROXABAN 10 MG TAB PO STA (09:40)
--- NOTE | 2024-06-23 11:05 | P.PN ---
Subjective Progress Note Date: 06/23/24 HPI 58-year-old male with multiple comorbidities known to Dr. Menard. Cardiology was consulted for perioperative clearance initially after patient suffered a mechanical fall and suffered a lumbar spine fracture. Patient thereafter underwent a L1 L2 fracture and diversion of T10 through pelvic decompression and fusion with stabilization. Patient was thereafter transferred to ICU and was maintained on ventilator support. Patient had difficulty getting weaned off ventilator support. There was a concern of possible stroke postoperatively. Patient's initial echocardiogram showed severe cardiomyopathy with EF of 25 to 30%. Repeat echocardiogram after stroke showed an EF of 45% with no evidence of LV thrombus. Patient also maintained to have persistent atrial fibrillation. June 23, 2024 Cardiology was reconsulted today because patient was having labile blood pressure and heart rates. Patient is post trach and PEG, and postoperatively patient had lower blood pressure and more agitation. For this his propofol was increased. After increasing propofol patient's blood pressure dropped for which she was placed on norepinephrine. Since being placed on norepinephrine he is having a labile heart rate of around 110 bpm. PHYSICAL EXAMINATION BP 99/60, heart rate 110s, atrial fibrillation, Cardiac exam S1-S2 is audible, no significant murmurs appreciated Lung exam: On vent support, mild crackles audible in bilateral lung simentla, no significant rhonchi or wheezing Neurological exam: No detailed exam was performed as patient is on propofol IMPRESSION: Atrial fibrillation with RVR Labile blood pressure, currently on norepinephrine, multifactorial from low EF, propofol use, postop state S/p trach and PEG S/p mechanical fall, s/p lumbar surgery Recent revision of L2 to pelvis posterior lateral decompression and fusion with bilateral open SI joint fusions on 05/19/2024 Hardware failure of L2-L3, status post L1-L2 revision and T10 through pelvis decompression and fusion Hyperlipidemia Diabetes Cardiomyopathy, unspecified type, EF 25 to 30% PLAN: Continue metoprolol 100 mg twice daily. Use norepinephrine to minimum. See if we can cut down on propofol, and that we will be able to wean him down off norepinephrine. As norepinephrine will be reduced his heart rate will be better controlled. Maintain potassium at 4, magnesium at 2, make sure patient is not getting acidotic Continue supportive ICU care Continue anticoagulation with Afua Martino MD, FACC, RPVI Thank you for allowing [facility] to participate in this patient's care. Please contact us in case of any followup questions. Objective - Vital Signs Vital signs: Vital Signs Temp 99.4 F 06/23/24 10:00 Pulse 120 H 06/23/24 10:00 Resp 17 06/23/24 10:00 BP 82/66 06/23/24 10:00 Pulse Ox 94 L 06/23/24 10:00 FiO2 60 06/23/24 09:00 Intake & Output 06/22/24 06/23/24 06/23/24 18:59 06:59 18:59 Intake Total 539.538 692.660 230 Output Total 500 790 100 Balance 39.538 -97.340 130 Weight 105 kg 105 kg Intake: IV 220 240 130 Ertapenem 1 gm In Sodium 50 Chloride 0.9% 50 ml @ 100 mls/hr IVPB DAILY [facility] Rx #:[id number] Lactated Ringers 1,000 ml 220 240 80 @ 20 mls/hr IV .Q24H [facility] Rx#:[id number] Intake, IV Titration 319.538 452.660 100 Amount propofoL 1,000 mg In 319.538 452.660 100 Empty Bag 1 bag @ 15 MCG/ KG/MIN 10.305 mls/hr IV . Q9H43M [facility] Rx#:[id number] Tube Feeding 0 0 0 Output: Urine 495 790 100 Estimated Blood Loss 5 Other: Voiding Method Indwelling Catheter Indwelling Catheter Indwelling Catheter ABP, PAP, CO, CI - Last Documented Arterial Blood Pressure 106/58 - Labs CBC & Chem 7: 06/23/24 05:14 06/23/24 05:14 Labs: Abnormal Lab Results - Last 24 Hours (Table) 06/23/24 06/23/24 06/23/24 Range/Units 05:14 05:14 05:26 RBC 4.17 L (4.30-5.90) m/uL Hgb 11.7 L (13.0-17.5) gm/dL Hct 37.5 L (39.0-53.0) % RDW 16.7 H (11.5-15.5) % Plt Count 606 H (150-450) k/uL Neutrophils # 8.5 H (1.3-7.7) k/uL Lymphocytes # 0.7 L (1.0-4.8) k/uL ABG pH (7.35-7.45) ABG pO2 (83-108) mmHg ABG HCO3 (21-25) mmol/L ABG Total CO2 (19-24) mmol/L Sodium 135 L (137-145) mmol/L Creatinine 0.41 L (0.66-1.25) mg/dL POC Glucose (mg/dL) 121 H (70-110) mg/dL 06/23/24 Range/Units 05:28 RBC (4.30-5.90) m/uL Hgb (13.0-17.5) gm/dL Hct (39.0-53.0) % RDW (11.5-15.5) % Plt Count (150-450) k/uL Neutrophils # (1.3-7.7) k/uL Lymphocytes # (1.0-4.8) k/uL ABG pH 7.47 H (7.35-7.45) ABG pO2 73 L (83-108) mmHg ABG HCO3 30 H (21-25) mmol/L ABG Total CO2 31 H (19-24) mmol/L Sodium (137-145) mmol/L Creatinine (0.66-1.25) mg/dL POC Glucose (mg/dL) (70-110) mg/dL
[2024-06-23 11:19] LABS: Glucose,Whole Blood 118 mg/dL (70-110)
--- NOTE | 2024-06-23 12:41 | P.PN ---
Subjective Progress Note Date: 06/23/24 Principal diagnosis: L2 vertebral body compression fracture, postoperative day #13 acute CVA Patient is a 58-year-old white male with past medical history significant for obstructive sleep apnea with home CPAP, COPD, ex tobacco smoker, marijuana smoker, atrial fibrillation with previous cardioversion and anticoagulated on Xarelto, diabetes mellitus, hypertension, heart failure, and previous spinal surgeries. His primary care provider is Dr. Deuce rBito. He is currently intubated to the mechanical ventilator, unable to provide any information for HPI. Of note, patient recently underwent an L2 to pelvis posterior lateral decompression and fusion on 05/19/2024 at [facility]. During this admission, he initially was recovered in the intensive care unit. Technically, difficult to extubate, and did require BiPAP support immediately after extubation. He was eventually discharged home on 05/26/2024. Patient returned the emergency department on 06/06/2024. On review of the ER documentation, he had a fall while at home. CT of the lumbar spine demonstrated new compression fracture of L2 vertebral body with compression of the vertebral body down to the pedicle screws bilaterally and loosening the left pedicle screw. New left pedicle/transverse process of L2 and L3 fractures around the hardware with mild displacement. Fractures of the right transverse process of L2 and L3. Likely postsurgical subcutaneous gas in the surgical bed. Patient underwent revision thoracic T10 to pelvis decompression fusion yesterday. Intraoperatively, patient had an EBL of 1 L. He has received a total of 5 units of PRBCs, 1 FFP, and 1 pack platelets. He was sent to the intensive care unit postoperatively. He remains on the mechanical ventilator. Chest x-ray shows the endotracheal tube approximately 4.3 cm above the shashank. There is cardiomegaly with pulmon sylvia vascular congestion suggested. No pleural effusions, pneumothoraces, focal consolidations. Initial ABG had a PaO2 of 80, pCO2 of 61, pH of 7.27. This was done on original ventilator settings of assist-control, respiratory rate 14, tidal volume 500, FiO2 1 9%, and PEEP of 5. My supervising physician is already increased the patient's respiratory rate to 20. He is currently synchronous with mechanical ventilator. There is a moderate amount of clear to white endotracheal secretions. Peak pressures 23. He is sedated with propofol which is currently infusing at 50 mcg/kg/min. He is fairly unarousable. Will withdraw to painful stimuli in all 4 extremities. There is also norepinephrine infusing at 0.02 mcg/kg/min. There is a MAP goal of 80 mmHg to support [employer] perfusion. LR is infusing at 10 MLS per hour. There is a Hemovac with a total of 220 serosanguineous output since surgery. We are awaiting postoperative labs. Preoperatively, CBC: WBC count 9.4, hemoglobin 9.6, hematocrit 32.5, platelets 516. Preoperative CMP: Sodium 137, potassium 4.1, chloride 104, serum bicarb 27, BUN 18, creatinine 0.61, glucose 143. LFTs unremarkable. Receiving prophylactic cefazolin. Note that preoperatively, patient did have a cardiac evaluation. Repeat echocardiogram shows a severely reduced left ventricular ejection fraction of 25 to 30% as well as mild mitral and tricuspid regurgit ation. Heart rhythm is atrial fibrillation with controlled ventricular response. Normally anticoagulated on Xarelto, however, this is on hold for surgery. Progress note dated June 20, 2024. 58-year-old male seen in room 255. The patient remains critically ill on the mechanical ventilator. Ventilator settings include volume assist-control, rate 20, tidal volume 500, FiO2 40%, PEEP of 5. Blood gases are currently pending. Patient continues on heparin via weight-based protocol, and tube feedings. In addition, the patient remains on propofol at 20 mcg/kg/min. Current laboratory data from June 20 are pending. Patient is able to tolerate. Pressure support and CPAP. Because of his poor mental status from a CVA, and airway secretions, it has been decided not to extubate the patient. Rather, the patient will have a tracheostomy and PEG tube placed on Saturday. Labs, x-rays, and all medications are reviewed. The patient also continues on ertapenem, for his ESBL Escherichia coli. Current medications include vitamin C, Lipitor, Dulcolax, Pulmicort, Wellbutrin, chlorhexidine, vitamin D3, Flexeril, Farxiga, ertapenem, ferrous sulfate, formoterol, Lasix, Neurontin, heparin, Dilaudid, insulin, DuoNeb, magnesium, metoprolol, Singulair, Narcan, Zofran, Protonix, Paxil, potassium pro tocol, and Senokot. Progress note dated June 21, 2024. 58-year-old male again seen in room 255. In my opinion, the patient is not yet ready to be extubated, despite the fact that he is has some reasonable success with weaning trials. His overall mental status is poor, and he still has issues with secretions. He apparently is scheduled for tracheostomy and PEG tube in the morning. His ventilator settings include volume assist-control, rate 20, tidal volume 500, FiO2 40%, PEEP of 5. Blood gases this morning show pO2 of 94, pCO2 44, pH is 7.47. His CPAP trial was pressure support of 7, CPAP of 5, and 40%. The patient is on saline at KVO, IV heparin, and propofol, at 30 mcg/kg/min. He is getting vital high-protein at 40, which is goal. Current labs include a white count 7.3, hemoglobin 9.5, hematocrit 37.6, and platelet count of 689,000. Sodium 139, potassium 3.9, chlorides 105, CO2 28, BUN 17, creatinine 0.40. Glucose is 110. Calcium is 8.5. Wound cultures were positive for ESBL Escherichia coli. Chest x-ray shows some patchy infiltrates. Patient was seen today on 06/22/2024, remains in the ICU, intubated and mechanically ventilated. Patient is on assist-control rate of 20 tidal volume 500 FiO2 40% and PEEP of 5 ABG showed a pO2 of 69 pCO2 40 0 pH of 7.50. Patient remains on propofol at 40 mcg/kg/min, remains on ertapenem, patient had a PICC line placed today, and he is supposed to have tracheostomy today as already arranged for by Dr. Lopez. Apparently the patient has been failure to wean, this failure was felt to be secondary to significant amount of secretions that the patient had, and also related to mental status/CVA. Again the patient is scheduled to have a PEG tube and tracheostomy today. I am not planning any weaning trials on the patient today. Reviewed all his labs and a chest x- ray.WBC count is 7.7 hemoglobin is 11.8. Basic metabolic profile is relatively normal renal profile is normal chest x-ray showed mild pulmonary vascular conges tion, it also showed some patchy atelectasis or consolidation of the right lung base patient include Lipitor, Dulcolax, Pulmicort, Wellbutrin, Peridex, vitamin D3, Flexeril, farXCIGA, Triptafen-M, iron, Perforomist, Lasix 40 mg p.o. daily, gabapentin, heparin, nebulized Atrovent, NovoLog insulin, Dilaudid, LR, Lopressor, Singulair, Protonix, Paxil, propofol and Senokot. Patient was evaluated today on 06/23/24, patient is now status post tracheostomy, PEG tube placement, PICC line placement, remains on the vent, seems to be now synchronous with the ventilator, and I had to increase his propofol. His gases are marginal with a pO2 of 73 pCO2 41 pH of 7.47 his O2 saturation is marginal and he is on assist-control rate of 20 tidal volume 500 FiO2 60% PEEP of 5 which I increased to 8. Patient is on propofol at 50 mcg/kg/min, increased to 75 mcg/kg/min. Remains on Invanz remains on enteral feeding, and this will be restarted today via PEG tube. Considering the gases considering the chest x-ray and considering the overall clinical appearance of the patient, I do not believe he is ready to be weaned, actually the patient needs more sedation to make sure that he is synchronous with the ventilator. WBC count is 10.2 hemoglobin 11.7 electrolytes are normal, renal profile is normal. Chest x-ray showed tracheostomy in proper position, slight opacities persist. Mostly atelectasis, possible pneumonia Objective - Vital Signs Vital signs: Vital Signs Temp 99.4 F 06/23/24 10:00 Pulse 120 H 06/23/24 11:41 Resp 17 06/23/24 10:00 BP 82/66 06/23/24 10:00 Pulse Ox 94 L 06/23/24 10:00 FiO2 50 06/23/24 11:03 Intake & Output 06/22/24 06/23/24 06/23/24 18:59 06:59 18:59 Intake Total 539.538 692.660 325.321 Output Total 500 790 100 Balance 39.538 -97.340 225.321 Weight 105 kg 105 kg Intake: IV 220 240 130 Ertapenem 1 gm In Sodium 50 Chloride 0.9% 50 ml @ 100 mls/hr IVPB DAILY [facility] Rx #:[id number] Lactated Ringers 1,000 ml 220 240 80 @ 20 mls/hr IV .Q24H [facility] Rx#:[id number] Intake, IV Titration 319.538 452.660 195.321 Amount propofoL 1,000 mg In 319.538 452.660 195.321 Empty Bag 1 bag @ 15 MCG/ KG/MIN 10.305 mls/hr IV . Q9H43M [facility] Rx#:[id number] Tube Feeding 0 0 0 Output: Urine 495 790 100 Estimated Blood Loss 5 Other: Voiding Method Indwelling Catheter Indwelling Catheter Indwelling Catheter ABP, PAP, CO, CI - Last Documented Arterial Blood Pressure 106/58 - Exam General: Ill 58-year-old white male intubated mechanically ventilated. Head: Atraumatic, normocephalic HEENT: PERRLA, EOMI, nonicteric, no neck masses, no JVD, gastric tube is intact. Skin: Skin is warm and dry and no rashes or lesions are noted. Cardiovascular: Irregular rhythm, no S3 gallop, 2/6 systolic murmur throughout the precordium Respiratory: Diminished breath sounds at the bases with crackles noted. Rhonchi noted. Gastrointestinal: Soft nontender no megaly no rebound no guarding new PEG tube is noted. Seems to be intact Musculoskeletal: No deformities, patient does have right-sided weakness. Neurological: Could not fully assess, sedated, on propofol Psychiatric: Could not fully assess - Labs CBC & Chem 7: 06/23/24 05:14 06/23/24 05:14 Labs: Abnormal Lab Results - Last 24 Hours (Table) 06/23/24 06/23/24 06/23/24 Range/Units 05:14 05:14 05:26 RBC 4.17 L (4.30-5.90) m/uL Hgb 11.7 L (13.0-17.5) gm/dL Hct 37.5 L (39.0-53.0) % RDW 16.7 H (11.5-15.5) % Plt Count 606 H (150-450) k/uL Neutrophils # 8.5 H (1.3-7.7) k/uL Lymphocytes # 0.7 L (1.0-4.8) k/uL ABG pH (7.35-7.45) ABG pO2 (83-108) mmHg ABG HCO3 (21-25) mmol/L ABG Total CO2 (19-24) mmol/L Sodium 135 L (137-145) mmol/L Creatinine 0.41 L (0.66-1.25) mg/dL POC Glucose (mg/dL) 121 H (70-110) mg/dL 06/23/24 06/23/24 Range/Units 05:28 11:17 RBC (4.30-5.90) m/uL Hgb (13.0-17.5) gm/dL Hct (39.0-53.0) % RDW (11.5-15.5) % Plt Count (150-450) k/uL Neutrophils # (1.3-7.7) k/uL Lymphocytes # (1.0-4.8) k/uL ABG pH 7.47 H (7.35-7.45) ABG pO2 73 L (83-108) mmHg ABG HCO3 30 H (21-25) mmol/L ABG Total CO2 31 H (19-24) mmol/L Sodium (137-145) mmol/L Creatinine (0.66-1.25) mg/dL POC Glucose (mg/dL) 118 H (70-110) mg/dL Assessment and Plan Assessment: Impression: Acute hypoxic respiratory failure, multifactorial secondary to underlying COPD, congestive heart failure with reduced ejection fraction, and suspected atelectasis and possible pneumonia Respiratory fall with L2 vertebral compression fracture Postoperative day # 1 3 following revision of T10 to pelvis decompression and fusion with stabilization Acute left frontal parietal ischemic CVA ESBL E. coli wound infection, remains on Invanz Recent L2 to pelvis posterior lateral decompression and fusion on 05/19/2024 Congestive heart failure with reduced ejection fraction/acute Chronic atrial fibrillation Benign essential hypertension Dyslipidemia Type 2 diabetes Obesity with BMI of 38.4 Obstructive sleep apnea syndrome Ex-smoker Remote history of prior C2-T2 decompression and fusion Failure to wean status post tracheostomy on 06/22/2024 Recommendation: Patient is not ready for any form of weaning at this point. Continue present supportive care measures Continue ventilatory support Continue nutritional support via PEG Continue tracheostomy care Continue GI and DVT prophylaxis Continue antibiotics/enteral For what seems to be ESBL E. coli in the wound/positive wound culture for E. coli Will continue to follow Patient remains critically ill Critical care time is over 30 Time with Patient: Greater than 30
--- NOTE | 2024-06-23 13:14 | P.PN ---
Subjective Progress Note Date: 06/23/24 CHIEF COMPLAINT: Fall HISTORY OF PRESENT ILLNESS: Patient remains in the ICU intubated and on mechanical ventilation. Patient admitted to the fall and had to have revision of his back surgery. He also had a subacute stroke. Patient postop day 1 status post tracheostomy and PEG tube placement. Patient has been tachycardic PHYSICAL EXAM: VITAL SIGNS: Reviewed. GENERAL: no acute distress. Neck: Tracheostomy site with some secretions noted ABDOMEN: Soft. Nondistended. Nontender. PEG tube site clean dry and intact ASSESSMENT: 1. Respiratory failure. Difficulty weaning from the vent 2. Moderate protein calorie malnutrition 3. Status post revision of spinal surgery 4. CVA PLAN: -Consult dietitian to start tube feeds this afternoon -Okay to resume Xarelto -Continue supportive care Physician [employer] Manager note has been reviewed by physician. Signing provider agrees with the documented findings, assessment, and plan of care. Objective - Vital Signs Vital signs: Vital Signs Temp 99.4 F 06/23/24 10:00 Pulse 120 H 06/23/24 11:41 Resp 17 06/23/24 10:00 BP 82/66 06/23/24 10:00 Pulse Ox 94 L 06/23/24 10:00 FiO2 50 06/23/24 11:03 Intake & Output 06/22/24 06/23/24 06/23/24 18:59 06:59 18:59 Intake Total 539.538 692.660 325.321 Output Total 500 790 100 Balance 39.538 -97.340 225.321 Weight 105 kg 105 kg Intake: IV 220 240 130 Ertapenem 1 gm In Sodium 50 Chloride 0.9% 50 ml @ 100 mls/hr IVPB DAILY [facility] Rx #:[id number] Lactated Ringers 1,000 ml 220 240 80 @ 20 mls/hr IV .Q24H [facility] Rx#:[id number] Intake, IV Titration 319.538 452.660 195.321 Amount propofoL 1,000 mg In 319.538 452.660 195.321 Empty Bag 1 bag @ 15 MCG/ KG/MIN 10.305 mls/hr IV . Q9H43M [facility] Rx#:[id number] Tube Feeding 0 0 0 Output: Urine 495 790 100 Estimated Blood Loss 5 Other: Voiding Method Indwelling Catheter Indwelling Catheter Indwelling Catheter ABP, PAP, CO, CI - Last Documented Arterial Blood Pressure 106/58 - Labs CBC & Chem 7: 06/23/24 05:14 06/23/24 05:14 Labs: Abnormal Lab Results - Last 24 Hours (Table) 06/23/24 06/23/24 06/23/24 Range/Units 05:14 05:14 05:26 RBC 4.17 L (4.30-5.90) m/uL Hgb 11.7 L (13.0-17.5) gm/dL Hct 37.5 L (39.0-53.0) % RDW 16.7 H (11.5-15.5) % Plt Count 606 H (150-450) k/uL Neutrophils # 8.5 H (1.3-7.7) k/uL Lymphocytes # 0.7 L (1.0-4.8) k/uL ABG pH (7.35-7.45) ABG pO2 (83-108) mmHg ABG HCO3 (21-25) mmol/L ABG Total CO2 (19-24) mmol/L Sodium 135 L (137-145) mmol/L Creatinine 0.41 L (0.66-1.25) mg/dL POC Glucose (mg/dL) 121 H (70-110) mg/dL 06/23/24 06/23/24 Range/Units 05:28 11:17 RBC (4.30-5.90) m/uL Hgb (13.0-17.5) gm/dL Hct (39.0-53.0) % RDW (11.5-15.5) % Plt Count (150-450) k/uL Neutrophils # (1.3-7.7) k/uL Lymphocytes # (1.0-4.8) k/uL ABG pH 7.47 H (7.35-7.45) ABG pO2 73 L (83-108) mmHg ABG HCO3 30 H (21-25) mmol/L ABG Total CO2 31 H (19-24) mmol/L Sodium (137-145) mmol/L Creatinine (0.66-1.25) mg/dL POC Glucose (mg/dL) 118 H (70-110) mg/dL
--- NOTE | 2024-06-23 15:06 | P.PN ---
Subjective Progress Note Date: 06/22/24 Principal diagnosis: Reason for follow-up is lumbar surgical site infection ESBL E. coli Patient is a 58-year-old male with a past medical history significant for diabetes mellitus hypertension COPD atrial fibrillation sleep apnea initially presented to hospital with back pain has been diagnosed with L1-L3 fracture status post extensive surgery and surgical cultures came back positive with ESBL E. coli prompted this consultation. On today's evaluation that is 06/22/2024, the patient continues to be afebrile, the patient is o on the ventilator FiO2 is currently stable at 40% no significant purulent secretion through the ET patient tolerating his tube feed no diet has been reported patient is scheduled for PEG and tracheostomy Patient white count is 7.7 creatinine 0.44 Objective - Vital Signs Vital signs: Vital Signs Temp 98.3 F 06/22/24 08:00 Pulse 91 06/22/24 12:00 Resp 20 06/22/24 12:00 BP 120/95 06/22/24 09:00 Pulse Ox 97 06/22/24 12:00 FiO2 40 06/22/24 11:07 Intake & Output 06/21/24 06/22/24 06/22/24 18:59 06:59 18:59 Intake Total 1512.341 941.757 280.150 Output Total 1245 1525 180 Balance 267.341 -583.243 100.150 Weight 106.3 kg Intake: IV 400 260 100 Ertapenem 1 gm In Sodium 300 Chloride 0.9% 50 ml @ 100 mls/hr IVPB DAILY [facility] Rx #:[id number] Lactated Ringers 1,000 ml 40 260 100 @ 20 mls/hr IV .Q24H [facility] Rx#:[id number] kvo 60 Intake, IV Titration 462.341 451.757 180.150 Amount Heparin Sod,Pork in 0.45% 250 224.433 NaCl 25,000 unit In 0.45 % NaCl 1 250ml.bag @ 8.65 UNITS/KG/HR 9.999 mls/hr IV .Q24H [facility] Rx#: [id number] propofoL 1,000 mg In 212.341 227.324 180.150 Empty Bag 1 bag @ 15 MCG/ KG/MIN 10.305 mls/hr IV . Q9H43M [facility] Rx#:[id number] Tube Feeding 440 200 0 Other 210 30 Output: Urine 1245 1525 180 Other: Voiding Method Indwelling Catheter Indwelling Catheter Indwelling Catheter # Bowel Movements 1 ABP, PAP, CO, CI - Last Documented Arterial Blood Pressure 106/58 - Exam GENERAL DESCRIPTION: Middle-age male intubated on the vent RESPIRATORY SYSTEM: Unlabored breathing , decreased breath sounds at bases HEART: S1 S2 regular rate and rhythm , ABDOMEN: Soft , no tenderness EXTREMITIES: No edema feet - Labs CBC & Chem 7: 06/23/24 05:14 06/23/24 05:14 Labs: Abnormal Lab Results - Last 24 Hours (Table) 06/22/24 06/22/24 06/22/24 Range/Units 04:50 05:44 05:44 Hgb 11.8 L (13.0-17.5) gm/dL MCHC 29.9 L (31.0-37.0) g/dL RDW 16.7 H (11.5-15.5) % Plt Count 698 H (150-450) k/uL ABG pH 7.50 H (7.35-7.45) ABG pO2 69 L (83-108) mmHg ABG HCO3 31 H (21-25) mmol/L ABG Total CO2 32 H (19-24) mmol/L Creatinine 0.44 L (0.66-1.25) mg/dL Alkaline Phosphatase 145 H (38-126) U/L Total Protein 5.4 L (6.3-8.2) g/dL Albumin 3.0 L (3.5-5.0) g/dL Assessment and Plan (1) Surgical site infection Current Visit: Yes Status: Acute Priority: High Code(s): T81.49XA - INFECTION FOLLOWING A PROCEDURE, OTHER SURGICAL SITE, INIT SNOMED Code(s): 25821867 (2) Infection due to ESBL-producing Escherichia coli Current Visit: Yes Status: Acute Priority: High Code(s): A49.8 - OTHER BA CTERIAL INFECTIONS OF UNSPECIFIED SITE; Z16.12 - EXTENDED SPECTRUM BETA LACTAMASE (ESBL) RESISTANCE SNOMED Code(s): 628979255 Plan: 1patient presented to the hospital with back pain more than a week ago from initial evaluation in this patient who did have extensive lumbosacral spine surgery now has been taken back to the OR noticed to have hardware failure fracture of the vertebra s/p redo surgery and culture which has been finalized as ESBL E. coli 2-patient remains to be afebrile white count has been normal blood sputum culture has been negative 3patient is currently waiting for trach and PEG, will continue the patient on Invanz and monitor clinical course closely Dictation was produced using [employer] dictation software. please excuse any grammatical, word or spelling errors. Time with Patient: Less than 30
--- NOTE | 2024-06-23 15:07 | P.PN ---
Subjective Progress Note Date: 06/23/24 Principal diagnosis: Reason for follow-up is lumbar surgical site infection ESBL E. coli Patient is a 58-year-old male with a past medical history significant for diabetes mellitus hypertension COPD atrial fibrillation sleep apnea initially presented to hospital with back pain has been diagnosed with L1-L3 fracture status post extensive surgery and surgical cultures came back positive with ESBL E. coli prompted this consultation.Patient is status post tracheostomy and PEG tube completed on 06/22/2024. On today's evaluation that is 06/23/2024, Patient is afebrile patient is currently on ventilator through the trach FiO2 at 50% no significant purulent secretions through the ET and no diarrhea has been reported. Patient white count is 10.2 creatinine 0.41 Objective - Vital Signs Vital signs: Vital Signs Temp 99.4 F 06/23/24 10:00 Pulse 120 H 06/23/24 11:41 Resp 17 06/23/24 10:00 BP 82/66 06/23/24 10:00 Pulse Ox 94 L 06/23/24 10:00 FiO2 50 06/23/24 11:03 Intake & Output 06/22/24 06/23/24 06/23/24 18:59 06:59 18:59 Intake Total 539.538 692.660 325.321 Output Total 500 790 100 Balance 39.538 -97.340 225.321 Weight 105 kg 105 kg Intake: IV 220 240 130 Ertapenem 1 gm In Sodium 50 Chloride 0.9% 50 ml @ 100 mls/hr IVPB DAILY [facility] Rx #:[id number] Lactated Ringers 1,000 ml 220 240 80 @ 20 mls/hr IV .Q24H [facility] Rx#:[id number] Intake, IV Titration 319.538 452.660 195.321 Amount propofoL 1,000 mg In 319.538 452.660 195.321 Empty Bag 1 bag @ 15 MCG/ KG/MIN 10.305 mls/hr IV . Q9H43M [facility] Rx#:[id number] Tube Feeding 0 0 0 Output: Urine 495 790 100 Estimated Blood Loss 5 Other: Voiding Method Indwelling Catheter Indwelling Catheter Indwelling Catheter ABP, PAP, CO, CI - Last Documented Arterial Blood Pressure 106/58 - Exam GENERAL DESCRIPTION: Middle-age male intubated on the vent RESPIRATORY SYSTEM: Unlabored breathing , decreased breath sounds at bases HEART: S1 S2 regular rate and rhythm , ABDOMEN: Soft , no tenderness EXTREMITIES: No edema feet - Labs CBC & Chem 7: 06/23/24 05:14 06/23/24 05:14 Labs: Abnormal Lab Results - Last 24 Hours (Table) 06/23/24 06/23/24 06/23/24 Range/Units 05:14 05:14 05:26 RBC 4.17 L (4.30-5.90) m/uL Hgb 11.7 L (13.0-17.5) gm/dL Hct 37.5 L (39.0-53.0) % RDW 16.7 H (11.5-15.5) % Plt Count 606 H (150-450) k/uL Neutrophils # 8.5 H (1.3-7.7) k/uL Lymphocytes # 0.7 L (1.0-4.8) k/uL ABG pH (7.35-7.45) ABG pO2 (83-108) mmHg ABG HCO3 (21-25) mmol/L ABG Total CO2 (19-24) mmol/L Sodium 135 L (137-145) mmol/L Creatinine 0.41 L (0.66-1.25) mg/dL POC Glucose (mg/dL) 121 H (70-110) mg/dL 06/23/24 06/23/24 Range/Units 05:28 11:17 RBC (4.30-5.90) m/uL Hgb (13.0-17.5) gm/dL Hct (39.0-53.0) % RDW (11.5-15.5) % Plt Count (150-450) k/uL Neutrophils # (1.3-7.7) k/uL Lymphocytes # (1.0-4.8) k/uL ABG pH 7.47 H (7.35-7.45) ABG pO2 73 L (83-108) mmHg ABG HCO3 30 H (21-25) mmol/L ABG Total CO2 31 H (19-24) mmol/L Sodium (137-145) mmol/L Creatinine (0.66-1.25) mg/dL POC Glucose (mg/dL) 118 H (70-110) mg/dL Assessment and Plan (1) Surgical site infection Current Visit: Yes Status: Acute Priority: High Code(s): T81.49XA - INFECTION FOLLOWING A PROCEDURE, OTHER SURGICAL SITE, INIT SNOMED Code(s): 42038026 (2) Infection due to ESBL-producing Escherichia coli Current Visit: Yes Status: Acute Priority: High Code(s): A49.8 - OTHER BACTERIAL INFECTIONS OF UNSPECIFIED SITE; Z16.12 - EXTENDED SPECTRUM BETA LACTAMASE (ESBL) RESISTANCE SNOMED Code(s): 453641406 Plan: 1patient presented to the hospital with back pain more than a week ago from initial evaluation in this patient who did have extensive lumbosacral spine surgery now has been taken back to the OR noticed to have hardware failure fracture of the vertebra s/p redo surgery and culture which has been finalized as ESBL E. coli 2-patient remains to be afebrile white count has been normal blood sputum culture has been negative 3patient is s/p for trach and PEG completed on 06/22/2024, 4-patient is currently covered with [employer], plan is for total 6-week course of therapy and monitor clinical course closely Dictation was produced using [email or web address] dictation software. please excuse any grammatical, word or spelling errors. Time with Patient: Less than 30
[2024-06-23 17:24] LABS: Glucose,Whole Blood 96 mg/dL (70-110)
[2024-06-23 17:50] LABS: Glucose,Whole Blood 97 mg/dL (70-110)
--- NOTE | 2024-06-23 20:02 | P.PN ---
Subjective Progress Note Date: 06/23/24 Principal diagnosis: Hardware failure lumbar spine L2-L3 fracture History of recent [id number] decompression and fusion and open bilateral SI joint fusion Late Entry: Pateint seen at 0700 Patient seen and examined this morning in the ICU. Patient remains on mechanical ventilation. VSS. PAtient has had placement of tracheostomy and PEG tube. Dr. Jeffrey at bedside. Physician attempted to communicate with patient and patient SPO2 decreased to 82% RN at bedside and provided patient with 2 minute cycle of 100% O2. Patient did recover over a few minutes to SPO2 of 92%. Patient was not stable at this time to turn and examine thoracolumbar incision. We will attempt again tomorrow to change dressing and possible remove sutures. Continue with Neuro checks and to turn and reposition patient every 2hrs to decrease pres sure on wound and allow air to his back. Objective - Vital Signs Vital signs: Vital Signs Temp 99.2 F 06/23/24 16:00 Pulse 87 06/23/24 19:00 Resp 18 06/23/24 19:00 BP 99/71 06/23/24 19:00 Pulse Ox 97 06/23/24 19:00 FiO2 50 06/23/24 16:00 Intake & Output 06/23/24 06/23/24 06/24/24 06:59 18:59 06:59 Intake Total 692.660 991.920 30 Output Total 790 1520 100 Balance -97.340 -528.080 -70 Weight 105 kg 105 kg Intake: IV 240 290 20 Ertapenem 1 gm In Sodium 50 Chloride 0.9% 50 ml @ 100 mls/hr IVPB DAILY [facility] Rx #:[id number] Lactated Ringers 1,000 ml 240 240 20 @ 20 mls/hr IV .Q24H [facility] Rx#:[id number] Intake, IV Titration 452.660 561.920 Amount Norepinephrine 4 mg In 66.599 Sodium Chloride 0.9% 250 ml @ 0.03 MCG/KG/MIN 13. 087 mls/hr IV .[id number] [facility] Rx#:[id number] propofoL 1,000 mg In 452.660 495.321 Empty Bag 1 bag @ 75 MCG/ KG/MIN 51.525 mls/hr IV . Q1H57M [facility] Rx#:[id number] Tube Feeding 0 80 10 Other 60 Output: Urine 790 1520 100 Other: Voiding Method Indwelling Catheter Indwelling Catheter ABP, PAP, CO, CI - Last Documented Arterial Blood Pressure 106/58 - Exam Physical Examination General: The patient is on mechanical ventilation, bilateral upper extremities are restrained at this time to protect airway and lines. Patient does open his eyes slightly to verbal stimuli. Skin: Skin is warm and dry with no obvious rashes or lesions. Surgical incision to the thoracolumbar spine. - Labs CBC & Chem 7: 06/23/24 05:14 06/23/24 05:14 Labs: Abnormal Lab Results - Last 24 Hours (Table) 06/23/24 06/23/24 06/23/24 Range/Units 05:14 05:14 05:26 RBC 4.17 L (4.30-5.90) m/uL Hgb 11.7 L (13.0-17.5) gm/dL Hct 37.5 L (39.0-53.0) % RDW 16.7 H (11.5-15.5) % Plt Count 606 H (150-450) k/uL Neutrophils # 8.5 H (1.3-7.7) k/uL Lymphocytes # 0.7 L (1.0-4.8) k/uL ABG pH (7.35-7.45) ABG pO2 (83-108) mmHg ABG HCO3 (21-25) mmol/L ABG Total CO2 (19-24) mmol/L Sodium 135 L (137-145) mmol/L Creatinine 0.41 L (0.66-1.25) mg/dL POC Glucose (mg/dL) 121 H (70-110) mg/dL 06/23/24 06/23/24 Range/Units 05:28 11:17 RBC (4.30-5.90) m/uL Hgb (13.0-17.5) gm/dL Hct (39.0-53.0) % RDW (11.5-15.5) % Plt Count (150-450) k/uL Neutrophils # (1.3-7.7) k/uL Lymphocytes # (1.0-4.8) k/uL ABG pH 7.47 H (7.35-7.45) ABG pO2 73 L (83-108) mmHg ABG HCO3 30 H (21-25) mmol/L ABG Total CO2 31 H (19-24) mmol/L Sodium (137-145) mmol/L Creatinine (0.66-1.25) mg/dL POC Glucose (mg/dL) 118 H (70-110) mg/dL Assessment and Plan Assessment: Postop day 14 : Revision [id number] decompression and fusion with T8 kyphoplasty Acute/subacute stroke Multiple complex medical comorbidities Plan: -Appreciate cardiology consultants and team management. -Activity: Bedrest at this time, Turn and reposition patient q2hrs -Neuro checks every 2 hours -Pain control: Adequate at this time -Meds: reviewed -GI ppx: senna -DVT PPX: TEDs, SCDs, Heparin -Hygiene: Maintain dressing clean and dry. Meticulous cleaning after BMs away from the incision site -Encourage IS 10x/hr *I reviewed and discussed this case with my attending Dr. Jeffrey, whom has reviewed this chart and films and is in agreement with assessment and plan of care as outlined above. I have personally seen and examined the patient, performed the documentation and the assessment and plan as written. Number of minutes spent on the visit: 20m.
[2024-06-23 23:55] LABS: Glucose,Whole Blood 102 mg/dL (70-110)
--- NOTE | 2024-06-24 01:18 | PN ---
PROGRESS NOTE SUBJECTIVE: A 58-year-old white male, status post trach and PEG, had pneumonia, talked to Dr. Camejo about adding more medicines to treat the pneumonia, possibly MRSA. OBJECTIVE: VITAL SIGNS: Pulse rate is 95, blood pressure is 90s over 70s, respiratory rate 16 to 18. He is resting comfortably. He has a trach on, 50% FiO2. CARDIOVASCULAR: S1, S2. LUNGS: Scattered rhonchi and wheeze. PSYCH: He is sleeping. HEMATOLOGY: Negative Homans. GI: Soft. ASSESSMENT: Status post cerebrovascular accident, L2-L3 fracture, hardware failure, lumbar spine decompression and fusion and open bilateral SI joint fusion, stroke during surgery, treated for respiratory failure with PEG tube, trach tube for breathing. Last blood sugars in low 100s. PO2 on ABG 73, pCO2 is 30, pH 7.47. Continue current treatment. Possibly add more antibiotics for pneumonia. Wean off trach and PEG and improve breathing. Returning Officer notes and Infectious Disease notes are reviewed. MMODL / IJN: [id number] /
[2024-06-24 05:50] LABS: Glucose,Whole Blood 119 mg/dL (70-110)
[2024-06-24 06:02] LABS: Anisocytosis Slight; Basophils % (A) 0 %; Eosinophils # (A) 0.2 k/uL (0-0.7); Eosinophils % (A) 2 %; HCT 40.8 % (39.0-53.0); HGB 12.5 gm/dL (13.0-17.5); Hypochromasia Marked; Lymphocytes % (A) 9 %; MCH 27.7 pg (25.0-35.0); MCHC 30.6 g/dL (31.0-37.0); MCV 90.4 fL (80.0-100.0); Mean Platelet Volume 6.8; Monocytes # (A) 0.8 k/uL (0-1.0); Monocytes % (A) 7 %; Neutrophils # (A) 8.3 k/uL (1.3-7.7); Neutrophils % (A) 81 %; Platelet Count 483 k/uL (150-450); RBC 4.52 m/uL (4.30-5.90); RDW 16.5 % (11.5-15.5); WBC 10.3 k/uL (3.8-10.6)
[2024-06-24 06:18] LABS: ABG Base Excess 4.1 mmol/L; ABG HCO3 30 mmol/L (21-25); ABG Oxygen Saturation 97.9 % (94-97); ABG PCO2 49 mmHg (35-45); ABG PO2 101 mmHg (83-108); ABG TCO2 31 mmol/L (19-24); Allen Test Performed? Yes
[2024-06-24 06:22] LABS: African American GFR (CKD) >90 (>60 ml/min/1.73 sqM); Anion Gap 7 mmol/L; Blood Urea Nitrogen 16 mg/dL (9-20); Calcium 8.7 mg/dL (8.4-10.2); Carbon Dioxide 26 mmol/L (22-30); Chloride 104 mmol/L (98-107); Glucose 114 mg/dL (74-99); Non-African American GFR(CKD) >90 (>60 ml/min/1.73 sqM); Potassium 4.3 mmol/L (3.5-5.1); Sodium 137 mmol/L (137-145)
--- NOTE | 2024-06-24 07:47 | XR ---
EXAMINATION TYPE: XR chest 1V portable DATE OF EXAM: 06/24/2024 COMPARISON: 06/23/2024 HISTORY: SOB, Follow Up FINDINGS: Indwelling tubes and catheters are unchanged. Interval improvement in bibasilar opacities. Stable appearance of the cardio-mediastinal structures at this time. Indication pleural effusions. IMPRESSION: 1. Proving basilar opacities. Clinical correlation and follow up until resolution is recommended.
--- NOTE | 2024-06-24 11:24 | P.PN ---
Subjective Progress Note Date: 06/24/24 Principal diagnosis: L2 vertebral body compression fracture, postoperative day 14 acute CVA Patient is a 58-year-old white male with past medical history significant for obstructive sleep apnea with home CPAP, COPD, ex tobacco smoker, marijuana smoker, atrial fibrillation with previous cardioversion and anticoagulated on Xarelto, diabetes mellitus, hypertension, heart failure, and previous spinal surgeries. His primary care provider is Dr. Deuce Brito. He is currently i ntubated to the mechanical ventilator, unable to provide any information for HPI. Of note, patient recently underwent an L2 to pelvis posterior lateral decompression and fusion on 05/19/2024 at [facility]. During this admission, he initially was recovered in the intensive care unit. Technically, difficult to extubate, and did require BiPAP support immediately after extubation. He was eventually discharged home on 05/26/2024. Patient returned the emergency department on 06/06/2024. On review of the ER documentation, he had a fall while at home. CT of the lumbar spine demonstrated new compression fracture of L2 vertebral body with compression of the vertebral body down to the pedicle screws bilaterally and loosening the left pedicle screw. New left pedicle/transverse process of L2 and L3 fractures around the hardware with mild displacement. Fractures of the right transverse process of L2 and L3. Likely postsurgical subcutaneous gas in the surgical bed. Patient underwent revision thoracic T10 to pelvis decompression fusion yesterday. Intraoperatively, patient had an EBL of 1 L. He has received a total of 5 units of PRBCs, 1 FFP, and 1 pack platelets. He was sent to the intensive care unit postoperatively. He remains on the mechanical ventilator. Chest x-ray shows the endotracheal tube approximately 4.3 cm above the shashank. There is cardiomegaly with pulmona ry vascular congestion suggested. No pleural effusions, pneumothoraces, focal consolidations. Initial ABG had a PaO2 of 80, pCO2 of 61, pH of 7.27. This was done on original ventilator settings of assist-control, respiratory rate 14, tidal volume 500, FiO2 1 9%, and PEEP of 5. My supervising physician is already increased the patient's respiratory rate to 20. He is currently synchronous with mechanical ventilator. There is a moderate amount of clear to white endotracheal secretions. Peak pressures 23. He is sedated with propofol which is currently infusing at 50 mcg/kg/min. He is fairly unarousable. Will withdraw to painful stimuli in all 4 extremities. There is also norepinephrine i nfusing at 0.02 mcg/kg/min. There is a MAP goal of 80 mmHg to support [employer] perfusion. LR is infusing at 10 MLS per hour. There is a Hemovac with a total of 220 serosanguineous output since surgery. We are awaiting postoperative labs. Preoperatively, CBC: WBC count 9.4, hemoglobin 9.6, hematocrit 32.5, platelets 516. Preoperative CMP: Sodium 137, potassium 4.1, chloride 104, serum bicarb 27, BUN 18, creatinine 0.61, glucose 143. LFTs unremarkable. Receiving prophylactic cefazolin. Note that preoperatively, patient did have a cardiac evaluation. Repeat echocardiogram shows a severely reduced left ventricular ejection fraction of 25 to 30% as well as mild mitral and tricuspid regurgita tion. Heart rhythm is atrial fibrillation with controlled ventricular response. Normally anticoagulated on Xarelto, however, this is on hold for surgery. Progress note dated June 20, 2024. 58-year-old male seen in room 255. The patient remains critically ill on the mechanical ventilator. Ventilator settings include volume assist-control, rate 20, tidal volume 500, FiO2 40%, PEEP of 5. Blood gases are currently pending. Patient continues on heparin via weight-based protocol, and tube feedings. In addition, the patient remains on propofol at 20 mcg/kg/min. Current laboratory data from June 20 are pending. Patient is able to tolerate. Pressure support and CPAP. Because of his poor mental status from a CVA, and airway secretions, it has been decided not to extubate the patient. Rather, the patient will have a tracheostomy and PEG tube placed on Saturday. Labs, x-rays, and all medications are reviewed. The patient also continues on ertapenem, for his ESBL Escherichia coli. Current medications include vitamin C, Lipitor, Dulcolax, Pulmicort, Wellbutrin, chlorhexidine, vitamin D3, Flexeril, Farxiga, ertapenem, ferrous sulfate, formoterol, Lasix, Neurontin, heparin, Dilaudid, insulin, DuoNeb, magnesium, metoprolol, Singulair, Narcan, Zofran, Protonix, Paxil, potassium protocol, and Senokot. Progress note dated June 21, 2024. 58-year-old male again seen in room 255. In my opinion, the patient is not yet ready to be extubated, despite the fact that he is has some reasonable success with weaning trials. His overall mental status is poor, and he still has issues with secretions. He apparently is scheduled for tracheostomy and PEG tube in the morning. His ventilator settings include volume assist-control, rate 20, tidal volume 500, FiO2 40%, PEEP of 5. Blood gases this morning show pO2 of 94, pCO2 44, pH is 7.47. His CPAP trial was pressure support of 7, CPAP of 5, and 40%. The patient is on saline at KVO, IV heparin, and propofol, at 30 mcg/kg/min. He is getting vital high-protein at 40, which is goal. Current labs include a white count 7.3, hemoglobin 9.5, hematocrit 37.6, and platelet count of 689,000. Sodium 139, potassium 3.9, chlorides 105, CO2 28, BUN 17, creatinine 0.40. Glucose is 110. Calcium is 8.5. Wound cultures were positive for ESBL Escherichia coli. Chest x-ray shows some patchy infiltrates. Patient was seen today on 06/22/2024, remains in the ICU, intubated and mechanically ventilated. Patient is on assist-control rate of 20 tidal volume 500 FiO2 40% and PEEP of 5 ABG showed a pO2 of 69 pCO2 40 0 pH of 7.50. Patient remains on propofol at 40 mcg/kg/min, remains on ertapenem, patient had a PICC line placed today, and he is supposed to have tracheostomy today as already arranged for by Dr. Lopez. Apparently the patient has been failure to wean, this failure was felt to be secondary to significant amount of secretions that the patient had, and also related to mental status/CVA. Again the patient is scheduled to have a PEG tube and tracheostomy today. I am not planning any weaning trials on the patient today. Reviewed all his labs and a chest x- ray.WBC count is 7.7 hemoglobin is 11.8. Basic metabolic profile is relatively normal renal profile is normal chest x-ray showed mild pulmonary vascular congestion, it also showed some patchy atelectasis or consolidation of the right lung base patient include Lipitor, Dulcolax, Pulmicort, Wellbutrin, Peridex, vitamin D3, Flexeril, farXCIGA, Triptafen-M, iron, Perforomist, Lasix 40 mg p.o. daily, gabapentin, heparin, nebulized Atrovent, NovoLog insulin, Dilaudid, LR, Lopressor, Singulair, Protonix, Paxil, propofol and Senokot. Patient was evaluated today on 06/23/24, patient is now status post tracheostomy, PEG tube placement, PICC line placement, remains on the vent, seems to be now synchronous with the ventilator, and I had to increase his propofol. His gases are marginal with a pO2 of 73 pCO2 41 pH of 7.47 his O2 saturation is marginal and he is on assist-control rate of 20 tidal volume 500 FiO2 60% PEEP of 5 which I increased to 8. Patient is on propofol at 50 mcg/kg/min, increased to 75 mcg/kg/min. Remains on Invanz remains on enteral feeding, and this will be restarted today via PEG tube. Considering the gases considering the chest x-ray and considering the overall clinical appearance of the patient, I do not believe he is ready to be weaned, actually the patient needs more sedation to make sure that he is synchronous with the ventilator. WBC count is 10.2 hemoglobin 11.7 electrolytes are normal, renal profile is normal. Chest x-ray showed tracheostomy in proper position, slight opacities persist. Mostly atelectasis, possible pneumonia Patient was evaluated today on 06/24/2024, patient remained ICU, intubated, mechanically ventilated, tracheostomy is intact. Patient is on assist-control rate of 20 tidal volume 500 FiO2 50% PEEP 8 ABG showed a pO2 of 101 pCO2 49 pH of 7.40 hence FiO2 was cut down to 45% and PEEP Down to 5 remains on propofol at 55 mcg/kg/min, off norepinephrine, patient remains in atrial fibrillation, rate is fairly well-controlled. Patient also remains on Invanz, and that is being addressed by infectious disease. WBC count is 10.3 hemoglobin 12.5. Platelets are 483. Metabolic profile and renal profile are normal Objective - Vital Signs Vital signs: Vital Signs Temp 98.8 F 06/24/24 08:00 Pulse 86 06/24/24 11:00 Resp 23 06/24/24 11:00 BP 93/66 06/24/24 11:00 Pulse Ox 97 06/24/24 11:00 FiO2 45 06/24/24 10:36 Intake & Output 06/23/24 06/24/24 06/24/24 18:59 06:59 18:59 Intake Total 501.434 9011.461 351.354 Output Total 1520 965 515 Balance -528.080 41.461 -163.646 Weight 105 kg 104.8 kg Intake: IV 290 240 150 Ertapenem 1 gm In Sodium 50 50 Chloride 0.9% 50 ml @ 100 mls/hr IVPB DAILY [facility] Rx #:[id number] Lactated Ringers 1,000 ml 240 240 100 @ 20 mls/hr IV .Q24H [facility] Rx#:[id number] Intake, IV Titration 561.920 556.461 151.354 Amount Norepinephrine 4 mg In 66.599 33.66 Sodium Chloride 0.9% 250 ml @ 0.03 MCG/KG/MIN 13. 087 mls/hr IV .[id number] [facility] Rx#:[id number] propofoL 1,000 mg In 495.321 522.801 151.354 Empty Bag 1 bag @ 75 MCG/ KG/MIN 51.525 mls/hr IV . Q1H57M [facility] Rx#:[id number] Tube Feeding 80 120 50 Other 60 90 Output: Urine 1520 965 515 Other: Voiding Method Indwelling Catheter Indwelling Catheter Indwelling Catheter ABP, PAP, CO, CI - Last Documented Arterial Blood Pressure 106/58 - Exam General: 58-year-old white male intubated mechanically ventilated. Head: Atraumatic, normocephalic HEENT: PERRLA, EOMI, nonicteric, no neck masses, no JVD, gastric tube is intact. Skin: Skin is warm and dry and no rashes or lesions are noted. Cardiovascular: Irregular rhythm, no S3 gallop, 2/6 systolic murmur throughout the precordium Respiratory: Diminished breath sounds at the bases with crackles noted. Rhonchi noted. Gastrointestinal: Soft nontender no megaly no rebound no guarding new PEG tube is noted. Seems to be intact Musculoskeletal: No deformities, could not assess strength, patient is sedated Neurological: Could not fully assess, sedated, on propofol Psychiatric: Could not fully assess - Labs CBC & Chem 7: 06/24/24 05:43 06/24/24 05:43 Labs: Abnormal Lab Results - Last 24 Hours (Table) 06/24/24 06/24/24 06/24/24 Range/Units 05:43 05:43 05:49 Hgb 12.5 L (13.0-17.5) gm/dL MCHC 30.6 L (31.0-37.0) g/dL RDW 16.5 H (11.5-15.5) % Plt Count 483 H (150-450) k/uL Neutrophils # 8.3 H (1.3-7.7) k/uL ABG pCO2 (35-45) mmHg ABG HCO3 (21-25) mmol/L ABG Total CO2 (19-24) mmol/L ABG O2 Saturation (94-97) % Creatinine 0.42 L (0.66-1.25) mg/dL Glucose 114 H (74-99) mg/dL POC Glucose (mg/dL) 119 H (70-110) mg/dL 06/24/24 Range/Units 06:17 Hgb (13.0-17.5) gm/dL MCHC (31.0-37.0) g/dL RDW (11.5-15.5) % Plt Count (150-450) k/uL Neutrophils # (1.3-7.7) k/uL ABG pCO2 49 H (35-45) mmHg ABG HCO3 30 H (21-25) mmol/L ABG Total CO2 31 H (19-24) mmol/L ABG O2 Saturation 97.9 H (94-97) % Creatinine (0.66-1.25) mg/dL Glucose (74-99) mg/dL POC Glucose (mg/dL) (70-110) mg/dL Assessment and Plan Assessment: Impression: Acute hypoxic respiratory failure, multifactorial secondary to underlying COPD, congestive heart failure with reduced ejection fraction, and suspected atelectasis and possible pneumonia Respiratory fall with L2 vertebral compression fracture Postoperative day # 14 following revision of T10 to pelvis decompression and fusion with stabilization Acute left frontal parietal ischemic CVA ESBL E. coli wound infection, remains on Invanz Recent L2 to pelvis posterior lateral decompression and fusion on 05/19/2024 Congestive heart failure with reduced ejection fraction/acute Chronic atrial fibrillation Benign essential hypertension Dyslipidemia Type 2 diabetes Obesity with BMI of 38.4 Obstructive sleep apnea syndrome Ex-smoker Remote history of prior C2-T2 decompression and fusion Failure to wean status post tracheostomy on 06/22/2024 Recommendation: Patient will be kept on ventilatory support, however he will be awakened, there will be a sedation interruption today, assessment of mental status, and if goes well will even consider a trial of pressure support and CPAP on this patient. Continue present supportive care measures Continue ventilatory support Continue nutritional support via PEG Continue tracheostomy care Continue GI and DVT prophylaxis Continue antibioticsl For what seems to be ESBL E. coli in the wound/positive wound culture for E. coli Patient remains critically ill Critical care time is over 30 Time with Patient: Greater than 30
[2024-06-24] MEDS: IPRATROPIUM-ALBUTEROL 3 ML NEB INHALATION SCH (11:28)
[2024-06-24 11:33] LABS: Glucose,Whole Blood 117 mg/dL (70-110)
--- NOTE | 2024-06-24 12:00 | PN ---
PROGRESS NOTE He is in the ICU, status post trach and PEG, discharged about pneumonia, discussed with Dr. Camejo and I am not sure if he does have any MRSA infection. Sugars are 97 to 119, creatinine 0.42, and pCO2 is 49. ABG; Gram stain and sputum shows few Rosangela, culture showed E coli. He is on IV antibiotics for another chest x-ray today that showed stable appearance of cardiomediastinal structures, can involve improvement of the bibasilar opacities, improving pneumonia. Continue current treatments. Reviewed Dr. Camejo's recommendations, trach and PEG care. PROGNOSIS: Guarded. Please see further orders. MMODL / IJN: [id number] /
--- NOTE | 2024-06-24 12:55 | P.PN ---
Subjective Progress Note Date: 06/24/24 CHIEF COMPLAINT: Fall HISTORY OF PRESENT ILLNESS: Patient remains in the ICU intubated and on mechanical ventilation. Patient status post tracheostomy and PEG tube placement patient undergoing sedation holiday today. He is on tube feeds at 10 mL/h. And tolerating them. Xarelto resumed PHYSICAL EXAM: VITAL SIGNS: Reviewed. GENERAL: no acute distress. Neck: Tracheostomy site clean dry and intact ABDOMEN: Soft. Nondistended. Nontender. PEG tube site clean dry and intact ASSESSMENT: 1. Respiratory failure. Difficulty weaning from the vent 2. Moderate protein calorie malnutrition 3. Status post revision of spinal surgery 4. CVA PLAN: -Continue to titrate tube feeds per dietitian -Continue supportive care Physician Inserting Press Operator note has been reviewed by physician. Signing provider agrees with the documented findings, assessment, and plan of care. Objective - Vital Signs Vital signs: Vital Signs Temp 98.8 F 06/24/24 08:00 Pulse 114 H 06/24/24 12:00 Resp 22 06/24/24 12:00 BP 115/80 06/24/24 12:00 Pulse Ox 97 06/24/24 11:00 FiO2 45 06/24/24 12:23 Intake & Output 06/23/24 06/24/24 06/24/24 18:59 06:59 18:59 Intake Total 656.084 3914.461 417.364 Output Total 1520 965 690 Balance -528.080 41.461 -272.636 Weight 105 kg 104.8 kg Intake: IV 290 240 170 Ertapenem 1 gm In Sodium 50 50 Chloride 0.9% 50 ml @ 100 mls/hr IVPB DAILY [facility] Rx #:[id number] Lactated Ringers 1,000 ml 240 240 120 @ 20 mls/hr IV .Q24H [facility] Rx#:[id number] Intake, IV Titration 561.920 556.461 157.364 Amount Norepinephrine 4 mg In 66.599 33.66 Sodium Chloride 0.9% 250 ml @ 0.03 MCG/KG/MIN 13. 087 mls/hr IV .[id number] [facility] Rx#:[id number] propofoL 1,000 mg In 495.321 522.801 157.364 Empty Bag 1 bag @ 75 MCG/ KG/MIN 51.525 mls/hr IV . Q1H57M [facility] Rx#:[id number] Tube Feeding 80 120 60 Other 60 90 30 Output: Urine 1520 965 690 Other: Voiding Method Indwelling Catheter Indwelling Catheter Indwelling Catheter ABP, PAP, CO, CI - Last Documented Arterial Blood Pressure 106/58 - Labs CBC & Chem 7: 06/24/24 05:43 06/24/24 05:43 Labs: Abnormal Lab Results - Last 24 Hours (Table) 06/24/24 06/24/24 06/24/24 Range/Units 05:43 05:43 05:49 Hgb 12.5 L (13.0-17.5) gm/dL MCHC 30.6 L (31.0-37.0) g/dL RDW 16.5 H (11.5-15.5) % Plt Count 483 H (150-450) k/uL Neutrophils # 8.3 H (1.3-7.7) k/uL ABG pCO2 (35-45) mmHg ABG HCO3 (21-25) mmol/L ABG Total CO2 (19-24) mmol/L ABG O2 Saturation (94-97) % Creatinine 0.42 L (0.66-1.25) mg/dL Glucose 114 H (74-99) mg/dL POC Glucose (mg/dL) 119 H (70-110) mg/dL 06/24/24 06/24/24 Range/Units 06:17 11:32 Hgb (13.0-17.5) gm/dL MCHC (31.0-37.0) g/dL RDW (11.5-15.5) % Plt Count (150-450) k/uL Neutrophils # (1.3-7.7) k/uL ABG pCO2 49 H (35-45) mmHg ABG HCO3 30 H (21-25) mmol/L ABG Total CO2 31 H (19-24) mmol/L ABG O2 Saturation 97.9 H (94-97) % Creatinine (0.66-1.25) mg/dL Glucose (74-99) mg/dL POC Glucose (mg/dL) 117 H (70-110) mg/dL
[2024-06-24 17:32] LABS: Glucose,Whole Blood 114 mg/dL (70-110)
--- NOTE | 2024-06-24 17:38 | P.PN ---
Subjective Progress Note Date: 06/24/24 Patient was under my care about [address] weeks [address] then [address] Echols was following up with the patient last week. Please refer to his note for further details. It seems that the patient was eventually trached and pegged per the nurse this past Saturday and was started on Xarelto. No worsening of his neurological examination per the nurse. Objective - Vital Signs Vital signs: Vital Signs Temp 100.0 F H 06/24/24 16:00 Pulse 121 H 06/24/24 17:00 Resp 24 06/24/24 17:00 BP 119/69 06/24/24 17:00 Pulse Ox 99 06/24/24 17:00 FiO2 50 06/24/24 16:00 Intake & Output 06/23/24 06/24/24 06/24/24 18:59 06:59 18:59 Intake Total 072.773 9002.461 631.486 Output Total 6584 164 9481 Balance -528.080 41.461 -593.514 Weight 105 kg 104.8 kg Intake: IV 290 240 270 Ertapenem 1 gm In Sodium 50 50 Chloride 0.9% 50 ml @ 100 mls/hr IVPB DAILY [facility] Rx #:[id number] Lactated Ringers 1,000 ml 240 240 220 @ 20 mls/hr IV .Q24H [facility] Rx#:[id number] Intake, IV Titration 561.920 556.461 161.486 Amount Norepinephrine 4 mg In 66.599 33.66 Sodium Chloride 0.9% 250 ml @ 0.03 MCG/KG/MIN 13. 087 mls/hr IV .[id number] [facility] Rx#:[id number] propofoL 1,000 mg In 495.321 522.801 161.486 Empty Bag 1 bag @ 75 MCG/ KG/MIN 51.525 mls/hr IV . Q1H57M [facility] Rx#:[id number] Tube Feeding 80 120 110 Other 60 90 90 Output: Urine 1842 623 2062 Other: Voiding Method Indwelling Catheter Indwelling Catheter Indwelling Catheter ABP, PAP, CO, CI - Last Documented Arterial Blood Pressure 106/58 - Exam General: Lying in bed and does not appear in acute distress. Respiratory: Intubated on ventilator. Neuro: Limited. It is awake but would not follow commands or attempt to verbalize and when I went to his right side he will turn his head to the left side and when I went to his left side he would turn his head to the right side. Patient would move his left upper extremity spontaneously above gravity. Some of the other workup during this hospital visit consisted of: Lipid panel is triglyceride 68, cholesterol is 56, LDL is 18 and HDL is 23 Hemoglobin A1c 6.6. The echo on 06/08/2024 is reported as ejection fraction of 25 to 30%. CT head is reported as finding of acute/subacute CVA involving the left frontal parietal region. CTA head and neck is read as no significant diameter reduction to account for the patient's symptoms. Area of hypoattenuation as described on the prior CT brain left frontal parietal region compatible with a finding of acute/subacute CVA. Repeat CT head today in morning: Ongoing evolution of acute to subacute infarct over latral left frontal and parietal region with greater degree of hypodensity. Similar sulcal effacement. Minimal righward midline shift of 4mm vs 3mm measure on 06/10/24. No hemorrhagic transformation. Wound culture is positive for ESBL E. coli. Limited 2D echo was reported as mild reduced left ventricle systolic function left atrial enlargement. Most recent repeat CT head on 06/19/2024 is left MCA territory evolving acute/subacute CVA. No evidence for hemorrhagic conversion. No significant adverse change compared to prior exam on June 14, 2024. - Labs CBC & Chem 7: 06/24/24 05:43 06/24/24 05:43 Labs: Abnormal Lab Results - Last 24 Hours (Table) 06/24/24 06/24/24 06/24/24 Range/Units 05:43 05:43 05:49 Hgb 12.5 L (13.0-17.5) gm/dL MCHC 30.6 L (31.0-37.0) g/dL RDW 16.5 H (11.5-15.5) % Plt Count 483 H (150-450) k/uL Neutrophils # 8.3 H (1.3-7.7) k/uL ABG pCO2 (35-45) mmHg ABG HCO3 (21-25) mmol/L ABG Total CO2 (19-24) mmol/L ABG O2 Saturation (94-97) % Creatinine 0.42 L (0.66-1.25) mg/dL Glucose 114 H (74-99) mg/dL POC Glucose (mg/dL) 119 H (70-110) mg/dL 06/24/24 06/24/24 Range/Units 06:17 11:32 Hgb (13.0-17.5) gm/dL MCHC (31.0-37.0) g/dL RDW (11.5-15.5) % Plt Count (150-450) k/uL Neutrophils # (1.3-7.7) k/uL ABG pCO2 49 H (35-45) mmHg ABG HCO3 30 H (21-25) mmol/L ABG Total CO2 31 H (19-24) mmol/L ABG O2 Saturation 97.9 H (94-97) % Creatinine (0.66-1.25) mg/dL Glucose (74-99) mg/dL POC Glucose (mg/dL) 117 H (70-110) mg/dL Assessment and Plan Assessment: This is a 58-year-old gentleman with history of atrial fibrillation status post cardioversion on Xarelto, diabetes mellitus, heart failure, cervical myelopathy, back pain and had recent L2 to pelvis decompression and fusion of bilateral open SI joint on 05/19/2024 who had a recent fall with back pain. Patient had L2-L3 fracture and has hardware failure of the thoracic spine to pelvis. On 06/09/2024, patient had L1-L2 and L3 revision T10 to pelvis posterior lateral instrumented fusion with hardware removal. His Xarelto was held 48 hours and it seems last dose was on 06/08/2024 per the nurse. On 06/10/2024, when the sedation was held the patient was not moving the right side and CT of the head shows acute to subacute over the left frontal parietal region. Acute to subacute stroke (seems more subacute) over the left frontal parietal region Altered mental status due to above, sepsis (Wound culture is positive for ESBL E. coli.) Recent fall with back pain and it seems that the patient has L2-L3 Fracture s/p revision T10 to Pelvis posterior lateral instrument fusion with hardware removal Intubated on a ventilator History of atrial fibrillation status post cardioversion and was on Xarelto and the Xarelto was held for the last 48 hours but currently on heparin drip History of cervical myelopathy status post C2-T2 decompression and fusion Recent recent L2 to pelvis decompression and fusion of bilateral open SI joint on 05/19/2024 Respiratory distress status post trach on 06/22/2024 Dysphagia status post PEG on 06/22/2024 History of Systolic Heart failure and recent 2D echo on 06/08/24 has EF 25-30% Diabetes mellitus and HbA1c: 6.6 Chronic hypertension History of hyperlipidemia History of obstructive sleep apnea Former tobacco use Plan: For his A-fib patient is on Xarelto. Is on Lipitor 40mg qhs which is sufficient for secondary stroke prophylaxis. Continue neurochecks Cardiac monitoring PT OT are consulted Cardiology team is on board Will defer the rest of the medical management to primary and other specialists DVT prophylaxis: On heparin drip Condition is very guarded. Discharge recommend the patient to follow-up with neurologist as an outpatient within 1 to 2 weeks. The the patient will require LTAC. Plan discussed with ICU nurse. There is no further neurological workup. Will sign off. Please reconsult if needed.
--- NOTE | 2024-06-24 18:24 | P.PN ---
Subjective Progress Note Date: 06/24/24 HPI 58-year-old male with multiple comorbidities known to Dr. Menard. Cardiology was consulted for perioperative clearance initially after patient suffered a mechanical fall and suffered a lumbar spine fracture. Patient thereafter underwent a L1 L2 fracture and diversion of T10 through pelvic decompression and fusion with stabilization. Patient was thereafter transferred to ICU and was maintained on ventilator support. Patient had difficulty getting weaned off ventilator support. There was a concern of possible stroke postoperatively. Patient's initial echocardiogram showed severe cardiomyopathy with EF of 25 to 30%. Repeat echocardiogram after stroke showed an EF of 45% with no evidence of LV thrombus. Patient also maintained to have persistent atrial fibrillation. June 23, 2024 Cardiology was reconsulted today because patient was having labile blood pressure and heart rates. Patient is post trach and PEG, and postoperatively patient had lower blood pressure and more agitation. For this his propofol was increased. After increasing propofol patient's blood pressure dropped for which she was placed on norepinephrine. Since being placed on norepinephrine he is having a labile heart rate of around 110 bpm. June 24, 2024 BP 120 over 69 mmHg, heart rate 120 bpm, continues to be in atrial fibrillation with RVR. Still continues to be on ventilator support, PHYSICAL EXAMINATION BP 99/60, heart rate 110s, atrial fibrillation, Cardiac exam S1-S2 is audible, no significant murmurs appreciated Lung exam: On vent support, mild crackles audible in bilateral lung simental, no significant rhonchi or wheezing Neurological exam: No detailed exam was performed as patient is on propofol IMPRESSION: Atrial fibrillation with RVR Labile blood pressure, currently on norepinephrine, multifactorial from low EF, propofol use, postop state S/p trach and PEG S/p mechanical fall, s/p lumbar surgery Recent revision of L2 to pelvis posterior lateral decompression and fusion with bilateral open SI joint fusions on 05/19/2024 Hardware failure of L2-L3, status post L1-L2 revision and T10 through pelvis decompression and fusion Hyperlipidemia Diabetes Cardiomyopathy, unspecified type, EF 25 to 30% PLAN: Increase metoprolol to 10=50 mg twice daily. Use norepinephrine to minimum. See if we can cut down on propofol, and that we will be able to wean him down off norepinephrine. As norepinephrine will be reduced his heart rate will be better controlled. Maintain potassium at 4, magnesium at 2, make sure patient is not getting acidotic Continue supportive ICU care Continue anticoagulation with Xarelsabrina Martino, MD, [facility], [facility] Thank you for allowing [facility] to participate in this patient's care. Please contact us in case of any followup questions. Objective - Vital Signs Vital signs: Vital Signs Temp 100.0 F H 06/24/24 16:00 Pulse 121 H 06/24/24 17:00 Resp 24 06/24/24 17:00 BP 119/69 06/24/24 17:00 Pulse Ox 99 06/24/24 17:00 FiO2 50 06/24/24 16:00 Intake & Output 06/23/24 06/24/24 06/24/24 18:59 06:59 18:59 Intake Total 854.459 5270.461 675.798 Output Total 8271 525 3591 Balance -528.080 41.461 -549.202 Weight 105 kg 104.8 kg Intake: IV 290 240 270 Ertapenem 1 gm In Sodium 50 50 Chloride 0.9% 50 ml @ 100 mls/hr IVPB DAILY [facility] Rx #:[id number] Lactated Ringers 1,000 ml 240 240 220 @ 20 mls/hr IV .Q24H [facility] Rx#:[id number] Intake, IV Titration 561.920 556.461 205.798 Amount Norepinephrine 4 mg In 66.599 33.66 Sodium Chloride 0.9% 250 ml @ 0.03 MCG/KG/MIN 13. 087 mls/hr IV .[id number] [facility] Rx#:[id number] propofoL 1,000 mg In 495.321 522.801 205.798 Empty Bag 1 bag @ 75 MCG/ KG/MIN 51.525 mls/hr IV . Q1H57M [facility] Rx#:[id number] Tube Feeding 80 120 110 Other 60 90 90 Output: Urine 7581 048 2634 Other: Voiding Method Indwelling Catheter Indwelling Catheter Indwelling Catheter ABP, PAP, CO, CI - Last Documented Arterial Blood Pressure 106/58 - Labs CBC & Chem 7: 06/24/24 05:43 06/24/24 05:43 Labs: Abnormal Lab Results - Last 24 Hours (Table) 06/24/24 06/24/24 06/24/24 Range/Units 05:43 05:43 05:49 Hgb 12.5 L (13.0-17.5) gm/dL MCHC 30.6 L (31.0-37.0) g/dL RDW 16.5 H (11.5-15.5) % Plt Count 483 H (150-450) k/uL Neutrophils # 8.3 H (1.3-7.7) k/uL ABG pCO2 (35-45) mmHg ABG HCO3 (21-25) mmol/L ABG Total CO2 (19-24) mmol/L ABG O2 Saturation (94-97) % Creatinine 0.42 L (0.66-1.25) mg/dL Glucose 114 H (74-99) mg/dL POC Glucose (mg/dL) 119 H (70-110) mg/dL 06/24/24 06/24/24 06/24/24 Range/Units 06:17 11:32 17:30 Hgb (13.0-17.5) gm/dL MCHC (31.0-37.0) g/dL RDW (11.5-15.5) % Plt Count (150-450) k/uL Neutrophils # (1.3-7.7) k/uL ABG pCO2 49 H (35-45) mmHg ABG HCO3 30 H (21-25) mmol/L ABG Total CO2 31 H (19-24) mmol/L ABG O2 Saturation 97.9 H (94-97) % Creatinine (0.66-1.25) mg/dL Glucose (74-99) mg/dL POC Glucose (mg/dL) 117 H 114 H (70-110) mg/dL
[2024-06-24] MEDS: METOPROLOL TARTRATE 50 MG TAB PO SCH (21:01)
[2024-06-24 23:44] LABS: Glucose,Whole Blood 101 mg/dL (70-110)
[2024-06-25 06:00] LABS: Glucose,Whole Blood 124 mg/dL (70-110)
[2024-06-25 06:32] LABS: ABG Base Excess 6.4 mmol/L; ABG HCO3 31 mmol/L (21-25); ABG Oxygen Saturation 97.5 % (94-97); ABG PCO2 42 mmHg (35-45); ABG PH 7.47 (7.35-7.45); ABG PO2 89 mmHg (83-108); ABG TCO2 32 mmol/L (19-24); Allen Test Performed? Yes
[2024-06-25] MEDS ORDERED: oxyCODONE-APAP 10-325MG 1 EACH TAB PEG/G-TUBE PRN (07:14)
[2024-06-25 07:22] LABS: ALT 27 U/L (4-49); AST 27 U/L (17-59); African American GFR (CKD) >90 (>60 ml/min/1.73 sqM); Albumin 3.1 g/dL (3.5-5.0); Alkaline Phosphatase 146 U/L (38-126); Anion Gap 7 mmol/L; Blood Urea Nitrogen 17 mg/dL (9-20); Calcium 8.8 mg/dL (8.4-10.2); Carbon Dioxide 27 mmol/L (22-30); Chloride 103 mmol/L (98-107); Glucose 96 mg/dL (74-99); Non-African American GFR(CKD) >90 (>60 ml/min/1.73 sqM); Potassium 3.7 mmol/L (3.5-5.1); Sodium 137 mmol/L (137-145); Total Bilirubin 1.6 mg/dL (0.2-1.3); Total Protein 5.5 g/dL (6.3-8.2)
[2024-06-25 07:31] LABS: Anisocytosis Slight; Basophils % (A) 0 %; Eosinophils # (A) 0.1 k/uL (0-0.7); Eosinophils % (A) 1 %; HCT 37.6 % (39.0-53.0); HGB 11.8 gm/dL (13.0-17.5); Hypochromasia Marked; Lymphocytes # (A) 0.9 k/uL (1.0-4.8); Lymphocytes % (A) 9 %; MCH 27.8 pg (25.0-35.0); MCHC 31.3 g/dL (31.0-37.0); Mean Platelet Volume 8.1; Monocytes # (A) 0.8 k/uL (0-1.0); Monocytes % (A) 8 %; Neutrophils # (A) 7.5 k/uL (1.3-7.7); Neutrophils % (A) 80 %; Platelet Count 406 k/uL (150-450); RBC 4.22 m/uL (4.30-5.90); RDW 16.9 % (11.5-15.5); WBC 9.3 k/uL (3.8-10.6)
--- NOTE | 2024-06-25 08:05 | XR ---
EXAMINATION TYPE: XR chest 1V portable DATE OF EXAM: 06/25/2024 HISTORY: Shortness of breath. COMPARISON: 06/24/2024 TECHNIQUE: Single view of the chest is submitted. FINDINGS: Demonstrated are scattered senescent parenchymal change. Tracheostomy tube is noted as well as left-sided PICC line. Continued improvement in basilar infiltra kelly. Continued cardiomegaly. Hilar and mediastinal structures are within normal limits. Degenerative changes are seen of the dorsal spine. IMPRESSION: 1. Tracheostomy tube is noted as well as left-sided PICC line. Continued improvement in basilar infi ltrates. Continued cardiomegaly.
[2024-06-25] MEDS: FLUCONAZOLE 100 MG TAB PO SCH (08:48)
[2024-06-25] MEDS: POTASSIUM BICARBONATE/CIT AC 20 MEQ TABLET.EFF NG-TUBE SCH (08:48)
[2024-06-25] MEDS: CYCLOBENZAPRINE 10 MG TAB PEG/G-TUBE SCH (08:49)
[2024-06-25 11:18] LABS: Glucose,Whole Blood 123 mg/dL (70-110)
[2024-06-25 11:44] LABS: Glucose,Whole Blood 110 mg/dL (70-110)
--- NOTE | 2024-06-25 12:18 | P.PN ---
Subjective Progress Note Date: 06/25/24 Principal diagnosis: L2 vertebral body compression fracture, postoperative day #15, acute CVA Patient is a 58-year-old white male with past medical history significant for obstructive sleep apnea with home CPAP, COPD, ex tobacco smoker, marijuana smoker, atrial fibrillation with previous cardioversion and anticoagulated on Xarelto, diabetes mellitus, hypertension, heart failure, and previous spinal surgeries. His primary care provider is Dr. Deuce Brito. He is currently intubated to the mechanical ventilator, unable to provide any information for HPI. Of note, patient recently underwent an L2 to pelvis posterior lateral decompression and fusion on 05/19/2024 at [facility]. During this admission, he initially was recovered in the intensive care unit. Technically, difficult to extubate, and did require BiPAP support immediately after extubation. He was eventually discharged home on 05/26/2024. Patient returned the emergency department on 06/06/2024. On review of the ER documentation, he had a fall while at home. CT of the lumbar spine demonstrated new compression fracture of L2 vertebral body with compression of the vertebral body down to the pedicle screws bilaterally and loosening the left pedicle screw. New left pedicle/transverse process of L2 and L3 fractures around the hardware with mild displacement. Fractures of the right transverse process of L2 and L3. Likely postsurgical subcutaneous gas in the surgical bed. Patient underwent revision thoracic T10 to pelvis decompression fusion yesterday. Intraoperatively, patient had an EBL of 1 L. He has received a total of 5 units of PRBCs, 1 FFP, and 1 pack platelets. He was sent to the intensive care unit postoperatively. He remains on the mechanical ventilator. Chest x-ray shows the endotracheal tube approximately 4.3 cm above the shashank. There is cardiomegaly with pulmo nary vascular congestion suggested. No pleural effusions, pneumothoraces, focal consolidations. Initial ABG had a PaO2 of 80, pCO2 of 61, pH of 7.27. This was done on original ventilator settings of assist-control, respiratory rate 14, tidal volume 500, FiO2 1 9%, and PEEP of 5. My supervising physician is already increased the patient's respiratory rate to 20. He is currently synchronous wit h mechanical ventilator. There is a moderate amount of clear to white endotracheal secretions. Peak pressures 23. He is sedated with propofol which is currently infusing at 50 mcg/kg/min. He is fairly unarousable. Will withdraw to painful stimuli in all 4 extremities. There is also norepinephrine infusing at 0.02 mcg/kg/min. There is a MAP goal of 80 mmHg to support [employer] perfusion. LR is infusing at 10 MLS per hour. There is a Hemovac with a total of 220 serosanguineous output since surgery. We are awaiting postoperative labs. Preoperatively, CBC: WBC count 9.4, hemoglobin 9.6, hematocrit 32.5, platelets 516. Preoperative CMP: Sodium 137, potassium 4.1, chloride 104, serum bicarb 27, BUN 18, creatinine 0.61, glucose 143. LFTs unremarkable. Receiving prophylactic cefazolin. Note that preoperatively, patient did have a cardiac evaluation. Repeat echocardiogram shows a severely reduced left ventricular ejection fraction of 25 to 30% as well as mild mitral and tricuspid regurgi tation. Heart rhythm is atrial fibrillation with controlled ventricular response. Normally anticoagulated on Xarelto, however, this is on hold for surgery. Progress note dated June 20, 2024. 58-year-old male seen in room 255. The patient remains critically ill on the mechanical ventilator. Ventilator settings include volume assist-control, rate 20, tidal volume 500, FiO2 40%, PEEP of 5. Blood gases are currently pending. Patient continues on heparin via weight-based protocol, and tube feedings. In addition, the patient remains on propofol at 20 mcg/kg/min. Current laboratory data from June 20 are pending. Patient is able to tolerate. Pressure support and CPAP. Because of his poor mental status from a CVA, and airway secretions, it has been decided not to extubate the patient. Rather, the patient will have a tracheostomy and PEG tube placed on Saturday. Labs, x-rays, and all medications are reviewed. The patient also continues on ertapenem, for his ESBL Escherichia coli. Current medications include vitamin C, Lipitor, Dulcolax, Pulmicort, Wellbutrin, chlorhexidine, vitamin D3, Flexeril, Farxiga, ertapenem, ferrous sulfate, formoterol, Lasix, Neurontin, heparin, Dilaudid, insulin, DuoNeb, magnesium, metoprolol, Singulair, Narcan, Zofran, Protonix, Paxil, potassium pr otocol, and Senokot. Progress note dated June 21, 2024. 58-year-old male again seen in room 255. In my opinion, the patient is not yet ready to be extubated, despite the fact that he is has some reasonable success with weaning trials. His overall mental status is poor, and he still has issues with secretions. He apparently is scheduled for tracheostomy and PEG tube in the morning. His ventilator settings include volume assist-control, rate 20, tidal volume 500, FiO2 40%, PEEP of 5. Blood gases this morning show pO2 of 94, pCO2 44, pH is 7.47. His CPAP trial was pressure support of 7, CPAP of 5, and 40%. The patient is on saline at KVO, IV heparin, and propofol, at 30 mcg/kg/min. He is getting vital high-protein at 40, which is goal. Current labs include a white count 7.3, hemoglobin 9.5, hematocrit 37.6, and platelet count of 689,000. Sodium 139, potassium 3.9, chlorides 105, CO2 28, BUN 17, creatinine 0.40. Glucose is 110. Calcium is 8.5. Wound cultures were positive for ESBL Escherichia coli. Chest x-ray shows some patchy infiltrates. Patient was seen today on 06/22/2024, remains in the ICU, intubated and mechanically ventilated. Patient is on assist-control rate of 20 tidal volume 500 FiO2 40% and PEEP of 5 ABG showed a pO2 of 69 pCO2 40 0 pH of 7.50. Patient remains on propofol at 40 mcg/kg/min, remains on ertapenem, patient had a PICC line placed today, and he is supposed to have tracheostomy today as already arranged for by Dr. Lopez. Apparently the patient has been failure to wean, this failure was felt to be secondary to significant amount of secretions that the patient had, and also related to mental status/CVA. Again the patient is scheduled to have a PEG tube and tracheostomy today. I am not planning any weaning trials on the patient today. Reviewed all his labs and a chest x- ray.WBC count is 7.7 hemoglobin is 11.8. Basic metabolic profile is relatively normal renal profile is normal chest x-ray showed mild pulmonary vascular conge stion, it also showed some patchy atelectasis or consolidation of the right lung base patient include Lipitor, Dulcolax, Pulmicort, Wellbutrin, Peridex, vitamin D3, Flexeril, farXCIGA, Triptafen-M, iron, Perforomist, Lasix 40 mg p.o. daily, gabapentin, heparin, nebulized Atrovent, NovoLog insulin, Dilaudid, LR, Lopressor, Singulair, Protonix, Paxil, propofol and Senokot. Patient was evaluated today on 06/23/24, patient is now status post tracheostomy, PEG tube placement, PICC line placement, remains on the vent, seems to be now synchronous with the ventilator, and I had to increase his propofol. His gases are marginal with a pO2 of 73 pCO2 41 pH of 7.47 his O2 saturation is marginal and he is on assist-control rate of 20 tidal volume 500 FiO2 60% PEEP of 5 which I increased to 8. Patient is on propofol at 50 mcg/kg/min, increased to 75 mcg/kg/min. Remains on Invanz remains on enteral feeding, and this will be restarted today via PEG tube. Considering the gases considering the chest x-ray and considering the overall clinical appearance of the patient, I do not believe he is ready to be weaned, actually the patient needs more sedation to make sure that he is synchronous with the ventilator. WBC count is 10.2 hemoglobin 11.7 electrolytes are normal, renal profile is normal. Chest x-ray showed tracheostomy in proper position, slight opacities persist. Mostly atelectasis, possible pneumonia Patient was evaluated today on 06/24/2024, patient remained ICU, intubated, mechanically ventilated, tracheostomy is intact. Patient is on assist-control rate of 20 tidal volume 500 FiO2 50% PEEP 8 ABG showed a pO2 of 101 pCO2 49 pH of 7.40 hence FiO2 was cut down to 45% and PEEP Down to 5 remains on propofol at 55 mcg/kg/min, off norepinephrine, patient remains in atrial fibrillation, rate is fairly well-controlled. Patient also remains on Invanz, and that is being addressed by infectious disease. WBC count is 10.3 hemoglobin 12.5. Platelets are 483. Metabolic profile and renal profile are normal Patient was evaluated today on , remains intubated, mechanically trish tilated, on assist-control rate of 20 tidal volume 500 FiO2 45% PEEP of 5 ABG showed a pO2 of 89 pCO2 42 pH of 7.47. Remains on propofol at 30 mcg/kg/min remains on LR at 20 cc/h, 6 and receiving vital HP for enteral feeding/nutritional support. Today will give the patient a trial of weaning with IMV of 10 and pressure support of 10, and if tolerated will eventually transition to pressure support and CPAP. If not tolerated the patient will go back on assist-control mode of mechanical ventilation. His mental status is marginal, patient is not following any instructions, nonetheless he is on propofol which I plan to discontinue and give the patient a sedation interruption/holiday. Chest x-ray is showing improvement labs are normal CBC is relatively normal renal profile is normal patient does have history of cardiomyopathy and LV dysfunction with ejection fraction of 25% but he is not in heart failure at present looking at his chest x-ray. Objective - Vital Signs Vital signs: Vital Signs Temp 99.5 F 06/25/24 12:00 Pulse 95 06/25/24 12:00 Resp 20 06/25/24 12:00 BP 92/56 06/25/24 12:00 Pulse Ox 98 06/25/24 12:00 FiO2 45 06/25/24 12:00 Intake & Output 06/24/24 06/25/24 06/25/24 18:59 06:59 18:59 Intake Total 735.798 658.675 281.963 Output Total 1300 525 340 Balance -564.202 133.675 -58.037 Weight 104.5 kg Intake: IV 290 240 130 Ertapenem 1 gm In Sodium 50 50 Chloride 0.9% 50 ml @ 100 mls/hr IVPB DAILY [facility] Rx #:[id number] Lactated Ringers 1,000 ml 240 240 80 @ 20 mls/hr IV .Q24H [facility] Rx#:[id number] Intake, IV Titration 205.798 238.675 71.963 Amount propofoL 1,000 mg In 205.798 238.675 71.963 Empty Bag 1 bag @ 75 MCG/ KG/MIN 51.525 mls/hr IV . Q1H57M [facility] Rx#:[id number] Tube Feeding 120 120 50 Other 120 60 30 Output: Urine 1300 525 340 Other: Voiding Method Indwelling Catheter Indwelling Catheter # Bowel Movements 1 ABP, PAP, CO, CI - Last Documented Arterial Blood Pressure 106/58 - Exam General: 58-year-old white male intubated mechanically ventilated. Head: Atraumatic, normocephalic HEENT: PERRLA, EOMI, nonicteric, no neck masses, no JVD, gastric tube is intact. Tracheostomy is intact. Skin: Skin is warm and dry and no rashes or lesions are noted. Cardiovascular: Irregular rhythm, no S3 gallop, 2/6 systolic murmur throughout the precordium Respiratory: Diminished breath sounds at the bases, no crackles, no rhonchi no wheezes Gastrointestinal: Soft nontender no megaly no rebound no guarding new PEG tube is noted. Seems to be intact Musculoskeletal: No deformities, could not assess strength, patient is sedated Neurological: Could not fully assess, sedated, on propofol, patient opens eyes b ut does not follow any instructions Psychiatric: Could not fully assess - Labs CBC & Chem 7: 06/25/24 06:11 06/25/24 06:11 Labs: Abnormal Lab Results - Last 24 Hours (Table) 06/24/24 06/25/24 06/25/24 Range/Units 17:30 05:59 06:11 RBC 4.22 L (4.30-5.90) m/uL Hgb 11.8 L (13.0-17.5) gm/dL Hct 37.6 L (39.0-53.0) % RDW 16.9 H (11.5-15.5) % Lymphocytes # 0.9 L (1.0-4.8) k/uL ABG pH (7.35-7.45) ABG HCO3 (21-25) mmol/L ABG Total CO2 (19-24) mmol/L ABG O2 Saturation (94-97) % Creatinine (0.66-1.25) mg/dL POC Glucose (mg/dL) 114 H 124 H (70-110) mg/dL Total Bilirubin (0.2-1.3) mg/dL Alkaline Phosphatase (38-126) U/L Total Protein (6.3-8.2) g/dL Albumin (3.5-5.0) g/dL 06/25/24 06/25/24 06/25/24 Range/Units 06:11 06:31 11:17 RBC (4.30-5.90) m/uL Hgb (13.0-17.5) gm/dL Hct (39.0-53.0) % RDW (11.5-15.5) % Lymphocytes # (1.0-4.8) k/uL ABG pH 7.47 H (7.35-7.45) ABG HCO3 31 H (21-25) mmol/L ABG Total CO2 32 H (19-24) mmol/L ABG O2 Saturation 97.5 H (94-97) % Creatinine 0.38 L (0.66-1.25) mg/dL POC Glucose (mg/dL) 123 H (70-110) mg/dL Total Bilirubin 1.6 H (0.2-1.3) mg/dL Alkaline Phosphatase 146 H (38-126) U/L Total Protein 5.5 L (6.3-8.2) g/dL Albumin 3.1 L (3.5-5.0) g/dL Assessment and Plan Assessment: Impression: Acute hypoxic respiratory failure, multifactorial secondary to underlying COPD, congestive heart failure with reduced ejection fraction, based on chest x-ray today. Respiratory fall with L2 vertebral compression fracture Postoperative day # 15 following revision of T10 to pelvis decompression and fusion with stabilization Acute left frontal parietal ischemic CVA ESBL E. coli wound infection, remains on Invanz Recent L2 to pelvis posterior lateral decompression and fusion on 05/19/2024 Congestive heart failure with reduced ejection fraction/acute Chronic atrial fibrillation Benign essential hypertension Dyslipidemia Type 2 diabetes Obesity with BMI of 38.4 Obstructive sleep apnea syndrome Ex-smoker Remote history of prior C2-T2 decompression and fusion Failure to wean status post tracheostomy on 06/22/2024 Recommendation: Will try to transition assist-control mode of mechanical ventilation to IMV with pressure support, and if tolerated further recommendations will follow in the meantime continue ventilatory support Continue present supportive care measures Continue nutritional support via PEG Continue tracheostomy care Continue GI and DVT prophylaxis Continue antibioticsl For ESBL E. coli in the wound/positive wound culture for E. coli Patient remains critically ill Critical care time is over 30 Time with Patient: Greater than 30
--- NOTE | 2024-06-25 12:59 | P.PN ---
Subjective Progress Note Date: 06/24/24 Principal diagnosis: Reason for follow-up is lumbar surgical site infection ESBL E. coli Patient is a 58-year-old male with a past medical history significant for diabetes mellitus hypertension COPD atrial fibrillation sleep apnea initially presented to hospital with back pain has been diagnosed with L1-L3 fracture status post extensive surgery and surgical cultures came back positive with ESBL E. coli prompted this consultation.Patient is status post tracheostomy and PEG tube completed on 06/22/2024. On today's evaluation that is 06/24/2024, patient has been afebrile, patient is currently breathing through the trach FiO2 currently at 45% no significant purulent secretions through the trach diarrhea or any other change reported by the nursing staff. Patient white count is 10.3 creatinine is 0.42 chest x-ray this morning shows improvement Objective - Vital Signs Vital signs: Vital Signs Temp 98.8 F 06/24/24 08:00 Pulse 96 06/24/24 10:00 Resp 22 06/24/24 10:00 BP 113/77 06/24/24 10:00 Pulse Ox 96 06/24/24 10:00 FiO2 50 06/24/24 08:51 Intake & Output 06/23/24 06/24/24 06/24/24 18:59 06:59 18:59 Intake Total 781.760 4460.461 306.011 Output Total 1520 965 395 Balance -528.080 41.461 -88.989 Weight 105 kg 104.8 kg Intake: IV 290 240 130 Ertapenem 1 gm In Sodium 50 50 Chloride 0.9% 50 ml @ 100 mls/hr IVPB DAILY [facility] Rx #:[id number] Lactated Ringers 1,000 ml 240 240 80 @ 20 mls/hr IV .Q24H [facility] Rx#:[id number] Intake, IV Titration 561.920 556.461 136.011 Amount Norepinephrine 4 mg In 66.599 33.66 Sodium Chloride 0.9% 250 ml @ 0.03 MCG/KG/MIN 13. 087 mls/hr IV .[id number] [facility] Rx#:[id number] propofoL 1,000 mg In 495.321 522.801 136.011 Empty Bag 1 bag @ 75 MCG/ KG/MIN 51.525 mls/hr IV . Q1H57M [facility] Rx#:[id number] Tube Feeding 80 120 40 Other 60 90 Output: Urine 1520 965 395 Other: Voiding Method Indwelling Catheter Indwelling Catheter Indwelling Catheter ABP, PAP, CO, CI - Last Documented Arterial Blood Pressure 106/58 - Exam GENERAL DESCRIPTION: Middle-age male intubated on the vent RESPIRATORY SYSTEM: Unlabored breathing , decreased breath sounds at bases HEART: S1 S2 regular rate and rhythm , ABDOMEN: Soft , no tenderness EXTREMITIES: No edema feet - Labs CBC & Chem 7: 06/25/24 06:11 06/25/24 06:11 Labs: Abnormal Lab Results - Last 24 Hours (Table) 06/23/24 06/24/24 06/24/24 Range/Units 11:17 05:43 05:43 Hgb 12.5 L (13.0-17.5) gm/dL MCHC 30.6 L (31.0-37.0) g/dL RDW 16.5 H (11.5-15.5) % Plt Count 483 H (150-450) k/uL Neutrophils # 8.3 H (1.3-7.7) k/uL ABG pCO2 (35-45) mmHg ABG HCO3 (21-25) mmol/L ABG Total CO2 (19-24) mmol/L ABG O2 Saturation (94-97) % Creatinine 0.42 L (0.66-1.25) mg/dL Glucose 114 H (74-99) mg/dL POC Glucose (mg/dL) 118 H (70-110) mg/dL 06/24/24 06/24/24 Range/Units 05:49 06:17 Hgb (13.0-17.5) gm/dL MCHC (31.0-37.0) g/dL RDW (11.5-15.5) % Plt Count (150-450) k/uL Neutrophils # (1.3-7.7) k/uL ABG pCO2 49 H (35-45) mmHg ABG HCO3 30 H (21-25) mmol/L ABG Total CO2 31 H (19-24) mmol/L ABG O2 Saturation 97.9 H (94-97) % Creatinine (0.66-1.25) mg/dL Glucose (74-99) mg/dL POC Glucose (mg/dL) 119 H (70-110) mg/dL Assessment and Plan (1) Surgical site infection Current Visit: Yes Status: Acute Priority: High Code(s): T81.49XA - INFECTION FOLLOWING A PROCEDURE, OTHER SURGICAL SITE, INIT SNOMED Code(s): 96334887 (2) Infection due to ESBL-producing Escherichia coli Current Visit: Yes Status: Acute Priority: High Code(s): A49.8 - OTHER BACTERIAL INFECTIONS OF UNSPECIFIED SITE; Z16.12 - EXTENDED SPECTRUM BETA LACTAMASE (ESBL) RESISTANCE SNOMED Code(s): 761490902 Plan: 1patient presented to the hospital with back pain more than a week ago from initial evaluation in this patient who did have extensive lumbosacral spine surgery now has been taken back to the OR noticed to have hardware failure fracture of the vertebra s/p redo surgery and culture which has been finalized as ESBL E. coli 2-patient remains to be afebrile white count has been normal blood sputum culture has been negative 3patient is s/p for trach and PEG completed on 06/22/2024, 4-patient to continue with Invanz to finish his course of therapy chest x-ray finding could be related to atelectasis with already showing improvement this morning and will monitor closely Dictation was produced using [employer] dictation software. please excuse any grammatical, word or spelling errors. Time with Patient: Less than 30
--- NOTE | 2024-06-25 13:00 | P.PN ---
Subjective Progress Note Date: 06/25/24 Principal diagnosis: Reason for follow-up is lumbar surgical site infection ESBL E. coli Patient is a 58-year-old male with a past medical history significant for diabetes mellitus hypertension COPD atrial fibrillation sleep apnea initially presented to hospital with back pain has been diagnosed with L1-L3 fracture status post extensive surgery and surgical cultures came back positive with ESBL E. coli prompted this consultation.Patient is status post tracheostomy and PEG tube completed on 06/22/2024. On today's evaluation that is 06/25/2024, Patient did have a low-grade fever of 100 F last evening however the patient is afebrile this morning patient remains to be debated on the vent through the trach patient remains to be unresponsive unable to provide any history FiO2 is currently stable at 45% no diarrhea or any other change reported by nursing staff. Patient white count is 9.3 with a creatinine 0.38 Objective - Vital Signs Vital signs: Vital Signs Temp 99.5 F 06/25/24 12:00 Pulse 95 06/25/24 12:00 Resp 20 06/25/24 12:00 BP 92/56 06/25/24 12:00 Pulse Ox 98 06/25/24 12:00 FiO2 45 06/25/24 12:00 Intake & Output 06/24/24 06/25/24 06/25/24 18:59 06:59 18:59 Intake Total 735.798 658.675 281.963 Output Total 1300 525 340 Balance -564.202 133.675 -58.037 Weight 104.5 kg Intake: IV 290 240 130 Ertapenem 1 gm In Sodium 50 50 Chloride 0.9% 50 ml @ 100 mls/hr IVPB DAILY [facility] Rx #:[id number] Lactated Ringers 1,000 ml 240 240 80 @ 20 mls/hr IV .Q24H [facility] Rx#:[id number] Intake, IV Titration 205.798 238.675 71.963 Amount propofoL 1,000 mg In 205.798 238.675 71.963 Empty Bag 1 bag @ 75 MCG/ KG/MIN 51.525 mls/hr IV . Q1H57M [facility] Rx#:[id number] Tube Feeding 120 120 50 Other 120 60 30 Output: Urine 1300 525 340 Other: Voiding Method Indwelling Catheter Indwelling Catheter Indwelling Catheter # Bowel Movements 1 ABP, PAP, CO, CI - Last Documented Arterial Blood Pressure 106/58 - Exam GENERAL DESCRIPTION: Middle-age male intubated on the vent RESPIRATORY SYSTEM: Unlabored breathing , decreased breath sounds at bases HEART: S1 S2 regular rate and rhythm , ABDOMEN: Soft , no tenderness EXTREMITIES: No edema feet - Labs CBC & Chem 7: 06/25/24 06:11 06/25/24 06:11 Labs: Abnormal Lab Results - Last 24 Hours (Table) 06/24/24 06/25/24 06/25/24 Range/Units 17:30 05:59 06:11 RBC 4.22 L (4.30-5.90) m/uL Hgb 11.8 L (13.0-17.5) gm/dL Hct 37.6 L (39.0-53.0) % RDW 16.9 H (11.5-15.5) % Lymphocytes # 0.9 L (1.0-4.8) k/uL ABG pH (7.35-7.45) ABG HCO3 (21-25) mmol/L ABG Total CO2 (19-24) mmol/L ABG O2 Saturation (94-97) % Creatinine (0.66-1.25) mg/dL POC Glucose (mg/dL) 114 H 124 H (70-110) mg/dL Total Bilirubin (0.2-1.3) mg/dL Alkaline Phosphatase (38-126) U/L Total Protein (6.3-8.2) g/dL Albumin (3.5-5.0) g/dL 06/25/24 06/25/24 06/25/24 Range/Units 06:11 06:31 11:17 RBC (4.30-5.90) m/uL Hgb (13.0-17.5) gm/dL Hct (39.0-53.0) % RDW (11.5-15.5) % Lymphocytes # (1.0-4.8) k/uL ABG pH 7.47 H (7.35-7.45) ABG HCO3 31 H (21-25) mmol/L ABG Total CO2 32 H (19-24) mmol/L ABG O2 Saturation 97.5 H (94-97) % Creatinine 0.38 L (0.66-1.25) mg/dL POC Glucose (mg/dL) 123 H (70-110) mg/dL Total Bilirubin 1.6 H (0.2-1.3) mg/dL Alkaline Phosphatase 146 H (38-126) U/L Total Protein 5.5 L (6.3-8.2) g/dL Albumin 3.1 L (3.5-5.0) g/dL Assessment and Plan (1) Surgical site infection Current Visit: Yes Status: Acute Priority: High Code(s): T81.49XA - INFECTION FOLLOWING A PROCEDURE, OTHER SURGICAL SITE, INIT SNOMED Code(s): 64010815 (2) Infection due to ESBL-producing Escherichia coli Current Visit: Yes Status: Acute Priority: High Code(s): A49.8 - OTHER BACTERIAL INFECTIONS OF UNSPECIFIED SITE; Z16.12 - EXTENDED SPECTRUM BETA LACTAMASE (ESBL) RESISTANCE SNOMED Code(s): 396835961 Plan: 1patient presented to the hospital with back pain more than a week ago from initial evaluation in this patient who did have extensive lumbosacral spine surgery now has been taken back to the OR noticed to have hardware failure fracture of the vertebra s/p redo surgery and culture which has been finalized as ESBL E. coli 2-patient remains to be afebrile white count has been normal blood sputum culture has been negative 3patient is s/p for trach and PEG completed on 06/22/2024, 4-patient to continue with Invanz, with the patient having a low-grade fever and some pulmonary atelectasis questionably pulmonary source will obtain a sputum culture and check a procalcitonin Dictation was produced using [employer] dictation software. please excuse any grammatical, word or spelling errors. Time with Patient: Less than 30
--- NOTE | 2024-06-25 13:25 | P.PN ---
Subjective Progress Note Date: 06/25/24 Principal diagnosis: Hardware failure lumbar spine L2-L3 fracture History of recent [id number] decompression and fusion and open bilateral SI joint fusion Patient seen and examined this morning in the ICU. Patient is currently resting in bed and continues on mechanical ventilation via tracheostomy. Patient does appear more relaxed today with his eyes open. When financial writer asked patient if he knew who I was, he did nod his head in a "yes" motion, although patient is unable to follow commands. Patient's vital signs are stable. Dr. Jeffrey present to assess incision. Surgical incision to the lumbar spine is well- approximated, majority of sutures have been removed. Some sutures are left at the inferior portion of the incision. Stage I pressure wound is developing in the lower lumbar region. New surgical dressing has been applied. Patient did have a liquid bowel movement prior to dressing change. RN was present to assist. Patient tolerated turning activity well. Objective - Vital Signs Vital signs: Vital Signs Temp 99.5 F 06/25/24 12:00 Pulse 95 06/25/24 12:00 Resp 20 06/25/24 12:00 BP 92/56 06/25/24 12:00 Pulse Ox 98 06/25/24 12:00 FiO2 45 06/25/24 12:00 Intake & Output 06/24/24 06/25/24 06/25/24 18:59 06:59 18:59 Intake Total 735.798 658.675 281.963 Output Total 1300 525 340 Balance -564.202 133.675 -58.037 Weight 104.5 kg Intake: IV 290 240 130 Ertapenem 1 gm In Sodium 50 50 Chloride 0.9% 50 ml @ 100 mls/hr IVPB DAILY [facility] Rx #:[id number] Lactated Ringers 1,000 ml 240 240 80 @ 20 mls/hr IV .Q24H [facility] Rx#:[id number] Intake, IV Titration 205.798 238.675 71.963 Amount propofoL 1,000 mg In 205.798 238.675 71.963 Empty Bag 1 bag @ 75 MCG/ KG/MIN 51.525 mls/hr IV . Q1H57M [facility] Rx#:[id number] Tube Feeding 120 120 50 Other 120 60 30 Output: Urine 1300 525 340 Other: Voiding Method Indwelling Catheter Indwelling Catheter Indwelling Catheter # Bowel Movements 1 ABP, PAP, CO, CI - Last Documented Arterial Blood Pressure 106/58 - Exam Physical Examination General: The patient is on mechanical ventilation via tracheostomy. Left upper extremity is restrained at this time to protect airway and lines. Patient is able to spontaneously move his left upper extremity. Patient remains unable to follow commands at this time. Patient is now opening his eyes and is tracking activity intermittently. Skin: Skin is warm and dry. Surgical incision to the thoracolumbar spine, edges are well-approximated. Majority of sutures have been removed, some have been left at the inferior portion of the lumbar incision. There is a stage I pressure wound developing in the lower lumbar area. PRAFO boots remain on bilateral lower extremities. - Labs CBC & Chem 7: 06/25/24 06:11 06/25/24 06:11 Labs: Abnormal Lab Results - Last 24 Hours (Table) 06/24/24 06/25/24 06/25/24 Range/Units 17:30 05:59 06:11 RBC 4.22 L (4.30-5.90) m/uL Hgb 11.8 L (13.0-17.5) gm/dL Hct 37.6 L (39.0-53.0) % RDW 16.9 H (11.5-15.5) % Lymphocytes # 0.9 L (1.0-4.8) k/uL ABG pH (7.35-7.45) ABG HCO3 (21-25) mmol/L ABG Total CO2 (19-24) mmol/L ABG O2 Saturation (94-97) % Creatinine (0.66-1.25) mg/dL POC Glucose (mg/dL) 114 H 124 H (70-110) mg/dL Total Bilirubin (0.2-1.3) mg/dL Alkaline Phosphatase (38-126) U/L Total Protein (6.3-8.2) g/dL Albumin (3.5-5.0) g/dL 06/25/24 06/25/24 06/25/24 Range/Units 06:11 06:31 11:17 RBC (4.30-5.90) m/uL Hgb (13.0-17.5) gm/dL Hct (39.0-53.0) % RDW (11.5-15.5) % Lymphocytes # (1.0-4.8) k/uL ABG pH 7.47 H (7.35-7.45) ABG HCO3 31 H (21-25) mmol/L ABG Total CO2 32 H (19-24) mmol/L ABG O2 Saturation 97.5 H (94-97) % Creatinine 0.38 L (0.66-1.25) mg/dL POC Glucose (mg/dL) 123 H (70-110) mg/dL Total Bilirubin 1.6 H (0.2-1.3) mg/dL Alkaline Phosphatase 146 H (38-126) U/L Total Protein 5.5 L (6.3-8.2) g/dL Albumin 3.1 L (3.5-5.0) g/dL Assessment and Plan Assessment: Postop day 16 : Revision [id number] decompression and fusion with T8 kyphoplasty Acute/subacute stroke Multiple complex medical comorbidities Plan: -Appreciate media consultant outside sales and team management. -Activity: Bedrest at this time, Turn and reposition patient q2hrs -Neuro checks every 2 hours -Pain control: Adequate at this time -Meds: reviewed -GI ppx: senna -DVT PPX: TEDs, SCDs, Heparin -Hygiene: Maintain dressing clean and dry. Meticulous cleaning after BMs away from the incision site *I reviewed and discussed this case with my attending Dr. Jeffrey, whom has reviewed this chart and films and is in agreement with assessment and plan of care as outlined above. I have personally seen and examined the patient, performed the documentation and the assessment and plan as written. Number of minutes spent on the visit: 20m.
--- NOTE | 2024-06-25 13:30 | P.PN ---
Subjective Progress Note Date: 06/25/24 CHIEF COMPLAINT: Fall HISTORY OF PRESENT ILLNESS: Patient remains in the ICU intubated and on mechanical ventilation. Patient status post tracheostomy and PEG tube placement patient undergoing sedation holiday today. He is on tube feeds at 10 mL/h. Patient is tolerating tube feeds PHYSICAL EXAM: VITAL SIGNS: Reviewed. GENERAL: no acute distress. Neck: Tracheostomy site clean dry and intact ABDOMEN: Soft. Nondistended. Nontender. PEG tube site clean dry and intact ASSESSMENT: 1. Respiratory failure. Difficulty weaning from the vent. Status post trach 2. Moderate protein calorie malnutrition 3. Status post revision of spinal surgery 4. CVA PLAN: -Continue to titrate tube feeds per dietitian -Continue supportive care Physician Can Carrier note has been reviewed by physician. Signing provider agrees with the documented findings, assessment, and plan of care. Objective - Vital Signs Vital signs: Vital Signs Temp 99.5 F 06/25/24 12:00 Pulse 95 06/25/24 12:00 Resp 20 06/25/24 12:00 BP 92/56 06/25/24 12:00 Pulse Ox 98 06/25/24 12:00 FiO2 45 06/25/24 12:00 Intake & Output 06/24/24 06/25/24 06/25/24 18:59 06:59 18:59 Intake Total 735.798 658.675 371.963 Output Total 1300 525 460 Balance -564.202 133.675 -88.037 Weight 104.5 kg Intake: IV 290 240 170 Ertapenem 1 gm In Sodium 50 50 Chloride 0.9% 50 ml @ 100 mls/hr IVPB DAILY [facility] Rx #:[id number] Lactated Ringers 1,000 ml 240 240 120 @ 20 mls/hr IV .Q24H [facility] Rx#:[id number] Intake, IV Titration 205.798 238.675 71.963 Amount propofoL 1,000 mg In 205.798 238.675 71.963 Empty Bag 1 bag @ 75 MCG/ KG/MIN 51.525 mls/hr IV . Q1H57M [facility] Rx#:[id number] Tube Feeding 120 120 70 Other 120 60 60 Output: Urine 1300 525 460 Other: Voiding Method Indwelling Catheter Indwelling Catheter Indwelling Catheter # Bowel Movements 1 ABP, PAP, CO, CI - Last Documented Arterial Blood Pressure 106/58 - Labs CBC & Chem 7: 06/25/24 06:11 06/25/24 06:11 Labs: Abnormal Lab Results - Last 24 Hours (Table) 06/24/24 06/25/24 06/25/24 Range/Units 17:30 05:59 06:11 RBC 4.22 L (4.30-5.90) m/uL Hgb 11.8 L (13.0-17.5) gm/dL Hct 37.6 L (39.0-53.0) % RDW 16.9 H (11.5-15.5) % Lymphocytes # 0.9 L (1.0-4.8) k/uL ABG pH (7.35-7.45) ABG HCO3 (21-25) mmol/L ABG Total CO2 (19-24) mmol/L ABG O2 Saturation (94-97) % Creatinine (0.66-1.25) mg/dL POC Glucose (mg/dL) 114 H 124 H (70-110) mg/dL Total Bilirubin (0.2-1.3) mg/dL Alkaline Phosphatase (38-126) U/L Total Protein (6.3-8.2) g/dL Albumin (3.5-5.0) g/dL 06/25/24 06/25/24 06/25/24 Range/Units 06:11 06:31 11:17 RBC (4.30-5.90) m/uL Hgb (13.0-17.5) gm/dL Hct (39.0-53.0) % RDW (11.5-15.5) % Lymphocytes # (1.0-4.8) k/uL ABG pH 7.47 H (7.35-7.45) ABG HCO3 31 H (21-25) mmol/L ABG Total CO2 32 H (19-24) mmol/L ABG O2 Saturation 97.5 H (94-97) % Creatinine 0.38 L (0.66-1.25) mg/dL POC Glucose (mg/dL) 123 H (70-110) mg/dL Total Bilirubin 1.6 H (0.2-1.3) mg/dL Alkaline Phosphatase 146 H (38-126) U/L Total Protein 5.5 L (6.3-8.2) g/dL Albumin 3.1 L (3.5-5.0) g/dL
[2024-06-25 18:22] LABS: Glucose,Whole Blood 86 mg/dL (70-110)
--- NOTE | 2024-06-25 21:42 | P.PN ---
Subjective Progress Note Date: 06/25/24 HPI 58-year-old male with multiple comorbidities known to Dr. Menard. Cardiology was consulted for perioperative clearance initially after patient suffered a mechanical fall and suffered a lumbar spine fracture. Patient thereafter underwent a L1 L2 fracture and diversion of T10 through pelvic decompression and fusion with stabilization. Patient was thereafter transferred to ICU and was maintained on ventilator support. Patient had difficulty getting weaned off ventilator support. There was a concern of possible stroke postoperatively. Patient's initial echocardiogram showed severe cardiomyopathy with EF of 25 to 30%. Repeat echocardiogram after stroke showed an EF of 45% with no evidence of LV thrombus. Patient also maintained to have persistent atrial fibrillation. June 23, 2024 Cardiology was reconsulted today because patient was having labile blood pressure and heart rates. Patient is post trach and PEG, and postoperatively patient had lower blood pressure and more agitation. For this his propofol was increased. After increasing propofol patient's blood pressure dropped for which she was placed on norepinephrine. Since being placed on norepinephrine he is having a labile heart rate of around 110 bpm. June 24, 2024 BP 120 over 69 mmHg, heart rate 120 bpm, continues to be in atrial fibrillation with RVR. Still continues to be on ventilator support, Jun 25, 2024 Patient is seen and examined at bedside this a.m. Patient is maintained on ventilator support with tracheostomy and peg tube in place. Blood pressure is controlled, heart rate is better controlled today. Continues to be in atrial fibrillation rate controlled. Plan for possible spontaneous breathing trial tomorrow PHYSICAL EXAMINATION Cardiac exam irregular pulse, S1-S2 is audible, no significant murmurs appreciated Lung exam: On vent support, mild crackles audible in bilateral lung simental, no significant rhonchi or wheezing Neurological exam: No detailed exam was performed as patient is on propofol IMPRESSION: Atrial fibrillation with RVR Labile blood pressure, currently on norepinephrine, multifactorial from low EF, propofol use, postop state S/p trach and PEG S/p mechanical fall, s/p lumbar surgery Recent revision of L2 to pelvis posterior lateral decompression and fusion with bilateral open SI joint fusions on 05/19/2024 Hardware failure of L2-L3, status post L1-L2 revision and T10 through pelvis decompression and fusion Hyperlipidemia Diabetes Cardiomyopathy, unspecified type, EF 25 to 30% PLAN: Continue metoprolol 50 mg twice daily. Use norepinephrine to minimum. See if we can cut down on propofol, and that we will be able to wean him down off norepinephrine. As norepinephrine will be reduced his heart rate will be better controlled. Maintain potassium at 4, magnesium at 2, make sure patient is not getting acidotic Continue supportive ICU care Continue anticoagulation with Afua Martino MD, FAC, RPVI Thank you for allowing [facility] to participate in this patient's care. Please contact us in case of any followup questions. Objective - Vital Signs Vital signs: Vital Signs Temp 97.6 F 06/25/24 20:00 Pulse 95 06/25/24 21:00 Resp 26 H 06/25/24 21:00 BP 98/70 06/25/24 21:00 Pulse Ox 97 06/25/24 21:00 FiO2 45 06/25/24 20:04 Intake & Output 06/25/24 06/25/24 06/26/24 06:59 18:59 06:59 Intake Total 658.675 681.963 90 Output Total 525 735 80 Balance 133.675 -53.037 10 Weight 104.5 kg 104.5 kg Intake: IV 240 290 40 Ertapenem 1 gm In Sodium 50 Chloride 0.9% 50 ml @ 100 mls/hr IVPB DAILY [facility] Rx #:[id number] Lactated Ringers 1,000 ml 240 240 40 @ 20 mls/hr IV .Q24H [facility] Rx#:[id number] Intake, IV Titration 238.675 171.963 Amount propofoL 1,000 mg In 238.675 171.963 Empty Bag 1 bag @ 75 MCG/ KG/MIN 51.525 mls/hr IV . Q1H57M [facility] Rx#:[id number] Tube Feeding 120 130 20 Other 60 90 30 Output: Urine 525 735 80 Other: Voiding Method Indwelling Catheter Indwelling Catheter Indwelling Catheter # Bowel Movements 1 ABP, PAP, CO, CI - Last Documented Arterial Blood Pressure 106/58 - Labs CBC & Chem 7: 06/25/24 06:11 06/25/24 06:11 Labs: Abnormal Lab Results - Last 24 Hours (Table) 06/25/24 06/25/24 06/25/24 Range/Units 05:59 06:11 06:11 RBC 4.22 L (4.30-5.90) m/uL Hgb 11.8 L (13.0-17.5) gm/dL Hct 37.6 L (39.0-53.0) % RDW 16.9 H (11.5-15.5) % Lymphocytes # 0.9 L (1.0-4.8) k/uL ABG pH (7.35-7.45) ABG HCO3 (21-25) mmol/L ABG Total CO2 (19-24) mmol/L ABG O2 Saturation (94-97) % Creatinine 0.38 L (0.66-1.25) mg/dL POC Glucose (mg/dL) 124 H (70-110) mg/dL Total Bilirubin 1.6 H (0.2-1.3) mg/dL Alkaline Phosphatase 146 H (38-126) U/L Total Protein 5.5 L (6.3-8.2) g/dL Albumin 3.1 L (3.5-5.0) g/dL 06/25/24 06/25/24 Range/Units 06:31 11:17 RBC (4.30-5.90) m/uL Hgb (13.0-17.5) gm/dL Hct (39.0-53.0) % RDW (11.5-15.5) % Lymphocytes # (1.0-4.8) k/uL ABG pH 7.47 H (7.35-7.45) ABG HCO3 31 H (21-25) mmol/L ABG Total CO2 32 H (19-24) mmol/L ABG O2 Saturation 97.5 H (94-97) % Creatinine (0.66-1.25) mg/dL POC Glucose (mg/dL) 123 H (70-110) mg/dL Total Bilirubin (0.2-1.3) mg/dL Alkaline Phosphatase (38-126) U/L Total Protein (6.3-8.2) g/dL Albumin (3.5-5.0) g/dL
[2024-06-26 00:20] LABS: Glucose,Whole Blood 96 mg/dL (70-110)
[2024-06-26 06:03] LABS: ABG Base Excess 6.8 mmol/L; ABG HCO3 31 mmol/L (21-25); ABG Oxygen Saturation 98.4 % (94-97); ABG PCO2 42 mmHg (35-45); ABG PH 7.48 (7.35-7.45); ABG PO2 98 mmHg (83-108); ABG TCO2 32 mmol/L (19-24); Allen Test Performed? Yes
[2024-06-26 06:04] LABS: Anisocytosis Slight; Basophils % (A) 1 %; Eosinophils # (A) 0.2 k/uL (0-0.7); Eosinophils % (A) 3 %; HGB 11.9 gm/dL (13.0-17.5); Hypochromasia Marked; Lymphocytes # (A) 0.8 k/uL (1.0-4.8); Lymphocytes % (A) 11 %; MCHC 31.4 g/dL (31.0-37.0); MCV 89.3 fL (80.0-100.0); Mean Platelet Volume 7.1; Monocytes # (A) 0.6 k/uL (0-1.0); Monocytes % (A) 8 %; Neutrophils # (A) 5.7 k/uL (1.3-7.7); Neutrophils % (A) 76 %; Platelet Count 375 k/uL (150-450); RBC 4.26 m/uL (4.30-5.90); RDW 16.8 % (11.5-15.5); WBC 7.5 k/uL (3.8-10.6)
[2024-06-26 06:09] LABS: Glucose,Whole Blood 111 mg/dL (70-110)
[2024-06-26 06:35] LABS: African American GFR (CKD) >90 (>60 ml/min/1.73 sqM); Anion Gap 5 mmol/L; Blood Urea Nitrogen 19 mg/dL (9-20); Calcium 8.6 mg/dL (8.4-10.2); Carbon Dioxide 30 mmol/L (22-30); Chloride 104 mmol/L (98-107); Glucose 97 mg/dL (74-99); Non-African American GFR(CKD) >90 (>60 ml/min/1.73 sqM); Potassium 3.4 mmol/L (3.5-5.1); Sodium 139 mmol/L (137-145)
[2024-06-26] MEDS: POTASSIUM BICARBONATE/CIT AC 20 MEQ TABLET.EFF NG-TUBE SCH ×2 (06:47→15:22)
--- NOTE | 2024-06-26 07:54 | XR ---
EXAMINATION TYPE: XR chest 1V DATE OF EXAM: 06/26/2024 HISTORY: Shortness of breath. COMPARISON: 06/25/2024 TECHNIQUE: Single view of the chest is submitted. FINDINGS: Demonstrated are scattered senescent parenchymal change. There is no evidence for focal infiltrate. Tracheostomy tube and left-sided PICC line remain unchange d. The heart is stable. Hilar and mediastinal structures are within normal limits. Degenerative changes are seen of the dorsal spine. IMPRESSION: 1. Chronic changes without evidence for acute pulmonary disease.
--- NOTE | 2024-06-26 11:35 | P.PN ---
Subjective Progress Note Date: 06/26/24 Principal diagnosis: L2 vertebral body compression fracture, postoperative day 16 acute CVA Patient is a 58-year-old white male with past medical history significant for obstructive sleep apnea with home CPAP, COPD, ex tobacco smoker, marijuana smoker, atrial fibrillation with previous cardioversion and anticoagulated on Xarelto, diabetes mellitus, hypertension, heart failure, and previous spinal surgeries. His primary care provider is Dr. Deuce Brito. He is currently i ntubated to the mechanical ventilator, unable to provide any information for HPI. Of note, patient recently underwent an L2 to pelvis posterior lateral decompression and fusion on 05/19/2024 at [facility]. During this admission, he initially was recovered in the intensive care unit. Technically, difficult to extubate, and did require BiPAP support immediately after extubation. He was eventually discharged home on 05/26/2024. Patient returned the emergency department on 06/06/2024. On review of the ER documentation, he had a fall while at home. CT of the lumbar spine demonstrated new compression fracture of L2 vertebral body with compression of the vertebral body down to the pedicle screws bilaterally and loosening the left pedicle screw. New left pedicle/transverse process of L2 and L3 fractures around the hardware with mild displacement. Fractures of the right transverse process of L2 and L3. Likely postsurgical subcutaneous gas in the surgical bed. Patient underwent revision thoracic T10 to pelvis decompression fusion yesterday. Intraoperatively, patient had an EBL of 1 L. He has received a total of 5 units of PRBCs, 1 FFP, and 1 pack platelets. He was sent to the intensive care unit postoperatively. He remains on the mechanical ventilator. Chest x-ray shows the endotracheal tube approximately 4.3 cm above the shashank. There is cardiomegaly with pulmona ry vascular congestion suggested. No pleural effusions, pneumothoraces, focal consolidations. Initial ABG had a PaO2 of 80, pCO2 of 61, pH of 7.27. This was done on original ventilator settings of assist-control, respiratory rate 14, tidal volume 500, FiO2 1 9%, and PEEP of 5. My supervising physician is already increased the patient's respiratory rate to 20. He is currently synchronous with mechanical ventilator. There is a moderate amount of clear to white endotracheal secretions. Peak pressures 23. He is sedated with propofol which is currently infusing at 50 mcg/kg/min. He is fairly unarousable. Will withdraw to painful stimuli in all 4 extremities. There is also norepinephrine i nfusing at 0.02 mcg/kg/min. There is a MAP goal of 80 mmHg to support [employer] perfusion. LR is infusing at 10 MLS per hour. There is a Hemovac with a total of 220 serosanguineous output since surgery. We are awaiting postoperative labs. Preoperatively, CBC: WBC count 9.4, hemoglobin 9.6, hematocrit 32.5, platelets 516. Preoperative CMP: Sodium 137, potassium 4.1, chloride 104, serum bicarb 27, BUN 18, creatinine 0.61, glucose 143. LFTs unremarkable. Receiving prophylactic cefazolin. Note that preoperatively, patient did have a cardiac evaluation. Repeat echocardiogram shows a severely reduced left ventricular ejection fraction of 25 to 30% as well as mild mitral and tricuspid regurgita tion. Heart rhythm is atrial fibrillation with controlled ventricular response. Normally anticoagulated on Xarelto, however, this is on hold for surgery. Progress note dated June 20, 2024. 58-year-old male seen in room 255. The patient remains critically ill on the mechanical ventilator. Ventilator settings include volume assist-control, rate 20, tidal volume 500, FiO2 40%, PEEP of 5. Blood gases are currently pending. Patient continues on heparin via weight-based protocol, and tube feedings. In addition, the patient remains on propofol at 20 mcg/kg/min. Current laboratory data from June 20 are pending. Patient is able to tolerate. Pressure support and CPAP. Because of his poor mental status from a CVA, and airway secretions, it has been decided not to extubate the patient. Rather, the patient will have a tracheostomy and PEG tube placed on Saturday. Labs, x-rays, and all medications are reviewed. The patient also continues on ertapenem, for his ESBL Escherichia coli. Current medications include vitamin C, Lipitor, Dulcolax, Pulmicort, Wellbutrin, chlorhexidine, vitamin D3, Flexeril, Farxiga, ertapenem, ferrous sulfate, formoterol, Lasix, Neurontin, heparin, Dilaudid, insulin, DuoNeb, magnesium, metoprolol, Singulair, Narcan, Zofran, Protonix, Paxil, potassium protocol, and Senokot. Progress note dated June 21, 2024. 58-year-old male again seen in room 255. In my opinion, the patient is not yet ready to be extubated, despite the fact that he is has some reasonable success with weaning trials. His overall mental status is poor, and he still has issues with secretions. He apparently is scheduled for tracheostomy and PEG tube in the morning. His ventilator settings include volume assist-control, rate 20, tidal volume 500, FiO2 40%, PEEP of 5. Blood gases this morning show pO2 of 94, pCO2 44, pH is 7.47. His CPAP trial was pressure support of 7, CPAP of 5, and 40%. The patient is on saline at KVO, IV heparin, and propofol, at 30 mcg/kg/min. He is getting vital high-protein at 40, which is goal. Current labs include a white count 7.3, hemoglobin 9.5, hematocrit 37.6, and platelet count of 689,000. Sodium 139, potassium 3.9, chlorides 105, CO2 28, BUN 17, creatinine 0.40. Glucose is 110. Calcium is 8.5. Wound cultures were positive for ESBL Escherichia coli. Chest x-ray shows some patchy infiltrates. Patient was seen today on 06/22/2024, remains in the ICU, intubated and mechanically ventilated. Patient is on assist-control rate of 20 tidal volume 500 FiO2 40% and PEEP of 5 ABG showed a pO2 of 69 pCO2 40 0 pH of 7.50. Patient remains on propofol at 40 mcg/kg/min, remains on ertapenem, patient had a PICC line placed today, and he is supposed to have tracheostomy today as already arranged for by Dr. Lopez. Apparently the patient has been failure to wean, this failure was felt to be secondary to significant amount of secretions that the patient had, and also related to mental status/CVA. Again the patient is scheduled to have a PEG tube and tracheostomy today. I am not planning any weaning trials on the patient today. Reviewed all his labs and a chest x- ray.WBC count is 7.7 hemoglobin is 11.8. Basic metabolic profile is relatively normal renal profile is normal chest x-ray showed mild pulmonary vascular congestion, it also showed some patchy atelectasis or consolidation of the right lung base patient include Lipitor, Dulcolax, Pulmicort, Wellbutrin, Peridex, vitamin D3, Flexeril, farXCIGA, Triptafen-M, iron, Perforomist, Lasix 40 mg p.o. daily, gabapentin, heparin, nebulized Atrovent, NovoLog insulin, Dilaudid, LR, Lopressor, Singulair, Protonix, Paxil, propofol and Senokot. Patient was evaluated today on 06/23/24, patient is now status post tracheostomy, PEG tube placement, PICC line placement, remains on the vent, seems to be now synchronous with the ventilator, and I had to increase his propofol. His gases are marginal with a pO2 of 73 pCO2 41 pH of 7.47 his O2 saturation is marginal and he is on assist-control rate of 20 tidal volume 500 FiO2 60% PEEP of 5 which I increased to 8. Patient is on propofol at 50 mcg/kg/min, increased to 75 mcg/kg/min. Remains on Invanz remains on enteral feeding, and this will be restarted today via PEG tube. Considering the gases considering the chest x-ray and considering the overall clinical appearance of the patient, I do not believe he is ready to be weaned, actually the patient needs more sedation to make sure that he is synchronous with the ventilator. WBC count is 10.2 hemoglobin 11.7 electrolytes are normal, renal profile is normal. Chest x-ray showed tracheostomy in proper position, slight opacities persist. Mostly atelectasis, possible pneumonia Patient was evaluated today on 06/24/2024, patient remained ICU, intubated, mechanically ventilated, tracheostomy is intact. Patient is on assist-control rate of 20 tidal volume 500 FiO2 50% PEEP 8 ABG showed a pO2 of 101 pCO2 49 pH of 7.40 hence FiO2 was cut down to 45% and PEEP Down to 5 remains on propofol at 55 mcg/kg/min, off norepinephrine, patient remains in atrial fibrillation, rate is fairly well-controlled. Patient also remains on Invanz, and that is being addressed by infectious disease. WBC count is 10.3 hemoglobin 12.5. Platelets are 483. Metabolic profile and renal profile are normal Patient was evaluated today on , remains intubated, mechanically venti lated, on assist-control rate of 20 tidal volume 500 FiO2 45% PEEP of 5 ABG showed a pO2 of 89 pCO2 42 pH of 7.47. Remains on propofol at 30 mcg/kg/min remains on LR at 20 cc/h, 6 and receiving vital HP for enteral feeding/nutritional support. Today will give the patient a trial of weaning with IMV of 10 and pressure support of 10, and if tolerated will eventually transition to pressure support and CPAP. If not tolerated the patient will go back on assist-control mode of mechanical ventilation. His mental status is marginal, patient is not following any instructions, nonetheless he is on p ropofol which I plan to discontinue and give the patient a sedation interruption/holiday. Chest x-ray is showing improvement labs are normal CBC is relatively normal renal profile is normal patient does have history of cardiomyopathy and LV dysfunction with ejection fraction of 25% but he is not in heart failure at present looking at his chest x-ray. Patient was evaluated today on 06/26/2024, remains in the ICU, intubated and mechanically ventilated. He is on assist-control rate of 20 tidal volume 500 FiO2 45% and PEEP of 5 patient seems to be comfortable, not in distress, however mental status is extremely poor, patient does not follow any instructions. Eyes are open but patient does not follow any instructions as far as squeezing hands or wiggling toes or closing and opening eyes. Obviously he has a significant encephalopathy. ABG showed a pO2 of 98 pCO2 42 point of 7.48, hence no changes were made in the vent settings. Yesterday the patient did not tolerate much of weaning trial today I plan to change propofol to Precedex, and keep him on Precedex as well as assist-control mode of mechanical ventilation. His chest x- ray is showing improvement his labs are basically unremarkable. Remains on Invanz. Patient is going to be difficult to wean mostly because of his underlying neurological status/encephalopathy. Have to consider select care specialty for this patient in the long run. Objective - Vital Signs Vital signs: Vital Signs Temp 98.3 F 06/26/24 08:00 Pulse 94 06/26/24 08:08 Resp 21 06/26/24 08:00 BP 102/81 06/26/24 08:00 Pulse Ox 99 06/26/24 08:00 FiO2 45 06/26/24 08:00 Intake & Output 06/25/24 06/26/24 06/26/24 18:59 06:59 18:59 Intake Total 681.963 570.38 148.681 Output Total 735 385 65 Balance -53.037 185.38 83.681 Weight 104.5 kg 105.2 kg Intake: IV 290 220 40 Ertapenem 1 gm In Sodium 50 Chloride 0.9% 50 ml @ 100 mls/hr IVPB DAILY [facility] Rx #:[id number] Lactated Ringers 1,000 ml 240 220 40 @ 20 mls/hr IV .Q24H [facility] Rx#:[id number] Intake, IV Titration 171.963 150.38 58.681 Amount propofoL 1,000 mg In 171.963 150.38 58.681 Empty Bag 1 bag @ 75 MCG/ KG/MIN 51.525 mls/hr IV . Q1H57M [facility] Rx#:[id number] Tube Feeding 130 110 20 Other 90 90 30 Output: Urine 735 385 65 Other: Voiding Method Indwelling Catheter Indwelling Catheter Indwelling Catheter # Bowel Movements 1 ABP, PAP, CO, CI - Last Documented Arterial Blood Pressure 106/58 - Exam General: 58-year-old white male intubated mechanically ventilated. Head: Atraumatic, normocephalic HEENT: PERRLA, EOMI, nonicteric, no neck masses, no JVD, gastric tube is intact. Tracheostomy is intact. Skin: Skin is warm and dry and no rashes or lesions are noted. Cardiovascular: Irregular rhythm, no S3 gallop, 2/6 systolic murmur throughout the precordium Respiratory: Diminished breath sounds at the bases, no crackles, no rhonchi no wheezes Gastrointestinal: Soft nontender no megaly no rebound no guarding new PEG tube is noted. Seems to be intact Musculoskeletal: No deformities, could not assess strength Neurological: Opens eyes but does not follow any instructions Psychiatric: Could not fully assess - Labs CBC & Chem 7: 06/26/24 05:47 06/26/24 05:47 Labs: Abnormal Lab Results - Last 24 Hours (Table) 06/26/24 06/26/24 06/26/24 Range/Units 05:47 05:47 05:56 RBC 4.26 L (4.30-5.90) m/uL Hgb 11.9 L (13.0-17.5) gm/dL Hct 38.0 L (39.0-53.0) % RDW 16.8 H (11.5-15.5) % Lymphocytes # 0.8 L (1.0-4.8) k/uL ABG pH 7.48 H (7.35-7.45) ABG HCO3 31 H (21-25) mmol/L ABG Total CO2 32 H (19-24) mmol/L ABG O2 Saturation 98.4 H (94-97) % Potassium 3.4 L (3.5-5.1) mmol/L Creatinine 0.38 L (0.66-1.25) mg/dL POC Glucose (mg/dL) (70-110) mg/dL 06/26/24 Range/Units 06:08 RBC (4.30-5.90) m/uL Hgb (13.0-17.5) gm/dL Hct (39.0-53.0) % RDW (11.5-15.5) % Lymphocytes # (1.0-4.8) k/uL ABG pH (7.35-7.45) ABG HCO3 (21-25) mmol/L ABG Total CO2 (19-24) mmol/L ABG O2 Saturation (94-97) % Potassium (3.5-5.1) mmol/L Creatinine (0.66-1.25) mg/dL POC Glucose (mg/dL) 111 H (70-110) mg/dL Microbiology - Last 24 Hours (Table) 06/25/24 15:20 Gram Stain - Preliminary Sputum Assessment and Plan Assessment: Impression: Acute hypoxic respiratory failure, multifactorial secondary to underlying COPD, congestive heart failure with reduced ejection fraction, resolved Respiratory fall with L2 vertebral compression fracture Postoperative day # 16 following revision of T10 to pelvis decompression and fusion with stabilization Acute left frontal parietal ischemic CVA ESBL E. coli wound infection, remains on Invanz Recent L2 to pelvis posterior lateral decompression and fusion on 05/19/2024 Congestive heart failure with reduced ejection fraction/acute Chronic atrial fibrillation Benign essential hypertension Dyslipidemia Type 2 diabetes Obesity with BMI of 38.4 Obstructive sleep apnea syndrome Ex-smoker Remote history of prior C2-T2 decompression and fusion Failure to wean status post tracheostomy on 06/22/2024 patient seems to have profound encephalopathy related to his recent CVA Recommendation: Will recommend stopping propofol altogether and keep the patient on Precedex for now. Continue present supportive care measures Continue nutritional support via PEG Continue tracheostomy care Continue GI and DVT prophylaxis Continue antibioticsl For ESBL E. coli in the wound/positive wound culture for E. coli Patient remains critically ill Will have to eventually considers transfer to select care specialty, unlikely that the patient will wean easily from mechanical ventilation Critical care time is over 30 Time with Patient: Greater than 30
[2024-06-26 11:46] VITALS: BMI 35.2
[2024-06-26 11:50] LABS: Glucose,Whole Blood 104 mg/dL (70-110)
[2024-06-26] MEDS: DEXMEDETOMIDINE/0.9% NACL(PMX) 400 MCG in EMPTY BAG 1 BAG IV SCH (13:57)
[2024-06-26] MEDS: FUROSEMIDE 10 MG/ML 4 ML VIAL IV STA (13:58)
--- NOTE | 2024-06-26 16:38 | P.PN ---
Subjective Progress Note Date: 06/26/24 Principal diagnosis: Reason for follow-up is lumbar surgical site infection ESBL E. coli Patient is a 58-year-old male with a past medical history significant for diabetes mellitus hypertension COPD atrial fibrillation sleep apnea initially presented to hospital with back pain has been diagnosed with L1-L3 fracture status post extensive surgery and surgical cultures came back positive with ESBL E. coli prompted this consultation.Patient is status post tracheostomy and PEG tube completed on 06/22/2024. On today's evaluation that is 06/26/2024,the patient remains to be afebrile patient is on the ventilator through trach FiO2 currently 45% no significant purulent secretions through the ET patient requiring any pressor support after that has been reported. Patient white count is 7.5 creatinine 0.38 sputum cultures currently pending Objective - Vital Signs Vital signs: Vital Signs Temp 98.3 F 06/26/24 08:00 Pulse 101 H 06/26/24 15:17 Resp 24 06/26/24 15:00 BP 133/93 06/26/24 15:00 Pulse Ox 99 06/26/24 15:00 FiO2 45 06/26/24 15:06 Intake & Output 06/25/24 06/26/24 06/26/24 18:59 06:59 18:59 Intake Total 681.963 570.38 476.946 Output Total 735 385 445 Balance -53.037 185.38 31.946 Weight 104.5 kg 105.2 kg 105.2 kg Intake: IV 290 220 160 Ertapenem 1 gm In Sodium 50 Chloride 0.9% 50 ml @ 100 mls/hr IVPB DAILY [facility] Rx #:[id number] Lactated Ringers 1,000 ml 240 220 160 @ 20 mls/hr IV .Q24H [facility] Rx#:[id number] Intake, IV Titration 171.963 150.38 176.946 Amount Dexmedetomidine/0.9% NaCl 9.906 (Pmx) 400 mcg In Empty Bag 1 bag @ 0.2 MCG/KG/HR 5.26 mls/hr IV .Q19H1M [facility] Rx#:[id number] propofoL 1,000 mg In 171.963 150.38 167.040 Empty Bag 1 bag @ 75 MCG/ KG/MIN 51.525 mls/hr IV . Q1H57M [facility] Rx#:[id number] Tube Feeding 130 110 80 Other 90 90 60 Output: Urine 552 029 445 Other: Voiding Method Indwelling Catheter Indwelling Catheter Indwelling Catheter # Bowel Movements 1 ABP, PAP, CO, CI - Last Documented Arterial Blood Pressure 106/58 - Exam GENERAL DESCRIPTION: Middle-age male intubated on the vent RESPIRATORY SYSTEM: Unlabored breathing , decreased breath sounds at bases HEART: S1 S2 regular rate and rhythm , ABDOMEN: Soft , no tenderness EXTREMITIES: No edema feet - Labs CBC & Chem 7: 06/26/24 05:47 06/26/24 11:36 Labs: Abnormal Lab Results - Last 24 Hours (Table) 06/26/24 06/26/24 06/26/24 Range/Units 05:47 05:47 05:56 RBC 4.26 L (4.30-5.90) m/uL Hgb 11.9 L (13.0-17.5) gm/dL Hct 38.0 L (39.0-53.0) % RDW 16.8 H (11.5-15.5) % Lymphocytes # 0.8 L (1.0-4.8) k/uL ABG pH 7.48 H (7.35-7.45) ABG HCO3 31 H (21-25) mmol/L ABG Total CO2 32 H (19-24) mmol/L ABG O2 Saturation 98.4 H (94-97) % Potassium 3.4 L (3.5-5.1) mmol/L Creatinine 0.38 L (0.66-1.25) mg/dL POC Glucose (mg/dL) (70-110) mg/dL 06/26/24 Range/Units 06:08 RBC (4.30-5.90) m/uL Hgb (13.0-17.5) gm/dL Hct (39.0-53.0) % RDW (11.5-15.5) % Lymphocytes # (1.0-4.8) k/uL ABG pH (7.35-7.45) ABG HCO3 (21-25) mmol/L ABG Total CO2 (19-24) mmol/L ABG O2 Saturation (94-97) % Potassium (3.5-5.1) mmol/L Creatinine (0.66-1.25) mg/dL POC Glucose (mg/dL) 111 H (70-110) mg/dL Microbiology - Last 24 Hours (Table) 06/25/24 15:20 Gram Stain - Preliminary Sputum Assessment and Plan (1) Surgical site infection Current Visit: Yes Status: Acute Priority: High Code(s): T81.49XA - INFECTION FOLLOWING A PROCEDURE, OTHER SURGICAL SITE, INIT SNOMED Code(s): 13987330 (2) Infection due to ESBL-producing Escherichia coli Current Visit: Yes Status: Acute Priority: High Code(s): A49.8 - OTHER BACTERIAL INFECTIONS OF UNSPECIFIED SITE; Z16.12 - EXTENDED SPECTRUM BETA LACTAMASE (ESBL) RESISTANCE SNOMED Code(s): 388115283 Plan: 1patient presented to the hospital with back pain more than a week ago from initial evaluation in this patient who did have extensive lumbosacral spine surgery now has been taken back to the OR noticed to have hardware failure fracture of the vertebra s/p redo surgery and culture which has been finalized as ESBL E. coli 2-patient remains to be afebrile white count has been normal blood sputum culture has been negative 3patient is s/p for trach and PEG completed on 06/22/2024, 4-patient to continue with Invanz, with the patient having a low-grade fever and some pulmonary atelectasis questionably pulmonary source, currently waiting for the sputum culture and procalcitonin to be finalized Dictation was produced using [employer] dictation software. please excuse any grammatical, word or spelling errors. Time with Patient: Less than 30
--- NOTE | 2024-06-26 16:48 | P.PN ---
Subjective Progress Note Date: 06/26/24 Principal diagnosis: Respiratory failure Patient remains on the ventilator at this time. Tolerating tube feeds. No issues with the tracheostomy. Objective - Vital Signs Vital signs: Vital Signs Temp 98.3 F 06/26/24 08:00 Pulse 101 H 06/26/24 15:17 Resp 24 06/26/24 15:00 BP 133/93 06/26/24 15:00 Pulse Ox 99 06/26/24 15:00 FiO2 45 06/26/24 15:06 Intake & Output 06/25/24 06/26/24 06/26/24 18:59 06:59 18:59 Intake Total 681.963 570.38 476.946 Output Total 735 385 445 Balance -53.037 185.38 31.946 Weight 104.5 kg 105.2 kg 105.2 kg Intake: IV 290 220 160 Ertapenem 1 gm In Sodium 50 Chloride 0.9% 50 ml @ 100 mls/hr IVPB DAILY [facility] Rx #:[id number] Lactated Ringers 1,000 ml 240 220 160 @ 20 mls/hr IV .Q24H [facility] Rx#:[id number] Intake, IV Titration 171.963 150.38 176.946 Amount Dexmedetomidine/0.9% NaCl 9.906 (Pmx) 400 mcg In Empty Bag 1 bag @ 0.2 MCG/KG/HR 5.26 mls/hr IV .Q19H1M [facility] Rx#:[id number] propofoL 1,000 mg In 171.963 150.38 167.040 Empty Bag 1 bag @ 75 MCG/ KG/MIN 51.525 mls/hr IV . Q1H57M [facility] Rx#:[id number] Tube Feeding 130 110 80 Other 90 90 60 Output: Urine 735 385 445 Other: Voiding Method Indwelling Catheter Indwelling Catheter Indwelling Catheter # Bowel Movements 1 ABP, PAP, CO, CI - Last Documented Arterial Blood Pressure 106/58 - Exam Tracheostomy and PEG tube catheters clean and dry without drainage or signs of infection - Labs CBC & Chem 7: 06/26/24 05:47 06/26/24 11:36 Labs: Abnormal Lab Results - Last 24 Hours (Table) 06/26/24 06/26/24 06/26/24 Range/Units 05:47 05:47 05:56 RBC 4.26 L (4.30-5.90) m/uL Hgb 11.9 L (13.0-17.5) gm/dL Hct 38.0 L (39.0-53.0) % RDW 16.8 H (11.5-15.5) % Lymphocytes # 0.8 L (1.0-4.8) k/uL ABG pH 7.48 H (7.35-7.45) ABG HCO3 31 H (21-25) mmol/L ABG Total CO2 32 H (19-24) mmol/L ABG O2 Saturation 98.4 H (94-97) % Potassium 3.4 L (3.5-5.1) mmol/L Creatinine 0.38 L (0.66-1.25) mg/dL POC Glucose (mg/dL) (70-110) mg/dL 06/26/24 Range/Units 06:08 RBC (4.30-5.90) m/uL Hgb (13.0-17.5) gm/dL Hct (39.0-53.0) % RDW (11.5-15.5) % Lymphocytes # (1.0-4.8) k/uL ABG pH (7.35-7.45) ABG HCO3 (21-25) mmol/L ABG Total CO2 (19-24) mmol/L ABG O2 Saturation (94-97) % Potassium (3.5-5.1) mmol/L Creatinine (0.66-1.25) mg/dL POC Glucose (mg/dL) 111 H (70-110) mg/dL Microbiology - Last 24 Hours (Table) 06/25/24 15:20 Gram Stain - Preliminary Sputum Assessment and Plan (1) Hypercapnic respiratory failure Narrative/Plan: Patient doing well today on the ventilator. Continue tube feeds at goal. Bolster loosened slightly. Will sign off. Please reconsult if needed. Current Visit: Yes Status: Acute Priority: High Code(s): J96.92 - RESPIRATORY FAILURE, UNSPECIFIED WITH HYPERCAPNIA SNOMED Code(s): 149668272
[2024-06-26 18:43] LABS: Glucose,Whole Blood 120 mg/dL (70-110)
--- NOTE | 2024-06-26 21:10 | P.PN ---
Subjective Progress Note Date: 06/26/24 HPI 58-year-old male with multiple comorbidities known to Dr. Menard. Cardiology was consulted for perioperative clearance initially after patient suffered a mechanical fall and suffered a lumbar spine fracture. Patient thereafter underwent a L1 L2 fracture and diversion of T10 through pelvic decompression and fusion with stabilization. Patient was thereafter transferred to ICU and was maintained on ventilator support. Patient had difficulty getting weaned off ventilator support. There was a concern of possible stroke postoperatively. Patient's initial echocardiogram showed severe cardiomyopathy with EF of 25 to 30%. Repeat echocardiogram after stroke showed an EF of 45% with no evidence of LV thrombus. Patient also maintained to have persistent atrial fibrillation. June 23, 2024 Cardiology was reconsulted today because patient was having labile blood pressure and heart rates. Patient is post trach and PEG, and postoperatively patient had lower blood pressure and more agitation. For this his propofol was increased. After increasing propofol patient's blood pressure dropped for which she was placed on norepinephrine. Since being placed on norepinephrine he is having a labile heart rate of around 110 bpm. June 24, 2024 BP 120 over 69 mmHg, heart rate 120 bpm, continues to be in atrial fibrillation with RVR. Still continues to be on ventilator support, Jun 25, 2024 Patient is seen and examined at bedside this a.m. Patient is maintained on ventilator support with tracheostomy and peg tube in place. Blood pressure is controlled, heart rate is better controlled today. Continues to be in atrial fibrillation rate controlled. Plan for possible spontaneous breathing trial tomorrow June 26, 2024 Patient seen and examined at bedside this a.m. Continues to be on vent support with tracheostomy. PEG tube in place, blood pressure is controlled, not requiring pressors, atrial fibrillation is rate controlled, PHYSICAL EXAMINATION Cardiac exam irregular pulse, S1-S2 is audible, no significant murmurs appreciated Lung exam: On vent support, mild crackles audible in bilateral lung simental, no significant rhonchi or wheezing Neurological exam: No detailed exam was performed as patient is on propofol IMPRESSION: Atrial fibrillation with RVR Labile blood pressure, currently on norepinephrine, multifactorial from low EF, propofol use, postop state S/p trach and PEG S/p mechanical fall, s/p lumbar surgery Recent revision of L2 to pelvis posterior lateral decompression and fusion with bilateral open SI joint fusions on 05/19/2024 Hardware failure of L2-L3, status post L1-L2 revision and T10 through pelvis decompression and fusion Hyperlipidemia Diabetes Cardiomyopathy, unspecified type, EF 25 to 30% PLAN: Continue metoprolol 50 mg twice daily. Continue anticoagulation with Xarelto Once patient is more stable, consider adding guideline directed medical therapy for cardiomyopathy at this time patient's blood pressure and heart rate are not allowing us to uptitrate it. Use norepinephrine to minimum. See if we can cut down on propofol, and that we will be able to wean him down off norepinephrine. As norepinephrine will be reduced his heart rate will be better controlled. Maintain potassium at 4, magnesium at 2, make sure patient is not getting acido tic Continue supportive ICU care Continue anticoagulation with Xarelto At this time cardiology team will sign off. Please reconsult us in case of any questions. Jose Eduardo Martino MD, FACC, RPVI Thank you for allowing [facility] to participate in this patient's care. Please contact us in case of any followup questions. Objective - Vital Signs Vital signs: Vital Signs Temp 98.8 F 06/26/24 20:00 Pulse 83 06/26/24 21:00 Resp 21 06/26/24 21:00 BP 123/86 06/26/24 21:00 Pulse Ox 98 06/26/24 21:00 FiO2 45 06/26/24 20:00 Intake & Output 06/26/24 06/26/24 06/27/24 06:59 18:59 06:59 Intake Total 570.38 618.206 130 Output Total 385 2045 200 Balance 185.38 -1426.794 -70 Weight 105.2 kg 105.2 kg Intake: IV 220 240 60 Lactated Ringers 1,000 ml 220 240 60 @ 20 mls/hr IV .Q24H [facility] Rx#:[id number] Intake, IV Titration 150.38 178.206 Amount Dexmedetomidine/0.9% NaCl 9.906 (Pmx) 400 mcg In Empty Bag 1 bag @ 0.2 MCG/KG/HR 5.26 mls/hr IV .Q19H1M [facility] Rx#:[id number] propofoL 1,000 mg In 150.38 168.300 Empty Bag 1 bag @ 75 MCG/ KG/MIN 51.525 mls/hr IV . Q1H57M [facility] Rx#:[id number] Tube Feeding 110 140 40 Other 90 60 30 Output: Urine 385 2045 200 Other: Voiding Method Indwelling Catheter Indwelling Catheter # Bowel Movements 1 ABP, PAP, CO, CI - Last Documented Arterial Blood Pressure 106/58 - Labs CBC & Chem 7: 06/26/24 05:47 06/26/24 11:36 Labs: Abnormal Lab Results - Last 24 Hours (Table) 06/26/24 06/26/24 06/26/24 Range/Units 05:47 05:47 05:56 RBC 4.26 L (4.30-5.90) m/uL Hgb 11.9 L (13.0-17.5) gm/dL Hct 38.0 L (39.0-53.0) % RDW 16.8 H (11.5-15.5) % Lymphocytes # 0.8 L (1.0-4.8) k/uL ABG pH 7.48 H (7.35-7.45) ABG HCO3 31 H (21-25) mmol/L ABG Total CO2 32 H (19-24) mmol/L ABG O2 Saturation 98.4 H (94-97) % Potassium 3.4 L (3.5-5.1) mmol/L Creatinine 0.38 L (0.66-1.25) mg/dL POC Glucose (mg/dL) (70-110) mg/dL 06/26/24 06/26/24 Range/Units 06:08 18:42 RBC (4.30-5.90) m/uL Hgb (13.0-17.5) gm/dL Hct (39.0-53.0) % RDW (11.5-15.5) % Lymphocytes # (1.0-4.8) k/uL ABG pH (7.35-7.45) ABG HCO3 (21-25) mmol/L ABG Total CO2 (19-24) mmol/L ABG O2 Saturation (94-97) % Potassium (3.5-5.1) mmol/L Creatinine (0.66-1.25) mg/dL POC Glucose (mg/dL) 111 H 120 H (70-110) mg/dL Microbiology - Last 24 Hours (Table) 06/25/24 15:20 Gram Stain - Preliminary Sputum
[2024-06-26 23:40] LABS: Glucose,Whole Blood 125 mg/dL (70-110)
--- NOTE | 2024-06-27 00:12 | PN ---
PROGRESS NOTE SUBJECTIVE: This is a 58-year-old white male who did not tolerate weaning off the vent yesterday. Chest x-ray shows improvement. Labs improvement. Invanz was continued per [facility]. OBJECTIVE: VITAL SIGNS: Temperature 98.3, pulse 94, respiratory rate 21, blood pressure 102/81, O2 99, and FiO2 45. CARDIOVASCULAR: Irregular rhythm. RESPIRATORY: Diminished breath sounds. ABDOMEN: Soft. MUSCULOSKELETAL: Normal. NEUROLOGIC: Cranial nerves intact. PSYCH: Poor mood and affect. HEENT: Normocephalic, atraumatic. LABORATORY DATA: Hemoglobin is 11.9, white count 7.5, sodium 139, potassium 3.4, BUN 17, creatinine is 0.38. Acute hypoxemic respiratory failure multifactorial secondary to underlying COPD CHF, reduced ejection fraction, respiratory fall with L2 compression fracture postoperative day 16, revision of T10 to pelvis decompression and fusion. Acute frontoparietal ischemic CVA. ESBL E coli wound infection, on Invanz, status post lateral decompression fusion on 05/19/2024, CHF, systolic, chronic atrial fibrillation, acute CVA during the second surgery. Supportive care, nutritional support with PEG, trach care. Continue treatment for ESBL. Continue to wake him and get him into rehab or [facility]. PROGNOSIS: Guarded. MMODL / IJN: [id number] /
[2024-06-27 05:44] LABS: ABG Base Excess 8.1 mmol/L; ABG HCO3 32 mmol/L (21-25); ABG Oxygen Saturation 99.7 % (94-97); ABG PCO2 39 mmHg (35-45); ABG PH 7.52 (7.35-7.45); ABG PO2 131 mmHg (83-108); ABG TCO2 33 mmol/L (19-24); Allen Test Performed? Yes
[2024-06-27 06:01] LABS: Glucose,Whole Blood 168 mg/dL (70-110)
[2024-06-27 06:43] LABS: Anisocytosis Slight; Basophils # (A) 0.1 k/uL (0-0.2); Basophils % (A) 1 %; Eosinophils # (A) 0.2 k/uL (0-0.7); Eosinophils % (A) 3 %; HCT 43.6 % (39.0-53.0); HGB 13.2 gm/dL (13.0-17.5); Hypochromasia Marked; Lymphocytes # (A) 0.8 k/uL (1.0-4.8); Lymphocytes % (A) 9 %; MCH 27.3 pg (25.0-35.0); MCHC 30.3 g/dL (31.0-37.0); MCV 89.9 fL (80.0-100.0); Mean Platelet Volume 8.2; Monocytes # (A) 0.8 k/uL (0-1.0); Monocytes % (A) 9 %; Neutrophils % (A) 77 %; Platelet Count 360 k/uL (150-450); RBC 4.85 m/uL (4.30-5.90); RDW 16.9 % (11.5-15.5); WBC 9.1 k/uL (3.8-10.6)
[2024-06-27 06:56] LABS: Sodium 138 mmol/L (137-145)
[2024-06-27 06:57] LABS: ALT 35 U/L (4-49); AST 36 U/L (17-59); African American GFR (CKD) >90 (>60 ml/min/1.73 sqM); Albumin 3.3 g/dL (3.5-5.0); Alkaline Phosphatase 158 U/L (38-126); Anion Gap 14 mmol/L; Blood Urea Nitrogen 19 mg/dL (9-20); Calcium 8.9 mg/dL (8.4-10.2); Carbon Dioxide 29 mmol/L (22-30); Chloride 95 mmol/L (98-107); Glucose 140 mg/dL (74-99); Non-African American GFR(CKD) >90 (>60 ml/min/1.73 sqM); Total Bilirubin 1.6 mg/dL (0.2-1.3); Total Protein 5.9 g/dL (6.3-8.2)
[2024-06-27 07:16] LABS: Potassium 3.4 mmol/L (3.5-5.1)
--- NOTE | 2024-06-27 10:15 | P.PN ---
Subjective Progress Note Date: 06/27/24 Principal diagnosis: L2 vertebral body compression fracture, postoperative day #17, acute CVA Patient is a 58-year-old white male with past medical history significant for obstructive sleep apnea with home CPAP, COPD, ex tobacco smoker, marijuana smoker, atrial fibrillation with previous cardioversion and anticoagulated on Xarelto, diabetes mellitus, hypertension, heart failure, and previous spinal surgeries. His primary care provider is Dr. Deuce Brito. He is currently intubated to the mechanical ventilator, unable to provide any information for HPI. Of note, patient recently underwent an L2 to pelvis posterior lateral decompression and fusion on 05/19/2024 at [facility]. During this admission, he initially was recovered in the intensive care unit. Technically, difficult to extubate, and did require BiPAP support immediately after extubation. He was eventually discharged home on 05/26/2024. Patient returned the emergency department on 06/06/2024. On review of the ER documentation, he had a fall while at home. CT of the lumbar spine demonstrated new compression fracture of L2 vertebral body with compression of the vertebral body down to the pedicle screws bilaterally and loosening the left pedicle screw. New left pedicle/transverse process of L2 and L3 fractures around the hardware with mild displacement. Fractures of the right transverse process of L2 and L3. Likely postsurgical subcutaneous gas in the surgical bed. Patient underwent revision thoracic T10 to pelvis decompression fusion yesterday. Intraoperatively, patient had an EBL of 1 L. He has received a total of 5 units of PRBCs, 1 FFP, and 1 pack platelets. He was sent to the intensive care unit postoperatively. He remains on the mechanical ventilator. Chest x-ray shows the endotracheal tube approximately 4.3 cm above the shashank. There is cardiomegaly with pulmo nary vascular congestion suggested. No pleural effusions, pneumothoraces, focal consolidations. Initial ABG had a PaO2 of 80, pCO2 of 61, pH of 7.27. This was done on original ventilator settings of assist-control, respiratory rate 14, tidal volume 500, FiO2 1 9%, and PEEP of 5. My supervising physician is already increased the patient's respiratory rate to 20. He is currently synchronous wit h mechanical ventilator. There is a moderate amount of clear to white endotracheal secretions. Peak pressures 23. He is sedated with propofol which is currently infusing at 50 mcg/kg/min. He is fairly unarousable. Will withdraw to painful stimuli in all 4 extremities. There is also norepinephrine infusing at 0.02 mcg/kg/min. There is a MAP goal of 80 mmHg to support [employer] perfusion. LR is infusing at 10 MLS per hour. There is a Hemovac with a total of 220 serosanguineous output since surgery. We are awaiting postoperative labs. Preoperatively, CBC: WBC count 9.4, hemoglobin 9.6, hematocrit 32.5, platelets 516. Preoperative CMP: Sodium 137, potassium 4.1, chloride 104, serum bicarb 27, BUN 18, creatinine 0.61, glucose 143. LFTs unremarkable. Receiving prophylactic cefazolin. Note that preoperatively, patient did have a cardiac evaluation. Repeat echocardiogram shows a severely reduced left ventricular ejection fraction of 25 to 30% as well as mild mitral and tricuspid regurgi tation. Heart rhythm is atrial fibrillation with controlled ventricular response. Normally anticoagulated on Xarelto, however, this is on hold for surgery. Progress note dated June 20, 2024. 58-year-old male seen in room 255. The patient remains critically ill on the mechanical ventilator. Ventilator settings include volume assist-control, rate 20, tidal volume 500, FiO2 40%, PEEP of 5. Blood gases are currently pending. Patient continues on heparin via weight-based protocol, and tube feedings. In addition, the patient remains on propofol at 20 mcg/kg/min. Current laboratory data from June 20 are pending. Patient is able to tolerate. Pressure support and CPAP. Because of his poor mental status from a CVA, and airway secretions, it has been decided not to extubate the patient. Rather, the patient will have a tracheostomy and PEG tube placed on Saturday. Labs, x-rays, and all medications are reviewed. The patient also continues on ertapenem, for his ESBL Escherichia coli. Current medications include vitamin C, Lipitor, Dulcolax, Pulmicort, Wellbutrin, chlorhexidine, vitamin D3, Flexeril, Farxiga, ertapenem, ferrous sulfate, formoterol, Lasix, Neurontin, heparin, Dilaudid, insulin, DuoNeb, magnesium, metoprolol, Singulair, Narcan, Zofran, Protonix, Paxil, potassium pr otocol, and Senokot. Progress note dated June 21, 2024. 58-year-old male again seen in room 255. In my opinion, the patient is not yet ready to be extubated, despite the fact that he is has some reasonable success with weaning trials. His overall mental status is poor, and he still has issues with secretions. He apparently is scheduled for tracheostomy and PEG tube in the morning. His ventilator settings include volume assist-control, rate 20, tidal volume 500, FiO2 40%, PEEP of 5. Blood gases this morning show pO2 of 94, pCO2 44, pH is 7.47. His CPAP trial was pressure support of 7, CPAP of 5, and 40%. The patient is on saline at KVO, IV heparin, and propofol, at 30 mcg/kg/min. He is getting vital high-protein at 40, which is goal. Current labs include a white count 7.3, hemoglobin 9.5, hematocrit 37.6, and platelet count of 689,000. Sodium 139, potassium 3.9, chlorides 105, CO2 28, BUN 17, creatinine 0.40. Glucose is 110. Calcium is 8.5. Wound cultures were positive for ESBL Escherichia coli. Chest x-ray shows some patchy infiltrates. Patient was seen today on 06/22/2024, remains in the ICU, intubated and mechanically ventilated. Patient is on assist-control rate of 20 tidal volume 500 FiO2 40% and PEEP of 5 ABG showed a pO2 of 69 pCO2 40 0 pH of 7.50. Patient remains on propofol at 40 mcg/kg/min, remains on ertapenem, patient had a PICC line placed today, and he is supposed to have tracheostomy today as already arranged for by Dr. Lopez. Apparently the patient has been failure to wean, this failure was felt to be secondary to significant amount of secretions that the patient had, and also related to mental status/CVA. Again the patient is scheduled to have a PEG tube and tracheostomy today. I am not planning any weaning trials on the patient today. Reviewed all his labs and a chest x- ray.WBC count is 7.7 hemoglobin is 11.8. Basic metabolic profile is relatively normal renal profile is normal chest x-ray showed mild pulmonary vascular conge stion, it also showed some patchy atelectasis or consolidation of the right lung base patient include Lipitor, Dulcolax, Pulmicort, Wellbutrin, Peridex, vitamin D3, Flexeril, farXCIGA, Triptafen-M, iron, Perforomist, Lasix 40 mg p.o. daily, gabapentin, heparin, nebulized Atrovent, NovoLog insulin, Dilaudid, LR, Lopressor, Singulair, Protonix, Paxil, propofol and Senokot. Patient was evaluated today on 06/23/24, patient is now status post tracheostomy, PEG tube placement, PICC line placement, remains on the vent, seems to be now synchronous with the ventilator, and I had to increase his propofol. His gases are marginal with a pO2 of 73 pCO2 41 pH of 7.47 his O2 saturation is marginal and he is on assist-control rate of 20 tidal volume 500 FiO2 60% PEEP of 5 which I increased to 8. Patient is on propofol at 50 mcg/kg/min, increased to 75 mcg/kg/min. Remains on Invanz remains on enteral feeding, and this will be restarted today via PEG tube. Considering the gases considering the chest x-ray and considering the overall clinical appearance of the patient, I do not believe he is ready to be weaned, actually the patient needs more sedation to make sure that he is synchronous with the ventilator. WBC count is 10.2 hemoglobin 11.7 electrolytes are normal, renal profile is normal. Chest x-ray showed tracheostomy in proper position, slight opacities persist. Mostly atelectasis, possible pneumonia Patient was evaluated today on 06/24/2024, patient remained ICU, intubated, mechanically ventilated, tracheostomy is intact. Patient is on assist-control rate of 20 tidal volume 500 FiO2 50% PEEP 8 ABG showed a pO2 of 101 pCO2 49 pH of 7.40 hence FiO2 was cut down to 45% and PEEP Down to 5 remains on propofol at 55 mcg/kg/min, off norepinephrine, patient remains in atrial fibrillation, rate is fairly well-controlled. Patient also remains on Invanz, and that is being addressed by infectious disease. WBC count is 10.3 hemoglobin 12.5. Platelets are 483. Metabolic profile and renal profile are normal Patient was evaluated today on , remains intubated, mechanically trish tilated, on assist-control rate of 20 tidal volume 500 FiO2 45% PEEP of 5 ABG showed a pO2 of 89 pCO2 42 pH of 7.47. Remains on propofol at 30 mcg/kg/min remains on LR at 20 cc/h, 6 and receiving vital HP for enteral feeding/nutritional support. Today will give the patient a trial of weaning with IMV of 10 and pressure support of 10, and if tolerated will eventually transition to pressure support and CPAP. If not tolerated the patient will go back on assist-control mode of mechanical ventilation. His mental status is marginal, patient is not following any instructions, nonetheless he is on propofol which I plan to discontinue and give the patient a sedation interruption/holiday. Chest x-ray is showing improvement labs are normal CBC is relatively normal renal profile is normal patient does have history of cardiomyopathy and LV dysfunction with ejection fraction of 25% but he is not in heart failure at present looking at his chest x-ray. Patient was evaluated today on 06/26/2024, remains in the ICU, intubated and mechanically ventilated. He is on assist-control rate of 20 tidal volume 500 FiO2 45% and PEEP of 5 patient seems to be comfortable, not in distress, however mental status is extremely poor, patient does not follow any instructions. Eyes are open but patient does not follow any instructions as far as squeezing hands or wiggling toes or closing and opening eyes. Obviously he has a significant encephalopathy. ABG showed a pO2 of 98 pCO2 42 point of 7.48, hence no changes were made in the vent settings. Yesterday the patient did not tolerate much of weaning trial today I plan to change propofol to Precedex, and keep him on Precedex as well as assist-control mode of mechanical ventilation. His chest x- ray is showing improvement his labs are basically unremarkable. Remains on Invanz. Patient is going to be difficult to wean mostly because of his underly ing neurological status/encephalopathy. Have to consider select care specialty for this patient in the long run. Patient was seen today on 06/27/2024, remains in the ICU intubated and mechanically ventilated. Patient is on assist-control rate of 20 tidal volume 500 FiO2 45% PEEP of 5 ABG showed a pO2 of 131 pCO2 39 pH of 7.52. Patient is now off propofol, not receiving any narcotics or sedatives except he is on Precedex at 0.3 mcg/kg/h. Has been off propofol since yesterday. Patient is awake, he seems to be very comfortable on the ventilator but still on assist- control mode of mechanical ventilation. Still receiving Invanz and today I plan to give the patient another trial of pressure support of 12 and CPAP. Chest x- ray is relatively unremarkable. Minimal left basilar atelectasis noted. WBC count is 9.1 hemoglobin 13.2 electrolytes are normal except for potassium of 3.4, Renal profile is normal Objective - Vital Signs Vital signs: Vital Signs Temp 99.6 F 06/27/24 04:00 Pulse 101 H 06/27/24 07:00 Resp 18 06/27/24 07:00 BP 101/80 06/27/24 07:00 Pulse Ox 99 06/27/24 06:00 FiO2 45 06/27/24 08:41 Intake & Output 06/26/24 06/27/24 06/27/24 18:59 06:59 18:59 Intake Total 618.206 721.977 55 Output Total 2045 545 30 Balance -1426.794 176.977 25 Weight 105.2 kg 100.7 kg Intake: IV 240 240 20 Lactated Ringers 1,000 ml 240 240 20 @ 20 mls/hr IV .Q24H [facility] Rx#:[id number] Intake, IV Titration 178.206 66.977 Amount Dexmedetomidine/0.9% NaCl 9.906 66.977 (Pmx) 400 mcg In Empty Bag 1 bag @ 0.2 MCG/KG/HR 5.26 mls/hr IV .Q19H1M [facility] Rx#:[id number] propofoL 1,000 mg In 168.300 Empty Bag 1 bag @ 75 MCG/ KG/MIN 51.525 mls/hr IV . Q1H57M [facility] Rx#:[id number] Tube Feeding 140 325 35 Other 60 90 Output: Urine 2045 545 30 Other: Voiding Method Indwelling Catheter Indwelling Catheter # Bowel Movements 1 ABP, PAP, CO, CI - Last Documented Arterial Blood Pressure 106/58 - Exam General: 58-year-old white male intubated mechanically ventilated. Head: Atraumatic, normocephalic HEENT: PERRLA, EOMI, nonicteric, no neck masses, no JVD, gastric tube is intact. Tracheostomy is intact. Skin: Skin is warm and dry and no rashes or lesions are noted. Cardiovascular: Irregular rhythm, no S3 gallop, 2/6 systolic murmur throughout the precordium Respiratory: Diminished breath sounds at the bases, no crackles, no rhonchi no wheezes Gastrointestinal: Soft nontender no megaly no rebound no guarding new PEG tube is noted. Seems to be intact Musculoskeletal: No deformities, could not assess strength Neurological: Patient opens eyes, again does not follow any instructions, does not seem to comprehend instructions. Overall remains encephalopathic Psychiatric: Could not fully assess, patient is encephalopathic - Labs CBC & Chem 7: 06/27/24 05:32 06/27/24 05:32 Labs: Abnormal Lab Results - Last 24 Hours (Table) 06/26/24 06/26/24 06/27/24 Range/Units 18:42 23:39 05:32 MCHC 30.3 L (31.0-37.0) g/dL RDW 16.9 H (11.5-15.5) % Lymphocytes # 0.8 L (1.0-4.8) k/uL ABG pH (7.35-7.45) ABG pO2 (83-108) mmHg ABG HCO3 (21-25) mmol/L ABG Total CO2 (19-24) mmol/L ABG O2 Saturation (94-97) % Potassium (3.5-5.1) mmol/L Chloride (98-107) mmol/L Creatinine (0.66-1.25) mg/dL Glucose (74-99) mg/dL POC Glucose (mg/dL) 120 H 125 H (70-110) mg/dL Total Bilirubin (0.2-1.3) mg/dL Alkaline Phosphatase (38-126) U/L Total Protein (6.3-8.2) g/dL Albumin (3.5-5.0) g/dL 06/27/24 06/27/24 06/27/24 Range/Units 05:32 05:40 06:00 MCHC (31.0-37.0) g/dL RDW (11.5-15.5) % Lymphocytes # (1.0-4.8) k/uL ABG pH 7.52 H (7.35-7.45) ABG pO2 131 H (83-108) mmHg ABG HCO3 32 H (21-25) mmol/L ABG Total CO2 33 H (19-24) mmol/L ABG O2 Saturation 99.7 H (94-97) % Potassium 3.4 L (3.5-5.1) mmol/L Chloride 95 L (98-107) mmol/L Creatinine 0.40 L (0.66-1.25) mg/dL Glucose 140 H (74-99) mg/dL POC Glucose (mg/dL) 168 H (70-110) mg/dL Total Bilirubin 1.6 H (0.2-1.3) mg/dL Alkaline Phosphatase 158 H (38-126) U/L Total Protein 5.9 L (6.3-8.2) g/dL Albumin 3.3 L (3.5-5.0) g/dL Microbiology - Last 24 Hours (Table) 06/26/24 01:12 Gram Stain - Preliminary Sputum 06/25/24 15:20 Gram Stain - Preliminary Sputum Assessment and Plan Assessment: Impression: Acute hypoxic respiratory failure, multifactorial secondary to underlying COPD, congestive heart failure with reduced ejection fraction, resolved Status post fall with L2 vertebral compression fracture Postoperative day # 17 6 following revision of T10 to pelvis decompression and fusion with stabilization Acute left frontal parietal ischemic CVA, while inpatient ESBL E. coli wound infection, remains on Invanz L2 to pelvis posterior lateral decompression and fusion on 05/19/2024 Chronic atrial fibrillation Benign essential hypertension Dyslipidemia Type 2 diabetes Obesity with BMI of 38.4 Obstructive sleep apnea syndrome Ex-smoker Remote history of prior C2-T2 decompression and fusion Failure to wean status post tracheostomy on 06/22/2024 patient seems to have profound encephalopathy related to his recent CVA I believe the failure to wean seems to be mostly related to his neurological status continue to follow instructions nonetheless I plan to give the patient today another weaning trial with pressure support of 12 and CPAP if tolerated may eventually try the patient on trach collar however his pressure support will be decreased to slowly Recommendation: Keep patient on mechanical ventilation/assist-control mode Continue to avoid sedation and narcotics but continue Precedex for now May give the patient a trial of pressure support of 12 and CPAP today Continue present supportive care measures Continue nutritional support via PEG Continue tracheostomy care Continue GI and DVT prophylaxis Continue Invanz until discontinued by infectious disease patient had ESBL/E. col i, surgical wound infection Patient remains critically ill select care specialty evaluation next week Critical care time is over 30 Time with Patient: Greater than 30
[2024-06-27] MEDS: POTASSIUM BICARBONATE/CIT AC 20 MEQ TABLET.EFF NG-TUBE SCH ×3 (10:23→21:53)
--- NOTE | 2024-06-27 10:59 | XR ---
EXAM: XR chest 1V portable CLINICAL INDICATION:Male, 58 years old with history of respiratory status; [facility] COMPARISON: 06/26/2024 TECHNIQUE: Chest single view. FINDINGS: Lines/tubes/devices: Stable tracheostomy tube, remains in good position. Stable left arm PICC, with t ip over the mid SVC. Anterior-posterior cervical fusion hardware, bilateral multilevel fixation screws and rods in the mid to inferior thoracic spine extending into the lumbar region. Cardiomediastinum: Cardiac silhouette appears stable, mildly enlarged. Stable mediastinal silhouette. Vasculature: No increased pulmonary vasculature. Lungs/pleura: Lungs overall appear better aerated. Chronic senescent changes in the lungs redemonstrated without ev idence of acute infiltrate, sizable effusion, or pneumothorax. The left costophrenic angle is however partially excluded from the [id number]. Bones/soft tissues: Bony thorax appears grossly unchanged as seen. Regional soft tissues appear unremarkable. IMPRESSION: Interval improved aeration of the lungs, without evidence for acute chest process.
[2024-06-27 11:36] LABS: Glucose,Whole Blood 125 mg/dL (70-110)
--- NOTE | 2024-06-27 16:39 | P.PN ---
Subjective Progress Note Date: 06/27/24 Principal diagnosis: Reason for follow-up is lumbar surgical site infection ESBL E. coli Patient is a 58-year-old male with a past medical history significant for diabetes mellitus hypertension COPD atrial fibrillation sleep apnea initially presented to hospital with back pain has been diagnosed with L1-L3 fracture status post extensive surgery and surgical cultures came back positive with ESBL E. coli prompted this consultation.Patient is status post tracheostomy and PEG tube completed on 06/22/2024. On today's evaluation that is 06/27/2024,the patient remains to be afebrile, patient is on ventilator through trach FiO2 is currently stable at 45% patient is awake with open eyes but did not follow commands appropriately per the nursing staff tolerating his tube feeds and no diarrhea has been reported. Patient white count is 9.1, creatinine 0.40 sputum is growing Rosangela Objective - Vital Signs Vital signs: Vital Signs Temp 98.8 F 06/27/24 16:00 Pulse 94 06/27/24 16:00 Resp 21 06/27/24 16:00 BP 114/88 06/27/24 16:00 Pulse Ox 94 L 06/27/24 16:00 FiO2 45 06/27/24 16:00 Intake & Output 06/26/24 06/27/24 06/27/24 18:59 06:59 18:59 Intake Total 618.206 721.977 829.94 Output Total 2045 545 600 Balance -1426.794 176.977 229.94 Weight 105.2 kg 100.7 kg Intake: IV 240 240 230 Ertapenem 1 gm In Sodium 50 Chloride 0.9% 50 ml @ 100 mls/hr IVPB DAILY [facility] Rx #:[id number] Lactated Ringers 1,000 ml 240 240 180 @ 20 mls/hr IV .Q24H [facility] Rx#:[id number] Intake, IV Titration 178.206 66.977 99.94 Amount Dexmedetomidine/0.9% NaCl 9.906 66.977 99.94 (Pmx) 400 mcg In Empty Bag 1 bag @ 0.2 MCG/KG/HR 5.26 mls/hr IV .Q19H1M [facility] Rx#:[id number] propofoL 1,000 mg In 168.300 Empty Bag 1 bag @ 75 MCG/ KG/MIN 51.525 mls/hr IV . Q1H57M [facility] Rx#:[id number] Tube Feeding 140 325 440 Other 60 90 60 Output: Urine 2045 545 600 Other: Voiding Method Indwelling Catheter Indwelling Catheter Indwelling Catheter # Bowel Movements 1 1 ABP, PAP, CO, CI - Last Documented Arterial Blood Pressure 106/58 - Exam GENERAL DESCRIPTION: Middle-age male intubated on the vent RESPIRATORY SYSTEM: Unlabored breathing , decreased breath sounds at bases HEART: S1 S2 regular rate and rhythm , ABDOMEN: Soft , no tenderness EXTREMITIES: No edema feet - Labs CBC & Chem 7: 06/27/24 05:32 06/27/24 14:41 Labs: Abnormal Lab Results - Last 24 Hours (Table) 06/26/24 06/26/24 06/27/24 Range/Units 18:42 23:39 05:32 MCHC 30.3 L (31.0-37.0) g/dL RDW 16.9 H (11.5-15.5) % Lymphocytes # 0.8 L (1.0-4.8) k/uL ABG pH (7.35-7.45) ABG pO2 (83-108) mmHg ABG HCO3 (21-25) mmol/L ABG Total CO2 (19-24) mmol/L ABG O2 Saturation (94-97) % Potassium (3.5-5.1) mmol/L Chloride (98-107) mmol/L Creatinine (0.66-1.25) mg/dL Glucose (74-99) mg/dL POC Glucose (mg/dL) 120 H 125 H (70-110) mg/dL Total Bilirubin (0.2-1.3) mg/dL Alkaline Phosphatase (38-126) U/L Total Protein (6.3-8.2) g/dL Albumin (3.5-5.0) g/dL 06/27/24 06/27/24 06/27/24 Range/Units 05:32 05:40 06:00 MCHC (31.0-37.0) g/dL RDW (11.5-15.5) % Lymphocytes # (1.0-4.8) k/uL ABG pH 7.52 H (7.35-7.45) ABG pO2 131 H (83-108) mmHg ABG HCO3 32 H (21-25) mmol/L ABG Total CO2 33 H (19-24) mmol/L ABG O2 Saturation 99.7 H (94-97) % Potassium 3.4 L (3.5-5.1) mmol/L Chloride 95 L (98-107) mmol/L Creatinine 0.40 L (0.66-1.25) mg/dL Glucose 140 H (74-99) mg/dL POC Glucose (mg/dL) 168 H (70-110) mg/dL Total Bilirubin 1.6 H (0.2-1.3) mg/dL Alkaline Phosphatase 158 H (38-126) U/L Total Protein 5.9 L (6.3-8.2) g/dL Albumin 3.3 L (3.5-5.0) g/dL 06/27/24 Range/Units 11:35 MCHC (31.0-37.0) g/dL RDW (11.5-15.5) % Lymphocytes # (1.0-4.8) k/uL ABG pH (7.35-7.45) ABG pO2 (83-108) mmHg ABG HCO3 (21-25) mmol/L ABG Total CO2 (19-24) mmol/L ABG O2 Saturation (94-97) % Potassium (3.5-5.1) mmol/L Chloride (98-107) mmol/L Creatinine (0.66-1.25) mg/dL Glucose (74-99) mg/dL POC Glucose (mg/dL) 125 H (70-110) mg/dL Total Bilirubin (0.2-1.3) mg/dL Alkaline Phosphatase (38-126) U/L Total Protein (6.3-8.2) g/dL Albumin (3.5-5.0) g/dL Microbiology - Last 24 Hours (Table) 06/25/24 15:20 Gram Stain - Preliminary Sputum Sputum Culture - Preliminary Rosangela albicans 06/26/24 01:12 Gram Stain - Preliminary Sputum Sputum Culture - Preliminary Rosangela albicans Assessment and Plan (1) Surgical site infection Current Visit: Yes Status: Acute Priority: High Code(s): T81.49XA - INFECTION FOLLOWING A PROCEDURE, OTHER SURGICAL SITE, INIT SNOMED Code(s): 75394517 (2) Infection due to ESBL-producing Escherichia coli Current Visit: Yes Status: Acute Priority: High Code(s): A49.8 - OTHER BACTERIAL INFECTIONS OF UNSPECIFIED SITE; Z16.12 - EXTENDED SPECTRUM BETA LACTAMASE (ESBL) RESISTANCE SNOMED Code(s): 130948267 Plan: 1patient presented to the hospital with back pain more than a week ago from initial evaluation in this patient who did have extensive lumbosacral spine surgery now has been taken back to the OR noticed to have hardware failure fracture of the vertebra s/p redo surgery and culture which has been finalized as ESBL E. coli 2-patient remains to be afebrile white count has been normal blood sputum culture has been negative 3patient is s/p for trach and PEG completed on 06/22/2024, 4-patient to continue with Invanz, with the patient having a low-grade fever and some pulmonary atelectasis questionably pulmonary source, sputum is growing Rosangela more likely colonizer and will monitor closely Dictation was produced using [employer] dictation software. please excuse any grammatical, word or spelling errors. Time with Patient: Less than 30
[2024-06-27 18:00] LABS: Glucose,Whole Blood 140 mg/dL (70-110)
[2024-06-27 23:46] LABS: Glucose,Whole Blood 153 mg/dL (70-110)
[2024-06-28 05:20] LABS: Glucose,Whole Blood 163 mg/dL (70-110)
[2024-06-28 05:38] LABS: ABG Base Excess 8.2 mmol/L; ABG HCO3 32 mmol/L (21-25); ABG Oxygen Saturation 99.1 % (94-97); ABG PCO2 42 mmHg (35-45); ABG PH 7.49 (7.35-7.45); ABG PO2 110 mmHg (83-108); ABG TCO2 34 mmol/L (19-24); Allen Test Performed? Yes
[2024-06-28 06:16] LABS: Anisocytosis Slight; HCT 40.9 % (39.0-53.0); HGB 12.6 gm/dL (13.0-17.5); Hypochromasia Marked; MCH 27.6 pg (25.0-35.0); MCHC 30.8 g/dL (31.0-37.0); MCV 89.6 fL (80.0-100.0); Mean Platelet Volume 7.8; Platelet Count 364 k/uL (150-450); RBC 4.57 m/uL (4.30-5.90); RDW 16.6 % (11.5-15.5); WBC 8.9 k/uL (3.8-10.6)
[2024-06-28 06:31] LABS: ALT 50 U/L (4-49); AST 51 U/L (17-59); African American GFR (CKD) >90 (>60 ml/min/1.73 sqM); Albumin 3.4 g/dL (3.5-5.0); Alkaline Phosphatase 142 U/L (38-126); Anion Gap 7 mmol/L; Blood Urea Nitrogen 21 mg/dL (9-20); Calcium 8.9 mg/dL (8.4-10.2); Carbon Dioxide 29 mmol/L (22-30); Chloride 105 mmol/L (98-107); Glucose 157 mg/dL (74-99); Non-African American GFR(CKD) >90 (>60 ml/min/1.73 sqM); Potassium 3.8 mmol/L (3.5-5.1); Sodium 141 mmol/L (137-145); Total Bilirubin 1.5 mg/dL (0.2-1.3); Total Protein 5.8 g/dL (6.3-8.2)
[2024-06-28] MEDS: POTASSIUM BICARBONATE/CIT AC 20 MEQ TABLET.EFF NG-TUBE SCH (06:55)
--- NOTE | 2024-06-28 07:07 | XR ---
EXAM: XR chest 1V portable CLINICAL INDICATION:Male, 58 years old with history of respiratory evaluation; [facility] COMPARISON: 06/27/2024 TECHNIQUE: Chest single view. FINDINGS: Tracheostomy tube appears unchanged. The left arm PICC line has been removed. The patient is rotated towards the right, limiting evaluation. Cardiac mediastinal silhouette is jo ann sly unchanged with cardiac enlargement again noted and mild aortic tortuosity. Lungs and pleural spac es remain unchanged. Mild chronic senescent changes in the lungs, without evidence of acute superimpo sed infiltrate, sizable effusion, or pneumothorax. Stable bones and soft tissues. Cervical and lower thoracolumbar fixation hardware again seen. IMPRESSION: 1. Interval removal of the PICC line. Tracheostomy tube unchanged. 2. No acute cardiopulmonary abnormality.
--- NOTE | 2024-06-28 09:52 | P.PN ---
Subjective Progress Note Date: 06/28/24 Principal diagnosis: L2 vertebral body compression fracture, postoperative day #18, acute CVA Patient is a 58-year-old white male with past medical history significant for obstructive sleep apnea with home CPAP, COPD, ex tobacco smoker, marijuana smoker, atrial fibrillation with previous cardioversion and anticoagulated on Xarelto, diabetes mellitus, hypertension, heart failure, and previous spinal surgeries. His primary care provider is Dr. Deuce Brito. He is currently intubated to the mechanical ventilator, unable to provide any information for HPI. Of note, patient recently underwent an L2 to pelvis posterior lateral decompression and fusion on 05/19/[address] [facility]. During this admission, he initially was recovered in the intensive care unit. Technically, difficult to extubate, and did require BiPAP support immediately after extubation. He was eventually discharged home on 05/26/2024. Patient returned the emergency department on 06/06/2024. On review of the ER documentation, he had a fall while at home. CT of the lumbar spine demonstrated new compression fracture of L2 vertebral body with compression of the vertebral body down to the pedicle screws bilaterally and loosening the left pedicle screw. New left pedicle/transverse process of L2 and L3 fractures around the hardware with mild displacement. Fractures of the right transverse process of L2 and L3. Likely postsurgical subcutaneous gas in the surgical bed. Patient underwent revision thoracic T10 to pelvis decompression fusion yesterday. Intraoperatively, patient had an EBL of 1 L. He has received a total of 5 units of PRBCs, 1 FFP, and 1 pack platelets. He was sent to the intensive care unit postoperatively. He remains on the mechanical ventilator. Chest x-ray shows the endotracheal tube approximately 4.3 cm above the shashank. There is cardiomegaly with pulmo nary vascular congestion suggested. No pleural effusions, pneumothoraces, focal consolidations. Initial ABG had a PaO2 of 80, pCO2 of 61, pH of 7.27. This was done on original ventilator settings of assist-control, respiratory rate 14, tidal volume 500, FiO2 1 9%, and PEEP of 5. My supervising physician is already increased the patient's respiratory rate to 20. He is currently synchronous wit h mechanical ventilator. There is a moderate amount of clear to white endotracheal secretions. Peak pressures 23. He is sedated with propofol which is currently infusing at 50 mcg/kg/min. He is fairly unarousable. Will withdraw to painful stimuli in all 4 extremities. There is also norepinephrine infusing at 0.02 mcg/kg/min. There is a MAP goal of 80 mmHg to support [employer] perfusion. LR is infusing at 10 MLS per hour. There is a Hemovac with a total of 220 serosanguineous output since surgery. We are awaiting postoperative labs. Preoperatively, CBC: WBC count 9.4, hemoglobin 9.6, hematocrit 32.5, platelets 516. Preoperative CMP: Sodium 137, potassium 4.1, chloride 104, serum bicarb 27, BUN 18, creatinine 0.61, glucose 143. LFTs unremarkable. Receiving prophylactic cefazolin. Note that preoperatively, patient did have a cardiac evaluation. Repeat echocardiogram shows a severely reduced left ventricular ejection fraction of 25 to 30% as well as mild mitral and tricuspid regurgi tation. Heart rhythm is atrial fibrillation with controlled ventricular response. Normally anticoagulated on Xarelto, however, this is on hold for surgery. Progress note dated June 20, 2024. 58-year-old male seen in room 255. The patient remains critically ill on the mechanical ventilator. Ventilator settings include volume assist-control, rate 20, tidal volume 500, FiO2 40%, PEEP of 5. Blood gases are currently pending. Patient continues on heparin via weight-based protocol, and tube feedings. In addition, the patient remains on propofol at 20 mcg/kg/min. Current laboratory data from June 20 are pending. Patient is able to tolerate. Pressure support and CPAP. Because of his poor mental status from a CVA, and airway secretions, it has been decided not to extubate the patient. Rather, the patient will have a tracheostomy and PEG tube placed on Saturday. Labs, x-rays, and all medications are reviewed. The patient also continues on ertapenem, for his ESBL Escherichia coli. Current medications include vitamin C, Lipitor, Dulcolax, Pulmicort, Wellbutrin, chlorhexidine, vitamin D3, Flexeril, Farxiga, ertapenem, ferrous sulfate, formoterol, Lasix, Neurontin, heparin, Dilaudid, insulin, DuoNeb, magnesium, metoprolol, Singulair, Narcan, Zofran, Protonix, Paxil, potassium pr otocol, and Senokot. Progress note dated June 21, 2024. 58-year-old male again seen in room 255. In my opinion, the patient is not yet ready to be extubated, despite the fact that he is has some reasonable success with weaning trials. His overall mental status is poor, and he still has issues with secretions. He apparently is scheduled for tracheostomy and PEG tube in the morning. His ventilator settings include volume assist-control, rate 20, tidal volume 500, FiO2 40%, PEEP of 5. Blood gases this morning show pO2 of 94, pCO2 44, pH is 7.47. His CPAP trial was pressure support of 7, CPAP of 5, and 40%. The patient is on saline at KVO, IV heparin, and propofol, at 30 mcg/kg/min. He is getting vital high-protein at 40, which is goal. Current labs include a white count 7.3, hemoglobin 9.5, hematocrit 37.6, and platelet count of 689,000. Sodium 139, potassium 3.9, chlorides 105, CO2 28, BUN 17, creatinine 0.40. Glucose is 110. Calcium is 8.5. Wound cultures were positive for ESBL Escherichia coli. Chest x-ray shows some patchy infiltrates. Patient was seen today on 06/22/2024, remains in the ICU, intubated and mechanically ventilated. Patient is on assist-control rate of 20 tidal volume 500 FiO2 40% and PEEP of 5 ABG showed a pO2 of 69 pCO2 40 0 pH of 7.50. Patient remains on propofol at 40 mcg/kg/min, remains on ertapenem, patient had a PICC line placed today, and he is supposed to have tracheostomy today as already arranged for by Dr. Lopez. Apparently the patient has been failure to wean, this failure was felt to be secondary to significant amount of secretions that the patient had, and also related to mental status/CVA. Again the patient is scheduled to have a PEG tube and tracheostomy today. I am not planning any weaning trials on the patient today. Reviewed all his labs and a chest x- ray.WBC count is 7.7 hemoglobin is 11.8. Basic metabolic profile is relatively normal renal profile is normal chest x-ray showed mild pulmonary vascular conge stion, it also showed some patchy atelectasis or consolidation of the right lung base patient include Lipitor, Dulcolax, Pulmicort, Wellbutrin, Peridex, vitamin D3, Flexeril, farXCIGA, Triptafen-M, iron, Perforomist, Lasix 40 mg p.o. daily, gabapentin, heparin, nebulized Atrovent, NovoLog insulin, Dilaudid, LR, Lopressor, Singulair, Protonix, Paxil, propofol and Senokot. Patient was evaluated today on 06/23/24, patient is now status post tracheostomy, PEG tube placement, PICC line placement, remains on the vent, seems to be now synchronous with the ventilator, and I had to increase his propofol. His gases are marginal with a pO2 of 73 pCO2 41 pH of 7.47 his O2 saturation is marginal and he is on assist-control rate of 20 tidal volume 500 FiO2 60% PEEP of 5 which I increased to 8. Patient is on propofol at 50 mcg/kg/min, increased to 75 mcg/kg/min. Remains on Invanz remains on enteral feeding, and this will be restarted today via PEG tube. Considering the gases considering the chest x-ray and considering the overall clinical appearance of the patient, I do not believe he is ready to be weaned, actually the patient needs more sedation to make sure that he is synchronous with the ventilator. WBC count is 10.2 hemoglobin 11.7 electrolytes are normal, renal profile is normal. Chest x-ray showed tracheostomy in proper position, slight opacities persist. Mostly atelectasis, possible pneumonia Patient was evaluated today on 06/24/2024, patient remained ICU, intubated, mechanically ventilated, tracheostomy is intact. Patient is on assist-control rate of 20 tidal volume 500 FiO2 50% PEEP 8 ABG showed a pO2 of 101 pCO2 49 pH of 7.40 hence FiO2 was cut down to 45% and PEEP Down to 5 remains on propofol at 55 mcg/kg/min, off norepinephrine, patient remains in atrial fibrillation, rate is fairly well-controlled. Patient also remains on Invanz, and that is being addressed by infectious disease. WBC count is 10.3 hemoglobin 12.5. Platelets are 483. Metabolic profile and renal profile are normal Patient was evaluated today on , remains intubated, mechanically trish tilated, on assist-control rate of 20 tidal volume 500 FiO2 45% PEEP of 5 ABG showed a pO2 of 89 pCO2 42 pH of 7.47. Remains on propofol at 30 mcg/kg/min remains on LR at 20 cc/h, 6 and receiving vital HP for enteral feeding/nutritional support. Today will give the patient a trial of weaning with IMV of 10 and pressure support of 10, and if tolerated will eventually transition to pressure support and CPAP. If not tolerated the patient will go back on assist-control mode of mechanical ventilation. His mental status is marginal, patient is not following any instructions, nonetheless he is on propofol which I plan to discontinue and give the patient a sedation interruption/holiday. Chest x-ray is showing improvement labs are normal CBC is relatively normal renal profile is normal patient does have history of cardiomyopathy and LV dysfunction with ejection fraction of 25% but he is not in heart failure at present looking at his chest x-ray. Patient was evaluated today on 06/26/2024, remains in the ICU, intubated and mechanically ventilated. He is on assist-control rate of 20 tidal volume 500 FiO2 45% and PEEP of 5 patient seems to be comfortable, not in distress, however mental status is extremely poor, patient does not follow any instructions. Eyes are open but patient does not follow any instructions as far as squeezing hands or wiggling toes or closing and opening eyes. Obviously he has a significant encephalopathy. ABG showed a pO2 of 98 pCO2 42 point of 7.48, hence no changes were made in the vent settings. Yesterday the patient did not tolerate much of weaning trial today I plan to change propofol to Precedex, and keep him on Precedex as well as assist-control mode of mechanical ventilation. His chest x- ray is showing improvement his labs are basically unremarkable. Remains on Invanz. Patient is going to be difficult to wean mostly because of his underly ing neurological status/encephalopathy. Have to consider select care specialty for this patient in the long run. Patient was seen today on 06/27/2024, remains in the ICU intubated and mechanically ventilated. Patient is on assist-control rate of 20 tidal volume 500 FiO2 45% PEEP of 5 ABG showed a pO2 of 131 pCO2 39 pH of 7.52. Patient is now off propofol, not receiving any narcotics or sedatives except he is on Precedex at 0.3 mcg/kg/h. Has been off propofol since yesterday. Patient is awake, he seems to be very comfortable on the ventilator but still on assist- control mode of mechanical ventilation. Still receiving Invanz and today I plan to give the patient another trial of pressure support of 12 and CPAP. Chest x- ray is relatively unremarkable. Minimal left basilar atelectasis noted. WBC count is 9.1 hemoglobin 13.2 electrolytes are normal except for potassium of 3.4, Renal profile is normal Patient was seen and examined today on 06/28/2024, remains in the ICU, intubated and mechanically ventilated. Patient is back on assist-control mode of mechanical ventilation, rate of 20 tidal volume 500 FiO2 down to 40% from 45% and PEEP of 5 ABG showed a pO2 of 110 pCO2 42 pH of 7.49. WBC count is 8.9 hemoglobin is 12.6. Patient is awake, mumbling few things but difficult to un derstand. Patient does not seem to comprehend most of the time. Does not follow any instructions like closing eyes, squeezing hands, or wiggling toes. Apparently the patient had a short trial of pressure support and CPAP yesterday, I plan to do the same today with a pressure support of 12 and CPAP again. Remains off propofol, he is on minimal dose of Precedex 0.3 mcg/kg/h. Chest x- ray showed no evidence of acute cardiopulmonary changes. Objective - Vital Signs Vital signs: Vital Signs Temp 100 F H 06/28/24 04:00 Pulse 86 06/28/24 08:15 Resp 24 06/28/24 07:00 BP 123/101 06/28/24 07:00 Pulse Ox 98 06/28/24 07:00 FiO2 40 06/28/24 09:25 Intake & Output 06/27/24 06/28/24 06/28/24 18:59 06:59 18:59 Intake Total 969.94 1204.867 177.102 Output Total 725 685 40 Balance 244.94 519.867 137.102 Weight 103.3 kg Intake: IV 270 240 20 Ertapenem 1 gm In Sodium 50 Chloride 0.9% 50 ml @ 100 mls/hr IVPB DAILY [facility] Rx #:[id number] Lactated Ringers 1,000 ml 220 240 20 @ 20 mls/hr IV .Q24H [facility] Rx#:[id number] Intake, IV Titration 99.94 90.867 93.102 Amount Dexmedetomidine/0.9% NaCl 99.94 90.867 93.102 (Pmx) 400 mcg In Empty Bag 1 bag @ 0.2 MCG/KG/HR 5.26 mls/hr IV .Q19H1M [facility] Rx#:[id number] Tube Feeding 540 754 64 Other 60 120 Output: Urine 725 685 40 Other: Voiding Method Indwelling Catheter Indwelling Catheter # Bowel Movements 1 ABP, PAP, CO, CI - Last Documented Arterial Blood Pressure 106/58 - Exam General: 58-year-old white male intubated mechanically ventilated. Head: Atraumatic, normocephalic HEENT: PERRLA, EOMI, nonicteric, no neck masses, no JVD, gastric tube is intact. Tracheostomy is intact. Skin: Skin is warm and dry and no rashes or lesions are noted. Cardiovascular: Irregular rhythm, no S3 gallop, 2/6 systolic murmur throughout the precordium Respiratory: Diminished breath sounds at the bases, no crackles, no rhonchi no wheezes Gastrointestinal: Soft nontender no megaly no rebound no guarding new PEG tube is noted. Seems to be intact Musculoskeletal: No deformities, could not assess strength Neurological: Patient opens eyes, again does not follow any instructions, does not seem to comprehend instructions. Overall remains encephalopathic Psychiatric: Could not fully assess, patient is encephalopathic - Labs CBC & Chem 7: 06/28/24 05:56 06/28/24 05:56 Labs: Abnormal Lab Results - Last 24 Hours (Table) 06/27/24 06/27/24 06/27/24 Range/Units 11:35 17:58 23:44 Hgb (13.0-17.5) gm/dL MCHC (31.0-37.0) g/dL RDW (11.5-15.5) % ABG pH (7.35-7.45) ABG pO2 (83-108) mmHg ABG HCO3 (21-25) mmol/L ABG Total CO2 (19-24) mmol/L ABG O2 Saturation (94-97) % BUN (9-20) mg/dL Creatinine (0.66-1.25) mg/dL Glucose (74-99) mg/dL POC Glucose (mg/dL) 125 H 140 H 153 H (70-110) mg/dL Total Bilirubin (0.2-1.3) mg/dL ALT (4-49) U/L Alkaline Phosphatase (38-126) U/L Total Protein (6.3-8.2) g/dL Albumin (3.5-5.0) g/dL 06/28/24 06/28/24 06/28/24 Range/Units 05:19 05:36 05:56 Hgb 12.6 L (13.0-17.5) gm/dL MCHC 30.8 L (31.0-37.0) g/dL RDW 16.6 H (11.5-15.5) % ABG pH 7.49 H (7.35-7.45) ABG pO2 110 H (83-108) mmHg ABG HCO3 32 H (21-25) mmol/L ABG Total CO2 34 H (19-24) mmol/L ABG O2 Saturation 99.1 H (94-97) % BUN (9-20) mg/dL Creatinine (0.66-1.25) mg/dL Glucose (74-99) mg/dL POC Glucose (mg/dL) 163 H (70-110) mg/dL Total Bilirubin (0.2-1.3) mg/dL ALT (4-49) U/L Alkaline Phosphatase (38-126) U/L Total Protein (6.3-8.2) g/dL Albumin (3.5-5.0) g/dL 06/28/24 Range/Units 05:56 Hgb (13.0-17.5) gm/dL MCHC (31.0-37.0) g/dL RDW (11.5-15.5) % ABG pH (7.35-7.45) ABG pO2 (83-108) mmHg ABG HCO3 (21-25) mmol/L ABG Total CO2 (19-24) mmol/L ABG O2 Saturation (94-97) % BUN 21 H (9-20) mg/dL Creatinine 0.34 L (0.66-1.25) mg/dL Glucose 157 H (74-99) mg/dL POC Glucose (mg/dL) (70-110) mg/dL Total Bilirubin 1.5 H (0.2-1.3) mg/dL ALT 50 H (4-49) U/L Alkaline Phosphatase 142 H (38-126) U/L Total Protein 5.8 L (6.3-8.2) g/dL Albumin 3.4 L (3.5-5.0) g/dL Microbiology - Last 24 Hours (Table) 06/25/24 15:20 Gram Stain - Final Sputum Sputum Culture - Final Rosangela albicans 06/26/24 01:12 Gram Stain - Preliminary Sputum Sputum Culture - Preliminary Rosangela albicans Assessment and Plan Assessment: Impression: Acute hypoxic respiratory failure, multifactorial secondary to underlying COPD, congestive heart failure with reduced ejection fraction, resolved Status post fall with L2 vertebral compression fracture Postoperative day #18 following revision of T10 to pelvis decompression and fusion with stabilization Acute left frontal parietal ischemic CVA, while inpatient ESBL E. coli wound infection,/surgical site infection remains on Invanz, as per ID on the case. L2 to pelvis posterior lateral decompression and fusion on 05/19/2024 Chronic atrial fibrillation Benign essential hypertension Dyslipidemia Type 2 diabetes Obesity with BMI of 38.4 Obstructive sleep apnea syndrome Ex-smoker Remote history of prior C2-T2 decompression and fusion Failure to wean status post tracheostomy on 06/22/2024 patient seems to have profound encephalopathy related to his recent CVA I believe the failure to wean seems to be mostly related to his neurological status continue to follow instructions Recommendation: Keep patient on mechanical ventilation/assist-control mode Continue to avoid sedation and narcotics but continue Precedex for now Will try daily trials of pressure support of 12 and CPAP. And if tolerated could even try trach collar Continue present supportive care measures Continue nutritional support via PEG Continue tracheostomy care Continue GI and DVT prophylaxis Continue Invanz until discontinued by infectious disease patient had ESBL/E. coli, surgical wound infection Patient remains critically ill select care specialty evaluation next week Critical care time is over 30 Time with Patient: Greater than 30
[2024-06-28 13:17] LABS: Glucose,Whole Blood 118 mg/dL (70-110)
--- NOTE | 2024-06-28 15:57 | P.PN ---
Subjective Progress Note Date: 06/28/24 Principal diagnosis: Reason for follow-up is lumbar surgical site infection ESBL E. coli Patient is a 58-year-old male with a past medical history significant for diabetes mellitus hypertension COPD atrial fibrillation sleep apnea initially presented to hospital with back pain has been diagnosed with L1-L3 fracture status post extensive surgery and surgical cultures came back positive with ESBL E. coli prompted this consultation.Patient is status post tracheostomy and PEG tube completed on 06/22/2024. On today's evaluation that is 06/28/2024, the patient is running a low-grade fever of 100.7 patient is hemodynamically stable FiO2 is currently stable at 40% no significant purulent secretions through the ET diarrhea or any other change reported by the nursing staff. Patient white count is 8.8, creatinine 0.34 Objective - Vital Signs Vital signs: Vital Signs Temp 100.7 F H 06/28/24 12:00 Pulse 86 06/28/24 15:00 Resp 19 06/28/24 15:00 BP 120/94 06/28/24 15:00 Pulse Ox 98 06/28/24 15:00 FiO2 40 06/28/24 12:00 Intake & Output 06/27/24 06/28/24 06/28/24 18:59 06:59 18:59 Intake Total 969.94 1204.867 809.106 Output Total 725 685 785 Balance 244.94 519.867 24.106 Weight 103.3 kg Intake: IV 270 240 170 Ertapenem 1 gm In Sodium 50 50 Chloride 0.9% 50 ml @ 100 mls/hr IVPB DAILY [facility] Rx #:[id number] Lactated Ringers 1,000 ml 220 240 120 @ 20 mls/hr IV .Q24H [facility] Rx#:[id number] Intake, IV Titration 99.94 90.867 131.106 Amount Dexmedetomidine/0.9% NaCl 99.94 90.867 131.106 (Pmx) 400 mcg In Empty Bag 1 bag @ 0.2 MCG/KG/HR 5.26 mls/hr IV .Q19H1M [facility] Rx#:[id number] Tube Feeding 540 044 448 Other 60 120 60 Output: Urine 725 685 785 Other: Voiding Method Indwelling Catheter Indwelling Catheter Indwelling Catheter # Bowel Movements 1 ABP, PAP, CO, CI - Last Documented Arterial Blood Pressure 106/58 - Exam GENERAL DESCRIPTION: Middle-age male intubated on the vent RESPIRATORY SYSTEM: Unlabored breathing , decreased breath sounds at bases HEART: S1 S2 regular rate and rhythm , ABDOMEN: Soft , no tenderness EXTREMITIES: No edema feet - Labs CBC & Chem 7: 06/28/24 05:56 06/28/24 05:56 Labs: Abnormal Lab Results - Last 24 Hours (Table) 06/27/24 06/27/24 06/28/24 Range/Units 17:58 23:44 05:19 Hgb (13.0-17.5) gm/dL MCHC (31.0-37.0) g/dL RDW (11.5-15.5) % ABG pH (7.35-7.45) ABG pO2 (83-108) mmHg ABG HCO3 (21-25) mmol/L ABG Total CO2 (19-24) mmol/L ABG O2 Saturation (94-97) % BUN (9-20) mg/dL Creatinine (0.66-1.25) mg/dL Glucose (74-99) mg/dL POC Glucose (mg/dL) 140 H 153 H 163 H (70-110) mg/dL Total Bilirubin (0.2-1.3) mg/dL ALT (4-49) U/L Alkaline Phosphatase (38-126) U/L Total Protein (6.3-8.2) g/dL Albumin (3.5-5.0) g/dL 06/28/24 06/28/24 06/28/24 Range/Units 05:36 05:56 05:56 Hgb 12.6 L (13.0-17.5) gm/dL MCHC 30.8 L (31.0-37.0) g/dL RDW 16.6 H (11.5-15.5) % ABG pH 7.49 H (7.35-7.45) ABG pO2 110 H (83-108) mmHg ABG HCO3 32 H (21-25) mmol/L ABG Total CO2 34 H (19-24) mmol/L ABG O2 Saturation 99.1 H (94-97) % BUN 21 H (9-20) mg/dL Creatinine 0.34 L (0.66-1.25) mg/dL Glucose 157 H (74-99) mg/dL POC Glucose (mg/dL) (70-110) mg/dL Total Bilirubin 1.5 H (0.2-1.3) mg/dL ALT 50 H (4-49) U/L Alkaline Phosphatase 142 H (38-126) U/L Total Protein 5.8 L (6.3-8.2) g/dL Albumin 3.4 L (3.5-5.0) g/dL 06/28/24 Range/Units 13:16 Hgb (13.0-17.5) gm/dL MCHC (31.0-37.0) g/dL RDW (11.5-15.5) % ABG pH (7.35-7.45) ABG pO2 (83-108) mmHg ABG HCO3 (21-25) mmol/L ABG Total CO2 (19-24) mmol/L ABG O2 Saturation (94-97) % BUN (9-20) mg/dL Creatinine (0.66-1.25) mg/dL Glucose (74-99) mg/dL POC Glucose (mg/dL) 118 H (70-110) mg/dL Total Bilirubin (0.2-1.3) mg/dL ALT (4-49) U/L Alkaline Phosphatase (38-126) U/L Total Protein (6.3-8.2) g/dL Albumin (3.5-5.0) g/dL Microbiology - Last 24 Hours (Table) 06/25/24 15:20 Gram Stain - Final Sputum Sputum Culture - Final Rosangela albicans 06/26/24 01:12 Gram Stain - Preliminary Sputum Sputum Culture - Preliminary Rosangela albicans Assessment and Plan (1) Surgical site infection Current Visit: Yes Status: Acute Priority: High Code(s): T81.49XA - INFECTION FOLLOWING A PROCEDURE, OTHER SURGICAL SITE, INIT SNOMED Code(s): 04509872 (2) Infection due to ESBL-producing Escherichia coli Current Visit: Yes Status: Acute Priority: High Code(s): A49.8 - OTHER BACTERIAL INFECTIONS OF UNSPECIFIED SITE; Z16.12 - EXTENDED SPECTRUM BETA LACTAMASE (ESBL) RESISTANCE SNOMED Code(s): 939075770 Plan: 1patient presented to the hospital with back pain more than a week ago from initial evaluation in this patient who did have extensive lumbosacral spine surgery now has been taken back to the OR noticed to have hardware failure fracture of the vertebra s/p redo surgery and culture which has been finalized as ESBL E. coli 2-patient remains to be afebrile white count has been normal blood sputum culture has been negative 3patient is s/p for trach and PEG completed on 06/22/2024, 4-patient to continue with Invanz, 5patient did have a new fever and colitis check a blood culture check a urine culture and adjust antibiotic on the basis of those culture Dictation was produced using [employer] dictation software. please excuse any grammatical, word or spelling errors. Time with Patient: Less than 30
[2024-06-28 17:32] LABS: Appearance,Urine Turbid (Clear); Bacteria,Urine Occasional /hpf; Bilirubin,Urine Negative (Negative); Blood,Urine Large (Negative); Color,Urine Yellow; Glucose,Urine (UA) 4+ (Negative); Ketones,Urine Negative (Negative); Leukocyte Esterase,Urine Negative (Negative); Mucus,Urine Rare /hpf; Nitrite,Urine Negative (Negative); PH, Urine 7.5 (5.0-8.0); Protein,Urine Trace (Negative); RBC,Urine >182 /hpf (0-5); Specific Gravity,Urine 1.039 (1.001-1.035); Urobilinogen,Urine >12.0 mg/dL (<2.0); WBC,Urine 1 /hpf (0-5)
[2024-06-28 17:49] LABS: Glucose,Whole Blood 152 mg/dL (70-110)
[2024-06-28 23:39] LABS: Glucose,Whole Blood 126 mg/dL (70-110)
[2024-06-29 04:49] VITALS: TEMP 97.8
[2024-06-29 05:09] LABS: Glucose,Whole Blood 144 mg/dL (70-110)
[2024-06-29 05:12] LABS: ABG Base Excess 7.5 mmol/L; ABG HCO3 31 mmol/L (21-25); ABG Oxygen Saturation 99.1 % (94-97); ABG PCO2 40 mmHg (35-45); ABG PO2 113 mmHg (83-108); ABG TCO2 32 mmol/L (19-24); Allen Test Performed? Yes
[2024-06-29 06:56] LABS: Anisocytosis Slight; Basophils # (A) 0.1 k/uL (0-0.2); Basophils % (A) 1 %; Eosinophils # (A) 0.2 k/uL (0-0.7); Eosinophils % (A) 2 %; HCT 42.2 % (39.0-53.0); HGB 12.8 gm/dL (13.0-17.5); Hypochromasia Marked; Lymphocytes % (A) 11 %; MCH 27.6 pg (25.0-35.0); MCHC 30.2 g/dL (31.0-37.0); MCV 91.3 fL (80.0-100.0); Mean Platelet Volume 7.8; Monocytes # (A) 0.7 k/uL (0-1.0); Monocytes % (A) 8 %; Neutrophils # (A) 6.9 k/uL (1.3-7.7); Neutrophils % (A) 78 %; Platelet Count 281 k/uL (150-450); RBC 4.62 m/uL (4.30-5.90); RDW 16.4 % (11.5-15.5); WBC 8.9 k/uL (3.8-10.6)
[2024-06-29 07:03] VITALS: BP 139/98; PULSE 87; RESP 17
[2024-06-29 07:15] LABS: African American GFR (CKD) >90 (>60 ml/min/1.73 sqM); Anion Gap 4 mmol/L; Blood Urea Nitrogen 24 mg/dL (9-20); Calcium 8.8 mg/dL (8.4-10.2); Carbon Dioxide 31 mmol/L (22-30); Chloride 105 mmol/L (98-107); Glucose 130 mg/dL (74-99); Non-African American GFR(CKD) >90 (>60 ml/min/1.73 sqM); Potassium 3.8 mmol/L (3.5-5.1); Sodium 140 mmol/L (137-145)
[2024-06-29] MEDS ORDERED: POTASSIUM BICARBONATE/CIT AC 20 MEQ TABLET.EFF NG-TUBE SCH (08:00)
[2024-06-29] MEDS ORDERED: SENNOSIDES-DOCUSATE SODIUM 1 EACH TAB PO ONE (08:15)
[2024-06-29] MEDS ORDERED: METOPROLOL TARTRATE 50 MG TAB ONE ×2 (08:15→21:00)
[2024-06-29] MEDS ORDERED: PANTOPRAZOLE 40 MG/10 ML VIAL ONE (08:15)
[2024-06-29] MEDS ORDERED: POTASSIUM BICARBONATE/CIT AC 20 MEQ TABLET.EFF ONE (08:15)
[2024-06-29] MEDS ORDERED: GABAPENTIN 400 MG CAP ONE ×2 (08:16→21:01)
[2024-06-29] MEDS ORDERED: CYCLOBENZAPRINE 10 MG TAB ONE ×2 (08:16→21:01)
[2024-06-29] MEDS ORDERED: ASCORBIC ACID 500 MG TAB ONE (08:16)
[2024-06-29] MEDS ORDERED: CHOLECALCIFEROL 125 MCG (5000 IU) TABLET ONE (08:16)
[2024-06-29] MEDS ORDERED: FUROSEMIDE 40 MG TAB ONE (08:16)
[2024-06-29 12:04] LABS: Glucose,Whole Blood 137 mg/dL (70-110)
[2024-06-29] MEDS ORDERED: DEXMEDETOMIDINE/0.9% NACL(PMX) 400 MCG/100 ML IV ONE ×2 (15:13→22:05)
[2024-06-29] MEDS ORDERED: EMPTY BAG 1 BAG ONE ×3 (15:13→22:05)
[2024-06-29 17:40] LABS: Glucose,Whole Blood 124 mg/dL (70-110)
[2024-06-29] MEDS ORDERED: FORMOTEROL FUMARATE 20 MCG/2 ML NEBU INHALATION ONE (19:45)
[2024-06-29] MEDS ORDERED: IPRATROPIUM-ALBUTEROL 3 ML NEB ONE (19:45)
[2024-06-29] MEDS ORDERED: BUDESONIDE 1 MG/2 ML NEBU INHALATION ONE (19:45)
[2024-06-29] MEDS ORDERED: ATORVASTATIN 40 MG TAB ONE (21:00)
[2024-06-29] MEDS ORDERED: PARoxetine 20 MG TAB ONE (21:01)
[2024-06-29] MEDS ORDERED: MONTELUKAST 10 MG TAB ONE (21:01)
[2024-06-30 00:02] LABS: Glucose,Whole Blood 148 mg/dL (70-110)
[2024-06-30] MEDS ORDERED: POTASSIUM BICARBONATE/CIT AC 20 MEQ TABLET.EFF ONE (06:02)
[2024-06-30 06:04] LABS: Glucose,Whole Blood 118 mg/dL (70-110)
[2024-06-30] MEDS ORDERED: FORMOTEROL FUMARATE 20 MCG/2 ML NEBU INHALATION ONE ×2 (07:51→19:59)
[2024-06-30] MEDS ORDERED: BUDESONIDE 1 MG/2 ML NEBU INHALATION ONE ×2 (07:51→19:59)
[2024-06-30] MEDS ORDERED: IPRATROPIUM-ALBUTEROL 3 ML NEB ONE ×2 (07:51→19:59)
[2024-06-30] MEDS ORDERED: DEXMEDETOMIDINE/0.9% NACL(PMX) 400 MCG/100 ML IV ONE ×3 (08:30→22:40)
[2024-06-30] MEDS ORDERED: EMPTY BAG 1 BAG ONE ×3 (08:31→22:40)
[2024-06-30] MEDS ORDERED: PANTOPRAZOLE 40 MG/10 ML VIAL ONE (08:32)
[2024-06-30] MEDS ORDERED: METOPROLOL TARTRATE 50 MG TAB ONE ×3 (08:32→20:54)
[2024-06-30] MEDS ORDERED: CYCLOBENZAPRINE 10 MG TAB ONE ×2 (08:32→20:41)
[2024-06-30] MEDS ORDERED: GABAPENTIN 400 MG CAP ONE ×4 (08:32→20:41)
[2024-06-30] MEDS ORDERED: CHOLECALCIFEROL 125 MCG (5000 IU) TABLET ONE (08:33)
[2024-06-30] MEDS ORDERED: FUROSEMIDE 40 MG TAB ONE (08:33)
[2024-06-30] MEDS ORDERED: ASCORBIC ACID 500 MG TAB ONE (08:48)
[2024-06-30 12:00] LABS: Glucose,Whole Blood 139 mg/dL (70-110)
[2024-06-30] MEDS ORDERED: HYDROmorphone 1 MG/ML 1 ML SYRINGE ONE ×2 (16:38→22:39)
[2024-06-30 16:53] LABS: Glucose,Whole Blood 158 mg/dL (70-110)
[2024-06-30] MEDS ORDERED: INSULIN ASPART (NovoLOG) 100 UNIT/ML VIAL SQ ONE (17:21)
[2024-06-30] MEDS ORDERED: ATORVASTATIN 40 MG TAB ONE (20:40)
[2024-06-30] MEDS ORDERED: PARoxetine 20 MG TAB ONE (20:42)
[2024-06-30] MEDS ORDERED: MONTELUKAST 10 MG TAB ONE (20:42)
[2024-07-01 00:14] LABS: Glucose,Whole Blood 141 mg/dL (70-110)
[2024-07-01] MEDS ORDERED: HYDROmorphone 1 MG/ML 1 ML SYRINGE ONE ×3 (04:00→15:11)
[2024-07-01] MEDS ORDERED: EMPTY BAG 1 BAG ONE (05:16)
[2024-07-01] MEDS ORDERED: DEXMEDETOMIDINE/0.9% NACL(PMX) 400 MCG/100 ML IV ONE (05:16)
[2024-07-01] MEDS ORDERED: IPRATROPIUM-ALBUTEROL 3 ML NEB ONE (07:41)
[2024-07-01] MEDS ORDERED: FORMOTEROL FUMARATE 20 MCG/2 ML NEBU INHALATION ONE (07:41)
[2024-07-01] MEDS ORDERED: BUDESONIDE 1 MG/2 ML NEBU INHALATION ONE (07:41)
[2024-07-01] MEDS ORDERED: CYCLOBENZAPRINE 10 MG TAB ONE (08:11)
[2024-07-01] MEDS ORDERED: METOPROLOL TARTRATE 50 MG TAB ONE (08:11)
[2024-07-01] MEDS ORDERED: DAPAGLIFLOZIN PROPANEDIOL 10 MG TABLET ONE (08:11)
[2024-07-01] MEDS ORDERED: ASCORBIC ACID 500 MG TAB ONE (08:11)
[2024-07-01] MEDS ORDERED: PANTOPRAZOLE 40 MG/10 ML VIAL ONE (08:11)
[2024-07-01] MEDS ORDERED: FUROSEMIDE 40 MG TAB ONE (08:12)
[2024-07-01] MEDS ORDERED: GABAPENTIN 400 MG CAP ONE ×2 (08:12→15:12)
[2024-07-01] MEDS ORDERED: CHOLECALCIFEROL 125 MCG (5000 IU) TABLET ONE (08:12)
[2024-07-01] MEDS ORDERED: oxyCODONE-APAP 10-325MG 1 EACH TAB ONE ×2 (08:15→15:11)
[2024-07-01 11:50] LABS: Glucose,Whole Blood 126 mg/dL (70-110)
[2024-07-01 12:29] LABS: Glucose,Whole Blood 122 mg/dL (70-110)
[2024-07-01] MEDS ORDERED: SENNOSIDES-DOCUSATE SODIUM 1 EACH TAB PO ONE (15:12)
--- NOTE | 2024-07-13 12:49 | XR ---
EXAMINATION TYPE: XR chest 1V portable DATE OF EXAM: 06/29/2024 COMPARISON: 06/28/2024 INDICATION: Chemical ventilation TECHNIQUE: Single frontal view of the chest is obtained. FINDINGS: The heart size is enlarged. The pulmonary vasculature is normal. Mild left perihilar infiltrate may be present. Patient rotated to the right. Tracheostomy tube is in the midline. IMPRESSION: 1. Mild left perihilar infiltrate. Correlate for atelectasis. 2. Cardiomegaly. 3. Tracheostomy tube with the tip in the midline.
--- NOTE | 2024-07-20 16:54 | CDI ---
Documentation Clarification Form Date: 07/20/2024 04:41:22 PM From: Destiny Meier Phone: Admit Date: 06/06/2024 12:53:00 PM Patient Name: Kvng Molina Visit Number: [id number] Discharge Date: 07/01/2024 04:30:00 PM ATTENTION: The Clinical Documentation Specialists (CDI) and [facility] Coding Staff appreciate your assistance in clarifying documentation. Please respond to the clarification below the line at the bottom and electronically sign. The CDI & [facility] Coding staff will review the response and follow-up if needed. Please note: Queries are made part of the Legal Health Record. If you have any questions, please contact the author of this message via ITS. Doctor/Provider: Pedro Lopez Hypotension is documented per Progress Note 06/11. Additional clarification regarding this diagnosis is requested. History/Risk Factors: 58yo M, L2-L3 right-sided transverseprocessFx, and L2-L3 left-sided pedicle/transverseprocess Fx, ABLA, Acute blood loss anemia, ASHF, HTN, ACH/HRF, NIDMII, persistent A Fib, HLD, morbid obesity, SU, COPD, Hx prior C2-I7apsomnspoxlknavzbtavdx, former smoker Clinical Indicators: 06/11/24VS: Temp 99.0 Pulse 109 Resp 25 BP 98/66Pulse Ox 96FiO2 80 Treatment: Norepinephrine4 mg; 5 units of PRBCsperioperatively, 1packplatelets, and is going to receive1 unit FFP. Can the hypotension be further specified? [ X] Postoperative Hypotension [ ] Other, please specify [ ] Unable to determine (Template Last Revised: January 2021) MTDD
--- NOTE | 2024-07-31 11:04 | CDI ---
Documentation Clarification Form Date: 07/31/2024 10:59:05 AM From: Destiny Meier Phone: Admit Date: 06/06/2024 12:53:00 PM Patient Name: Kvng Molina Visit Number: [id number] Discharge Date: 07/01/2024 04:30:00 PM ATTENTION: The Clinical Documentation Specialists (CDI) and [facility] Coding Staff appreciate your assistance in clarifying documentation. Please respond to the clarification below the line at the bottom and electronically sign. The CDI & [facility] Coding staff will review the response and follow-up if needed. Please note: Queries are made part of the Legal Health Record. If you have any questions, please contact the author of this message via ITS. Doctor/Provider: Pedro Brooksis documented per Progress Note 06/11. Additional clarification regarding this diagnosis is requested. History/Risk Factors: 58yo M, L2-L3 right-sidedtransverseprocessFx, and L2-L3 LT pedicle transverseprocessFx,ABLA,ASHF, HTN, ACH/HRF, NIDMII,persistent A Fib,HLD,obesity,SU,COPD, Hx prior C2-I8lvmuzxitdurfibbtoxjalz,former smoker Clinical Indicators: 06/11/24VS: Temp 99.0 Pulse 109 Resp 25 BP 98/66Pulse Ox 96FiO2 80 Treatment:Norepinephrine4 mg;5 units of PRBCsperioperatively, 1packplatelets, and is going to receive1 unit FFP. Can thehypotensionbe further specified? [ x ] Hypotension due to ABLA [ ] Hypotension due to drugs (please specify the drug(s)) [ ] Postoperative hypotension NOS [ ] Other, please specify [ ] Unable to determine (Template LastRevised: January 2021) MTDD
== END 2024-07-01 16:30 | DRG 4 ==
LOC: EC 10:57 → UNDOADMIN 12:53 → 4SSUR 12:53 → DISRECOVER 12:53 → 4SSUR 15:05 → 3SCARD 15:05 → 2SICU 06-09 15:31 → 3SCARD 06-09 15:31 → UNDODISIN 07-01 16:30
PROVIDERS: ADMIT Family Medicine; ATTEND Family Medicine
PROC: 5A1955Z Respiratory Ventilation, Greater than 96 Consecutive Hours (ICD-10-PCS; 2024-06-09)
PROC: 0PU40JZ Supplement Thoracic Vertebra with Synthetic Substitute, Open Approach (ICD-10-PCS; 2024-06-09)
PROC: 0QB00ZZ Excision of Lumbar Vertebra, Open Approach (ICD-10-PCS; 2024-06-09)
PROC: 8E0WXBZ Computer Assisted Procedure of Trunk Region (ICD-10-PCS; 2024-06-09)
PROC: 0SP004Z Removal of Internal Fixation Device from Lumbar Vertebral Joint, Open Approach (ICD-10-PCS; 2024-06-09)
PROC: 0QH304Z Insertion of Internal Fixation Device into Left Pelvic Bone, Open Approach (ICD-10-PCS; 2024-06-09)
PROC: 0QH204Z Insertion of Internal Fixation Device into Right Pelvic Bone, Open Approach (ICD-10-PCS; 2024-06-09)
PROC: 0BH18EZ Insertion of Endotracheal Airway into Trachea, Via Natural or Artificial Opening Endoscopic (ICD-10-PCS; 2024-06-09)
PROC: 30233N1 Transfusion of Nonautologous Red Blood Cells into Peripheral Vein, Percutaneous Approach (ICD-10-PCS; 2024-06-09)
PROC: 30233R1 Transfusion of Nonautologous Platelets into Peripheral Vein, Percutaneous Approach (ICD-10-PCS; 2024-06-09)
PROC: 3E033XZ Introduction of Vasopressor into Peripheral Vein, Percutaneous Approach (ICD-10-PCS; 2024-06-09)
PROC: 0QS004Z Reposition Lumbar Vertebra with Internal Fixation Device, Open Approach (ICD-10-PCS; principal; 2024-06-09 12:30)
PROC: 30233K1 Transfusion of Nonautologous Frozen Plasma into Peripheral Vein, Percutaneous Approach (ICD-10-PCS; 2024-06-10)
PROC: 3E0G76Z Introduction of Nutritional Substance into Upper GI, Via Natural or Artificial Opening (ICD-10-PCS; 2024-06-11)
PROC: 0DH63UZ Insertion of Feeding Device into Stomach, Percutaneous Approach (ICD-10-PCS; 2024-06-22)
PROC: 3E0G76Z Introduction of Nutritional Substance into Upper GI, Via Natural or Artificial Opening (ICD-10-PCS; 2024-06-22)
PROC: 0B110F4 Bypass Trachea to Cutaneous with Tracheostomy Device, Open Approach (ICD-10-PCS; 2024-06-22 11:20)
DX: S32.029A Unspecified fracture of second lumbar vertebra, initial encounter for closed fracture (principal); B37.1 Pulmonary candidiasis; I63.412 Cerebral infarction due to embolism of left middle cerebral artery; A41.51 Sepsis due to Escherichia coli [E. coli]; E44.0 Moderate protein-calorie malnutrition; G81.91 Hemiplegia, unspecified affecting right dominant side; I42.9 Cardiomyopathy, unspecified; J44.0 Chronic obstructive pulmonary disease with (acute) lower respiratory infection; T84.226A Displacement of internal fixation device of vertebrae, initial encounter; I48.19 Other persistent atrial fibrillation; E66.2 Morbid (severe) obesity with alveolar hypoventilation; J96.21 Acute and chronic respiratory failure with hypoxia; J96.22 Acute and chronic respiratory failure with hypercapnia; I50.22 Chronic systolic (congestive) heart failure; I11.0 Hypertensive heart disease with heart failure; E11.65 Type 2 diabetes mellitus with hyperglycemia; S32.039A Unspecified fracture of third lumbar vertebra, initial encounter for closed fracture; T81.41XA Infection following a procedure, superficial incisional surgical site, initial encounter; G93.49 Other encephalopathy; M50.01 Cervical disc disorder with myelopathy, high cervical region; L89.101 Pressure ulcer of unspecified part of back, stage 1; E87.3 Alkalosis; T81.31XA Disruption of external operation (surgical) wound, not elsewhere classified, initial encounter; D62 Acute posthemorrhagic anemia; R13.10 Dysphagia, unspecified; I95.89 Other hypotension; Z68.38 Body mass index [BMI] 38.0-38.9, adult; Z79.01 Long term (current) use of anticoagulants; M48.062 Spinal stenosis, lumbar region with neurogenic claudication; M47.27 Other spondylosis with radiculopathy, lumbosacral region; M47.26 Other spondylosis with radiculopathy, lumbar region; B96.20 Unspecified Escherichia coli [E. coli] as the cause of diseases classified elsewhere; R29.6 Repeated falls; M24.69 Ankylosis, other specified joint; G89.29 Other chronic pain; E78.5 Hyperlipidemia, unspecified; W01.0XXA Fall on same level from slipping, tripping and stumbling without subsequent striking against object, initial encounter; Y79.3 Surgical instruments, materials and orthopedic devices (including sutures) associated with adverse incidents; Z16.12 Extended spectrum beta lactamase (ESBL) resistance; Z86.14 Personal history of Methicillin resistant Staphylococcus aureus infection; Z87.891 Personal history of nicotine dependence; Z79.84 Long term (current) use of oral hypoglycemic drugs; Z79.51 Long term (current) use of inhaled steroids; Z79.899 Other long term (current) drug therapy
CPT/HCPCS: 36410; 36415; 36430; 36573; 36600; 43246; 70450; 70496; 70498; 71045; 72100; 72128; 72131; 76937; 80048; 80053; 80061; 81001; 82805; 83036; 83735; 84132; 84145; 85025; 85027; 85610; 85652; 85730; 86140; 86850; 86891; 86900; 86901; 86920; 87040; 87070; 87075; 87077; 87186; 87205; 93005; 93306; 94002; 94003; 94640; 94760; 96361; 96374; 99285